=== PATIENT | female | born 1965 | race Caucasian/White ===

== ENCOUNTER 2018-04-25 11:00 | Outpatient (RCR) | payer OTHER, SELFPAY ==
--- NOTE | 2018-03-21 14:17 | HP.PTEVAL_ITS ---
Patient's Visit Information DARWIN PORTILLO is a 53 year old F referred to Physical Therapy by Marysol Juarez DO with a diagnosis of Left knee pain. Date of Evaluation: 03/21/18 Physical Therapist: Kathrine Palmer - Visit Plan Frequency: 2x /Week Duration: 3 Weeks Plan: Focus on HEP for core and LE s/s - Subjective Subjective: Left knee surgery about a year ago Meniscus repair and microfracture. Did injections after and its never been great. Has never been able to run, was in a knee brace- did not have therapy. Was getting by but 4 weeks ago her knee started to hurt. The pain is worse than she has ever had but does not feel like its in the joint. Axtell the knee buckle occasionally but never preditcable. The problem is that their is no pattern. Pain feels like its in the posterior knee on the left. When she works a 12 hour shift she can' t use her leg to get into the car. Feels like by noon she is dragging the leg with walking. Has tried a TENS unit. Took a medrol dose pack and it felt a lot better- but by the end she felt it coming back. wakes her up at night. Agg: driving, walking, standing Eases: nothing. Worst: 7/10 Best: 0/10. 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 X-ray was negative- no MRI. 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 Meds: Hctz - Objective Posture: FH, RS. Gait: slightly antalgic- decreased stance on the left LE with poor heel/toe pattern. HR/TR: unable on the left without significant UE A. SLS : 10 sec then LOB. Stairs:asc/desc 8' recip- poor control with descent. ROM: 0 -125 degrees. Palpation: tender along medial and lateral joint line and posterior to the fibular head. Strength: Core: poor, Hip: 4-/5 throughout, Knee : 4+/5, ankle: 5/5 - Goals Goal 1:: Patient will be I with HEP and progression Goal Time Frame: 4-6 Weeks Goal 2:: Patient ambulate >300 feet with a normalized gait pattern Goal Time Frame: 4-6 Weeks Goal 3:: Patient will asc/desc 8'' stairs recip with 1 HR and controlled pattern Goal Time Frame: 4-6 Weeks Goal 4:: Patient will report 0/10 pain for 1 week Goal Time Frame: 4-6 Weeks Goal 5:: Patient will maintain proper posture t/o to demo increased core s/s Goal Time Frame: 4-6 Weeks - Rehabilitation Potential Physical Therapy Diagnosis: patient presents with hypomobility- she has decreased strength and muscular endurance leading to increased pain with ADL's. Rehabilitation Potential: Fair - Anticipated Interventions Patient/Client Instruction: Educate patient on: Benefits of Fitness Program For the Purpose of:: To improve ability to perform ADL's Therapeutic Exercise to Include: Strength training, Endurance training, Balance training, Agility training, Body mechanics, Postural training, Flexibilty training, Gait and locomotor training, Dynamic Lumbar Stabilization For the Purpose of:: To improve muscle performance and motor function Manual Therapy Techniques to Include: Mobilization, Functional dry needling, Soft tissue mobilization For the Purpose of:: To improve nutrient delivery to tissue TENS: Yes Cryotherapy (ice pack, ice massage): Yes Thermo therapy (hot pack): Yes Ultrasound (thermal/non thermal): Yes For the Purpose of:: To decrease pain Thank you for the opportunity to evaluate your patient. For Medicare and Medicare HMO plans, please review the plan of care and approve it. It will need to be FAXED BACK to us at [phone] for Medicare purposes. Please let me know if there are questions or concerns regarding this plan of care. Physician Signature: Date:
--- NOTE | 2018-06-04 16:42 | HP.PT.NRP ---
HP - Discharge Summary (1) - Patient Information DARWIN PORTILLO was seen in my office for initial evaluation on 03/21/18. The following Plan of Care was established for this patient: Initial Frequency: 2x /Week Initial Duration: 3 Weeks - Anticipated Interventions Patient/Client Instruction: Educate patient on: Benefits of Fitness Program For the Purpose of:: To improve ability to perform ADL's Therapeutic Exercise to Include: Strength training, Endurance training, Balance training, Agility training, Body mechanics, Postural training, Flexibilty training, Gait and locomotor training, Dynamic Lumbar Stabilization For the Purpose of:: To improve muscle performance and motor function Manual Therapy Techniques to Include: Mobilization, Functional dry needling, Soft tissue mobilization For the Purpose of:: To improve nutrient delivery to tissue TENS: Yes Cryotherapy (ice pack, ice massage): Yes Thermo therapy (hot pack): Yes Ultrasound (thermal/non thermal): Yes For the Purpose of:: To decrease pain This patient was last seen in our office . Pertinent comments regarding their Physical therapy will appear below: Patient has not attended physical therapy in over 4 weeks and is appropriate for d/c. At this point I will be discontinuing this patient from physical therapy. I would be happy to see this patient again in the future if found appropriate by the physician. Thank you! Kathrine Palmer
== END 2018-04-25 19:00 | disposition home or self-care (01) ==
LOC: PT 11:00
PROVIDERS: Family Provider Family Medicine; PCP Family Medicine; Visit Provider Orthopaedic Surgery
DX: M25.562 Pain in left knee (principal); M76.52 Patellar tendinitis, left knee
CPT/HCPCS: 97035; 97110; 97140; 97161

== ENCOUNTER → 2018-05-22 16:10 | Outpatient (CLI) | payer OTHER, SELFPAY ==
--- NOTE | 2018-05-22 16:12 | MRI_ITS ---
STUDY: MRI LEFT KNEE REASON FOR EXAM: Left posterior knee pain radiating down leg, no new injury, surgery March 2017. TECHNIQUE: Standardized fat and water weighted pulse sequences were obtained in all 3 orthogonal planes. COMPARISON: MRI images 02/11/2017 and radiographs 06/09/2017. FINDINGS: There is a partial medial meniscectomy without discrete recurrent medial meniscal tear. There is mild arthrosis of the medial femorotibial compartment with very small marginal osteophytes and mild partial-thickness chondral loss of the medial femoral condyle (T2 sagittal image 9). Normal medial femoral condyle and tibial plateau. Normal medial collateral ligamentous complex (MCL). Normal distal semimembranosus, gracilis and semitendinosus tendons. Normal lateral meniscus. Normal hyaline cartilage of the lateral femorotibial compartment. Normal lateral femoral condyle and tibial plateau. Normal proximal tibiofibular articulation. Normal lateral collateral (fibular) ligament. Normal popliteus tendon. Normal biceps femoris tendon. There is intrasubstance mucoid degeneration of the anterior cruciate ligament (series 9 images 10, 11) without focal discontinuity of the ligament. Normal posterior cruciate ligament (PCL). Normal congruent patellofemoral articulation. Normal hyaline cartilage of the patellofemoral compartment. Normal medial and lateral patellar retinaculum. Normal quadriceps tendon. Normal patellar tendon. There is postoperative scarring in Hoffa's fat pad. There is a minimal volume of fluid in the knee joint. There is a thin medial patellar plica. There is mild edema in the anterior subcutis adipose space. There is no popliteal cyst. There is mild bone edema in distal femur near the attachment sites of the cruciate ligaments. MRI/Lower Ext Joint Only (Routine) IMPRESSION: Mild arthrosis of the medial femorotibial compartment. 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 Partial medial meniscectomy without demonstrated recurrent medial meniscal tear. No demonstrated lateral meniscal tear. Electronically Signed: Edwin Banuelos MD at 8:49 EDT Tel , Service support ,
== END ==
PROVIDERS: Family Provider Family Medicine; PCP Family Medicine; Visit Provider Orthopaedic Surgery
DX: S83.282A Other tear of lateral meniscus, current injury, left knee, initial encounter (principal)
CPT/HCPCS: 73721

== ENCOUNTER 2018-06-14 16:54 | Emergency (ER) | payer OTHER, SELFPAY ==
[2018-06-14 16:55] VITALS: BP 137/64; PULSE 67; RESP 15; TEMP 36.8; O2SAT 98; BMI 30.7
[2018-06-14 17:03] VITALS: BP 129/66; PULSE 63; RESP 16; O2SAT 99
--- NOTE | 2018-06-14 17:19 | EKG12_ITS ---
Test Reason : CHEST PAIN Blood Pressure : / mmHG Vent. Rate : 058 BPM Atrial Rate : 058 BPM P-R Int : 160 ms QRS Dur : 070 ms QT Int : 404 ms P-R-T Axes : 045 056 036 degrees QTc Int : 396 ms Sinus bradycardia Otherwise normal ECG Confirmed by REAL VAZQUEZ, REJI ([id number]), assistant editor GILES VILLARREAL ([id number]) on 06/18/2018 2:38:15 PM Referred By: PATRICE/ALISSA Confirmed By:REJI NOBLE MD
--- NOTE | 2018-06-14 17:20 | RAD_ITS ---
STUDY: X-RAY CHEST REASON FOR EXAM: Female, 53 years old. Chest pain TECHNIQUE: Single AP portable view of the chest. COMPARISON: 04/14/2017 FINDINGS: EKG leads overlie the chest The lungs are clear and expanded. There is no demonstrated pleural abnormality. Normal size heart. Normal mediastinum and um. Normal visualized pulmonary arteries. Normal visualized aortic arch and descending thoracic aorta. Normal visualized thoracic spine. Normal visualized ribs, clavicles, and shoulders. There is no demonstrated abnormality of the visualized soft tissue structures of the upper abdomen. RAD/Chest 1 View (Portable) IMPRESSION: No acute pulmonary process Electronically Signed: Pedro Luis Garcia MD at 17:54 EDT , Service support ,
--- NOTE | 2018-06-14 17:24 | ED.DCSUM_ITS ---
- ER Visit Summary Date of Service: 06/14/18 Chief Complaint: Chest pain, left arm pain History of Present Illness: The patient is a 53 F who noted left arm heaviness last evening and just did not feel right. This morning she is still not feeling well, had occasional pain radiating to her left neck, and felt nauseated. This afternoon she had occasional left sternal pressure. She had one brief episode of diaphoresis. Physical Examination: Vital signs are unremarkable. Patient sitting upright in bed no acute distress. Head and neck examination unremarkable. Heart is regular rate and rhythm. Lung sounds are clear. There is no reproducible chest wall tenderness. Abdomen is soft nontender. Extremity examination reveals no muscular tenderness throughout the left arm. She has normal strength on testing. She has strong pulses. Test Results: EKG is sinus bradycardia at 58 bpm with no sign of acute ischemia. CBC and chemistry studies normal. Troponin less than 0.015. Chest x-ray shows no acute process. Emergency Department Course and Treatment: Patient was given aspirin and Zofran here. On repeat evaluation she still has some heaviness in her arm. She states nausea was initially improved but is now returning. Patient will restart her reflux medication. She will be given Zofran ODT. Patient declines admission, but I did speak with Dr. Rogel and he will see her in the office tomorrow. He wishes the patient to be started on Plavix, 300 mg now and 75 mg a day. She is also to start baby aspirin daily. Treatment Plan: [] Disposition: Discharge Impression: Chest pain This note was generated with [employer] ([employer]) dictation software. It may contain incorrect words, spelling, and punctuation that were not noted in review of the chart p rior to signing ED Disposition - Plan for ED Patient: Chief Complaint: Chest Pain Referrals: Leidy Crawford DO [Primary Care Provider] -
[2018-06-14 17:27] VITALS: O2SAT 99
[2018-06-14] MEDS: Ondansetron 4 MG/2 ML Vial IV (17:28)
[2018-06-14] MEDS: 0.9% Normal Saline 1,000 ML 150 ML IV (17:28)
[2018-06-14] MEDS: Aspirin 81 MG TAB.CHEW 324 MG PO (17:28)
[2018-06-14 17:31] LABS: Absolute Lymphocyte Count 2.46 X10^3/ul (0.83-4.51); Absolute Neutrophil Count 2.2 X10^3/uL (2.0-7.7); Basophil# 0.03 X10^3/uL; Basophil% 0.6 % (0-1); Eosinophils% 1.9 % (0-5); Hematocrit 39.4 % (37-47); Hemoglobin 13.2 g/dl (12.0-15.0); Lymphocyte # 2.46 X10^3/ul (4.0); Mean Corp Hgb Conc 33.5 g/gl (32-36); Mean Corpuscular Hgb 31.6 pg (27.0-32.0); Mean Corpuscular Volume 94.3 fL (81-99); Monocyte# 0.36 X10^3/uL; Neutrophil # 2.18 X10^3/uL (2.7-7.7); Neutrophil % 42.5 % (47-70); Platelet Count 283 K/mm3 (150-450); RBC Distribution Width CV 12.4 % (11.6-14.6); RBC Distribution Width SD 42.6 fl (35.1-43.9); Red Blood Count 4.18 M/mm3 (4.2-5.4); White Blood Count 5.1 K/mm3 (4.4-11.0)
[2018-06-14 17:34] LABS: POSITIVE COUNT NO; POSITIVE DIFFERENTIAL NO; POSITIVE MORPHOLOGY NO
[2018-06-14 17:51] LABS: Anion Gap 6 (5-15); BUN 14 mg/dL (7-18); BUN/Creat Ratio 23.6 RATIO (10-20); Calcium,Total 9.7 mg/dL (8.5-10.1); Chloride 105 mmol/L (98-107); Creatinine, Serum 0.59 mg/dL (0.55-1.02); EST Glomerular Filtration Rate 112 mL/min (>60); Est Glom Filt Rate - Afr Amer 136 mL/min (>60); Estimated Creatinine Clearance 103.23 ml/min; Glucose 88 mg/dL (74-106); Potassium 3.5 mmol/L (3.5-5.1); Sodium Level 139 mmol/L (136-145)
[2018-06-14 17:59] VITALS: BP 113/64; PULSE 54; RESP 17; O2SAT 99
[2018-06-14 18:00] VITALS: BP 113/64; PULSE 52; RESP 15; O2SAT 97
--- NOTE | 2018-06-14 18:50 | ED.DEP ---
ED Disposition - Plan for ED Patient: Disposition: Home or Assisted Living Chief Complaint: Chest Pain Instructions: ED Chest Pain Atypical Unkn Cause Prescriptions: Ondansetron [Zofran Odt] 4 mg PO Q8H PRN PRN #10 tablet PRN Reason: Nausea Aspirin [Aspirin, Baby] 81 mg PO DAILY@0800 #30 tab.chew Clopidogrel Bisulfate [Plavix] 75 mg PO DAILY #30 tablet Referrals: Angel Rogel MD [STAFF PHYSICIAN] - 1 Day
[2018-06-14] MEDS: Ondansetron ODT 4 MG Tablet PO (18:56)
[2018-06-14] MEDS: Clopidogrel Bisulfate 300 MG Tablet PO (18:57)
[2018-06-14 19:04] VITALS: BP 132/67; PULSE 52; RESP 12; O2SAT 99
--- NOTE | 2018-06-14 19:08 | ED.RN ---
REVIEWED D/C INSTRUCTIONS, FOLLOW UP CARE, PRESCRIPTIONS, AND S/S THAT WOULD WARRANT A RETURN TO THE ED WITH PT. PT VERBALIZED AN UNDERSTANDING AND DENIES FURTHER QUESTIONS FOR THIS RN. PT SKIN P/W/D, RESP EVEN AND UNLABORED, PT A&O X 3, NO DISTRESS NOTED. PT AMBULATED OUT OF ED, GAIT STEADY.
== END 2018-06-14 19:09 | disposition home or self-care (01) ==
PROVIDERS: Emergency Provider Emergency Medicine; Family Provider Family Medicine; PCP Family Medicine
DX: R07.9 Chest pain, unspecified (principal); M79.602 Pain in left arm; R61 Generalized hyperhidrosis; R11.0 Nausea; Z79.82 Long term (current) use of aspirin; Z79.899 Other long term (current) drug therapy; F17.200 Nicotine dependence, unspecified, uncomplicated
CPT/HCPCS: 71045; 80048; 84484; 85025; 93005; 96361; 96374; 99285; J7030; A4216; J2405

== ENCOUNTER 2018-06-15 12:51 | Observation (INO) | payer OTHER, SELFPAY ==
[2018-06-15] VITALS (15 sets, daily range): BP systolic 95–130; BP diastolic 54–67; PULSE 57–67; RESP 12–16; TEMP 36.6–37.1; O2SAT 93–98; BMI 30.7
--- NOTE | 2018-06-15 13:03 | EKG12_ITS ---
Test Reason : Blood Pressure : / mmHG Vent. Rate : 068 BPM Atrial Rate : 068 BPM P-R Int : 146 ms QRS Dur : 074 ms QT Int : 400 ms P-R-T Axes : 036 054 032 degrees QTc Int : 425 ms Normal sinus rhythm Normal ECG When compared with ECG of 14-JUN-2018 17:02, MANUAL COMPARISON REQUIRED, DATA IS UNCONFIRMED Confirmed by REAL VAZQUEZ, REJI ([id number]), non linear editor GILES VILLARREAL ([id number]) on 06/20/2018 3:40:27 PM Referred By: Tico Howard Confirmed By:REJI NOBLE MD
--- NOTE | 2018-06-15 13:07 | CASEMGMT ---
According to [facility] website, the following are in-network tertiary facilities: [facility], [place], [facility], [place], [facility], [facility], [place], [facility], and . Vanna BERNAL CM
[2018-06-15 14:01] LABS: International Normalized Ratio 1.1; Prothrombin Time (Protime)PT. 13.7 SECONDS (11.7-14.9)
[2018-06-15 14:14] LABS: Anion Gap 10 (5-15); BUN 12 mg/dL (7-18); BUN/Creat Ratio 19.7 RATIO (10-20); Calcium,Total 8.7 mg/dL (8.5-10.1); Chloride 107 mmol/L (98-107); Creatinine, Serum 0.61 mg/dL (0.55-1.02); EST Glomerular Filtration Rate 109 mL/min (>60); Est Glom Filt Rate - Afr Amer 132 mL/min (>60); Estimated Creatinine Clearance 99.85 ml/min; Glucose 103 mg/dL (74-106); Potassium 3.6 mmol/L (3.5-5.1); Sodium Level 139 mmol/L (136-145)
[2018-06-15] MEDS: Clopidogrel Bisulfate 75 MG Tablet PO (14:20)
[2018-06-15] MEDS: Aspirin 81 MG TAB.CHEW PO (14:20)
[2018-06-15] MEDS: diazePAM 5 MG Tablet PO (14:43)
[2018-06-15] MEDS: DiphenhydrAMINE 50 MG/ML Syringe 25 MG IV (14:43)
[2018-06-15] MEDS: 0.9% NaCl Peripheral Flush Adult/Peds IV (14:44)
[2018-06-15 14:46] LABS: Pregnancy, Serum, hCG Quali. NEGATIVE Negative (0-9 Nonpreg)
--- NOTE | 2018-06-15 17:18 | PCM.HP.STD ---
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 She had a work up in the ER with a negative EKG, normal troponin. She was loaded with aspirin and plavix, but she refused to stay since her work-up was essentially negative. She went home and felt ok, this morning she was feeding her animals and started having the pain again. She was called by the cardiologists office and asked to come in for a stress test then an appointments, however it was decided to proceed with cath, so she was admitted since there were no outpatient beds available. She denies any SOB, dizziness, lightheadedness or fainting. She states that the pain occurs both at rest and with exertion Past Medical History Past Medical History (Chronic Problems): Chronic Problems (Last Updated 06/15/18 @ 17:05 by Aviva Byrne) Family history of ischemic heart disease (Chronic) History of left heart catheterization (Chronic ~06/15/18) Per Dr. Rogel: normal coronaries and normal EF History of eating disorder (Chronic) History of insomnia (Chronic) Tobacco dependence (Chronic) Migraine (Chronic) Rheumatoid arthritis (Chronic) Medical History: Medical History (Last Updated 06/15/18 @ 17:05 by Aviva Byrne) Family history of ischemic heart disease (Chronic) Z82.49 Hyperlipidemia (Acute) E78.5 History of eating disorder (Chronic) Z86.59 History of insomnia (Chronic) Z87.898 Tobacco dependence (Chronic) F17.200 Chest pain (Acute) R07.9 Migraine (Chronic) G43.909 Rheumatoid arthritis (Chronic) M06.9 Allergies oxycodone HCl [From Percocet] Allergy (Severe, Verified 06/15/18 11:47) Anaphylaxis gabapentin [From Horizant] Adverse Reaction (Intermediate, Verified 06/15/18 11:47) Edema Home Medications: Ambulatory Orders Medication Instructions Recorded Albuterol Inhaler [Ventolin Hfa] 1 - 2 puff INHALATION Q4H PRN PRN 05/01/14 Ibuprofen [Advil] 200 mg PO Q6H PRN PRN 03/22/17 Aspirin [Aspirin, Baby] 81 mg PO DAILY@0800 #30 tab.chew 06/14/18 Meloxicam [Mobic] 13 mg PO DAILY 06/14/18 Ondansetron [Zofran Odt] 4 mg PO Q8H PRN PRN #10 tab 06/14/18 atorvastatin 20 mg tablet 20 mg PO DAILY #30 tab 06/15/18 hydrochlorothiazide 25 mg tablet 12.5 mg PO PRN PRN 06/15/18 propranolol ER 80 mg capsule,24 80 mg PO DAILY #30 cap 06/15/18 hr,extended release Surgical History: Surgical History (Last Updated 06/15/18 @ 17:05 by Aviva Byrne) History of left heart catheterization (Chronic) Onset Date: ~06/15/[address] 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 Denies: Heaviness, Light Headedness, Palpitations Respiratory: Denies: Cough, Shortness of Breath, Shortness of breath at rest, Sputum production Gastrointestinal: Denies: Abdominal Pain, Nausea, Vomiting Genitourinary: Denies: Dysuria Musculoskeletal: Denies: Joint Pain, Joint Tenderness Skin: Denies: Rash, Wounds Neurological: Denies: Numbness, Tingling, Focal weakness Psychiatric: Denies: Anxiety, Depression Hematologic/ Lymphatic: Denies: Easy Bruising, Easy Bleeding VTE Information - Inpt Only VTE Present on Admission: No - Physical Exam General: Alert, Oriented x3, Cooperative, No apparent distress HEENT: Atraumatic, PERRLA, EOMI, Normocephalic Oral: Moist Mucosa Neck: Supple, No JVD Lungs: Clear to auscultation, Normal air movement, No rhonchi, No wheeze, No rales Cardiovascular: Regular rate, Regular Rhythm, Normal S1, Normal S2, No murmurs Abdomen: Soft, Non Tender, Non-Distended, No Hepato-splenomegaly Extremities: No edema, Capillary Refill Less than 3 Seconds Skin: No rashes, No breakdown Musculoskeletal: No Tenderness to Palpation of Joints or Extremities Neurological: Neuro grossly intact, Sensory exam intact to light touch and pain Psych/Mental Status: Normal Affect, Appropriate Vital Signs Temp Pulse Resp BP Pulse Ox 97.8 F 62 16 95/56 L 95 06/15/18 13:36 06/15/18 17:15 06/15/18 17:15 06/15/18 17:15 06/15/18 17:15 Oxygen Delivery Method Room Air Weight: 190 lb Body Mass Index (BMI) 30.7 Laboratory Tests Past 24 Hrs 06/15/18 06/15/18 06/15/18 13:33 13:33 13:33 PT 13.7 INR 1.1 Sodium 139 Potassium 3.6 Chloride 107 Carbon Dioxide 22.0 Anion Gap 10 BUN 12 Creatinine 0.61 Estim Creat Clear Calc 99.85 Est GFR (MDRD) Af Amer 132 Est GFR (MDRD) Non-Af 109 BUN/Creatinine Ratio 19.7 Glucose 103 Calcium 8.7 Troponin I < 0.015 Serum , Qual NEGATIVE Assessment/Plan All Active Problems (Last Updated 06/15/18 @ 17:05 by Aviva Byrne) Hyperlipidemia (Acute) Chest pain (Acute) 1. Chest pain/HLD/HTN - She is to undergo a cardiac cath today - She does appear anxious at times, so will pre-medicate with valium - Troponin is normal and EKG is non-ischemic - Given how late this cath is occurring, will plan to keep overnight - She was loaded with plavix last night in the ER, will give her baby aspirin and 75 mg of plavix - c/w HCTZ - Plan to DC on propranolol and a statin in the am 2. RA - stable - c/w mobic for the pain 3. Tobacco abuse - discussed cessation - can order a nicotine patch if needed DVT: Heparin Diet: Cardiac Code Visit OBSV E&M: [id number] Initial observation care L3
--- NOTE | 2018-06-15 17:41 | CL.D_ITS ---
Patient Name: DARWIN PORTILLO Study Date: 06/15/2018 Performing: Angel Rogel MD Ht: 66.14 inches 168 cm : 1965 Wt: 189.6 lbs 86 kg Age: 53 Gender: female BSA: 1.96 PROCEDURE(S) PERFORMED IL67-WBR/COR/LV CLINICAL PROFILE AND INDICATIONS Indications: New Onset Angina <= 2 months, Suspected CAD Heart Failure: None Stress/Imaging Stress/Image Study Performed: No Angina Classification Anginal Classification w/in 2 Weeks: CCS III CAD Presentations: Unstable angina. Comorbidities/Risk Factors: Current/Recent Smoker (< 1year) CONCLUSIONS Normal coronary arteries Normal LV size, wall motion,and systolic function RECOMMENDATIONS Management as per referring Information Systems Project Manager d/c plavix, start propranolol xl 80mg po daily, start lipitor 20mg po qhs. F/u with Dr Rogel DESCRIPTION OF PROCEDURE The patient arrived to the procedure lab. The risks and benefits of the procedure as well as a full d escription of our services here and current unavailability of surgical backup were fully explained to the patient and/or their significant other prior to the catheterization. The Timeout was completed, verifying the correct patient and procedure. The patient's procedural site was prepped and draped in the usual fashion. Local anesthetic was given subcutaneously to right groin region with Lidocaine 2%. Using a modified Seldinger technique, arterial access was obtained via the right femoral artery, a 4 Fr sheath was inserted Left Coronary Artery selective angiography was performed in multiple views us ing a 4 Fr. JL5 catheter. Right Coronary Artery selective angiography was then performed in multiple views using a 4 Fr. 3DRC catheter. Left Ventriculography was performed in HERNANDEZ projection using a 4 Fr . Pigtail catheter. LV to AO pullback pressures were then recorded.The arterial sheath was pulled and manual compression applied until hemostasis is achieved. CORONARY ANGIOGRAPHY DOMINANCE: Right Dominant LEFT HEART ASSESSMENT Left Ventricular Ejection Fraction: by LV Gram 65 % Normal LV wall motion Normal Left Ventricular systolic function Normal Left Ventricular systolic function LEFT MAIN: Angiographically normal LEFT ANTERIOR DECENDING ARTERY: Angiographically normal CIRCUMFLEX ARTERY: Angiographically normal RIGHT CORONARY ARTERY: Angiographically normal COMPLICATIONS No Complications PROCEDURE MEDICATIONS Versed 1 mg IV Fentanyl 25 mcg IV Versed 1 mg IV Demoral 25 mg IV Oxygen: 2 L/min via nasal cannula SUMMARY OF HEMODYNAMIC DATA Time AIR REST ECG 16:33:00 AO 148/71 (101) SA 16:43:00 LV 157/-17, 6 16:48:08 LV 158/-14, 12 16:48:14 LVp 147/66, 70 16:48:31 AOp 145/66 (98) 16:48:36 Signed By Angel Rogel MD On 06/15/2018 16:58:58 Angel Rogel MD
--- NOTE | 2018-06-15 21:25 | NURSING ---
Recovery complete. Pt walked in woods with this RN. Right cath dressing C/D/I.
[2018-06-16 02:33] VITALS: BP 91/45; PULSE 69; RESP 12; TEMP 36.6; O2SAT 96
[2018-06-16 03:04] VITALS: PULSE 57
[2018-06-16 07:31] VITALS: PULSE 62
[2018-06-16 07:47] VITALS: BP 113/51; PULSE 65; RESP 16; TEMP 36.7; O2SAT 94
--- NOTE | 2018-06-16 07:48 | DCINST_ITS ---
- Discharge Diagnoses Current Active Problems: Current Active and Chronic Problems (Last Updated 06/15/18 @ 17:05 by Aviva Byrne) History of eating disorder (Chronic) History of insomnia (Chronic) You will use the following diet at home:: Cardiac Your food should be the consistency of: Regular Your liquids should be the consistency of: Regular/Thin Discharge Activity: Return to Normal Activity Call your doctor if your incision/area has: Sudden Increased Bleeding, Increased Pain/ Swelling, Increased Redness, Foul Smelling Discharge Call your doctor if you observe: Fever of 101 or Higher, Fainting spells, Chest pain, Increased palpitations (irregular heartbeat) Allergies/Adverse Reactions: Allergies oxycodone HCl [From Percocet] Allergy (Severe, Verified 06/15/18 11:47) Anaphylaxis gabapentin [From Horizant] Adverse Reaction (Intermediate, Verified 06/15/18 11:47) Edema Medications to take at Discharge Albuterol Inhaler [Ventolin Hfa] 1 - 2 puff INHALATION Q4H PRN PRN 05/01/14 Ibuprofen [Motrin] 200 mg PO Q6H PRN PRN 03/22/17 Aspirin [Aspirin, Baby] 81 mg PO DAILY@0800 #30 tab.chew 06/14/18 Meloxicam [Mobic] 13 mg PO DAILY 06/14/18 Ondansetron [Zofran Odt] 4 mg PO Q8H PRN PRN #10 tab 06/14/18 atorvastatin 20 mg tablet 20 mg PO DAILY #30 tab 06/15/18 hydrochlorothiazide 25 mg tablet 12.5 mg PO PRN PRN 06/15/18 propranolol ER 80 mg capsule,24 hr,extended release 80 mg PO DAILY #30 cap 06/15/18 Primary Care Physician: Leidy Crawford DO [Primary Care Provider] - Test Results: Test results from this visit will be discussed in further detail at your follow- up appointment, if applicable. Please Follow Up With: Angel Rogel MD When: Call the office
--- NOTE | 2018-06-16 07:52 | DS.PCM_ITS ---
Discharge Date and Diagnosis Date of Admission: 06/15/18 Date of Discharge: 06/16/18 - Secondary Discharge Diagnosis Chronic Problems (Last Updated 06/15/18 @ 17:05 by Aviva Byrne) Family history of ischemic heart disease (Chronic) History of left heart catheterization (Chronic ~06/15/18) Per Dr. Rogel: normal coronaries and normal EF History of eating disorder (Chronic) History of insomnia (Chronic) Tobacco dependence (Chronic) Migraine (Chronic) Rheumatoid arthritis (Chronic) Hospital Course and Treatment Imaging Results: None Consults: None Operations: None Procedures: Cardiac catheterization - CONCLUSIONS Normal coronary arteries Normal LV size, wall motion,and systolic function RECOMMENDATIONS Management as per referring Neighborhood Conservation Officer d/c plavix, start propranolol xl 80mg po daily, start lipitor 20mg po qhs. 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 She had a work up in the ER with a negative EKG, normal t roponin. She was loaded with aspirin and plavix, but she refused to stay since her work-up was essentially negative. She went home and felt ok, this morning she was feeding her animals and started having the pain again. She was called by the cardiologists office and asked to come in for a stress test then an appointments, however it was decided to proceed with cath, so she was admitted since there were no outpatient beds available. She denies any SOB, dizziness, lightheadedness or fainting. She states that the pain occurs both at rest and with exertion Vital Signs - 24 hr Temp Pulse Resp BP Pulse Ox 06/16/18 07:31 62 06/16/18 03:04 57 L 06/16/18 02:33 97.8 F 69 12 91/45 L 96 06/15/18 23:04 61 06/15/18 21:17 98.2 F 61 14 109/54 L 96 06/15/18 21:16 98.2 F 66 14 109/54 L 98 06/15/18 20:11 98.7 F 62 16 111/56 L 95 06/15/18 19:15 61 16 127/59 H 97 06/15/18 19:05 57 L 06/15/18 18:45 63 16 130/66 H 97 06/15/18 18:15 58 L 16 103/59 L 93 06/15/18 18:00 58 L 16 116/57 L 96 06/15/18 17:45 62 16 113/56 L 95 06/15/18 17:30 98.3 F 57 L 12 115/67 95 06/15/18 17:15 62 16 95/56 L 95 06/15/18 15:00 59 L 06/15/18 13:36 97.8 F 67 14 128/62 H 96 06/15/18 13:35 66 General: Alert, Oriented x3, Cooperative, No apparent distress HEENT: Atraumatic, PERRLA, EOMI, Normocephalic Oral: Moist Mucosa Neck: Supple, No JVD Lungs: Clear to auscultation, Normal air movement, No rhonchi, No wheeze, No rales Cardiovascular: Regular rate, Regular Rhythm, Normal S1, Normal S2, No murmurs Abdomen: Soft, Non Tender, Non-Distended, No Hepato-splenomegaly Extremities: No edema, Capillary Refill Less than 3 Seconds Skin: No rashes, No breakdown Musculoskeletal: No Tenderness to Palpation of Joints or Extremities Neurological: Neuro grossly intact, Sensory exam intact to light touch and pain Psych/Mental Status: Normal Affect, Appropriate Hospital Course: 1. Chest Pain - She was directly admitted for cardiac cath yesterday given her chest pain, tobacco use, obesity, and extensive family history. Her EKG yesterday and the day before in the ER were non-ischemic and the troponins were both negative. The Cardiac cath was clean and no interventions were needed. Given her age, smoking, and family risk factors, she was started on lipitor at discharge as well as propranolol. Post cath, she did well and the has minimal to no pain at the incision. Discharge today with outpatient follow-up with her PCP and cardiology. Discharge Activity: Return to Normal Activity Call your doctor if your incision/area has: Sudden Increased Bleeding, Increased Pain/ Swelling, Increased Redness, Foul Smelling Discharge Call your doctor if you observe: Fever of 101 or Higher, Fainting spells, Chest pain, Increased palpitations (irregular heartbeat) Home Medications: Medications to take at Discharge Albuterol Inhaler [Ventolin Hfa] 1 - 2 puff INHALATION Q4H PRN PRN 05/01/14 Ibuprofen [Motrin] 200 mg PO Q6H PRN PRN 03/22/17 Aspirin [Aspirin, Baby] 81 mg PO DAILY@0800 #30 tab.chew 06/14/18 Meloxicam [Mobic] 13 mg PO DAILY 06/14/18 Ondansetron [Zofran Odt] 4 mg PO Q8H PRN PRN #10 tab 06/14/18 atorvastatin 20 mg tablet 20 mg PO DAILY #30 tab 06/15/18 hydrochlorothiazide 25 mg tablet 12.5 mg PO PRN PRN 06/15/18 propranolol ER 80 mg capsule,24 hr,extended release 80 mg PO DAILY #30 cap 06/15/18 Primary Care Physician: Leidy Crawford DO [Primary Care Provider] - Please Follow Up With: Angel Rogel MD When: Call the office Disposition: Home Minutes spent on discharge:: 35 Patient Condition:: Good Medical Necessity - Tobacco Use Smoking Status: Current every day smoker Meaningful Use Info Meaningful Use Diagnoses (Choose all that apply): None applicable Code Visit OBSV E&M: 66172 Observation care discharge
[2018-06-16 08:11] VITALS: BP 113/51; PULSE 65; RESP 16; TEMP 36.7; O2SAT 94
--- NOTE | 2018-06-16 09:00 | NURSING ---
Discharge teaching completed. Voices understanding of same. Denies questions when asked.
== END 2018-06-16 07:47 | disposition home or self-care (01) ==
PROVIDERS: Internal Medicine Cardiovascular Disease; Admitting Provider Family Medicine; Family Provider Family Medicine; PCP Family Medicine; Referring Provider Family Medicine; Visit Provider Family Medicine
DX: R07.89 Other chest pain (principal); M06.9 Rheumatoid arthritis, unspecified; M79.602 Pain in left arm; M54.2 Cervicalgia; E66.9 Obesity, unspecified; E78.5 Hyperlipidemia, unspecified; I10 Essential (primary) hypertension; Z68.30 Body mass index [BMI] 30.0-30.9, adult; Z71.3 Dietary counseling and surveillance; Z79.899 Other long term (current) drug therapy; Z79.82 Long term (current) use of aspirin; Z79.02 Long term (current) use of antithrombotics/antiplatelets; Z79.1 Long term (current) use of non-steroidal anti-inflammatories (NSAID); Z82.49 Family history of ischemic heart disease and other diseases of the circulatory system; F17.210 Nicotine dependence, cigarettes, uncomplicated
CPT/HCPCS: 36415; 80048; 84484; 84703; 85610; 93005; 93458; 96374; 99152; 99218; 99406; A4216; C1769; C1894; G0378; G0379; Q9967

== ENCOUNTER 2018-07-05 16:25 | Emergency (ER) | payer OTHER, SELFPAY ==
[2018-07-05 16:26] VITALS: BP 163/74; PULSE 104; PULSE 124; RESP 18; RESP 22; TEMP 36.1; O2SAT 97; O2SAT 98; BMI 30.7
--- NOTE | 2018-07-05 16:49 | RAD_ITS ---
STUDY: X-RAY CHEST REASON FOR EXAM: Female, 53 years old. Palpitations TECHNIQUE: Single AP portable view of the chest. COMPARISON: 06/14/2018 FINDINGS: EKG leads overlie the chest The lungs are clear and expanded. There is no demonstrated pleural abnormality. Normal size heart. Normal mediastinum and mu. Normal visualized pulmonary arteries. Normal visualized aortic arch and descending thoracic aorta. Normal visualized thoracic spine. Normal visualized ribs, clavicles, and shoulders. There is no demonstrated abnormality of the visualized soft tissue structures of the upper abdomen. RAD/Chest 1 View (Portable) IMPRESSION: Normal x-ray examination of the chest. Electronically Signed: Pedro Luis Garcia MD at 17:06 EDT , Service support ,
--- NOTE | 2018-07-05 16:49 | EKG12_ITS ---
Test Reason : Blood Pressure : / mmHG Vent. Rate : 095 BPM Atrial Rate : 095 BPM P-R Int : 140 ms QRS Dur : 072 ms QT Int : 348 ms P-R-T Axes : 044 063 023 degrees QTc Int : 437 ms Normal sinus rhythm Normal ECG Confirmed by TIM JONES ([id number]), editor magazine GILES VILLARREAL ([id number]) on 07/10/2018 8:45:31 AM Referred By: LUCIA Confirmed By:TIM JONES
[2018-07-05] MEDS: Ondansetron 4 MG/2 ML Vial IV (17:12)
[2018-07-05 17:20] VITALS: O2SAT 96
[2018-07-05 17:28] VITALS: PULSE 80; RESP 16; O2SAT 96
[2018-07-05 17:44] LABS: Absolute Lymphocyte Count 0.87 X10^3/ul (0.83-4.51); Absolute Neutrophil Count 7.3 X10^3/uL (2.0-7.7); Basophil# 0.01 X10^3/uL; Basophil% 0.1 % (0-1); Hematocrit 42.5 % (37-47); Hemoglobin 14.4 g/dl (12.0-15.0); Lymphocyte # 0.87 X10^3/ul (4.0); Lymphocyte % 10.5 % (19-41); Mean Corp Hgb Conc 33.9 g/gl (32-36); Mean Corpuscular Hgb 32.1 pg (27.0-32.0); Mean Corpuscular Volume 94.9 fL (81-99); Mean Platelet Vol. 9.2 fl (6.2-12.0); Monocyte# 0.08 X10^3/uL; Neutrophil # 7.29 X10^3/uL (2.7-7.7); Neutrophil % 88.2 % (47-70); Platelet Count 366 K/mm3 (150-450); RBC Distribution Width CV 12.1 % (11.6-14.6); RBC Distribution Width SD 41.1 fl (35.1-43.9); Red Blood Count 4.48 M/mm3 (4.2-5.4); White Blood Count 8.3 K/mm3 (4.4-11.0)
[2018-07-05 17:50] LABS: POSITIVE COUNT NO; POSITIVE DIFFERENTIAL NO; POSITIVE MORPHOLOGY NO
[2018-07-05 18:10] VITALS: BP 124/74; PULSE 74; RESP 16; O2SAT 96
[2018-07-05 18:10] LABS: Anion Gap 9 (5-15); BUN 9 mg/dL (7-18); BUN/Creat Ratio 10.7 RATIO (10-20); Calcium,Total 9.4 mg/dL (8.5-10.1); Chloride 105 mmol/L (98-107); Creatinine, Serum 0.84 mg/dL (0.55-1.02); EST Glomerular Filtration Rate 75 mL/min (>60); Est Glom Filt Rate - Afr Amer 91 mL/min (>60); Estimated Creatinine Clearance 72.51 ml/min; Glucose 137 mg/dL (74-106); Potassium 3.2 mmol/L (3.5-5.1); Sodium Level 138 mmol/L (136-145); Thyroid Stim Hormone (TSH) 0.49 uIU/mL (0.358-3.74)
[2018-07-05 18:20] LABS: D-Dimer Quantitative (DVT/PE) < 0.27 FEU/ug/m (0.27-0.49)
[2018-07-05 19:01] VITALS: BP 115/63; PULSE 66; RESP 16; O2SAT 97
--- NOTE | 2018-07-05 19:18 | ED.DCSUM_ITS ---
- ER Visit Summary Date of Service: 07/05/18 Chief Complaint: Palpitations History of Present Illness: The patient is a 53 F who presents with palpitations. This began about an hour ago. It waxes and wanes. It is associated with shortness of breath. She also reports some recent productive cough. She reports nausea without vomiting. She has been undergoing a workup for this including laboratory studies and a recent negative cardiac catheterization. She was put on propanolol but had adverse effects and syncope so this was recently discontinued. Physical Examination: Initial heart rate 124 respiratory rate 22 vitals otherwise unremarkable Moist mucous members Heart regular rhythm tachycardia Lungs are clear Abdomen soft Patient does have some peripheral edema which is symmetric and pitting Alert Test Results: EKG shows normal sinus rhythm at a rate of 95. Chest x-ray is normal. Labs notable for potassium 3.2. Troponin negative. D-dimer negative. TSH normal. Emergency Department Course and Treatment: Patient was given IV fluids and Zofran. On reevaluation she feels better except for complaining of fatigue. 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 Rogel. We will arrange for the patient to have an event monitor. Dr. Rogel also recommended trying Cardizem given that the propanolol was not well tolerated. Patient understands to return for new or worsening symptoms. She will follow-up as an outpatient. She was discharged. Treatment Plan: [] Disposition: Discharge Impression: Palpitations Shortness of breath This note was generated with [employer] dictation software. It may contain incorrect words, spelling, and punctuation that were not noted in review of the chart prior to signing ED Disposition - Plan for ED Patient: Chief Complaint: Palpitations Referrals: Leidy Crawford DO [Primary Care Provider] -
--- NOTE | 2018-07-05 19:18 | ED.DEP ---
ED Disposition - Plan for ED Patient: Chief Complaint: Palpitations Instructions: ED Palpitations Prescriptions: Diltiazem CD [Cardizem CD] 120 mg PO DAILY #14 cap Referrals: Leidy Crawford DO [Primary Care Provider] - Angel Rogel MD [STAFF PHYSICIAN] -
[2018-07-05 19:26] VITALS: BP 115/63; PULSE 78; RESP 16; O2SAT 98
[2018-07-05] MEDS: dilTIAZem CD 120 MG Capsule PO (19:34)
== END 2018-07-05 19:41 | disposition home or self-care (01) ==
PROVIDERS: Emergency Provider Emergency Medicine; Family Provider Family Medicine; PCP Family Medicine
DX: R00.2 Palpitations (principal); R06.02 Shortness of breath; Z72.0 Tobacco use
CPT/HCPCS: 71045; 80048; 84443; 84484; 85025; 85379; 93005; 96374; 99285; A4216; J2405

== ENCOUNTER → 2018-08-14 11:41 | Outpatient (CLI) | payer OTHER, SELFPAY ==
[2018-08-14 12:41] LABS: Anion Gap 10 (5-15); BUN 14 mg/dL (7-18); BUN/Creat Ratio 18.8 RATIO (10-20); Calcium,Total 8.5 mg/dL (8.5-10.1); Chloride 107 mmol/L (98-107); Creatinine, Serum 0.74 mg/dL (0.55-1.02); EST Glomerular Filtration Rate 87 mL/min (>60); Est Glom Filt Rate - Afr Amer 105 mL/min (>60); Glucose 102 mg/dL (74-106); Potassium 3.9 mmol/L (3.5-5.1); Sodium Level 142 mmol/L (136-145)
[2018-08-14 13:29] LABS: Digoxin Level 1.06 ng/mL (0.80-2.00)
== END ==
PROVIDERS: Family Provider Family Medicine; PCP Family Medicine; Visit Provider Emergency Medicine
DX: R53.1 Weakness (principal)
CPT/HCPCS: 80048; 80162

== ENCOUNTER → 2018-08-15 06:34 | Outpatient (CLI) | payer OTHER, SELFPAY ==
--- NOTE | 2018-08-15 15:04 | NEURO ---
NCS and/or EMG Patient Report Ordering Doctor: Marysol Juarez DATE OF SERVICE: 08/15/18 Sweta Cullen is a 53-year-old female who presents for electrodiagnostic testing of the left lower limb. She reports sharp pain in the left lateral lower leg with intermittent numbness. Electrodiagnostic findings left common peroneal nerve demonstrates prolonged distal latency with reduced amplitude and reduced conduction velocity. There is no significant drop in conduction across the fibular head. Normal left tibial motor response. Prolonged left sural latency is noted. Normal left superficial peroneal and left medial plantar response. Needle EMG testing showed decreased recruitment in left tibialis anterior and left peroneus longus. Electrodiagnostic impression: This is an abnormal study in the left lower limb 1. 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 There is some evidence of axonal loss. There is no evidence of conduction block at the fibular head. Would consider repeat study in 6-12 months to evaluate for improvement. 2. 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 If there are any further questions, please do not hesitate to contact me
== END ==
PROVIDERS: Family Provider Family Medicine; PCP Family Medicine; Referring Provider Orthopaedic Surgery; Visit Provider Orthopaedic Surgery
DX: R29.898 Other symptoms and signs involving the musculoskeletal system (principal)
CPT/HCPCS: 95886; 95910

== ENCOUNTER → 2018-09-26 15:34 | Outpatient (CLI) | payer OTHER, SELFPAY ==
--- NOTE | 2018-09-26 15:45 | MRI_ITS ---
STUDY: MRI THORACIC SPINE WITHOUT CONTRAST REASON FOR EXAM: Female, 53 years old. Add normal nerve conduction study. Left leg weakness. TECHNIQUE: Standardized fat and water weighted pulse sequences were obtained in the sagittal and axial planes. COMPARISON: None. FINDINGS: Normal kyphosis of the thoracic spine. There is no substantial scoliosis. T1-2, T2-3, T3-4, T4-5, T5-6, T6-7, T7-8, T8-9, T9-10, T10-11, T11-12: Normal endplates. Normal disc hydration, heights and morphology of the corresponding intervertebral discs. Minimal noncompressive spondylotic changes are noted at several levels. Normal central canal and intervertebral neural foramina at the corresponding levels. Normal visualized thoracic cord. Normal conus medullaris that terminates at the T12 level. The soft tissue structures are unremarkable. MRI/Spine Thoracic (Routine) IMPRESSION: Minimal, noncompressive spondylotic changes, otherwise negative study. Electronically Signed: Shelby Bowman MD at 23:52 EST Tel , Service support ,
--- NOTE | 2018-09-26 15:45 | MRI_ITS ---
STUDY: MRI LUMBAR SPINE WITHOUT CONTRAST REASON FOR EXAM: Female, 53 years old. Left leg numbness. Right-sided pain and numbness. TECHNIQUE: Standardized fat and water weighted pulse sequences were obtained in the sagittal and axial planes. COMPARISON: None FINDINGS: T12-L1: Normal endplates. Normal disc height, hydration and morphology. Normal bilateral facet joints. Normal central canal and bilateral lateral recesses. Normal bilateral intervertebral neural foramina. Normal lumbar lordosis. There is no substantial scoliosis. Normal conus medullaris that terminates at the T12 level. L1-2: Normal endplates. Disc dehydration and mild disc space narrowing. There is a mild, noncompressive spondylotic bar. Normal bilateral facet joints. Normal central canal and bilateral lateral recesses. Normal bilateral intervertebral neural foramina. L2-3: Normal endplates. Normal disc height, hydration and morphology. Normal bilateral facet joints. Normal central canal and bilateral lateral recesses. Normal bilateral intervertebral neural foramina. L3-4: Normal endplates. Disc dehydration and mild disc space narrowing. Normal central canal and bilateral lateral recesses. There is mild foraminal encroachment, greater on the right, due to spurring and mild facet hypertrophy. L4-5: Edematous endplate changes. There is marked disc space narrowing. There is a mild, noncompressive spondylotic bar. There is mild foraminal encroachment, greater on the right, due to spurring. L5-S1: Normal endplates. Normal disc height, hydration and morphology. Normal bilateral facet joints. Normal central canal and bilateral lateral recesses. Normal bilateral intervertebral neural foramina. Normal visualized sacral ala. Normal visualized paraspinous soft tissue structures. MRI/Spine Lumbar (Routine) IMPRESSION: 1. Reactive marrow changes at the L4-5 level. 2. Mild degenerative changes are detailed above. Electronically Signed: Shelby Bowman MD at 23:40 EST Tel , Service support ,
--- OUTSIDE RECORDS SUMMARY | 2018-12-01 14:56 | XMS RPT_ITS ---
:1965 Author Organization OHIP Support Name Relationship Address Phone WC Unavailable [address] + [place] [address] [facility] Unavailable [address] + [place] [address] [facility] Unavailable [address] + [place] [address] [facility] Unavailable [address] + [place] [address] [facility] Unavailable [address] + [place] [address] [facility] Unavailable [address] + [place] [address] [facility] Unavailable [address] + [place] [address] [facility] Unavailable [address] + [place] [address] [facility] Unavailable [address] + [place] [address] [facility] Unavailable [address] + [place] [address] [facility] Unavailable [address] + [place] [address] [facility] Unavailable [address] + [place] [address] [facility] Unavailable [address] + [place] [address] [facility] Unavailable [address] + [place] [address] NO, CONTACT Unavailable Unavailable Unavailable [facility] Unavailable [address] + [place] [address] NO, CONTACT Unavailable Unavailable Unavailable [facility] Unavailable [address] + [place] [address] PETIEKA, DANILO Unavailable [address] + [place] [address] [facility] Unavailable [address] + [place] [address] PETIEKA, DANILO Unavailable [address] + [place] [address] [facility] Unavailable [address] + [place] [address] PETIEKA, DANILO Unavailable [address] + [place] [address] [facility] Unavailable [address] + [place] [address] [facility] Unavailable [address] + [place] [address] [facility] Unavailable [address] + [place] [address] PETIEKA, DANILO Unavailable [address] + [place] [address] [facility] Unavailable [address] + [place] [address] PETIEKA, DANILO Unavailable [address] + [place] [address] [facility] Unavailable [address] + [place] [address] Care Team Providers Name Role Phone Arnel Juarez Attending Unavailable Malys, Leidy Referring Unavailable Angel Jones Attending Unavailable Angel Jones Referring Unavailable Guillermo, Annette NUCLEAR PHYSICS TEACHER-C Attending Unavailable Guillermo, Annette NUCLEAR PHYSICS TEACHER-C Referring Unavailable Malys, Leidy Primary Care Unavailable Arnel Juarez Attending Unavailable Malys, Leidy Referring Unavailable Malys, Leidy Primary Care Unavailable Arnel Juarez Attending Unavailable Arnel Juarez Referring Unavailable Malys, Leidy Primary Care Unavailable Malys, Leidy Referring Unavailable Malys, Leidy Primary Care Unavailable Sesar Pryor Attending Unavailable Arnel Juarez Attending Unavailable Arnel Juarez Referring Unavailable Malys, Leidy Primary Care Unavailable ASSESSMENT, HEALTH RISK Attending Unavailable ASSESSMENT, HEALTH RISK Referring Unavailable Malys, Leidy Primary Care Unavailable Arnel Juarez Attending Unavailable Malys, Leidy Referring Unavailable Malys, Leidy Primary Care Unavailable Malys, Leidy Primary Care Unavailable Sol Shirley Attending Unavailable Angel Jones Attending Unavailable Malys, Leidy Referring Unavailable Aviva Byrne Attending Unavailable Kotsonis, Tico F Admitting Unavailable Kotsonis, Tico F Attending Unavailable Kotsonis, Tico F Referring Unavailable Malys, Leidy Primary Care Unavailable Angel Jones Consulting Unavailable Kotsonis, Tico F Admitting Unavailable Kotsonis, Tico F Attending Unavailable Kotsonis, Tico F Referring Unavailable Malys, Leidy Primary Care Unavailable Angel Jones Consulting Unavailable Kotsonis, Tico F Consulting Unavailable Kotsonis, Tico F Admitting Unavailable Kotsonis, Tico F Attending Unavailable Kotsonis, Tico F Referring Unavailable Malys, Leidy Primary Care Unavailable Angel Jones Consulting Unavailable Kotsonis, Tico F Consulting Unavailable Malys, Leidy Primary Care Unavailable Anuel Franco Attending Unavailable Angel Jones Attending Unavailable Kotsonis, Tico F Referring Unavailable Angel Jones Attending Unavailable Malys, Leidy Primary Care Unavailable Angel Jones Attending Unavailable Angel Jones Referring Unavailable Malys, Leidy Primary Care Unavailable Arnel Juarez Attending Unavailable Chicorelli, Arnel Referring Unavailable Malys, Leidy Primary Care Unavailable Jam Marrero Attending Unavailable Malys, Leidy Primary Care Unavailable PROBLEMS PROBLEMS DATE TYPE CONDITION / CODE ATTENDING STATUS SOURCE 08/27/2018 Unknown R00.2 - Palpitations Angel Jones Active [place] / R00.2(ICD-10) [facility] Hospital Repository 06/15/2018 Unknown R07.9 - Chest pain, Angel Jones Active [place] unspecified / Community R07.9(ICD-10) Hospital Repository 06/15/2018 Unknown F17.200 - Nicotine Angel Jones Active [place] dependence, Community unspecified, Hospital uncomplicated / Repository F17.200(ICD-10) 05/28/2018 Unknown R29.898 - Other [place], Active [place] symptoms and signs [facility] involving the Hospital musculoskeletal Repository system / R29.898(ICD-10) 09/14/2018 Unknown S83.282A - Other tear Sesar Pryor Active [place] of lateral meniscus, [facility] current injury, left Hospital knee, initial Repository encounter / S83.282A(ICD-10) 06/05/2018 Unknown M25.562 - Pain in [place], Active [place] left knee / Arnel [facility] M25.562(ICD-10) Hospital Repository PROCEDURES PROCEDURES No Procedure Records FoundRESULTS RESULTS SPINE LUMBAR Observed: 09/26/2018 Status: F Source: [place] (ROUTINE) 3:47 PM [facility] REPOSITORY [facility] Imaging Services [address] [place] [address] Spine Lumbar (Routine) MR#: [id number] Acct: [id number] Name: DARWIN CULLEN Rep #: [id number] : 1965 F 53 From: Shelby Bowman MD PCP: Leidy Crawford DO Status: REG CLI Study: Spine Lumbar (Routine) Date of Exam: 09/26/18 Exam# [id number] Ordering Dr: Annette Li NUCLEAR PHYSICS TEACHER-C STUDY: MRI LUMBAR SPINE WITHOUT CONTRAST REASON FOR EXAM: Female, 53 years old. Left leg numbness. Right-sided pain and numbness. TECHNIQUE: Standardized fat and water weighted pulse sequences were obtained in the sagittal and axial planes. COMPARISON: None FINDINGS: T12-L1: Normal endplates. Normal disc height, hydration and morphology. Normal bilateral facet joints. Normal central canal and bilateral lateral recesses. Normal bilateral intervertebral neural foramina. Normal lumbar lordosis. There is no substantial scoliosis. Normal conus medullaris that terminates at the T12 level. L1-2: Normal endplates. Disc dehydration and mild disc space narrowing. There is a mild, noncompressive spondylotic bar. Normal bilateral facet joints. Normal central canal and bilateral lateral recesses. Normal bilateral intervertebral neural foramina. L2-3: Normal endplates. Normal disc height, hydration and morphology. Normal bilateral facet joints. Normal central canal and bilateral lateral recesses. Normal bilateral intervertebral neural foramina. L3-4: Normal endplates. Disc dehydration and mild disc space narrowing. Normal central canal and bilateral lateral recesses. There is mild foraminal encroachment, greater on the right, due to spurring and mild facet hypertrophy. L4-5: Edematous endplate changes. There is marked disc space narrowing. There is a mild, noncompressive spondylotic bar. There is mild foraminal encroachment, greater on the right, due to spurring. L5-S1: Normal endplates. Normal disc height, hydration and morphology. Normal bilateral facet joints. Normal central canal and bilateral lateral recesses. Normal bilateral intervertebral neural foramina. Normal visualized sacral ala. Normal visualized paraspinous soft tissue structures. MRI/Spine Lumbar (Routine) IMPRESSION: 1. Reactive marrow changes at the L4-5 level. 2. Mild degenerative changes are detailed above. Electronically Signed: Shelby Bowman MD at 23:40 EST Tel , Service support , CC: MARLENE Li; Leidy Crawford DO Exchange Operator: Signed SPINE THORACIC Observed: 09/26/2018 Status: F Source: [place] (ROUTINE) 3:[address] [facility] REPOSITORY [facility] Imaging Services [address] [place] [address] Spine Thoracic (Routine) MR#: [id number] Acct: [id number] Name: DARWIN CULLEN Rep #: [id number] : 1965 F 53 From: Shelby Bowman MD PCP: Leidy Crawford DO Status: REG CLI Study: Spine Thoracic (Routine) Date of Exam: 09/26/18 Exam# [id number] Ordering Dr: Annette Li NUCLEAR PHYSICS TEACHER-C STUDY: MRI THORACIC SPINE WITHOUT CONTRAST REASON FOR EXAM: Female, 53 years old. Add normal nerve conduction study. Left leg weakness. TECHNIQUE: Standardized fat and water weighted pulse sequences were obtained in the sagittal and axial planes. COMPARISON: None. FINDINGS: Normal kyphosis of the thoracic spine. There is no substantial scoliosis. T1-2, T2-3, T3-4, T4-5, T5-6, T6-7, T7-8, T8-9, T9-10, T10- 11, T11-12: Normal endplates. Normal disc hydration, heights and morphology of the corresponding intervertebral discs. Minimal noncompressive spondylotic changes are noted at several levels. Normal central canal and intervertebral neural foramina at the corresponding levels. Normal visualized thoracic cord. Normal conus medullaris that terminates at the T12 level. The soft tissue structures are unremarkable. MRI/Spine Thoracic (Routine) IMPRESSION: Minimal, noncompressive spondylotic changes, otherwise negative study. Electronically Signed: Shelby Bowman MD at 23:52 EST Tel , Service support , CC: MARLENE Li; Leidy Crawford DO Exchange Operator: Signed ORTHOPEDIC VISIT Observed: 08/23/2018 Status: F Source: [place] REPORT 9:[address] [facility] REPOSITORY [facility] [address] [place] [address] OFFICE VISIT Date of Service: 08/23/18 MR#: [id number] Acct: [id number] Name: DARWIN CULLEN Rep #: [id number] : 1965 Provider: Arnel Juarez DO Age/Sex: 53/F Location: [facility] Status: Signed Intake Intake Visit Reasons: LEFT LEG Is patient in pain?: Yes Allergies oxycodone HCl [From Percocet] Allergy (Severe, Verified 08/23/18 08:43) Anaphylaxis diltiazem Adverse Reaction (Intermediate, Verified 08/23/18 08:43) Leg swelling gabapentin [From Horizant] Adverse Reaction (Intermediate, Verified 08/23/18 08:43) Edema Medications Albuterol Inhaler [Ventolin Hfa] 1 - 2 puff INHALATION Q4H PRN PRN 05/01/14 [History Confirmed 06/15/18] Ibuprofen [Motrin] 200 mg PO Q6H PRN PRN 03/22/17 [History Confirmed 06/15/18] Aspirin [Aspirin, Baby] 81 mg PO DAILY@0800 #30 tab.chew 06/14/18 [Rx Confirmed 06/15/18] Meloxicam [Mobic] 13 mg PO DAILY 06/14/18 [History Confirmed 06/15/18] Ondansetron [Zofran Odt] 4 mg PO Q8H PRN PRN #10 tab 06/14/18 [Rx Confirmed 06/15/18] atorvastatin 20 mg tablet 20 mg PO DAILY #30 tab 06/15/18 [Rx Confirmed 06/15/18] hydrochlorothiazide 25 mg tablet 12.5 mg PO PRN PRN 06/15/18 [History Confirmed 06/15/18] propranolol ER 80 mg capsule,24 hr,extended release 80 mg PO DAILY #30 cap 06/15/18 [Rx Confirmed 06/15/18] digoxin 250 mcg tablet 0.25 mg PO DAILY #30 tab 07/19/18 [Rx] potassium chloride ER 10 mEq tablet,extended release 10 meq PO DAILY #30 tab 07/19/18 [Rx] PFSH Medical History Family history of ischemic heart disease (Chronic) Hyperlipidemia (Acute) History of eating disorder (Chronic) History of insomnia (Chronic) Tobacco dependence (Chronic) Chest pain (Acute) Migraine (Chronic) Rheumatoid arthritis (Chronic) Surgical History History of left heart catheterization (Chronic 06/15/18) History of back surgery (Acute) History of section (Acute) History of cholecystectomy (Acute) History of foot surgery (Acute) History of rotator cuff surgery (Acute) Hx of left knee surgery (Acute) history of coccyx removal (Acute) history of wrist surgery (Acute) 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 (Acute) History of lumpectomy of right breast (Chronic) Family History Mother Breast cancer Grandmother Breast cancer Other Heart disease Hypertension Isela Gehrigs disease Myocardial infarction Social History Smoking Status: Current every day smoker alcohol intake: never substance use type: does not use HPI LEFT LEG: Details: DARWIN CULLEN is a 53 year old F here today for a followup on her left leg. Patient had an EMG which is here for review. She states that she thought she was improving for a week and then her pain returned. Patient states that she has pain and weakness over her lateral calf and into her knee. She notes that she has weakness at the end of the day where she has to use her arms to get her leg into her calf. She notes her pain increases as she flexes her knee. She notes that she has a different sensation over her lateral calf at times. ROS Const Reports system reviewed and no additional complaints, except as docu Eyes Reports system reviewed and no additional complaints, except as docu ENT Reports system reviewed and no additional complaints, except as docu Card Reports system reviewed and no additional complaints, except as docu Resp Reports system reviewed and no additional complaints, except as docu GI Reports system reviewed and no additional complaints, except as docu Reports system reviewed and no additional complaints, except as docu Musc Reports joint pain, Reports muscle weakness Skin/Breast Reports system reviewed and no additional complaints, except as docu Neuro Yes system reviewed and no additional complaints, except as docu Psych Reports system reviewed and no additional complaints, except as docu Endo Reports system reviewed and no additional complaints, except as docu Ortho Exam Left Knee Knee ROM: Yes ROM-Extension -20 to 0, Yes ROM-Passive Extension -10 to 0, Yes ROM-Flexion 0-140 Stability: NML: Anterior Drawer, NML: Heather, NML: Posterior Drawer, NML: Valgus 0, NML: Valgus 30, NML: Varus 0, NML: Varus 30, NML: Dial 90, NML: Dial 30 Apprehension with Lateral Translation: No Left Ankle Skin: Yes CDI; no Soft Tissue Swelling Exam: No Soft tissue swelling ROM: No pain with ROM Motor: Ankle Dorsiflextion: 5, Ankle Plantar Flexion: 5, Ankle Eversion: 4, Ankle Inversion: 4 Sensation: Superficial Peroneal Nerve: D, Sural Nerve: D Assessment AND Plan Problems 1. Weakness of left lower extremity R29.898 2. 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 Instructed to follow up with neurologist, she is already established with one so encouraged to call and schedule an appointment as well as starting a B vitamin. No hip weakness noted today. Follow up with neuro or sooner if pain, swelling, numbness or associated symptoms, or concerns develop. All questions answered. Patient in agreement of plan. 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 REPOSITORY [facility] Pulmonary Services/Neurology [address] [facility] [place] [address] MR#: [id number] Acct: [id number] Name: DARWIN CULLEN Rep #: [id number] : 1965 53 From: vEans Pearl MD Referring Dr: Arnel Juarez DO Status: REG CLI Ordering Dr: Date: Location: [facility] Sex: F C NCS and/or EMG Patient Report Ordering Doctor: Arnel Juarez DATE OF SERVICE: 08/15/18 Darwin Cullen is a 53-year-old female who presents for electrodiagnostic testing of the left lower limb. She reports sharp pain in the left lateral lower leg with intermittent numbness. Electrodiagnostic findings left common peroneal nerve demonstrates prolonged distal latency with reduced amplitude and reduced conduction velocity. There is no significant drop in conduction across the fibular head. Normal left tibial motor response. Prolonged left sural latency is noted. Normal left superficial peroneal and left medial plantar response. Needle EMG testing showed decreased recruitment in left tibialis anterior and left peroneus longus. Electrodiagnostic impression: This is an abnormal study in the left lower limb 1. 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 There is some evidence of axonal loss. There is no evidence of conduction block at the fibular head. Would consider repeat study in 6-12 months to evaluate for improvement. 2. 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 If there are any further questions, please do not hesitate to contact me 08/15/18 1255 <Electronically signed by Evans Pearl MD> Date Evans Pearl MD CC: Arnel Juarez DO; Evans Pearl; Leidy Crawford DO Date Dictated: 08/15/18 1504 Date Transcribed: 08/15/181503 Exchange Operator: INA Signed BASIC METABOLIC Collected: 08/14/2018 Status: F Source: [place] PROFILE (BMP) 11:[address] [facility] REPOSITORY Order Comment: CALL RESULTS TO DR MARRERO IN THE ER IF ABNORMAL TYPE CODE TESTS RESULT OUT OF RANGE REFERENCE UNITS LAB L501.0100 74-106 mg/dL Normal GLU 102 Result Comment: Fasting Glucose result from 100 to 125 mg/dL suggests IMPAIRED HOMEOSTASIS per A.D.A. criteria. Please note revised GLUCOSE reference range effective 2017. LAB L501.1000 7-18 mg/dL Normal BUN 14 LAB L501.1100 0.55-1.02 mg/dL Normal CREAT,SERUM 0.74 Result Comment: The validity of the calculated GFR AND GFRAA in patients over 70 years has not been determined. Clinical correlation is essential. LAB L501.1110 >60 mL/min Normal EST GFR 87 Result Comment: Non- GFR Calc LAB L501.1115 >60 mL/min Normal EST GFR - AA 105 Result Comment: GFR Calc LAB L501.1300 10-20 RATIO Normal BUN/CRE 18.8 LAB L501.2200 8.5-10.1 mg/dL CA Normal 8.5 LAB L501.5300 136-145 mmol/L NA Normal 142 LAB L501.5600 3.5-5.1 mmol/L K Normal 3.9 LAB L501.5900 98-107 mmol/L CL Normal 107 LAB L501.6100 21.0-32.0 mmol/L Normal CO2 25.0 LAB L501.6200 5-15 Normal GAP 10 Performed By: #### L500.2500 #### [facility] [address] [place], [address] DIGOXIN LEVEL Collected: 08/14/2018 Status: F Source: [place] 11:[address] [facility] REPOSITORY Order Comment: CALL RESULTS TO DR MARRERO IN THE ER IF ABNORMAL TYPE CODE TESTS RESULT OUT OF RANGE REFERENCE UNITS LAB L501.7510 0.80-2.00 ng/mL Normal DIG 1.06 Performed By: #### L501.7510 #### [facility] [address] [place], [address] 12 LEAD ELECTROCARDIOGRAM Observed: 07/10/2018 Status: F Source: [place] 8:[address] [facility] REPOSITORY [facility] Cardiovascular Services [address] [place] [address] 12 Lead EKG 07/05/18 1633 MR#: [id number] Acct: [id number] Name: DARWIN CULLEN Rep #: [id number] : 1965 53 From: Angel Jones MD Attending Dr: Status: DEP ER Ordering Dr: Anuel Franco MD Date: 07/05/18 Location: ED Sex: F C Admitted: Test Reason : Blood Pressure : / mmHG Vent. Rate : 095 BPM Atrial Rate : 095 BPM P-R Int : 140 ms QRS Dur : 072 ms QT Int : 348 ms P-R-T Axes : 044 063 023 degrees QTc Int : 437 ms Normal sinus rhythm Normal ECG Confirmed by ANGEL JONES ([id number]), news assignment editor GILES VILLARREAL ([id number]) on 07/10/2018 8:45:31 AM Referred By: LUCIA Confirmed By:ANGEL JONES 07/10/18 0845 Date Angel Jones MD CC: Anuel Franco MD; Leidy Crawford DO Signed DISCHARGE INSTRUCTION Observed: 07/05/2018 Status: F Source: [place] 7:[address] [facility] REPOSITORY [facility] Medical Records Department [address] [address] Discharge Instruction 07/05/181917 MR#: [id number] Acct: [id number] Name: DARWIN CULLEN Rep #: [id number] : 1965 53 From: Anuel Fracno MD PCP: Leidy Crawford DO Status: REG ER ED Disposition - Plan for ED Patient: Chief Complaint: Palpitations Instructions: ED Palpitations Prescriptions: Diltiazem CD [Cardizem CD] 120 mg PO DAILY #14 cap Referrals: Leidy Crawford DO [Primary Care Provider] - Angel Jones MD [STAFF PHYSICIAN] - What to do if you have Problems For any increased pain, shortness of breath, bleeding, nausea or vomiting, chest pain, or any unexpected problems, contact your Primary Care Provider. Call [facility] ([phone]) or report to the closest Emergency Room. Call 911 if necessary. 07/05/181920 <Electronically signed by Anuel Franco MD> Date Anuel Franco MD Cosigner Signature (If Indicated): Date CC: Leidy Crawford DO EMERGENCY DEPARTMENT Observed: 07/05/2018 Status: F Source: [place] SUMMARY 7:[address] [facility] REPOSITORY [facility] Medical Records Department [address] [address] Emergency Department Summary 07/05/181915 MR#: [id number] Acct: [id number] Name: YUNG CULLENARNEL Kim Rep #: [id number] : 1965 53 From: Anuel Franco MD PCP: Leidy Crawford DO Status: REG ER - ER Visit Summary Date of Service: 07/05/18 Chief Complaint: Palpitations History of Present Illness: The patient is a 53 F who presents with palpitations. This began about an hour ago. It waxes and wanes. It is associated with shortness of breath. She also reports some recent productive cough. She reports nausea without vomiting. She has been undergoing a workup for this including laboratory studies and a recent negative cardiac catheterization. She was put on propanolol but had adverse effects and syncope so this was recently discontinued. Physical Examination: Initial heart rate 124 respiratory rate 22 vitals otherwise unremarkable Moist mucous members Heart regular rhythm tachycardia Lungs are clear Abdomen soft Patient does have some peripheral edema which is symmetric and pitting Alert Test Results: EKG shows normal sinus rhythm at a rate of 95. Chest x-ray is normal. Labs notable for potassium 3.2. Troponin negative. D-dimer negative. TSH normal. Emergency Department Course and Treatment: Patient was given IV fluids and Zofran. On reevaluation she feels better except for complaining of fatigue. I did speak to her community development technician Dr. Jones. We will arrange for the patient to have an event monitor. Dr. Jones also recommended trying Cardizem given that the propanolol was not well tolerated. Patient understands to return for new or worsening symptoms. She will follow-up as an outpatient. She was discharged. Treatment Plan: [] Disposition: Discharge Impression: Palpitations Shortness of breath This note was generated with [employer] dictation software. It may contain incorrect words, spelling, and punctuation that were not noted in review of the chart prior to signing ED Disposition - Plan for ED Patient: Chief Complaint: Palpitations Referrals: Leidy Crawford, [Primary Care Provider] - What to do if you have Problems For any increased pain, shortness of breath, bleeding, nausea or vomiting, chest pain, or any unexpected problems, contact your Primary Care Provider. Call [facility] ([phone]) or report to the closest Emergency Room. Call 911 if necessary. 07/05/18 191 <Electronically signed by Anuel Franco MD> Date Anuel Franco MD Cosigner Signature (If Indicated): Date CC: Leidy Crawford DO CBC W/DIFF, AUTOMATED Collected: 07/05/2018 Status: F Source: [place] 5:[address] [facility] REPOSITORY TYPE CODE TESTS RESULT OUT OF RANGE REFERENCE UNITS LAB L100.1000 4.4-11.0 K/mm3 Normal WBC 8.3 LAB L100.1200 4.2-5.4 M/mm3 Normal RBC 4.48 LAB L100.1300 12.0-15.0 g/dl Normal HGB 14.4 LAB L100.1400 37-47 % Normal HCT 42.5 LAB L100.1500 81-99 fL Normal MCV 94.9 LAB L100.1600 27.0-32.0 pg High MCH 32.1 LAB L100.1700 32-36 g/gl Normal MCHC 33.9 LAB L100.1810 11.6-14.6 % Normal RDW CV 12.1 LAB L100.1820 35.1-43.9 fl Normal RDW SD 41.1 LAB L100.1900 150-450 K/mm3 Normal PLT 366 LAB L100.2000 6.2-12.0 fl Normal MPV 9.2 LAB L100.2100 47-70 % High NEUT% 88.2 LAB L100.2200 19-41 % Low LY% 10.5 LAB L100.2300 0-10 % Normal MONO% 1.0 LAB L100.2400 0-5 % Normal EO% 0.0 LAB L100.2500 0-1 % Normal BASO% 0.1 LAB L100.2550 0.0-0.9 % Normal IM GRAN % 0.200 Result Comment: IG% - Immature Granulocytes (promyelocytes, myelocytes and metamyelocytes) > 1% indicates that a LEFT SHIFT is Present. LAB L100.2620 2.0-7.7 X10 3/uL Normal Absolute Neut 7.3 LAB L100.2720 0.83-4.51 X10 3/ul Normal Absolute Lymph 0.87 Performed By: #### L100.0100 #### [facility] [address] [place], [place], [address] BASIC METABOLIC Collected: 07/05/2018 Status: F Source: [place] PROFILE (BMP) 5:[address] [facility] REPOSITORY TYPE CODE TESTS RESULT OUT OF RANGE REFERENCE UNITS LAB L501.0100 74-106 mg/dL High GLU 137 Result Comment: Fasting Glucose result greater than or equal to 126 mg/dL suggests DIABETES MELLITUS per A.D.A. criteria. Please note revised GLUCOSE reference range effective 2017. LAB L501.1000 7-18 mg/dL Normal BUN 9 LAB L501.1100 0.55-1.02 mg/dL Normal CREAT,SERUM 0.84 Result Comment: The validity of the calculated GFR AND GFRAA in patients over 70 years has not been determined. Clinical correlation is essential. LAB L501.1110 >60 mL/min Normal EST GFR 75 Result Comment: Non- GFR Calc LAB L501.1115 >60 mL/min Normal EST GFR - AA 91 Result Comment: GFR Calc LAB L501.1255 ml/min Normal Estimated CRCL 72.51 LAB L501.1300 10-20 RATIO Normal BUN/CRE 10.7 LAB L501.2200 8.5-10 mg/dL Normal .1 CA 9.4 LAB L501.5300 136-14 mmol/L Normal 5 NA 138 LAB L501.5600 3.5-5. mmol/L Low 1 K 3.2 LAB L501.5900 98-107 mmol/L Normal CL 105 LAB L501.6100 21.0-3 mmol/L Normal 2.0 CO2 24.0 LAB L501.6200 5-15 Normal GAP 9 Performed By: #### L500.2500, L501.4010, L501.9520 #### [facility] [address] [place], [place], [address] TROPONIN-I Collected: 07/05/2018 Status: F Source: JACKMAN 5:[address] [facility] REPOSITORY TYPE CODE TESTS RESULT OUT OF RANGE REFERENCE UNITS LAB L501.4010 <0.045 ng/mL Normal < 0.015 TROPONIN-I Result Comment: TROPONIN-I EXPECTED VALUES <0.045 Negative 0.045 - 0.590 Consistent with Cardiac Damage > OR = 0.600 Critical Value Not every elevated troponin is indicative of VA. These values should be used with clinical judgement in examining the patient's clinical picture for diagnosis. To establish a diagnosis of VA versus myocardial injury, there must be a demonstrated rise and/or fall in the troponin values, in addition to ischemic symptoms, EKG changes, new regional wall motion abnormality, and/or angiographical evidence. PLEASE NOTE: REFERENCE RANGES EDITED 18 Performed By: #### L500.2500, L501.4010, L501.9520 #### [facility] [address] [facility] [facility] [place], [place], [id number] THYROID STIM HORMONE Collected: 07/05/2018 Status: F Source: NARCISA (TSH) 5:[address] [facility] REPOSITORY TYPE CODE TESTS RESULT OUT OF RANGE REFERENCE UNITS LAB L501.9520 0.358-3.74 uIU/mL Normal TSH 0.49 Performed By: #### L500.2500, L501.4010, L501.9520 #### [facility] [address] [facility] [place], [place], [address] D-DIMER QUANTITATIVE Collected: 07/05/2018 Status: F Source: NARCISA (DVT/PE) 5:[address] [facility] REPOSITORY TYPE CODE TESTS RESULT OUT OF RANGE REFERENCE UNITS LAB L300.8000 0.27-0.49 FEU/ug/m Low D-DIMER < 0.27 QUANT Result Comment: NORMAL D-Dimer level (<0.50) indicates no DVT or PE. Performed By: #### L300.8000 #### [facility] [address] [facility] [place], [place], [address] CHEST 1 VIEW Observed: 07/05/2018 Status: F Source: NARCISA (PORTABLE) 4:[address] [facility] REPOSITORY [facility] Imaging Services [address] [place] [address] Chest 1 View (Portable) MR#: [id number] Acct: [id number] Name: DARWIN CULLEN Rep #: [id number] : 1965 F 53 From: Aidan Garcia MD PCP: Leidy Crawford DO Status: PRE ER Study: Chest 1 View (Portable) Date of Exam: 07/05/18 Exam# [id number] Ordering Dr: Anuel Franco MD STUDY: X-RAY CHEST REASON FOR EXAM: Female, 53 years old. Palpitations TECHNIQUE: Single AP portable view of the chest. COMPARISON: 06/14/2018 FINDINGS: EKG leads overlie the chest The lungs are clear and expanded. There is no demonstrated pleural abnormality. Normal size heart. Normal mediastinum and mu. Normal visualized pulmonary arteries. Normal visualized aortic arch and descending thoracic aorta. Normal visualized thoracic spine. Normal visualized ribs, clavicles, and shoulders. There is no demonstrated abnormality of the visualized soft tissue structures of the upper abdomen. RAD/Chest 1 View (Portable) IMPRESSION: Normal x-ray examination of the chest. Electronically Signed: Pedro Luis Garcia MD at 17:06 EDT , Service support , CC: Anuel Franco MD; Leidy Crawford DO Exchange Operator: Signed 12 LEAD ELECTROCARDIOGRAM Observed: 06/20/2018 Status: F Source: JACKMAN 3:[address] [facility] REPOSITORY [facility] Cardiovascular Services [address] [place] [address] 12 Lead EKG 06/15/18 1319 MR#: [id number] Acct: [id number] Name: DARWIN CULLEN Rep #: [id number] : 1965 53 From: Kam Fonseca MD Attending Dr: Tico Howard MD Status: DIS MARCELINA Ordering Dr: Tico Howard MD Date: 06/15/18 Location: [facility] Sex: F C Admitted: 06/15/18 Test Reason : Blood Pressure : / mmHG Vent. Rate : 068 BPM Atrial Rate : 068 BPM P-R Int : 146 ms QRS Dur : 074 ms QT Int : 400 ms P-R-T Axes : 036 054 032 degrees QTc Int : 425 ms Normal sinus rhythm Normal ECG When compared with ECG of 14-JUN-2018 17:02, MANUAL COMPARISON REQUIRED, DATA IS UNCONFIRMED Confirmed by KAM FONSECA MD ([id number]), news assignment editor GILES VILLARREAL ([id number]) on 06/20/2018 3:40:27 PM Referred By: Tico Howard Confirmed By:KAM FONSECA MD 06/20/18 1540 Date Kam Fonseca MD CC: Leidy Crawford DO; Tico Howard MD Signed CARDIOLOGY VISIT Observed: 06/20/2018 Status: F Source: JACK[place] REPORT 1:[address] [facility] REPOSITORY [facility] [address] [place] [address] OFFICE VISIT Date of Service: MR#: [id number] Acct: [id number] Name: DARWIN CULLEN Rep #: [id number] : 1965 Provider: Aviva Byrne Age/Sex: 53/F Location[place] [facility] Status: Signed HPI HPI Details: DARWIN CULLEN, is a 53 F who presents to the office today for Intake Intake Visit Reasons: Amb Documentation Allergies oxycodone HCl [From Percocet] Allergy (Severe, Verified 06/15/18 11:47) Anaphylaxis gabapentin [From Horizant] Adverse Reaction (Intermediate, Verified 06/15/18 11:47) Edema Medications Albuterol Inhaler [Ventolin Hfa] 1 - 2 puff INHALATION Q4H PRN PRN 05/01/14 [History Confirmed 06/15/18] Ibuprofen [Motrin] 200 mg PO Q6H PRN PRN 03/22/17 [History Confirmed 06/15/18] Aspirin [Aspirin, Baby] 81 mg PO DAILY@0800 #30 tab.chew 06/14/18 [Rx Confirmed 06/15/18] Meloxicam [Mobic] 13 mg PO DAILY 06/14/18 [History Confirmed 06/15/18] Ondansetron [Zofran Odt] 4 mg PO Q8H PRN PRN #10 tab 06/14/18 [Rx Confirmed 06/15/18] atorvastatin 20 mg tablet 20 mg PO DAILY #30 tab 06/15/18 [Rx Confirmed 06/15/18] hydrochlorothiazide 25 mg tablet 12.5 mg PO PRN PRN 06/15/18 [History Confirmed 06/15/18] propranolol ER 80 mg capsule,24 hr,extended release 80 mg PO DAILY #30 cap 06/15/18 [Rx Confirmed 06/15/18] PFSH Medical History Family history of ischemic heart disease (Chronic) Hyperlipidemia (Acute) History of eating disorder (Chronic) History of insomnia (Chronic) Tobacco dependence (Chronic) Chest pain (Acute) Migraine (Chronic) Rheumatoid arthritis (Chronic) Surgical History History of left heart catheterization (Chronic 06/15/18) History of back surgery (Acute) History of section (Acute) History of cholecystectomy (Acute) History of foot surgery (Acute) History of rotator cuff surgery (Acute) Hx of left knee surgery (Acute) history of coccyx removal (Acute) history of wrist surgery (Acute) 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 (Acute) History of lumpectomy of right breast (Chronic) Family History Mother Breast cancer Grandmother Breast cancer Other Heart disease Hypertension Isela Gehrigs disease Myocardial infarction ROS Const Const: Negative for fatigue, weakness, body ache, fever(s), headache(s), chills, frequent falls, night sweats, daytime sleepiness, difficulty sleeping, excessive sweating, weight gain, weight loss, increased appetite, poor appetite, anorexia or other Eyes Eyes: Negative for blind spots, loss of peripheral vision, transient loss of vision, blurry vision, change in vision, double vision, floaters, tunnel vision or other ENT ENT: Negative for headache(s), dizziness, hearing loss, tinnitus, Nosebleed/epistaxis, balance problems, post nasal drip, lip swelling, tongue swelling, bleeding gums, hoarseness, neck pain, dry mouth or other Cardio Chest Pain: No Resp Respiratory: Negative for SOB with activity, SOB at rest, SOB orthopnea\SOB lying down, Coughing up blood/hemoptysis, chest congestion, pain on inspiration, snoring, stridor, wheezing, crackles, paroxysmal nocturnal dyspnea or other GI GI: Negative nausea, vomiting, heartburn, constipation, belching, bloating, cramping, vomiting blood/hematemesis, bright, red blood in stools, black,tarry stools, loose stools, Difficulty Swallowing or other : Negative for hematuria, frequent nighttime urination/ nocturia, erectile dysfunction or abnormal vaginal bleeding Musc Musc: Negative for balance problems, muscle aches/ myalgia, muscle weakness or joint pain Skin Skin: Negative redness, non-healing lesions, rash, unusual bruising, skin ulcer, wounds, jaundice or other Neuro Neuro: Negative for weakness, headache(s), frequent falls, blurry vision, double vision, dizziness, lightheadedness, near syncope, syncope, orthostatic symptoms, confusion, memory loss, restless legs, vertigo, seizures, lack of coordination or other [place] Hematologic/Lymphatic: Negative for easy bleeding, easy bruising, enlarged lymph nodes or other Endo Endo: Negative for fatigue, excessive sweating, cold intolerance, heat intolerance, flushing, increased thirst/drinking, increased hunger, hair loss, hair growth or other Psych Psych: Negative for anxiety, depression, thoughts of harming anyone, thoughts of harming yourself, visual hallucinations, panic attacks or audible hallucinations Allergy Allergy/Immunology: Negative for lip swelling, Negative for tongue swelling, Negative for rash, Negative for throat swelling, Negative for hives Coding Level of Care Code Off vis,new,level 4 Coding Level of Care Code Off vis,new,level 4 06/20/18 1338 <Electronically signed by Angel Jones MD> Date Angel Jones MD Cosigner Signature: Date (if applicable) CC: Leidy Crawford DO 12 LEAD ELECTROCARDIOGRAM Observed: 06/18/2018 Status: F Source: NARCISA 2:38 PM [facility] Cardiovascular Services [address] [place] [address] 12 Lead EKG 06/14/18 1702 MR#: [id number] Acct: [id number] Name: DARWIN CULLEN Rep #: [id number] : 1965 53 From: Kam Fonseca MD Attending Dr: Status: DEP ER Ordering Dr: Sol Shirley MD Date: 06/14/18 Location: ED Sex: F C Admitted: Test Reason : CHEST PAIN Blood Pressure : / mmHG Vent. Rate : 058 BPM Atrial Rate : 058 BPM P-R Int : 160 ms QRS Dur : 070 ms QT Int : 404 ms P-R-T Axes : 045 056 036 degrees QTc Int : 396 ms Sinus bradycardia Otherwise normal ECG Confirmed by REAL VAZQUEZ, KAM ([id number]), news assignment editor GILES VILLARREAL ([id number]) on 06/18/2018 2:38:15 PM Referred By: PATRICE/ALISSA Confirmed By:KAM FONSECA MD 06/18/18 1438 Date Kam Fonseca MD CC: Sol Shirley MD; Leidy Crawford DO Signed DISCHARGE SUMMARY Observed: 06/16/2018 Status: F Source: NARCISA 7:53 AM [facility] Medical Records Department [address] [place] [place] [address] Discharge Summary 06/16/18 0748 MR#: [id number] Acct: [id number] Name: DARWIN CULLEN Rep #: [id number] : 1965 53 From: Tico Howard MD PCP: Leidy Crawford DO Status: ADM MARCELINA Y Location: [place] [address] Discharge Date and Diagnosis Date of Admission: 06/15/18 Date of Discharge: 06/16/18 - Secondary Discharge Diagnosis Chronic Problems (Last Updated 06/15/18 @ 17:05 by Aviva Byrne) Family history of ischemic heart disease (Chronic) History of left heart catheterization (Chronic 06/15/18) Per Dr. 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 She had a work up in the ER with a negative EKG, normal troponin. She was loaded with aspirin and plavix, but she refused to stay since her work-up was essentially negative. She went home and felt ok, this morning she was feeding her animals and started having the pain again. She was called by the cardiologists office and asked to come in for a stress test then an appointments, however it was decided to proceed with cath, so she was admitted since there were no outpatient beds available. She denies any SOB, dizziness, lightheadedness or fainting. She states that the pain occurs both at rest and with exertion Vital Signs - 24 hr 06/16/18 07:31 62 06/16/18 03:04 57 L 06/16/18 02:33 97.8 F 69 12 91/45 L 96 General: Alert, Oriented x3, Cooperative, No apparent distress HEENT: Atraumatic, PERRLA, EOMI, Normocephalic Oral: Moist Mucosa Neck: Supple, No JVD Lungs: Clear to auscultation, Normal air movement, No rhonchi, No wheeze, No rales Cardiovascular: Regular rate, Regular Rhythm, Normal S1, Normal S2, No murmurs Abdomen: Soft, Non Tender, Non-Distended, No Hepato-splenomegaly Extremities: No edema, Capillary Refill Less than 3 Seconds Skin: No rashes, No breakdown Musculoskeletal: No Tenderness to Palpation of Joints or Extremities Neurological: Neuro grossly intact, Sensory exam intact to light touch and pain Psych/Mental Status: Normal Affect, Appropriate Hospital Course: 1. Chest Pain - She was directly admitted for cardiac cath yesterday given her chest pain, tobacco use, obesity, and extensive family history. Her EKG yesterday and the day before in the ER were non-ischemic and the troponins were both negative. The Cardiac cath was clean and no interventions were needed. Given her age, smoking, and family risk factors, she was started on lipitor at discharge as well as propranolol. Post cath, she did well and the has minimal to no pain at the incision. Discharge today with outpatient follow- up with her PCP and cardiology. Discharge Activity: Return to Normal Activity Call your doctor if your incision/area has: Sudden Increased Bleeding, Increased Pain/ Swelling, Increased Redness, Foul Smelling Discharge Call your doctor if you observe: Fever of 101 or Higher, Fainting spells, Chest pain, Increased palpitations (irregular heartbeat) Home Medications: Medications to take at Discharge Albuterol Inhaler [Ventolin Hfa] 1 - 2 puff INHALATION Q4H PRN PRN 05/01/14 Ibuprofen [Motrin] 200 mg PO Q6H PRN PRN 03/22/17 Aspirin [Aspirin, Baby] 81 mg PO DAILY@0800 #30 tab.chew 06/14/18 Meloxicam [Mobic] 13 mg PO DAILY 06/14/18 Ondansetron [Zofran Odt] 4 mg PO Q8H PRN PRN #10 tab 06/14/18 atorvastatin 20 mg tablet 20 mg PO DAILY #30 tab 06/15/18 hydrochlorothiazide 25 mg tablet 12.5 mg PO PRN PRN 06/15/18 propranolol ER 80 mg capsule,24 hr,extended release 80 mg PO DAILY #30 cap 06/15/18 Primary Care Physician: Leidy Crawford DO [Primary Care Provider] - Please Follow Up With: Angel Jones MD When: Call the office Disposition: Home Minutes spent on discharge:: 35 Patient Condition:: Good Medical Necessity - Tobacco Use Smoking Status: Current every day smoker Meaningful Use Info Meaningful Use Diagnoses (Choose all that apply): None applicable Code Visit OBSV E AND M: 73825 Observation care discharge 06/16/18 1216 <Electronically signed by Tico Howard MD> Date Tico Howard MD Cosigner Signature (if applicable): Date CC: Leidy Crawford DO; Tico Howard MD Signed DISCHARGE INSTRUCTION Observed: 06/16/2018 Status: F Source: NARCISA 7:[address] [facility] REPOSITORY [facility] Medical Records Department [address] [address] Instructions for Home/Discharge Instructions 06/16/18 0746 MR#: [id number] Acct: [id number] Name: DARWIN CULLEN Rep #: [id number] : 1965 53 From: Tcio Howard MD PCP: Leidy Crawford DO Status: ADM MARCELINA - Discharge Diagnoses Current Active Problems: Current Active and Chronic Problems (Last Updated 06/15/18 @ 17:05 by Aviva Byrne) History of eating disorder (Chronic) History of insomnia (Chronic) You will use the following diet at home:: Cardiac Your food should be the consistency of: Regular Your liquids should be the consistency of: Regular/Thin Discharge Activity: Return to Normal Activity Call your doctor if your incision/area has: Sudden Increased Bleeding, Increased Pain/ Swelling, Increased Redness, Foul Smelling Discharge Call your doctor if you observe: Fever of 101 or Higher, Fainting spells, Chest pain, Increased palpitations (irregular heartbeat) Allergies/Adverse Reactions: Allergies oxycodone HCl [From Percocet] Allergy (Severe, Verified 06/15/18 11:47) Anaphylaxis gabapentin [From Horizant] Adverse Reaction (Intermediate, Verified 06/15/18 11:47) Edema Medications to take at Discharge Albuterol Inhaler [Ventolin Hfa] 1 - 2 puff INHALATION Q4H PRN PRN 05/01/14 Ibuprofen [Motrin] 200 mg PO Q6H PRN PRN 07/12/17 Aspirin [Aspirin, Baby] 81 mg PO DAILY@0800 #30 tab.chew 06/14/18 Meloxicam [Mobic] 13 mg PO DAILY 06/14/18 Ondansetron [Zofran Odt] 4 mg PO Q8H PRN PRN #10 tab 06/14/18 atorvastatin 20 mg tablet 20 mg PO DAILY #30 tab 06/15/18 hydrochlorothiazide 25 mg tablet 12.5 mg PO PRN PRN 06/15/18 propranolol ER 80 mg capsule,24 hr,extended release 80 mg PO DAILY #30 cap 06/15/18 Primary Care Physician: Leidy Crawford DO [Primary Care Provider] - Test Results: Test results from this visit will be discussed in further detail at your follow-up appointment, if applicable. Please Follow Up With: Angel Jones MD When: Call the office 06/16/18 9412 <Electronically signed by Tico Howard MD> Date Tico Howard MD CC: Angel Jones MD; Leidy Crawford DO HISTORY AND PHYSICAL Observed: 06/15/2018 Status: F Source: JACKMAN EXAM 5:29 PM [facility] Medical Records Department [address] [place] [address] History and Physical 06/15/18 1718 MR#: [id number] Acct: [id number] Name: BANDARDARWIN M Rep #: [id number] : 1965 53 From: Tico Howard MD PCP: Leidy Crawford DO Status: ADM MARCELINA Y Location: [place] [address] Problem List (1) Hyperlipidemia Status: Acute (2) History of insomnia Status: Chronic (3) Tobacco dependence Status: Chronic (4) Chest pain Status: Acute (5) Migraine Status: Chronic (6) Rheumatoid arthritis Status: Chronic History of Present Illness Date of Admission: 06/15/18 Chief Complaint: Chest Pain The patient is a 53 year old F with a PMH as above who 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 She had a work up in the ER with a negative EKG, normal troponin. She was loaded with aspirin and plavix, but she refused to stay since her work-up was essentially negative. She went home and felt ok, this morning she was feeding her animals and started having the pain again. She was called by the cardiologists office and asked to come in for a stress test then an appointments, however it was decided to proceed with cath, so she was admitted since there were no outpatient beds available. She denies any SOB, dizziness, lightheadedness or fainting. She states that the pain occurs both at rest and with exertion Past Medical History Past Medical History (Chronic Problems): Chronic Problems (Last Updated 06/15/18 @ 17:05 by Aviva Byrne) Family history of ischemic heart disease (Chronic) History of left heart catheterization (Chronic 06/15/18) Per Dr. Jones: normal coronaries and normal EF History of eating disorder (Chronic) History of insomnia (Chronic) Tobacco dependence (Chronic) Migraine (Chronic) Rheumatoid arthritis (Chronic) Medical History: Medical History (Last Updated 06/15/18 @ 17:05 by Aviva Byrne) Family history of ischemic heart disease (Chronic) Z82.49 Hyperlipidemia (Acute) E78.5 History of eating disorder (Chronic) Z86.59 History of insomnia (Chronic) Z87.898 Tobacco dependence (Chronic) F17.200 Chest pain (Acute) R07.9 Migraine (Chronic) G43.909 Rheumatoid arthritis (Chronic) M06.9 Allergies oxycodone HCl [From Percocet] Allergy (Severe, Verified 06/15/18 11:47) Anaphylaxis gabapentin [From Horizant] Adverse Reaction (Intermediate, Verified 06/15/18 11:47) Edema Home Medications: Ambulatory Orders Medication Instructions Recorded Albuterol Inhaler [Ventolin Hfa] 1 - 2 puff INHALATION Q4H PRN PRN 05/01/14 Ibuprofen [Advil] 200 mg PO Q6H PRN PRN 03/22/17 Surgical History: Surgical History (Last Updated 06/15/18 @ 17:05 by Aviva Byrne) History of left heart catheterization (Chronic) Onset Date: 06/15/[address] Jones: normal coronaries and normal EF History of back surgery Z98.890 History of section Z98.891 History of cholecystectomy Z90.49 History of foot surgery Z98.890 History of rotator cuff surgery Z98.890 Hx of left knee surgery Z98.890 history of coccyx removal history of wrist surgery 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 History of lumpectomy of right breast Z98.890 Surgical History: , , Smoking Status: Current every day smoker Alcohol: None Drugs: None - *Family History Maternal Family History: Family History (Last Reviewed 06/15/18 @ 11:44 by Aviva Byrne) Mother Breast cancer Grandmother Breast cancer Other Heart disease Hypertension Isela Gehrigs disease Myocardial infarction Review of Systems Constitutional: Denies: Chills, Fever, Weight Change HEENT: Denies: Head Aches, Sinus Congestion, Sinus Drainage Cardiovascular: Reports: Chest Pain. Denies: Heaviness, Light Headedness, Palpitations Respiratory: Denies: Cough, Shortness of Breath, Shortness of breath at rest, Sputum production Gastrointestinal: Denies: Abdominal Pain, Nausea, Vomiting Genitourinary: Denies: Dysuria Musculoskeletal: Denies: Joint Pain, Joint Tenderness Skin: Denies: Rash, Wounds Neurological: Denies: Numbness, Tingling, Focal weakness Psychiatric: Denies: Anxiety, Depression Hematologic/ Lymphatic: Denies: Easy Bruising, Easy Bleeding VTE Information - Inpt Only VTE Present on Admission: No - Physical Exam General: Alert, Oriented x3, Cooperative, No apparent distress HEENT: Atraumatic, PERRLA, EOMI, Normocephalic Oral: Moist Mucosa Neck: Supple, No JVD Lungs: Clear to auscultation, Normal air movement, No rhonchi, No wheeze, No rales Cardiovascular: Regular rate, Regular Rhythm, Normal S1, Normal S2, No murmurs Abdomen: Soft, Non Tender, Non-Distended, No Hepato-splenomegaly Extremities: No edema, Capillary Refill Less than 3 Seconds Skin: No rashes, No breakdown Musculoskeletal: No Tenderness to Palpation of Joints or Extremities Neurological: Neuro grossly intact, Sensory exam intact to light touch and pain Psych/Mental Status: Normal Affect, Appropriate Vital Signs Temp Pulse Resp BP Pulse Ox 97.8 F 62 16 95/56 L 95 06/15/18 13:36 06/15/18 17:15 10/05/18 17:15 06/15/18 17:15 06/15/18 17:15 Oxygen Delivery Method Room Air Weight: 190 lb Body Mass Index (BMI) 30.7 Laboratory Tests Past 24 Hrs Assessment/Plan All Active Problems (Last Updated 06/15/18 @ 17:05 by Aviva Byrne) Hyperlipidemia (Acute) Chest pain (Acute) 1. Chest pain/HLD/HTN - She is to undergo a cardiac cath today - She does appear anxious at times, so will pre-medicate with valium - Troponin is normal and EKG is non-ischemic - Given how late this cath is occurring, will plan to keep overnight - She was loaded with plavix last night in the ER, will give her baby aspirin and 75 mg of plavix - c/w HCTZ - Plan to DC on propranolol and a statin in the am 2. RA - stable - c/w mobic for the pain 3. Tobacco abuse - discussed cessation - can order a nicotine patch if needed DVT: Heparin Diet: Cardiac Code Visit OBSV E AND M: [id number] Initial observation care L3 06/15/18 1729 <Electronically signed by Tico Howard MD> Date Tico Howard MD Cosigner Signature: Date (if applicable) CC: Leidy Crawford DO; Tico Howard MD Signed PROTHROMBIN TIME W/INR Collected: 06/15/2018 Status: F Source: NARCISA 1:[address] [facility] REPOSITORY TYPE CODE TESTS RESULT OUT OF RANGE REFERENCE UNITS LAB L300.4150 11.7-14.9 SECONDS Normal PROTIME 13.7 LAB L300.4200 Normal INR 1.1 Performed By: #### L300.3900 #### [facility] [address] [place], [address] BASIC METABOLIC Collected: 06/15/2018 Status: F Source: JACKMAN PROFILE (BMP) 1:[address] [facility] REPOSITORY TYPE CODE TESTS RESULT OUT OF RANGE REFERENCE UNITS LAB L501.0100 74-106 mg/dL Normal GLU 103 Result Comment: Fasting Glucose result from 100 to 125 mg/dL suggests IMPAIRED HOMEOSTASIS per A.D.A. criteria. Please note revised GLUCOSE reference range effective 2017. LAB L501.1000 7-18 mg/dL Normal BUN 12 LAB L501.1100 0.55-1.02 mg/dL Normal CREAT,SERUM 0.61 Result Comment: The validity of the calculated GFR AND GFRAA in patients over 70 years has not been determined. Clinical correlation is essential. LAB L501.1110 >60 mL/min Normal EST GFR 109 Result Comment: Non- GFR Calc LAB L501.1115 >60 mL/min Normal EST GFR - AA 132 Result Comment: GFR Calc LAB L501.1255 ml/min Normal Estimated CRCL 99.85 LAB L501.1300 10-20 RATIO Normal BUN/CRE 19.7 LAB L501.2200 8.5-10 mg/dL Normal .1 CA 8.7 LAB L501.5300 136-14 mmol/L Normal 5 NA 139 LAB L501.5600 3.5-5. mmol/L Normal 1 K 3.6 LAB L501.5900 98-107 mmol/L Normal CL 107 LAB L501.6100 21.0-3 mmol/L Normal 2.0 CO2 22.0 LAB L501.6200 5-15 Normal GAP 10 Performed By: #### L500.2500, L501.4010 #### [facility] [address] [place], [address] TROPONIN-I Collected: 06/15/2018 Status: F Source: JACKMAN 1:[address] [facility] REPOSITORY TYPE CODE TESTS RESULT OUT OF RANGE REFERENCE UNITS LAB L501.4010 <0.045 ng/mL Normal < 0.015 TROPONIN-I Result Comment: TROPONIN-I EXPECTED VALUES <0.045 Negative 0.045 - 0.590 Consistent with Cardiac Damage > OR = 0.600 Critical Value Not every elevated troponin is indicative of VA. These values should be used with clinical judgement in examining the patient's clinical picture for diagnosis. To establish a diagnosis of VA versus myocardial injury, there must be a demonstrated rise and/or fall in the troponin values, in addition to ischemic symptoms, EKG changes, new regional wall motion abnormality, and/or angiographical evidence. PLEASE NOTE: REFERENCE RANGES EDITED 18 Performed By: #### L500.2500, L501.4010 #### [facility] [address] [place], [address] ,SERUM,HCG QUALI. Collected: Status: F Source: JACKMAN 06/15/2018 1:[address] [facility] REPOSITORY Order Comment: Comments: USE BLOOD IN LAB TYPE CODE TESTS RESULT OUT OF REFERENCE UNITS RANGE LAB L700.7000 0-9 Nonpreg Negative Normal HCGSQUAL NEGATIVE LAB L700.6700 =>Qualitative mIU/mL Normal HCG Qual 2 triggr Performed By: #### L700.6800 #### [facility] [address] [place], [address] CARDIOLOGY VISIT Observed: 06/15/2018 Status: F Source: JACKMAN REPORT 12:[address] [facility] REPOSITORY [facility] [address] [place] [address] OFFICE VISIT Date of Service: 06/15/18 MR#: [id number] Acct: [id number] Name: DARWIN CULLEN Rep #: [id number] : 1965 Provider: Angel Jones MD Age/Sex: 53/F Location: [facility] Status: Signed HPI HPI Chief Complaint: New onset chest pain Details: DARWIN CULLEN, is a 53 F who presents to the office today for new onset chest pain. 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 In addition she has a very significant family history of premature coronary artery disease in her father who had myocardial infarction in his 50s, all of her paternal uncles have from coronary artery disease, and an older brother who at age 60 had a heart attack and stents. Patient was in normal health up until Monday evening after returning from work in the ER she noted that she was tired, did not feel well, and had left arm heaviness with pain radiating up into her left upper chest and into her left jaw. Patient did not eat that evening as she did not feel well and went to bed. Patient worked in the ER the next morning but developed similar type left arm heaviness and chest pain on her way in to the ER for her morning shift. She did not feel well the entire day, having waxing and waning left arm heaviness with associated left upper chest and left jaw pain with associated nausea but no vomit. She had no associated diaphoresis or shortness of breath. After work last evening she went to [facility] ER for evaluation by Dr. Joe Hidalgo. An EKG was performed which demonstrated normal sinus rhythm, normal axis, normal intervals, no evidence of previous myocardial infarction or dynamic changes. She had one troponin performed which was negative. I was called with her condition last evening and requested that she be admitted but she declined as she is a single mother with a 16-year-old daughter who does not drive. This morning while she was feeding her go to a she had recurrent left arm heaviness, with associated chest pressure. There appears to be a subtle relationship to her symptoms after she smokes which occur about 1 hour after she smokes a cigarette. On further history she has a history of left knee surgery, and is unable to walk on a treadmill. Patient was loaded with Plavix 300 mg x1 last evening, but she has not taken Plavix or aspirin today. Currently she is stable, and asymptomatic. In our office her blood pressure is 104/68, pulse is 56 and regular. Her physical exam demonstrates clear lungs bilaterally, regular rate and rhythm, normal S1/S2, no S3 or S4, no murmurs are detected. She has no edema. Her lipids as of 05/28/18 showed LDL of 126 and an HDL of 53. EKG is as above Intake Vital Signs06/15/18 Height 5 ft 6 in 06/15/18 Weight: 206 lb 06/15/18 Body Mass Index (BMI) 33.2 06/15/18 Blood Pressure 104/68 Intake Visit Reasons: CP ([facility] ER) [employer] Required: No Is patient in pain?: No Allergies oxycodone HCl [From Percocet] Allergy (Severe, Verified 06/15/18 11:47) Anaphylaxis gabapentin [From Horizant] Adverse Reaction (Intermediate, Verified 06/15/18 11:47) Edema Medications Albuterol Inhaler [Ventolin Hfa] 1 - 2 puff INHALATION Q4H PRN PRN 05/01/14 [History Confirmed 06/15/18] Ibuprofen [Advil] 200 mg PO Q6H PRN PRN 03/22/17 [History Confirmed 06/15/18] Aspirin [Aspirin, Baby] 81 mg PO DAILY@0800 #30 tab.chew 06/14/18 [Rx Confirmed 06/15/18] Clopidogrel Bisulfate [Plavix] 75 mg PO DAILY #30 tab 06/14/18 [Rx Confirmed 06/15/18] Meloxicam [Mobic] 15 mg PO DAILY 06/14/18 [History Confirmed 06/15/18] Ondansetron [Zofran Odt] 4 mg PO Q8H PRN PRN #10 tab 06/14/18 [Rx Confirmed 06/15/18] hydrochlorothiazide 25 mg tablet 12.5 mg PO .COMPLEX 06/15/18 [History Confirmed 06/15/18] PFSH Medical History History of eating disorder (Chronic) History of insomnia (Chronic) Tobacco dependence (Chronic) Chest pain (Acute) Migraine (Chronic) Rheumatoid arthritis (Chronic) Surgical History History of lumpectomy of right breast (Chronic) History of back surgery (Acute) History of section (Acute) History of cholecystectomy (Acute) History of foot surgery (Acute) History of rotator cuff surgery (Acute) Hx of left knee surgery (Acute) history of coccyx removal (Acute) history of wrist surgery (Acute) 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 (Acute) Family History Mother Breast cancer Grandmother Breast cancer Other Heart disease Hypertension Isela Gehrigs disease Myocardial infarction Social History Smoking Status: Current every day smoker alcohol intake: never substance use type: does not use ROS Const Const: Positive for fatigue and other (Was in ER last evening with CP radiating down left arm. Nausea today.); negative for weakness, body ache, fever(s), headache(s), chills, frequent falls, night sweats, daytime sleepiness, difficulty sleeping, excessive sweating, weight gain, weight loss, increased appetite, poor appetite or anorexia ENT ENT: Negative for headache(s) Cardio Chest Pain: Yes (Last evening chest, neck, left arm. This am pressure left arm and neck 10am) Frequency: other (Yesterday and this am first time noticed. Prior to that has had palps.) Character: tightness, squeezing, dull Onset: exercise Location: other (left arm, also up neck), mid sternal Duration: minutes (Off and on throughout work day yesterday, got worse) Exacerbation: activity Relieving: rest Recurrence: other (spontaneous) Palpitations: No Edema: None Muscle aches with walking: None Resp Respiratory: Positive for SOB with activity (ran marathon a year and a half ago. Gained 60 lbs after knee surgery); negative for SOB at rest, SOB orthopnea\SOB lying down, Cough, Coughing up blood/hemoptysis, chest congestion, pain on inspiration, snoring, stridor, wheezing, crackles, paroxysmal nocturnal dyspnea or other GI GI: Positive for nausea; negative vomiting, heartburn, constipation, belching, bloating, cramping, vomiting blood/hematemesis, bright, red blood in stools, black,tarry stools, loose stools, Difficulty Swallowing or other Neuro Neuro: Negative for weakness, headache(s) or frequent falls Endo Endo: Positive for fatigue; negative for excessive sweating Cardiology Exam Const Appearance: cooperative, healthy appearing and no acute distress Nutritional Appearance: well nourished Orientation: alert, oriented x3 and oriented to person Head Head: normal to inspection, atraumatic and normocephalic Nose: external nose normal Face and Sinus: face symmetric Mouth: oral mucosae normal Eyes General: appearance normal, both eyes and all related structures Eyelids: eyelids normal Conjunctivae: conjunctivae normal Pupils: PERRL and normal by confrontation EOM: EOM intact bilaterally Neck Neck: normal visual inspection and full ROM Carotids: normal carotid upstroke Chest Chest inspection: normal inspection of the chest Auscultation: Bilateral: Clear to Auscultation Cardio Palpation: normal PMI Rate: regular rate Rhythm: regular rhythm Heart sounds: S1 normal and S2 normal GI GI: normal to inspection, no hepatosplenomegaly and bowel sounds present Neuro General: alert, oriented x3, awake, CN's II-XI intact bilaterally and moves all extremities Skin Skin: no rashes or lesions noted Extremities Pulses: Normal: Right Femoral Pulse, Left Femoral Pulse, Right Dorsalis Pedis Pulse, Left Dorsalis Pedis Pulse, Right Posterior Tibial Pulse, Left Posterior Tibial Pulse, Right Radial Pulse, Left Radial Pulse Lower Extremity Edema: None: Bilateral Psych Psychological: normal affect Assessment AND Plan 1. Chest pain R07.9 Plan 1. Chest pain: The patient appears to have new onset anginal equivalent symptoms such as left arm heaviness, left upper chest pain, radiating to her jaw with associated nausea. Her EKG shows no dynamic changes as of last evening and despite aspirin and Plavix, she continues to have symptoms. At this point I recommended the patient be directly admitted from our office followed by an urgent left heart catheterization given her constellation of symptoms. Patient is quite concerned about the welfare of her 16-year-old daughter who does not drive and is currently in high school. She has agreed to make contact with her daughter, in order to make arrangements for her this evening. I am somewhat concerned about obtaining a dobutamine echocardiogram given her symptoms as this may be somewhat risky. The meantime she will continue baby aspirin, Plavix, will hold off on beta-blockers given her bradycardia and relative hypotension. In addition I would recommend starting her on a statin such as Lipitor 40 mill grams p.o. nightly given her positive family history of coronary disease irrespective of what we find with her catheterization. Pt has agreed to [facility] and direct admission from our office. 2. Tobacco dependence F17.200 Plan 2. Tobacco abuse: I have strongly encouraged the patient to discontinue all tobacco products. Patient has agreed to consider it. 3. RTO in 6 months. This note was generated using a voice recognition system and there may be incorrect words, spelling or punctuation that were not noted when reviewing the office note prior to saving. Plan Detail Follow Up +6M (Juan F) Coding Level of Care Code Off vis,new,level 4 Diagnoses Chest pain R07.9 Tobacco dependence F17.200 Coding Level of Care Code Off vis,new,level 4 Diagnoses Chest pain R07.9 Tobacco dependence F17.200 06/15/18 1236 <Electronically signed by Angel Jones MD> Date Angel Jones MD [facility] Signature: Date (if applicable) CC: Leidy Crawford DO EMERGENCY DEPARTMENT Observed: 06/14/2018 Status: F Source: JACKMAN SUMMARY 11:[address] [facility] REPOSITORY [facility] Medical Records Department [address] [address] Emergency Department Summary 06/14/18 1723 MR#: [id number] Acct: [id number] Name: DARWIN CULLEN Rep #: [id number] : 1965 53 From: Sol Shirley MD PCP: Leidy Crawford DO Status: DEP ER - ER Visit Summary Date of Service: 06/14/18 Chief Complaint: Chest pain, left arm pain History of Present Illness: The patient is a 53 F who noted left arm heaviness last evening and just did not feel right. This morning she is still not feeling well, had occasional pain radiating to her left neck, and felt nauseated. This afternoon she had occasional left sternal pressure. She had one brief episode of diaphoresis. Physical Examination: Vital signs are unremarkable. Patient sitting upright in bed no acute distress. Head and neck examination unremarkable. Heart is regular rate and rhythm. Lung sounds are clear. There is no reproducible chest wall tenderness. Abdomen is soft nontender. Extremity examination reveals no muscular tenderness throughout the left arm. She has normal strength on testing. She has strong pulses. Test Results: EKG is sinus bradycardia at 58 bpm with no sign of acute ischemia. CBC and chemistry studies normal. Troponin less than 0.015. Chest x-ray shows no acute process. Emergency Department Course and Treatment: Patient was given aspirin and Zofran here. On repeat evaluation she still has some heaviness in her arm. She states nausea was initially improved but is now returning. Patient will restart her reflux medication. She will be given Zofran ODT. Patient declines admission, but I did speak with Dr. Jones and he will see her in the office tomorrow. He wishes the patient to be started on Plavix, 300 mg now and 75 mg a day. She is also to start baby aspirin daily. Treatment Plan: [] Disposition: Discharge Impression: Chest pain This note was generated with [employer] dictation software. It may contain incorrect words, spelling, and punctuation that were not noted in review of the chart prior to signing ED Disposition - Plan for ED Patient: Chief Complaint: Chest Pain Referrals: Leidy Crawford DO [Primary Care Provider] - What to do if you have Problems For any increased pain, shortness of breath, bleeding, nausea or vomiting, chest pain, or any unexpected problems, contact your Primary Care Provider. Call [facility] ([phone]) or report to the closest Emergency Room. Call 911 if necessary. 06/14/18 2339 <Electronically signed by Sol Shirley MD> Date Sol Shirley MD Cosigner Signature (If Indicated): Date CC: Leidy Crawford DO DISCHARGE INSTRUCTION Observed: 06/14/2018 Status: F Source: JACKMAN 6:[address] [facility] REPOSITORY [facility] Medical Records Department [address] [place] [address] Discharge Instruction 06/14/18 1850 MR#: [id number] Acct: [id number] Name: DARWIN CULLEN Rep #: [id number] : 1965 53 From: Sol Shirley MD PCP: Leidy Crawford DO Status: REG ER ED Disposition - Plan for ED Patient: Disposition: Home or Assisted Living Chief Complaint: Chest Pain Instructions: ED Chest Pain Atypical Unkn Cause Prescriptions: Ondansetron [Zofran Odt] 4 mg PO Q8H PRN PRN #10 tablet PRN Reason: Nausea Aspirin [Aspirin, Baby] 81 mg PO DAILY@0800 #30 tab.chew Clopidogrel Bisulfate [Plavix] 75 mg PO DAILY #30 tablet Referrals: Angel Jones MD [STAFF PHYSICIAN] - 1 Day What to do if you have Problems For any increased pain, shortness of breath, bleeding, nausea or vomiting, chest pain, or any unexpected problems, contact your Primary Care Provider. Call [facility] ([phone]) or report to the closest Emergency Room. Call 911 if necessary. 06/14/18 0872 <Electronically signed by Sol Shirley MD> Date Sol Shirley MD Cosigner Signature (If Indicated): Date CC: Leidy Crawford DO CHEST 1 VIEW Observed: 06/14/2018 Status: F Source: NARCISA (PORTABLE) 5:[address] [facility] REPOSITORY [facility] Imaging Services [address] [place] [address] Chest 1 View (Portable) MR#: [id number] Acct: [id number] Name: DARWIN CULLEN Judy Rep #: [id number] : 1965 F 53 From: Aidan Garcia MD PCP: Leidy Crawford DO Status: PRE ER Study: Chest 1 View (Portable) Date of Exam: 06/14/18 Exam# [id number] Ordering Dr: Sol Shirley MD STUDY: X-RAY CHEST REASON FOR EXAM: Female, 53 years old. Chest pain TECHNIQUE: Single AP portable view of the chest. COMPARISON: 04/14/2017 FINDINGS: EKG leads overlie the chest The lungs are clear and expanded. There is no demonstrated pleural abnormality. Normal size heart. Normal mediastinum and mu. Normal visualized pulmonary arteries. Normal visualized aortic arch and descending thoracic aorta. Normal visualized thoracic spine. Normal visualized ribs, clavicles, and shoulders. There is no demonstrated abnormality of the visualized soft tissue structures of the upper abdomen. RAD/Chest 1 View (Portable) IMPRESSION: No acute pulmonary process Electronically Signed: Pedro Luis Garcia MD at 17:54 EDT , Service support , CC: Sol Shirley MD; Leidy Crawford DO Exchange Operator: Signed CBC W/DIFF, AUTOMATED Collected: 06/14/2018 Status: F Source: NARCISA 5:[address] [facility] REPOSITORY TYPE CODE TESTS RESULT OUT OF RANGE REFERENCE UNITS LAB L100.1000 4.4-11.0 K/mm3 Normal WBC 5.1 LAB L100.1200 4.2-5.4 M/mm3 Low RBC 4.18 LAB L100.1300 12.0-15.0 g/dl Normal HGB 13.2 LAB L100.1400 37-47 % Normal HCT 39.4 LAB L100.1500 81-99 fL Normal MCV 94.3 LAB L100.1600 27.0-32.0 pg Normal MCH 31.6 LAB L100.1700 32-36 g/gl Normal MCHC 33.5 LAB L100.1810 11.6-14.6 % Normal RDW CV 12.4 LAB L100.1820 35.1-43.9 fl Normal RDW SD 42.6 LAB L100.1900 150-450 K/mm3 Normal PLT 283 LAB L100.2000 6.2-12.0 fl Normal MPV 9.0 LAB L100.2100 47-70 % Low NEUT% 42.5 LAB L100.2200 19-41 % High LY% 48.0 LAB L100.2300 0-10 % Normal MONO% 7.0 LAB L100.2400 0-5 % Normal EO% 1.9 LAB L100.2500 0-1 % Normal BASO% 0.6 LAB L100.2550 0.0-0.9 % Normal IM GRAN % 0.000 Result Comment: IG% - Immature Granulocytes (promyelocytes, myelocytes and metamyelocytes) > 1% indicates that a LEFT SHIFT is Present. LAB L100.2620 2.0-7.7 X10 3/uL Normal Absolute Neut 2.2 LAB L100.2720 0.83-4.51 X10 3/ul Normal Absolute Lymph 2.46 Performed By: #### L100.0100 #### [facility] [address] [facility] [place], [place], [address] BASIC METABOLIC Collected: 06/14/2018 Status: F Source: JACKMAN PROFILE (BMP) 5:[address] [facility] REPOSITORY TYPE CODE TESTS RESULT OUT OF RANGE REFERENCE UNITS LAB L501.0100 74-106 mg/dL Normal GLU 88 Result Comment: Please note revised GLUCOSE reference range effective 2017. LAB L501.1000 7-18 mg/dL Normal BUN 14 LAB L501.1100 0.55-1.02 mg/dL Normal CREAT,SERUM 0.59 Result Comment: The validity of the calculated GFR AND GFRAA in patients over 70 years has not been determined. Clinical correlation is essential. LAB L501.1110 >60 mL/min Normal EST GFR 112 Result Comment: Non- GFR Calc LAB L501.1115 >60 mL/min Normal EST GFR - AA 136 Result Comment: GFR Calc LAB L501.1255 ml/min Normal Estimated CRCL 103.23 LAB L501.1300 10-20 RATIO High BUN/CRE 23.6 LAB L501.2200 8.5-10 mg/dL .1 CA Normal 9.7 LAB L501.5300 136-14 mmol/L 5 NA Normal 139 LAB L501.5600 3.5-5. mmol/L 1 K Normal 3.5 LAB L501.5900 98-107 mmol/L CL Normal 105 LAB L501.6100 21.0-3 mmol/L 2.0 CO2 Normal 28.0 LAB L501.6200 5-15 GAP Normal 6 Performed By: #### L500.2500, L501.4010 #### [facility] [address] [place] [place], [address] TROPONIN-I Collected: 06/14/2018 Status: F Source: JACKMAN 5:[address] [facility] REPOSITORY TYPE CODE TESTS RESULT OUT OF RANGE REFERENCE UNITS LAB L501.4010 <0.045 ng/mL Normal < 0.015 TROPONIN-I Result Comment: TROPONIN-I EXPECTED VALUES <0.045 Negative 0.045 - 0.590 Consistent with Cardiac Damage > OR = 0.600 Critical Value Not every elevated troponin is indicative of VA. These values should be used with clinical judgement in examining the patient's clinical picture for diagnosis. To establish a diagnosis of VA versus myocardial injury, there must be a demonstrated rise and/or fall in the troponin values, in addition to ischemic symptoms, EKG changes, new regional wall motion abnormality, and/or angiographical evidence. PLEASE NOTE: REFERENCE RANGES EDITED 18 Performed By: #### L500.2500, L501.4010 #### [facility] [address] [place], [address] ORTHOPEDIC VISIT Observed: 06/11/2018 Status: F Source: JACKMAN REPORT 8:[address] [facility] REPOSITORY [facility] [address] [place] [address] OFFICE VISIT Date of Service: 05/28/18 MR#: [id number] Acct: [id number] Name: BANDARDARWIN Judy Rep #: [id number] : 1965 Provider: Arnel Juarez DO Age/Sex: 53/F Location: [facility] Status: Signed Intake Intake Visit Reasons: LEFT KNEE Is patient in pain?: Yes Allergies oxycodone HCl [From Percocet] Allergy (Verified 05/28/18 10:00) Itching Medications Albuterol Inhaler [Ventolin Hfa] 1 - 2 puff INHALATION Q4H PRN PRN 05/01/14 [History Confirmed 04/14/17] Hydrochlorothiazide [Hctz] 12.5 mg PO DAILY 03/22/17 [History Confirmed 04/14/17] Ibuprofen [Advil] 200 mg PO Q6H PRN PRN 03/22/17 [History Confirmed 04/14/17] Ondansetron [Zofran] 8 mg PO Q8H PRN PRN #20 tab 03/29/17 [Rx Confirmed 04/14/17] Pantoprazole Sodium [Protonix] 20 mg PO DAILY #30 tab 04/14/17 [Rx] methylprednisolone 4 mg tablets in a dose pack See Rx Instructions PO PER PKG DIR #21 tab 03/13/18 [Rx Confirmed 03/13/18] PFSH Surgical History History of back surgery (Acute) History of section (Acute) History of cholecystectomy (Acute) History of foot surgery (Acute) History of rotator cuff surgery (Acute) Hx of left knee surgery (Acute) history of coccyx removal (Acute) history of wrist surgery (Acute) 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 (Acute) Family History Other Heart disease Hypertension Isela Gehrigs disease Myocardial infarction Social History Smoking Status: Current every day smoker alcohol intake: never substance use type: does not use HPI LEFT KNEE: Details: DARWIN CULLEN is a 53 year old F here today for a followup on her left knee MRI. Patient notes that she continues to have left knee pain. Patient has pain over her lateral posterior knee, lateral knee and into her lateral calf. She has been wearing a brace the past few days due to her pain. She notes that she has decreased knee flexion and instability. Patient has swelling over her knee. She has occasional popping with end range knee extension. Patient denies any recent injections. Her MRI is here for review. ROS Const Reports system reviewed and no additional complaints, except as docu Eyes Reports system reviewed and no additional complaints, except as docu ENT Reports system reviewed and no additional complaints, except as docu Card Reports system reviewed and no additional complaints, except as docu Resp Reports system reviewed and no additional complaints, except as docu GI Reports system reviewed and no additional complaints, except as docu Reports system reviewed and no additional complaints, except as docu Musc Reports joint pain, Reports joint swelling, Reports limited joint movement Skin/Breast Reports system reviewed and no additional complaints, except as docu Neuro Yes system reviewed and no additional complaints, except as docu Psych Reports system reviewed and no additional complaints, except as docu Endo Reports system reviewed and no additional complaints, except as docu Assessment AND Plan 1. Osteoarthritis of left knee, unspecified osteoarthritis type M17.12 Plan Personally reviewed the MRI and explained that there is no new injury or meniscus tears, with degenerative changes in the ACL. Due to the sharp pain and lack of peroneal strength we will order an EMG of the lower LE. She could have nerve entrapped at the fibular head or higher but emg will aid in treatment plan. Follow up after EMG or sooner if pain, swelling, numbness or associated symptoms, or concerns develop. All questions answered. Patient in agreement of plan. 2. Leg weakness R29.898 Orders Orders: Coding Level of Care Code Off vis,est,level 4 Diagnoses Osteoarthritis of left knee, unspecified osteoarthritis type M17.12 Osteoarthritis type: unspecified Leg weakness R29.898 06/11/18 0824 <Electronically signed by Arnel Juarez DO> Date Arnel Juarez DO Cosigner Signature: Date (if applicable) CC: URINALYSIS, EMPLOYEE Collected: 05/28/2018 Status: F Source: NARCISA 9:[address] [facility] REPOSITORY TYPE CODE TESTS RESULT OUT OF RANGE REFERENCE UNITS LAB L400.3000 Yellow COLOR Normal Yellow LAB L400.3050 Clear Normal CLARITY Clear LAB L400.3200 Normal mg/dl Normal GLUCOSE, UR Normal LAB L400.3300 Negative mg/dL Normal BILIRUBIN URINE Negative LAB L400.3400 Negative mg/dl Normal KETONE UR Negative LAB L400.3465 1.002-1.030 Normal SP.GR. DIPSTX 1.005 LAB L400.3550 5.0 - 8.0 pH UR Normal 7.0 LAB L400.3600 Negative mg/dl PROT Normal DIPSTX Negative LAB L400.3700 Normal mg/dl Normal UROBILI Normal LAB L400.3750 Negative Normal NITRITE UR Negative LAB L400.3780 Negative /ul Normal OCCULT BLOOD-UR Negative LAB L400.3800 Negative /ul LEUK Normal ESTERASE Negative Performed By: #### L400.0100 #### [facility] [address] [place], [address] CBC, EMPLOYEE Collected: 05/28/2018 Status: F Source: NARCISA 9:[address] [facility] REPOSITORY TYPE CODE TESTS RESULT OUT OF RANGE REFERENCE UNITS LAB L100.1000 4.4-11.0 K/mm3 Normal WBC 5.3 LAB L100.1200 4.2-5.4 M/mm3 Normal RBC 4.22 LAB L100.1300 12.0-15.0 g/dl Normal HGB 13.3 LAB L100.1400 37-47 % Normal HCT 40.3 LAB L100.1500 81-99 fL Normal MCV 95.5 LAB L100.1600 27.0-32.0 pg Normal MCH 31.5 LAB L100.1700 32-36 g/gl Normal MCHC 33.0 LAB L100.1810 11.6-14.6 % Normal RDW CV 12.6 LAB L100.1820 35.1-43.9 fl Normal RDW SD 43.7 LAB L100.1900 150-450 K/mm3 Normal PLT 270 LAB L100.2000 6.2-12.0 fl Normal MPV 9.0 LAB L100.2110 47-70 % Normal NEUT% 57.5 LAB L100.2210 19-41 % Normal LY% 34.5 LAB L100.2310 0-10 % Normal MONO% 5.9 LAB L100.2410 0-5 % Normal EO% 1.7 LAB L100.2510 0-1 % Normal BASO% 0.4 LAB L100.2620 2.0-7.7 X10 3/uL Normal Absolute Neut 3.0 LAB L100.2720 0.83-4.51 X10 3/ul Normal Absolute Lymph 1.82 Performed By: #### L100.0200 #### [facility] [address] [place], [address] NICOTINE URINE DRUG Collected: 05/28/2018 Status: F Source: NARCISA SCREEN 9:[address] [facility] REPOSITORY TYPE CODE TESTS RESULT OUT OF RANGE REFERENCE UNITS LAB L505.6250 TO BE Normal CONFIRMED Result Comment: CONFIRMATORY TESTING FOR ALL POSITIVE URINE DRUG SCREEN RESULTS WILL ONLY BE SENT OUT UPON PHYSICIAN ORDER. The results of Urine Drug Screen methods provide only preliminary analytical test results. A more specific alternate chemical method must be used in order to obtain a confirmed analytical result. Gas chromatography/mass spectrometery (GC/MS) is the preferred confirmatory method. Clinical consideration and professional judgement should be applied to any drug of abuse test result, particularly when preliminary positive results are used. LAB L505.6270 <200 ng/mL High COT DRG Positive SCREEN Result Comment: Cotinine is the first-stage metabolite of Nicotine. Performed By: #### L505.6240 #### [facility] [address] [place], [place], [address] EMPLOYEE PROFILE Collected: 05/28/2018 Status: F Source: NARCISA 9:[address] [facility] REPOSITORY TYPE CODE TESTS RESULT OUT OF RANGE REFERENCE UNITS LAB L501.0100 74-106 mg/dL Normal GLU 104 Result Comment: Fasting Glucose result from 100 to 125 mg/dL suggests IMPAIRED HOMEOSTASIS per A.D.A. criteria. Please note revised GLUCOSE reference range effective 2017. LAB L501.1000 7-18 mg/dL High BUN 20 LAB L501.1100 0.55-1.02 mg/dL Normal CREAT,SERUM 0.70 Result Comment: The validity of the calculated GFR AND GFRAA in patients over 70 years has not been determined. Clinical correlation is essential. LAB L501.1110 >60 mL/min Normal EST GFR 93 Result Comment: Non- GFR Calc LAB L501.1115 >60 mL/min Normal EST GFR - AA 112 Result Comment: GFR Calc LAB L501.1300 10-20 RATIO High BUN/CRE 28.5 LAB L501.1400 2.6-6.0 mg/dL Normal URIC 4.9 Result Comment: The drugs N-Acetylcysteine and Metamizole may falsely depress this assay. LAB L501.1500 6.4-8.2 g/dL Normal T PROT 7.1 LAB L501.1800 3.2-5.0 g/dL Normal ALB 3.4 LAB L501.1950 2.2-4.2 g/dL Normal GLOB 3.7 LAB L501.2000 0.9-2.4 RATIO Normal A/G 0.9 LAB L501.2200 8.5-10.1 mg/dL Normal CA 8.5 LAB L501.2300 2.5-4.9 mg/dL Normal PHOS 3.4 LAB L501.4100 15-37 U/L Normal AST 16 LAB L501.4305 45-117 U/L Normal ALK P 79 LAB L501.4405 13-56 U/L Normal ALT 27 LAB L501.4600 0.20-1.00 mg/dL Normal T BILI 0.30 LAB L501.4700 0.00-0.30 mg/dL Normal D BILI 0.09 LAB L501.4900 200 mg/dL Normal CHOL 194 Result Comment: <200 mg/dL Desirable 200-240 mg/dL Borderline >240 mg/dL High Risk LAB L501.5000 mg/dL Normal TRIG 74 Result Comment: The drugs N-Acetylcysteine and Metamizole may falsely depress this assay. Serum Triglycerides Reference Interval Normal <150 mg/dL Borderline high 150 - 199 mg/dL High 200 - 499 mg/dL Very High > or = 500 mg/dL LAB L501.5300 136-145 mmol/L Normal NA 141 LAB L501.5600 3.5-5.1 mmol/L Normal K 4.1 LAB L501.5900 98-107 mmol/L High CL 109 LAB L501.6100 21.0-32.0 mmol/L Normal CO2 26.0 LAB L501.6200 5-15 Normal 6 GAP LAB L501.6400 mg/dL Normal HDL 53 Result Comment: The drugs N-Acetylcysteine and Metamizole may falsely depress this assay. Reference Range HDL <40 mg/dL Low HDL Cholesterol HDL >or= 60 mg/dL High HDL Cholesterol LAB L501.6475 Normal CHOL:HDL 3.70 LAB L501.6500 0-130 mg/dL Normal LDL 126 LAB L501.6600 5-40 mg/dL Normal VLDL 15 LAB L504.2610 84-246 U/L Normal LDH 215 Performed By: #### L500.2900 #### [facility] [address] [place], [address] LOWER EXT JOINT ONLY Observed: 05/22/2018 Status: F Source: JACKMAN (ROUTINE) 4:[address] [facility] REPOSITORY [facility] Imaging Services [address] [place] [address] Lower Ext Joint Only (Routine) MR#: [id number] Acct: [id number] Name: DARWIN CULLEN Rep #: [id number] : 1965 F 53 From: Edwin Banuelos MD PCP: Leidy Crawford DO Status: REG CLI Study: Lower Ext Joint Only (Routine) Date of Exam: 05/22/18 Exam# [id number] Ordering Dr: Arnel Juarez DO STUDY: MRI LEFT KNEE REASON FOR EXAM: Left posterior knee pain radiating down leg, no new injury, surgery March 2017. TECHNIQUE: Standardized fat and water weighted pulse sequences were obtained in all 3 orthogonal planes. COMPARISON: MRI images 02/11/2017 and radiographs 06/09/2017. FINDINGS: There is a partial medial meniscectomy without discrete recurrent medial meniscal tear. There is mild arthrosis of the medial femorotibial compartment with very small marginal osteophytes and mild partial-thickness chondral loss of the medial femoral condyle (T2 sagittal image 9). Normal medial femoral condyle and tibial plateau. Normal medial collateral ligamentous complex (MCL). Normal distal semimembranosus, gracilis and semitendinosus tendons. Normal lateral meniscus. Normal hyaline cartilage of the lateral femorotibial compartment. Normal lateral femoral condyle and tibial plateau. Normal proximal tibiofibular articulation. Normal lateral collateral (fibular) ligament. Normal popliteus tendon. Normal biceps femoris tendon. There is intrasubstance mucoid degeneration of the anterior cruciate ligament (series 9 images 10, 11) without focal discontinuity of the ligament. Normal posterior cruciate ligament (PCL). Normal congruent patellofemoral articulation. Normal hyaline cartilage of the patellofemoral compartment. Normal medial and lateral patellar retinaculum. Normal quadriceps tendon. Normal patellar tendon. There is postoperative scarring in Hoffa's fat pad. There is a minimal volume of fluid in the knee joint. There is a thin medial patellar plica. There is mild edema in the anterior subcutis adipose space. There is no popliteal cyst. There is mild bone edema in distal femur near the attachment sites of the cruciate ligaments. MRI/Lower Ext Joint Only (Routine) IMPRESSION: Mild arthrosis of the medial femorotibial compartment. 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 Partial medial meniscectomy without demonstrated recurrent medial meniscal tear. No demonstrated lateral meniscal tear. Electronically Signed: Edwin Banuelos MD at 8:49 EDT Tel , Service support , CC: Arnel Juarez DO; Leidy Crawfodr DO Exchange Operator: Signed INITAL EVALUATION (1) Observed: 03/21/2018 Status: F Source: JACKMAN - PT 2:[address] [facility] REPOSITORY [facility] [address] [place] [address]. [address] [place] [address] Fax REHABILITATION SERVICES INITIAL EVALUATION MR#: [id number] Acct: [id number] Name: DARWIN CULLEN Rep #: [id number] : 1965 53 From: Kathrine Palmer DPT Referring Dr.: Arnel Juarez DO Status: REG RCR Insurance: [facility] [employer] SELF PAY INSURANCE Patient's Visit Information DARWIN CULLEN is a 53 year old F referred to Physical Therapy by Arnel Juarez DO with a diagnosis of Left knee pain. Date of Evaluation: 03/21/18 Physical Therapist: Kathrine Palmer - Visit Plan Frequency: 2x /Week Duration: 3 Weeks Plan: Focus on HEP for core and LE s/s - Subjective Subjective: Left knee surgery about a year ago Meniscus repair and microfracture. Did injections after and its never been great. Has never been able to run, was in a knee brace- did not have therapy. Was getting by but 4 weeks ago her knee started to hurt. The pain is worse than she has ever had but does not feel like its in the joint. Hulbert the knee buckle occasionally but never preditcable. The problem is that their is no pattern. Pain feels like its in the posterior knee on the left. When she works a 12 hour shift she can't use her leg to get into the car. Feels like by noon she is dragging the leg with walking. Has tried a TENS unit. Took a medrol dose pack and it felt a lot better- but by the end she felt it coming back. wakes her up at night. Agg: driving, walking, standing Eases: nothing. Worst: 7/10 Best: 0/10. 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 X-ray was negative- no MRI. 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 Meds: Hctz - Objective Posture: FH, RS. Gait: slightly antalgic- decreased stance on the left LE with poor heel/toe pattern. HR/TR: unable on the left without significant UE A. SLS: 10 sec then LOB. Stairs:asc/desc 8' recip- poor control with descent. ROM: 0-125 degrees. Palpation: tender along medial and lateral joint line and posterior to the fibular head. Strength: Core: poor, Hip: 4-/5 throughout, Knee: 4+/5, ankle: 5/5 - Goals Goal 1:: Patient will be I with HEP and progression Goal Time Frame: 4-6 Weeks Goal 2:: Patient ambulate >300 feet with a normalized gait pattern Goal Time Frame: 4-6 Weeks Goal 3:: Patient will asc/desc 8'' stairs recip with 1 HR and controlled pattern Goal Time Frame: 4-6 Weeks Goal 4:: Patient will report 0/10 pain for 1 week Goal Time Frame: 4-6 Weeks Goal 5:: Patient will maintain proper posture t/o to demo increased core s/s Goal Time Frame: 4-6 Weeks - Rehabilitation Potential Physical Therapy Diagnosis: patient presents with hypomobility- she has decreased strength and muscular endurance leading to increased pain with ADL's. Rehabilitation Potential: Fair - Anticipated Interventions Patient/Client Instruction: Educate patient on: Benefits of Fitness Program For the Purpose of:: To improve ability to perform ADL's Therapeutic Exercise to Include: Strength training, Endurance training, Balance training, Agility training, Body mechanics, Postural training, Flexibilty training, Gait and locomotor training, Dynamic Lumbar Stabilization For the Purpose of:: To improve muscle performance and motor function Manual Therapy Techniques to Include: Mobilization, Functional dry needling, Soft tissue mobilization For the Purpose of:: To improve nutrient delivery to tissue TENS: Yes Cryotherapy (ice pack, ice massage): Yes Thermo therapy (hot pack): Yes Ultrasound (thermal/non thermal): Yes For the Purpose of:: To decrease pain Thank you for the opportunity to evaluate your patient. For Medicare and Medicare HMO plans, please review the plan of care and approve it. It will need to be FAXED BACK to us at [phone] for Medicare purposes. Please let me know if there are questions or concerns regarding this plan of care. Physician Signature: Date: <Electronically signed by Kathrine Palmer DPT> 03/21/18 1417 CC: Arnel Crawford DO ELR Signed For Medicare only, by signing this I certify the plan of care. Physicians Signature Date ORTHOPEDIC VISIT Observed: 03/15/2018 Status: F Source: NARCISA REPORT 10:03 AM [facility] [address] [place] [address] OFFICE VISIT Date of Service: 03/13/18 MR#: [id number] Acct: [id number] Name: DARWIN CULLEN Judy Rep #: [id number] : 1965 Provider: Arnel Juarez DO Age/Sex: 53/F Location: [facility] Status: Signed Intake Intake Visit Reasons: LEFT KNEE PAIN Is patient in pain?: Yes Pain scale (1-10): 6 Allergies oxycodone HCl [From Percocet] Allergy (Verified 04/14/17 17:27) Itching Medications Albuterol Inhaler [Ventolin Hfa] 1 - 2 puff INHALATION Q4H PRN PRN 05/01/14 [History Confirmed 04/14/17] Hydrochlorothiazide [Hctz] 12.5 mg PO DAILY 03/22/17 [History Confirmed 04/14/17] Ibuprofen [Advil] 200 mg PO Q6H PRN PRN 03/22/17 [History Confirmed 04/14/17] Ondansetron [Zofran] 8 mg PO Q8H PRN PRN #20 tab 03/29/17 [Rx Confirmed 04/14/17] Pantoprazole Sodium [Protonix] 20 mg PO DAILY #30 tab 04/14/17 [Rx] methylprednisolone 4 mg tablets in a dose pack See Label Instructions PO PER PKG DIR #21 tab 03/13/18 [Rx Confirmed 03/13/18] PFSH Social History Smoking Status: Current every day smoker HPI LEFT KNEE PAIN: Details: DARWIN CULLEN is a 53 year old F here today for increasing left knee pain. She states that her knee hurts more now than prior to surgery. She can barely get in the car without assisting her left leg after a 12 hr shift at work. Her pain is lateral and posterior. Her back does cause some n/t into that leg but that sensation has not changed. She has pain with flexion and is ttp post horn of lat meniscus. She uses the brace prn, had a couple of episodes of instability and uses the brace after those episodes. She has used pain meds once when it was bad but typically uses otc nsaids. no pain at site of pre-surgery, pain feels more posterior behind knee. no instability, locking or other mechanical symptoms. ROS [facility] Reports as per HPI, Reports joint pain, Reports joint swelling, Reports muscle weakness Ortho Exam Left Knee Skin/Wound: Yes CDI Contralateral Normal: Yes Homans Sign: No Knee ROM: Yes ROM-Extension -20 to 0, Yes ROM-Flexion 0-140 Examination: Yes Lat jt line tenderness, Yes Pain with flexion, No med jt line tenderness, No Dial at 90 Quad Atrophy: Yes Patellar Tilt Normal: Yes Patella Grind: No Assessment AND Plan 1. Chronic pain of left knee M25.562; G89.29 Plan appears to be muscle/tendon strain along back of knee. neg dial test, no instability, no effusion of knee. at this point will watch but follow if doesnt improve with conservative care will see if imaging is warranted. patient in agreement of plan, will return if symptoms persist. also rec putting brace back on to see if that helps. Gave a PT script for US and order a medrol dose pack. Instructed to cont otc nsaids. Wean back into exercise to equalize her strength. Follow up in 6wks or sooner if pain, swelling, numbness or associated symptoms, or concerns develop. All questions answered. Patient in agreement of plan. 2. 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 03/15/18 1003 <Electronically signed by Arnel Juarez DO> Date Arnel Juarez DO Cosigner Signature: Date (if applicable) CC: ALLERGIES ALLERGIES DATE TYPE / CODE NAME / CODE REACTION SEVERITY SOURCE 08/23/2018 Drug oxycodone Anaphylaxis [place] Allergy/416 HCl/[id number](R [place] [id number]([facility] ED CT) Repository 08/23/2018 Drug gabapentin/F0060 edema [place] Allergy/416 49376(RXNORM) [facility] 606948([facility] ED CT) Repository 08/23/2018 Drug diltiazem/F67346 leg swelling [place] Allergy/416 4514(RXNORM) [place] [id number]([facility] ED CT) Repository ENCOUNTERS ENCOUNTERS ADMIT/DISCHARGE ACCOUNT ADMITTING ENCOUNTER LOCATION SOURCE NUMBER CLASS 09/26/2018 [id number] Ambulatory [place] 4 [facility] ing:MRI Repository 08/23/2018/ [id number] Ambulatory BMSBuilding:B [place] 8 1 [facility] Repository 08/15/2018 [id number] Ambulatory [place] 2 [facility]N Repository 08/14/2018 [id number] Amb[place] 3 [facility] ing:LAB Repository 07/11/2018 [id number] Ambulatory [place] 1 [facility] ing:PSN Repository 07/10/2018 [id number] Amb[place] 5 [facility] Hospital ing:[facility]S Repository 07/10/2018 [id number] Ambulatory BMSBuilding:W [place] 1 [facility] Hospital Repository 07/05/2018/ [id number] Emergency [place] 8 2 [facility] Hospital ing:ED Repository 06/15/2018/ [id number] Ajs, Ambulatory [place] 8 2 [address] Hospital ing:PCURoom: Repository [id number]: 1 06/15/2018 [id number] Lee, Ambulatory BMSBuilding:B [place] 8 [place] [facility] [place] Repository 06/15/2018 [id number] [place], Ambulatory BMSBuilding:B [place] 1 [place] Repository 06/15/2018/ [id number] Ambulatory BMSBuilding:W [place] 8 1 [facility] Hospital Repository 06/15/2018/ [id number] Ambulatory BMSBuilding:B [place] 8 5 [facility] Repository 06/15/2018 [id number] Ambulatory BMSBuilding:B [place] 0 [facility] Repository 06/14/2018/ [id number] Emergency [place] 8 5 [facility] Hospital ing:ED Repository 05/28/2018/ [id number] Ambulatory BMSBuilding:B [place] 8 4 [facility] Repository 05/28/2018 [id number] Ambulatory [place] 3 [facility] Hospital ing:EMPH Repository 05/22/2018 [id number] Ambulatory [place] 4 [facility] ing:MRI Repository 05/10/2018/ [id number] Ambulatory BMSBuilding:B [place] 8 7 [facility] Repository 04/25/2018/ [id number] Ambulatory [place] 8 4 [facility] ing:PT Repository 03/13/2018/ [id number] Ambulatory BMSBuilding:B [place] 8 9 [facility] Repository PAYERS PAYERS ENCOUNTER GUARANTOR PAYER SUBSCRIBER SOURCE 09/26/2018 DARWIN Kim Primary Insurance:[facility] DARWIN MartHemet Global Medical [id number] [facility]: [facility] [id number] [facility] [address]Goq: Number: Repository [id number] (HP) Date:9557-62-50CE [address] [address], [place] [address]GS: CHECK WEBSITE 09/26/2018 Secondary NOT GIVENUNK [place] Insurance:SELF PAY [facility] Number: Effective Repository Date:2018-09-19 08/23/2018 DARWIN Kim Primary Insurance:[facility] DARWIN Kim [facility] [facility]: [facility] [id number] [facility] [address]Lvm: Number: Repository [id number] (HP) Date:3564-21-00LZ [address] [address], [place] [address]PC: CHECK WEBSITE 08/23/2018 Secondary NOT GIVENUNK [place] Insurance:SELF PAY [facility] Number: Effective Repository Date:2018-08-22 08/15/2018 DARWIN Kim Primary Insurance:[facility] DARWIN Kim [place] [id number] [facility]: [facility] [id number] [facility] [address]Tip: Number: Repository [id number] (HP) Date:2508-29-18AA [address] [address], [place] [address]RY: CHECK WEBSITE 08/15/2018 Secondary NOT GIVENUNK [place] Insurance:SELF PAY [facility] Number: Effective Repository Date:2018-05-28 08/14/2018 DARWIN Kim Primary Insurance:[facility] DARWIN Kim [place] [id number] [facility]: [facility] [id number] [facility] [address]Dpa: Number: Repository [id number] (HP) Date:4204-59-55FK [address] [address], [place] [address]PP: CHECK WEBSITE 08/14/2018 Secondary NOT GIVENUNK [place] Insurance:SELF PAY [facility] Number: Effective Repository Date:2018-08-14 07/11/2018 DARWIN Kim Primary Insurance:[facility] DARWIN Kim [place] [id number] [facility]: [facility] [id number] [facility] [address]Rkg: Number: Repository [id number] (HP) Date:7234-12-42[address] [address], [place] [address]LC: CHECK WEBSITE 07/11/2018 Secondary NOT GIVENUNK [place] Insurance:SELF PAY [facility] Number: Effective Repository Date:2018-07-05 07/10/2018 DARWIN Kim Primary NOT GIVENUNK [place] [id number] Insurance:SELF PAY [facility] [address]Xih: Number: Effective Repository Date:2018-07-09 (HP) 07/10/2018 DARWIN Kim Primary Insurance:[facility] DARWIN [id number] [facility] [id number] [facility] [address]Wpf: Number: Repository [id number] (HP) Date:7402-08-00HN [address] [address]JAAQHWETL, [place] [address]VL: CHECK WEBSITE 07/10/2018 Secondary NOT GIVENUNK Narcisa Insurance:SELF PAY [facility] Number: Effective Repository Date:2018-07-10 07/05/2018 DARWIN Kim Primary Insurance:[facility] DARWIN Kim NarcisaHemet Global [facility] [id number] [facility] [id number] [facility] [address]Qjl: Number: Repository [id number] (HP) Date:2759-60-59HX [address] [address]WEWKLFJHOGerald [place] [address]WP: CHECK WEBSITE 07/05/2018 Secondary NOT GIVENUNK Narcisa Insurance:SELF PAY [facility] Number: Effective Repository Date:2018-07-05 06/15/2018 DARWIN Kim Primary Insurance:[facility]WIN [facility] [id number] [facility] [address]Joj: Number: Repository [id number] (HP) Date:5497-43-42GY [address] [address]BQXNMCCANGerald [place] [address]WP: CHECK WEBSITE 06/15/2018 Secondary NOT GIVENUNK [place] Insurance:SELF PAY [facility] Number: Effective Repository Date:2018-06-15 06/15/2018 DARWIN Kim Primary Insurance:[facility] DARWIN MartHemet Global Medical [id number] [facility] [id number] [facility] [address]Elw: Number: Repository [id number] (HP) Date:2199-32-43HL [address] [address]WGCNZAWBHGerald Ville [address]WP: CHECK WEBSITE 06/15/2018 Secondary NOT GIVENUNK [place] Insurance:SELF PAY [facility] Number: Effective Repository Date:2018-06-15 06/15/2018 DARWIN Kim Primary Insurance:[facility] DARWIN Martoster [id number] [facility]: [facility] [id number] [facility] [address]Qmj: Number: Repository [id number] (HP) Date:5080-88-81KM [address] [address]SCANANVRT, [place] [address]IE: CHECK WEBSITE 06/15/2018 Secondary NOT GIVENUNK [place] Insurance:SELF PAY [facility] Number: Effective Repository Date:2018-06-15 06/15/2018 DARWIN Kim Primary Insurance:[facility] DARWIN [facility] [facility]: [facility] [id number] [facility] [address]Sxh: Number: Repository [id number] (HP) Date:2475-40-97PF [address] [address]XUMFCSAQW, [place] [address]JM: CHECK WEBSITE 06/15/2018 Secondary NOT GIVENUNK Narcisa Insurance:SELF PAY [facility] Number: Effective Repository Date:2018-06-15 06/15/2018 DARWIN Kim Primary Insurance:[facility] DARWIN Kim [facility] [facility]: [facility] [id number] [facility] [address]Iax: Number: Repository [id number] (HP) Date:3349-77-85RS [address] [address]CIIEGRHOJ, [place] [address]VI: CHECK WEBSITE 06/15/2018 Secondary NOT GIVENUNK [place] Insurance:SELF PAY [facility] Number: Effective Repository Date:2018-06-15 06/15/2018 DARWIN Kim Primary Insurance:[facility] DARWIN Kim [facility] [facility]: [facility] [id number] [facility] [address]Zur: Number: Repository [id number] (HP) Date:9890-19-99KN [address] [address]QTMGGSTUF, [place] [address]BV: CHECK WEBSITE 06/15/2018 Secondary NOT GIVENUNK Narcisa Insurance:SELF PAY [facility] Number: Effective Repository Date:2018-06-15 06/14/2018 DARWIN Kim Primary Insurance:[facility] DARWIN M [facility] [facility] [id number] [place] [address]Tel: Number: Repository [id number] (HP) Date:7446-79-25DA [address] [address]AOUFQMWGG, [place] [address]JB: CHECK WEBSITE 06/14/2018 Secondary NOT GIVENUNK [place] Insurance:SELF PAY [facility] Number: Effective Repository Date:2018-06-14 05/28/2018 DARWIN Kim Primary Insurance:[facility] DARWIN [place] [id number] [facility]: [facility] [id number] Ville [address]Tel: Number: Repository [id number] (HP) Date:5767-74-95TC [address] [address]UQJRWETVF, [place] [address]RU: CHECK WEBSITE 05/28/2018 Secondary NOT GIVENUNK [place] Insurance:SELF PAY [facility] Number: Effective Repository Date:2018-05-28 05/28/2018 DARWIN Kim Primary NOT GIVENUNK [place] [id number] S Insurance:SELF PAY [place] [address]Tel: Number: Effective Repository Date:2018-05-28 (HP) 05/22/2018 DARWIN Kim Primary Insurance:[facility] DARWIN [place] [id number] [facility]: [facility] [id number] [place]ille [address]Tel: Number: Repository [id number] (HP) Date:2232-60-14AT [address] [address]XWWFZGJQB, [place] [address]LC: CHECK WEBSITE 05/22/2018 Secondary NOT GIVENUNK [place] Insurance:SELF PAY [facility] Number: Effective Repository Date:2018-05-17 05/10/2018 DARWIN Kim Primary Insurance:[facility] DARWIN Kim Narcisa [id number] [facility]: [facility] [id number] [facility] [address]Ide: Number: Repository [id number] (HP) Date:9964-22-05EH [address] [address]YVGAJTFGZ, [place] [address]NB: CHECK WEBSITE 05/10/2018 Secondary NOT GIVENUNK [place] Insurance:SELF PAY [facility] Number: Effective Repository Date:2018-05-10 04/25/2018 DARWIN Kim Primary Insurance:[place] [id number] [facility] [id number] [facility] [address]Wel: Number: Repository [id number] (HP) Date:1269-02-98AJ [address] [address]TAIISLRJY, [place] [address]GU: CHECK WEBSITE 04/25/2018 Secondary NOT GIVENUNK [place] Insurance:SELF PAY [facility] Number: Effective Repository Date:2018-03-13 03/13/2018 DARWIN Primary Insurance:[place] [id number] [facility] [id number] [facility] [address]Xoo: Number: Repository [id number] (HP) Date:4912-42-47TW [address] [address]EOJENIMHI, [place] [address]IP: CHECK WEBSITE 03/13/2018 Secondary NOT GIVENUNK Narcisa Insurance:SELF PAY [facility] Number: Effective Repository Date:2018-03-07
== END ==
PROVIDERS: Family Provider Family Medicine; PCP Family Medicine; Referring Provider Nurse Practitioner Acute Care; Visit Provider Nurse Practitioner Acute Care
DX: R20.0 Anesthesia of skin (principal); M79.605 Pain in left leg
CPT/HCPCS: 72146; 72148

== ENCOUNTER 2019-07-09 14:36 | Emergency (ER) | payer OTHER, SELFPAY ==
[2019-07-09 14:37] VITALS: TEMP 36.6; BMI 31.9
--- NOTE | 2019-07-09 14:43 | RAD_ITS ---
STUDY: X-RAY - LEFT HAND REASON FOR EXAM: Female, 54 years old. Pain of the fifth digit following injury. TECHNIQUE: 3 view(s) of the hand. COMPARISON: None. FINDINGS: Normal radiocarpal articulation. Normal distal radioulnar joint. Normal visualized carpal bones. Normal carpal articulations Normal carpometacarpal articulation of the thumb. Normal second through fifth carpometacarpal joints. Normal metacarpi. Normal metacarpophalangeal joint of the thumb. Normal interphalangeal joint of the thumb. Normal proximal and distal phalanges of the thumb. Normal metacarpophalangeal joints of the second through fifth fingers. Normal proximal and distal interphalangeal joints of the second through fifth fingers. Normal phalanges of the second through fifth fingers. The soft tissue structures are unremarkable. RAD/Hand Min 3 Views IMPRESSION: Normal x-ray examination of the hand. Electronically Signed: Robin Nobles, at 15:33 EDT , Service support ,
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
== END 2019-07-09 18:15 | disposition home or self-care (01) ==
PROVIDERS: Emergency Provider Emergency Medicine; Family Provider Family Medicine; PCP Family Medicine
DX: S60.222A Contusion of left hand, initial encounter (principal); S60.212A Contusion of left wrist, initial encounter; W50.1XXA Accidental kick by another person, initial encounter; Y93.89 Activity, other specified; Y92.230 Patient room in hospital as the place of occurrence of the external cause; Y99.0 Civilian activity done for income or pay
CPT/HCPCS: 73130; 99282

== ENCOUNTER → 2020-06-29 13:12 | Outpatient (CLI) | payer OTHER, SELFPAY ==
[2020-02-29 13:03] VITALS: BMI 32.3
[2020-06-30 07:20] LABS: SARS-COV-2 TOTAL ABS Nonreactive (Nonreactive)
== END ==
PROVIDERS: PCP Family Medicine; Referring Provider Family Medicine; Visit Provider Family Medicine
DX: Z11.59 Encounter for screening for other viral diseases (principal)
CPT/HCPCS: 36415; 86769

== ENCOUNTER → 2022-04-26 | Outpatient (CLI) | payer OTHER, SELFPAY ==
--- NOTE | 2022-04-26 14:11 | RAD_ITS ---
EXAM: XR CHEST, 2 VIEWS CLINICAL INDICATION: COVID + TECHNIQUE: Frontal and lateral views of the chest. This report was created using [employer] report generation technology. COMPARISON: 07/05/2018 FINDINGS: LUNGS AND PLEURAL SPACES: Short segment peripheral scarring or discoid atelectasis at the left lower lung. No pneumothorax. No effusion. HEART: Unremarkable. Cardiac silhouette not enlarged. MEDIASTINUM: Central airways and mediastinal contour are unremarkable. BONES/JOINTS: Degenerative changes of the spine. SOFT TISSUES: Unremarkable. VASCULATURE: Atherosclerosis calcifications along the thoracic aortic arch. RAD/Chest PA and Lateral IMPRESSION: No acute disease. Electronically Signed: Glenn Vieyra MD at 4:38 EDT ,
== END | disposition home or self-care (01) ==
PROVIDERS: PCP Family Medicine; Referring Provider Family Medicine; Visit Provider Family Medicine
DX: U07.1 COVID-19 (principal); R05.9 Cough, unspecified; R06.02 Shortness of breath
CPT/HCPCS: 71046

== ENCOUNTER 2023-06-21 16:08 | Emergency (ER) | payer OTHER, SELFPAY ==
[2023-06-21 16:10] VITALS: BP 134/93; PULSE 90; RESP 16; TEMP 36.3; O2SAT 98; BMI 31.8
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
[2023-06-21] MEDS: 0.9% Normal Saline (1000mL) 1,000 ML 1000 ML IV (16:31)
[2023-06-21] MEDS: Ondansetron 4 MG/2 ML Vial IV (16:31)
[2023-06-21] MEDS: Ketorolac 30 MG/ML Syringe IV (16:32)
[2023-06-21 16:42] LABS: Absolute Lymphocyte Count 2.71 X10^3/uL (0.83-4.51); Absolute Neutrophil Count 3.4 X10^3/uL (2.0-7.7); Basophil# 0.08 X10^3/uL; Basophil% 1.2 % (0-1); Eosinophil# 0.11 X10^3/uL; Eosinophils% 1.6 % (0-5); Hematocrit 45.4 % (37-47); Hemoglobin 14.9 g/dL (12.0-15.0); Lymphocyte # 2.71 X10^3/ul (0.83-4.51); Lymphocyte % 39.9 % (19-41); Mean Corp Hgb Conc 32.8 g/dL (32-36); Mean Corpuscular Hgb 31.4 pg (27.0-32.0); Mean Corpuscular Volume 95.6 fL (81-99); Mean Platelet Vol. 9.1 fl (6.2-12.0); Monocyte# 0.51 X10^3/uL; Monocyte% 7.5 % (0-10); NRBC Flagged by Analyzer 0 % (0-5); Neutrophil # 3.37 X10^3/uL (2.7-7.7); Neutrophil % 49.7 % (47-70); Platelet Count 319 K/mm3 (150-450); RBC Distribution Width CV 12.6 % (11.6-14.6); RBC Distribution Width SD 44.2 fl (35.1-43.9); Red Blood Count 4.75 M/mm3 (4.2-5.4); White Blood Count 6.8 K/mm3 (4.4-11.0)
[2023-06-21 16:59] LABS: AST(SGOT) 9 U/L (15-37); Alanine Aminotransfer ALT/SGPT 28 U/L (13-56); Albumin, Serum 3.4 g/dL (3.2-5.0); Alkaline Phosphatase 85 U/L (45-117); Anion Gap 3 (5-15); BUN 13 mg/dL (7-18); BUN/Creat Ratio 19.7 RATIO (10-20); Bilirubin, Direct 0.07 mg/dL (0.00-0.30); Chloride 112 mmol/L (98-107); Creatinine, Serum 0.66 mg/dL (0.55-1.02); EST Glomerular Filtration Rate 98 mL/min (>60); Est Glom Filt Rate - Afr Amer 118 mL/min (>60); Estimated Creatinine Clearance 86.98 ml/min; Glucose 120 mg/dL (74-106); Potassium 3.6 mmol/L (3.5-5.1); Protein, Total 7.4 g/dL (6.4-8.2); Sodium Level 141 mmol/L (136-145)
[2023-06-21] MEDS: Metoclopramide 10 MG/2 ML Vial 5 MG IV (17:18)
[2023-06-21] MEDS: 0.9% Normal Saline (1000mL) 1,000 ML 150 ML IV (17:21)
[2023-06-21 17:43] LABS: Bacteria 0 SEEN /hpf (None Seen); Mucous, Urine 0 SEEN /hpf (<or=2+); Red Blood Cells-Urine 0 SEEN /hpf (0-5); White Blood Cells 0 SEEN /hpf (0-5)
[2023-06-21 18:12] LABS: Color, Urine Yellow (Yellow); Glucose, Dipstick Normal (Normal); Ketone-Dipstick Negative (Negative); Leukocyte Esterase-Dipstick 25 /ul (Negative); Nitrite-Dipstick Negative (Negative); Occult Blood-Urine 10 /ul (Negative); Protein-Dipstick 15 mg/dl (Negative); Urine Bilirubin Dipstick Negative (Negative); Urine Clarity Clear (Clear); Urine Urobilinogen Normal (Normal)
[2023-06-21 18:27] LABS: Calcium Oxalate Crystals Ur 2+ /hpf (<or=2+); Squamous Epithelial Cells - UA 0-5 SEEN /hpf (5-10)
[2023-06-21 19:29] VITALS: BP 129/70; PULSE 64; RESP 18; O2SAT 98
== END 2023-06-21 20:18 | disposition home or self-care (01) ==
PROVIDERS: Emergency Provider Emergency Medicine; PCP Family Medicine; Visit Provider Emergency Medicine
DX: A08.4 Viral intestinal infection, unspecified (principal); G43.909 Migraine, unspecified, not intractable, without status migrainosus; F17.210 Nicotine dependence, cigarettes, uncomplicated
CPT/HCPCS: 80048; 80076; 81001; 85025; 96361; 96374; 96375; 99282; J7030; A4216; J2405

== ENCOUNTER 2023-12-14 12:46 | Emergency (ER) | payer OTHER, SELFPAY ==
[2023-12-14 12:49] VITALS: BP 122/63; PULSE 69; RESP 16; TEMP 36.8; O2SAT 94
--- NOTE | 2023-12-14 12:51 | EX.ED.DYSGE1 ---
HPI History of Present Illness Chief Complaint: Abscess Detail of Chief Complaint: Dental infection Informant: patient Narrative Narrative: Patient presents secondary to left lower dental infection with facial swelling. She reports that 2 of her teeth have broken approximately a year ago when she bit down hard on something. It did not start bothering her until just a few days ago. Today she noted some swelling along her jawline. No fever noted. [facility] Medical History Chest pain Family history of ischemic heart disease History of eating disorder History of insomnia Hyperlipidemia Migraine Rheumatoid arthritis Tobacco dependence Home Medications albuterol sulfate 90 mcg/actuation aerosol inhaler 1 - 2 puff Inhalation Q4H PRN PRN Asthma 05/01/14 [History Last Taken 05/09/14 10:00] ibuprofen 200 mg tablet 200 mg PO Q6H PRN PRN Pain 03/22/17 [History Last Taken 06/15/18 10:00] aspirin 81 mg chewable tablet 81 mg PO DAILY@0800 ##30 06/14/18 [Rx Last Taken 06/14/18 19:00] meloxicam 15 mg tablet 13 mg PO DAILY 06/14/18 [History Last Taken 06/15/18 08:00] ondansetron 4 mg disintegrating tablet 4 mg PO Q8H PRN PRN Nausea #10 tabs 06/14/18 [Rx Last Taken Unknown] atorvastatin 20 mg tablet 20 mg PO DAILY #30 tabs 06/15/18 [Rx Last Taken Unknown] hydrochlorothiazide 25 mg tablet 12.5 mg PO PRN PRN swelling 06/15/18 [History Last Taken 06/15/18 08:00] propranolol 80 mg capsule,24 hr,extended release (Inderal LA) 80 mg PO DAILY #30 caps 06/15/18 [Rx Last Taken Unknown] digoxin 250 mcg (0.25 mg) tablet 0.25 mg PO DAILY #30 tabs 07/19/18 [Rx Last Taken Unknown] potassium chloride 10 mEq tablet,extended release 10 meq PO DAILY #30 tabs 07/19/18 [Rx Last Taken Unknown] promethazine 25 mg tablet 25 mg PO Q6H PRN nausea and vomiting #20 tabs 06/21/23 [Rx Last Taken Unknown] sumatriptan succinate 6 mg/0.5 mL subcutaneous pen injector 6 mg (0.5 mL) subcut X1 PRN migraine headache #1 mL 06/21/23 [Rx Last Taken Unknown] clindamycin HCl 150 mg capsule 300 mg (2 x 150 mg) PO 4X/DAY #80 CAPSULES 12/14/23 [Rx Last Taken Unknown] hydrocodone-acetaminophen 5-325mg 5mg-325mg 1 tab PO Q6H PRN PRN Pain 3 days #10 TABLETS 12/14/23 [Rx Last Taken Unknown] Allergy/AdvReac Type Severity Reaction Status Date / Time oxycodone HCl [From Percocet] Allergy Severe Anaphylaxis Verified 12/14/23 12:47 diltiazem AdvReac Intermediate Leg Verified 12/14/23 12:47 swelling gabapentin [From Horizant] AdvReac Intermediate Edema Verified 12/14/23 12:47 Family History Mother Breast cancer Grandmother Breast cancer Other Heart disease Hypertension Isela Gehrigs disease Myocardial infarction Surgical History History of back surgery History of section History of cholecystectomy history of coccyx removal History of foot surgery History of left heart catheterization (~06/15/18) History of lumpectomy of right breast History of rotator cuff surgery history of wrist surgery Hx of left knee surgery 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 Social History Smoking Status: Current every day smoker tobacco type: cigarettes alcohol intake: never substance use type: does not use ROS ROS ED Constitutional Constitutional ED: Denies chills or fever(s) Eyes Eyes: Denies discharge from eye(s) ENT ENT ED: Reports other Details: Left lower dental pain ; Denies discharge from eye(s), rhinorrhea or sore throat Cardiovascular Cardiovascular: Denies chest pain or palpitations Respiratory/Chest Respiratory/Chest: Denies cough or dyspnea Gastrointestinal Gastrointestinal: Denies abdominal pain, nausea or vomiting Musculoskeletal Musculoskeletal: Denies back pain or extremity pain Integumentary Denies Abrasions or rash Neurologic Neurologic: Denies headache(s) or weakness Allergic/Immunologic Allergic/Immunologic ED: Denies lip swelling or urticaria EXAM Physical Exam Const Vital Signs: 12/14/23 12:49 Temperature 98.2 F Temperature Source Temporal Pulse Rate 69 Respiratory Rate 16 Blood Pressure 122/63 H Blood Pressure Mean 82 Pulse Ox 94 Oxygen Delivery Method Room Air Positive well nourished and well developed General Appearance ED: well developed HEENT Reports moist mucous membranes HEENT Narrative: Facial examination reveals very mild edema along the left mandible. No overlying erythema or skin change. Left mandibular first and second molars decayed with mild surrounding gum edema. No trismus. Posterior pharynx exam unremarkable. No evidence of Lauro's angina. Eyes EOMs intact bilaterally Chest Wall inspection of chest normal Resp normal respiratory effort Cardio regular rate and regular rhythm GI non-tender Palpation: soft Extremity normal to inspection Psych mental status grossly normal MDM MDM MDM Narrative Medical decision making narrative: Patient is currently using Tylenol ibuprofen regularly without improvement of her symptoms. She began a prescription for clindamycin as well as a short course of [place] for breakthrough pain. Discharge Plan Triage Chief Complaint: Abscess Other Complaint: Dental ED Provider: Sol Shirley Dx/Rx/DC Orders Clinical Impression: Dental abscess Instructions: Dental Abscess Prescriptions: New clindamycin HCl 150 mg capsule 300 mg PO 4X/DAY Qty: 80 0RF hydrocodone-acetaminophen 5-325 mg tablet 1 tab PO Q6H PRN PRN (Reason: Pain) 3 Days Qty: 10 0RF No Action atorvastatin 20 mg tablet 20 mg PO DAILY Qty: 30 11RF propranolol [Inderal LA] 80 mg capsule,extended release 24 hr 80 mg PO DAILY Qty: 30 11RF albuterol sulfate 1 INHALER inhaler 1 - 2 puff Inhalation Q4H PRN PRN (Reason: Asthma) ibuprofen 200 MG tablet 200 mg PO Q6H PRN PRN (Reason: Pain) hydrochlorothiazide 25 mg tablet 12.5 mg PO PRN PRN (Reason: swelling) Patient Comments: 12.5 mg PO daily for edema; Rx Instructions: 12.5 mg PO daily for edema; meloxicam 15 MG tablet 13 mg PO DAILY ondansetron 4 MG tablet 4 mg PO Q8H PRN PRN (Reason: Nausea) Qty: 10 0RF aspirin 81 MG tablet,chewable 81 mg PO DAILY@0800 Qty: 30 0RF promethazine 25 mg tablet 25 mg PO Q6H PRN (Reason: nausea and vomiting) Qty: 20 0RF sumatriptan succinate 6 mg/0.5 mL pen injector 6 mg subcut X1 PRN (Reason: migraine headache) Qty: 1 0RF potassium chloride 10 mEq tablet extended release 10 meq PO DAILY Qty: 30 11RF digoxin 250 mcg tablet 0.25 mg PO DAILY Qty: 30 11RF Primary Care Provider: Leidy Crawford Referrals: Leidy Crawford DO [Primary Care Provider] - Disposition Disposition: Home, Self Care Discharge Date/Time: 12/14/23 13:06
== END 2023-12-14 13:06 | disposition home or self-care (01) ==
LOC: ED 12:58
PROVIDERS: Emergency Provider Emergency Medicine; PCP Family Medicine; Visit Provider Emergency Medicine
DX: K04.7 Periapical abscess without sinus (principal); F17.210 Nicotine dependence, cigarettes, uncomplicated
CPT/HCPCS: 99285

== ENCOUNTER 2023-12-16 10:28 | Emergency (ER) | payer OTHER, SELFPAY ==
[2023-12-16 10:28] VITALS: BP 179/78; PULSE 75; RESP 20; TEMP 37.2; O2SAT 99
--- NOTE | 2023-12-16 10:48 | EDS_ITS ---
HPI History of Present Illness Chief Complaint: Abscess Informant: patient Onset/Context/Timing Onset: Days Context: Gradual Onset Timing: Continuous Quality: Aching, throbbing Location: Left lower molars Worsened by: Chewing, swallowing Relieved by: [place] Narrative Narrative: Patient presents with dental infection that has been getting worse over the past several days. Patient states that she was recently started on clindamycin for her dental infection. Patient states the pain and swelling is still getting worse. Patient admits to some sweats but denies any specific fevers or chills. Patient states her pain is aching and throbbing. Patient states it is worse with swallowing and chewing. Patient states that she has been taking Tylenol and ibuprofen with minimal relief. Patient states she was also recently prescribed [place] and took 1 dose last night which helped. [facility] Medical History Chest pain Family history of ischemic heart disease History of eating disorder History of insomnia Hyperlipidemia Migraine Rheumatoid arthritis Tobacco dependence Home Medications albuterol sulfate 90 mcg/actuation aerosol inhaler 1 - 2 puff Inhalation Q4H PRN PRN Asthma 05/01/14 [History Last Taken 05/09/14 10:00] ibuprofen 200 mg tablet 200 mg PO Q6H PRN PRN Pain 03/22/17 [History Last Taken 06/15/18 10:00] aspirin 81 mg chewable tablet 81 mg PO DAILY@0800 ##30 06/14/18 [Rx Last Taken 06/14/18 19:00] meloxicam 15 mg tablet 13 mg PO DAILY 06/14/18 [History Last Taken 06/15/18 08:00] ondansetron 4 mg disintegrating tablet 4 mg PO Q8H PRN PRN Nausea #10 tabs 06/14/18 [Rx Last Taken Unknown] atorvastatin 20 mg tablet 20 mg PO DAILY #30 tabs 06/15/18 [Rx Last Taken Unknow n] hydrochlorothiazide 25 mg tablet 12.5 mg PO PRN PRN swelling 06/15/18 [History Last Taken 06/15/18 08:00] propranolol 80 mg capsule,24 hr,extended release (Inderal LA) 80 mg PO DAILY #30 caps 06/15/18 [Rx Last Taken Unknown] digoxin 250 mcg (0.25 mg) tablet 0.25 mg PO DAILY #30 tabs 07/19/18 [Rx Last Taken Unknown] potassium chloride 10 mEq tablet,extended release 10 meq PO DAILY #30 tabs 07/19 [Rx Last Taken Unknown] promethazine 25 mg tablet 25 mg PO Q6H PRN nausea and vomiting #20 tabs 06/21/23 [Rx Last Taken Unknown] sumatriptan succinate 6 mg/0.5 mL subcutaneous pen injector 6 mg (0.5 mL) subcut X1 PRN migraine headache #1 mL 06/21/23 [Rx Last Taken Unknown] hydrocodone-acetaminophen 5-325mg 5mg-325mg 1 tab PO Q6H PRN PRN Pain 3 days #10 TABLETS 12/14/23 [Rx Last Taken Unknown] amoxicillin 875 mg-potassium clavulanate 125 mg tablet 875 mg (0.875 x 875-125 mg) PO Q12H #20 TABLETS 12/16/23 [Rx Last Taken Unknown] Allergy/AdvReac Type Severity Reaction Status Date / Time oxycodone HCl [From Percocet] Allergy Severe Anaphylaxis Verified 12/16/23 10:28 diltiazem AdvReac Intermediate Leg Verified 12/16/23 10:28 swelling gabapentin [From Horizant] AdvReac Intermediate Edema Verified 12/16/23 10:28 Family History Mother Breast cancer Grandmother Breast cancer Other Heart disease Hypertension Isela Gehrigs disease Myocardial infarction Surgical History History of back surgery History of section History of cholecystectomy history of coccyx removal History of foot surgery History of left heart catheterization (~06/15/18) History of lumpectomy of right breast History of rotator cuff surgery history of wrist surgery Hx of left knee surgery 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 Social History Smoking Status: Current every day smoker tobacco type: cigarettes alcohol intake: never substance use type: does not use ROS ROS ED Constitutional Constitutional ED: Reports sweats; Denies chills or fever(s) Eyes Eyes: Denies blurry vision or change in vision ENT ENT ED: Denies rhinorrhea or sore throat Cardiovascular Cardiovascular: Denies chest pain or palpitations Respiratory/Chest Respiratory/Chest: Denies cough or dyspnea Gastrointestinal Gastrointestinal: Reports nausea; Denies vomiting Genitourinary Genitourinary ED: Denies dysuria or hematuria Musculoskeletal Musculoskeletal: Denies back pain or neck pain Integumentary Denies rash Neurologic Neurologic: Reports headache(s); Denies weakness Allergic/Immunologic Allergic/Immunologic ED: Denies mouth swelling or urticaria EXAM Physical Exam Const Vital Signs: 12/16/23 10:28 12/16/23 11:28 Temperature 99 F Temperature Source Temporal Pulse Rate 75 57 L Respiratory Rate 20 H 18 Blood Pressure 179/78 H 174/80 H Blood Pressure Mean 111 111 Pulse Ox 99 95 Oxygen Delivery Method Room Air Room Air Positive well nourished and well developed General Appearance ED: well developed and NAD HEENT Reports moist mucous membranes HEENT Narrative: There is a large dental carry noted over the left lower first molar. There is gingival edema around this tooth. There is tenderness to percussion over this tooth. Oral mucosa is pink and moist. Oropharynx is clear. Airway is patent. Neck is supple. Trachea is midline. There is no JVD. There is no sublingual edema. There is no evidence of Lauro's angina. Neck supple and no JVD General: tenderness Extremity normal to inspection Neuro oriented x3, CN's II-XII intact bilaterally and no sensory deficits noted Sensorium / Orientation: alert Motor Exam: strength 5/5 throughout Psych mental status grossly normal MDM MDM MDM Narrative Medical decision making narrative: Differential diagnosis includes dental abscess, infected dental caries, and electrolyte abnormality. CBC will be obtained to assess for leukocytosis and anemia. Basic metabolic profile will be obtained to assess for electrolyte abnormality and renal function. Lab Data Attestation: I reviewed the patient's lab results. Lab results narrative: CBC was reviewed and was within normal limits. Basic metabolic profile was reviewed and was within normal limits. Labs: Laboratory Results - last 24 hr 12/16/23 10:47 WBC 5.2 RBC 4.21 Hgb 13.2 Hct 39.6 MCV 94.1 MCH 31.4 MCHC 33.3 RDW Std Deviation 43.1 RDW Coeff of Sebastien 12.5 Plt Count 266 MPV 9.4 Immature Gran % (Auto) 0.200 Neut % (Auto) 53.0 Lymph % (Auto) 35.5 [place] % (Auto) 8.8 Eos % (Auto) 1.9 Baso % (Auto) 0.6 Absolute Neuts (auto) 2.8 Absolute Lymphs (auto) 1.86 Nucleated RBC % 0 Sodium 140 Potassium 3.9 Chloride 111 H Carbon Dioxide 25.0 Anion Gap 4 L BUN 13 Creatinine 0.64 Estim Creat Clear Calc 111.96 Est GFR (MDRD) Af Amer 123 Est GFR (MDRD) Non-Af 102 BUN/Creatinine Ratio 20.4 H Glucose 98 Calcium 8.7 Treatment and Re-Evaluation :: Patient was given a dose of Unasyn here. Patient was given a dose of morphine and Zofran. Patient is feeling better on reevaluation. Patient was instructed to stop taking the clindamycin. Patient was given a prescription for Augmentin. Patient was instructed to follow-up with her dentist in 5 to 7 days. Patient was instructed return if worse in any way. Patient understood and was agreeable with the plan. All questions were answered. Discharge Plan Triage Chief Complaint: Abscess ED Provider: Panda Young Dx/Rx/DC Orders Clinical Impression: Dental abscess, Hyperlipidemia Instructions: ED Dental Abscess Prescriptions: New amoxicillin-pot clavulanate [amoxicillin-pot clavulanate] 875-125 mg tablet 875 mg PO Q12H Qty: 20 0RF Discontinued clindamycin HCl 150 mg capsule 300 mg PO 4X/DAY Qty: 80 0RF No Action atorvastatin 20 mg tablet 20 mg PO DAILY Qty: 30 11RF propranolol [Inderal LA] 80 mg capsule,extended release 24 hr 80 mg PO DAILY Qty: 30 11RF albuterol sulfate 1 INHALER inhaler 1 - 2 puff Inhalation Q4H PRN PRN (Reason: Asthma) ibuprofen 200 MG tablet 200 mg PO Q6H PRN PRN (Reason: Pain) hydrochlorothiazide 25 mg tablet 12.5 mg PO PRN PRN (Reason: swelling) Patient Comments: 12.5 mg PO daily for edema; Rx Instructions: 12.5 mg PO daily for edema; meloxicam 15 MG tablet 13 mg PO DAILY ondansetron 4 MG tablet 4 mg PO Q8H PRN PRN (Reason: Nausea) Qty: 10 0RF aspirin 81 MG tablet,chewable 81 mg PO DAILY@0800 Qty: 30 0RF promethazine 25 mg tablet 25 mg PO Q6H PRN (Reason: nausea and vomiting) Qty: 20 0RF sumatriptan succinate 6 mg/0.5 mL pen injector 6 mg subcut X1 PRN (Reason: migraine headache) Qty: 1 0RF hydrocodone-acetaminophen 5-325 mg tablet 1 tab PO Q6H PRN PRN (Reason: Pain) 3 Days Qty: 10 0RF potassium chloride 10 mEq tablet extended release 10 meq PO DAILY Qty: 30 11RF digoxin 250 mcg tablet 0.25 mg PO DAILY Qty: 30 11RF Primary Care Provider: Leidy Crawford Referrals: Leidy Crawford DO [Primary Care Provider] - Dentist,Your [STAFF PHYSICIAN] - 5-7 Days Disposition Disposition: Home, Self Care
[2023-12-16] MEDS: Morphine 4 MG/ML Syringe IV (10:56)
[2023-12-16] MEDS: Ondansetron 4 MG/2 ML Vial IV (10:56)
[2023-12-16] MEDS: Ampicillin/Sulbactam 3 GM in 0.9% Normal Saline (100mL MB+) 100 ML IV (10:58)
[2023-12-16 11:00] LABS: Absolute Lymphocyte Count 1.86 X10^3/uL (0.83-4.51); Absolute Neutrophil Count 2.8 X10^3/uL (2.0-7.7); Basophil# 0.03 X10^3/uL; Basophil% 0.6 % (0-1); Eosinophils% 1.9 % (0-5); Hematocrit 39.6 % (37-47); Hemoglobin 13.2 g/dL (12.0-15.0); Lymphocyte # 1.86 X10^3/ul (0.83-4.51); Lymphocyte % 35.5 % (19-41); Mean Corp Hgb Conc 33.3 g/dL (32-36); Mean Corpuscular Hgb 31.4 pg (27.0-32.0); Mean Corpuscular Volume 94.1 fL (81-99); Mean Platelet Vol. 9.4 fl (6.2-12.0); Monocyte# 0.46 X10^3/uL; Monocyte% 8.8 % (0-10); NRBC Flagged by Analyzer 0 % (0-5); Neutrophil # 2.78 X10^3/uL (2.7-7.7); Platelet Count 266 K/mm3 (150-450); RBC Distribution Width CV 12.5 % (11.6-14.6); RBC Distribution Width SD 43.1 fl (35.1-43.9); Red Blood Count 4.21 M/mm3 (4.2-5.4); White Blood Count 5.2 K/mm3 (4.4-11.0)
[2023-12-16 11:06] VITALS: BMI 34.2
[2023-12-16 11:08] LABS: Anion Gap 4 (5-15); BUN 13 mg/dL (7-18); BUN/Creat Ratio 20.4 RATIO (10-20); Calcium,Total 8.7 mg/dL (8.5-10.1); Chloride 111 mmol/L (98-107); Creatinine, Serum 0.64 mg/dL (0.55-1.02); EST Glomerular Filtration Rate 102 mL/min (>60); Est Glom Filt Rate - Afr Amer 123 mL/min (>60); Estimated Creatinine Clearance 111.96 ml/min; Glucose 98 mg/dL (74-106); Potassium 3.9 mmol/L (3.5-5.1); Sodium Level 140 mmol/L (136-145)
[2023-12-16 11:28] VITALS: BP 174/80; PULSE 57; RESP 18; O2SAT 95
[2023-12-16 12:00] VITALS: BP 154/62; PULSE 55; RESP 16; TEMP 36.6; O2SAT 97
== END 2023-12-16 12:20 | disposition home or self-care (01) ==
PROVIDERS: Emergency Provider Emergency Medicine; PCP Family Medicine; Visit Provider Emergency Medicine
DX: K04.7 Periapical abscess without sinus (principal); E78.5 Hyperlipidemia, unspecified; F17.210 Nicotine dependence, cigarettes, uncomplicated
CPT/HCPCS: 80048; 85025; 96365; 96375; 99284; J7050; A4216; J0295; J2405

== ENCOUNTER 2023-12-17 12:55 | Emergency (ER) | payer OTHER, SELFPAY ==
[2023-12-17 12:56] VITALS: BP 166/75; PULSE 75; RESP 18; TEMP 36; O2SAT 94; BMI 32.4
--- NOTE | 2023-12-17 13:32 | ED.VIS.DENTA ---
HPI History of Present Illness Chief Complaint: Dental Detail of Chief Complaint: Left lower jaw dental pain with infection and swelling. Informant: patient Onset/Context/Timing Onset: Days Context: Gradual Onset Timing: Continuous Current Severity: Moderate Maximum Severity: Moderate Relieved by: NSAIDs Associated Symptoms Assocated Symptom - Dental: jaw swelling; Negative for fever Narrative Narrative: 58-year-old female who has had dental pain for about 4 to 5 days. And started having swelling. She was seen in emergency department within the last couple of days. Diagnosed with a dental infection. She knows she has an eroded tooth there but she had a bad experience in the past with a dentist and tries to avoid the dentist if at all possible. She initially was started on clindamycin which she got worse and was switched to Augmentin and was given a dose of IV Unasyn the other day in the emergency department. She denies any trouble swallowing or breathing. Prior similar symptoms: Yes Recent Illness/Hospitalization: No PFSH PFSH Medical History Chest pain Family history of ischemic heart disease History of eating disorder History of insomnia Hyperlipidemia Migraine Rheumatoid arthritis Tobacco dependence Home Medications albuterol sulfate 90 mcg/actuation aerosol inhaler 1 - 2 puff Inhalation Q4H PRN PRN Asthma 05/01/14 [History Last Taken 05/09/14 10:00] ibuprofen 200 mg tablet 200 mg PO Q6H PRN PRN Pain 03/22/17 [History Last Taken 06/15/18 10:00] aspirin 81 mg chewable tablet 81 mg PO DAILY@0800 ##30 06/14/18 [Rx Last Taken 06/14/18 19:00] meloxicam 15 mg tablet 13 mg PO DAILY 06/14/18 [History Last Taken 06/15/18 08:00] ondansetron 4 mg disintegrating tablet 4 mg PO Q8H PRN PRN Nausea #10 tabs 06/14/18 [Rx Last Taken Unknown] atorvastatin 20 mg tablet 20 mg PO DAILY #30 tabs 06/15/18 [Rx Last Taken Unknown] hydrochlorothiazide 25 mg tablet 12.5 mg PO PRN PRN swelling 06/15/18 [History Last Taken 06/15/18 08:00] propranolol 80 mg capsule,24 hr,extended release (Inderal LA) 80 mg PO DAILY #30 caps 06/15/18 [Rx Last Taken Unknown] digoxin 250 mcg (0.25 mg) tablet 0.25 mg PO DAILY #30 tabs 07/19/18 [Rx Last Taken Unknown] potassium chloride 10 mEq tablet,extended release 10 meq PO DAILY #30 tabs 07/19/18 [Rx Last Taken Unknown] promethazine 25 mg tablet 25 mg PO Q6H PRN nausea and vomiting #20 tabs 06/21/23 [Rx Last Taken Unknown] sumatriptan succinate 6 mg/0.5 mL subcutaneous pen injector 6 mg (0.5 mL) subcut X1 PRN migraine headache #1 mL 06/21/23 [Rx Last Taken Unknown] hydrocodone-acetaminophen 5-325mg 5mg-325mg 1 tab PO Q6H PRN PRN Pain 3 days #10 TABLETS 12/14/23 [Rx Last Taken Unknown] amoxicillin 875 mg-potassium clavulanate 125 mg tablet 875 mg (0.875 x 875-125 mg) PO Q12H #20 TABLETS 12/16/23 [Rx Last Taken Unknown] Allergy/AdvReac Type Severity Reaction Status Date / Time oxycodone HCl [From Percocet] Allergy Severe Anaphylaxis Verified 12/16/23 10:28 diltiazem AdvReac Intermediate Leg Verified 12/16/23 10:28 swelling gabapentin [From Horizant] AdvReac Intermediate Edema Verified 12/16/23 10:28 Family History Mother Breast cancer Grandmother Breast cancer Other Heart disease Hypertension Isela Gehrigs disease Myocardial infarction Surgical History History of back surgery History of section History of cholecystectomy history of coccyx removal History of foot surgery History of left heart catheterization (~06/15/18) History of lumpectomy of right breast History of rotator cuff surgery history of wrist surgery Hx of left knee surgery 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 Dental pain. Dental swelling.Nausea and vomiting. Review of Systems ROS Unobtainable: Denies due to encephalopathy Constitutional Constitutional ED: Denies chills or fever(s) Eyes Eyes: Denies blurry vision ENT ENT ED: Denies ear pain Cardiovascular Cardiovascular: Denies chest pain or palpitations Respiratory/Chest Respiratory/Chest: Denies cough or dyspnea Gastrointestinal Gastrointestinal: Reports nausea and vomiting; Denies abdominal pain Genitourinary Genitourinary ED: Denies dysuria or hematuria Musculoskeletal Musculoskeletal: Denies arthralgias or back pain Integumentary Denies abscess or Abrasions Neurologic Neurologic: Denies headache(s) or paresthesias Psychiatric Psychiatric: Denies suicidal thoughts Endocrine Endocrinology: Denies cold intolerance Hematologic/Lymphatic Hematologic/Lymphatic: Denies easy bleeding or easy bruising Allergic/Immunologic Allergic/Immunologic ED: Reports mouth swelling; Denies tongue swelling EXAM Physical Exam Narrative Exam Narrative: Well-appearing 58-year-old female. Vital signs stable afebrile. H EENT exam pupils round reactive light. Posterior pharynx unremarkable. Moist mucous membranes. No trouble swallowing or breathing. She has significantly eroded left lower premolar that is tender. She has lost about half the tooth. There is some mild gingival swelling but no ballotable abscess or anything is drainable. She has no trismus. She can open close her mouth and a difficulty. The floor of her tongue is unremarkable. Neck nontender no lymphadenopathy. Lungs clear to auscultation. Heart regular rhythm no murmur. Abdomen soft nontender. Moving all 4 extremities. Nontender no edema. Neurologically she is awake and alert with no focal motor deficits. Const Vital Signs: 12/17/23 12:56 12/17/23 14:18 12/17/23 14:58 Temperature 96.8 F L 97.2 F L Temperature Source Temporal Temporal Pulse Rate 75 59 L Respiratory Rate 18 16 16 Blood Pressure 166/75 H 152/72 H Blood Pressure Mean 105 98 Pulse Ox 94 95 99 Oxygen Delivery Method Room Air Room Air Room Air 12/17/23 15:59 12/17/23 18:59 Temperature 97.3 F L Temperature Source Temporal Pulse Rate 55 L 56 L Respiratory Rate 19 H Blood Pressure 128/67 H 152/82 H Blood Pressure Mean 87 105 Pulse Ox 97 94 Oxygen Delivery Method Room Air Positive well nourished and well developed; Negative for obese, cachectic, contractures or unkempt General Appearance ED: well developed and NAD; Negative for unkempt, cachectic or contractures Nutritional Appearance: Negative for cachectic or obese HEENT HEENT Narrative: Left lower premolar. Decayed. Gingival swelling. No drainable abscess. No trismus. Negative for trauma or tenderness Face and Sinus: Negative for sinuses nontender Mouth ED: Yes lips normal, Yes tongue normal and Yes salivary gland normal Mouth: lips normal, tongue normal and salivary gland normal Teeth and Gingiva: abnormal tooth and associated gingiva and gingiva abnormal Throat: posterior oropharynx normal Eyes PERRL and EOMs intact bilaterally General Eye ED: Negative for pale conjunctiva or scleral icterus Neck no lymphadenopathy, supple and no JVD General: normal visual inspection; Negative for anterior neck swelling, tenderness or submandibular swelling Lymph Lymphatic: no lymphadenopathy noted; Negative for other Chest Wall inspection of chest normal and palpation of chest normal Chest: Negative for other Resp normal respiratory effort, no retractions and clear to auscultation bilaterally Effort and Inspection: Negative for other Cardio regular rate, regular rhythm, S1 normal heart sound, S2 normal heart sound and no murmurs Jugular Venous Distention: Negative for other Palpation: Negative for palpable S3 or palpable S4 Rate: Negative for bradycardia or tachycardic Rhythm: Negative for abnormal rhythm GI normal to inspection, nondistended, normoactive bowel sounds, non-tender and non-distended Palpation: soft Back/Spine no CVA tenderness General Back: Negative for CVA tenderness Cervical Spine: Negative for other Extremity normal to inspection and no joint enlargement General Extremety ED: Negative for edema or other findings General Extremity: Negative for edema or other findings Neuro oriented x3, CN's II-XII intact bilaterally, moves all extremities and no focal motor deficits Sensorium / Orientation: alert, oriented to person, oriented to place and oriented to time; Negative for orientation impaired Gait (Neuro): Negative for normal gait Motor Exam: strength 5/5 throughout; Negative for general weakness or strength abnormal Psych mental status grossly normal Appearance: Negative for unkempt Skin no rashes or lesions noted and no wounds Image ED - URI/Dental Diagram: 1. Left lower premolar erosion. Tenderness and soft tissue swelling. No drainable abscess. No trismus. 2. Left lower jaw localized swelling. MDM MDM MDM Narrative Medical decision making narrative: Patient will be treated with IV Unasyn which she has received before. Toradol morphine for pain. Zofran for nausea. Outpatient referral to a dentist. Patient doing well at repeat exam at 2:00 and also at 3:10 PM. She received a second dose of IV Unasyn and be discharged home outpatient follow-up with a dentist. She has prescriptions for antibiotics and nausea medication and pain medication at home. They may set her up for outpatient IV antibiotics to help get this under control. She does not require admission at this time. There is nothing to drain at this time. Repeat exam patient doing well at 8:50 PM. Feeling better. Pain is much improved. She is comfortable being discharged home. Outpatient follow-up with a dentist. Continue her p.o. Augmentin or if need be IV antibiotics. History & Record Review Discussion w/independent historian: Patient Additional record(s) reviewed:: Prior inpatient record, Prior outpatient record, Prior ED visit and Prior labs Discharge Plan Triage Chief Complaint: Dental ED Provider: Per Marrero Dx/Rx/DC Orders Clinical Impression: Pain, dental, Dental abscess Instructions: Dental Abscess, ED Dental Pain Prescriptions: No Action atorvastatin 20 mg tablet 20 mg PO DAILY Qty: 30 11RF propranolol [Inderal LA] 80 mg capsule,extended release 24 hr 80 mg PO DAILY Qty: 30 11RF albuterol sulfate 1 INHALER inhaler 1 - 2 puff Inhalation Q4H PRN PRN (Reason: Asthma) ibuprofen 200 MG tablet 200 mg PO Q6H PRN PRN (Reason: Pain) hydrochlorothiazide 25 mg tablet 12.5 mg PO PRN PRN (Reason: swelling) Patient Comments: 12.5 mg PO daily for edema; Rx Instructions: 12.5 mg PO daily for edema; meloxicam 15 MG tablet 13 mg PO DAILY ondansetron 4 MG tablet 4 mg PO Q8H PRN PRN (Reason: Nausea) Qty: 10 0RF aspirin 81 MG tablet,chewable 81 mg PO DAILY@0800 Qty: 30 0RF promethazine 25 mg tablet 25 mg PO Q6H PRN (Reason: nausea and vomiting) Qty: 20 0RF sumatriptan succinate 6 mg/0.5 mL pen injector 6 mg subcut X1 PRN (Reason: migraine headache) Qty: 1 0RF hydrocodone-acetaminophen 5-325 mg tablet 1 tab PO Q6H PRN PRN (Reason: Pain) 3 Days Qty: 10 0RF amoxicillin-pot clavulanate [amoxicillin-pot clavulanate] 875-125 mg tablet 875 mg PO Q12H Qty: 20 0RF potassium chloride 10 mEq tablet extended release 10 meq PO DAILY Qty: 30 11RF digoxin 250 mcg tablet 0.25 mg PO DAILY Qty: 30 11RF Primary Care Provider: Leidy Crawford Referrals: Leidy Crawford DO [Primary Care Provider] - As Needed Activity Restrictions/Additional Instructions: Motrin and Tylenol and pain meds as needed for pain. Plenty of fluids and rest. Continue antibiotics orally and/or follow-up for further IV antibiotics. Follow-up with a local dentist to have that tooth pulled. Disposition Disposition: Home, Self Care
[2023-12-17] MEDS: Ketorolac 30 MG/ML Syringe IV (13:33)
[2023-12-17] MEDS: Ondansetron 4 MG/2 ML Vial IV (13:33)
[2023-12-17] MEDS: morphine 8 MG/ML Syringe IV (13:34)
[2023-12-17 14:18] VITALS: BP 152/72; PULSE 59; RESP 16; TEMP 36.2; O2SAT 95
[2023-12-17] MEDS: Ampicillin/Sulbactam 3 GM in 0.9% Normal Saline (100mL MB+) 100 ML IV ×2 (14:32→20:01)
[2023-12-17 14:58] VITALS: RESP 16; O2SAT 99
[2023-12-17 15:59] VITALS: BP 128/67; PULSE 55; O2SAT 97
[2023-12-17] MEDS: morphine 8 MG/ML Syringe 6 MG IV (16:50)
[2023-12-17 18:59] VITALS: BP 152/82; PULSE 56; RESP 19; TEMP 36.3; O2SAT 94
[2023-12-17 20:58] VITALS: BP 146/58; PULSE 61; RESP 16; TEMP 36.1; O2SAT 94
== END 2023-12-17 20:59 | disposition home or self-care (01) ==
PROVIDERS: Emergency Provider Emergency Medicine; PCP Family Medicine; Visit Provider Emergency Medicine
DX: K04.7 Periapical abscess without sinus (principal); K08.89 Other specified disorders of teeth and supporting structures; F17.210 Nicotine dependence, cigarettes, uncomplicated
CPT/HCPCS: 96365; 96366; 96375; 96376; 99283; J7040; A4216; J0295; J2405

== ENCOUNTER → 2024-07-22 | Outpatient (CLI) | payer OTHER, SELFPAY ==
--- NOTE | 2024-07-22 14:28 | RAD_ITS ---
INDICATION: LEFT HIP PAIN, ABNORMAL GAIT EXAMINATION/TECHNIQUE: X-RAY - XR Hip Unilateral with Pelvis when performed; 3 Views COMPARISON: FINDINGS: PELVIC BONES: No displaced fracture, destructive or sclerotic lesions. Note that overlapping bowel shadows may however obscure fine detail. Sacroiliac joints are unremarkable. No widening of the pubic symphysis. HIPS: The articular structures are unremarkable. No displaced fracture seen in this frontal view. SOFT TISSUES: No soft tissue swelling or gas. RAD/HIP, UNI W/ Pelvis 2-3 Views IMPRESSION: No evidence of displaced pelvic or hip fracture. Electronically Signed: Mario Small DO at 8:47 EST Reading Location ID and State: [facility] / [place] Tel [phone], Service support ,
--- NOTE | 2024-07-22 14:28 | RAD_ITS ---
INDICATION: LEFT FOOT SPUR EXAMINATION/TECHNIQUE: X-RAY - LEFT XR Foot 4 VIEWS COMPARISON: FINDINGS: SOFT TISSUES: No soft tissue swelling or gas. No radiopaque foreign body. BONES/JOINTS: No acute fracture or subluxation.. Normal alignment. Calcaneal spurring, more prominent posteriorly at the Achilles tendon insertion. Preservation of the joint space.. No sclerotic or destructive changes observed. RAD/Foot min 3 Views IMPRESSION: No acute bony injury. Calcaneal spurring. Electronically Signed: Mario Small DO at 8:50 EST ,
== END | disposition home or self-care (01) ==
LOC: RAD 14:22
PROVIDERS: PCP Family Medicine; Referring Provider Family Medicine; Visit Provider Family Medicine
DX: M79.672 Pain in left foot (principal); M25.552 Pain in left hip
CPT/HCPCS: 73502; 73630

== ENCOUNTER → 2024-12-19 | Outpatient (CLI) | payer OTHER, SELFPAY ==
--- NOTE | 2024-12-19 13:00 | MRI_ITS ---
EXAM: Noncontrast MRI of the left ankle. CLINICAL HISTORY: Left ankle sprain. Surgical planning for bone spur COMPARISON: None available TECHNIQUE: Multiplanar, multisequence MRI images of the left ankle were obtained without IV contrast. FINDINGS: The included distal Achilles tendon and proximal plantar fascia are intact. There is a small plantar calcaneal spur. The included distal tibia and fibula are intact. No osteochondral lesion of the talar dome. Small tibiotalar joint effusion. The major flexor and extensor tendons appear intact. There are moderately extensive degenerative changes of the tarsal bones. There are small cysts, measuring up to 6 mm, with some edema involving the proximal 3rd and 5th metatarsals. No acute displaced fracture of the left ankle or proximal metatarsals. Fat signal is maintained in the sinus tarsi. 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 There is some mild patchy marrow edema involving the inferior neck of the calcaneus, without discrete fracture line. The anterior and posterior distal syndesmotic ligaments of the distal tibia/fibula, as well as the anterior talofibular, calcaneofibular, and deltoid ligaments, are intact. 9 mm subcortical cyst of the lateral cuneiform may be secondary to degenerative joint disease. MRI/Lower Ext Joint Only (Routine) IMPRESSION: No acute bony abnormality of the left ankle. There is some mild marrow edema i nvolving the anterior neck of the calcaneus. Major ligamentous structures of the left ankle and flexor/extensor tendons appe ar intact. Moderate degenerative changes amongst the tarsal bones. There are some subcortical cystic changes and adjacent marrow edema of the prox imal 3rd and 5th metatarsals, which could be due to advanced degenerative joint disease versus the sequela of prior trauma. Reading Location: [facility]
== END | disposition home or self-care (01) ==
LOC: MRI 12:27
PROVIDERS: PCP Family Medicine; Referring Provider Podiatrist Foot & Ankle Surgery; Visit Provider Podiatrist Foot & Ankle Surgery
DX: S93.402A Sprain of unspecified ligament of left ankle, initial encounter (principal); X58.XXXA Exposure to other specified factors, initial encounter; M79.672 Pain in left foot
CPT/HCPCS: 73721

== ENCOUNTER → 2024-12-23 | Outpatient (CLI) | payer OTHER, SELFPAY ==
--- NOTE | 2024-12-23 12:55 | ECHOD_ITS ---
Reason For Study Reason For Study: MURMUR Procedure This was a 2D Doppler, Color Flow transthoracic echocardiogram. Exam performed in department. Left Ventricle Normal LV size. The estimated ejection fraction is 65 %. No regional wall motion abnormalities noted. Right Ventricle Normal RV size. Normal systolic function. Atria Normal left atrium. Normal right atrium. Mitral Valve Normal mitral valve. Tricuspid Valve Normal tricuspid valve. Mild (1+) tricuspid valve insufficiency. Pulmonary artery systolic pressure is 24 mmHg. Aortic Valve Trisinus/trileaflet aortic valve. Pulmonic Valve Normal pulmonic valve. Great Vessels Normal aortic root. The pulmonary artery is normal size. Normal inferior vena cava. Pericardium/Pleural No pericardial effusion. MMode/2D Measurements & Calculations LVIDd: 4.7 cm IVSd: 1.0 cm Ao root diam: 3.0 cm LVIDs: 3.1 cm LVPWd: 1.0 cm RVDd: 3.1 cm FS: 35.4 % LAV(MOD-bp): 40.6 ml LVAd ap4: 26.0 cm2 SV(MOD-sp4): 46.0 ml LAV(MOD-bp) Indexed: 20.3 ml/m2 LVLd ap4: 7.7 cm SI(MOD-sp4): 23.0 ml/m2 LAV(MOD-sp2): 41.4 ml EDV(MOD-sp4): 72.9 ml LAV(MOD-sp4): 40.0 ml EDV(sp4-el): 75.2 ml LVAs ap4: 14.4 cm2 LVLs ap4: 6.3 cm ESV(MOD-sp4): 26.9 ml ESV(sp4-el): 27.7 ml EF(MOD-sp4): 63.1 % EF(sp4-el): 63.2 % SV(sp4-el): 47.5 ml LA A4 area: 16.0 cm2 LA dimension(2D): 3.6 cm RA A4 area: 14.1 cm2 TAPSE: 2.6 cm Time Measurements MV dec time: 0.24 sec Doppler Measurements & Calculations MV E max jan: 107.9 cm/sec Lat Peak E' Jan: 12.6 cm/sec Med Peak E' Jan: 11.8 cm/sec MV A max jan: 109.5 cm/sec E/E' lat: 8.6 E/E' med: 9.1 MV E/A: 0.99 Ao V2 max: 149.2 cm/sec LV V1 max: 130.3 cm/sec PA V2 max: 187.7 cm/sec Ao max P.9 mmHg LV V1 max P.8 mmHg TR max jan: 227.7 cm/sec TR max P.7 mmHg ECHO/Echo Complete Interpretation Summary Normal LV size. The estimated ejection fraction is 65 %. Pulmonary artery systolic pressure is 24 mmHg. Structurally normal valves. Ordering Physician: Ginna Kowalski Referring Physician: Ginna Kowalski Performed By: Hui Aguirre RDCS
== END | disposition home or self-care (01) ==
LOC: CVS 12:54
PROVIDERS: PCP Family Medicine; Referring Provider Family Medicine; Visit Provider Family Medicine
DX: R01.1 Cardiac murmur, unspecified (principal)
CPT/HCPCS: 93306

== ENCOUNTER → 2025-01-18 | Outpatient (CLI) | payer OTHER, SELFPAY ==
[2025-01-18 16:48] LABS: Hemoglobin A1c 5.5 % (<=5.6)
== END | disposition home or self-care (01) ==
LOC: LAB.FUTURE 14:20
PROVIDERS: PCP Family Medicine; Visit Provider Family Medicine
DX: Z01.818 Encounter for other preprocedural examination (principal); F17.200 Nicotine dependence, unspecified, uncomplicated
CPT/HCPCS: 80323; 83036; G0480

== ENCOUNTER → 2025-02-07 | Outpatient (CLI) | payer OTHER, SELFPAY | END | disposition home or self-care (01) | LOC: LAB 12:44 | PROVIDERS: PCP Family Medicine; Referring Provider Anesthesiology; Visit Provider Anesthesiology | DX: Z00.00 Encounter for general adult medical examination without abnormal findings (principal) ==

== ENCOUNTER 2025-02-21 05:46 | Day surgery (SDC) | payer OTHER, SELFPAY ==
--- NOTE | 2025-02-07 18:08 | PAT.ANE_ITS ---
Pre-Assessment Diagnosis/Proposed Procedure Planned Operative Procedure(s): HARVEST OF BONE MARROW ASPIRATE CONCENTRATE,BONILLA OSTEOTOMY WITH LATERAL SHIFT OF LEFT CALCANEOUS WITH PERONEOUS LONGIS BREVIS TENDON TRANSFER.ENDOSCOPIC PLANTAR FASCIA RELEASE,DORSIFLEXION OSTEOTOMY OF THE FIRST METATARSAL,OSTEOTOMY OF THE LEFT TARSAL BONE. 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 - ms access database developer: Anesthesia History - ms access database developer Hx Hospitalization No 02/07/25 09:20 Any Problems With Anesthesia No 02/07/25 09:20 Cholinesterase deficiency No 02/07/25 09:20 You/Your Family Experience No 02/07/25 09:20 fever (hyperthermia) with Relationship Recent Exposure to Contagious No 03/29/17 06:33 Disease Does patient have nerve No 02/07/25 09:20 stimulator Patient instructed to have device shut off --Does patient have Pacemaker or ICD? When Was Last Pacemaker Check QUESTION #4 FULL TEXT: You/Your Family Experience fever (hyperthermia) with Anesthesia Last Oral Intake Last Oral intake: Last Oral Intake NPO since Meds taken in AM with sips of water? Meds patient instructed to take am of surgery PONV PONV - ms access database developer: PONV - ms access database developer Female Yes 02/07/25 09:20 HX of Motion Sickness No 02/07/25 09:20 HX of N/V After Surgery No 02/07/25 09:20 Non-Smoker No 02/07/25 09:20 Duration of Surgery greater Yes 02/07/25 09:20 than 60 minutes Number of Risk Factors 2 02/07/25 09:20 PONV Score Moderate Risk 02/07/25 09:20 Height & Weight Height & Weight: Anesthesia: Height & Weight Height 5 ft 6 in 12/17/23 12:56 Respiratory Assessment Respiratory Assessment - ms access database developer: Respiratory Tract Infection Hx - ms access database developer Hx Respiratory Tract Infection No 02/07/25 09:20 STOP Sleep Apnea STOP Sleep Apnea - ms access database developer: STOP Sleep Apnea - ms access database developer Hx Hypertension No: HYPOTENSION 02/07/25 09:20 Hx Sleep Apnea No 02/07/25 09:20 CPAP No 06/15/18 13:23 BIPAP No 06/15/18 13:23 Do you snore loudly (louder No 02/07/25 09:20 than talking or can be heard Do you often feel tired/ No 02/07/25 09:20 fatigued/ sleepy during daytime? Has anyone observed you stop No 02/07/25 09:20 breathing during sleep? STOP Results Negative 02/07/25 09:20 QUESTION #5 FULL TEXT : Do you snore loudly (louder than talking or can be heard through closed doors)? Tobacco Use History Tobacco Use History - ms access database developer: Tobacco Use History - ms access database developer Tobacco Use Cigarettes 07/19/21 08:09 Smoking Status Current every day smoker 02/07/25 09:20 Hx Tobacco Use Yes 02/07/25 09:20 Years Smoking Packs Smoked per Day Smoking Cessation Date was within the last 15 years Hx Smoking Cessation Date Hx Smoking Cessation Counseling Hematologic Medial History Hematologic Hx - ms access database developer: Hematologic Medical Hx - roller man Hx of Blood Transfusion No 02/07/25 09:20 Hx of Transfusion in last 3 No 02/07/25 09:20 Months Date of Last Transfusion (if within last 3 months) Ever experience any problems No 02/07/25 09:20 with transfusion(s)? Specify any problems Hx of Preganancy in last 3 No 02/07/25 09:20 Months Nurse Filling Out Transfusion DSCHRIBER 02/07/25 09:20 & Questions: Date: 02/07/25 02/07/25 09:20 Time: :02/07/25 09:20 Patient unable to answer at this time (ie. confused, unrespo /Reproduction History /Reproductive History - ms access database developer: /Reproductive Hx- ms access database developer Hx Now No 02/07/25 09:20 Gestational Age (in weeks): EDC: Hx Hx Para Hx Section SAB No 02/07/25 09:20 PFSH Medical History (Updated 02/07/25 @ 09:28 by Joy Lara) Wears glasses Post-menopausal Rheumatoid arthritis Arthritis Back pain Migraine headache History of GI bleed Gastric reflux Smoker History of pain when walking History of edema Cardiology follow-up encounter Bradycardia Hypotension History of echocardiogram Family history of ischemic heart disease History of eating disorder History of insomnia Migraine Rheumatoid arthritis Home Medications ?Medication ?Instructions ?Recorded ?Last Taken ?Type albuterol sulfate 90 mcg/actuation 1 - 2 puff Inhalati on Q4H PRN PRN 05/01/14 05/09/14 10:00 History aerosol inhaler Asthma ibuprofen 200 mg tablet 200 mg PO Q6H PRN PRN Pain 0 03/22/17 06/15/18 10:00 History promethazine 25 mg tablet 25 mg PO Q6H PRN nausea and 06/21/23 Unknown Rx vomiting #20 tabs sumatriptan succinate 6 mg/0.5 mL 6 mg (0.5 mL) subcut X1 PRN 06/21/23 Unknown Rx subcutaneous pen injector migraine headache #1 mL hydrocodone-acetaminophen 5-325mg 1 tab PO Q6H PRN PRN Pain 3 days 12/14/23 Unknown Rx 5mg-325mg #10 TABLETS butalbital 50 mg-acetaminophen 325 1 cap PO Q4H PRN pa in 02/07/25 Unknown History mg-caffeine 40 mg-codeine 30 mg cap ergocalciferol (vitamin D2) 1,250 1,250 mcg PO QWEEK 0 02/07/25 Unknown History mcg (50,000 unit) capsule lorazepam 0.5 mg tablet 0.5 mg PO PRN PRN DENTAL Unknown History ondansetron 4 mg disintegrating 8 mg PO Q8H PRN PRN Na usea 02/07/25 Unknown History tablet Allergy/AdvReac Type Severity Reaction Status Date / Time diltiazem AdvReac Intermediate Leg Verified 12/16/23 10:28 swelling gabapentin (From [facility]izant) AdvReac Intermediate Edema Verified 12/16/23 10:28 Family History Mother Breast cancer Grandmother Breast cancer Other Heart disease Hypertension Isela Gehrigs disease Myocardial infarction Surgical History (Updated 02/07/25 @ 09:30 by Joy Lara) History of dental surgery History of left heart catheterization (~06/15/18) History of lumpectomy of right breast History of section history of wrist surgery history of coccyx removal 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 History of cholecystectomy History of foot surgery History of rotator cuff surgery Hx of left knee surgery History of back surgery Social History Smoking Status: Current every day smoker tobacco type: cigarettes alcohol intake: never substance use type: does not use Audit: Pertinent Findings Pertinent Findings EKG Perinent findings: July 05, 2018. Normal sinus rhythm. Echo (EF%) pertinent findings: December 23, 2024. EF 65%. PASP is 24 mmHg. No aortic stenosis is noted. Structurally normal valves. Heart catheterization pertinent findings: June 15, 2018. Normal coronary arteries. EF of 65%. Recommendation Anesthesia Recommendation Anesthesia recommendation: OPTIMIZED for anesthesia
[2025-02-21] VITALS (11 sets, daily range): BP systolic 110–131; BP diastolic 55–77; PULSE 62–73; RESP 16; TEMP 36.3–36.5; O2SAT 95–100; BMI 32.7
--- OUTSIDE RECORDS SUMMARY | 2025-02-21 05:49 | XMS RPT_ITS | CCD ---
Author Organization [facility] Care Team Providers Care Hemodialysis Rn Name Role Phone Marysol Juarez Unavailable Milli Randall Unavailable Rick Aguilar Unavailable Unavailable Song, Carina N Unavailable Song, Carina N Unavailable Song, Carina N Unavailable Song, Carina N Unavailable Milli Randall Unavailable Rick Aguilar Unavailable Unavailable Song, Carina N Unavailable Song, Carina N Unavailable Song, Carina N Unavailable Song, Carina N Unavailable Song, Carina N Unavailable Rick Aguilar Unavailable Unavailable Song, Carina N Unavailable Marysol Juarez Unavailable SHAYY WALLACE Attending Unavailable [facility] Primary Care Unavailable CARA PATEL Referring Unavailable SHAYY WALLACE Attending CARA Hi Referring Unavailable Song, Carina N Unavailable Dr. Leidy Crawford Primary Care Provider Dr. Leidy Crawford Referring Provider [phone] Aviva ZUÑIGA, YOGESH Priest Attending Provider Dex VAZQUEZ, Dr. Chacko Primary Care Provider Gordon DPM, Dr. Jean Baptiste Attending Provider Gordon DPM, Dr. Jean Baptiste Referring Provider Dex VAZQUEZ, Dr. Chacko Attending Provider Dex VAZQUEZ, Dr. Chacko Referring Provider [phone] Marian VAZQUEZ, Dr. Humphrey Attending Provider [phone] Assessment, Health Risk Attending Unavaila ble Assessment, Health Risk Referring Unavaila ble Malys, Leidy Primary Care Unavailable Miedel, Ginna Primary Care Unavailable Markel Leyva Attending Unavailable Kancherla, Saul Attending Unavailable Kancherla, Saul Referring Unavailable Miedel, Ginna Primary Care Unavailable Kam Fonseca Attending Unavailable Miedel, Ginna Primary Care Unavailable Miedel, Ginna Primary Care Unavailable Markel Leyva Attending Unavailable Markel Leyva Referring Unavailable Miedel, Ginna Primary Care Unavailable Miedel, Ginna Attending Unavailable Miedel, Ginna Referring Unavailable Miedel, Ginna Attending Unavailable Miedel, Ginna Referring Unavailable Miedel, Ginna Primary Care Unavailable Miedel, Ginna Attending Unavailable Miedel, Ginna Primary Care Unavailable Allergies Allergy Classification Reported Allergen(s) Allergy Type Date of Onset Reaction(s) Facility (20 sources) acetaminophen / oxyCODONE drug allergy 4 [facility] Work Phone: (20 sources) QUEtiapine drug allergy 6 throat and facial swelling [facility] Work Phone: (2 sources) Acetaminophen / HYDROcodone; Translations: [HYDROCODONE-ACET AMINOPHEN] Drug Allergy 2 [facility] Rep[facility] (2 sources) Acetaminophen / oxyCODONE; Translations: [OXYCODONE-ACETAM INOPHEN] Drug Allergy 8 [facility] (8 sources) dilTIAZem Drug Allergy 0 Leg swelling [facility] (8 sources) gabapentin Drug Allergy 0 Edema [facility] (6 sources) oxyCODONE; Translations: [oxycodone HCl] Drug Allergy 0 Anaphylaxis [facility] (1 source) dilTIAZem Drug Allergy 4 [facility] (1 source) gabapentin Drug Allergy 4 [facility] Medications Current Medications Medication Drug Class(es) Dates Sig (Normalized) Sig (Original) acetaminophen 325 mg / HYDROcodone bitartrate 5 mg oral tablet (6 sources) Opioid Agonist Start: 12-14-2023 take 1 tablet by mouth every six hours as needed for pain Hydrocodone-Aceta minophen 5-325 mg tablet Active 1 {tbl} PO EVERY 6 HOURS NEEDED as needed for Pain 10 December 14, 2023 Start: 12-14-2023 take 1 tablet by pipo th every six hours as needed Hydrocodone-Acetaminophen Active 1 TABLE T PO EVERY 6 HOURS NEEDED 10 December 14, 2023 amoxicillin 875 mg / clavulanate 125 mg oral tablet (5 sources) Penicillin-class Antibacterial Start: 12-16-2023 take 1 tablet by mouth every twelve hours Amoxicillin-Pot Clavulanate 875-125 mg tablet Active 875 mg PO Q12H December 16, 2023 12:00am aspirin 81 mg chewable tablet (8 sources) Platelet Aggregation Inhibitor, Nonsteroidal Anti-inflammatory Drug Start: 06-14-2018 take 1 tablet by mouth once daily Aspirin 81 MG tablet,chewable Active 81 mg PO DAILY@0800 June 14, 2018 12:00am atorvastatin 20 mg oral tablet (8 sources) HMG-CoA Reductase Inhibitor Start: 06-15-2018 take 1 tablet by mouth once daily Atorvastatin 20 mg tablet Active 20 mg PO DAILY June 15, 2018 12:00am digoxin 0.25 mg oral tablet (8 sources) Cardiac Glycoside Start: 07-19-2018 take 0.25 mg by mouth once daily Digoxin 250 mcg tablet Active 0.25 mg PO DAILY July 19, 2018 1:00am Start: 07-19-2018 take 0.25 mg by mouth once nanda ly Digoxin Active 0.25 MG PO DAILY July 19, 2018 1:00am hydroCHLOROthiazide 25 mg oral tablet (16 sources) Thiazide Diuretic Start: 03-22-2017 End: 06-15-2018 Hydrochlorothiazide 25 mg tablet Active 12.5 mg PO NEEDED as needed for swelling June 15, 2018 9:32am 12.5 mg PO daily for edema; Start: 03-22-2017 End: 06-15-2018 take 12.5 mg by mouth once daily as needed for edema Hydrochlorothiazide Active 12.5 MG PO NEEDED June 15, 2018 9:32am 12.5 mg PO daily for edema; ibuprofen 200 mg oral tablet (8 sources) Nonsteroidal Anti-inflammatory Drug Start: 03-22-2017 take 1 tablet by mouth every six hours as needed for pain Ibuprofen 200 MG tablet Active 200 mg PO EVERY 6 HOURS NEEDED as needed for Pain March 22, 2017 12:00am meloxicam 15 mg oral tablet (8 sources) Nonsteroidal Anti-inflammatory Drug Start: 06-14-2018 Meloxicam 15 MG tablet Active 13 mg PO DAILY June 14, 2018 12:00am Start: 06-14-2018 take 13 mg by mouth once daily Meloxicam Active 13 MG PO DAILY June 14, 2018 12:00am ondansetron 4 mg disintegrating oral tablet (8 sources) Serotonin-3 Receptor Antagonist Start: 06-14-2018 take 1 tablet by mouth every eight hours as needed for nausea Ondansetron 4 MG tablet Active 4 mg PO EVERY 8 HOURS NEEDED as needed for Nausea June 14, 2018 12:00am potassium chloride 10 meq extended release oral tablet (20 sources) Start: 07-19-2018 take 1 tablet by mouth once daily Potassium Chloride 10 mEq tablet extended release Active 10 meq PO DAILY July 19, 2018 1:00am Start: 01-13-2016 POTASSIUM CHLO RIDE ER 10 MEQ CR-TABS 1 tablet by mouth as need for muscle cramps POTASSIUM CHLORIDE [id number] Ana Laurasandeep Salamanca PA-C promethazine hydrochloride 25 mg oral tablet (7 sources) Phenothiazine Start: 06-21-2023 take 1 tablet by mouth every six hours as needed for nausea and vomiting Promethazine 25 mg tablet Active 25 mg PO EVERY 6 HOURS as needed for nausea and vomiting June 21, 2023 12:00am 24 hr propranolol hydrochloride 80 mg extended release oral capsule (8 sources) beta-Adrenergic Camron Start: 06-15-2018 take 1 capsule by mouth once daily Propranolol (Inderal La) 80 mg capsule,extended release 24 hr Active 80 mg PO DAILY June 15, 2018 12:00am 0.5 ml SUMAtriptan 12 mg/ml auto-injector (20 sources) Serotonin-1b and Serotonin-1d Receptor Agonist Start: 06-21-2023 Sumatriptan Succinate 6 mg/0.5 mL pen injector Active 6 mg SC ONE TIME as needed for migraine headache June 21, 2023 7:36pm Start: 01-13-2016 IMITREX 6 MG/0 .5ML SOLN 1 injection as needed for migraines SUMATRIPTAN SUCCINATE [id number] Ana Laura Jean Billingsley YOGESH Start: 01-13-2016 IMITREX 6 MG/0 .5ML SOLN 1 injection as needed for migraines SUMATRIPTAN SUCCINATE [id number] Ana Laura SUTTON Completed/Discontinued Medications Medication Drug Class(es) Dates Sig (Normalized) Sig (Original) acetaminophen 300 mg / butalbital 50 mg / caffeine 40 mg / codeine phosphate 30 mg oral capsule (20 sources) Opioid Agonist, Barbiturate, Central Nervous System Stimulant, Methylxanthine Start: 01-13-2016 FIORICET/CODEINE 74-590-03-30 MG CAPS 1 tablet by mouth as needed for migraines [id number] AFF-COD [id number] Ana Laura Jean Billingsley YOGESH Start: 01-13-2016 FIORICET/CODEI NE 54-260-67-30 MG CAPS 1 tablet by mouth as needed for migraines [id number] [id number] Ana Laura Jean Billingsley YOGESH 200 actuat albuterol 0.09 mg/actuat metered dose inhaler (20 sources) beta2-Adrenergic Agonist Start: 01-13-2016 PROAI R HFA 108 (90 Base) MCG/ACT AERS 2 puffs twice daily ALBUTEROL SULFATE [id number] Ana Laura Pena Billingsley LESLEY Start: 01-13-2016 PROAIR HFA 108 (90 Base) MCG/ACT AERS 2 puffs twice daily ALBUTEROL SULFATE [id number] Ana Laura SUTTON Start: 05-01-2014 Albuterol Sulf ate 1 INHALER inhaler Active 1 - 2 NMA Inhalation EVERY 4 HOURS NEEDED as needed for Asthma May 01, 2014 12:00am Start: 05-01-2014 take 1 puff(s) by in halation every four hours as needed Albuterol Sulfate Active 1 - 2 PUFF Inhalation EVERY 4 HOURS NEEDED May 01, 2014 12:00am BUDESONIDE-FORMOTEROL FUMARATE AERO (20 sources) Corticosteroid, beta2-Adrenergic Agonist Start: 05-01-2014 SYMBICORT AERO 1 puff twice daily BUDESONIDE-FORMOTEROL FUMARATE AERO [id number] Marysol Juarez Start: 05-01-2014 End: 01-13-2016 SYMBICORT AERO 1 puff twice daily BUDESONIDE-FORMOTEROL FUMARATE AERO [id number] Ana Laura Salamanca PA-C Start: 05-01-2014 SYMBICORT AERO 1 puff twice daily BUDESONIDE-FORMOTEROL FUMARATE AERO [id number] Marysol Juarez Start: 05-01-2014 End: 01-13-2016 SYMBICORT AERO 1 puff twice daily BUDESONIDE-FORMOTEROL FUMARATE AERO [id number] Ana Laura Salamanca PA-C celecoxib 200 mg oral capsule (20 sources) Nonsteroidal Anti-inflammatory Drug Start: 05-01-2014 End: 01-13-2016 take 1 capsule by mouth once daily CELEBREX 200 MG CAPS 1 capsule by mouth daily CELECOXIB [id number] Ana Laura Salamanca PA-C citalopram 10 mg oral tablet (20 sources) Serotonin Reuptake Inhibitor Start: 05-01-2014 End: 01-13-2016 CELEXA 10 MG TABS daily CITALOPRAM HYDROBROMIDE [id number] Ana Laura Salamanca PA-C clindamycin 150 mg oral capsule (6 sources) Lincosamide Antibacterial Start: 12-14-2023 End: 12-16-2023 take 2 capsules by mouth four times daily Clindamycin Hcl 150 mg capsule Discontinued 300 mg PO 4 TIMES DAILY 80 December 14, 2023 12:00am December 16, 2023 12:01pm Start: 12-14-2023 End: 12-16-2023 take 300 mg by mouth four times daily Clindamycin Hcl Discontinued 300 MG PO 4 TIMES DAILY 80 December 14, 2023 12:00am December 16, 2023 12:01pm clopidogrel 75 mg oral tablet (8 sources) P2Y12 Platelet Inhibitor Start: 06-14-2018 End: 06-15-2018 take 1 tablet by mouth once daily Clopidogrel 75 MG tablet Discontinued 75 mg PO DAILY June 14, 2018 12:00am June 15, 2018 4:58pm 24 hr dilTIAZem hydrochloride 120 mg extended release oral capsule (8 sources) Calcium Channel Camron Start: 07-05-2018 End: 07-19-2018 take 1 capsule by mouth once daily Diltiazem Hcl 120 MG capsule Discontinued 120 mg PO DAILY July 05, 2018 12:00am July 19, 2018 1:57pm gabapentin enacarbil 600 mg extended release oral tablet (20 sources) Anti-epileptic Agent Start: 01-13-2016 take 1 tablet by mouth once daily HORIZANT 600 MG CR-TABS 1 tablet by mouth daily GABAPENTIN ENACARBIL [id number] Ana Laura Pena Billingsley PA-C Start: 01-13-2016 take 1 tablet by pipo th once daily HORIZANT 600 MG CR-TABS 1 tablet by mouth daily GABAPENTIN ENACARBIL [id number] Ana Laura Salamanca PA-C magnesium oxide 500 mg oral tablet (20 sources) Start: 01-13-2016 MAGNESIUM OXID E 500 MG TABS 1 tablet by mouth MAGNESIUM OXIDE [id number] Ana Laura Salamanca PA-C MULTIPLE VITAMINS-MINERALS (15 sources) Start: 01-13-2016 take 1 tablet by mouth once daily ONE DAILY MULTIVITAMIN WOMEN TABS 1 tablet by mouth daily MULTIPLE VITAMINS-MINERALS [id number] Ana Laura Jean Billingsley PA-C MULTIPLE VITAMINS-MINERALS (15 sources) Start: 01-13-2016 take 1 tablet by mouth once daily ONE DAILY MULTIVITAMIN WOMEN TABS 1 tablet by mouth daily MULTIPLE VITAMINS-MINERALS [id number] Ana Laura Jean Billingsley PA-C Start: 01-13-2016 take 1 tablet by pipo th once daily ONE DAILY MULTIVITAMIN WOMEN TABS 1 tablet by mouth daily MULTIPLE VITAMINS-MINERALS [id number] Ana Laura Pena Billingsley YOGESH pantoprazole 40 mg oral granules (20 sources) Proton Pump Inhibitor Start: 01-13-2016 take 1 tablet by mouth once daily PROTONIX 40 MG PACK 1 tablet by mouth daily PANTOPRAZOLE SODIUM [id number] Ana Laura Pena [facility] Start: 01-13-2016 take 1 tablet by pipo th once daily PROTONIX 40 MG PACK 1 tablet by mouth daily PANTOPRAZOLE SODIUM [id number] Ana Laura Pena Billingsley YOGESH Start: 05-01-2014 End: 01-13-2016 PROTONIX 20 MG TBEC twice da manpreet PANTOPRAZOLE SODIUM [id number] Marysol Juarez predniSONE 20 mg oral tablet (20 sources) Corticosteroid Start: 01-13-2016 PREDNISONE 20 MG TABS 1 tablet by mouth as needed for arthritis pain PREDNISONE [id number] Ana Laura Pena Billingsley YOGESH rOPINIRole 1 mg oral tablet (20 sources) Nonergot Dopamine Agonist Start: 05-01-2014 End: 01-13-2016 REQUIP 1 MG TABS every night ROPINIROLE HCL [id number] Marysol Juarez 24 hr rotigotine 0.125 mg/hr transdermal system (20 sources) Start: 01-13-2016 NEUPRO 3 MG/24 HR PT24 1 patch every 24 hours ROTIGOTINE [id number] Ana Laura Pena Billingsley YOGESH Start: 01-13-2016 NEUPRO 3 MG/24 HR PT24 1 patch every 24 hours ROTIGOTINE [id number] Ana Laura Pena [facility] B COMPLEX VITAMINS (20 sources) Start: 01-13-2016 take 1 tablet by mouth once daily VITAMIN B COMPLEX TABS 1 tablet by mouth daily B COMPLEX VITAMINS [id number] Ana Laura ZUÑIGA Start: 01-13-2016 take 1 tablet by pipo th once daily VITAMIN B COMPLEX TABS 1 tablet by mouth daily B COMPLEX VITAMINS [id number] Ana Laura ZUÑIGA Problems Active Problems Problem Classification Problem Date Documented Date Episodic/Chronic Disorders of lipid metabolism (8 sources) Hyperlipidemia; Translations: [Hyperlipidemia, unspecified] 06-15-2018 Chronic Disorders of teeth and jaw (14 sources) Dental abscess; Translations: [Periapical abscess without sinus] 12-14-2023 Episodic Headache; including migraine (15 sources) Migraine; Translations: [Migraine, unspecified, not intractable, without status migrainosus] 06-15-2018 Chronic Heart valve disorders (1 source) Cardiac murmur, unspecified; Translations: [Cardiac murmur, unspecified] Onset: 12-26-2024 Episodic Immunizations and screening for infectious disease (8 sources) Patient encounter status; Translations: [Encounter for screening for COVID-19] 04-21-2022 Episodic Intestinal infection (7 sources) Viral gastroenteritis; Translations: [Viral intestinal infection, unspecified] 06-21-2023 Episodic Joint disorders and dislocations; trauma-related (20 sources) Derangement of knee; Translations: [Unspecified internal derangement of left knee] Onset: 01-17-2017 01-17-2017 Chronic Nonspecific chest pain (8 sources) Chest pain; Translations: [Chest pain, unspecified] 06-15-2018 Episodic Open wounds of extremities (3 sources) Needle stick injury of finger 02-29-2020 Episodic Osteoarthritis (9 sources) Osteoarthritis of knee; Translations: [Osteoarthritis of knee, unspecified] Onset: 06-09-2017 06-13-2017 Chronic Other non-traumatic joint disorders (14 sources) Arthropathy; Translations: [Other specified acquired deformities of musculoskeletal system] Onset: 04-13-2017 04-14-2017 Chronic Residual codes; unclassified (8 sources) H/O: Disorder; Translations: [Personal history of other specified conditions] 02-29-2020 Episodic Residual codes; unclassified (8 sources) Family history of ischemic heart disease; Translations: [Family history of ischemic heart disease and other diseases of the circulatory system] 06-15-2018 Episodic Rheumatoid arthritis and related disease (20 sources) Rheumatoid arthritis - hand joint; Translations: [Rheumatoid arthritis] Onset: 01-13-2016 01-13-2016 Chronic Screening and history of mental health and substance abuse codes (8 sources) History of eating disorder; Translations: [Personal history of other mental and behavioral disorders] 02-29-2020 Episodic Spondylosis; intervertebral disc disorders; other back problems (1 source) Intervertebral disc disorders with radiculopathy, lumbar region; Translations: [Intervertebral disc disorder with radiculopathy of lumbar region] Onset: 12-21-2018 Episodic Sprains and strains (20 sources) Sprain of anterior cruciate ligament of left knee, initial encounter; Translations: [Strain of muscle of lower limb] Onset: 05-01-2014 02-17-2017 Episodic Substance-related disorders (8 sources) Tobacco dependence syndrome; Translations: [Nicotine dependence, unspecified, uncomplicated] 06-15-2018 Chronic Unclassified (12 sources) Postoperative physical examination; Translations: [Encounter for other specified surgical aftercare] Onset: 04-13-2017 04-13-2017 Unclassified (2 sources) Intervertebral disc disorder with radiculopathy of lumbar region Onset: 12-21-2018 Unclassified (5 sources) Needle stick injury of finger; Translations: [Needlestick injury of finger of left hand] 02-29-2020 Past or Other Problems Problem Classification Problem Date Documented Date Episodic/Chronic Joint disorders and dislocations; trauma-related (19 sources) Acute meniscal tear, medial; Translations: [Other tear of medial meniscus, current injury, unspecified knee, initial encounter] Onset: 02-17-2017 02-17-2017 Episodic Other aftercare (4 sources) Encounter for other specified surgical aftercare; Translations: [Sprain of anterior cruciate ligament of left knee, subsequent encounter] Onset: 03-10-2017 04-13-2017 Episodic Other connective tissue disease (20 sources) Trochanteric bursitis; Translations: [Trochanteric bursitis, unspecified hip] Onset: 05-01-2014 05-02-2014 Episodic Other connective tissue disease (1 source) Pain in left foot; Translations: [Pain in left foot] Onset: 08-20-2024 Episodic Other non-traumatic joint disorders (20 sources) Knee pain; Translations: [Hip pain] Onset: 05-01-2014 01-16-2017 Episodic Other non-traumatic joint disorders (9 sources) Hip pain; Translations: [Pain in unspecified hip] Onset: 05-01-2014 05-02-2014 Episodic Other nutritional; endocrine; and metabolic disorders (20 sources) Abnormal weight gain; Translations: [Abnormal weight gain] Onset: 01-13-2016 01-14-2016 Episodic Residual codes; unclassified (8 sources) History of cardiac catheterization; Translations: [Other specified postprocedural states] Onset: 06-11-2018 06-15-2018 Episodic Comment on above: Per Dr. 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 Ginna Kowalski MD Status:PRE [facility] [place] Race: C [place] [facility] [place] Pre-Assessment Diagnosis/Proposed Procedure Planned Operative Procedure(s): HARVEST OF BONE MARROW ASPIRATE CONCENTRATE,BONILLA OSTEOTOMY WITH LATERAL SHIFT OF LEFT CALCANEOUS WITH PERONEOUS LONGIS BREVIS TENDON TRANSFER.ENDOSCOPIC PLANTAR FASCIA RELEASE,DORSIFLEXION OSTEOTOMY OF THE FIRST METATARSAL,OSTEOTOMY OF THE LEFT TARSAL BONE. 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 When Was Last Pacemaker Check QUESTION #4 FULL TEXT: You/Your Family Experience fever (hyperthermia) with Anesthesia Last Oral Intake Last Oral intake: Last Oral Intake NPO since Meds taken in AM with sips of water? Meds patient instructed to take am of surgery PONV PONV - clothing examiner: PONV - clothing examiner Female Yes 02/07/25 09:20 HX of Motion Sickness No 02/07/25 09:20 HX of N/V After Surgery No 02/07/25 09:20 Non-Smoker No 02/07/25 09:20 Duration of Surgery greater Yes 02/07/25 09:20 than 60 minutes Number of Risk Factors 2 02/07/25 09:20 PONV Score Moderate Risk 02/07/25 09:20 Height Weight Height Weight: Anesthesia: Height Weight Height 5 ft 6 in 12/17/23 12:56 Respiratory Assessment Respiratory Assessment - clothing examiner: Respiratory Tract Infection Hx - clothing examiner Hx Respiratory Tract Infection No 02/07/25 09:20 STOP Sleep Apnea STOP Sleep Apnea - clothing examiner: STOP Sleep Apnea - clothing examiner Hx Hypertension No: HYPOTENSION 02/07/25 09:20 Hx Sleep Apnea No 02/07/25 09:20 CPAP No 06/15/18 13:23 BIPAP No 06/15/18 13:23 Do you snore loudly (louder No 02/07/25 09:20 than talking or can be heard Do you often feel tired/ No 02/07/25 09:20 fatigued/ sleepy during daytime? Has anyone observed you stop No 02/07/25 09:20 breathing during sleep? STOP Results Negative 02/07/25 09:20 QUESTION #5 FULL TEXT : Do you snore loudly (louder than talking or can be heard through closed doors)? 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 Specify any problems Hx of Preganancy in last 3 No 02/07/25 09:20 Months Nurse Filling Out Transfusion DSCHRIBER 02/07/25 09:20 Questions: Date: 02/07/25 02/07/25 09:20 Time: 09:21 02/07/25 09:20 Patient unable to answer at this time (ie. confused, unrespo /Reproductio n History /Reproductiv e History - clothing examiner: /Reproductiv e Hx- clothing examiner Hx Now No 02/07/25 09:20 Gestational Age (in weeks): EDC: Hx Hx Para Hx Section SAB No 02/07/25 09:20 [facility] Medical History (Updated 02/07/25 @ 09:28 by Joy Lara) Wears glasses Post-menopausal Rheumatoid arthritis Arthritis Back pain Migraine headache History of GI bleed Gastric reflux Smoker History of pain when walking History of edema Cardiology follow-up encounter Bradycardia Hypotension History of echocardiogram Family history of ischemic heart disease History of eating disorder History of insomnia Migraine Rheumatoid arthritis Home Medications ???Medication ???Instructions ???Recorded ???Last Taken ???Type albuterol sulfate 90 mcg/actuation 1 - 2 puff Inhalation Q4H P (more content not included)... Normal [facility] Magnesiumon 02-07-2025 Magnesium [Mass/Vol] 2.2 mg/dL Normal 1.5-2.2 [facility] Comment on above: Performed By: #### L 100.0200, L400.0100, L500.2900 #### [facility] [address] [place], [address] Nicotine Screen Bloodon 01-09 COTININE BLOOD 188.7 ng/mL Normal . [facility] Comment on above: Result Comment: This test was developed and its performance characteristics determined by [employer]. It has not been cleared or approved by the Food and Drug Administration. Cotinine levels greater than 20.0 are consistent with the use of tobacco or tobacco cessation products. Performed at: [address] [id number] Laser Specialist: Natacha Hays MD, Phone: [phone] Performed By: #### L 100.0200, L400.0100, L500.2900 #### [facility] [address] [place], [place], [id number] NICOTINE BLOOD 10.3 ng/mL Normal . [facility] Comment on above: Result Comment: This test was developed and its performance characteristics determined by [employer]. It has not been cleared or approved by the Food and Drug Administration. Nicotine levels greater than 2.0 are consistent with the use of tobacco or tobacco cessation products. Performed By: #### L 100.0200, L400.0100, L500.2900 #### [facility] [address] [place], [address] L3410.9992on 01-23-2025 [facility]. COMMENT Normal . [facility] Comment on above: Order Comment: [id number] Result Comment: Test Ordered: [id number] 25-Hydroxyvitamin D LCMS D2+D3 25-Hydroxy, Vitamin D 16 [L ] ng/mL ES Reference Range: . Reference Range: All Ages: Target levels 30 - 100 25-Hydroxy, Vitamin D-2 <1.0 ng/mL ES Reference Range: . This test was developed and its performance characteristics determined by [facility]. It has not been cleared or approved by the Food and Drug Administration. 25-Hydroxy, Vitamin D-3 15 ng/mL ES Reference Range: . This test was developed and its performance characteristics determined by [facility]. It has not been cleared or approved by the Food and Drug Administration. Performed at: [facility] [address] [place] [id number] Laser Specialist: Cristino Singleton MD, Phone: [phone] Performed at: [facility] [address] [id number] Laser Specialist: Miguel Benton PhD, Phone: [phone] Performed By: #### L 3410.9992, L3600.3400, L501.9985 #### [facility] [address] [place], [place], [address] Hemoglobin A1con 01-18-2025 HbA1c (Bld) [Mass fraction] 5.5 % Normal <=5.6 [facility] Comment on above: Result Comment: Norm al < 5.7 % Prediabetic 5.7 - 6.4 % Diabetic >or= 6.5 % Please note range changes. Performed By: #### L 3410.9992, L3600.3400, L501.9985 #### [facility] [address] [place] [place], [address] Hemoglobin A1c percentageon 01-18-2025 HbA1c (Bld) [Mass fraction] 5.5 % <5.7 [facility] Comment on above: Normal < 5.7 % Predi abetic 5.7 - 6.4 % Diabetic >or= 6.5 % Please note range changes. Echo Completeon 12-23-2024 Echo Complete [facility] [address] [place] [address] Echo Complete 12/23/24 1302 MR#: [id number] Acct: [id number] Name: DARWIN CULLEN Rep #: [id number] : 1965 59 From: Kam Fonseca MD Attending Dr: Dr. Ginna Kowalski MD Status: REG CLI Ordering Dr: Ginna Kowalski MD Date: 12/23/24 Location: [facility] Sex: F C Admitted: Reason For Study Reason For Study: MURMUR Procedure This was a 2D Doppler, Color Flow transthoracic echocardiogram. Exam performed in department. Left Ventricle Normal LV size. The estimated ejection fraction is 65 %. No regional wall motion abnormalities noted. Right Ventricle Normal RV size. Normal systolic function. Atria Normal left atrium. Normal right atrium. Mitral Valve Normal mitral valve. Tricuspid Valve Normal tricuspid valve. Mild (1+) tricuspid valve insufficiency. Pulmonary artery systolic pressure is 24 mmHg. Aortic Valve Trisinus/trileaflet aortic valve. Pulmonic Valve Normal pulmonic valve. Great Vessels Normal aortic root. The pulmonary artery is normal size. Normal inferior vena cava. Pericardium/Pleural No pericardial effusion. MMode/2D Measurements Calculations LVIDd: 4.7 cm IVSd: 1.0 cm Ao root diam: 3.0 cm LVIDs: 3.1 cm LVPWd: 1.0 cm RVDd: 3.1 cm FS: 35.4 % LAV(MOD-bp): 40.6 ml LVAd ap4: 26.0 cm2 SV(MOD-sp4): 46.0 ml LAV(MOD-bp) Indexed: 20.3 ml/m2 LVLd ap4: 7.7 cm SI(MOD-sp4): 23.0 ml/m2 LAV(MOD-sp2): 41.4 ml EDV(MOD-sp4): 72.9 ml LAV(MOD-sp4): 40.0 ml EDV(sp4-el): 75.2 ml LVAs ap4: 14.4 cm2 LVLs ap4: 6.3 cm ESV(MOD-sp4): 26.9 ml ESV(sp4-el): 27.7 ml EF(MOD-sp4): 63.1 % EF(sp4-el): 63.2 % SV(sp4-el): 47.5 ml LA A4 area: 16.0 cm2 LA dimension(2D): 3.6 cm RA A4 area: 14.1 cm2 TAPSE: 2.6 cm Time Measurements MV dec time: 0.24 sec Doppler Measurements Calculations MV E max jan: 107.9 cm/sec Lat Peak E' Jan: 12.6 cm/sec Med Peak E' Jan: 11.8 cm/sec MV A max jan: 109.5 cm/sec E/E' lat: 8.6 E/E' med: 9.1 MV E/A: 0.99 Ao V2 max: 149.2 cm/sec LV V1 max: 130.3 cm/sec PA V2 max: 187.7 cm/sec Ao max P.9 mmHg LV V1 max P.8 mmHg TR max jan: 227.7 cm/sec TR max P.7 mmHg ECHO/Echo Complete Interpretation Summary Normal LV size. The estimated ejection fraction is 65 %. Pulmonary artery systolic pressure is 24 mmHg. Structurally normal valves. Ordering Physician: Ginna Kowalski Referring Physician: Ginna Kowalski Performed By: Hui Aguirre RDCS 12/23/24 1614 Date Kam Fonseca MD CC: Dr. Ginna Kowalski MD Date Dictated: 12/23/24 1302 Date Transcribed: 12/23/241613 [employer] Supervisor: Signed Normal [facility] Echocardiogram study reportO rdered By: Kam Fonseca on 12-23-2024 Study report [facility] [address] [place] [place] [address] Echo Complete 12/23/24 130 MR#: [id number] Acct: [id number] Name: DARWIN CULLEN Rep #:[id number] : 1965 59 From: Kam Pena Attending Dr: Dr. Ginna Kowalski MD Status: REG CLI Ordering Dr: Ginna Kowalski MD Date: 0 12/23/24 Location: [facility] Sex: F C Admitted: Reason For Study Reason For Study: MURMUR Procedure This was a 2D Doppler, Color Flow transthoracic echocardiogram. Exam performed in department. Left Ventricle Normal LV size. The estimated ejection fraction is 65 %. No regional wall motionabnormalities noted. Right Ventricle Normal RV size. Normal systolic function. Atria Normal left atrium. Normal right atrium. Mitral Valve Normal mitral valve. Tricuspid Valve Normal tricuspid valve. Mild (1+) tricuspid valve insufficiency. Pulmonary artery systolic pressure is 24 mmHg. Aortic Valve Trisinus/trileaflet aortic valve. Pulmonic Valve Normal pulmonic valve. Great Vessels Normal aortic root. The pulmonary artery is normal size. Normal inferior vena cava. Pericardium/Pleural No pericardial effusion. MMode/2D Measurements & Calculations LVIDd: 4.7 cm IVSd: 1.0 cm Ao root diam: 3.0 cm LVIDs: 3.1 cm LVPWd: 1.0 cm RVDd: 3.1 cm FS: 35.4 % LAV(MOD-bp): 40.6 ml LVAd ap4: 26.0 cm2 SV(MOD-sp4): 46.0 ml LAV(MOD-bp) Indexed: 20.3 ml/m2 LVLd ap4: 7.7 cm SI(MOD-sp4): 23.0 ml/m2 LAV(MOD-sp2): 41.4 ml EDV(MOD-sp4): 72.9 ml LAV(MOD-sp4): 40.0 ml EDV(sp4-el): 75.2 ml LVAs ap4: 14.4 cm2 LVLs ap4: 6.3 cm ESV(MOD-sp4): 26.9 ml ESV(sp4-el): 27.7 ml EF(MOD-sp4): 63.1 % EF(sp4-el): 63.2 % SV(sp4-el): 47.5 ml LA A4 area: 16.0 cm2 LA dimension(2D): 3.6 cm RA A4 area: 14.1 cm2 TAPSE: 2.6 cm Time Measurements MV dec time: 0.24 sec Doppler Measurements & Calculations MV E max jan: 107.9 cm/sec Lat Peak E' Jan: 12.6 cm/sec Med Peak E' Jan: 11.8 cm/sec MV A max jan: 109.5 cm/sec E/E' lat: 8.6 E/E' med: 9.1 MV E/A: 0.99 Ao V2 max: 149.2 cm/sec LV V1 max: 130.3 cm/sec PA V2 max: 187.7 cm/sec Ao max P.9 mmHg LV V1 max P.8 mmHg ____ TR max jan: 227.7 cm/sec TR max P.7 mmHg ECHO/Echo Complete Interpretation Summary Normal LV size. The estimated ejection fraction is 65 %. Pulmonary artery systolic pressure is 24 mmHg. Structurally normal valves. Ordering Physician: Ginna Kowalski Referring Physician: Ginna Kowalski Performed By: Hui Aguirre RDCS 12/23/24 1614 Date _ Kam Fonseca MD CC: Dr. Ginna Kowalski MD ~ Date Dictated: 12/23/24 1302 Date Transcribed: 12/23/24 1614 [employer] Supervisor: Signed [facility] Work Phone: Lower Ext Joint Only (Routin e)on 12-19-2024 Lower Ext Joint Only (Routine) [facility] Imaging Services [address] [place], [place] [address] Lower Ext Joint Only (Routine) MR#: [id number] Acct: [id number] Name: DARWIN CULLEN Rep #: [id number] : 1965 F 59 From: Garcia Issa i DO PCP: Dr. Ginna Kowalski MD Status: REG CLI Study: Lower Ext Joint Only (Routine) Date of Exam: 0 12/19/24 Exam# [id number] Ordering Dr: Mrakel Leyva DPM EXAM: Noncontrast MRI of the left ankle. CLINICAL HISTORY: Left ankle sprain. Surgical planning for bone spur COMPARISON: None available TECHNIQUE: Multiplanar, multisequence MRI images of the left ankle were obtained without IV contrast. FINDINGS: The included distal Achilles tendon and proximal plantar fascia are intact. There is a small plantar calcaneal spur. The included distal tibia and fibula are intact. No osteochondral lesion of the talar dome. Small tibiotalar joint effusion. The major flexor and extensor tendons appear intact. There are moderately extensive degenerative changes of the tarsal bones. There are small cysts, measuring up to 6 mm, with some edema involving the proximal 3rd and 5th metatarsals. No acute displaced fracture of the left ankle or proximal metatarsals. Fat signal is maintained in the sinus tarsi. 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 There is some mild patchy marrow edema involving the inferior neck of the calcaneus, without discrete fracture line. The anterior and posterior distal syndesmotic ligaments of the distal tibia/fibula, as well as the anterior talofibular, calcaneofibular, and deltoid ligaments, are intact. 9 mm subcortical cyst of the lateral cuneiform may be secondary to degenerative joint disease. MRI/Lower Ext Joint Only (Routine) IMPRESSION: No acute bony abnormality of the left ankle. There is some mild marrow edema involving the anterior neck of the calcaneus. Major ligamentous structures of the left ankle and flexor/extensor tendons appear intact. Moderate degenerative changes amongst the tarsal bones. There are some subcortical cystic changes and adjacent marrow edema of the proximal 3rd and 5th metatarsals, which could be due to advanced degenerative joint disease versus the sequela of prior trauma. Reading Location[facility] CC: JOSE ALBERTO Leyva; Dr. Ginna Kowalski MD [employer] Supervisor: Signed Normal [facility] Magnetic resonance imaging r eportOrdered By: Garcia Phelan on 12-19-2024 Study report [facility] Imaging Services [address] [place] [address] Lower Ext Joint Only (Routine) MR#: [id number] Acct: [id number] Name: DARWIN CULLEN Rep #: [id number] : 1965 F 59 From: Aamir Phelan DO PCP: Dr. Ginna Kowalski MD Status: REG CLI Study:Lower Ext Joint Only (Routine) Date of Exam: 12/19/24 Exam# [id number] Ordering Dr: Alvarado Leyva DPM EXAM: Noncontrast MRI of the left ankle. CLINICAL HISTORY: Left ankle sprain. Surgical planning for bone spur COMPARISON: None available TECHNIQUE: Multiplanar, multisequence MRI images of the left ankle were obtained without IVcontrast. FINDINGS: The included distal Achilles tendon and proximal plantar fascia are intact. There is a small plantar calcaneal spur. The included distal tibia and fibula are intact. No osteochondral lesion of the talar dome. Small tibiotalar joint effusion. The major flexor and extensor tendons appear intact. There are moderately extensive degenerative changes of the tarsal bones. There are small cysts, measuring up to 6 mm, with some edema involving the proximal 3rd and 5th metatarsals. No acute displaced fracture of the left ankle or proximal metatarsals. Fat signal is maintained inthe sinus tarsi. 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 There is some mild patchy marrow edema involving the inferior neck of the calcaneus, without discrete fracture line. The anterior and posterior distal syndesmotic ligaments of the distal tibia/fibula, as well as the anterior talofibular, calcaneofibular, and deltoid ligaments, are intact. 9 mm subcortical cyst of the lateral cuneiform may be secondary to degenerative joint disease. MRI/Lower Ext Joint Only (Routine) IMPRESSION: No acute bony abnormality of the left ankle. There is some mild marrow edema involving the anterior neck of the calcaneus. Major ligamentous structures of the left ankle and flexor/extensor tendons appear intact. Moderate degenerative changes amongst the tarsal bones. There are some subcortical cystic changes and adjacent marrow edema of the proximal 3rd and 5th metatarsals, which could be due to advanced degenerative joint disease versus the sequela of prior trauma. Reading Location: [facility] CC: [facility] Dr. Markel Leyva; Dr. Ginna Kowalski MD ~ [employer] Supervisor: Signed [facility] Foot min 3 Viewson 4 Foot min 3 Views [facility] Imaging Services [address] [place] [address] Foot min 3 Views MR#: [id number] Acct: [id number] Name: DARWIN CULLEN Rep #: [id number] : 1965 F 59 From: Mario Small DO PCP: Dr. Ginna Kowalski MD Status: REG CLI Study: Foot min 3 Views Date of Exam: 07/22/24 Exam# [id number] Ordering Dr: Ginna Kowalski MD [id number] INDICATION: LEFT FOOT SPUR EXAMINATION/TECHNIQUE : X-RAY - LEFT XR Foot 4 VIEWS COMPARISON: __ FINDINGS: SOFT TISSUES: No soft tissue swelling or gas. No radiopaque foreign body. BONES/JOINTS: No acute fracture or subluxation.. Normal alignment. Calcaneal spurring, more prominent posteriorly at the Achilles tendon insertion. Preservation of the joint space.. No sclerotic or destructive changes observed. RAD/Foot min 3 Views IMPRESSION: No acute bony injury. Calcaneal spurring. Electronically Signed: Mario Small DO at 8:50 EST Reading Location ID and State: [facility] / [place] Tel [phone], Service support , CC: Dr. Ginna Kowalski MD [employer] House Supervisor: Signed [facility] HIP, UNI W/ Pelvis 2-3 Views on 07-22-2024 HIP, UNI W/ Pelvis 2-3 Views [facility] Imaging Services [address] [place], [place] [id number] HIP, UNI W/ Pelvis 2-3 Views MR#: [id number] Acct: [id number] Name: DARWIN CULLEN Rep #: [id number] : 1965 F 59 From: Mario Small DO PCP: Dr. Ginna Kowalski MD Status: [facility] Study: HIP, UNI W/ Pelvis 2-3 Views Date of Exam: 08/04 Exam# [id number] Ordering Dr: Ginna Kowalski MD [id number] INDICATION: LEFT HIP PAIN, ABNORMAL GAIT EXAMINATION/TECHNIQUE : X-RAY - XR Hip Unilateral with Pelvis when performed; 3 Views COMPARISON: __ FINDINGS: PELVIC BONES: No displaced fracture, destructive or sclerotic lesions. Note that overlapping bowel shadows may however obscure fine detail. Sacroiliac joints are unremarkable. No widening of the pubic symphysis. HIPS: The articular structures are unremarkable. No displaced fracture seen in this frontal view. SOFT TISSUES: No soft tissue swelling or gas. RAD/HIP, UNI W/ Pelvis 2-3 Views IMPRESSION: No evidence of displaced pelvic or hip fracture. Electronically Signed: Mario Small DO at 8:47 EST , CC: Dr. Ginna Kowalski MD [employer] House Supervisor: Signed Normal [facility] CBC, Employeeon 07-01-2024 Absolute Lymph 1.43 X10 3/uL Normal 0.83-4.51 [facility] Comment on above: Performed By: #### L 100.0200, L400.0100, L500.2900 #### [facility] [address] [place], [address] Absolute Neut 4.0 X10 3/uL Normal 2.0-7.7 [facility] Comment on above: Performed By: #### L 100.0200, L400.0100, L500.2900 #### [facility] [address] [place], [address] Basophils/100 WBC (Bld) 1.0 % Normal 0-1 [facility] Comment on above: Performed By: #### L 100.0200, L400.0100, L500.2900 #### [facility] [address] [place], [address] Eosinophils/100 WBC (Bld) 1.3 % Normal 0-5 [facility] Comment on above: Performed By: #### L 100.0200, L400.0100, L500.2900 #### [facility] [address] [place], [address] Erythrocyte distribution width (RBC) [Ratio] 12.9 % Normal 11.6-14.6 [facility] Comment on above: Performed By: #### L 100.0200, L400.0100, L500.2900 #### [facility] [address] [place], [address] Hematocrit (Bld) [Volume fraction] 42.6 % Normal 37-47 [facility] Comment on above: Performed By: #### L 100.0200, L400.0100, L500.2900 #### [facility] [address] [place], [address] Hemoglobin (Bld) [Mass/Vol] 14.1 g/dL Normal 12.0-15.0 [facility] Comment on above: Performed By: #### L 100.0200, L400.0100, L500.2900 #### [facility] [address] [place], [address] Lymphocytes/100 WBC (Bld) 23.8 % Normal 19-41 [facility] Comment on above: Performed By: #### L 100.0200, L400.0100, L500.2900 #### [facility] [address] [place], [id number] MCH (RBC) [Entitic mass] 31.3 pg Normal 27.0-32.0 [facility] Comment on above: Performed By: #### L 100.0200, L400.0100, L500.2900 #### [facility] [address] [place], [place], MCHC (RBC) [Mass/Vol] 33.1 g/dL Normal 32-36 [facility] Comment on above: Performed By: #### L 100.0200, L400.0100, L500.2900 #### [facility] [address] [place], [address] MCV (RBC) [Entitic vol] 94.5 fL Normal 81-99 [facility] Comment on above: Performed By: #### L 100.0200, L400.0100, L500.2900 #### [facility] [address] [place], [address] Monocytes/100 WBC (Bld) 7.8 % Normal 0-10 [facility] Comment on above: Performed By: #### L 100.0200, L400.0100, L500.2900 #### [facility] [address] [place], [address] Neutrophils/100 WBC (Bld) 65.9 % Normal 47-70 [facility] Comment on above: Performed By: #### L 100.0200, L400.0100, L500.2900 #### [facility] [address] [place], [address] NRBC # 0.00 10 3/uL Normal 0-5 [facility] Comment on above: Performed By: #### L 100.0200, L400.0100, L500.2900 #### [facility] [address] [place], [address] Nucleated RBC (Bld) [#/Vol] 0 10*3/uL Normal 0-5 [facility] Comment on above: Performed By: #### L 100.0200, L400.0100, L500.2900 #### [facility] [address] [place], [address] Platelet mean volume (Bld) [Entitic vol] 9.1 fL Normal 6.2-12.0 [facility] Comment on above: Performed By: #### L 100.0200, L400.0100, L500.2900 #### [facility] [address] [place], [address] Platelets (Bld) [#/Vol] 333 10*3/uL Normal 150-450 [facility] Comment on above: Performed By: #### L 100.0200, L400.0100, L500.2900 #### [facility] [address] [place], [address] RBC (Bld) [#/Vol] 4.51 10*6/uL Normal 4.2-5.4 [facility] Comment on above: Performed By: #### L 100.0200, L400.0100, L500.2900 #### [facility] [address] [place] [place], [id number] RDW SD 45.1 fl High 35.1-43.9 [facility] Comment on above: Performed By: #### L 100.0200, L400.0100, L500.2900 #### [facility] [address] [place] [place], [id number] WBC (Bld) [#/Vol] 6.0 10*3/uL Normal 4.4-11.0 [facility] Comment on above: Performed By: #### L 100.0200, L400.0100, L500.2900 #### [facility] [address] [place] [place], [id number] Employee [employer] 4 Albumin [Mass/Vol] 3.5 g/dL Normal 3.2-5.0 [facility] Comment on above: Performed By: #### L 100.0200, L400.0100, L500.2900 #### [facility] [address] [place] [place], [id number] Albumin/Globulin [Mass ratio] 0.9 {ratio} Normal 0.9-2.4 [facility] Comment on above: Performed By: #### L 100.0200, L400.0100, L500.2900 #### [facility] [address] [place], [address] ALK P 86 U/L Normal 45-117 [facility] Comment on above: Performed By: #### L 100.0200, L400.0100, L500.2900 #### [facility] [address] [place], [address] ALT [Catalytic activity/Vol] 25 U/L Normal 13-56 [facility] Comment on above: Performed By: #### L 100.0200, L400.0100, L500.2900 #### [facility] [address] [place], [address] AST [Catalytic activity/Vol] 13 U/L Low 15-37 [facility] Comment on above: Performed By: #### L 100.0200, L400.0100, L500.2900 #### [facility] [address] [place], [address] Bilirubin [Mass/Vol] 0.30 mg/dL Normal 0.20-1.00 [facility] Comment on above: Result Comment: For patients on eltrombopag therapy, use of Dimension Cordell TBIL is not recommended. Performed By: #### L 100.0200, L400.0100, L500.2900 #### [facility] [address] [place], [address] Bilirubin.direct [Mass/Vol] 0.12 mg/dL Normal 0.00-0.30 [facility] Comment on above: Performed By: #### L 100.0200, L400.0100, L500.2900 #### [facility] [address] [place], [address] BUN/CRE 16.6 RATIO Normal 10-20 [facility] Comment on above: Performed By: #### L 100.0200, L400.0100, L500.2900 #### [facility] [address] [place], [address] CA,Total 9.2 mg/dL Normal 8.5-10.1 [facility] Comment on above: Performed By: #### L 100.0200, L400.0100, L500.2900 #### [facility] [address] [place], [address] Chloride [Moles/Vol] 108 mmol/L High 98-107 [facility] Comment on above: Performed By: #### L 100.0200, L400.0100, L500.2900 #### [facility] [address] [place], [address] CHOL:HDL 3.60 Normal [facility] Comment on above: Performed By: #### L 100.0200, L400.0100, L500.2900 #### [facility] [address] [place], [address] Cholesterol [Mass/Vol] 211 mg/dL High 200 [facility] Comment on above: Result Comment: <200 mg/dL Desirable 200-240 mg/dL Borderline >240 mg/dL High Risk Performed By: #### L 100.0200, L400.0100, L500.2900 #### [facility] [address] [place], [address] Cholesterol in HDL [Mass/Vol] 58 mg/dL Normal [facility] Comment on above: Result Comment: The drugs N-Acetylcysteine and Metamizole may falsely depress this assay. Reference Range HDL <40 mg/dL Low HDL Cholesterol HDL >or= 60 mg/dL High HDL Cholesterol Performed By: #### L 100.0200, L400.0100, L500.2900 #### [facility] [address] [place], [address] Cholesterol in LDL [Mass/Vol] 137 mg/dL High 0-130 [facility] Comment on above: Performed By: #### L 100.0200, L400.0100, L500.2900 #### [facility] [address] [place], [address] Cholesterol in VLDL [Mass/Vol] 16 mg/dL Normal 5-40 [facility] Comment on above: Performed By: #### L 100.0200, L400.0100, L500.2900 #### [facility] [address] [place], [address] CO2 [Moles/Vol] 29.0 mmol/L Normal 21.0-32.0 [facility] Comment on above: Performed By: #### L 100.0200, L400.0100, L500.2900 #### [facility] [address] [place], [address] Creatinine [Mass/Vol] 0.60 mg/dL Normal 0.55-1.02 [facility] Comment on above: Result Comment: The validity of the calculated GFR GFRAA in patients over 70 years has not been determined. Clinical correlation is essential. Performed By: #### L 100.0200, L400.0100, L500.2900 #### [facility] [address] [place], [address] EST GFR - AA 131 mL/min Normal >60 [facility] Comment on above: Result Comment: Afri can Ivorian GFR Calc Performed By: #### L 100.0200, L400.0100, L500.2900 #### [facility] [address] [place], [address] GAP 5 Normal 5-15 [facility] Comment on above: Performed By: #### L 100.0200, L400.0100, L500.2900 #### [facility] [address] [place], [address] GFR/1.73 sq M.predicted among non-blacks MDRD (S/P/Bld) [Vol rate/Area] 108 mL/min/{1.73_m2} Normal >60 [facility] Comment on above: Result Comment: Non- GFR Calc Performed By: #### L 100.0200, L400.0100, L500.2900 #### [facility] [address] [place], [address] Globulin (S) [Mass/Vol] 3.9 g/dL Normal 2.2-4.2 [facility] Comment on above: Performed By: #### L 100.0200, L400.0100, L500.2900 #### [facility] [address] [place], [address] Glucose [Mass/Vol] 106 mg/dL Normal 74-106 [facility] Comment on above: Result Comment: Fast ing Glucose result from 100 to 125 mg/dL suggests IMPAIRED HOMEOSTASIS per A.D.A. criteria. Performed By: #### L 100.0200, L400.0100, L500.2900 #### [facility] [address] [place], [address] LDH 204 U/L Normal 84-246 [facility] Comment on above: Performed By: #### L 100.0200, L400.0100, L500.2900 #### [facility] [address] [place], [address] Phosphate [Mass/Vol] 3.3 mg/dL Normal 2.5-4.9 [facility] Comment on above: Performed By: #### L 100.0200, L400.0100, L500.2900 #### [facility] [address] [place] [place], [address] Potassium [Moles/Vol] 3.7 mmol/L Normal 3.5-5.1 [facility] Comment on above: Performed By: #### L 100.0200, L400.0100, L500.2900 #### [facility] [address] [place] [place], [address] Sodium [Moles/Vol] 142 mmol/L Normal 136-145 [facility] Comment on above: Performed By: #### L 100.0200, L400.0100, L500.2900 #### [facility] [address] [place] [place], [address] T PROT 7.4 g/dL Normal 6.4-8.2 [facility] Comment on above: Performed By: #### L 100.0200, L400.0100, L500.2900 #### [facility] [address] [place] [place], [address] Triglyceride [Mass/Vol] 80 mg/dL Normal [facility] Comment on above: Result Comment: The drugs N-Acetylcysteine and Metamizole may falsely depress this assay. Serum Triglycerides Reference Interval Normal <150 mg/dL Borderline high 150 - 199 mg/dL High 200 - 499 mg/dL Very High > or = 500 mg/dL Performed By: #### L 100.0200, L400.0100, L500.2900 #### [facility] [address] [place] [place], [address] Urea nitrogen [Mass/Vol] 10 mg/dL Normal 7-18 [facility] Comment on above: Performed By: #### L 100.0200, L400.0100, L500.2900 #### [facility] [address] [place], [address] URIC 4.3 mg/dL Normal 2.6-6.0 [facility] Comment on above: Result Comment: The drugs N-Acetylcysteine and Metamizole may falsely depress this assay. Performed By: #### L 100.0200, L400.0100, L500.2900 #### [facility] [address] [place] [place], [address] Urinalysis, Employeeon 07-01 BILIRUBIN URINE Normal Negative [facility] Comment on above: Order Comment: CLEAN CATCH Result Comment: NOT WANTED Performed By: #### L 100.0200, L400.0100, L500.2900 #### [facility] [address] [place] [place], [address] Clarity (U) Normal Clear [facility] Comment on above: Order Comment: CLEAN CATCH Result Comment: NOT WANTED Performed By: #### L 100.0200, L400.0100, L500.2900 #### [facility] [address] [place] [place], [address] Color (U) Normal Yellow [facility] Comment on above: Order Comment: CLEAN CATCH Result Comment: NOT WANTED Performed By: #### L 100.0200, L400.0100, L500.2900 #### [facility] [address] [place] [place], [address] GLUCOSE, UR Normal Normal [facility] Comment on above: Order Comment: CLEAN CATCH Result Comment: NOT WANTED Performed By: #### L 100.0200, L400.0100, L500.2900 #### [facility] [address] [place] [place], [address] KETONE UR Normal Negative [facility] Comment on above: Order Comment: CLEAN CATCH Result Comment: NOT WANTED Performed By: #### L 100.0200, L400.0100, L500.2900 #### [facility] [address] [place], [address] LEUK ESTERASE Normal Negative [facility] Comment on above: Order Comment: CLEAN CATCH Result Comment: NOT WANTED Performed By: #### L 100.0200, L400.0100, L500.2900 #### [facility] [address] [place], [address] Nitrite Ql (U) Normal Negative [facility] Comment on above: Order Comment: CLEAN CATCH Result Comment: NOT WANTED Performed By: #### L 100.0200, L400.0100, L500.2900 #### [facility] [address] [place], [address] OCCULT BLOOD-UR Normal Negative [facility] Comment on above: Order Comment: CLEAN CATCH Result Comment: NOT WANTED Performed By: #### L 100.0200, L400.0100, L500.2900 #### [facility] [address] [place], [address] pH UR Normal 5.0 - 8.0 [facility] Comment on above: Order Comment: CLEAN CATCH Result Comment: NOT WANTED Performed By: #### L 100.0200, L400.0100, L500.2900 #### [facility] [address] [place], [address] PROT DIPSTX Normal Negative [facility] Comment on above: Order Comment: CLEAN CATCH Result Comment: NOT WANTED Performed By: #### L 100.0200, L400.0100, L500.2900 #### [facility] [address] [place], [address] SP.GR. DIPSTX Normal 1.002-1.030 [facility] Comment on above: Order Comment: CLEAN CATCH Result Comment: NOT WANTED Performed By: #### L 100.0200, L400.0100, L500.2900 #### [facility] [address] [place], [address] UR Preservative Normal [facility] Comment on above: Order Comment: CLEAN CATCH Result Comment: NOT WANTED Performed By: #### L 100.0200, L400.0100, L500.2900 #### [facility] [address] [place], [address] UROBILI Normal Normal [facility] Comment on above: Order Comment: CLEAN CATCH Result Comment: NOT WANTED Performed By: #### L 100.0200, L400.0100, L500.2900 #### [facility] [address] [place], [address] Absolute lymphocyte countOrd ered By: Panda Young on 12-16-2023 Lymphocytes Auto (Unsp spec) [#/Vol] 1.86 10*3/uL 0.83-4.51 [facility] Automated lymphocyte count a s percentage of total leukocytesOrdered By: Panda Young on 12-16-2023 Lymphocytes/100 WBC Auto (Unsp spec) 35.5 % 19-41 [facility] Basophil percentageOrdered B y: Panda Young on 12-16-2023 Basophils/100 WBC (Bld) 0.6 % 0-1 [facility] Chloride [Moles/Vol] 111 mmol/L 98-107 [facility] Eosinophils/100 WBC (Bld) 1.9 % 0-5 [facility] Glucose [Mass/Vol] 98 mg/dL 74-106 [facility] Hemoglobin (Bld) [Mass/Vol] 13.2 g/dL 12.0-15.0 [facility] Monocytes/100 WBC (Bld) 8.8 % 0-10 [facility] Neutrophils (Bld) [#/Vol] 2.8 10*3/uL 2.0-7.7 [facility] Neutrophils/100 WBC (Bld) 53.0 % 47-70 [facility] Potassium [Moles/Vol] 3.9 mmol/L 3.5-5.1 [facility] Sodium [Moles/Vol] 140 mmol/L 136-145 [facility] WBC (Bld) [#/Vol] 5.2 10*3/uL 4.4-11.0 [facility] Determination of erythrocyte mean corpuscular volume (MCV)Ordered By: Panda Young on 12-16-2023 MCV (RBC) [Entitic vol] 94.1 fL 81-99 [facility] Erythrocyte distribution wid th ratioOrdered By: Panda Young on 12-16-2023 Erythrocyte distribution width (RBC) [Ratio] 12.5 % 11.6-14.6 [facility] Erythrocyte distribution wid th standard deviationOrdered By: Panda Young on 12-16-2023 Erythrocyte distribution width (RBC) [Entitic vol] 43.1 fL 35.1-43.9 [facility] Hematocrit Auto (Bld) [Volum e fraction]Ordered By: Panda Young on 12-16-2023 Hematocrit (Bld) [Volume fraction] 39.6 % 37-47 [facility] Immature granulocytes/100 WB C Auto (Bld)Ordered By: Panda Young on 12-16-2023 Immature granulocytes/100 WBC (Bld) 0.200 % 0.0-0.9 [facility] Comment on above: IG% - Immature Granu locytes (promyelocytes, myelocytes and metamyelocytes) > 1% indicates that a LEFT SHIFT is Present. Laboratory - Chemistry and C hemistry - challengeOrdered By: Panda Young on 12-16-2023 CO2 [Moles/Vol] 25.0 mmol/L 21.0-32.0 [facility] Urea nitrogen/Creatinine [Mass ratio] 20.4 mg/mg 10-20 [facility] - Hematology and Cell countsOrdered By: Panda Young on 12-16-2023 MCH (RBC) [Entitic mass] 31.4 pg 27.0-32.0 [facility] MCHC (RBC) [Mass/Vol] 33.3 g/dL 32-36 [facility] Nucleated RBC/100 WBC (Bld) [Ratio] 0 % 0-5 [facility] Platelet mean volume (Bld) [Entitic vol] 9.4 fL 6.2-12.0 [facility] Platelets (Bld) [#/Vol] 266 10*3/uL 150-450 [facility] No Panel InformationOrdered By: Panda Young on 12-16-2023 Estimated Creatinine Clearance Calc 111.96 ml/min [facility] Estimated GFR (MDRD) Amer 123 mL/min >60 [facility] Comment on above: GFR Calc Estimated GFR (MDRD) Non-Af Amer 102 mL/min >60 [facility] Comment on above: Non- GFR Calc RBC Auto (Bld) [#/Vol]Ordere d By: Panda Young on 12-16-2023 RBC (Bld) [#/Vol] 4.21 10*6/uL 4.2-5.4 [facility] Serum or plasma calcium laura urement (mass/volume)Ordered By: Panda Young on 12-16-2023 Calcium [Mass/Vol] 8.7 mg/dL 8.5-10.1 [facility] Serum or plasma creatinine m easurement (mass/volume)Ordered By: Panda Young on 12-16-2023 Creatinine [Mass/Vol] 0.64 mg/dL 0.55-1.02 [facility] Comment on above: The validity of the calculated GFR & GFRAA in patients over 70 years has not been determined. Clinical correlation is essential. Serum or plasma urea nitroge n measurement (mass/volume)Ordered By: Panda Young on 12-16-2023 Urea nitrogen [Mass/Vol] 13 mg/dL 7-18 [facility] Thin prep Papanicolaou smear with manual screeningOrdered By: Panda Young on 12-16-2023 Thin prep Papanicolaou smear with manual screening 4 5-15 [facility] Absolute lymphocyte countOrd ered By: Sol Shirley on 06-21-2023 Lymphocytes Auto (Unsp spec) [#/Vol] 2.71 10*3/uL 0.83-4.51 [facility] Basophil percentageOrdered B y: Sol Shirley on 06-21-2023 Basophil percentage 0 SEEN /hpf 0-5 [facility] Basophils/100 WBC (Bld) 1.2 % 0-1 [facility] Bilirubin [Mass/Vol] 0.20 mg/dL 0.20-1.00 [facility] Comment on above: For patients on eltr ombopag therapy, use of Dimension Cordell TBIL is not recommended. Chloride [Moles/Vol] 112 mmol/L 98-107 [facility] Eosinophils/100 WBC (Bld) 1.6 % 0-5 [facility] Glucose [Mass/Vol] 120 mg/dL 74-106 [facility] Comment on above: Fasting Glucose resu lt from 100 to 125 mg/dL suggests IMPAIRED HOMEOSTASIS per A.D.A. criteria. Neutrophils (Bld) [#/Vol] 3.4 10*3/uL 2.0-7.7 [facility] Neutrophils/100 WBC (Bld) 49.7 % 47-70 [facility] Potassium [Moles/Vol] 3.6 mmol/L 3.5-5.1 [facility] Protein [Mass/Vol] 7.4 g/dL 6.4-8.2 [facility] Sodium [Moles/Vol] 141 mmol/L 136-145 [facility] WBC (Bld) [#/Vol] 6.8 10*3/uL 4.4-11.0 [facility] Bilirubin Test strip Ql (U)O rdered By: Sol Shirley on 06-21-2023 Bilirubin Ql (U) Negative Negative [facility] Blood erythrocytes count (nu mber/volume)Ordered By: Sol Shirley on 06-21-2023 RBC (Bld) [#/Vol] 4.75 10*6/uL 4.2-5.4 [facility] Blood hemoglobin measurement (mass/volume)Ordered By: Sol Shirley on 06-21-2023 Hemoglobin (Bld) [Mass/Vol] 14.9 g/dL 12.0-15.0 [facility] Blood lymphocytes/100 leukoc ytesOrdered By: Sol Shirley on 06-21-2023 Lymphocytes/100 WBC (Bld) 39.9 % 19-41 [facility] Blood monocytes/100 leukocyt esOrdered By: Sol Shirley on 06-21-2023 Monocytes/100 WBC (Bld) 7.5 % 0-10 [facility] Blood platelet mean volumeOr dered By: Sol Shirley on 06-21-2023 Platelet mean volume (Bld) [Entitic vol] 9.1 fL 6.2-12.0 [facility] Calcium oxalate crystals det ection in urine sediment by light microscopyOrdered By: Sol Shirley on 06-21-2023 Calcium oxalate crystals LM Ql (Urine sed) 2+ /hpf [facility] Determination of erythrocyte mean corpuscular volume (MCV)Ordered By: Sol Shirley on 06-21-2023 MCV (RBC) [Entitic vol] 95.6 fL 81-99 [facility] Direct bilirubinOrdered By: Sol Shirley on 06-21-2023 Bilirubin.direct [Mass/Vol] 0.07 mg/dL 0.00-0.30 [facility] Hematocrit Auto (Bld) [Volum e fraction]Ordered By: Sol Shirley on 06-21-2023 Hematocrit (Bld) [Volume fraction] 45.4 % 37-47 [facility] Ketones Test strip Ql (U)Ord ered By: Sol Shirley on 06-21-2023 Ketones Ql (U) Negative Negative [facility] - Chemistry and C hemistry - challengeOrdered By: Sol Shirley on 06-21-2023 ALP [Catalytic activity/Vol] 85 U/L 45-117 [facility] ALT [Catalytic activity/Vol] 28 U/L 13-56 [facility] CO2 [Moles/Vol] 26.0 mmol/L 21.0-32.0 [facility] Globulin (S) [Mass/Vol] 4.0 g/dL 2.2-4.2 [facility] Urea nitrogen/Creatinine [Mass ratio] 19.7 mg/mg 10-20 [facility] - Hematology and Cell countsOrdered By: Sol Shirley on 06-21-2023 Erythrocyte distribution width (RBC) [Entitic vol] 44.2 fL 35.1-43.9 [facility] Erythrocyte distribution width (RBC) [Ratio] 12.6 % 11.6-14.6 [facility] Immature granulocytes/100 WBC (Bld) 0.100 % 0.0-0.9 [facility] Comment on above: IG% - Immature Granu locytes (promyelocytes, myelocytes and metamyelocytes) > 1% indicates that a LEFT SHIFT is Present. MCH (RBC) [Entitic mass] 31.4 pg 27.0-32.0 [facility] Nucleated RBC/100 WBC (Bld) [Ratio] 0 % 0-5 [facility] MCHC Auto (RBC) [Mass/Vol]Or dered By: Sol Shirley on 06-21-2023 MCHC (RBC) [Mass/Vol] 32.8 g/dL 32-36 [facility] Mucus LM Ql (Urine sed)Order ed By: Sol Shirley on 06-21-2023 Mucus Ql (Urine sed) 0 SEEN /hpf [facility] Nitrite Test strip Ql (U)Ord ered By: Sol Shirley on 06-21-2023 Nitrite Ql (U) Negative Negative [facility] No Panel InformationOrdered By: Sol Shirley on 06-21-2023 Estimated Creatinine Clearance Calc 86.98 ml/min [facility] Estimated GFR (MDRD) Amer 118 mL/min >60 [facility] Comment on above: GFR Calc Estimated GFR (MDRD) Non-Af Amer 98 mL/min >60 [facility] Comment on above: Non- GFR Calc Platelets bldOrdered By: Johanna Shirley on 06-21-2023 Platelets (Bld) [#/Vol] 319 10*3/uL 150-450 [facility] Protein Test strip Ql (U)Ord ered By: Sol Shirley on 06-21-2023 Protein Ql (U) 15 mg/dl Negative [facility] Serum or plasma albumin laura urement (mass/volume)Ordered By: Sol Shirley on 06-21-2023 Albumin [Mass/Vol] 3.4 g/dL 3.2-5.0 [facility] Serum or plasma calcium laura urement (mass/volume)Ordered By: Sol Shirley on 06-21-2023 Calcium [Mass/Vol] 9.0 mg/dL 8.5-10.1 [facility] Serum or plasma creatinine m easurement (mass/volume)Ordered By: Sol Shirley on 06-21-2023 Creatinine [Mass/Vol] 0.66 mg/dL 0.55-1.02 [facility] Comment on above: The validity of the calculated GFR & GFRAA in patients over 70 years has not been determined. Clinical correlation is essential. Serum or plasma urea nitroge n measurement (mass/volume)Ordered By: Sol Shirley on 06-21-2023 Urea nitrogen [Mass/Vol] 13 mg/dL 7-18 [facility] Squamous epithelial cells de tection in urine sediment by light microscopyOrdered By: Sol Shirley on 06-21-2023 Epithelial cells.squamous LM Ql (Urine sed) 0-5 SEEN /hpf 5-10 [facility] Thin prep Papanicolaou smear with manual screeningOrdered By: Sol Shirley on 06-21-2023 Thin prep Papanicolaou smear with manual screening 9 U/L 15-37 [facility] Thin prep Papanicolaou smear with manual screening 3 5-15 [facility] Urine blood detectionOrdered By: Sol Shirley on 06-21-2023 RBC Ql (U) 10 /ul Negative [facility] RBC Ql (U) 0 SEEN /hpf 0-5 [facility] Urine clarityOrdered By: Johanna Shirley on 06-21-2023 Clarity (U) Clear Clear [facility] Urine color determinationOrd ered By: Sol Shirley on 06-21-2023 Color (U) Yellow Yellow [facility] Urine glucose detectionOrder ed By: Sol Shirley on 06-21-2023 Glucose Ql (U) Normal mg/dl Normal [facility] Urine leukocyte esterase det ection by dipstickOrdered By: Sol Shirley on 06-21-2023 Leukocyte esterase Test strip Ql (U) 25 /ul Negative [facility] Urine pHOrdered By: Sol Shirley on 06-21-2023 pH (U) 6.0 [pH] 5.0 - 8.0 [facility] Urine sediment bacteria coun t by microscopy (number/high power field)Ordered By: Sol Shirley on 06-21-2023 Bacteria LM.HPF (Urine sed) [#/Area] 0 /[HPF] None Seen [facility] Urine specific gravity measu rementOrdered By: Sol Shirley on 06-21-2023 Specific gravity (U) [Rel density] 1.020 1.002-1.030 [facility] Urobilinogen Auto test strip Ql (U)Ordered By: Sol Shirley on 06-21-2023 Urobilinogen Ql (U) Normal mg/dl Normal [facility] - Microbiology an d Antimicrobial susceptibilityon 04-21-2022 SARS-CoV-2 (COVID-19) RNA CONSUELO+probe Ql (Unsp spec) Detected [facility] Work Phone: CNOVon 12-21-2018 [facility] Office Visit (WENDI ) DARWIN CULLEN ([id number]) 1965 F Date Time Provider Department 12/21/18 12:30 PM SHAYY WALLACE During your visit today, we recorded the following information about you: Pulse Respiration Blood pressure Weight 62/minute 16/minute 124/70 91.6 kg Height 1.676 m Shayy Wallace MD 12/21/2018 1:12 PM Signed NEUROSURGERY CONSULT NOTE Shayy Wallace MD Date of visit: December 20, 2018 Patient Name: Ms.Joanne Cullen Date of : 1965 Current Age: [age] year old Sex: female MRN/E# [id number] Chief Complaint: Patient presents with: Back Pain: left knee HISTORY OF PRESENT ILLNESS : The patient is a 53 year old, right handed female who is referred by Dr. Kebede for neurosurgical evaluation. Ms. Cullen presents to the office today as a new patient with imaging for evaluation of low back pain. Patient is status post an L45 microdiscectomy [address] Kuhn. States since then she has had numbness in the left lower extremity extending to the lateral aspect of the foot. Recently she underwent arthroscopic repair of a left knee meniscus tear. Since then she has developed worsening radicular symptoms, numbness and weakness in the left lower extremity as well as new symptoms in the right. Tells me she underwent an EMG/NC test which prompted an MRI of the lumbar spine which she brings for review today. We do not have the EMG/NC report for review but will attempt to obtain it. She is here for image review, evaluation and plan of care. Symptoms: low back pain PREVIOUS CONSERVATIVE TREATMENTS: RX NSAIDS for 3 Months or Greater (meloxicam (Mobic)) Physical Therapy: Date(s) 6 months ago Dry needling PREVIOUS SURGERY: SURGERY #1: L4-5 surgery, Dr. Hidalgo 2002 PAIN EVALUATION 12/21/2018 Pain Level: 3 Pain Location: Back-Lower left knee pain. left knee pain. Description: Burning;Tingling;Numb ness;Radiating Duration Amount of Time: 2 Duration Units: Years Frequency: Intermittent Intervention: Medication;Therapeuti c techniques-CPRP;Heat; Cold;Relaxation PAST MEDICAL HISTORY Diagnosis Date - Bleeding ulcer - Bowel disease - Insomnia, unspecified - Irritable bowel syndrome - Other forms of migraine - Rheumatoid arthritis(714.0) - Thyroid disorder PAST SURGICAL HISTORY Procedure Laterality Date - DELIVERY ONLY 2000 , low cervical - COLONOSCOPY W/BX 03/27/13 Normal Colonoscopy - Bx - unremarkable - COLONS W/REM POLYP HT BX 10/28/03 Normal colonoscopy - EGD W/O BRSH SPECIMEN W/BX Gastric Ulcer - EGD W/O BRSH SPECIMEN W/BX 03/27/13 normal EGD Bx - mild gastritis, H pylori negative - EGD W/O OR W/BRUSH/WASH Resolved Ulcers - EGD W/O OR W/BRUSH/WASH EGD - LAP CHOLECYSTECT/CHOLANGI OGRAPHY Normal IOC - PAST SURGICAL HISTORY OF 2001 back l4 and l5 - PAST SURGICAL HISTORY OF 2006 left rotator cuff and left carpal tunnel - PAST SURGICAL HISTORY OF right breast biopsy--benign @ 21 years old - PAST SURGICAL HISTORY OF 06/22 presacral mass removed-benign FAMILY HISTORY Problem Relation Age of Onset - Breast Cancer Mother - Breast Cancer Maternal Grandmother - Hypertension Father - Ischemic Heart Disease Father - Cancer Maternal Grandfather kidney ALLERGIES Allergen Reactions - Percocet [Oxycodone* Hives, Itching - Vicodin [Hydrocodon* Itching Current Outpatient Medications: escitalopram (ESCITALOPRAM) 5 mg tablet Take 2 tablets by mouth once daily. Disp: Rfl: 0 pantoprazole (PROTONIX) 40 mg tablet Take 1 tablet by mouth once daily. Disp: Rfl: 0 FA/MV,CA,IRON,MIN/LYC OPENE/LUT (MULTIVITAL ORAL) Take by mouth once daily. Disp: Rfl: ibuprofen 800 mg tablet Take 1 tablet by mouth every 6 hours as needed for Pain. Disp: 40 tablet Rfl: 0 sumatriptan (IMITREX) 6 mg/0.5 mL Soln Inject 6 mg subcutaneously as needed. for migraine Disp: Rfl: LORazepam (ATIVAN) 0.5 mg Tab Take 1 tablet by mouth three times daily as needed. Disp: Rfl: 0 ondansetron (ZOFRAN) 4 mg tablet Take 1 tablet by mouth every 8 hours as needed. Disp: Rfl: 0 temazepam 15 mg cap Take by mouth at bedtime as needed. Disp: Rfl: 0 polyethylene glycol 3350 (MIRALAX) 17 gram/dose powder As directed (Patient not taking: Reported on 12/21/2018 ) Disp: 3 Bottle Rfl: 2 acetaminophen (TYLENOL) 325 mg tablet Take 650 mg by mouth every 6 hours as needed. Disp: Rfl: ascorbic acid (VITAMIN C) 500 mg tablet Take 500 mg by mouth once daily. Disp: Rfl: No current facility-administered medications for this visit. REVIEW OF SYSTEMS Review of Systems Constitutional: Negative for chills, diaphoresis (Negative for night sweats.) and fever. HENT: Negative for ear discharge and rhinorrhea. Eyes: Negative for discharge. Respiratory: Negative for cough, shortness of breath and wheezing. Cardiovascular: Negative for chest pain, palpitations and leg swelling. Gastrointestinal: Negative for constipation, diarrhea, nausea and vomiting. Endocrine: Negative for cold intolerance and heat intolerance. Genitourinary: Negative for frequency. Negative for urinary incontinence and urinary retention. Musculoskeletal: Positive for back pain. Negative for joint swelling, myalgias and neck pain. Skin: Negative for rash (Negative for hives and skin lesions.). Allergic/Immunologic: Negative for environmental allergies and food allergies. Negative for contact allergy, seasonal allergies. Neurological: Positive for numbness (Negative for numbness in extremities.). Negative for dizziness, seizures, syncope, weakness, light-headedness and headaches. Hematological: Does not bruise/bleed easily. Psychiatric/Behaviora l: The patient is not nervous/anxious. Negative for depression. OBJECTIVE: BP 124/70 Pulse 62 Resp 16 Ht 5' 6 (1.68m) Wt 202 lb (91.6kg) SpO2 95% BMI 32.62 kg/(m2). Mental State : Awake oriented to time place and person. Speech normal, no receptive or expressive speech deficit. Recent and remote memory normal Cranial Nerves : II: No visual field cut no blurring III, IV, normal, no double vision or drooping VII No paresis on either side. VIII No gross hearing deficit IX,X,XI No deficit XIITongue midline Sensory : Positive numbness to the left lower extremity, lateral aspect and lateral left foot. Normal Sensation in upper and lower extremities and trunk to touch and noxious stimuli. Motor : Weak/absent plantar flexion in the left foot. Normal muscle tone. No weakness in the upper or lower extremities proximally and distally. 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 No spasticity or tremor Reflexes : Absent ankle reflex, left foot. DTRs symmetrical. No pathological reflexes. Coordination : Normal finger to nose and rapid alternating movements. Gait and Station: Normal Data Review IMAGING STUDIES: MRI of the lumbar spine demonstrates evidence of prior microdiscectomy. There is left-sided significant foraminal narrowing related to a disc displacement eccentric toward the left foramen. She has widespread degenerative disc disease as well. Personal review of medical records: I reviewed with the patient, history, physical exam, the images and the chart. 1. Intervertebral disc disorder with radiculopathy of lumbar region This is a 53-year-old female who presents for evaluation of symptoms of left plantar flexion weakness which developed following knee surgery. Her MRI demonstrates L4-5 foraminal stenosis secondary to disc displacement does not fully explain her symptoms as there is a lack of clinical correlation between her imaging findings and her physical examination. She is undergone a EMG nerve conduction study. She did not bring the report of the study with her. I told her she should come back to see me once her plain radiographs are complete and bring a copy of her EMG and nerve conduction study with her. All of her questions been addressed in detail. - XR LUMBAR MOTION 4V AP/LAT/ FLEX/EXT; Future MD Cassandra Orona APRN.PRODUCT DISTRIBUTION SPECIALIST 12/21/2018 1:19 PM Signed Addended by: CASSANDRA AGUSTIN [facility] on: 12/21/2018 01:19 PM Modules accepted: Orders Referring Provider: CARA PATEL [[id number]] Allergies As of Date: 12/21/2018 Noted Allergy Reaction PERCOCET (OXYCODONE-ACETAMINOP HEN)07/17/2008 4 - Hives 9 - Itching VICODIN (HYDROCODONE-ACETAMIN OPHE*06/25/2012 9 - Itching Date Reviewed: 12/21/2018 Reviewed by: Shayy Wallace - Fully Assessed Reason for Visit: Back Pain [12] Cmt: left knee Primary Visit Diagnosis:Interverteb ral disc disorder with radiculopathy of lumbar region [M51.16] Prescriptions as of 12/21/2018 Sig: ESCITALOPRAM 5 MG TABLET Take 2 tablets by mouth once * PANTOPRAZOLE 40 MG TABLET,DEL* Take 1 tablet by mouth once d* * MULTIVITAL ORAL Take by mouth once daily. * IBUPROFEN 800 MG TABLET Take 1 tablet by mouth every * * SUMATRIPTAN 6 MG/0.5 ML SUBCU* Inject 6 mg subcutaneously as* LORAZEPAM 0.5 MG TABLET Take 1 tablet by mouth three * ONDANSETRON HCL 4 MG TABLET Take 1 tablet by mouth every * TEMAZEPAM 15 MG CAPSULE Take by mouth at bedtime as * POLYETHYLENE GLYCOL 3350 17 G* As directed Patient not taking: Reported on 12/21/2018 * ACETAMINOPHEN 325 MG TABLET Take 650 mg by mouth every 6 * * ASCORBIC ACID (VITAMIN C) 500* Take 500 mg by mouth once nanda* Problem List As Of Date 12/21/2018 Noted Resolved ABDOMINAL PAIN RUQ [R10.11] INVALID FOR* ACUTE GASTRITIS W HEMORRHAGE [K29.01] INVALID FOR* Lump or mass in breast [N63.0] INVALID FOR* Axillary mass [R22.30] INVALID FOR* Presacral mass [R19.09] INVALID FOR* Thyroiditis [E06.9] INVALID FOR* Weight loss [R63.4] INVALID FOR* Encounter Status:Closed by SHAYY WALLACE MD on 12/21/18 [facility] PROGRESSon 12-21-2018 Protein mass conc HNO ID: [id number] Author: Shayy Wallace Service: ? Author Type: Physician Type: Progress Notes Filed: 12/21/2018 1:12 PM Note Text: NEUROSURGERY CONSULT NOTE Shayy Wallace MD Date of visit: December 20, 2018 Patient Name: Ms.Joanne Cullen Date of : 1965 Current Age: [age] year old Sex: female MRN/E# [id number] Chief Complaint: Patient presents with: Back Pain: left knee HISTORY OF PRESENT ILLNESS : The patient is a 53 year old, right handed female who is referred by Dr. Kebede for neurosurgical evaluation. Ms. Cullen presents to the office today as a new patient with imaging for evaluation of low back pain. Patient is status post an L45 microdiscectomy [address] Kuhn. States since then she has had numbness in the left lower extremity extending to the lateral aspect of the foot. Recently she underwent arthroscopic repair of a left knee meniscus tear. Since then she has developed worsening radicular symptoms, numbness and weakness in the left lower extremity as well as new symptoms in the right. Tells me she underwent an EMG/NC test which prompted an MRI of the lumbar spine which she brings for review today. We do not have the EMG/NC report for review but will attempt to obtain it. She is here for image review, evaluation and plan of care. Symptoms: low back pain PREVIOUS CONSERVATIVE TREATMENTS: RX NSAIDS for 3 Months or Greater (meloxicam (Mobic)) Physical Therapy: Date(s) 6 months ago Dry needling PREVIOUS SURGERY: SURGERY #1: L4-5 surgery, Dr. Hidalgo 2002 PAIN EVALUATION 12/21/2018 Pain Level: 3 Pain Location: Back-Lower left knee pain. left knee pain. Description: Burning;Tingling;Numb ness;Radiating Duration Amount of Time: 2 Duration Units: Years Frequency: Intermittent Intervention: Medication;Therapeuti c techniques-CPRP;Heat; Cold;Relaxation PAST MEDICAL HISTORY Diagnosis Date - Bleeding ulcer - Bowel disease - Insomnia, unspecified - Irritable bowel syndrome - Other forms of migraine - Rheumatoid arthritis(714.0) - Thyroid disorder PAST SURGICAL HISTORY Procedure Laterality Date - DELIVERY ONLY 2000 , low cervical - COLONOSCOPY W/BX 03/27/13 Normal Colonoscopy - Bx - unremarkable - COLONS W/REM POLYP HT BX 10/28/03 Normal colonoscopy - EGD W/O BRSH SPECIMEN W/BX Gastric Ulcer - EGD W/O BRSH SPECIMEN W/BX 03/27/13 normal EGD Bx - mild gastritis, H pylori negative - EGD W/O OR W/BRUSH/WASH Resolved Ulcers - EGD W/O OR W/BRUSH/WASH EGD - LAP CHOLECYSTECT/CHOLANGI OGRAPHY Normal IOC - PAST SURGICAL HISTORY OF 2001 back l4 and l5 - PAST SURGICAL HISTORY OF 2006 left rotator cuff and left carpal tunnel - PAST SURGICAL HISTORY OF right breast biopsy--benign @ 21 years old - PAST SURGICAL HISTORY OF 06/22 presacral mass removed-benign FAMILY HISTORY Problem Relation Age of Onset - Breast Cancer Mother - Breast Cancer Maternal Grandmother - Hypertension Father - Ischemic Heart Disease Father - Cancer Maternal Grandfather kidney ALLERGIES Allergen Reactions - Percocet [Oxycodone* Hives, Itching - Vicodin [Hydrocodon* Itching Current Outpatient Medications: escitalopram (ESCITALOPRAM) 5 mg tablet Take 2 tablets by mouth once daily. Disp: Rfl: 0 pantoprazole (PROTONIX) 40 mg tablet Take 1 tablet by mouth once daily. Disp: Rfl: 0 FA/MV,CA,IRON,MIN/LYC OPENE/LUT (MULTIVITAL ORAL) Take by mouth once daily. Disp: Rfl: ibuprofen 800 mg tablet Take 1 tablet by mouth every 6 hours as needed for Pain. Disp: 40 tablet Rfl: 0 sumatriptan (IMITREX) 6 mg/0.5 mL Soln Inject 6 mg subcutaneously as needed. for migraine Disp: Rfl: LORazepam (ATIVAN) 0.5 mg Tab Take 1 tablet by mouth three times daily as needed. Disp: Rfl: 0 ondansetron (ZOFRAN) 4 mg tablet Take 1 tablet by mouth every 8 hours as needed. Disp: Rfl: 0 temazepam 15 mg cap Take by mouth at bedtime as needed. Disp: Rfl: 0 polyethylene glycol 3350 (MIRALAX) 17 gram/dose powder As directed (Patient not taking: Reported on 12/21/2018 ) Disp: 3 Bottle Rfl: 2 acetaminophen (TYLENOL) 325 mg tablet Take 650 mg by mouth every 6 hours as needed. Disp: Rfl: ascorbic acid (VITAMIN C) 500 mg tablet Take 500 mg by mouth once daily. Disp: Rfl: No current facility-administered medications for this visit. REVIEW OF SYSTEMS Review of Systems Constitutional: Negative for chills, diaphoresis (Negative for night sweats.) and fever. HENT: Negative for ear discharge and rhinorrhea. Eyes: Negative for discharge. Respiratory: Negative for cough, shortness of breath and wheezing. Cardiovascular: Negative for chest pain, palpitations and leg swelling. Gastrointestinal: Negative for constipation, diarrhea, nausea and vomiting. Endocrine: Negative for cold intolerance and heat intolerance. Genitourinary: Negative for frequency. Negative for urinary incontinence and urinary retention. Musculoskeletal: Positive for back pain. Negative for joint swelling, myalgias and neck pain. Skin: Negative for rash (Negative for hives and skin lesions.). Allergic/Immunologic: Negative for environmental allergies and food allergies. Negative for contact allergy, seasonal allergies. Neurological: Positive for numbness (Negative for numbness in extremities.). Negative for dizziness, seizures, syncope, weakness, light-headedness and headaches. Hematological: Does not bruise/bleed easily. Psychiatric/Behaviora l: The patient is not nervous/anxious. Negative for depression. OBJECTIVE: BP 124/70 Pulse 62 Resp 16 Ht 5' 6 (1.68m) Wt 202 lb (91.6kg) SpO2 95% BMI 32.62 kg/(m2). Mental State : Awake oriented to time place and person. Speech normal, no receptive or expressive speech deficit. Recent and remote memory normal Cranial Nerves : II: No visual field cut no blurring III, IV, normal, no double vision or drooping VII No paresis on either side. VIII No gross hearing deficit IX,X,XI No deficit XIITongue midline Sensory : Positive numbness to the left lower extremity, lateral aspect and lateral left foot. Normal Sensation in upper and lower extremities and trunk to touch and noxious stimuli. Motor : Weak/absent plantar flexion in the left foot. Normal muscle tone. No weakness in the upper or lower extremities proximally and distally. 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 No spasticity or tremor Reflexes : Absent ankle reflex, left foot. DTRs symmetrical. No pathological reflexes. Coordination : Normal finger to nose and rapid alternating movements. Gait and Station: Normal Data Review IMAGING STUDIES: MRI of the lumbar spine demonstrates evidence of prior microdiscectomy. There is left-sided significant foraminal narrowing related to a disc displacement eccentric toward the left foramen. She has widespread degenerative disc disease as well. Personal review of medical records: I reviewed with the patient, history, physical exam, the images and the chart. 1. Intervertebral disc disorder with radiculopathy of lumbar region This is a 53-year-old female who presents for evaluation of symptoms of left plantar flexion weakness which developed following knee surgery. Her MRI demonstrates L4-5 foraminal stenosis secondary to disc displacement does not fully explain her symptoms as there is a lack of clinical correlation between her imaging findings and her physical examination. She is undergone a EMG nerve conduction study. She did not bring the report of the study with her. I told her she should come back to see me once her plain radiographs are complete and bring a copy of her EMG and nerve conduction study with her. All of her questions been addressed in detail. - XR LUMBAR MOTION 4V AP/LAT/ FLEX/EXT; Future Shayy Wallace MD Normal [facility] Office Visiton 07-20-2017 Alcoholism counseling (procedure) no Invalid Interpretation Code [facility] Work Phone: Documentation of current medications (procedure) Done Invalid Interpretation Code [facility] Work Phone: Smoking cessation education (procedure) yes Invalid Interpretation Code [facility] Work Phone: Tobacco use CPHS Current every day smoker Invalid Interpretation Code [facility] Work Phone: Office Visiton 07-14-2017 Alcoholism counseling (procedure) no Invalid Interpretation Code [facility] Work Phone: Documentation of current medications (procedure) Done Invalid Interpretation Code [facility] Work Phone: Smoking cessation education (procedure) yes Invalid Interpretation Code [facility] Work Phone: Tobacco use CPHS Current every day smoker Invalid Interpretation Code [facility] Work Phone: Office Visiton 07-04-2017 Protein mass conc Done Invalid Interpretation Code [facility] Work Phone: Protein mass conc no Invalid Interpretation Code [facility] Work Phone: Protein mass conc yes Invalid Interpretation Code [facility] Work Phone: Tobacco smoking status NHIS Current every day smoker Invalid Interpretation Code [facility] Work Phone: Office Visiton 06-29-2017 Alcoholism counseling (procedure) no Invalid Interpretation Code [facility] Work Phone: Documentation of current medications (procedure) Done Invalid Interpretation Code [facility] Work Phone: Smoking cessation education (procedure) yes Invalid Interpretation Code [facility] Work Phone: Tobacco use CPHS Current every day smoker Invalid Interpretation Code [facility] Work Phone: Office Visiton 06-09-2017 Alcoholism counseling (procedure) no Invalid Interpretation Code [facility] Work Phone: Documentation of current medications (procedure) Done Invalid Interpretation Code [facility] Work Phone: Smoking cessation education (procedure) yes Invalid Interpretation Code [facility] Work Phone: Tobacco use CPHS Current every day smoker Invalid Interpretation Code [facility] Work Phone: Office Visiton 04-27-2017 Alcoholism counseling (procedure) no Invalid Interpretation Code [facility] Work Phone: Documentation of current medications (procedure) Done Invalid Interpretation Code [facility] Work Phone: Protein [facility] conc [facility] Work [facility]: Protein mass conc Done [facility] Work Phone: Protein mass conc yes [facility] Work Phone: Smoking cessation education (procedure) yes Invalid Interpretation Code [facility] Work Phone: Tobacco smoking status NHIS Current every day smoker [facility] Work Phone: Tobacco use CPHS Current every day smoker Invalid Interpretation Code [facility] Work Phone: Office Visiton 04-13-2017 Alcoholism counseling (procedure) no Invalid Interpretation Code [facility] Work Phone: Documentation of current medications (procedure) Done Invalid Interpretation Code [facility] Work Phone: Protein mass conc [facility] Work Phone: Protein mass conc Done [facility] Work Phone: Protein mass conc yes [facility] Work Phone: Smoking cessation education (procedure) yes Invalid Interpretation Code [facility] Work Phone: Tobacco smoking status NHIS Current every day smoker [facility] Work Phone: Tobacco use CPHS Current every day smoker Invalid Interpretation Code [facility] Work Phone: Office Visiton 03-10-2017 Protein mass conc [facility] Work Phone: Protein mass conc Done [facility] Work Phone: Protein mass conc yes [facility] Work Phone: Tobacco smoking status NHIS Current every day smoker [facility] Work Phone: Office Visiton 02-17-2017 Alcoholism counseling (procedure) no Invalid Interpretation Code [facility] Work Phone: Documentation of current medications (procedure) Done Invalid Interpretation Code [facility] Work Phone: Protein mass conc no [facility] Work Phone: Protein mass conc Done [facility] Work Phone: Protein mass conc yes [facility] Work Phone: Smoking cessation education (procedure) yes Invalid Interpretation Code [facility] Work Phone: Tobacco smoking status NHIS Current every day smoker [facility] Work Phone: Tobacco use CPHS Current every day smoker Invalid Interpretation Code [facility] Work Phone: Microbiology: Culture, Body Fluidon 01-31-2017 body fluid culture . Invalid Interpretation Code [facility] Work Phone: CUBF . Invalid Interpretation Code [facility] Work Phone: Microbiology: (P) Culture, B laura Fluidon 01-29-2017 body fluid culture . Invalid Interpretation Code [facility] Work Phone: Microbiology: (P) Culture, B laura Fluidon 01-25-2017 body fluid culture . Invalid Interpretation Code [facility] Work Phone: Microbiology: (P) Culture, B laura Fluidon 01-24-2017 body fluid culture . Invalid Interpretation Code [facility] Work Phone: Lab Report: GLUCOSE, SYNOVIA L FLUIDon 01-20-2017 GE use only - for LinkLogic import when terms are not otherwise specified 97 mg/dL Invalid Interpretation Code . [facility] Work Phone: GLU, SYN FLD 97 mg/dL Invalid Interpretation Code . [facility] Work Phone: Microbiology: (P) Culture, B laura Fluidon 01-20-2017 body fluid culture . Invalid Interpretation Code [facility] Work Phone: body fluid culture Cult, AnaerobicNo growth in 48 hours. Invalid Interpretation Code [facility] Work Phone: Microbiology: (P) Culture, B laura Fluidon 2017 body fluid culture . Invalid Interpretation Code [facility] Work Phone: Replaced Document: (P) Cultu re, Body Fluidon 01-18-2017 body fluid culture . Invalid Interpretation Code [facility] Work Phone: Lab Report: (P) Synovial Flu id RBC, WBC AND Diffon 01-17-2017 Cell Count, Synovial Fluid 0.3630 10 3 uL High 0.000-0.000 [facility] Work Phone: mononuclear cells, synovial fluid as percent of leukocytes 70.5 % Invalid Interpretation Code [facility] Work Phone: neutrophils, polymorphonuclear as percent of synovial fluid leukocytes 29.5 % Invalid Interpretation Code [facility] Work Phone: SYBF MN WBC% 70.5 % Invalid Interpretation Code [facility] Work Phone: SYBF PMN WBC% 29.5 % Invalid Interpretation Code [facility] Work Phone: SYN Tot Cell Ct 0.3630 10 3 uL High 0.000-0.000 [facility] Work Phone: SYNOVIAL WBC 0.3490 10 3UL High 0.000-0.002 [facility] Work Phone: WBC, Fluid 0.3490 10 3UL High 0.000-0.002 [facility] Work Phone: Lab Report: Crystals, Body F luidon 01-17-2017 PATH REV Will follow Invalid Interpretation Code [facility] Work Phone: Pathology comment Will follow Invalid Interpretation Code [facility] Work Phone: Lab Report: Synovial Fluid R BC, WBC AND Diffon 01-17-2017 Erythrocytes (RBC) 0.0001 10*6/uL High 0 [facility] Work Phone: SYNOVIAL RBC 99 /uL High 0 [facility] Work Phone: Office Visiton 01-17-2017 Alcoholism counseling (procedure) no Invalid Interpretation Code [facility] Work Phone: Documentation of current medications (procedure) Done Invalid Interpretation Code [facility] Work Phone: Smoking cessation education (procedure) yes Invalid Interpretation Code [facility] Work Phone: Tobacco use CPHS Current every day smoker Invalid Interpretation Code [facility] Work Phone: Replaced Document: Crystals, Body Fluidon 01-17-2017 crystals, body fluid SYNOVIAL Invalid Interpretation Code [facility] Work Phone: CRYSTALS/BF SYNOVIAL Invalid Interpretation Code [facility] Work Phone: Replaced Document: Synovial Fluid RBC, WBC AND Diffon 01-17-2017 Lymphocytes/100 leukocytes 5 % Invalid Interpretation Code [facility] Work Phone: Lymphocytes/100 WBC (Bld) 5 % [facility] Work Phone: Monocytes 21 % Invalid Interpretation Code [facility] Work Phone: Monocytes #/vol (Bld) 21 % [facility] Work Phone: NEUTROPHIL 5 % Invalid Interpretation Code 0-25 [facility] Work Phone: neutrophils as percent of body fluid leukocytes 5 % Invalid Interpretation Code 0-25 [facility] Work Phone: OTHER CELL /SYN 69 % Invalid Interpretation Code [facility] Work Phone: other Cells 69 % Invalid Interpretation Code [facility] Work Phone: appearance, body fluid Sl Cl Invalid Interpretation Code CLEAR [facility] Work Phone: Body Fluid Total Volume 12.0 mL High 0.1-3.5 [facility] Work Phone: body fluids, viscosity Sl. Viscous Invalid Interpretation Code HIGH [facility] Work Phone: color, synovial fluid Yellow Invalid Interpretation Code Pale Yellow [facility] Work Phone: GE use only - for LinkLogic import when terms are not otherwise specified May follow Invalid Interpretation Code [facility] Work Phone: source of sample KNEE Invalid Interpretation Code [facility] Work Phone: SYNOVIAL COLOR Yellow Invalid Interpretation Code Pale Yellow [facility] Work Phone: SYNOVIAL SOURCE KNEE Invalid Interpretation Code [facility] Work Phone: SYNOVIAL TV 12.0 mL High 0.1-3.5 [facility] Work Phone: VISCOSITY/SYFL Sl. Viscous Invalid Interpretation Code HIGH [facility] Work Phone: Lab Report: CBC, Employeeon 04-15-2016 Absolute Neut 2.1 X10 3/UL Invalid Interpretation Code 2.0-7.7 [facility] Work Phone: Basophils/100 leukocytes 0.5 % Invalid Interpretation Code 0-1 [facility] Work Phone: Basophils/100 WBC (Bld) 0.5 % 0-1 [facility] Work Phone: Eosinophils/100 leukocytes 3.2 % Invalid Interpretation Code 0-5 [facility] Work Phone: Eosinophils/100 WBC (Bld) 3.2 % 0-5 [facility] Work Phone: Erythrocyte distribution width Auto Ratio (RBC) 45.5 fL High 35.1-43.9 [facility] Work Phone: Erythrocyte distribution width Ratio (RBC) 45.5 fL High 35.1-43.9 [facility] Work Phone: Erythrocyte distribution width Ratio (RBC) 12.9 % 11.6-14.6 [facility] Work Phone: Erythrocytes (RBC) 3.91 10*6/uL Low 4.2-5.4 [facility] Work Phone: Hematocrit (HCT) 38.8 % Invalid Interpretation Code 37-47 [facility] Work Phone: Hematocrit Volume Fraction (Bld) 38.8 % 3747 [facility] Work Phone: Hemoglobin (HGB) 12.7 g/dL Invalid Interpretation Code 12.0-15.0 [facility] Work Phone: Lymphocytes 1.75 X10 3/UL Invalid Interpretation Code 0.83-4.51 [facility] Work Phone: Lymphocytes #/vol (Bld) 1.75 X10 3/UL 0.83-4.51 [facility] Work Phone: Lymphocytes/100 leukocytes 39.6 % Invalid Interpretation Code 1941 [facility] Work Phone: Lymphocytes/100 WBC (Bld) 39.6 % 19 [facility] Work Phone: MCH 32.5 pg High 27.0-32.0 [facility] Work Phone: MCH Entitic mass (RBC) 32.5 pg High 27.0-32.0 [facility] Work Phone: MCHC 32.7 G/GL Invalid Interpretation Code 3236 [facility] Work Phone: MCHC mass conc (RBC) 32.7 G/GL 32-36 [facility] Work Phone: MCV 99.2 fL High 81-99 [facility] Work Phone: MCV Entitic volume (RBC) 99.2 fL High 81-99 [facility] Work Phone: Monocytes/100 leukocytes 9.3 % Invalid Interpretation Code 0-10 [facility] Medicine and Orthopaedics Work Phone: Monocytes/100 WBC (Bld) 9.3 % 0-10 [facility] Work Phone: neutrophil count, blood 2.1 X10 3/UL Invalid Interpretation Code 2.0-7.7 [facility] Work Phone: Neutrophils #/vol (Bld) 2.1 X10 3/UL 2.0-7.7 [facility] Work Phone: Neutrophils Auto #/vol (Bld) 2.1 X10 3/UL Invalid Interpretation Code 2.0-7.7 [facility] Work Phone: Neutrophils/100 leukocytes 47.4 % Invalid Interpretation Code 47-70 [facility] Work Phone: Neutrophils/100 WBC (Bld) 47.4 % 47-70 [facility] Work Phone: Platelet mean volume Entitic volume (Bld) 9.3 fL 6.2-12.0 [facility] Work Phone: Platelets 224 10*3/mm3 Invalid Interpretation Code 150-450 [facility] Work Phone: Platelets #/vol (Bld) 224 10*3/mm3 150-450 [facility] Work Phone: PMV by Michelle 9.3 fL Invalid Interpretation Code 6.2-12.0 [facility] Work Phone: RBC #/vol (Bld) 3.91 10*6/uL Low 4.2-5.4 [facility] Work Phone: RDW SD 45.5 fL High 35.1-43.9 [facility] Work Phone: RDW-CA 12.9 % Invalid Interpretation Code 11.6-14.6 [facility] Work Phone: red blood cell distribution width, size density 45.5 fL High 35.1-43.9 [facility] Work Phone: WBC #/vol (Bld) 4.4 10*3/uL 4.4-11.0 [facility] Work Phone: WBC (Leukocytes) 4.4 10*3/uL Invalid Interpretation Code 4.4-11.0 [facility] Work Phone: Lab Report: Employee Profile on 04-15-2016 Alanine aminotransferase (ALT) 42 U/L Invalid Interpretation Code 12-78 [facility] Work Phone: Albumin 3.2 g/dL Low 3.4-5.0 [facility] Work Phone: Albumin/Globulin Ratio 1 {ratio} Invalid Interpretation Code 0.9-2.4 [facility] Work Phone: Alkaline phosphatase (ALP) 72 U/L Invalid Interpretation Code 50-136 [facility] Work Phone: ALP enzyme act/vol (Bld) 72 U/L Invalid Interpretation Code 50-136 [facility] Work Phone: Anion gap 5 mmol/L Invalid Interpretation Code 5-15 [facility] Work Phone: Anion gap 4 molar conc 5 Invalid Interpretation Code 5-15 [facility] Work Phone: Anion gap molar conc 5 mmol/L 5-15 [facility] Work Phone: Aspartate aminotransferase (AST) 21 U/L Invalid Interpretation Code 15-37 [facility] Work Phone: Bilirubin (direct) 0.07 mg/dL Invalid Interpretation Code 0.00-0.30 [facility] Work Phone: Bilirubin (total) 0.20 mg/dL Invalid Interpretation Code 0.20-1.00 [facility] Work Phone: BUN/Creatinine Ratio 28.9 RATIO High 10-20 [facility] Work Phone: Calcium 8.2 mg/dL Low 8.5-10.1 [facility] Work Phone: Chloride 109 mmol/L High 98-107 [facility] Work Phone: Cholesterol 164 mg/dL Invalid Interpretation Code 200 [facility] Work Phone: CO2 30.0 mmol/L Invalid Interpretation Code 21.0-32.0 [facility] Work Phone: CO2 ppres (BldV) 30.0 mmol/L Invalid Interpretation Code 21.0-32.0 [facility] Work Phone: Creatinine 0.62 mg/dL Invalid Interpretation Code 0.55-1.20 [facility] Work Phone: eGFR (non-black) 130 mL/min/{1.73_m2} Invalid Interpretation Code >60 [facility] Work Phone: eGFR (non-black) 107 mL/min/{1.73_m2} Invalid Interpretation Code >60 [facility] Work Phone: EST GFR - AA 130 mL/min Invalid Interpretation Code >60 [facility] Work Phone: Globulin 3.1 g/dL Invalid Interpretation Code 2.3-3.5 [facility] Work Phone: Globulin mass conc (S) 3.1 g/dL 2.3-3.5 [facility] Work Phone: Glucose 87 mg/dL Invalid Interpretation Code 70-110 [facility] Work Phone: Glucose mass conc 87 mg/dL Invalid Interpretation Code 70-110 [facility] Work Phone: HDL Cholesterol 66 mg/dL Invalid Interpretation Code [facility] Work Phone: lactate dehydrogenase - serum 195 U/L Invalid Interpretation Code 84-246 [facility] Work Phone: LDH 195 U/L Invalid Interpretation Code 84-246 [facility] Work Phone: LDL Cholesterol 87 mg/dL Invalid Interpretation Code 0-130 [facility] Work Phone: PHOS 3.4 mg/dL Invalid Interpretation Code 2.5-4.9 [facility] Work Phone: Phosphorus Concentratation-Random 3.4 mg/dL Invalid Interpretation Code 2.5-4.9 [facility] Work Phone: Potassium 4.4 mmol/L Invalid Interpretation Code 3.5-5.1 [facility] Work Phone: Protein 6.3 g/dL Low 6.4-8.2 [facility] Work Phone: Sodium 144 mmol/L Invalid Interpretation Code 136-145 [facility] Work Phone: Triglyceride 53 mg/dL Invalid Interpretation Code [facility] Work Phone: Urate 3.9 mg/dL Invalid Interpretation Code 2.6-6.0 [facility] Work Phone: Urea nitrogen 18 mg/dL Invalid Interpretation Code 7-18 [facility] Work Phone: very low density lipoproteins 11 mg/dL Invalid Interpretation Code 5-40 [facility] Work Phone: Lab Report: Nicotine Urine D rug Screenon 04-15-2016 GE use only - for [employer] import when terms are not otherwise specified Positive High <200 ng/mL [facility] Work Phone: Lab Report: UrinalysisLoco 04-15-2016 Albumin Ql (U) Negative Invalid Interpretation Code Negative [facility] Work Phone: Bilirubin Ql (U) Negative Invalid Interpretation Code Negative [facility] Work Phone: Ketones mass conc (U) Negative Invalid Interpretation Code Negative [facility] Work Phone: NITRITE UR Negative Invalid Interpretation Code Negative [facility] Work Phone: Nitrite Urine Negative Invalid Interpretation Code Negative [facility] Work Phone: Occult Blood, urine Negative Invalid Interpretation Code Negative [facility] Work Phone: OCCULT BLOOD-UR Negative Invalid Interpretation Code Negative [facility] Work Phone: pH (U) 7.0 [pH] 5.0 - 8.0 [facility] Work Phone: specific gravity, urine 1.010 Invalid Interpretation Code 1.002-1.030 [facility] Work Phone: Urine, bilirubin presence Negative Invalid Interpretation Code Negative [facility] Work Phone: Urine, clarity Clear Invalid Interpretation Code Clear [facility] Work Phone: Urine, color Yellow Invalid Interpretation Code Yellow [facility] Work Phone: Urine, glucose presence Normal mg/dl Invalid Interpretation Code Normal [facility] Work Phone: Urine, ketones presence Negative Invalid Interpretation Code Negative [facility] Work Phone: Urine, leukocyte esterase presence Negative Invalid Interpretation Code Negative [facility] Work Phone: Urine, pH 7.0 [pH] Invalid Interpretation Code 5.0 - 8.0 [facility] Work Phone: Urine, protein Negative Invalid Interpretation Code Negative [facility] Work Phone: UROBILI Normal mg/dl Invalid Interpretation Code Normal [facility] Work Phone: urobilinogen, urine, by dipstick Normal mg/dl Invalid Interpretation Code Normal [facility] Work Phone: Clinical 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 Breast Mammogram screening Normal Invalid Interpretation Code [facility] Work Phone: bone density, dual energy x-ray absorptiometry Normal bone Invalid Interpretation Code [facility] Work Phone: Vital Signs Date Time Vital Sign Value Performing Clinician Facility 12-17-2023 20:58-0400 Body temperature 97 [degF] [facility] 12-17-2023 20:58-0400 Diastolic blood pressure 58 mm[Hg] [facility] 12-17-2023 20:58-0400 Heart rate 61 /min [facility] 12-17-2023 20:58-0400 Respiratory rate 16 /min [facility] 12-17-2023 20:58-0400 SaO2% (BldA) [Mass fraction] 94 % [facility] 12-17-2023 20:58-0400 Systolic blood pressure 146 mm[Hg] [facility] 12-17-2023 12:56-0400 Body height 167.64 cm [facility] 12-17-2023 12:56-0400 Body mass index (BMI) [Ratio] 32.4 kg/m2 [facility] 12-17-2023 12:56-0400 Body weight 91.17 kg [facility] 12-16-2023 12:00-0400 Body temperature 97.8 [degF] [facility] 12-16-2023 12:00-0400 Diastolic blood pressure 62 mm[Hg] [facility] 12-16-2023 12:00-0400 Heart rate 55 /min [facility] 12-16-2023 12:00-0400 Respiratory rate 16 /min [facility] 12-16-2023 12:00-0400 SaO2% (BldA) [Mass fraction] 97 % [facility] 12-16-2023 12:00-0400 Systolic blood pressure 154 mm[Hg] [facility] 12-16-2023 11:06-0400 Body mass index (BMI) [Ratio] 34.2 kg/m2 [facility] 12-16-2023 11:06-0400 Body weight 96.1 kg [facility] 12-16-2023 10:28-0400 Body height 167.64 cm [facility] 12-14-2023 12:49-0400 Body height 167.64 cm [facility] 12-14-2023 12:49-0400 Body temperature 98.2 [degF] [facility] 12-14-2023 12:49-0400 Diastolic blood pressure 63 mm[Hg] [facility] 12-14-2023 12:49-0400 Heart rate 69 /min [facility] 12-14-2023 12:49-0400 Respiratory rate 16 /min [facility] 12-14-2023 12:49-0400 SaO2% (BldA) [Mass fraction] 94 % [facility] 12-14-2023 12:49-0400 Systolic blood pressure 122 mm[Hg] [facility] 06-21-2023 19:29-0400 Diastolic blood pressure 70 mm[Hg] [facility] 06-21-2023 19:29-0400 Heart rate 64 /min [facility] 06-21-2023 19:29-0400 Respiratory rate 18 /min [facility] 06-21-2023 19:29-0400 SaO2% (BldA) [Mass fraction] 98 % [facility] 06-21-2023 19:29-0400 Systolic blood pressure 129 mm[Hg] [facility] 06-21-2023 16:10-0400 Body height 167.64 cm [facility] 06-21-2023 16:10-0400 Body mass index (BMI) [Ratio] 31.8 kg/m2 [facility] 06-21-2023 16:10-0400 Body temperature 97.3 [degF] [facility] 06-21-2023 16:10-0400 Body weight 89.4 kg [facility] 01-13-2016 07:51-0400 BMI (Body Mass Index) 25.82 kg/m2 [facility] Work Phone: 01-13-2016 07:51-0400 Body Temperature 98.1 [degF] [facility] Work Phone: 01-13-2016 07:51-0400 BP Diastolic 72 mm[Hg] [facility] Work Phone: 01-13-2016 07:51-0400 BP Systolic 128 mm[Hg] [facility] Work Phone: 01-13-2016 07:51-0400 BSA (Body Surface Area) 1.82 m2 [facility] Work Phone: 01-13-2016 07:51-0400 Pulse (Heart Rate) 65 /min [facility] Work Phone: 01-13-2016 07:51-0400 Pulse Oximetry 98 % [facility] Work Phone: 01-13-2016 07:51-0400 Respiratory Rate 16 /min [facility] Work Phone: 01-13-2016 07:51-0400 Weight 72.58 kg [facility] Work Phone: 05-01-2014 14:35-0400 Height 167.64 cm Marysol Chicorelli [facility] Work Phone: Encounters Encounter Date Encounter Type Care Provider Facility Start: 02-11-2025 Encounter for genera l adult medical examination without abnormal findings [facility] Start: 02-10-2025 Encounter for other preprocedural examination [facility] Start: 02-07-2025 End: 02-07-2025 ambulatory [facility] Facility:[facility] Start: 01-18-2025 End: 01-18-[address] Ginna Kowalski MD Work Phone: [facility] Work Phone: Start: 01-18-2025 End: 01-18-[address] Ginna Kowalski MD -Laboratory,[facility] Work Phone: Start: 01-18-2025 End: 01-18-2025 ambulatory [facility] Start: 12-23-2024 Non-patient / Non-visit Dr. Nicole VAZQUEZ -[facility] Start: 12-23-2024 End: 12-23-[address] Ginna Kowalski MD Work Phone: [facility] Work Phone: Start: 12-23-2024 End: 12-23-[address] Ginna Kowalski MD -Cardiovascular Services Work Phone: Start: 12-23-2024 End: 12-23-2024 [facility] Start: 12-19-2024 End: 12-19-[address] Ginna Kowalski MD Work Phone: [facility] Work Phone: Start: 12-19-2024 End: 12-19-[address] Markel Leyva DPM -[facility] Work Phone: Start: 12-19-2024 End: 12-19-2024 ambulatory [facility] Facility:[facility] Start: 07-22-2024 End: 07-22-2024 ambulatory [facility] Facility:[facility] Start: 07-01-2024 ambulatory [facility] Facility:[facility] Start: 12-17-2023 End: 12-17-2023 Emergency department patient visit [facility] Work Phone: Start: 12-16-2023 End: 12-16-2023 Emergency department patient visit [facility] Work Phone: Start: 12-14-2023 End: 12-14-2023 Emergency department patient visit [facility] Work Phone: Start: 06-21-2023 End: 06-21-2023 Emergency department patient visit [facility] Work Phone: Start: 04-26-2022 End: 04-26-[address] Leidy Crawford Work Phone: [facility]Radiology, [facility] Start: 04-21-2022 End: 04-21-[address] Leidy Crawford Work Phone: [facility] Start: 12-21-2018 End: 12-21-2018 Patient encounter procedure SHAYY WALLACE Facility:[facility] Procedures Date Procedure Procedure Detail Performing Clinician Start: 12-19-2024 MRI of joint of lowe r extremity Dr. Ginna Kowalski MD Work Phone: Start: 04-26-2022 Plain chest X-ray Dr. Chaya Crawford Work Phone: Start: 01-16-2017 End: 2017 Radiologic exam knee complete 4/more views Marysol Juarez Work Phone: Start: 01-16-2017 End: 2017 X-ray exam, knee, 4 or more Marysol Juarez Work Phone: Start: 04-15-2016 End: 04-15-2016 Urinalysis Carina Song Plan of Treatment Date Care Activity Detail Author Start: 02-21-2025 ambulatory Ambulatory Facility:[facility] Start: 01-18-2025 Procedure [facility] Start: 01-18-2025 Nicotine measurement [facility] Start: 12-17-2023 [facility] Start: 12-16-2023 [facility] Start: 12-14-2023 [facility] Start: 06-21-2023 [facility] Start: 07-20-2017 End: 07-20-2017 Appointment Appointment [facility] Work Phone: Start: 07-14-2017 End: 07-14-2017 Appointment Appointment [facility] Work Phone: Start: 07-04-2017 End: 07-04-2017 Appointment Appointment [facility] Work Phone: Start: 06-29-2017 End: 06-29-2017 Appointment Appointment [facility] Work Phone: Start: 06-09-2017 End: 06-09-2017 Radiologic exam knee complete 4/more views X-Ray, Knee [facility] Work Phone: Start: 06-01-2017 End: 06-01-2017 Appointment Appointment [facility] Work Phone: Start: 04-27-2017 End: 04-27-2017 Appointment Appointment [facility] Work Phone: Start: 04-13-2017 End: 04-13-2017 Appointment Appointment [facility] Work Phone: Start: 03-29-2017 End: 03-29-2017 Appointment Appointment [facility] Work Phone: Start: 03-10-2017 End: 03-10-2017 Appointment Appointment [facility] Work Phone: Start: 02-17-2017 End: 02-17-2017 Appointment Appointment [facility] Work Phone: Start: 01-23-2017 End: 01-23-2017 Mri any jt lower extrem w/o contrast matrl MRI Joint Lower Extremity [facility] Work Phone: Start: 01-23-2017 End: 01-23-2017 Mri jnt of lwr extre w/o dye MRI Joint Lower Extremity [facility] Work Phone: Start: 01-17-2017 End: 01-17-2017 *BFRW - Body Fluid RBC, WBC & DIFF *BFRW - Body Fluid RBC, WBC & DIFF [facility] Work Phone: Start: 01-17-2017 End: 01-17-2017 Bacteria identified in Body fluid by Culture *CUBF- Culture, Body Fluid [facility] Work Phone: Start: 01-17-2017 End: 01-17-2017 Crystals [type] in Body fluid by Light microscopy *PAO - Crystals, Body Fluid [facility] Work Phone: Start: 01-17-2017 End: 01-17-2017 Glucose [Mass/volume] in Body fluid *GLUBF - Glucose, Body Fluid [facility] Work Phone: Start: 01-17-2017 End: 01-17-2017 Protein in fluid *PROBF - Protein, Body Fluid [facility] Work Phone: Start: 01-17-2017 End: 01-17-2017 Appointment Appointment [facility] Work Phone: Start: 01-17-2017 End: 01-17-2017 *BFRW - Body Fluid RBC, WBC & DIFF *BFRW - Body Fluid RBC, WBC & DIFF [facility] Work Phone: Start: 01-17-2017 End: 01-17-2017 Bacteria identified in Body fluid by Culture *CUBF- Culture, Body Fluid [facility] Work Phone: Start: 01-17-2017 End: 01-17-2017 Crystals [type] in Body fluid by Light microscopy *PAO - Crystals, Body Fluid [facility] Work Phone: Start: 01-17-2017 End: 01-17-2017 Glucose *GLUBF - Glucose, Body Fluid [facility] Work Phone: Start: 01-17-2017 End: 01-17-2017 Glucose mass conc (Body fld) *GLUBF - Glucose, Body Fluid [facility] Work Phone: Start: 01-17-2017 End: 01-17-2017 Protein in fluid *PROBF - Protein, Body Fluid [facility] Work Phone: Start: 01-16-2017 End: 2017 Radiologic exam knee complete 4/more views X-Ray, Knee [facility] Work Phone: Start: 01-16-2017 End: 2017 X-ray exam, knee, 4 or more X-Ray, Knee [facility] Work Phone: Cotinine measurement [facility] Nicotine [Mass/volum e] in Serum or Plasma [facility] Patient Education [facility] Work Phone: Patient referral [facility] Work Phone: Immunizations Immunization Date Immunization Notes Care Provider Roseline [facility] 07-11-2024 influenza, seasonal, injectable, preservative free Dr. Ginna Kowalski MD Work Phone: [facility] 07-27-2023 influenza, injectabl e, quadrivalent, preservative free [facility] 06-29-2022 influenza, injectabl e, quadrivalent, preservative free [facility] 10-12-2020 Covid (Moderna) Dr. Leidy bland Work Phone: [facility] 09-14-2020 Covid (Moderna) Dr. Leidy bland Work Phone: [facility] 06-29-2020 influenza, injectabl e, quadrivalent, preservative free [facility] 06-29-2020 influenza, seasonal, injectable Dr. Leidy Crawford Work Phone: [facility] Work Phone: 06-20-2019 influenza, injectabl e, quadrivalent, preservative free [facility] 06-20-2019 influenza, seasonal, injectable Dr. Leidy Crawford Work Phone: [facility] Work Phone: 06-08-[address] Leidy Crawford Work Phone: [facility] 06-08-2018 influenza, injectabl e, quadrivalent, preservative free [facility] 06-08-2018 influenza, seasonal, injectable Dr. Leidy Crawford Work Phone: [facility] Work Phone: 06-07-2017 influenza, injectabl e, quadrivalent, preservative free [facility] 06-07-2017 influenza, seasonal, injectable Dr. Leidy Crawford Work Phone: [facility] Work Phone: 06-09-2016 influenza, injectabl e, quadrivalent, preservative free [facility] 06-09-2016 influenza, seasonal, injectable Dr. Leidy Crawford Work Phone: [facility] Work Phone: 06-15-2015 influenza, injectabl e, quadrivalent, preservative free [facility] 06-15-2015 influenza, seasonal, injectable Dr. Leidy Crawford Work Phone: [facility] Work Phone: 06-11-2014 influenza, injectabl e, quadrivalent, preservative free [facility] 06-11-2014 influenza, seasonal, injectable Dr. Leidy Crawford Work Phone: [facility] Work Phone: 10-03-2013 tetanus toxoid, redu artemio diphtheria toxoid, and acellular pertussis vaccine, adsorbed Dr. Leidy Crawford Work Phone: [facility] Payers Date Payer Category Payer Unknown [id number] 2024 Self-pay [id number] 2016 Unknown [id number] 1965 Unknown [id number] Self-pay S[employer] PA[employer] INSURANCE [id number] Unknown [id number] [id number] [id number] Unknown [id number] [id number] [id number] Unknown [id number] [id number] [id number] Unknown [id number] 2.16.8 [id number] Unknown [id number] 2.16.8 [id number] Unknown [id number] 2.16.8 [id number] Unknown [id number] 2.16.8 [id number] Unknown [id number] 2.16.8 [id number] Social History Date Type Detail Facility Start: 02-29-2020 End: 12-17-2023 Tobacco smoking status RIIS Unknown if ever smoked [facility] Start: 07-19-2021 Occasional [facility] Start: 07-19-2021 None [facility] Start: 07-19-2021 Alone [facility] Start: 07-19-2021 Cigarettes [facility] Start: 1965 Sex Assigned At Female W [facility] Start: 12-17-2023 Tobacco smoking stat us NHIS Smokes tobacco daily (finding) [facility] Start: 12-23-2024 End: 12-26-2024 Sex Female (finding) [facility] Discharge summary 12-17-2023 Note Date & Type Note Facility 12-17-2023 Discharge summary Note Date/Time December 17, 2023 1:39pm [facility] Medical Records Department [address] [place] [address] Emergency Department Summary 12/17/23 MR#: [id number] Acct: [id number] Name: DARWIN CULLEN Rep #:[id number] : 1965 58 From: Per Marrero MD PCP: Dr. Leidy Crawford, Status:REG ER Location: ED HPI History of Present Illness Chief Complaint: Dental Detail of Chief Complaint: Left lower jaw dental pain with infection and swelling. Informant: patient Onset/Context/Timing Onset: Days Context: Gradual Onset Timing: Continuous Current Severity: Moderate Maximum Severity: Moderate Relieved by: NSAIDs Associated Symptoms Assocated Symptom - Dental: jaw swelling; Negative for fever Narrative Narrative: 58-year-old female who has had dental pain for about 4 to 5 days. And started having swelling. She was seen in emergency department within the last couple ofdays. Diagnosed with a dental infection. She knows she has an eroded tooth there but she had a bad experience in the past with a dentist and tries to avoidthe dentist if at all possible. She initially was started on clindamycin which she got worse and was switched to Augmentin and was given a dose of IV Unasyn the other day in the emergency department. She denies any trouble swallowing orbreathing. Prior similar symptoms: Yes Recent Illness/Hospitalization: No PFSH PFSH Medical History Chest pain Family history of ischemic heart disease History of eating disorder History of insomnia Hyperlipidemia Migraine Rheumatoid arthritis Tobacco dependence Home Medications albuterol sulfate 90 mcg/actuation aerosol inhaler 1 - 2 puff Inhalation Q4H PRNPRN Asthma 05/01/14 [History Last Taken 05/09/14 10:00] ibuprofen 200 mg tablet 200 mg PO Q6H PRN PRN Pain 03/22/17 [History Last Taken 06/15/18 10:00] aspirin 81 mg chewable tablet 81 mg PO DAILY@0800 ##30 06/14/18 [Rx Last Taken 06/14/18 19:00] meloxicam 15 mg tablet 13 mg PO DAILY 06/14/18 [History Last Taken 06/15/18 08:00] ondansetron 4 mg disintegrating tablet 4 mg PO Q8H PRN PRN Nausea #10 tabs 06/14/18 [Rx Last Taken Unknown] atorvastatin 20 mg tablet 20 mg PO DAILY #30 tabs 06/15/18 [Rx Last Taken Unknown] hydrochlorothiazide 25 mg tablet 12.5 mg PO PRN PRN swelling 06/15/18 [History Last Taken 06/15/18 08:00] propranolol 80 mg capsule,24 hr,extended release (Inderal LA) 80 mg PO DAILY #30caps 06/15/18 [Rx Last Taken Unknown] digoxin 250 mcg (0.25 mg) tablet 0.25 mg PO DAILY #30 tabs 07/19/18 [Rx Last Taken Unknown] potassium chloride 10 mEq tablet,extended release 10 meq PO DAILY #30 tabs 07/19/18 [Rx Last Taken Unknown] promethazine 25 mg tablet 25 mg PO Q6H PRN nausea and vomiting #20 tabs 06/21/23[Rx Last Taken Unknown] sumatriptan succinate 6 mg/0.5 mL subcutaneous pen injector 6 mg (0.5 mL) subcutX1 PRN migraine headache #1 mL 06/21/23 [Rx Last Taken Unknown] hydrocodone-acetaminophen 5-325mg 5mg-325mg 1 tab PO Q6H PRN PRN Pain 3 days #10TABLETS 12/14/23 [Rx Last Taken Unknown] amoxicillin 875 mg-potassium clavulanate 125 mg tablet 875 mg (0.875 x 875-125 mg) PO Q12H #20 TABLETS 12/16/23 [Rx Last Taken Unknown] Allergy/AdvReac Type Severity Reaction Status Date / Time oxycodone HCl [From Percocet] Allergy Severe Anaphylaxis Verified 12/16/23 10:28 diltiazem AdvReac Intermediate Leg Verified 12/16/23 10:28 swelling gabapentin [From Horizant] AdvReac Intermediate Edema Verified 12/16/23 10:28 Family History Mother Breast cancer Grandmother Breast cancer Other Heart disease Hypertension Isela Gehrigs disease Myocardial infarction Surgical History History of back surgery History of section History of cholecystectomy history of coccyx removal History of foot surgery History of left heart catheterization (~06/15/18) History of lumpectomy of right breast History of rotator cuff surgery history of wrist surgery Hx of left knee surgery 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 Dental pain. Dental swelling.Nausea and vomiting. Review of Systems ROS Unobtainable: Denies due to encephalopathy Constitutional Constitutional ED: Denies chills or fever(s) Eyes Eyes: Denies blurry vision ENT ENT ED: Denies ear pain Cardiovascular Cardiovascular: Denies chest pain or palpitations Respiratory/Chest Respiratory/Chest: Denies cough or dyspnea Gastrointestinal Gastrointestinal: Reports nausea and vomiting; Denies abdominal pain Genitourinary Genitourinary ED: Denies dysuria or hematuria Musculoskeletal Musculoskeletal: Denies arthralgias or back pain Integumentary Denies abscess or Abrasions Neurologic Neurologic: Denies headache(s) or paresthesias Psychiatric Psychiatric: Denies suicidal thoughts Endocrine Endocrinology: Denies cold intolerance Hematologic/Lymphatic Hematologic/Lymphatic: Denies easy bleeding or easy bruising Allergic/Immunologic Allergic/Immunologic ED: Reports mouth swelling; Denies tongue swelling EXAM Physical Exam Narrative Exam Narrative: Well-appearing 58-year-old female. Vital signs stable afebrile. H EENT exam pupils round reactive light. Posterior pharynx unremarkable. Moist mucous membranes. No trouble swallowing or breathing. She has significantly eroded left lower premolar that is tender. She has lost about half the tooth. There is some mild gingival swelling but no ballotable abscess or anything is drainable. She has no trismus. She can open close her mouth and a difficulty. The floor of her tongue is unremarkable. Neck nontender no lymphadenopathy. Lungs clear to auscultation. Heart regular rhythm no murmur. Abdomen soft nontender. Moving all 4 extremities. Nontender no edema. Neurologically she is awake and alert with no focal motor deficits. Const Vital Signs: 12/17/23 12:56 12/17/23 14:18 12/17/23 14:58 Temperature 96.8 F L 97.2 F L Temperature Source Temporal Temporal Pulse Rate 75 59 L Respiratory Rate 18 16 16 Blood Pressure 166/75 H 152/72 H Blood Pressure Mean 105 98 Pulse Ox 94 95 99 Oxygen Delivery Method Room Air Room Air Room Air 12/17/23 15:59 12/17/23 18:59 Temperature 97.3 F L Temperature Source Temporal Pulse Rate 55 L 56 L Respiratory Rate 19 H Blood Pressure 128/67 H 152/82 H Blood Pressure Mean 87 105 Pulse Ox 97 94 Oxygen Delivery Method Room Air Positive well nourished and well developed; Negative for obese, cachectic, contractures or unkempt General Appearance ED: well developed and NAD; Negative for unkempt, cachectic or contractures Nutritional Appearance: Negative for cachectic or obese HEENT HEENT Narrative: Left lower premolar. Decayed. Gingival swelling. No drainable abscess. No trismus. Negative for trauma or tenderness Face and Sinus: Negative for sinuses nontender Mouth ED: Yes lips normal, Yes tongue normal and Yes salivary gland normal Mouth: lips normal, tongue normal and salivary gland normal Teeth and Gingiva: abnormal tooth and associated gingiva and gingiva abnormal Throat: posterior oropharynx normal Eyes PERRL and EOMs intact bilaterally General Eye ED: Negative for pale conjunctiva or scleral icterus Neck no lymphadenopathy, supple and no JVD General: normal visual inspection; Negative for anterior neck swelling, tenderness or submandibular swelling Lymph Lymphatic: no lymphadenopathy noted; Negative for other Chest Wall inspection of chest normal and palpation of chest normal Chest: Negative for other Resp normal respiratory effort, no retractions and clear to auscultation bilaterally Effort and Inspection: Negative for other Cardio regular rate, regular rhythm, S1 normal heart sound, S2 normal heart sound and no murmurs Jugular Venous Distention: Negative for other Palpation: Negative for palpable S3 or palpable S4 Rate: Negative for bradycardia or tachycardic Rhythm: Negative for abnormal rhythm GI normal to inspection, nondistended, normoactive bowel sounds, non-tender and non-distended Palpation: soft Back/Spine no CVA tenderness General Back: Negative for CVA tenderness Cervical Spine: Negative for other Extremity normal to inspection and no joint enlargement General Extremety ED: Negative for edema or other findings General Extremity: Negative for edema or other findings Neuro oriented x3, CN's II-XII intact bilaterally, moves all extremities and no focal motor deficits Sensorium / Orientation: alert, oriented to person, oriented to place and oriented to time; Negative for orientation impaired Gait (Neuro): Negative for normal gait Motor Exam: strength 5/5 throughout; Negative for general weakness or strength abnormal Psych mental status grossly normal Appearance: Negative for unkempt Skin no rashes or lesions noted and no wounds Image ED - URI/Dental Diagram: 1. Left lower premolar erosion. Tenderness and soft tissue swelling. No drainable abscess. No trismus. 2. Left lower jaw localized swelling. MDM MDM MDM Narrative Medical decision making narrative: Patient will be treated with IV Unasyn which she has received before. Toradol morphine for pain. Zofran for nausea. Outpatient referral to a dentist. Patient doing well at repeat exam at 2:00 and also at 3:10 PM. She received a second dose of IV Unasyn and be discharged home outpatient follow-up with a dentist. She has prescriptions for antibiotics and nausea medication and pain medication at home. They may set her up for outpatient IV antibiotics to help get this under control. She does not require admission at this time. There is nothing to drain at this time. Repeat exam patient doing well at 8:50 PM. Feeling better. Pain is much improved. She is comfortable being discharged home. Outpatient follow-up with a dentist. Continue her p.o. Augmentin or if need be IV antibiotics. History & Record Review Discussion w/independent historian: Patient Additional record(s) reviewed:: Prior inpatient record, Prior outpatient record,Prior ED visit and Prior labs Discharge Plan Triage Chief Complaint: Dental ED Provider: Per Marrero Dx/Rx/DC Orders Clinical Impression: Pain, dental, Dental abscess Instructions: Dental Abscess, ED Dental Pain Prescriptions: No Action atorvastatin 20 mg tablet 20 mg PO DAILY Qty: 30 11RF propranolol [Inderal LA] 80 mg capsule,extended release 24 hr 80 mg PO DAILY Qty: 30 11RF albuterol sulfate 1 INHALER inhaler 1 - 2 puff Inhalation Q4H PRN PRN (Reason: Asthma) ibuprofen 200 MG tablet 200 mg PO Q6H PRN PRN (Reason: Pain) hydrochlorothiazide 25 mg tablet 12.5 mg PO PRN PRN (Reason: swelling) Patient Comments: 12.5 mg PO daily for edema; Rx Instructions: 12.5 mg PO daily for edema; meloxicam 15 MG tablet 13 mg PO DAILY ondansetron 4 MG tablet 4 mg PO Q8H PRN PRN (Reason: Nausea) Qty: 10 0RF aspirin 81 MG tablet,chewable 81 mg PO DAILY@0800 Qty: 30 0RF promethazine 25 mg tablet 25 mg PO Q6H PRN (Reason: nausea and vomiting) Qty: 20 0RF sumatriptan succinate 6 mg/0.5 mL pen injector 6 mg subcut X1 PRN (Reason: migraine headache) Qty: 1 0RF hydrocodone-acetaminophen 5-325 mg tablet 1 tab PO Q6H PRN PRN (Reason: Pain) 3 Days Qty: 10 0RF amoxicillin-pot clavulanate [amoxicillin-pot clavulanate] 875-125 mg tablet 875 mg PO Q12H Qty: 20 0RF potassium chloride 10 mEq tablet extended release 10 meq PO DAILY Qty: 30 11RF digoxin 250 mcg tablet 0.25 mg PO DAILY Qty: 30 11RF Primary Care Provider: Leidy Crawford Referrals: Leidy Crawford DO [Primary Care Provider] - As Needed Activity Restrictions/Additional Instructions: Motrin and Tylenol and pain meds as needed for pain. Plenty of fluids and rest. Continue antibiotics orally and/or follow-up for further IV antibiotics. Follow-up with a local dentist to have that tooth pulled. Disposition Disposition: Home, Self Care What to do if you have Problems For any increased pain, shortness of breath, bleeding, nausea or vomiting, chestpain, or any unexpected problems, contact your Primary Care Provider. Call [facility] ([phone]) or report to the closest Emergency Room. Call 911 if necessary. 12/17/232053 <Electronically signed by Per Marrero MD> Cosigner Signature (if applicable): CC: Dr. Leidy Crawford DO ~ Signed [facility] Work Phone: Evaluation note Note Date & Type Note Facility Evaluation note No assessment information availa ble [facility] Work Phone: Hospital Discharge instructions Note Date & Type Note Facility Hospital Discharge instructions Additional Instructions Motrin and Tylenol and pain meds as needed for pain. Plenty of fluids and rest. Continue antibiotics orally and/or follow-up for further IV antibiotics. Follow-up with a local dentist to have that tooth pulled. [facility] Work Phone: Reason for referral (narrative) Note Date & Type Note Facility Reason for referral (narrative) No reason for referral information available [facility] Work Phone: Summary Purpose Family History No Family History Records Found Relationship Condition Age at Onset Recorded Date/T moises Not Specified Amyotrophic lateral sclerosis Unknown Cardiac disease Unknown Myocardial infarction Unknown Hypertension Unknown mother Malignant neoplasm of breast Unknown grandmother Malignant neoplasm of breast Unknown Advance Directives No Advanced Directives Records Found Advance Directive Response Recorded Date/ Time Advance Directives No May 01, 2014 9:39am Living Will No February 29, 2020 1:05pm Power of Creative Perfumer No February 28 1:05pm Advance Directive Response Recorded Date/ Time Advance Directives No May 01, 2014 9:39am Living Will No June 21 7:32pm Power of Creative Perfumer No June 21, 2023 7:32pm Advance Directive Response Recorded Date/ Time Advance Directives No May 01, 2014 9:39am Living Will No December 14, 2023 12:52pm Power of Creative Perfumer No December 13 12:52pm Advance Directive Response Recorded Date/ Time Advance Directives No May 01, 2014 9:39am Living Will No December 16, 2023 10:43am Power of Creative Perfumer No December 15 10:43am Advance Directive Response Recorded Date/ Time Advance Directives No May 01, 2014 9:39am Living Will No December 17, 2023 12:59pm Power of Creative Perfumer No December 16 12:59pm Advance Directive Response Recorded Date/ Time Living Will No December 17, 2023 12:59pm Do you have a Healthcare Power of Creative Perfumer? No December 17, 2023 12:59pm Advance Directives No May 01, 2014 9:39am Chief Complaint and Reason for Visit Chief Complaint COVID-19 Chief Complaint n/v/d Chief Complaint ABSCESS Chief Complaint ABSCESS ABSCESS Chief Complaint ABSCESS ABSCESS DENTAL Chief Complaint Admit Date LEFT ANKLE SPRAIN/LEFT FOOT PAIN December 102024 12:27pm [facility] December 23, 2024 12: 53pm Chief Complaint Admit Date LEFT ANKLE SPRAIN/LEFT FOOT PAIN December 102024 12:27pm [facility] December 23, 2024 12: 53pm PRE OP LABS January 18, 2025 2:19p m Additional Source Comments INFORMATION SOURCE (unrecogn ized section and content) DATE CREATED AUTHOR 01/04/2019 [facility] DATE CREATED AUTHOR AUTHOR'S ORGANIZ ATION 01/04/2019 [facility] DATE CREATED AUTHOR AUTHOR'S ORGANIZ ATION 02/12/2025 [facility] Goals (unrecognized section and content) Goals may be documented in a n alternate sectionGoals may be documented in an alternate sectionGoals may be documented in an alternate sectionGoals may be documented in an alternate sectionGoals may be documented in an alternate sectionGoals may be documented in an alternate sectionGoals may be documented in an alternate sectionGoals may be documented in an alternate section Care Teams (unrecognized sec tion and content) Team Status: Active Member Role Status Dates Dr. Leidy Crawford DO Family Provider Active Dr. Leidy Crawford DO Primary Care Provider Active Team Status: Inactive Member Role Status Dates Dr. Leidy Crawford DO Primary Care Provider Active Dr. Sol Shirley MD Emergency Provider Active Team Status: Inactive Member Role Status Dates Dr. Leidy Crawford DO Primary Care Provider Active Dr. Panda Young DO Emergency Provider Active Team Status: Inactive Member Role Status Dates Dr. Leidy Crawford DO Primary Care Provider Active Dr. Per Marrero MD Emergency Provider Active Team Status: Active Member Role Status Dates Dr. Ginna Kowalski MD Primary Care Provider Active Team Status: Inactive Member Role Status Dates Dr. Ginna Kowalski MD Primary Care Provider Active Start: December 19, 2024 End: December 19, 2024 Dr. Markel Leyva DPM Attending Provider Active Start: December 19, 2024 End: December 19, 2024 Dr. Markel Leyva DPM Referring Provider Active Start: December 19, 2024 End: December 19, 2024 Team Status: Active Member Role Status Dates Dr. Ginna Kowalski MD Primary Care Provider Active Start: December 23, 2024 Dr. Ginna Kowalski MD Attending Provider Active Start: December 23, 2024 Dr. Ginna Kowalski MD Referring Provider Active Start: December 23, 2024 Team Status: Active Member Role Status Dates Dr. Ginna Kowalski MD Primary Care Provider Active Start: December 23, 2024 Dr. Kam Fonseca MD Attending Provider Active S tart: December 23, 2024 Team Status: Inactive Member Role Status Dates Dr. Ginna Kowalski MD Primary Care Provider Active Start: December 23, 2024 End: December 23, 2024 Dr. Ginna Kowalski MD Attending Provider Active Start: December 23, 2024 End: December 23, 2024 Dr. Ginna Kowalski MD Referring Provider Active Start: December 23, 2024 End: December 23, 2024 Team Status: Inactive Member Role Status Dates Dr. Ginna Kowalski MD Primary Care Provider Active Start: January 18, 2025 End: January 18, 2025 Dr. Ginna Kowalski MD Attending Provider Active Start: January 18, 2025 End: January 18, 2025 FOR RECORDS PERTAINING TO PATIENTS WHO ARE OR HAVE BEEN ENROLLED IN A CHEMICAL DEPENDENCY/SUBSTANCEABUSE PROGRAM, SOME INFORMATION MAY BE OMITTED. This clinical summary was aggregated from multiple sources. Caution should be exercised in using it in the provision of clinical care. This summary normalizes information from multiple sources, and as a consequence, information in this document may materially change the coding, format and clinical context of patient data. In addition, data may be omitted in some cases. CLINICAL DECISIONS SHOULD BE BASED ON THE PRIMARY CLINICAL RECORDS. [employer] provides no warranty or guarantee of the accuracy or completeness of information in this document.
--- NOTE | 2025-02-21 06:43 | PCM.PRE.AN2 ---
ASA Classification* ASA Classification ASA Classification: 2 Assessment & Plan Anesthesia* Anesthesia Assessment Anesthesia Assessment: Discussed sedation and/or anesthesia options, risks, benefits, and alternatives with patient/parents/legal guardian/POA. Questions invited. The patient/parents/legal guardian/POA seems to understand and agrees to proceed with anesthesia plan. Reviewed the physical assessment, medical history, allergy history and patient home medications list prior to surgery/procedure/anesthetic and documented any changes. Performed airway and anesthesia risk assessments. Anesthesia Type Anesthesia Type: General (block only if surgeon request) Anesthesia Focused Assessment* Airway Assessment Mouth opens: >3 cm Mallampati Score: II Labs Anesthesia Preop lab: CBC WBC 6.0 K/mm3 (4.4-11.0) 07/01/24 12:39 07/01/24 RBC 4.51 M/mm3 (4.2-5.4) 07/01/24 12:39 07/01/24 Hgb 14.1 g/dL (12.0-15.0) 07/01/24 12:39 07/01/24 Hct 42.6 % (37-47) 07/01/24 12:39 07/01/24 Plt Count 333 K/mm3 (150-450) 07/01/24 12:39 07/01/24 CHEMISTRY Potassium 3.7 mmol/L (3.5-5.1) 07/01/24 12:39 07/01/24 Sodium 142 mmol/L (136-145) 07/01/24 12:39 07/01/24 Magnesium 2.2 mg/dL (1.5-2.2) 02/07/25 13:25 02/07/25 Phosphorus 3.3 mg/dL (2.5-4.9) 07/01/24 12:39 07/01/24 BUN 10 mg/dL (7-18) 07/01/24 12:39 07/01/24 Creatinine 0.60 mg/dL (0.55-1.02) 07/01/24 12:39 07/01/24 Glucose 106 mg/dL (74-106) 07/01/24 12:39 07/01/24 TSH 0.49 uIU/mL (0.358-3.74) 07/05/18 17:20 07/05/18 COAG PT 13.7 SECONDS (11.7-14.9) 06/15/18 13:33 06/15/18 Pre-Assessment Diagnosis/Proposed Procedure Planned Operative Procedure(s): HARVEST OF BONE MARROW ASPIRATE CONCENTRATE,BONILLA OSTEOTOMY WITH LATERAL SHIFT OF LEFT CALCANEOUS WITH PERONEOUS LONGIS BREVIS TENDON TRANSFER.ENDOSCOPIC PLANTAR FASCIA RELEASE,DORSIFLEXION OSTEOTOMY OF THE FIRST METATARSAL,OSTEOTOMY OF THE LEFT TARSAL BONE. 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 When Was Last Pacemaker Check QUESTION #4 FULL TEXT: You/Your Family Experience fever (hyperthermia) with Anesthesia Last Oral Intake Last Oral intake: Last Oral Intake NPO since Meds taken in AM with sips of water? Meds patient instructed to take am of surgery PONV PONV - air conditioning specialist: PONV - air conditioning specialist Female Yes 02/07/25 09:20 HX of Motion Sickness No 02/07/25 09:20 HX of N/V After Surgery No 02/07/25 09:20 Non-Smoker No 02/07/25 09:20 Duration of Surgery greater Yes 02/07/25 09:20 than 60 minutes Number of Risk Factors 2 02/07/25 09:20 PONV Score Moderate Risk 02/07/25 09:20 Height & Weight Height & Weight: Anesthesia: Height & Weight Height 5 ft 6 in 02/20/25 08:50 Weight: 90.718 kg 02/20/25 08:50 Respiratory Assessment Respiratory Assessment - air conditioning specialist: Respiratory Tract Infection Hx - air conditioning specialist Hx Respiratory Tract Infection No 02/07/25 09:20 STOP Sleep Apnea STOP Sleep Apnea - air conditioning specialist: STOP Sleep Apnea - air conditioning specialist Hx Hypertension No: HYPOTENSION 02/07/25 09:20 Hx Sleep Apnea No 02/07/25 09:20 CPAP No 06/15/18 13:23 BIPAP No 06/15/18 13:23 Do you snore loudly (louder No 02/07/25 09:20 than talking or can be heard Do you often feel tired/ No 02/07/25 09:20 fatigued/ sleepy during daytime? Has anyone observed you stop No 02/07/25 09:20 breathing during sleep? STOP Results Negative 02/07/25 09:20 QUESTION #5 FULL TEXT : Do you snore loudly (louder than talking or can be heard through closed doors)? 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 Specify any problems Hx of Preganancy in last 3 No 02/07/25 09:20 Months Nurse Filling Out Transfusion DSCHRIBER 02/07/25 09:20 & Questions: Date: 02/07/25 02/07/25 09:20 Time: 09:21 02/07/25 09:20 Patient unable to answer at this time (ie. confused, unrespo /Reproduction History /Reproductive History - air conditioning specialist: /Reproductive Hx- air conditioning specialist Hx Now No 02/07/25 09:20 Gestational Age (in weeks): EDC: Hx Hx Para Hx Section SAB No 02/07/25 09:20 Active Medications Active Medications: Current Medications Generic Name Dose Route Start Last Admin Trade Name Freq PRN Reason Stop Dose Admin Acetaminophen 1,000 mg 02/21/25 07:30 Acetaminophen 500 Mg Tablet PO 02/21/25 07:31 PREOP ONE Gabapentin 600 mg 02/21/25 07:30 Gabapentin 600 Mg Tablet PO 02/21/25 07:31 PREOP ONE Cefazolin Sodium 2 gm/ Sodium 110 mls @ 150 mls/hr 02/21/25 07:30 Chloride IV 02/21/25 08:13 INTRAOP ONE Magnesium Sulfate 1 gm/ 102 mls @ 408 mls/hr 02/21/25 07:30 Dextrose IV 02/21/25 07:44 INTRAOP ONE Lactated Ringer's 1,000 mls @ 15 mls/hr 02/21/25 06:15 IV .Q48H ADDSI Insulin Human Lispro 1 - 6 unit 02/21/25 07:30 Insulin Lispro 100 Unit/Ml Insuln.Pen SC Q4H PRN PRN BG>/= 180, SEE PROTOCOL Protocol PFSH Medical History Wears glasses Post-menopausal Rheumatoid arthritis Arthritis Back pain Migraine headache History of GI bleed Gastric reflux Smoker History of pain when walking History of edema Cardiology follow-up encounter Bradycardia Hypotension History of echocardiogram Family history of ischemic heart disease History of eating disorder History of insomnia Migraine Rheumatoid arthritis Home Medications ?Medication ?Instructions ?Recorded ?Last Taken ?Type albuterol sulfate 90 mcg/actuation 1 - 2 puff Inhalation Q4H PRN PRN 05/01/14 02/20/25 History aerosol inhaler Asthma ibuprofen 200 mg tablet 200 mg PO Q6H PRN PRN Pain 03/22/17 02/20/25 History promethazine 25 mg tablet 25 mg PO Q6H PRN nausea and 06/21/23 Unknown Rx vomiting #20 tabs sumatriptan succinate 6 mg/0.5 mL 6 mg (0.5 mL) subcut X1 PRN 06/21/23 Unknown Rx subcutaneous pen injector migraine headache #1 mL butalbital 50 mg-acetaminophen 325 1 cap PO Q4H PRN pain 02/07/25 Unknown History mg-caffeine 40 mg-codeine 30 mg cap ergocalciferol (vitamin D2) 1,250 1,250 mcg PO QWEEK 02/07/25 02/17/25 History mcg (50,000 unit) capsule lorazepam 0.5 mg tablet 0.5 mg PO PRN PRN DENTAL 02/07/25 Unknown History ondansetron 4 mg disintegrating 8 mg PO Q8H PRN PRN Nausea 02/07/25 02/20/25 History tablet Allergy/AdvReac Type Severity Reaction Status Date / Time diltiazem AdvReac Intermediate Leg Verified 12/16/23 10:28 swelling gabapentin (From [facility]) AdvReac Intermediate Edema Verified 12/16/23 10:28 Family History Mother Breast cancer Grandmother Breast cancer Other Heart disease Hypertension Isela Gehrigs disease Myocardial infarction Surgical History History of dental surgery History of left heart catheterization (~06/15/18) History of lumpectomy of right breast History of section history of wrist surgery history of coccyx removal 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 History of cholecystectomy History of foot surgery History of rotator cuff surgery Hx of left knee surgery History of back surgery Social History Smoking Status: Current every day smoker tobacco type: cigarettes alcohol intake: never substance use type: does not use Review of Systems (Anesthesia) ROS Narrative System reviewed and no additional complaints, except as documented.
[2025-02-21] MEDS: Lactated Ringers 1,000 ML 15 ML IV (06:44)
[2025-02-21] MEDS: Magnesium 1 GM over 15 mins IV (06:46)
[2025-02-21] MEDS: Gabapentin 600 MG Tablet PO (06:46)
[2025-02-21] MEDS: Acetaminophen 500 MG Tablet 1000 MG PO (06:46)
[2025-02-21 06:50] LABS: Bedside Glucose 108 mg/dL (74-106)
[2025-02-21] MEDS: Cefazolin 2 GM in 0.9% Normal Saline (100mL Bag) 100 ML IV (07:39)
--- NOTE | 2025-02-21 07:42 | OP.PCM_ITS ---
Problems Associated Problem List Diagnoses (1) Pain in left foot: (2) Primary osteoarthritis, left ankle and foot: (3) Cavus deformity of left foot: (4) Other specified congenital deformities of feet: Operative Report (Standard) Operative Information Date of Procedure: 02/21/25 Pre-Operative Diagnosis: 1. Pain, left foot 2. Primary osteoarthritis, left foot 3. Cavus foot deformity, left foot 4. Congenital deformity, left foot Post-Operative Diagnosis: 1. Pain, left foot 2. Primary osteoarthritis, left foot 3. Cavus foot deformity, left foot 4. Congenital deformity, left foot Surgery/Procedure Performed: Procedure #1: Clancy of bone marrow aspirate concentrate, left foot Procedure #2: Endoscopic plantar fascial release, left foot Procedure #3: Osteotomy, tarsal bone, calcaneal navicular coalition, left foot Procedure #4: Osteotomy of calcaneus, Rascon osteotomy with lateral shift, left foot Procedure #5: Tendon transfer, peroneal longus to peroneal brevis, left foot Procedure #6: Osteotomy of metatarsal, dorsiflexor osteotomy first metatarsal, left foot Procedure #7: Application of posterior splint, left lower extremity can sealer: Yes [employer]: Angel Hurst Tasks completed by first aid officer: Opening, Closing, Harvesting grafts, Dissecting tissue and Implanting device Additional junior administrative assistant?: No Type of Anesthesia: General/Regional and Local RN Documented Start/Stop Times: Operation Date: 02/21/25 07:30 Case Time Into Pre-Op 02/21/25 06:04 Anesthesia Start 02/21/25 07:39 Into Room 02/21/25 07:39 Procedure Start 02/21/25 08:01 Procedure End 02/21/25 11:48 Anesthesia End 02/21/25 11:55 Out of Room 02/21/25 11:55 Into Recovery 02/21/25 11:58 Out of Recovery 02/21/25 13:07 Into Phase II Recovery 02/21/25 13:08 Out of Phase II 02/21/25 13:38 Procedure Start Time: 08:01 Procedure Stop Time: 11:48 Select all DRAINS/GRAFTS/IMPLANTS that apply: Graft Graft details: Vitoss , Tissue Tissue details: 2 cc via flow, 8 cc of bone marrow aspirate concentrate and Implanted device Implanted device details: 500 headless compression screws, plate and 2.7 screws locking and nonlocking Special Medications: Per anesthesia Estimated Blood Loss: 40 cc Fluids Replaced: Per anesthesia Specimen collected: No Description of surgery: Indications For Operation: Ms. Cullen is a 60-year-old female who was admitted to [facility] for elective left foot major surgery due to her cavus deformity. Patient is well-known to my private office and has been treated conservatively for greater than 6 months due to her cavus foot deformity. 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 We have exhausted all conservative treatment consisting of nonsteroidal anti-inflammatories, taping, shoe gear modification, pain medication, injections professional and home physical therapy. Due to the patient failing conservative treatment it was deemed necessary at this time to take the patient to the operating room performed above procedure. The patient did have surgical consultation with all risk and benefits discussed with her in great detail in the office. Chart reviewed consent was signed. Due to the patient's continued deformity as well as increased pain with failing conservative treatment it was deemed necessary at this time to take the patient the operating room performed above procedure to help reconstruct her foot to a more rectus foot type, allowing a brace to fit in the near future as well as to help decrease of the patient's constant pain. The nature of the problem, anticipated procedures, postop recovery/convalences and risk/complications include but not limited to infection, wound healing complications, digital amputation, hypertrophic scarring, numbness, tingling, chronic pain, CRPS, over and under correction, recurrence of deformity, DVT and or PE and the need for further surgery have been discussed in great detail with the patient. All questions have been answered to the patient's satisfaction. There are no guarantees given as to the outcome of the procedure. Description of Procedure: Under mild sedation, the patient was brought into the operating room and placed on the operating table in supine position. Once the patient was under general anesthesia with laryngeal mask airway, the left lower extremity was blocked using approximately 10 cc 0.5% Marcaine plain to the saphenous nerve to left lower extremity. The patient did receive a popliteal block in the PACU by anesthesia prior to the case, please see procedure note from anesthesia further detail. Next, a well-padded thigh tourniquet was applied to the left lower extremity. Next, the left lower extremity was prepped and draped in normal aseptic manner. Next, a timeout was then undertaken verifying the correct patient, extremity, visibility of preoperative markings, availability of the equipment. Procedure #1: Clancy of bone marrow aspirate concentrate, left foot (CPT code: 88557) Next, attention was directed to the level of the calcaneus at the lateral wall. Using a trocar and mallet, the trocar was administered laterally through the lateral wall of the calcaneus without incident. 60 cc of bone marrow aspirate concentrate was harvested and packed back table to be spun down later for the case. The trocar was removed without incident. The area was flushed with copious normal saline and closed with 3-0 nylon in simple erupted suture technique. Next, attention was directed to the left lower extremity. Using a 4 inch Esmarch, left lower extremity was exsanguinated and elevated to 60 degrees for 1 minute. Procedure #2: Endoscopic plantar fascial release, left foot (CPT code: 96027) Next, attention was directed to the left heel. Using a large fluoroscopy the calcaneal tubercle was identified and marked. The incision was placed 20 mm superior to the level of the calcaneal tubercle. A medial stab incision was performed and the trocar was advanced from medial to lateral inferior to the plantar fascial band, once the trocar was tenting laterally a stab incision was also made to advance the trocar.. The glide window was inserted followed by the 4.0 mm 30 degree scope. The plantar fascial band was identified and then released with a combination of triangle blade and hook. Again the area was identified to show complete release of the plantar fascia band at this time. The area was flushed with cold dolly normal saline. All hardware was removed from the surgical area and the medial and lateral stab incisions were closed with 3-0 nylon in simple erupted suture technique. Procedure #3: Osteotomy, tarsal bone, calcaneal navicular coalition, left foot (CPT code: 67928) Next, attention was directed to the lateral foot at the level of the calcaneonavicular coalition. The incision was marked out with Charler[place] and sterile skin marker. Next, #15 blade was used to make a full-thickness incision down to subcutaneous tissue, vessels were identified and cauterized as necessary. Continued blunt dissection was carried down to the level of bone with care to identify the intermediate dorsal cutaneous nerve which was eventually retracted. The coalition was identified and freed using a combination of osteotome and rongeur. All sharp edges were smoothed out with power rasp. The area was flushed with cold dolly normal saline. There showed evidence of improved range of motion to the subtalar joint after removal of the coalition. Complete removal of the coalition was identified clinically as well as with largely on fluoroscopy. Next, Gelfoam was applied to the void of the CN coalition and the deep fascia layer was reapproximated closed using 3-0 Vicryl in running locking suture technique. Procedure #4: Osteotomy of calcaneus, Rascon osteotomy with lateral shift, left foot (CPT code: 33516) Next, attention was directed to the lateral side of the heel of the left lower extremity. Using a [place]ler[place] and sterile skin marker the incision was marked out with care to avoid the calcaneal tuber. Once the incision was planned, a #15 blade was used to make a full-thickness incision down to subcutaneous tissue. Continued blunt dissection was carried down to the level of bone with care to identify the peroneal tendons and sural nerve which were all retracted superiorly. Next the osteotomy was identified with a [place]ler[place] and large C-arm fluoroscopy. Next, using a sagittal saw and #111 blade, 2 cuts were made 1 perpendicular to the long axis of the calcaneus and another osteotomy was made to allow a wedge closure, closing base wedge/Rascon osteotomy to allow for a more rectus heel bone with lateral shift. Once all necessary cuts were identified the area was flushed with copious normal saline. There showed great closure from the wedge osteotomy followed by lateral shift which was then pinned in place with 2-0 Steinmann pins. Calcaneal view, lateral view as well as medial oblique view were all used to identify good rectus and lateral shift alignment of the heel bone as well as clinically. 2 small stab incisions were carried down and around the 2-0 Steinmann pins and x2 5.0 mm headless screws were placed using AO technique. The screw show excellent bite and replaced well in the calcaneus. The lateral column of the left foot was loaded and a rectus foot was identified. Next, there was evidence of a small void on the lateral side of the calcaneus and a small amount of Vitoss bone matrix mixed with bone marrow aspirate concentrate was placed to fill the void. Procedure #5: Tendon transfer, peroneal longus to peroneal brevis, left foot (CPT code: 52096) Next, was attention back to the incision at the level of the CN coalition. Continued blunt dissection was carried down to the level of the peroneal tendons. The brevis was identified and retracted. Next, the longus was identified and range of motion of the first metatarsal was performed during the procedure to identify the longus correctly. Once identified the longus was cut as it curved under the cuboid. The end of the peroneal longus was cleaned up, the foot was placed in eversion and the tendon transfer of the peroneus longus to the peroneal brevis was performed and secured in place with baseball stitch using 2 point 0 PDS. Procedure #6: Osteotomy of metatarsal, dorsiflexor osteotomy first metatarsal, left foot (CPT code: 88047) Next, attention was directed to the dorsal foot at the level of the first metatarsal. The incision was marked out with Charleroi and large Fluoroscopy. Using a #15 blade full-thickness vision down to subcutaneous tissue was performed. The long extensor tendon was identified and retracted laterally and continue sharp dissection was carried down around to the level of the first tarsometatarsal joint and shaft of the first metatarsal. Next, using a sagittal saw and #111 blade, a perpendicular osteotomy was performed with care not to violate the plantar shelf of the first metatarsal proximally then a small wedge was carried parallel to the previous osteotomy to avoid creating a bunion deformity to the first metatarsal. The first metatarsal was dorsiflexed manually which showed good reduction at this time. Continued feathering was carried to allow a better tight fit with care not to violate the plantar cortex of the first metatarsal. The position was secured and held in place with 2 Steinmann pins. The [place] Y plate was applied and secured in place with BB tacks. 2 proximal holes were drilled and 2 nonlocking screws were placed. Next, the oblong hole was drilled eccentrically and a nonlocking screw was placed allowing for a tight fit and compression across the proximal osteotomy. Next a combination of locking nonlocking screws were placed and good apposition of the osteotomy was noted clinically as well as on large count fluoroscopy. The area was flushed with copious ounce of normal saline. At this time the left thigh tourniquet was deflated and reperfusion was noted instantly. All bleeders were cauterized and ligated as necessary. Next, all incisions were flushed with copious normal saline. All deep layers were closed with 3-0 Vicryl in running locking suture technique. All subcutaneous layers were reapproximated closed with 3-0 Vicryl in running suture technique. The dorsal first metatarsal incision, skin was reapproximated and closed with 3-0 nylon in horizontal mattress suture technique. The dorsal lateral incision, skin was reapproximated and closed using 2-0 Vicryl in horizontal mattress suture technique. The lateral heel incision, skin was reapproximated and closed using 2-0 nylon in horizontal mattress suture technique. The left lower extremities were cleaned and patted dry. Bone marrow aspirate concentrate was administered to the level of all osteotomies followed by 2 cc of via flow to all incisions to help with healing and decrease scar formation. Platelet poor plasma was sprayed on all incisions. Procedure #7: Application of posterior splint, left lower extremity (CPT code: 19028?LT) All incision were dressed with Betadine soaked Adaptic, dry sterile dressing and double layer Marrero AO splint at 90 degrees was applied to left lower extremity. The patient tolerated the procedure and anesthesia well and apparent satisf actory condition and was transported to the PACU for further monitoring prior to discharge home. Vital signs stable and vascular status intact to all digits bilateral. Need for skilled junior administrative assistant: Angel Hurst DPM was critical to the outcome of the case. During the course of the procedure the junior administrative assistant physician played a vital role. His intimate knowledge of my steps in the procedure aided in safe and expedient completion of the procedure. The junior administrative assistant surgeon played a vital role in positioning particularly in obtaining the appropriate positioning. The junior administrative assistant surgeon was also vital in the retraction of soft tissues during the exposure and protecting vital structures when needed. The surgeon was also vital and obtaining reduction and assisting with hardware placement throughout the case. Post Operative Plan: Weightbearing: Nonweightbearing to left lower extremity with assistive knee scooter and/or crutches. Full weightbearing right lower extremity. Antibiotics: Initial 2 g Ancef prior to incision. Redose of Ancef 2 g at 4 hours DVT Prophylaxis: 81 mg aspirin Castillo: None Dressing: Betadine soaked Adaptic, dry sterile dressing double layer Marrero AO splint 90 degrees left lower extremity. X-Rays: Post-operative films taken on the operating room. Pain Medication: OxyContin 5 mg, Tylenol Follow-up: Patient will follow-up in 1 week to [address] Leyva in private office. Surgical Findings: 1. 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 2. Patient has evidence of cavus foot deformity that was improved with above procedure. Complications Complications: No Admit VTE Documentation VTE Present on Admission: No VTE Mechan Device Prophylaxis: SCD's VTE Pharm Prophylaxis ordered?: Yes
--- NOTE | 2025-02-21 08:01 | RAD_ITS ---
EXAM: XR Left Foot Complete, 3 or More Views CLINICAL INDICATION: 2ND AND 3RD DIGIT TECHNIQUE: Frontal, lateral and oblique views of the left foot. COMPARISON: No relevant prior studies available. FINDINGS: BONES/JOINTS: Unremarkable. No acute fracture. No dislocation. SOFT TISSUES: Unremarkable. No radiopaque foreign body. OTHER FINDINGS: Fluoroscopic guidance was used intraoperatively. A total of 6 images were obtained. Total fluoroscopy time was 241.8 seconds. Total radiation dose 7.38 mGy. RAD/Foot min 3 Views IMPRESSION: Fluoroscopic guidance was used intraoperatively. Please refer to operative not e for further details. Reading Location: [facility]
[2025-02-21] MEDS: Calcium Chloride 1 GM/10 ML Syringe (08:31)
[2025-02-21] MEDS: Heparin 10,000 UNITS/10 ML Vial 10000 UNITS (08:32)
[2025-02-21] MEDS: Thrombin 5,000 IU Kit (PSA) 5,000 IU Vial 5000 IU TOPICAL (08:32)
[2025-02-21] MEDS: Bupivacaine Mpf 0.5% 30 ML VIAL (09:45)
--- NOTE | 2025-02-21 12:38 | PCM.POST.ANE ---
Anesthesia: Postop Eval I Current Vital Signs Temperature: 97.3 F Pulse Rate: 72 Blood Pressure: 127/66 Respiratory Rate: 16 Pulse Ox: 97 Assessment Airway patent: Yes Spontaneous unlabored respirations: Yes Mental status: Awake and Calm nausea: No Vomiting: No Anesthesia Complication: No Fluid Hydration Crystalloid volume administer (ml): 1,200 Total IV fluid infused: 1,200 Progress Note Anesthesia document: Postop Eval 1 completed: Yes
--- NOTE | 2025-02-21 12:55 | POSTOPAN2_ITS ---
Anesthesia Postop Eval I Sum Postop Eval Completion status Anesthesia document: Postop Eval 1 completed: Yes Anesthesia Postop Eval I Summary Anesthesia Postop Eval I Summary: Anesthesia Postop Eval I: Assessment Summary Airway patent Yes 02/21/25 12:38 TRAIN DIRECTOR.[email or web address] Spontaneous unlabored Yes 02/21/25 12:38 TRAIN DIRECTOR.BETH respirations Mental status Awake,Calm 02/21/25 12:38 TRAIN DIRECTOR.[email or web address] nausea No 02/21/25 12:38 TRAIN DIRECTOR.SKOBY Vomiting No 02/21/25 12:38 TRAIN DIRECTOR.HENRRYOBClifton Anesthesia Postop Eval I: Fluid Summary Crystalloid volume administer 1,200 02/21/25 12:38 TRAIN DIRECTOR.[email or web address] (ml) Colloids volume administered ( ml) Blood Product volume administered (ml) Total IV fluid infused 1,200 02/21/25 12:38 TRAIN DIRECTOR.HENRRYOBClifton Anesthesia Postop Eval I: Summary Notes Anesthesia Complication No 02/21/25 12:38 TRAIN DIRECTOR.BETH Anesthesia Complication Comment: Post-operative progress note Anesthesia: Postop Eval II Evaluation Mental status: Awake Pain Level: 2 nausea: No Vomiting: No
--- NOTE | 2025-02-21 12:55 | PCM.POSTANE2 ---
Anesthesia Postop Eval I Sum Postop Eval Completion status Anesthesia document: Postop Eval 1 completed: Yes Anesthesia Postop Eval I Summary Anesthesia Postop Eval I Summary: Anesthesia Postop Eval I: Assessment Summary Airway patent Yes 02/21/25 12:38 ENGINEERING MODEL MAKER.[email or web address] Spontaneous unlabored Yes 02/21/25 12:38 ENGINEERING MODEL MAKER.BETH respirations Mental status Awake,Calm 02/21/25 12:38 ENGINEERING MODEL MAKER.SKOBY nausea No 02/21/25 12:38 ENGINEERING MODEL MAKER.SKOBY Vomiting No 02/21/25 12:38 ENGINEERING MODEL MAKER.HENRRYOBClifton Anesthesia Postop Eval I: Fluid Summary Crystalloid volume administer 1,200 02/21/25 12:38 ENGINEERING MODEL MAKER.SKOBY (ml) Colloids volume administered ( ml) Blood Product volume administered (ml) Total IV fluid infused 1,200 02/21/25 12:38 ENGINEERING MODEL MAKER.HENRRYOBClifton Anesthesia Postop Eval I: Summary Notes Anesthesia Complication No 02/21/25 12:38 ENGINEERING MODEL MAKER.BETH Anesthesia Complication Comment: Post-operative progress note Anesthesia: Postop Eval II Evaluation Mental status: Awake Pain Level: 2 nausea: No Vomiting: No
[2025-02-21] MEDS: Ketorolac 30 MG/ML Syringe IV (13:03)
== END 2025-02-21 13:38 | disposition home or self-care (01) ==
LOC: SDC 05:47 → AC 05:49
PROVIDERS: PCP Family Medicine; Visit Provider Podiatrist Foot & Ankle Surgery
PROC: (CPT 38220; principal; 2025-02-21 07:15)
DX: Q66.72 Congenital pes cavus, left foot (principal); M06.9 Rheumatoid arthritis, unspecified; Q66.89 Other specified congenital deformities of feet; M19.072 Primary osteoarthritis, left ankle and foot; K21.9 Gastro-esophageal reflux disease without esophagitis; G43.909 Migraine, unspecified, not intractable, without status migrainosus; F17.210 Nicotine dependence, cigarettes, uncomplicated
CPT/HCPCS: 38220; 29893; 28116; 28300; 27690; 28306; 01480; 64447; 64450; 73630; 76000; 82962; C1713; J2405; J3475

== ENCOUNTER 2025-03-31 15:31 | Emergency (ER) | payer OTHER, SELFPAY ==
[2025-03-31 15:31] VITALS: BP 178/74; PULSE 90; RESP 16; TEMP 36.7; O2SAT 98; BMI 33.3
[2025-03-31 15:35] VITALS: BP 166/82
--- NOTE | 2025-03-31 15:42 | ED.VIS.GI ---
HPI HPI - GI History of Present Illness Chief Complaint: Nausea/Vomiting Informant: patient Nausea/Vomiting/Emesis GI Symptom: Positive for Nausea and Vomiting Diarrhea/Melena/Hematochezia GI Symptom: Positive for Hematochezia Narrative Narrative: 60-year-old female recent left foot reconstruction surgery. She has been using a lot of Motrin like 1000 mg 4 times a day and Tylenol. Believes that she may have a GI bleed. She has had a lot of nausea. Had a small amount of coffee-ground emesis and some bright red blood per rectum. Nausea today but no vomiting. No melena today. She currently is on Protonix. Prior similar symptoms: Yes Recent Illness/Hospitalization: No PFSH PFSH Medical History Wears glasses Post-menopausal Rheumatoid arthritis Arthritis Back pain Migraine headache History of GI bleed Gastric reflux Smoker History of pain when walking History of edema Cardiology follow-up encounter Bradycardia Hypotension History of echocardiogram Family history of ischemic heart disease History of eating disorder History of insomnia Migraine Rheumatoid arthritis Home Medications ?Medication ?Instructions ?Recorded ?Last Taken ?Type albuterol sulfate 90 mcg/actuation 1 - 2 puff Inhalation Q4H PRN PRN 05/01/14 02/20/25 History aerosol inhaler Asthma ibuprofen 200 mg tablet 200 mg PO Q6H PRN PRN Pain 03/22/17 02/20/25 History promethazine 25 mg tablet 25 mg PO Q6H PRN nausea and 06/21/23 Unknown Rx vomiting #20 tabs sumatriptan succinate 6 mg/0.5 mL 6 mg (0.5 mL) subcut X1 PRN 06/21/23 Unknown Rx subcutaneous pen injector migraine headache #1 mL butalbital 50 mg-acetaminophen 325 1 cap PO Q4H PRN pain 02/07/25 Unknown History mg-caffeine 40 mg-codeine 30 mg cap ergocalciferol (vitamin D2) 1,250 1,250 mcg PO QWEEK 02/07/25 02/17/25 History mcg (50,000 unit) capsule lorazepam 0.5 mg tablet 0.5 mg PO PRN PRN DENTAL 02/07/25 Unknown History ondansetron 4 mg disintegrating 8 mg PO Q8H PRN PRN Nausea 02/07/25 02/20/25 History tablet acetaminophen 500 mg tablet 1,000 mg (2 x 500 mg) PO Q6H 10 02/21/25 Unknown Rx (Tylenol Extra Strength) days #80 tabs ascorbic acid (vitamin C) 1,000 mg 1 g PO DAILY 90 days #90 tabs 02/21/25 Unknown Rx tablet (Vitamin C) aspirin 81 mg tablet,delayed 81 mg PO DAILY 30 days #30 tabs 02/21/25 Unknown Rx release calcium 500 mg (as 1 tab PO DAILY 90 days #90 tabs 02/21/25 Unknown Rx carbonate)-vitamin D3 15 mcg (600 unit) tablet (Os-Mumtaz 500 + D3) cyclobenzaprine 10 mg tablet 10 mg PO TID muscle spasm 7 days 02/21/25 Unknown Rx #21 tabs docusate sodium 100 mg capsule 100 mg PO DAILY 10 days #10 caps 02/21/25 Unknown Rx (Colace) oxycodone 5 mg tablet 5 mg PO Q4H pain 7 days #42 tabs 02/21/25 Unknown Rx oxycodone 5 mg tablet 5 mg PO Q4H pain 7 days #42 tabs 02/28/25 Unknown Rx oxycodone 5 mg tablet 5 mg PO Q4H pain 7 days #42 tabs 03/09/25 Unknown Rx cyclobenzaprine 10 mg tablet 10 mg PO TID muscle spasm 7 days 03/13/25 Unknown Rx #21 tabs pantoprazole 40 mg tablet,delayed 40 mg PO BID 10 days #20 tabs 03/15/25 Unknown Rx release (Protonix) Allergy/AdvReac Type Severity Reaction Status Date / Time diltiazem AdvReac Intermediate Leg Verified 03/31/25 15:32 swelling gabapentin (From [facility]) AdvReac Intermediate Edema Verified 03/31/25 15:32 Family History Mother Breast cancer Grandmother Breast cancer Other Heart disease Hypertension Isela Gehrigs disease Myocardial infarction Surgical History History of dental surgery History of left heart catheterization (~06/15/18) History of lumpectomy of right breast History of section history of wrist surgery history of coccyx removal 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 History of cholecystectomy History of foot surgery History of rotator cuff surgery Hx of left knee surgery History of back surgery Social History Smoking Status: Current every day smoker tobacco type: cigarettes alcohol intake: never substance use type: does not use ROS ROS ED ROS Narrative Nausea and vomiting. Medic easier. Constitutional Constitutional ED: Denies chills or fever(s) ENT ENT ED: Denies ear pain Cardiovascular Cardiovascular: Denies chest pain Respiratory/Chest Respiratory/Chest: Denies cough or dyspnea Gastrointestinal Gastrointestinal: Reports nausea and vomiting; Denies abdominal pain Genitourinary Genitourinary ED: Denies dysuria or hematuria Musculoskeletal Musculoskeletal: Denies arthralgias Integumentary Denies abscess Neurologic Neurologic: Denies headache(s) Psychiatric Psychiatric: Denies anxiety Endocrine Endocrinology: Denies polydipsia Hematologic/Lymphatic Hematologic/Lymphatic: Denies easy bleeding Allergic/Immunologic Allergic/Immunologic ED: Denies mouth swelling, tongue swelling or urticaria EXAM Physical Exam Narrative Exam Narrative: Well-appearing 60-year-old female. Vital signs stable afebrile. H EENT exam pupils round react light. Moist mucous membranes. Neck nontender no JVD. Lungs clear to auscultation bilaterally. Heart regular rhythm no murmur. Abdomen soft, nontender nondistended normal bowel sounds without peritoneal signs. Back nontender. Moving all 4 extremities. Left foot in a splint. Neurologically patient awake alert. Answering questions following commands. Const Vital Signs: 03/31/25 15:31 03/31/25 15:35 Temperature 98.1 F Temperature Source Oral Pulse Rate 90 Respiratory Rate 16 Blood Pressure 178/74 H 166/82 H Blood Pressure Mean 108 110 Pulse Ox 98 Oxygen Delivery Method Room Air Positive well nourished and well developed; Negative for cachectic, contractures or unkempt General Appearance ED: well developed and NAD; Negative for unkempt, cachectic, contractures or pallor Nutritional Appearance: Negative for cachectic HEENT Reports moist mucous membranes normocephalic and atraumatic Eyes PERRL and EOMs intact bilaterally Neck no lymphadenopathy, supple and no JVD Resp normal respiratory effort and clear to auscultation bilaterally Cardio regular rate, regular rhythm, S1 normal heart sound, S2 normal heart sound and no murmurs GI non-tender, non-distended and no masses Auscultation: normoactive bowel sounds Palpation: soft; Negative for tender, guarding, pulsatile mass or rebound tenderness present Back/Spine no CVA tenderness Extremity full ROM Extremity Narrative: Left foot in a splint recent surgery. General Extremety ED: Negative for edema General Extremity: Negative for edema Neuro CN's II-XII intact bilaterally and moves all extremities Sensorium / Orientation: alert, oriented to person, oriented to place and oriented to time Motor Exam: strength 5/5 throughout Psych mental status grossly normal and thought process normal Appearance: Negative for unkempt Skin no wounds General Skin Exam: Negative for jaundice or pallor Lesions: no lesions Rashes: no rashes MDM MDM MDM Narrative Medical decision making narrative: 60-year-old female with recent surgery taking a lot of NSAIDs and Tylenol possible GI bleed. Nausea. Possibly secondary to gastritis. Should be treated with Zofran. Morphine for foot pain. Liter fluid. Screening labs. Repeat exam patient is doing well at 4:32 PM. Nausea improved with Zofran. Pain in the foot improved with the morphine. Once the liter of fluid is finished will be discharged home with outpatient follow-up with her clinical care manager for her left foot. Continue on her Protonix. Be careful with any NSAIDs or aspirin due to possible gastritis or stable GI bleed. Return if worse. History & Record Review Additional record(s) reviewed:: Prior outpatient record, Prior ED visit and Prior labs Lab Data Attestation: I reviewed the patient's lab results. Lab results narrative: CBC normal white count 7.4 H&H 13.3 and 39.7 which is her baseline blood count. Platelets 333. Electrolytes show a normal gap of 14 BUN and creatinine 10 and 0.6. Liver enzymes are normal. Labs: Laboratory Results - last 24 hr 03/31/25 15:37 WBC 7.4 RBC 4.27 Hgb 13.3 Hct 39.7 MCV 93.0 MCH 31.1 MCHC 33.5 RDW Std Deviation 45.1 H RDW Coeff of Sebastien 13.3 Plt Count 333 MPV 9.0 Immature Gran % (Auto) 0.300 Neut % (Auto) 55.3 Lymph % (Auto) 35.6 Harlan % (Auto) 6.9 Eos % (Auto) 1.1 Baso % (Auto) 0.8 Absolute Neuts (auto) 4.1 Absolute Lymphs (auto) 2.62 Nucleated RBC % 0 Sodium 142 Potassium 3.8 Chloride 105 Carbon Dioxide 23.0 Anion Gap 14 BUN 10 Creatinine 0.63 L Estim Creat Clear Calc 109.53 Est GFR (MDRD) Non-Af 102 BUN/Creatinine Ratio 15.4 Glucose 90 Calcium 9.4 Total Bilirubin 0.21 AST 18 ALT 25 Alkaline Phosphatase 95 Total Protein 7.1 Albumin 4.3 Globulin 2.9 Albumin/Globulin Ratio 1.5 Discharge Plan Triage Chief Complaint: Nausea/Vomiting ED Provider: Per Marrero Dx/Rx/DC Orders Prescriptions: No Action albuterol sulfate 1 INHALER inhaler 1 - 2 puff Inhalation Q4H PRN PRN (Reason: Asthma) ibuprofen 200 MG tablet 200 mg PO Q6H PRN PRN (Reason: Pain) promethazine 25 mg tablet 25 mg PO Q6H PRN (Reason: nausea and vomiting) Qty: 20 0RF sumatriptan succinate 6 mg/0.5 mL pen injector 6 mg subcut X1 PRN (Reason: migraine headache) Qty: 1 0RF lorazepam 0.5 mg tablet 0.5 mg PO PRN PRN (Reason: DENTAL ) ergocalciferol (vitamin D2) 1,250 mcg (50,000 unit) capsule 1,250 mcg PO QWEEK [id number] mg capsule 1 cap PO Q4H PRN (Reason: pain) ondansetron 4 MG tablet 8 mg PO Q8H PRN PRN (Reason: Nausea) oxycodone 5 mg tablet 5 mg PO Q4H 7 Days Qty: 42 0RF aspirin 81 mg tablet,delayed release (DR/EC) 81 mg PO DAILY 30 Days Qty: 30 0RF docusate sodium [Colace] 100 mg capsule 100 mg PO DAILY 10 Days Qty: 10 0RF cyclobenzaprine 10 mg tablet 10 mg PO TID 7 Days Qty: 21 0RF calcium carbonate-vitamin D3 [Os-Mumtaz 500 + D3] 500 mg-15 mcg (600 unit) tablet 1 tab PO DAILY 90 Days Qty: 90 0RF acetaminophen [Tylenol Extra Strength] 500 mg tablet 1,000 mg PO Q6H 10 Days Qty: 80 0RF ascorbic acid (vitamin C) [Vitamin C] 1,000 mg tablet 1 g PO DAILY 90 Days Qty: 90 0RF oxycodone 5 mg tablet 5 mg PO Q4H 7 Days Qty: 42 0RF oxycodone 5 mg tablet 5 mg PO Q4H 7 Days Qty: 42 0RF cyclobenzaprine 10 mg tablet 10 mg PO TID 7 Days Qty: 21 0RF pantoprazole [Protonix] 40 mg tablet,delayed release (DR/EC) 40 mg PO BID 10 Days Qty: 20 0RF Primary Care Provider: Ginna Kowalski Referrals: Ginna Kowalski MD [Primary Care Provider] - Print Language: [place] Irish
[2025-03-31 15:49] LABS: Hematocrit 39.7 % (37-47); Hemoglobin 13.3 g/dL (12.0-15.0); Immature Granulocytes Count 0.020 X10^3/uL (0.0-0.0); Mean Corp Hgb Conc 33.5 g/dL (32-36); Mean Corpuscular Volume 93.0 fL (81-99); Mean Platelet Vol. 9.0 fl (6.2-12.0); NRBC Flagged by Analyzer 0 % (0-5); Platelet Count 333 K/mm3 (150-450); RBC Distribution Width CV 13.3 % (11.6-14.6); RBC Distribution Width SD 45.1 fl (35.1-43.9); Red Blood Count 4.27 M/mm3 (4.2-5.4); White Blood Count 7.4 K/mm3 (4.4-11.0)
[2025-03-31] MEDS: 0.9% Normal Saline (1000mL) 1,000 ML 999 ML IV (15:50)
[2025-03-31 16:23] LABS: AST(SGOT) 18 U/L (<=31); Alanine Aminotransfer ALT/SGPT 25 U/L (<=34); Albumin, Serum 4.3 g/dL (3.4-4.8); Alkaline Phosphatase 95 U/L (35-104); Anion Gap 14 (5-15); BUN 10 mg/dL (4-19); BUN/Creat Ratio 15.4 RATIO (10-20); Calcium,Total 9.4 mg/dL (7.6-11.0); Carbon Dioxide 23.0 mmol/L (21.0-32.0); Chloride 105 mmol/L (98-108); Estimated Creatinine Clearance 109.53 ml/min (50-250); Globulin 2.9 g/dL (2.2-4.2); Glucose 90 mg/dL (70-99); Potassium 3.8 mmol/L (3.3-5.1)
[2025-03-31 17:09] VITALS: BP 136/65; PULSE 66; RESP 12; TEMP 36.6; O2SAT 98
== END 2025-03-31 17:09 | disposition home or self-care (01) ==
PROVIDERS: Emergency Provider Emergency Medicine; PCP Family Medicine; Visit Provider Emergency Medicine
DX: R11.2 Nausea with vomiting, unspecified (principal); M06.9 Rheumatoid arthritis, unspecified; K21.9 Gastro-esophageal reflux disease without esophagitis; G43.909 Migraine, unspecified, not intractable, without status migrainosus; F17.210 Nicotine dependence, cigarettes, uncomplicated; Z87.19 Personal history of other diseases of the digestive system; Z90.49 Acquired absence of other specified parts of digestive tract; Z79.82 Long term (current) use of aspirin; Z98.890 Other specified postprocedural states; Z79.899 Other long term (current) drug therapy
CPT/HCPCS: 80053; 85025; 96361; 96374; 96375; 99283; A4216; J2405

== ENCOUNTER 2025-05-08 13:25 | Emergency (ER) | payer OTHER, SELFPAY ==
[2025-05-08 13:25] VITALS: BP 167/95; PULSE 89; RESP 16; TEMP 36.8; O2SAT 100
--- NOTE | 2025-05-08 14:02 | RAD_ITS ---
PROCEDURE: FOOT MIN 3 VIEWS 05/08/2025 REASON FOR EXAM: INJURY/PAIN TECHNIQUE: FOOT MIN 3 VIEWS Laterality: Left foot COMPARISON: Prior study dated FINDINGS: The patient is status post fusion at the 1st tarsometatarsal joint. Status post screw fixation of the calcaneus. Degenerative changes of the 1st metatarsophalangeal joint. Generalized osteopenia. Soft tissue swelling. RAD/Foot min 3 Views IMPRESSION: Generalized osteopenia. Status post screw fixation of the calcaneus as well as fusion at the 1st tarsom etatarsal joint. Reading Location: [facility]
--- NOTE | 2025-05-08 14:02 | VDLE_ITS ---
Reason For Study Reason For Study: LLE Pain RIGHT LEFT FV is compressible, spontaneous, phasic, competent GSV is normal. and demonstrates normal augmentation. CFV is compressible, spontaneous, phasic, competent, Procedure and demonstrates normal augmentation. This is a venous duplex using B-mode, color flow and FV is compressible, spontaneous, phasic, competent spectral Doppler. and demonstrates normal augmentation. Exam performed portable in ED. POP V is compressible, spontaneous, phasic, competent The exam was diagnostic. and demonstrates normal augmentation. A preliminary report was called and/or faxed to T/P Trunk is compressible. 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 PTV is compressible. LT PerV is compressible. VL/Venous Duplex US, Unilateral Interpretation Summary Deep veins of the left lower extremity are patent and compressible segmentally. There is no evidence of left lower extremity deep vein thrombosis. The left great saphenous vein appears patent an d compressible segmentally. Ordering Physician: Melissa Gonzales Referring Physician: Ginna Kowalski Performed By: Alvaro Urbina RVT
--- NOTE | 2025-05-08 14:05 | ED.VIS.LOWEX ---
HPI History of Present Illness Chief Complaint: Lower Extremity Injury Informant: patient Narrative Narrative: Patient 60 old female with history of tobacco use, rheumatoid arthritis and recent left foot surgery performed by Dr. Leyva on 02/21/2025 presenting with worsening heel pain. Patient states that overall she has been healing well. She states that she had been getting around well with a walking boot and crutch walking which is taking Tylenol and Motrin for the past week and a half. 2 days ago she followed up with podiatry and was told that she should stop crutch walking. She notes since that she has been having increased pain in her left heel that radiates up into her calf. She states it is a sharp stabbing sensation. States she has not had severe pain like this since immediately postop. She has been alternating ibuprofen and Tylenol (800 mg of ibuprofen with 1000 g of Tylenol) every 6 hours and continues to have severe pain. She knows she has not had any opioid medication for the past week and a half because her pain has been well-controlled/tolerable. She has not she had a small bubble that drained 2 and half weeks ago has been healing up well since. This was on the lateral aspect of her midfoot. Pain is better with rest and worse with ambulation especially whenever she heel strikes. States that overall her swelling in her leg postoperatively has improved however she has noticed a bit more swelling in her left ankle and distal calf over the past 2 to 3 days. [facility] Medical History Wears glasses Post-menopausal Rheumatoid arthritis Arthritis Back pain Migraine headache History of GI bleed Gastric reflux Smoker History of pain when walking History of edema Cardiology follow-up encounter Bradycardia Hypotension History of echocardiogram Family history of ischemic heart disease History of eating disorder History of insomnia Migraine Rheumatoid arthritis Home Medications ?Medication ?Instructions ?Recorded ?Last Taken ?Type albuterol sulfate 90 mcg/actuation 1 - 2 puff Inhalation Q4H PRN PRN 05/01/14 02/20/25 History aerosol inhaler Asthma ibuprofen 200 mg tablet 200 mg PO Q6H PRN PRN Pain 03/22/17 02/20/25 History promethazine 25 mg tablet 25 mg PO Q6H PRN nausea and 06/21/23 Unknown Rx vomiting #20 tabs sumatriptan succinate 6 mg/0.5 mL 6 mg (0.5 mL) subcut X1 PRN 06/21/23 Unknown Rx subcutaneous pen injector migraine headache #1 mL butalbital 50 mg-acetaminophen 325 1 cap PO Q4H PRN pain 02/07/25 Unknown History mg-caffeine 40 mg-codeine 30 mg cap lorazepam 0.5 mg tablet 0.5 mg PO PRN PRN DENTAL 02/07/25 Unknown History ondansetron 4 mg disintegrating 8 mg PO Q8H PRN PRN Nausea 02/07/25 02/20/25 History tablet acetaminophen 500 mg tablet 1,000 mg (2 x 500 mg) PO Q6H 10 02/21/25 Unknown Rx (Tylenol Extra Strength) days #80 tabs ascorbic acid (vitamin C) 1,000 mg 1 g PO DAILY 90 days #90 tabs 02/21/25 Unknown Rx tablet (Vitamin C) calcium 500 mg (as 1 tab PO DAILY 90 days #90 tabs 02/21/25 Unknown Rx carbonate)-vitamin D3 15 mcg (600 unit) tablet (Os-Mumtaz 500 + D3) cyclobenzaprine 10 mg tablet 10 mg PO TID muscle spasm 7 days 03/13/25 Unknown Rx #21 tabs ondansetron 4 mg disintegrating 4 mg PO Q6H PRN nausea and 03/31/25 Unknown Rx tablet vomiting #14 tabs cyclobenzaprine 10 mg tablet 10 mg PO TID muscle spasm 7 days 04/07/25 Unknown Rx #21 tabs oxycodone 5 mg tablet 5 mg PO Q8H pain 7 days #21 tabs 04/10/25 Unknown Rx oxycodone 5 mg tablet 5 mg PO DAILY pain 7 days #7 tabs 04/25/25 Unknown Rx gabapentin 100 mg capsule 100 mg PO DAILY #15 caps 05/08/25 Unknown Rx oxycodone 5 mg tablet 5 mg PO QHS PRN pain 5 days #5 tabs 05/08/25 Unknown Rx pantoprazole 40 mg tablet,delayed 40 mg PO BID PRN acid reflux 05/08/25 Unknown History release (Protonix) Allergy/AdvReac Type Severity Reaction Status Date / Time diltiazem AdvReac Intermediate Leg Verified 05/08/25 13:26 swelling gabapentin (From [facility]) AdvReac Intermediate Edema Verified 05/08/25 13:26 Family History Mother Breast cancer Grandmother Breast cancer Other Heart disease Hypertension Isela Gehrigs disease Myocardial infarction Surgical History History of dental surgery History of left heart catheterization (~06/15/18) History of lumpectomy of right breast History of section history of wrist surgery history of coccyx removal 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 History of cholecystectomy History of foot surgery History of rotator cuff surgery Hx of left knee surgery History of back surgery Social History Smoking Status: Current every day smoker tobacco type: cigarettes alcohol intake: never substance use type: does not use ROS ROS ED Constitutional Constitutional ED: Denies chills or fever(s) Cardiovascular Cardiovascular: Denies chest pain Respiratory/Chest Respiratory/Chest: Denies dyspnea Gastrointestinal Gastrointestinal: Reports nausea and other Details: Reports nausea secondary to pain Musculoskeletal Musculoskeletal: Reports other Details: Left foot pain rating up to lower leg Neurologic Neurologic: Denies paresthesias or weakness Psychiatric Psychiatric: Reports anxiety Hematologic/Lymphatic Hematologic/Lymphatic: Denies easy bleeding or easy bruising EXAM Physical Exam Const Vital Signs: 05/08/25 13:25 05/08/25 17:10 05/08/25 17:10 Temperature 98.3 F 97.9 F 97.9 F Temperature Source Oral Temporal Pulse Rate 89 73 73 Respiratory Rate 16 14 14 Blood Pressure 167/95 H 113/77 113/77 Blood Pressure Mean 119 89 89 Pulse Ox 100 99 99 Oxygen Delivery Method Room Air Room Air Positive well nourished and well developed General Appearance ED: well developed and NAD HEENT Reports moist mucous membranes Neck full ROM and supple Resp normal respiratory effort Cardio regular rate and regular rhythm Cardio Narrative: 2+ DP pulses Extremity Extremity Narrative: Mildly decreased range of motion of the foot but this is chronic since her surgery. Some mild swelling around the ankle and midfoot but no edema present. Tenderness palpation over the heel. Normal Grey test. No palpable cords in the calf. Compartments are soft. Neuro oriented x3, moves all extremities and no sensory deficits noted Sensorium / Orientation: alert Motor Exam: Negative for general weakness Psych Psych Narrative: Tearful, overwhelmed Mood & Affect: anxious Skin Skin Narrative: Healing surgical incisions with no surrounding erythema, associated fluctuance or erythema. MDM MDM MDM Narrative Medical decision making narrative: Patient evaluated for acute exacerbation of pain. She is status post major foot surgery and since walking without crutches is having severe pain from her heel up into her calf. Is not having any relief with alternating ibuprofen and Tylenol. Differential includes tendinitis, plantar fasciitis, DVT, operative infection and postoperative pain control. On exam she is not any overlying redness or skin changes consistent with an acute infection or abscess. X-ray viewed by myself as well as radiology shows postsurgical changes with no acute process. CBC, CMP, CRP all largely normal and very reassuring. Venous duplex is negative for any DVT. Patient does seem to be worse at the heel and at the insertion of the plantar fascia. I did attempt to speak to her surgeon, Dr. Leyva however he is currently out of state. I spoke with his partner, Dr. Aguero, who felt that likely this is more associated with overuse and was reassured by her workup in the ER today. Was agreeable with trialing gabapentin in case this is more nerve related. Question of this could actually be a plantar fasciitis or tendinitis given that she is not used her foot and a decreased range of motion for months prior to starting to walk. Counseled on rest and going back to crutch walking for further pain control. Patient is agreeable with this plan of care. Is given IV morphine and then oxycodone for pain control emergency room. Is also given IV Toradol. Does have improvement while in the emergency room. Given close return precautions. Lab Data Attestation: I reviewed the patient's lab results. Labs: Laboratory Results - last 24 hr 05/08/25 14:06 WBC 8.9 RBC 4.49 Hgb 14.4 Hct 42.7 MCV 95.1 MCH 32.1 H MCHC 33.7 RDW Std Deviation 45.6 H RDW Coeff of Sebastien 13.0 Plt Count 401 MPV 9.0 Immature Gran % (Auto) 0.300 Neut % (Auto) 62.8 Lymph % (Auto) 29.9 [place] % (Auto) 5.4 Eos % (Auto) 0.8 Baso % (Auto) 0.8 Absolute Neuts (auto) 5.6 Absolute Lymphs (auto) 2.65 Nucleated RBC % 0 ESR 21 Sodium 140 Potassium 3.9 Chloride 104 Carbon Dioxide 22.7 Anion Gap 14 BUN 7 Creatinine 0.69 L Est GFR (MDRD) Non-Af 99 BUN/Creatinine Ratio 10.5 Glucose 96 Calcium 9.5 Total Bilirubin 0.22 AST 19 ALT 20 Alkaline Phosphatase 103 C-React Prot Ext Range < 3.00 Total Protein 7.7 Albumin 4.3 Globulin 3.3 Albumin/Globulin Ratio 1.3 Radiography Diagnostic Testing: Clinical Impression(s) from Imaging Studies Foot X-Ray 05/08/25 14:02 IMPRESSION: Generalized osteopenia. Status post screw fixation of the calcaneus as well as fusion at the 1st tarsometatarsal joint. Reading Location: [facility] Management Discussion w/another healthcare provider: Sexual Health Physician Discharge Plan Triage Chief Complaint: Lower Extremity Injury ED Provider: Melissa Gonzales Dx/Rx/DC Orders Clinical Impression: Pain of left heel, Other acute postprocedural pain Instructions: ED Wound Care After Surgery- Pain Prescriptions: New oxycodone 5 mg tablet 5 mg PO QHS PRN (Reason: pain) 5 Days Qty: 5 0RF gabapentin 100 mg capsule 100 mg PO DAILY Qty: 15 0RF Rx Instructions: Take 1 pill daily for 3 days and then increase to twice a day for 3 days and ultimately can increase to 3 times a day as needed for pain. No Action albuterol sulfate 1 INHALER inhaler 1 - 2 puff Inhalation Q4H PRN PRN (Reason: Asthma) ibuprofen 200 MG tablet 200 mg PO Q6H PRN PRN (Reason: Pain) promethazine 25 mg tablet 25 mg PO Q6H PRN (Reason: nausea and vomiting) Qty: 20 0RF sumatriptan succinate 6 mg/0.5 mL pen injector 6 mg subcut X1 PRN (Reason: migraine headache) Qty: 1 0RF lorazepam 0.5 mg tablet 0.5 mg PO PRN PRN (Reason: DENTAL ) [id number] mg capsule 1 cap PO Q4H PRN (Reason: pain) ondansetron 4 MG tablet 8 mg PO Q8H PRN PRN (Reason: Nausea) calcium carbonate-vitamin D3 [Os-Mumtaz 500 + D3] 500 mg-15 mcg (600 unit) tablet 1 tab PO DAILY 90 Days Qty: 90 0RF acetaminophen [Tylenol Extra Strength] 500 mg tablet 1,000 mg PO Q6H 10 Days Qty: 80 0RF ascorbic acid (vitamin C) [Vitamin C] 1,000 mg tablet 1 g PO DAILY 90 Days Qty: 90 0RF cyclobenzaprine 10 mg tablet 10 mg PO TID 7 Days Qty: 21 0RF cyclobenzaprine 10 mg tablet 10 mg PO TID 7 Days Qty: 21 0RF oxycodone 5 mg tablet 5 mg PO Q8H 7 Days Qty: 21 0RF oxycodone 5 mg tablet 5 mg PO DAILY 7 Days Qty: 7 0RF pantoprazole [Protonix] 40 mg tablet,delayed release (DR/EC) 40 mg PO BID PRN (Reason: acid reflux) ondansetron 4 mg tablet,disintegrating 4 mg PO Q6H PRN (Reason: nausea and vomiting) Qty: 14 1RF Primary Care Provider: Ginna Kowalski Referrals: Ginna Kowalski MD [Primary Care Provider] - Jam Aguero DPM [Med Staff - Active Staff] - Activity Restrictions/Additional Instructions: Please follow-up with Dr. Aguero's office tomorrow for recheck. If you have any issues feel free to call have his personal phone number [phone]. Your workup today was very reassuring with no signs of acute fracture, movement of the hardware or infection in the joint. No signs of a DVT. Rest and elevate the foot for the next few days and go back to using crutches. It might take a couple days of crutch walking or limited weightbearing for discharge and feel better to then advance your walking again. Print Language: Tajik Disposition Disposition: Home, Self Care Discharge Date/Time: 05/08/25 17:22
[2025-05-08 14:50] LABS: Hematocrit 42.7 % (37-47); Hemoglobin 14.4 g/dL (12.0-15.0); Immature Granulocytes Count 0.030 X10^3/uL (0.0-0.0); Mean Corp Hgb Conc 33.7 g/dL (32-36); Mean Corpuscular Volume 95.1 fL (81-99); Mean Platelet Vol. 9.0 fl (6.2-12.0); NRBC Flagged by Analyzer 0 % (0-5); Platelet Count 401 K/mm3 (150-450); RBC Distribution Width CV 13.0 % (11.6-14.6); RBC Distribution Width SD 45.6 fl (35.1-43.9); Red Blood Count 4.49 M/mm3 (4.2-5.4); White Blood Count 8.9 K/mm3 (4.4-11.0)
[2025-05-08 14:58] LABS: AST(SGOT) 19 U/L (<=31); Alanine Aminotransfer ALT/SGPT 20 U/L (<=34); Albumin, Serum 4.3 g/dL (3.4-4.8); Alkaline Phosphatase 103 U/L (35-104); Anion Gap 14 (5-15); BUN 7 mg/dL (4-19); BUN/Creat Ratio 10.5 RATIO (10-20); Calcium,Total 9.5 mg/dL (7.6-11.0); Carbon Dioxide 22.7 mmol/L (21.0-32.0); Chloride 104 mmol/L (98-108); Globulin 3.3 g/dL (2.2-4.2); Glucose 96 mg/dL (70-99); Potassium 3.9 mmol/L (3.3-5.1)
[2025-05-08 15:03] LABS: CRP < 3.00 mg/L (0.0-3.0)
[2025-05-08 17:10] VITALS: BP 113/77; PULSE 73; RESP 14; TEMP 36.6; O2SAT 99; BMI 25.8
--- OUTSIDE RECORDS SUMMARY | 2025-05-08 19:43 | XMS RPT_ITS | CCD ---
Author Organization [facility] Care Team Providers Care Analytics Architect Name Role Phone Marysol Juarez Unavailable Milli [...] Care Provider Dr. Leidy Crawford Referring Provider YOGESH Garza Attending Provider Dex VAZQUEZ, Dr. Chacko Primary Care Provider Gordon ABRAMS, Dr. Jean Baptiste Attending Provider Gordon DPJudy, Dr. Jean Baptiste Referring Provider Dex VAZQUEZ, Dr. Chacko Attending Provider [phone] Dex VAZQUEZ, Dr. Chacko Referring Provider [phone] Marian VAZQUEZ, Dr. Humphrey Attending Provider [phone] Nola VAZQUEZ, Dr. Hughes Attending Provider Nola VAZQUEZ, Dr. Hughes Referring Provider James CIVIL SERVICE WORKER-C, Emmie Attending Provider Janes VAZQUEZ, Dr. Albarado Emergency Provider James CIVIL SERVICE WORKER, Emmie Attending Unavailable Miedel, Ginna Primary Care Unavailable Kam Fonseca Attending Unavailable Miedel, Ginna Primary Care Unavailable Miedel, Ginna Primary Care Unavailable Miedel, Ginna Attending Unavailable Malys, Leidy Primary Care Unavailable Assessment, Health Risk Attending Unavaila ble Assessment, Health Risk Referring Unavaila ble Miedel, Ginna Referring Unavailable Miedel, Ginna Primary Care Unavailable Ceceliael, Ginna Attending Unavailable Ednaedel, Ginna Attending Unavailable Miedel, Ginna Referring Unavailable Miedel, Ginna Primary Care Unavailable Kanchergiuseppe Saul Referring Unavailable Miedel, Ginna Primary Care Unavailable KancherMirian chinnd Attending Unavailable Miedel, Ginna Primary Care Unavailable Markel Leyva Attending Unavailable Miedel, Ginna Primary Care Unavailable Markel Leyva Attending Unavailable Markel Leyva Referring Unavailable Per Marrero Attending Unavailable Miedel, Ginna Primary Care Unavailable Allergies Allergy Classification Reported Allergen(s) Allergy Type Date of Onset Reaction(s) Facility (20 sources) acetaminophen / oxyCODONE drug allergy 4 [facility] Work Phone: (20 sources) QUEtiapine drug allergy 6 throat and facial swelling [facility] Work Phone: (2 sources) Acetaminophen / HYDROcodone; Translations: [HYDROCODONE-ACET AMINOPHEN] Drug Allergy 2 [facility] Repository (2 sources) Acetaminophen / oxyCODONE; Translations: [OXYCODONE-ACETAM INOPHEN] Drug Allergy 8 [facility] Repository (11 sources) dilTIAZem Drug Allergy 0 Leg swelling [facility] (11 sources) gabapentin Drug Allergy 0 Edema [facility] (6 sources) oxyCODONE; Translations: [oxycodone HCl] Drug Allergy 0 Anaphylaxis [facility] (1 source) dilTIAZem Drug Allergy 5 [facility] Repository (1 source) gabapentin Drug Allergy 5 [facility] Repository Medications Current Medications Medication Drug Class(es) Dates Sig (Normalized) Sig (Original) acetaminophen 500 mg oral tablet (2 sources) Start: 02-21-2025 take 2 tablets by mouth every six hours Acetaminophen (Tylenol Extra Strength) 500 mg tablet Active 1000 mg PO EVERY 6 HOURS 80 10 0 February 21, 2025 12:00am acetaminophen 325 mg / butalbital 50 mg / caffeine 40 mg / codeine phosphate 30 mg oral capsule (20 sources) Opioid Agonist, Barbiturate, Central Nervous System Stimulant, Methylxanthine Start: 02-07-2025 Butalbital-Acetami nop-Caf-Cod [id number] mg capsule Active 1 NMA PO Q4H as needed for pain February 07, 2025 12:00am Start: 01-13-2016 FIORICET/CODEI NE [id number] MG CAPS 1 tablet by mouth as needed for migraines ESEIYAAEDA-XOQH-WCBQ-COD [id number] [facility] Jadyn ZUÑIGA-C Start: 01-13-2016 FIORICET/CODEI NE [id number] MG CAPS 1 tablet by mouth as needed for migraines PCKGNROSVG-XTCG-IHHV-COD [id number] [facility] PA-C ascorbic acid 1000 mg oral tablet (2 sources) Vitamin C Start: 02-21-2025 take 1 g by mouth once daily Ascorbic Acid (Vitamin C) (Vitamin C) 1,000 mg tablet Active 1 g PO DAILY 90 90 0 February 21, 2025 12:00am aspirin 81 mg delayed release oral tablet (13 sources) Platelet Aggregation Inhibitor, Nonsteroidal Anti-inflammatory Drug Start: 02-21-2025 take 1 tablet by mouth once daily Aspirin 81 mg tablet,delayed release (DR/EC) Active 81 mg PO DAILY 30 30 0 February 21, 2025 12:00am Start: 06-14-2018 End: 02-07-2025 take 1 tablet by mouth once daily Aspirin 81 MG tablet,chewable Discontinued 81 mg PO DAILY@0800 30 0 June 14, 2018 12:00am February 07, 2025 9:17am calcium carbonate 1250 mg / cholecalciferol 600 unt oral tablet (2 sources) Vitamin D Start: 02-21-2025 Calcium Carbonate-Vitamin D3 (Os-Mumtaz 500 + D3) 500 mg-15 mcg (600 unit) tablet Active 1 {tbl} PO DAILY 90 90 0 February 21, 2025 12:00am cyclobenzaprine hydrochloride 10 mg oral tablet (3 sources) Muscle Relaxant Start: 02-21-2025 take 1 tablet by mouth three times daily Cyclobenzaprine 10 mg tablet Active 10 mg PO THREE TIMES A DAY 21 7 0 March 13, 2025 12:00am muscle spasm docusate sodium 100 mg oral capsule (2 sources) Start: 02-21-2025 take 1 capsule by mouth once daily Docusate Sodium (Colace) 100 mg capsule Active 100 mg PO DAILY 10 10 0 February 21, 2025 12:00am ergocalciferol 1.25 mg oral capsule (3 sources) Provitamin D2 Compound Start: 02-07-2025 Ergocalciferol (Vitamin D2) 1,250 mcg (50,000 unit) capsule Active 1250 ug PO EVERY WEEK February 07, 2025 12:00am ibuprofen 200 mg oral tablet (11 sources) Nonsteroidal Anti-inflammatory Drug Start: 03-22-2017 take 1 tablet by mouth every six hours as needed for pain Ibuprofen 200 MG tablet Active 200 mg PO EVERY 6 HOURS NEEDED as needed for Pain March 22, 2017 12:00am LORazepam 0.5 mg oral tablet (3 sources) Benzodiazepine Start: 02-07-2025 Lorazepam 0.5 mg tablet Active 0.5 mg PO NEEDED as needed for DENTAL February 07, 2025 12:00am ondansetron 4 mg disintegrating oral tablet (15 sources) Serotonin-3 Receptor Antagonist Start: 03-31-2025 take 1 tablet by mouth every six hours as needed for nausea and vomiting Ondansetron 4 mg tablet,disintegrating Active 4 mg PO EVERY 6 HOURS as needed for nausea and vomiting 14 March 31, 2025 12:00am Start: 02-07-2025 take 2 tablets by mo uth every eight hours as needed for nausea Ondansetron 4 MG tablet Active 8 mg PO EVERY 8 HOURS NEEDED as needed for Nausea February 07, 2025 12:00am Start: 06-14-2018 End: 02-07-2025 take 1 tablet by mouth every eight hours as needed for nausea Ondansetron 4 MG tablet Discontinued 4 mg PO EVERY 8 HOURS NEEDED as needed for Nausea June 14, 2018 12:00am February 07, 2025 9:18am oxyCODONE hydrochloride 5 mg oral tablet (4 sources) Opioid Agonist Start: 02-21-2025 take 1 tablet by mouth every four hours Oxycodone 5 mg tablet Active 5 mg PO Q4H 42 7 0 March 09, 2025 Other acute postprocedural pain Other acute postprocedural pain pain pantoprazole 40 mg delayed release oral tablet (20 sources) Proton Pump Inhibitor Start: 03-15-2025 take 1 tablet by mouth twice daily Pantoprazole (Protonix) 40 mg tablet,delayed release (DR/EC) Active 40 mg PO TWICE A DAY 20 10 0 March 15, 2025 12:00am Start: 01-13-2016 take 1 tablet by pipo th once daily PROTONIX 40 MG PACK 1 tablet by mouth daily PANTOPRAZOLE SODIUM [id number] Ana Laura Salamanca PA-C Start: 01-13-2016 take 1 tablet by pipo th once daily PROTONIX 40 MG PACK 1 tablet by mouth daily PANTOPRAZOLE SODIUM [id number] Ana Laura Salamanca PA-C Start: 05-01-2014 End: 01-13-2016 PROTONIX 20 MG TBEC twice da manpreet PANTOPRAZOLE SODIUM [id number] Marysol Juarez promethazine hydrochloride 25 mg oral tablet (10 sources) Phenothiazine Start: 06-21-2023 take 1 tablet by mouth every six hours as needed for nausea and vomiting Promethazine 25 mg tablet Active 25 mg PO EVERY 6 HOURS as needed for nausea and vomiting 20 June 21, 2023 12:00am 0.5 ml SUMAtriptan 12 mg/ml auto-injector (20 sources) Serotonin-1b and Serotonin-1d Receptor Agonist Start: 06-21-2023 Sumatriptan Succinate 6 mg/0.5 mL pen injector Active 6 mg SC ONE TIME as needed for migraine headache 1 June 21, 2023 7:36pm Start: 01-13-2016 IMITREX 6 MG/0 .5ML SOLN 1 injection as needed for migraines SUMATRIPTAN SUCCINATE [id number] Ana Laura Salamanca PA-C Start: 01-13-2016 IMITREX 6 MG/0 .5ML SOLN 1 injection as needed for migraines SUMATRIPTAN SUCCINATE [id number] Ana Laura Salamanca PA-C Completed/Discontinued Medications Medication Drug Class(es) Dates Sig (Normalized) Sig (Original) acetaminophen 325 mg / HYDROcodone bitartrate 5 mg oral tablet (9 sources) Opioid Agonist Start: 12-14-2023 End: 02-21-2025 Hydrocodone-Acetami nophen 5-325 mg tablet Discontinued 1 {tbl} PO EVERY 6 HOURS NEEDED as needed for Pain 10 3 December 14, 2023 February 21, 2025 6:26am Dental abscess Periapical abscess without sinus Start: 12-14-2023 take 1 tablet by pipo th every six hours as needed Hydrocodone-Acetaminophen Active 1 TABLE T PO EVERY 6 HOURS NEEDED 10 3 December 14, 2023 200 actuat albuterol 0.09 mg/actuat metered dose inhaler (20 sources) beta2-Adrenergic Agonist Start: 01-13-2016 PROAI R HFA 108 (90 Base) MCG/ACT AERS 2 puffs twice daily ALBUTEROL SULFATE [id number] Aan Laura Salamanca PA-C Start: 01-13-2016 PROAIR HFA 108 (90 Base) MCG/ACT AERS 2 puffs twice daily ALBUTEROL SULFATE [id number] Ana Laura Salamanca PA-C Start: 05-01-2014 Albuterol Sulf ate 1 INHALER inhaler Active 1 - 2 NMA Inhalation EVERY 4 HOURS NEEDED as needed for Asthma May 01, 2014 12:00am Start: 05-01-2014 Albuterol Sulf ate 1 INHALER inhaler Active 1 - 2 NMA Inhalation EVERY 4 HOURS NEEDED as needed for Asthma May 01, 2014 12:00am Start: 05-01-2014 take 1 puff(s) by in halation every four hours as needed Albuterol Sulfate Active 1 - 2 PUFF Inhalation EVERY 4 HOURS NEEDED May 01, 2014 12:00am amoxicillin 875 mg / clavulanate 125 mg oral tablet (8 sources) Penicillin-class Antibacterial Start: 12-16-2023 End: 02-07-2025 take 1 tablet by mouth every twelve hours Amoxicillin-Pot Clavulanate 875-125 mg tablet Discontinued 875 mg PO Q12H 20 December 16, 2023 12:00am February 07, 2025 9:15am atorvastatin 20 mg oral tablet (11 sources) HMG-CoA Reductase Inhibitor Start: 06-15-2018 End: 02-07-2025 take 1 tablet by mouth once daily Atorvastatin 20 mg tablet Discontinued 20 mg PO DAILY 10 08June 15, 2018 12:00am February 07, 2025 9:17am BUDESONIDE-FORMOTE ROL FUMARATE AERO (20 sources) Corticosteroid, beta2-Adrenergic Agonist Start: 05-01-2014 SYMBICORT AERO 1 puff twice daily BUDESONIDE-FORMOTERO L FUMARATE AERO [id number] Marysol Juarez Start: 05-01-2014 End: 01-13-2016 SYMBICORT AERO 1 puff twice daily BUDESONIDE-FORMOTEROL FUMARATE AERO [id number] Ana Laura Salamanca PA-C Start: 05-01-2014 SYMBICORT AERO 1 puff twice daily BUDESONIDE-FORMOTEROL FUMARATE AERO [id number] Marysol Juarez Start: 05-01-2014 End: 01-13-2016 SYMBICORT AERO 1 puff twice daily BUDESONIDE-FORMOTEROL FUMARATE AERO [id number] Ana Laura Salamanca PA-C celecoxib 200 mg oral capsule (20 sources) Nonsteroidal Anti-inflammatory Drug Start: 05-01-2014 End: 01-13-2016 take 1 capsule by mouth once daily CELEBREX 200 MG CAPS 1 capsule by mouth daily CELECOXIB [id number] Ana Laura Salamanca PA-C citalopram 10 mg oral tablet (20 sources) Serotonin Reuptake Inhibitor Start: 05-01-2014 End: 01-13-2016 CELEXA 10 MG TABS daily CITALOPRAM HYDROBROMIDE [id number] Ana Laura Salamanca PA-C clindamycin 150 mg oral capsule (9 sources) Lincosamide Antibacterial Start: 12-14-2023 End: 12-16-2023 [...] 2023 12:01pm clopidogrel 75 mg oral tablet (11 sources) P2Y12 Platelet Inhibitor Start: 06-14-2018 End: 06-15-2018 take 1 tablet by mouth once daily Clopidogrel 75 MG tablet Discontinued 75 mg PO DAILY June 14, 2018 12:00am June 15, 2018 4:58pm digoxin 0.25 mg oral tablet (11 sources) Cardiac Glycoside Start: 07-19-2018 End: 02-07-2025 take 0.25 mg by mouth once daily Digoxin 250 mcg tablet Discontinued 0.25 mg PO DAILY 10 08July 19, 2018 1:00am February 07, 2025 9:17am Start: 07-19-2018 take 0.25 mg by mouth once nanda ly Digoxin Active 0.25 MG PO DAILY July 19, 2018 1:00am 24 hr dilTIAZem hydrochloride 120 mg extended release oral capsule (11 sources) Calcium Channel Camron Start: 07-05-2018 End: 07-19-2018 take 1 capsule by mouth once daily Diltiazem Hcl 120 MG capsule Discontinued 120 mg PO DAILY 14 July 05, 2018 12:00am July 19, 2018 1:57pm gabapentin enacarbil 600 mg extended release oral tablet (20 sources) Anti-epileptic Agent Start: 01-13-2016 take 1 tablet by mouth once daily HORIZANT 600 MG CR-TABS 1 tablet by mouth daily GABAPENTIN ENACARBIL [id number] Ana Laura ZUÑIGA-C Start: 01-13-2016 take 1 tablet by pipo once daily HORIZANT 600 MG CR-TABS 1 tablet by mouth daily GABAPENTIN ENACARBIL [id number] Ana Laura ZUÑIGA-C hydroCHLOROthiazide 25 mg oral tablet (20 sources) Thiazide Diuretic Start: 03-22-2017 End: 02-07-2025 Hydrochlorothiazide 25 mg tablet Discontinued 12.5 mg PO NEEDED as needed for swelling June 15, 2018 9:32am February 07, 2025 9:15am 12.5 mg PO daily for edema; Start: 03-22-2017 End: 06-15-2018 take 12.5 mg by mouth once daily as needed for edema Hydrochlorothiazide Active 12.5 MG PO NEEDED June 15, 2018 9:32am 12.5 mg PO daily for edema; magnesium oxide 500 mg oral tablet (20 sources) Start: 01-13-2016 MAGNESIUM OXID E 500 MG TABS 1 tablet by mouth MAGNESIUM OXIDE [id number] Ana Laura ZUÑIGA-C meloxicam 15 mg oral tablet (11 sources) Nonsteroidal Anti-inflammatory Drug Start: 06-14-2018 End: 02-07-2025 Meloxicam 15 MG tablet Discontinued 13 mg PO DAILY June 14, 2018 12:00am February 07, 2025 9:17am Start: 06-14-2018 take 13 mg by mouth once daily Meloxicam Active 13 MG PO DAILY June 14, 2018 12:00am MULTIPLE VITAMINS-MINERALS (15 sources) Start: 01-13-2016 take 1 tablet by mouth once daily ONE DAILY MULTIVITAMIN WOMEN TABS 1 tablet by mouth daily MULTIPLE VITAMINS-MINERALS [id number] Ana Laura Salamanca PA-C MULTIPLE VITAMINS-MINERALS (15 sources) Start: 01-13-2016 take 1 tablet by mouth once daily ONE DAILY MULTIVITAMIN WOMEN TABS 1 tablet by mouth daily MULTIPLE VITAMINS-MINERALS [id number] Ana Laura ZUÑIGA-C Start: 01-13-2016 take 1 tablet by pipo once daily ONE DAILY MULTIVITAMIN WOMEN TABS 1 tablet by mouth daily MULTIPLE VITAMINS-MINERALS [id number] Ana Laura [place] YOGESH-C potassium chloride 10 meq extended release oral tablet (20 sources) Start: 07-19-2018 End: 02-07-2025 take 1 tablet by mouth once daily Potassium Chloride 10 mEq tablet extended release Discontinued 10 meq PO DAILY 10 08July 19, 2018 1:00am February 07, 2025 9:17am Start: 01-13-2016 POTASSIUM CHLO RIDE ER 10 MEQ CR-TABS 1 tablet by mouth as need for muscle cramps POTASSIUM CHLORIDE [id number] Ana Laura [place] PA-C predniSONE 20 mg oral tablet (20 sources) Corticosteroid Start: 01-13-2016 PREDNISONE 20 MG TABS 1 tablet by mouth as needed for arthritis pain PREDNISONE [id number] Ana Laura [place] PA-C 24 hr propranolol hydrochloride 80 mg extended release oral capsule (11 sources) beta-Adrenergic Camron Start: 06-15-2018 End: 02-07-2025 take 1 capsule by mouth once daily Propranolol (Inderal La) 80 mg capsule,extended release 24 hr Discontinued 80 mg PO DAILY 10 08June 15, 2018 12:00am February 07, 2025 9:16am rOPINIRole 1 mg oral tablet (20 sources) Nonergot Dopamine Agonist Start: 05-01-2014 End: 01-13-2016 REQUIP 1 MG TABS every night ROPINIROLE HCL [id number] Marysol Juarez 24 hr rotigotine 0.125 mg/hr transdermal system (20 sources) Start: 01-13-2016 NEUPRO 3 MG/24HR PT24 1 patch every 24 hours ROTIGOTINE [id number] Ana Laura [place] PA-C Start: 01-13-2016 NEUPRO 3 MG/24 HR PT24 1 patch every 24 hours ROTIGOTINE [id number] Ana Laura [place] YOGESH-C B COMPLEX VITAMINS (20 sources) Start: 01-13-2016 take 1 tablet by mouth once daily VITAMIN B COMPLEX TABS 1 tablet by mouth daily B COMPLEX VITAMINS [id number] Ana Laura Salamanca PA-C Start: 01-13-2016 take 1 tablet by pipo once daily VITAMIN B COMPLEX TABS 1 tablet by mouth daily B COMPLEX VITAMINS [id number] Ana Laura Salamanca PA-C Problems Active Problems Problem Classification Problem Date Documented Da te Episodic/Chronic Acquired foot deformities (4 sources) Talipes cavus; Translations: [Congenital pes cavus, left foot] 02-21-2025 Episodic Disorders of lipid metabolism (11 sources) Hyperlipidemia; Translations: [Hyperlipidemia, unspecified] 06-15-2018 Chronic Disorders of teeth and jaw (20 sources) Dental abscess; Translations: [Periapical abscess without sinus] 12-14-2023 Episodic Gastritis and duodenitis (1 source) Gastritis; Translations: [Gastritis, unspecified, without bleeding] 03-31-2025 Episodic Gastrointestinal hemorrhage (1 source) Gastrointestinal hemorrhage; Translations: [Gastrointestinal hemorrhage, unspecified] 03-31-2025 Episodic Headache; including migraine (20 sources) Migraine; Translations: [Migraine, unspecified, not intractable, without status migrainosus] 06-15-2018 Chronic Immunizations and screening for infectious disease (11 sources) Patient encounter status; Translations: [Encounter for screening for COVID-19] 04-21-2022 Episodic Intestinal infection (10 sources) Viral gastroenteritis; Translations: [Viral intestinal infection, unspecified] 06-21-2023 Episodic Joint disorders and dislocations; trauma-related (20 sources) Derangement of knee; Translations: [Unspecified internal derangement of left knee] Onset: 7 01-17-2017 Chronic Nausea and vomiting (2 sources) Nausea; Translations: [Nausea] Onset: 5 03-31-2025 Episodic Nonspecific chest pain (11 sources) Chest pain; Translations: [Chest pain, unspecified] 06-15-2018 Episodic Open wounds of extremities (6 sources) Needle stick injury of finger 02-29-2020 Episodic Osteoarthritis (13 sources) Osteoarthritis of knee; Translations: [Osteoarthritis of joint of left ankle and/or foot] Onset: 7 06-13-2017 Chronic Other congenital anomalies (4 sources) Congenital deformity of foot; Translations: [Other specified congenital deformities of feet] 02-21-2025 Chronic Other connective tissue disease (4 sources) Foot pain; Translations: [Pain in left foot] 02-21-2025 Episodic Other connective tissue disease (1 source) Pain in left foot; Translations: [Pain in left foot] Onset: 5 Episodic Other nervous system disorders (2 sources) Acute postoperative pain; Translations: [Other acute postprocedural pain] 02-21-2025 Episodic Other non-traumatic joint disorders (14 sources) Arthropathy; Translations: [Other specified acquired deformities of musculoskeletal system] Onset: 7 04-14-2017 Chronic Residual codes; unclassified (11 sources) H/O: Disorder; Translations: [Personal history of other specified conditions] 02-29-2020 Episodic Residual codes; unclassified (11 sources) Family history of ischemic heart disease; Translations: [Family history of ischemic heart disease and other diseases of the circulatory system] 06-15-2018 Episodic Rheumatoid arthritis and related disease (20 sources) Rheumatoid arthritis - hand joint; Translations: [Rheumatoid arthritis] Onset: 6 01-13-2016 Chronic Screening and history of mental health and substance abuse codes (11 sources) History of eating disorder; Translations: [Personal history of other mental and behavioral disorders] 02-29-2020 Episodic Spondylosis; intervertebral disc disorders; other back problems (1 source) Intervertebral disc disorders with radiculopathy, lumbar region; Translations: [Intervertebral disc disorder with radiculopathy of lumbar region] Onset: 9 Episodic Substance-related disorders (11 sources) Tobacco dependence syndrome; Translations: [Nicotine dependence, unspecified, uncomplicated] 06-15-2018 Chronic Unclassified (12 sources) Postoperative physical examination; Translations: [Encounter for other specified surgical aftercare] Onset: 7 04-13-2017 Unclassified (2 sources) Intervertebral disc disorder with radiculopathy of lumbar region Onset: 9 Unclassified (5 sources) Needle stick injury of finger; Translations: [Needlestick injury of finger of left hand] 02-29-2020 Past or Other Problems Problem Classification Problem Date Documented Date Episodic/Chronic Heart valve disorders (1 source) Cardiac murmur, unspecified; Translations: [Cardiac murmur, unspecified] Onset: 12-26-2024 Episodic Joint disorders and dislocations; trauma-related (19 sources) [...] unspecified hip] Onset: 05-01-2014 05-02-2014 Episodic Other non-traumatic joint disorders (20 sources) Knee pain; Translations: [Hip pain] Onset: 05-01-2014 01-16-2017 Episodic Other non-traumatic joint disorders (9 sources) Hip pain; Translations: [Pain in unspecified hip] Onset: 05-01-2014 05-02-2014 Episodic Other nutritional; endocrine; and metabolic disorders (20 sources) Abnormal weight gain; Translations: [Abnormal weight gain] Onset: 01-13-2016 01-14-2016 Episodic Residual codes; unclassified (11 sources) History of cardiac catheterization; Translations: [Other specified postprocedural states] Onset: 06-11-2018 06-15-2018 Episodic Comment on above: Per Dr. 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 Results Test Name Value Interpretation Reference Range Facility Absolute lymphocyte countOrd ered By: Per Marrero on 03-31-2025 Lymphocytes Auto (Unsp spec) [#/Vol] 2.62 10*3/uL 0.83-4.51 [facility] Absolute neutrophil countOrd ered By: Per Marrero on 03-31-2025 Neutrophils (Bld) [#/Vol] 4.1 10*3/uL 2.0-7.7 [facility] Anion gap in Serum or Plasma Ordered By: Per Marrero on 03-31-2025 Anion gap [Moles/Vol] 14 mmol/L 5- [facility] Automated lymphocyte count a s percentage of total leukocytesOrdered By: Per Marrero on 03-31-2025 Lymphocytes/100 WBC Auto (Unsp spec) 35.6 % - [facility] BUN/creatinine ratioOrdered By: Per Marrero on 03-31-2025 Urea nitrogen/Creatinine [Mass ratio] 15.4 mg/mg 10- [facility] Basophil percentageOrdered B y: Per Marrero on 03-31-2025 Basophils/100 WBC (Bld) 0.8 % 0-1 [facility] Bilirubin, totalOrdered By: Per Marrero on 03-31-2025 Bilirubin [Mass/Vol] 0.21 mg/dL 0.00-1.30 [facility] CBC W/Diff, Automatedon 03-12 Absolute Lymph 2.62 X10 3/uL Normal 0.83-4.51 [facility] Comment on above: Performed By: #### L [id number], [id number] #### [facility] [address] [place], [address] Absolute Neut 4.1 X10 3/uL Normal 2.0-7.7 [facility] Comment on above: Performed By: #### L [id number], [id number] #### [facility] [address] [place], [address] Basophils/100 WBC (Bld) 0.8 % Normal 0-1 [facility] Comment on above: Performed By: #### L [id number], [id number] #### [facility] [address] [place], [address] Eosinophils/100 WBC (Bld) 1.1 % Normal 0-5 [facility] Comment on above: Performed By: #### L [id number], [id number] #### [facility] [address] [place], [address] Erythrocyte distribution width (RBC) [Ratio] 13.3 % Normal 11.6-14.6 [facility] Comment on above: Performed By: #### L [id number], [id number] #### [facility] [address] [place], [address] Hematocrit (Bld) [Volume fraction] 39.7 % Normal 37-47 [facility] Comment on above: Performed By: #### L [id number], [id number] #### [facility] [address] [place], [address] Hemoglobin (Bld) [Mass/Vol] 13.3 g/dL Normal 12.0-15.0 [facility] Comment on above: Performed By: #### L [id number], [id number] #### [facility] [address] [place], [place], [address] IG% 0.300 Normal 0.0-0.9 [facility] Comment on above: Result Comment: IG% - Immature Granulocytes (promyelocytes, myelocytes and metamyelocytes) > 1% indicates that a LEFT SHIFT is Present. Performed By: #### L 500.4050, L100.0100 #### [facility] [address] [place], [address] Lymphocytes/100 WBC (Bld) 35.6 % Normal 19-41 [facility] Comment on above: Performed By: #### L 500.4050, L100.0100 #### [facility] [address] [place], [address] MCH (RBC) [Entitic mass] 31.1 pg Normal 27.0-32.0 [facility] Comment on above: Performed By: #### L 500.4050, L100.0100 #### [facility] [address] [place], [address] MCHC (RBC) [Mass/Vol] 33.5 g/dL Normal 32-36 [facility] Comment on above: Performed By: #### L 500.4050, L100.0100 #### [facility] [address] [place], [address] MCV (RBC) [Entitic vol] 93.0 fL Normal 81-99 [facility] Comment on above: Performed By: #### L 500.4050, L100.0100 #### [facility] [address] [place] [place], [address] Monocytes/100 WBC (Bld) 6.9 % Normal 0-10 [facility] Comment on above: Performed By: #### L 500.4050, L100.0100 #### [facility] [address] [place], [address] Neutrophils/100 WBC (Bld) 55.3 % Normal 47-70 [facility] Comment on above: Performed By: #### L 500.4050, L100.0100 #### [facility] [address] [place], [address] Nucleated RBC (Bld) [#/Vol] 0 10*3/uL Normal 0-5 [facility] Comment on above: Performed By: #### L 500.4050, L100.0100 #### [facility] [address] [place], [address] Platelet mean volume (Bld) [Entitic vol] 9.0 fL Normal 6.2-12.0 [facility] Comment on above: Performed By: #### L 500.4050, L100.0100 #### [facility] [address] [place], [address] Platelets (Bld) [#/Vol] 333 10*3/uL Normal 150-450 [facility] Comment on above: Performed By: #### L 500.4050, L100.0100 #### [facility] [address] [place], [address] RBC (Bld) [#/Vol] 4.27 10*6/uL Normal 4.2-5.4 [facility] Comment on above: Performed By: #### L 500.4050, L100.0100 #### [facility] [address] [place], [address] RDW SD 45.1 fl High 35.1-43.9 [facility] Comment on above: Performed By: #### L 500.4050, L100.0100 #### [facility] [address] [place], [address] WBC (Bld) [#/Vol] 7.4 10*3/uL Normal 4.4-11.0 [facility] Comment on above: Performed By: #### L 500.4050, L100.0100 #### [facility] [address] [place], [address] Carbon dioxide, total [Moles /volume] in Central venous bloodOrdered By: Per aMrrero on 03-31-2025 CO2 [Moles/Vol] 23.0 mmol/L 21.0-32.0 [facility] Chloride assayOrdered By: Ray Marrero on 03-31-2025 Chloride [Moles/Vol] 105 mmol/L 98-108 [facility] Comprehensive Metabolic Prof ilon 03-31-2025 Albumin [Mass/Vol] 4.3 g/dL Normal 3.4-4.8 [facility] Comment on above: Performed By: #### L 500.4050, L100.0100 #### [facility] [address] [place], [address] Albumin/Globulin [Mass ratio] 1.5 {ratio} Normal 0.9-2.4 [facility] Comment on above: Performed By: #### L 500.4050, L100.0100 #### [facility] [address] [place] [place], [address] ALK PHOS 95 U/L Normal 35-104 [facility] Comment on above: Performed By: #### L 500.4050, L100.0100 #### [facility] [address] [place] [place], [address] ALT [Catalytic activity/Vol] 25 U/L Normal <=34 [facility] Comment on above: Performed By: #### L 500.4050, L100.0100 #### [facility] [address] [place], [address] AST [Catalytic activity/Vol] 18 U/L Normal <=31 [facility] Comment on above: Performed By: #### L 500.4050, L100.0100 #### [facility] [address] [place], [address] Bilirubin [Mass/Vol] 0.21 mg/dL Normal 0.00-1.30 [facility] Comment on above: Performed By: #### L 500.4050, L100.0100 #### [facility] [address] [place] [place], [address] BUN/CRE 15.4 RATIO Normal 10-20 [facility] Comment on above: Performed By: #### L 500.4050, L100.0100 #### [facility] [address] [place], [address] Calcium [Mass/Vol] 9.4 mg/dL Normal 7.6-11.0 [facility] Comment on above: Performed By: #### L 500.4050, L100.0100 #### [facility] [address] [place], [address] Chloride [Moles/Vol] 105 mmol/L Normal 98-108 [facility] Comment on above: Performed By: #### L 500.4050, L100.0100 #### [facility] [address] [place] [place], [address] CO2 [Moles/Vol] 23.0 mmol/L Normal 21.0-32.0 [facility] Comment on above: Performed By: #### L 500.4050, L100.0100 #### [facility] [address] [place] [place], [address] Creatinine [Mass/Vol] 0.63 mg/dL Low 0.70-1.20 [facility] Comment on above: Performed By: #### L 500.4050, L100.0100 #### [facility] [address] [place], [address] ECRCL 109.53 ml/min Normal 50-250 [facility] Comment on above: Performed By: #### L 500.4050, L100.0100 #### [facility] [address] [place], [address] GAP 14 Normal 5-15 [facility] Comment on above: Performed By: #### L 500.4050, L100.0100 #### [facility] [address] [place] [place], [address] GFR/1.73 sq M.predicted among non-blacks MDRD (S/P/Bld) [Vol rate/Area] 102 mL/min/{1.73_m2} Normal >60 [facility] Comment on above: Result Comment: mL/m in/1.73m2 CKD-EPI Creatinine Equation (2020) Performed By: #### L 500.4050, L100.0100 #### [facility] [address] [place], [address] Globulin (S) [Mass/Vol] 2.9 g/dL Normal 2.2-4.2 [facility] Comment on above: Performed By: #### L 500.4050, L100.0100 #### [facility] [address] [place], [address] Glucose [Mass/Vol] 90 mg/dL Normal 70-99 [facility] Comment on above: Performed By: #### L 500.4050, L100.0100 #### [facility] [address] [place], [address] Potassium [Moles/Vol] 3.8 mmol/L Normal 3.3-5.1 [facility] Comment on above: Performed By: #### L 500.4050, L100.0100 #### [facility] [address] [place], [address] Sodium [Moles/Vol] 142 mmol/L Normal 133-145 [facility] Comment on above: Performed By: #### L 500.4050, L100.0100 #### [facility] [address] [place] [place], [address] T PROT 7.1 g/dL Normal 5.9-8.4 [facility] Comment on above: Performed By: #### L 500.4050, L100.0100 #### [facility] [address] [place], [address] Urea nitrogen [Mass/Vol] 10 mg/dL Normal 4-19 [facility] Comment on above: Performed By: #### L 500.4050, L100.0100 #### [facility] [address] [place], [address] Emergency Department Summary on 03-31-2025 Emergency Department Summary [facility] Medical Records Department [address] [place] [address] Emergency Department Summary 03/31/25 MR#: [id number] Acct: [id number] Name: DARWIN CULLEN Rep #: [id number] : 1965 60 From: Per Marrero MD PCP: Dr. Ginna Kowalski MD Status:REG ER Location: ED HPI HPI - GI History of Present Illness Chief Complaint: Nausea/Vomiting Informant: patient Nausea/Vomiting/Emesis GI Symptom: Positive for Nausea and Vomiting Diarrhea/Melena/Hematochez ia GI Symptom: Positive for Hematochezia Narrative Narrative: 60-year-old female recent left foot reconstruction surgery. She has been using a lot of Motrin like 1000 mg 4 times a day and Tylenol. Believes that she may have a GI bleed. She has had a lot of nausea. Had a small amount of coffee-ground emesis and some bright red blood per rectum. Nausea today but no vomiting. No melena today. She currently is on Protonix. Prior similar symptoms: Yes Recent Illness/Hospitalization: No PFSH PFSH Medical History Wears glasses Post-menopausal Rheumatoid arthritis Arthritis Back [...] mcg/actuation 1 - 2 puff Inhalation Q4H PRN IA N 05/01/14 02/20/25 History aerosol inhaler Asthma ibuprofen 200 mg tablet 200 mg PO Q6H PRN PRN Pain 7 02/20/25 History promethazine 25 mg tablet 25 mg PO Q6H PRN nausea and Unknown Rx vomiting #20 tabs sumatriptan succinate 6 mg/0.5 mL 6 mg (0.5 mL) subcut X1 PRN 06/21 Unknown Rx subcutaneous pen injector migraine headache #1 mL butalbital 50 mg-acetaminophen 325 1 cap PO Q4H PRN pain 02/07/25 U nknown History mg-caffeine 40 mg-codeine 30 mg cap ergocalciferol (vitamin D2) 1,250 1,250 mcg PO QWEEK 02/07/2502/17 History mcg (50,000 unit) capsule lorazepam 0.5 mg tablet 0.5 mg PO PRN PRN DENTAL 02/07/25 Unknown History ondansetron 4 mg disintegrating 8 mg PO Q8H PRN PRN Nausea 02/07/ 5 02/20/25 History tablet acetaminophen 500 mg tablet 1,000 mg (2 x 500 mg) PO Q6H 10 Unknown Rx (Tylenol Extra Strength) days #80 tabs ascorbic acid (vitamin C) 1,000 mg 1 g PO DAILY 90 days #90 tabs Unknown Rx tablet (Vitamin C) aspirin 81 mg tablet,delayed 81 mg PO DAILY 30 days #30 tabs Unknown Rx release calcium 500 mg (as 1 tab PO DAILY 90 days #90 tabs Unknown Rx carbonate)-vitamin D3 15 mcg (600 unit) tablet (Os-Mumtaz 500 + D3) cyclobenzaprine 10 mg tablet 10 mg PO TID muscle spasm 7 days 0 02/21/25 Unknown Rx #21 tabs docusate sodium 100 mg capsule 100 mg PO DAILY 10 days #10 caps 0 02/21/25 Unknown Rx (Colace) oxycodone 5 mg tablet 5 mg PO Q4H pain 7 days #42 tabs 0 02/21/25 Unknown Rx oxycodone 5 mg tablet 5 mg PO Q4H pain 7 days #42 tabs 0 02/28/25 Unknown Rx oxycodone 5 mg tablet 5 mg PO Q4H pain 7 days #42 tabs 0 03/09/25 Unknown Rx cyclobenzaprine 10 mg tablet 10 mg PO TID muscle spasm 7 days 0 03/13/25 Unknown Rx #21 tabs pantoprazole 40 mg tablet,delayed 40 mg PO BID 10 days #20 tabs 02/02 Unknown Rx release (Protonix) Allergy/AdvReac Type Severity Reaction Status Date / Time diltiazem AdvReac Intermediate Leg Verified 03/31/25 15:32 swelling gabapentin (From [facility]) AdvReac Intermediate Edema Verified 03/31/25 15:32 Family History Mother Breast cancer Grandmother Breast cancer Other Heart disease Hypertension Isela Gehrigs disease Myocardial infarction Surgical History History of dental surgery History of left heart catheterization ( 06/15/18) History of lumpectomy of right breast History of section history of wrist surgery history of coccyx removal 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 History of cholecystectomy History of foot surgery History of rotator cuff surgery Hx of left knee surgery History of back surgery Social History Smoking Status: Current every day smoker tobacco type: cigarettes alcohol intake: never substance use type: does not use ROS ROS ED ROS Narrative Nausea and vomiting. Medic easier. Constitutional Constitutional ED: Denies chills or fever(s) ENT ENT ED: Denies ear pain Cardiovascular Cardiovascular: Denies chest pain (more content not included)... Normal [facility] Eosinophil percentageOrdered By: Pre Marrero on 03-31-2025 Eosinophils/100 WBC (Bld) 1.1 % 0-5 [facility] Erythrocyte distribution wid th ratioOrdered By: Per Marrero on 03-31-2025 Erythrocyte distribution width (RBC) [Ratio] 13.3 % 11.6-14.6 [facility] Erythrocyte distribution wid th standard deviationOrdered By: Per Marrero on 03-31-2025 Erythrocyte distribution width (RBC) [Ratio] 45.1 fl High 35.1-43.9 [facility] Glomerular filtration rate ( GFR) estimation/1.73 sq m using serum, plasma, or whole bOrdered By: Per Marrero on 03-31-2025 GFR/1.73 sq M.predicted among non-blacks MDRD (S/P/Bld) [Vol rate/Area] 102 mL/min/{1.73_m2} >60 [facility] Comment on above: mL/min/1.73m2 CKD-EP I Creatinine Equation (2020) Hematocrit Auto (Bld) [Volum e fraction]Ordered By: Per Marrero on 03-31-2025 Hematocrit (Bld) [Volume fraction] 39.7 % 37-47 [facility] Hemoglobin measurementOrdere d By: Per Marrero on 03-31-2025 Hemoglobin (Bld) [Mass/Vol] 13.3 g/dL 12.0-15.0 [facility] Immature granulocytes/100 WB C Auto (Bld)Ordered By: Per Marrero on 03-31-2025 Immature granulocytes/100 WBC (Bld) 0.300 % 0.0-0.9 [facility] Comment on above: IG% - Immature Granu locytes (promyelocytes, myelocytes and metamyelocytes) > 1% indicates that a LEFT SHIFT is Present. Laboratory - Chemistry and C hemistry - challengeOrdered By: Per Marrero on 03-31-2025 AST [Catalytic activity/Vol] 18 U/L <32 [facility] MCV (mean corpuscular volume ) determinationOrdered By: Pre Marrero on 03-31-2025 MCV (RBC) [Entitic vol] 93.0 fL 81-99 [facility] Mean corpuscular hemoglobin (MCH) determinationOrdered By: Per Marrero on 03-31-2025 MCH (RBC) [Entitic mass] 31.1 pg 27.0-32.0 [facility] Mean corpuscular hemoglobin concentration (MCHC) determinationOrdered By: Per Marrero on 03-31-2025 MCHC (RBC) [Mass/Vol] 33.5 g/dL 32-36 [facility] Mean platelet volume determi nationOrdered By: Per Marrero on 03-31-2025 Platelet mean volume (Bld) [Entitic vol] 9.0 fL 6.2-12.0 [facility] Monocyte percentageOrdered B y: Per Marrero on 03-31-2025 Monocytes/100 WBC (Bld) 6.9 % 0-10 [facility] Neutrophil percentageOrdered By: Per Marrero on 03-31-2025 Neutrophils/100 WBC (Bld) 55.3 % 47-70 [facility] Nucleated red blood cell per centageOrdered By: Per Marrero on 03-31-2025 Nucleated RBC/100 WBC (Bld) [Ratio] 0 % 0-5 [facility] Platelet countOrdered By: Ray Marrero on 03-31-2025 Platelets (Bld) [#/Vol] 333 10*3/uL 150-450 [facility] Potassium measurement (mass/ volume)Ordered By: Per Marrero on 03-31-2025 Potassium (Unsp spec) [Mass/Vol] 3.8 mmol/L 3.3-5.1 [facility] RBC Auto (Bld) [#/Vol]Ordere d By: Per Marrero on 03-31-2025 RBC (Bld) [#/Vol] 4.27 10*6/uL 4.2-5.4 [facility] Serum creatinine measurement (mass/volume)Ordered By: Per Marrero on 03-31-2025 Creatinine [Mass/Vol] 0.63 mg/dL Low 0.70-1.20 [facility] Serum globulin measurementOr dered By: Per Marrero on 03-31-2025 Globulin (S) [Mass/Vol] 2.9 g/dL 2.2-4.2 [facility] Serum glucose measurement (m ass/volume)Ordered By: Per Marrero on 03-31-2025 Glucose [Mass/Vol] 90 mg/dL 70-99 [facility] Serum or plasma alanine bro otransferase (ALT) measurementOrdered By: Per Marrero on 03-31-2025 ALT [Catalytic activity/Vol] 25 U/L <35 [facility] Serum or plasma albumin laura urement (mass/volume)Ordered By: Per Marrero on 03-31-2025 Albumin [Mass/Vol] 4.3 g/dL 3.4-4.8 [facility] Serum or plasma albumin/glob ulin mass ratioOrdered By: Per Marrero on 03-31-2025 Albumin/Globulin [Mass ratio] 1.5 {ratio} 0.9-2.4 [facility] Serum or plasma alkaline sabino sphatase measurementOrdered By: Per Marrero on 03-31-2025 ALP [Catalytic activity/Vol] 95 U/L 35-104 [facility] Serum or plasma calcium laura urement (mass/volume)Ordered By: Per Marrero on 03-31-2025 Calcium [Mass/Vol] 9.4 mg/dL 7.6-11.0 [facility] Serum or plasma urea nitroge n measurement (mass/volume)Ordered By: Per Marrero on 03-31-2025 Urea nitrogen [Mass/Vol] 10 mg/dL 4-19 [facility] Sodium levelOrdered By: Per Marrero on 03-31-2025 Sodium [Moles/Vol] 142 mmol/L 133-145 [facility] Total proteinOrdered By: Jose Marrero on 03-31-2025 Protein [Mass/Vol] 7.1 g/dL 5.9-8.4 [facility] White blood cell (WBC) count Ordered By: Per Marrero on 03-31-2025 WBC (Bld) [#/Vol] 7.4 10*3/uL 4.4-11.0 [facility] Oncology Visit Reporton Oncology Visit Report [facility] [place] [address] OFFICE VISIT Date of Service: 03/13/25 1307 MR#: [id number] Acct: [id number] Name: DARWIN CULLEN Rep #: [id number] : 1965 From: Emmie Ramirez NP CIVIL SERVICE WORKER -C Age/Sex: 60/F [place] [facility] [place]: Signed Unable Date 03/13/25 Patient: DARWIN CULLEN : [address] Kowalski, We recently received a referral from you for Ms. Cullen, as she meets criteria for lung cancer screening. We have made multiple attempts to reach her to schedule a shared medical decision-making visit and low- dose CT scan of the chest. Unfortunately, she has not returned our phone calls. As you know, early detection is segovia, especially with patients who are or have been heavy smokers. Because low-dose chest CT scans can significantly increase chances of survival in lung cancer patients when the cancer is caught early through screening, we will be happy to include her in the screening program if she verbalizes interest to you in the future. Please contact the lung cancer screening program at [facility] at with any further questions or concerns. Sincerely, Emmie Ramirez APRN-MCKINLEY, AOCNP 03/13/25 1308 Date Emmie Ramirez NP, NP-C Cosigner Signature: Date (if applicable) CC: Dr. Ginna Kowalski MD Normal [facility] Bedside Glucoseon 02-21-2025 FINGERSTICK GLU 108 mg/dL High 74-106 [facility] Comment on above: Result Comment: JUAN C SARIKA OF PATIENT CARE PER NURSING PROTOCOL Performed By: #### L 501.080 #### [facility] [address] [place], [address] Foot min 3 Viewson 5 Foot min 3 Views [facility] Imaging Services [address] [address] Foot min 3 Views MR#: [id number] Acct: [id number] Name: DARWIN CULLEN Rep #: [id number] : 1965 F 60 From: Ramin Taveras MD PCP: Dr. Ginna Kowalski MD Status: REG [facility] Study: Foot min 3 Views Date of Exam: 02/21/25 Exam# [id number] Ordering Dr: Markel Leyva DPM EXAM: XR Left Foot Complete, 3 or More Views CLINICAL INDICATION: 2ND AND 3RD DIGIT TECHNIQUE: Frontal, lateral and oblique views of the left foot. COMPARISON: No relevant prior studies available. FINDINGS: BONES/JOINTS: Unremarkable. No acute fracture. No dislocation. SOFT TISSUES: Unremarkable. No radiopaque foreign body. OTHER FINDINGS: Fluoroscopic guidance was used intraoperatively. A total of 6 images were obtained. Total fluoroscopy time was 241.8 seconds. Total radiation dose 7.38 mGy. RAD/Foot min 3 Views IMPRESSION: Fluoroscopic guidance was used intraoperatively. Please refer to operative note for further details. Reading Location: [facility] CC: DPJudy Leyva; Dr. Ginna Kowalski MD Compliance Spec: Signed Normal [facility] deOrdered By: Markel Leyva on 02-21-2025 Glucose [Mass/Vol] 108 mg/dL High 74-106 [facility] Comment on above: MANAGEMENT OF PATIEN T CARE PER NURSING PROTOCOL MR/POSTOP.ANEon 02-21-2025 MR/POSTOP.[facility] Medical Records Department [address] [address] Anesthesia Postop Eval I 02/21/25 1238 MR#: [id number] Acct: [id number] Name: DARWIN CULLEN Rep #: [id number] : 1965 60 From: Sheree Simpson TRAVEL CLERK PCP: Dr. Ginna Kowalski MD Status:REG [facility] Y Race: C Location: [place] [address] Anesthesia: Postop Eval I Current Vital Signs Temperature: 97.3 F Pulse Rate: 72 Blood Pressure: 127/66 Respiratory Rate: 16 Pulse Ox: 97 Assessment Airway patent: Yes Spontaneous unlabored respirations: Yes Mental status: Awake and Calm nausea: No Vomiting: No Anesthesia Complication: No Fluid Hydration Crystalloid volume administer (ml): 1,200 Total IV fluid infused: 1,200 Progress Note Anesthesia document: Postop Eval 1 completed: Yes 02/21/25 1238 Date Sheree Simpson TRAVEL CLERK Cosigner Signature: Date CC: Signed Normal [facility] MR/[id number] 02-21-2025 [facility] Medical Records Department [address] [place] [address] Anesthesia Postop Eval II 02/21/25 1255 MR#: [id number] Acct: [id number] Name: DARWIN CULLEN Rep #: [id number] : 1965 60 From: Edgardo Toth MD PCP: Dr. Ginna Kowalski MD Status:REG [facility] Y Race: C Location: [place] [address] Anesthesia Postop Eval I Sum Postop Eval Completion status Anesthesia document: Postop Eval 1 completed: Yes Anesthesia Postop Eval I Summary Anesthesia Postop Eval I Summary: Anesthesia Postop Eval I: Assessment Summary Airway patent Yes 02/21/25 12:38 TRAVEL [email or web address] Spontaneous unlabored Yes 02/21/25 12:38 TRAVEL [email or web address].[email or web address] respirations Mental status Awake,Calm 02/21/25 12:38 TRAVEL [email or web address] nausea No 02/21/25 12:38 TRAVEL CLERK.SKOBY Vomiting No 02/21/25 12:38 TRAVEL CLERK.[email or web address] Anesthesia Postop Eval I: Fluid Summary Crystalloid volume administer 1,200 02/21/25 12:38 TRAVEL [email or web address].[email or web address] (ml) Colloids volume administered ( ml) Blood Product volume administered (ml) Total IV fluid infused 1,200 02/21/25 12:38 TRAVEL [email or web address] Anesthesia Postop Eval I: Summary Notes Anesthesia Complication No 02/21/25 12:38 TRAVEL [email or web address].[email or web address] Anesthesia Complication Comment: Post-operative progress note Anesthesia: Postop Eval II Evaluation Mental status: Awake Pain Level: 2 nausea: No Vomiting: No 02/21/25 1255 Date Edgardo Mayes Signature: Date CC: Signed Normal [facility] Operative Reporton 5 Operative Report [facility] Medical Records Department [address] [place] [address] Operative Report 02/21/25 0742 MR#: [id number] Acct: [id number] Name: DEREK CULLENJaneen Kim Rep #: [id number] : 1965 60 From: Markel Leyva DPM PCP: Dr. Ginna Kowalski MD Status:DEP [facility] Location: [facility] Problems Associated Problem List Diagnoses (1) Pain in left foot: (2) Primary osteoarthritis, left ankle and foot: (3) Cavus deformity of left foot: (4) Other specified congenital deformities of feet: Operative Report (Standard) Operative Information Date of Procedure: 02/21/25 Pre-Operative Diagnosis: 1. Pain, left foot 2. Primary osteoarthritis, left foot 3. Cavus foot deformity, left foot 4. Congenital deformity, left foot Post-Operative Diagnosis: 1. Pain, left foot 2. Primary osteoarthritis, left foot 3. Cavus foot deformity, left foot 4. Congenital deformity, left foot Surgery/Procedure Performed: Procedure #1: Dresser of bone marrow aspirate concentrate, left foot Procedure #2: Endoscopic plantar fascial release, left foot Procedure #3: Osteotomy, tarsal bone, calcaneal navicular coalition, left foot Procedure #4: Osteotomy of calcaneus, Bonilla osteotomy with lateral shift, left foot Procedure #5: Tendon transfer, peroneal longus to peroneal brevis, left foot Procedure #6: Osteotomy of metatarsal, dorsiflexor osteotomy first metatarsal, left foot Procedure #7: Application of posterior splint, left lower extremity tie maker: Yes Policy Change Clerks Supervisor: Angel Hurst Tasks completed by medical practice assistant: Opening, Closing, Harvesting grafts, Dissecting tissue and Implanting device Additional temporary office assistant?: No Type of Anesthesia: General/Regional and Local RN Documented Start/Stop Times: Operation Date: 02/21/25 07:30 Case Time Into Pre-Op 02/21/25 06:04 Anesthesia Start 02/21/25 07:39 Into Room 02/21/25 07:39 Procedure Start 02/21/25 08:01 Procedure End 02/21/25 11:48 Anesthesia End 02/21/25 11:55 Out of Room 02/21/25 11:55 Into Recovery 02/21/25 11:58 Out of Recovery 02/21/25 13:07 Into Phase II Recovery 02/21/25 13:08 Out of Phase II 02/21/25 13:38 Procedure Start Time: 08:01 Procedure Stop Time: 11:48 Select all DRAINS/GRAFTS/IMPLANTS that apply: Graft Graft details: Vitoss , Tissue Tissue details: 2 cc via flow, 8 cc of bone marrow aspirate concentrate and Implanted device Implanted device details: 500 headless compression screws, plate and 2.7 screws locking and nonlocking Special Medications: Per anesthesia Estimated Blood Loss: 40 cc Fluids Replaced: Per anesthesia Specimen collected: No Description of surgery: Indications For Operation: Ms. Cullen is a 60-year-old female who was admitted to [facility] for elective left foot major surgery due to her cavus deformity. Patient is well-known to my private office and has been treated conservatively for greater than 6 months due to her cavus foot deformity. 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 We have exhausted all conservative treatment consisting of nonsteroidal anti- inflammatories, taping, shoe gear modification, pain medication, injections professional and home physical therapy. Due to the patient failing conservative treatment it was deemed necessary at this time to take the patient to the operating room performed above procedure. The patient did have surgical consultation with all risk and benefits discussed with her in great detail in the office. Chart reviewed consent was signed. Due to the patient's continued deformity as well as increased pain with failing conservative treatment it was deemed necessary at this time to take the patient the operating room performed above procedure to help reconstruct her foot to a more rectus foot type, allowing a brace to fit in the near future as well as to help decrease of the patient's constant pain. The nature of the problem, anticipated procedures, postop recovery/convalences and risk/complications include but not limited to infection, wound healing complications, digital amputation, hypertrophic scarring, numbness, tingling, chronic pain, CRPS, over and under correction, recurrence of deformity, DVT and or PE and the need for further surgery have been discussed in great detail with the patient. All questions have been answered to the patient's satisfaction. There are no guarantees given as to the outcome of the procedure. Description of Procedure: Under mild sedation, the patient was brought into the operating room and placed on the operating table in supine position. Once the patient was under general anesthesia with laryngeal mask airway, the left lower extremity was blocked (more content not included)... Normal [facility] MR/PAT.ANEon 02-07-2025 MR/PAT.ANE [facility] Medical Records Department [address] [place] [address] PAT - Anesthesia 02/07/25 1808 MR#: [id number] Acct: [id number] Name: DARWIN CULLEN Rep #: [id number] : 1965 60 From: Saul Vaca MD PCP: Dr. Ginna Kowalski MD Status:PRE [facility] Y Race: C Location: [facility] Pre-Assessment Diagnosis/Proposed Procedure Planned Operative Procedure(s): HARVEST OF BONE MARROW ASPIRATE CONCENTRATE,BONILLA OSTEOTOMY WITH LATERAL SHIFT OF LEFT CALCANEOUS WITH PERONEOUS LONGIS BREVIS TENDON TRANSFER.ENDOSCOPIC PLANTAR FASCIA RELEASE,DORSIFLEXION OSTEOTOMY OF THE FIRST METATARSAL,OSTEOTOMY OF THE LEFT TARSAL BONE. 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 Hx Respiratory Tract Infection No 02/07/25 09:20 STOP Sleep Apnea STOP Sleep Apnea - sewer pipe sorter: STOP Sleep Apnea - sewer pipe sorter Hx Hypertension No: HYPOTENSION 02/07/25 09:20 Hx [...] Tobacco Use History Tobacco Use History - sewer pipe sorter: Tobacco Use History - sewer pipe sorter Tobacco Use Cigarettes 07/19/21 08:09 Smoking Status Current every day smoker 02/07/25 09:20 Hx Tobacco Use Yes 02/07/25 09:20 Years Smoking Packs Smoked per Day Smoking Cessation Date was within the last 15 years Hx Smoking Cessation Date Hx Smoking Cessation Counseling Hematologic Medial History Hematologic Hx - sewer pipe 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 confused, unrespo /Reproduction History /Reproductive History - sewer pipe sorter: /Reproductive Hx- sewer pipe sorter Hx Now No 02/07/25 09:20 Gestational Age (in weeks): EDC: Hx Hx Para Hx Section SAB No 02/07/25 09:20 PFS Medical History (Updated 02/07/25 @ 09:28 by [...] Q4H P (more content not included)... Normal [facility] Magnesiumon 02-07-2025 Magnesium [Mass/Vol] 2.2 mg/dL Normal 1.5-2.2 [facility] Comment on above: Performed By: #### L 501.5200 #### [facility] [address] [place], [place], [address] Magnesium measurement (mass/ volume)Ordered By: Saul Vaca on 02-07-2025 Magnesium (Unsp spec) [Mass/Vol] 2.2 mg/dL 1.5-2.2 [facility] Nicotine Screen Bloodon 01-09 COTININE BLOOD 188.7 ng/mL Normal . [facility] Comment on above: Result Comment: This test was developed and its performance characteristics determined by [employer]. It has not been cleared or approved by the Food and Drug Administration. Cotinine levels greater than 20.0 are consistent with the use of tobacco or tobacco cessation products. Performed at: [address] [id number] News Operations Manager: Natacha Hays MD, Phone: [phone] Performed By: #### L 3410.9992, L3600.3400, L501.9985 ####[facility] [address] [place], [address] NICOTINE BLOOD 10.3 ng/mL Normal . [facility] Comment on above: Result Comment: This test was developed and its performance characteristics determined by [employer]. It has not been cleared or approved by the Food and Drug Administration. Nicotine levels greater than 2.0 are consistent with the use of tobacco or tobacco cessation products. Performed By: #### L 3410.9992, L3600.3400, L501.9985 ####[facility] [address] [place], [address] L3410.9992on 01-23-2025 [facility] COMMENT Normal . [facility] Comment on above: Order Comment: [id number] Result Comment: Test Ordered: [id number] 25-Hydroxyvitamin D LCMS D2+D3 25-Hydroxy, Vitamin D 16 [L ] ng/mL ES Reference Range: . Reference Range: All Ages: Target levels 30 - 100 25-Hydroxy, Vitamin D-2 <1.0 ng/mL ES Reference Range: . This test was developed and its performance characteristics determined by [facility]. It has not been cleared or approved by the Food and Drug Administration. 25-Hydroxy, Vitamin D-3 15 ng/mL ES Reference Range: . This test was developed and its performance characteristics determined by [facility]. It has not been cleared or approved by the Food and Drug Administration. Performed at: ES [facility] [employer] [address] [place] [id number] News Operations Manager: Cristino Singleton MD, Phone: [phone] Performed at: [facility] [address] [id number] News Operations Manager: Miguel Benton PhD, Phone: [phone] Performed By: #### L 3410.9992, L3600.3400, [id number] ####[facility] [address] [place], [address] Hemoglobin A1con 01-18-2025 HbA1c (Bld) [Mass fraction] 5.5 % Normal <=5.6 [facility] Comment on above: Result Comment: Norm al < 5.7 % Prediabetic 5.7 - 6.4 % Diabetic >or= 6.5 % Please note range changes. Performed By: #### L 3410.9992, L3600.3400, L501.9985 #### [facility] [address] [place], [address] Hemoglobin A1c percentageon 01-18-2025 HbA1c (Bld) [Mass fraction] 5.5 % <5.7 [facility] Comment on above: Normal < 5.7 % Predi abetic 5.7 - 6.4 % Diabetic >or= 6.5 % Please note range changes. Serum or plasma nicotine barbara surement (mass/volume)on 01-18-2025 Nicotine [Mass/Vol] 10.3 ug/mL . [facility] Comment on above: This test was develo ped and its performance characteristicsdetermined by [employer]. It has not been cleared orapproved by the Food and Drug Administration.Nicotine levels greater than 2.0 are consistent with theuse of tobacco or tobacco cessation products. Echo Completeon 12-23-2024 Echo Complete [facility] [place] [address] [address] [address] Echo Complete 12/23/24 1302 MR#: [id number] Acct: [id number] Name: DARWIN CULLEN Rep #: [id number] : 1965 59 From: Kam Fonseca MD Attending Dr: Dr. Ginna Kowalski MD Status: REG CLI Ordering Dr: Ginna Kowalski MD Date: 12/23/24 Location: [facility] Sex: F C Admitted: Reason For Study [...] sec Doppler Measurements Calculations MV E max leo: 107.9 cm/sec Lat Peak E' Leo: 12.6 cm/sec Med Peak E' Leo: 11.8 cm/sec MV A max leo: 109.5 cm/sec E/E' lat: 8.6 E/E' med: 9.1 MV E/A: 0.99 Ao V2 max: 149.2 cm/sec LV V1 max: 130.3 cm/sec PA V2 max: 187.7 cm/sec Ao max P.9 mmHg LV V1 max P.8 mmHg TR max leo: 227.7 cm/sec TR max P.7 mmHg ECHO/Echo Complete Interpretation Summary Normal LV size. The estimated ejection fraction is 65 %. Pulmonary artery systolic pressure is 24 mmHg. Structurally normal valves. Ordering Physician: Ginna Kowalski Referring Physician: Ginna Kowalski Performed By: Hui Aguirre RDCS 12/23/24 1614 Date Kam Fonseca MD CC: Dr. Ginna Kowalski MD Date Dictated: 12/23/241301 Date Transcribed: 12/23/24 1614 Compliance Spec: Signed [facility] Echocardiogram study reportO rdered By: Kam Fonseca on 12-23-2024 Study report [facility] [place] [address] [place] [address] Echo Complete 12/23/24 1302 MR#: [id number] Acct: [id number] Name: DARWIN CULLEN Rep #:[id number] : 1965 59 From: Kam Pena Attending Dr: Dr. Ginna Kowalski MD Status: REG CLI Ordering Dr: Ginna Kowalski MD Date: 0 12/23/24 Location: [facility] Sex: F C Admitted: Reason For Study [...] ml EF(MOD-sp4): 63.1 % EF(sp4-el): 63.2 % __ SV(sp4-el): 47.5 ml LA A4 area: 16.0 cm2 LA dimension(2D): 3.6 cm __ RA A4 area: 14.1 cm2 TAPSE: 2.6 cm Time Measurements MV dec time: 0.24 sec Doppler Measurements & Calculations MV E max leo: 107.9 cm/sec Lat Peak E' Leo: 12.6 cm/sec Med Peak E' Leo: 11.8 cm/sec MV A max leo: 109.5 cm/sec E/E' lat: 8.6 E/E' med: 9.1 MV E/A: 0.99 __ Ao V2 max: 149.2 cm/sec LV V1 max: 130.3 cm/sec PA V2 max: 187.7 cm/sec Ao max P.9 mmHg LV V1 max P.8 mmHg ____ TR max leo: 227.7 cm/sec TR max P.7 mmHg ECHO/Echo [...] Dictated: 12/23/24 1302 Date Transcribed: 12/23/24 1614 Compliance Spec: Signed [facility] Work Phone: Lower Ext Joint Only (Routin e)on 12-19-2024 Lower Ext Joint Only (Routine) [facility] Imaging Services [address] [place], [place] [id number] Lower Ext Joint Only (Routine) MR#: [id number] Acct: [id number] Name: DARWIN CULLEN Rep #: [id number] : 1965 F 59 From: Garcia Issa i DO PCP: Dr. Ginna Kowalski MD Status: REG CLI Study: Lower Ext Joint Only (Routine) Date of Exam: 0 12/19/24 Exam# [id number] Ordering Dr: Markel Leyva DPM EXAM: Noncontrast MRI of the [...] the sequela of prior trauma. Reading Location: [facility] CC: DPJudy Leyva; Dr. Ginna Kowalski MD Compliance Spec: Signed Normal [facility] Magnetic resonance imaging r eportOrdered By: Garcia Phelan on 12-19-2024 Study report [facility] Imaging Services [address] [place], [place] [address] Lower Ext Joint Only (Routine) MR#: [id number] Acct: [id number] Name: DARWIN CULLEN Rep #: [id number] : 1965 F 59 From: Aamir Phelan DO PCP: Dr. Ginna Kowalski MD Status: REG CLI Study:Lower Ext Joint Only (Routine) Date of Exam: 12/19/24 Exam# [id number] Ordering Dr: Alvarado Leyva DPM EXAM: Noncontrast [...] the sequela of prior trauma. Reading Location: [facility] CC: Judy Leyva; Dr. Ginna Kowalski MD ~ Compliance Spec: Signed [facility] Foot min 3 Viewson 4 Foot min 3 Views [facility] Imaging Services [address] [place] [id number] Foot min 3 Views MR#: [id number] Acct: [id number] Name: DARWIN CULLEN Rep #: [id number] : 1965 F 59 From: Mario Small DO PCP: Dr. Ginna Kowalski MD Status: REG CLI Study: Foot min 3 Views Date of Exam: 07/22/24 Exam# [id number] Ordering Dr: Ginna Kowalski MD [id number] INDICATION: LEFT FOOT SPUR EXAMINATION/TECHNIQUE: X-RAY - LEFT XR Foot 4 VIEWS COMPARISON: FINDINGS: SOFT TISSUES: No soft tissue swelling or gas. No radiopaque foreign body. BONES/JOINTS: No acute fracture or subluxation.. Normal alignment. Calcaneal spurring, more prominent posteriorly at the Achilles tendon insertion. Preservation of the joint space.. No sclerotic or destructive changes observed. RAD/Foot min 3 Views IMPRESSION: No acute bony injury. Calcaneal spurring. Electronically Signed: Mario Small DO at 8:50 EST , CC: Dr. Ginna Kowalski MD Compliance Spec: Signed Normal [facility] HIP, UNI W/ Pelvis 2-3 Views on 07-22-2024 HIP, UNI W/ Pelvis 2-3 Views [facility] Imaging Services [address], [place] [id number] HIP, UNI W/ Pelvis 2-3 Views MR#: [id number] Acct: [id number] Name: DARWIN CULLEN Rep #: [id number] : 1965 F 59 From: Mario Small DO PCP: Dr. Ginna Kowalski MD Status: REG CLI Study: HIP, UNI W/ Pelvis 2-3 Views Date of Exam: 08/04 Exam# [id number] Ordering Dr: Ginna Kowalski MD [id number] INDICATION: LEFT HIP PAIN, ABNORMAL GAIT EXAMINATION/TECHNIQUE: X-RAY - XR Hip Unilateral with Pelvis when performed; 3 Views COMPARISON: FINDINGS: PELVIC BONES: No displaced fracture, destructive [...] EST , CC: Dr. Ginna Kowalski MD Compliance Spec: Signed Normal [facility] CBC, Employeeon 07-01-2024 Absolute Lymph 1.43 X10 3/uL Normal 0.83-4.51 [facility] Comment on above: Performed By: #### L 500.2900, L100.0200, L400.0100 #### [facility] [address] [place], [address] Absolute Neut 4.0 X10 3/uL Normal 2.0-7.7 [facility] Comment on above: Performed By: #### L 500.2900, L100.0200, L400.0100 #### [facility] [address] [place], [address] Basophils/100 WBC (Bld) 1.0 % Normal 0-1 [facility] Comment on above: Performed By: #### L 500.2900, L100.0200, L400.0100 #### [facility] [address] [place], [address] Eosinophils/100 WBC (Bld) 1.3 % Normal 0-5 [facility] Comment on above: Performed By: #### L 500.2900, L100.0200, L400.0100 #### [facility] [address] [place], [address] Erythrocyte distribution width (RBC) [Ratio] 12.9 % Normal 11.6-14.6 [facility] Comment on above: Performed By: #### L 500.2900, L100.0200, L400.0100 #### [facility] [address] [place], [address] Hematocrit (Bld) [Volume fraction] 42.6 % Normal 37-47 [facility] Comment on above: Performed By: #### L 500.2900, L100.0200, L400.0100 #### [facility] [address] [place], [address] Hemoglobin (Bld) [Mass/Vol] 14.1 g/dL Normal 12.0-15.0 [facility] Comment on above: Performed By: #### L 500.2900, L100.0200, L400.0100 #### [facility] [address] [place], [address] Lymphocytes/100 WBC (Bld) 23.8 % Normal 19-41 [facility] Comment on above: Performed By: #### L 500.2900, L100.0200, L400.0100 #### [facility] [address] [place] [place], [address] MCH (RBC) [Entitic mass] 31.3 pg Normal 27.0-32.0 [facility] Comment on above: Performed By: #### L 500.2900, L100.0200, L400.0100 #### [facility] [address] [place], [address] MCHC (RBC) [Mass/Vol] 33.1 g/dL Normal 32-36 [facility] Comment on above: Performed By: #### L 500.2900, L100.0200, L400.0100 #### [facility] [address] [place], [address] MCV (RBC) [Entitic vol] 94.5 fL Normal 81-99 [facility] Comment on above: Performed By: #### L 500.2900, L100.0200, L400.0100 #### [facility] [address] [place], [address] Monocytes/100 WBC (Bld) 7.8 % Normal 0-10 [facility] Comment on above: Performed By: #### L 500.2900, L100.0200, L400.0100 #### [facility] [address] [place], [address] Neutrophils/100 WBC (Bld) 65.9 % Normal 47-70 [facility] Comment on above: Performed By: #### L 500.2900, L100.0200, L400.0100 #### [facility] [address] [place] [place], [address] NRBC # 0.00 10 3/uL Normal 0-5 [facility] Comment on above: Performed By: #### L 500.2900, L100.0200, L400.0100 #### [facility] [address] [place], [address] Nucleated RBC (Bld) [#/Vol] 0 10*3/uL Normal 0-5 [facility] Comment on above: Performed By: #### L 500.2900, L100.0200, L400.0100 #### [facility] [address] [place], [address] Platelet mean volume (Bld) [Entitic vol] 9.1 fL Normal 6.2-12.0 [facility] Comment on above: Performed By: #### L 500.2900, L100.0200, L400.0100 #### [facility] [address] [place], [address] Platelets (Bld) [#/Vol] 333 10*3/uL Normal 150-450 [facility] Comment on above: Performed By: #### L 500.2900, L100.0200, L400.0100 #### [facility] [address] [place], [address] RBC (Bld) [#/Vol] 4.51 10*6/uL Normal 4.2-5.4 [facility] Comment on above: Performed By: #### L 500.2900, L100.0200, L400.0100 #### [facility] [address] [place], [address] RDW SD 45.1 fl High 35.1-43.9 [facility] Comment on above: Performed By: #### L 500.2900, L100.0200, L400.0100 #### [facility] [address] [place], [address] WBC (Bld) [#/Vol] 6.0 10*3/uL Normal 4.4-11.0 [facility] Comment on above: Performed By: #### L 500.2900, L100.0200, L400.0100 #### [facility] [address] [place], [address] Employee [employer] 4 Albumin [Mass/Vol] 3.5 g/dL Normal 3.2-5.0 [facility] Comment on above: Performed By: #### L 500.2900, L100.0200, L400.0100 #### [facility] [address] [place], [address] Albumin/Globulin [Mass ratio] 0.9 {ratio} Normal 0.9-2.4 [facility] Comment on above: Performed By: #### L 500.2900, L100.0200, L400.0100 #### [facility] [address] [place], [address] ALK P 86 U/L Normal 45-117 [facility] Comment on above: Performed By: #### L 500.2900, L100.0200, L400.0100 #### [facility] [address] [place], [address] ALT [Catalytic activity/Vol] 25 U/L Normal 13-56 [facility] Comment on above: Performed By: #### L 500.2900, L100.0200, L400.0100 #### [facility] [address] [place], [address] AST [Catalytic activity/Vol] 13 U/L Low 15-37 [facility] Comment on above: Performed By: #### L 500.2900, L100.0200, L400.0100 #### [facility] [address] [place], [address] Bilirubin [Mass/Vol] 0.30 mg/dL Normal 0.20-1.00 [facility] Comment on above: Result Comment: For patients on eltrombopag therapy, use of Dimension [place] TBIL is not recommended. Performed By: #### L 500.2900, L100.0200, L400.0100 #### [facility] [address] [place], [address] Bilirubin.direct [Mass/Vol] 0.12 mg/dL Normal 0.00-0.30 [facility] Comment on above: Performed By: #### L 500.2900, L100.0200, L400.0100 #### [facility] [address] [place], [address] BUN/CRE 16.6 RATIO Normal 10-20 [facility] Comment on above: Performed By: #### L 500.2900, L100.0200, L400.0100 #### [facility] [address] [place], [address] CA,Total 9.2 mg/dL Normal 8.5-10.1 [facility] Comment on above: Performed By: #### L 500.2900, L100.0200, L400.0100 #### [facility] [address] [place], [address] Chloride [Moles/Vol] 108 mmol/L High 98-107 [facility] Comment on above: Performed By: #### L 500.2900, L100.0200, L400.0100 #### [facility] [address] [place] [place], [address] CHOL:HDL 3.60 Normal [facility] Comment on above: Performed By: #### L 500.2900, L100.0200, L400.0100 #### [facility] [address] [place] [place], [address] Cholesterol [Mass/Vol] 211 mg/dL High 200 [facility] Comment on above: Result Comment: <200 mg/dL Desirable 200-240 mg/dL Borderline >240 mg/dL High Risk Performed By: #### L 500.2900, L100.0200, L400.0100 #### [facility] [address] [place] [place], [address] Cholesterol in HDL [Mass/Vol] 58 mg/dL Normal [facility] Comment on above: Result Comment: The drugs N-Acetylcysteine and Metamizole may falsely depress this assay. Reference Range HDL <40 mg/dL Low HDL Cholesterol HDL >or= 60 mg/dL High HDL Cholesterol Performed By: #### L 500.2900, L100.0200, L400.0100 #### [facility] [address] [place] [place], [address] Cholesterol in LDL [Mass/Vol] 137 mg/dL High 0-130 [facility] Comment on above: Performed By: #### L 500.2900, L100.0200, L400.0100 #### [facility] [address] [place] [place], [address] Cholesterol in VLDL [Mass/Vol] 16 mg/dL Normal 5-40 [facility] Comment on above: Performed By: #### L 500.2900, L100.0200, L400.0100 #### [facility] [address] [place] [place], [address] CO2 [Moles/Vol] 29.0 mmol/L Normal 21.0-32.0 [facility] Comment on above: Performed By: #### L 500.2900, L100.0200, L400.0100 #### [facility] [address] [place], [address] Creatinine [Mass/Vol] 0.60 mg/dL Normal 0.55-1.02 [facility] Comment on above: Result Comment: The validity of the calculated GFR GFRAA in patients over 70 years has not been determined. Clinical correlation is essential. Performed By: #### L 500.2900, L100.0200, L400.0100 #### [facility] [address] [place] [place], [address] EST GFR - AA 131 mL/min Normal >60 [facility] Comment on above: Result Comment: Afri can [place] GFR Calc Performed By: #### L 500.2900, L100.0200, L400.0100 #### [facility] [address] [place], [address] GAP 5 Normal 5-15 [facility] Comment on above: Performed By: #### L 500.2900, L100.0200, L400.0100 #### [facility] [address] [place], [address] GFR/1.73 sq M.predicted among non-blacks MDRD (S/P/Bld) [Vol rate/Area] 108 mL/min/{1.73_m2} Normal >60 [facility] Comment on above: Result Comment: Non- GFR Calc Performed By: #### L 500.2900, L100.0200, L400.0100 #### [facility] [address] [place], [address] Globulin (S) [Mass/Vol] 3.9 g/dL Normal 2.2-4.2 [facility] Comment on above: Performed By: #### L 500.2900, L100.0200, L400.0100 #### [facility] [address] [place] [place], [address] Glucose [Mass/Vol] 106 mg/dL Normal 74-106 [facility] Comment on above: Result Comment: Fast ing Glucose result from 100 to 125 mg/dL suggests IMPAIRED HOMEOSTASIS per A.D.A. criteria. Performed By: #### L 500.2900, L100.0200, L400.0100 #### [facility] [address] [place] [place], [address] LDH 204 U/L Normal 84-246 [facility] Comment on above: Performed By: #### L 500.2900, L100.0200, L400.0100 #### [facility] [address] [place] [place], [address] Phosphate [Mass/Vol] 3.3 mg/dL Normal 2.5-4.9 [facility] Comment on above: Performed By: #### L 500.2900, L100.0200, L400.0100 #### [facility] [address] [place], [address] Potassium [Moles/Vol] 3.7 mmol/L Normal 3.5-5.1 [facility] Comment on above: Performed By: #### L 500.2900, L100.0200, L400.0100 #### [facility] [address] [place] [place], [address] Sodium [Moles/Vol] 142 mmol/L Normal 136-145 [facility] Comment on above: Performed By: #### L 500.2900, L100.0200, L400.0100 #### [facility] [address] [place], [address] T PROT 7.4 g/dL Normal 6.4-8.2 [facility] Comment on above: Performed By: #### L 500.2900, L100.0200, L400.0100 #### [facility] [address] [place], [address] Triglyceride [Mass/Vol] 80 mg/dL Normal [facility] Comment on above: Result Comment: The drugs N-Acetylcysteine and Metamizole may falsely depress this assay. Serum Triglycerides Reference Interval Normal <150 mg/dL Borderline high 150 - 199 mg/dL High 200 - 499 mg/dL Very High > or = 500 mg/dL Performed By: #### L 500.2900, L100.0200, L400.0100 #### [facility] [address] [place], [address] Urea nitrogen [Mass/Vol] 10 mg/dL Normal 7-18 [facility] Comment on above: Performed By: #### L 500.2900, L100.0200, L400.0100 #### [facility] [address] [place], [address] URIC 4.3 mg/dL Normal 2.6-6.0 [facility] Comment on above: Result Comment: The drugs N-Acetylcysteine and Metamizole may falsely depress this assay. Performed By: #### L 500.2900, L100.0200, L400.0100 #### [facility] [address] [place], [address] Urinalysis, Employeeon 07-01 BILIRUBIN URINE Normal Negative [facility] Comment on above: Order Comment: CLEAN CATCH Result Comment: NOT WANTED Performed By: #### L 500.2900, L100.0200, L400.0100 #### [facility] [address] [place], [address] Clarity (U) Normal Clear [facility] Comment on above: Order Comment: CLEAN CATCH Result Comment: NOT WANTED Performed By: #### L 500.2900, L100.0200, L400.0100 #### [facility] [address] [place], [address] Color (U) Normal Yellow [facility] Comment on above: Order Comment: CLEAN CATCH Result Comment: NOT WANTED Performed By: #### L 500.2900, L100.0200, L400.0100 #### [facility] [address] [place] [place], [address] GLUCOSE, UR Normal Normal [facility] Comment on above: Order Comment: CLEAN CATCH Result Comment: NOT WANTED Performed By: #### L 500.2900, L100.0200, L400.0100 #### [facility] [address] [place], [address] KETONE UR Normal Negative [facility] Comment on above: Order Comment: CLEAN CATCH Result Comment: NOT WANTED Performed By: #### L 500.2900, L100.0200, L400.0100 #### [facility] [address] [place], [address] LEUK ESTERASE Normal Negative [facility] Comment on above: Order Comment: CLEAN CATCH Result Comment: NOT WANTED Performed By: #### L 500.2900, L100.0200, L400.0100 #### [facility] [address] [place], [address] Nitrite Ql (U) Normal Negative [facility] Comment on above: Order Comment: CLEAN CATCH Result Comment: NOT WANTED Performed By: #### L 500.2900, L100.0200, L400.0100 #### [facility] [address] [place] [place], [address] OCCULT BLOOD-UR Normal Negative [facility] Comment on above: Order Comment: CLEAN CATCH Result Comment: NOT WANTED Performed By: #### L 500.2900, L100.0200, L400.0100 #### [facility] [address] [place], [address] pH UR Normal 5.0 - 8.0 [facility] Comment on above: Order Comment: CLEAN CATCH Result Comment: NOT WANTED Performed By: #### L 500.2900, L100.0200, L400.0100 #### [facility] [address] [place], [address] PROT DIPSTX Normal Negative [facility] Comment on above: Order Comment: CLEAN CATCH Result Comment: NOT WANTED Performed By: #### L 500.2900, L100.0200, L400.0100 #### [facility] [address] [place], [address] SP.GR. DIPSTX Normal 1.002-1.03 0 [facility] Comment on above: Order Comment: CLEAN CATCH Result Comment: NOT WANTED Performed By: #### L 500.2900, L100.0200, L400.0100 #### [facility] [address] [place], [address] UR Preservative Normal [facility] Comment on above: Order Comment: CLEAN CATCH Result Comment: NOT WANTED Performed By: #### L 500.2900, L100.0200, L400.0100 #### [facility] [address] [place], [address] UROBILI Normal Normal [facility] Comment on above: Order Comment: CLEAN CATCH Result Comment: NOT WANTED Performed By: #### L 500.2900, L100.0200, L400.0100 #### [facility] [address] [place], [address] Absolute lymphocyte countOrd ered By: Panda Young on 12-16-2023 Lymphocytes Auto (Unsp spec) [#/Vol] 1.86 10*3/uL 0.83-4.51 [facility] Automated lymphocyte count a s percentage of total leukocytesOrdered By: Panda Young on 12-16-2023 Lymphocytes/100 WBC Auto (Unsp spec) 35.5 % 19-41 [facility] Basophil percentageOrdered B y: Panda Young on 12-16-2023 Basophils/100 WBC (Bld) 0.6 % 0-1 [facility] Chloride [Moles/Vol] 111 mmol/L 98-107 [facility] Eosinophils/100 WBC (Bld) 1.9 % 0-5 [facility] Glucose [Mass/Vol] 98 mg/dL 74-106 [facility] Hemoglobin (Bld) [Mass/Vol] 13.2 g/dL 12.0-15.0 [facility] Monocytes/100 WBC (Bld) 8.8 % 0-10 [facility] Neutrophils (Bld) [#/Vol] 2.8 10*3/uL 2.0-7.7 [facility] Neutrophils/100 WBC (Bld) 53.0 % 47-70 [facility] Potassium [Moles/Vol] 3.9 mmol/L 3.5-5.1 [facility] Sodium [Moles/Vol] 140 mmol/L 136-145 [facility] WBC (Bld) [#/Vol] 5.2 10*3/uL 4.4-11.0 [facility] Determination of erythrocyte mean corpuscular volume (MCV)Ordered By: Panda Young on 12-16-2023 MCV (RBC) [Entitic vol] 94.1 fL 81-99 [facility] Erythrocyte distribution wid th ratioOrdered By: Panda Young on 12-16-2023 Erythrocyte distribution width (RBC) [Ratio] 12.5 % 11.6-14.6 [facility] Erythrocyte distribution wid th standard deviationOrdered By: Panda Young on 12-16-2023 Erythrocyte distribution width (RBC) [Entitic vol] 43.1 fL 35.1-43.9 [facility] Hematocrit Auto (Bld) [Volum e fraction]Ordered By: Panda Young on 12-16-2023 Hematocrit (Bld) [Volume fraction] 39.6 % 37-47 [facility] Immature granulocytes/100 WB C Auto (Bld)Ordered By: Panda Young on 12-16-2023 Immature granulocytes/100 WBC (Bld) 0.200 % 0.0-0.9 [facility] Comment on above: IG% - Immature Granu locytes (promyelocytes, myelocytes and metamyelocytes) > 1% indicates that a LEFT SHIFT is Present. Laboratory - Chemistry and C hemistry - challengeOrdered By: Panda Young on 12-16-2023 CO2 [Moles/Vol] 25.0 mmol/L 21.0-32.0 [facility] Urea nitrogen/Creatinine [Mass ratio] 20.4 mg/mg 10-20 [facility] - Hematology and Cell countsOrdered By: Panda Young on 12-16-2023 MCH (RBC) [Entitic mass] 31.4 pg 27.0-32.0 [facility] MCHC (RBC) [Mass/Vol] 33.3 g/dL 32-36 [facility] Nucleated RBC/100 WBC (Bld) [Ratio] 0 % 0-5 [facility] Platelet mean volume (Bld) [Entitic vol] 9.4 fL 6.2-12.0 [facility] Platelets (Bld) [#/Vol] 266 10*3/uL 150-450 [facility] No Panel InformationOrdered By: Panda Young on 12-16-2023 Estimated Creatinine Clearance Calc 111.96 ml/min [facility] Estimated GFR (MDRD) Amer 123 mL/min >60 [facility] Comment on above: GFR Calc Estimated GFR (MDRD) Non-Af Amer 102 mL/min >60 [facility] Comment on above: Non- GFR Calc RBC Auto (Bld) [#/Vol]Ordere d By: Panda Young on 12-16-2023 RBC (Bld) [#/Vol] 4.21 10*6/uL 4.2-5.4 [facility] Serum or plasma calcium laura urement (mass/volume)Ordered By: Panda Young on 12-16-2023 Calcium [Mass/Vol] 8.7 mg/dL 8.5-10.1 [facility] Serum or plasma creatinine m easurement (mass/volume)Ordered By: Panda Young on 12-16-2023 Creatinine [Mass/Vol] 0.64 mg/dL 0.55-1.02 [facility] Comment on above: The validity of the calculated GFR & GFRAA in patients over 70 years has not been determined. Clinical correlation is essential. Serum or plasma urea nitroge n measurement (mass/volume)Ordered By: Panda Young on 12-16-2023 Urea nitrogen [Mass/Vol] 13 mg/dL 7-18 [facility] Thin prep Papanicolaou smear with manual screeningOrdered By: Panda Young on 12-16-2023 Thin prep Papanicolaou smear with manual screening 4 5-15 [facility] Absolute lymphocyte countOrd ered By: Sol Shirley on 06-21-2023 Lymphocytes Auto (Unsp spec) [#/Vol] 2.71 10*3/uL 0.83-4.51 [facility] Basophil percentageOrdered B y: Sol Shirley on 06-21-2023 Basophil percentage 0 SEEN /hpf 0-5 [facility] Basophils/100 WBC (Bld) 1.2 % 0-1 [facility] Bilirubin [Mass/Vol] 0.20 mg/dL 0.20-1.00 [facility] Comment on above: For patients on eltr ombopag therapy, use of Dimension [place] TBIL is not recommended. Chloride [Moles/Vol] 112 mmol/L 98-107 [facility] Eosinophils/100 WBC (Bld) 1.6 % 0-5 [facility] Glucose [Mass/Vol] 120 mg/dL 74-106 [facility] Comment on above: Fasting Glucose resu lt from 100 to 125 mg/dL suggests IMPAIRED HOMEOSTASIS per A.D.A. criteria. Neutrophils (Bld) [#/Vol] 3.4 10*3/uL 2.0-7.7 [facility] Neutrophils/100 WBC (Bld) 49.7 % 47-70 [facility] Potassium [Moles/Vol] 3.6 mmol/L 3.5-5.1 [facility] Protein [Mass/Vol] 7.4 g/dL 6.4-8.2 [facility] Sodium [Moles/Vol] 141 mmol/L 136-145 [facility] WBC (Bld) [#/Vol] 6.8 10*3/uL 4.4-11.0 [facility] Bilirubin Test strip Ql (U)O rdered By: Sol Shirley on 06-21-2023 Bilirubin Ql (U) Negative Negative [facility] Blood erythrocytes count (nu mber/volume)Ordered By: Sol Shirley on 06-21-2023 RBC (Bld) [#/Vol] 4.75 10*6/uL 4.2-5.4 [facility] Blood hemoglobin measurement (mass/volume)Ordered By: Sol Shirley on 06-21-2023 Hemoglobin (Bld) [Mass/Vol] 14.9 g/dL 12.0-15.0 [facility] Blood lymphocytes/100 leukoc ytesOrdered By: Sol Shirley on 06-21-2023 Lymphocytes/100 WBC (Bld) 39.9 % 19-41 [facility] Blood monocytes/100 leukocyt esOrdered By: Sol Shirley on 06-21-2023 Monocytes/100 WBC (Bld) 7.5 % 0-10 [facility] Blood platelet mean volumeOr dered By: Sol Shirley on 06-21-2023 Platelet mean volume (Bld) [Entitic vol] 9.1 fL 6.2-12.0 [facility] Calcium oxalate crystals det ection in urine sediment by light microscopyOrdered By: Sol Shirley on 06-21-2023 Calcium oxalate crystals LM Ql (Urine sed) 2+ /hpf [facility] Determination of erythrocyte mean corpuscular volume (MCV)Ordered By: Sol Shirley on 06-21-2023 MCV (RBC) [Entitic vol] 95.6 fL 81-99 [facility] Direct bilirubinOrdered By: Sol Shirley on 06-21-2023 Bilirubin.direct [Mass/Vol] 0.07 mg/dL 0.00-0.30 [facility] Hematocrit Auto (Bld) [Volum e fraction]Ordered By: Sol Shirley on 06-21-2023 Hematocrit (Bld) [Volume fraction] 45.4 % 37-47 [facility] Ketones Test strip Ql (U)Ord ered By: Sol Shirley on 06-21-2023 Ketones Ql (U) Negative Negative [facility] - Chemistry and C hemistry - challengeOrdered By: Sol Shirley on 06-21-2023 ALP [Catalytic activity/Vol] 85 U/L 45-117 [facility] ALT [Catalytic activity/Vol] 28 U/L 13-56 [facility] CO2 [Moles/Vol] 26.0 mmol/L 21.0-32.0 [facility] Globulin (S) [Mass/Vol] 4.0 g/dL 2.2-4.2 [facility] Urea nitrogen/Creatinine [Mass ratio] 19.7 mg/mg 10-20 [facility] - Hematology and Cell countsOrdered By: Sol Shirley on 06-21-2023 Erythrocyte distribution width (RBC) [Entitic vol] 44.2 fL 35.1-43.9 [facility] Erythrocyte distribution width (RBC) [Ratio] 12.6 % 11.6-14.6 [facility] Immature granulocytes/100 WBC (Bld) 0.100 % 0.0-0.9 [facility] Comment on above: IG% - Immature Granu locytes (promyelocytes, myelocytes and metamyelocytes) > 1% indicates that a LEFT SHIFT is Present. MCH (RBC) [Entitic mass] 31.4 pg 27.0-32.0 [facility] Nucleated RBC/100 WBC (Bld) [Ratio] 0 % 0-5 [facility] MCHC Auto (RBC) [Mass/Vol]Or dered By: Sol Shirley on 06-21-2023 MCHC (RBC) [Mass/Vol] 32.8 g/dL 32-36 [facility] Mucus LM Ql (Urine sed)Order ed By: Sol Shirley on 06-21-2023 Mucus Ql (Urine sed) 0 SEEN /hpf [facility] Nitrite Test strip Ql (U)Ord ered By: Sol Shirley on 06-21-2023 Nitrite Ql (U) Negative Negative [facility] No Panel InformationOrdered By: Sol Shirley on 06-21-2023 Estimated Creatinine Clearance Calc 86.98 ml/min [facility] Estimated GFR (MDRD) Amer 118 mL/min >60 [facility] Comment on above: GFR Calc Estimated GFR (MDRD) Non-Af Amer 98 mL/min >60 [facility] Comment on above: Non- GFR Calc Platelets bldOrdered By: Johanna Shirley on 06-21-2023 Platelets (Bld) [#/Vol] 319 10*3/uL 150-450 [facility] Protein Test strip Ql (U)Ord ered By: Sol Shirley on 06-21-2023 Protein Ql (U) 15 mg/dl Negative [facility] Serum or plasma albumin laura urement (mass/volume)Ordered By: Sol Shirley on 06-21-2023 Albumin [Mass/Vol] 3.4 g/dL 3.2-5.0 [facility] Serum or plasma calcium laura urement (mass/volume)Ordered By: Sol Shirley on 06-21-2023 Calcium [Mass/Vol] 9.0 mg/dL 8.5-10.1 [facility] Serum or plasma creatinine m easurement (mass/volume)Ordered By: Sol Shirley on 06-21-2023 Creatinine [Mass/Vol] 0.66 mg/dL 0.55-1.02 [facility] Comment on above: The validity of the calculated GFR & GFRAA in patients over 70 years has not been determined. Clinical correlation is essential. Serum or plasma urea nitroge n measurement (mass/volume)Ordered By: Sol Shirley on 06-21-2023 Urea nitrogen [Mass/Vol] 13 mg/dL 7-18 [facility] Squamous epithelial cells de tection in urine sediment by light microscopyOrdered By: Sol Shirley on 06-21-2023 Epithelial cells.squamous LM Ql (Urine sed) 0-5 SEEN /hpf 5-10 [facility] Thin prep Papanicolaou smear with manual screeningOrdered By: Sol Shirley on 06-21-2023 Thin prep Papanicolaou smear with manual screening 9 U/L 15-37 [facility] Thin prep Papanicolaou smear with manual screening 3 5-15 [facility] Urine blood detectionOrdered By: Sol Shirley on 06-21-2023 RBC Ql (U) 10 /ul Negative [facility] RBC Ql (U) 0 SEEN /hpf 0-5 [facility] Urine clarityOrdered By: Johanna Shirley on 06-21-2023 Clarity (U) Clear Clear [facility] Urine color determinationOrd ered By: Sol Shirley on 06-21-2023 Color (U) Yellow Yellow [facility] Urine glucose detectionOrder ed By: Sol Shirley on 06-21-2023 Glucose Ql (U) Normal mg/dl Normal [facility] Urine leukocyte esterase det ection by dipstickOrdered By: Sol Shirley on 06-21-2023 Leukocyte esterase Test strip Ql (U) 25 /ul Negative [facility] Urine pHOrdered By: Sol Shirley on 06-21-2023 pH (U) 6.0 [pH] 5.0 - 8.0 [facility] Urine sediment bacteria coun t by microscopy (number/high power field)Ordered By: Sol Shirley on 06-21-2023 Bacteria LM.HPF (Urine sed) [#/Area] 0 /[HPF] None Seen [facility] Urine specific gravity measu rementOrdered By: Sol Shirley on 06-21-2023 Specific gravity (U) [Rel density] 1.020 1.002-1.03 0 [facility] Urobilinogen Auto test strip Ql (U)Ordered By: Sol Shirley on 06-21-2023 Urobilinogen Ql (U) Normal mg/dl Normal [facility] - Microbiology an d Antimicrobial susceptibilityon 04-21-2022 SARS-CoV-2 (COVID-19) RNA CONSUELO+probe Ql (Unsp spec) Detected [facility] Work Phone: CNOVon 12-21-2018 CNOV Office Visit (WENDI ) -- DARWIN CULLEN ([id number]) 1965 F Date Time Provider Department 12/21/18 [...] Age: [age] year old Sex: female MRN/E# [id number] Chief Complaint: Patient presents with: Back Pain: [...] left knee pain. left knee pain. Description: Burning;Tingling;Numbness; Radiating Duration Amount of Time: 2 Duration Units: Years Frequency: Intermittent Intervention: Medication;Therapeutic techniques-CPRP;Heat;Cold; Relaxation PAST MEDICAL HISTORY Diagnosis Date - Bleeding [...] EGD W/O OR W/BRUSH/WASH EGD - LAP CHOLECYSTECT/CHOLANGIOGRAP HY Normal IOC - PAST SURGICAL HISTORY OF [...] by mouth once daily. Disp: Rfl: 0 FA/MV,CA,IRON,MIN/LYCOPENE /LUT (MULTIVITAL ORAL) Take by mouth once daily. [...] and headaches. Hematological: Does not bruise/bleed easily. Psychiatric/Behavioral: The patient is not nervous/anxious. Negative for [...] upper or lower extremities proximally and distally. Practice Assistant equally strong. No spasticity or tremor Reflexes [...] LUMBAR MOTION 4V AP/LAT/ FLEX/EXT; Future MD Ijeoma Orona APRN.PHARMACEUTICAL SALESPERSON 12/21/2018 1:19 PM Signed Addended by: IJEOMA AGUSTIN PHARMACEUTICAL SALESPERSON on: 12/21/2018 01:19 PM Modules accepted: Orders Referring Provider: CARA PATEL [[id number]] Allergies As of Date: 12/21/2018 Noted Allergy Reaction PERCOCET (OXYCODONE-ACETAMINOPHEN)1 09/16/2007 4 - Hives 9 - Itching VICODIN (HYDROCODONE-ACETAMINOPHE* 06/25/2012 9 - Itching Date Reviewed: 12/21/2018 Reviewed by: Shayy Wallace - Fully Assessed Reason for Visit: Back Pain [12] Cmt: left knee Primary Visit Diagnosis:Intervertebral disc disorder with radiculopathy of lumbar region [...] Status:Closed by SHAYY WALLACE MD on 12/21/18 [facility] PROGRESSon 12-21-2018 Protein mass conc HNO ID: [id number] Author: Shayy Wallace Service: ? Author Type: Physician Type: Progress Notes Filed: 12/21/2018 1:12 PM Note Text: NEUROSURGERY CONSULT NOTE Shayy Wallace MD Date of visit: December 20, 2018 Patient Name: Ms.Joanne Cullen Date of : 1965 Current Age: [age] year old Sex: female MRN/E# [id number] Chief Complaint: Patient presents with: Back Pain: [...] left knee pain. left knee pain. Description: Burning;Tingling;Numbness; Radiating Duration Amount of Time: 2 Duration Units: Years Frequency: Intermittent Intervention: Medication;Therapeutic techniques-CPRP;Heat;Cold; Relaxation PAST MEDICAL HISTORY Diagnosis Date - Bleeding [...] EGD W/O OR W/BRUSH/WASH EGD - LAP CHOLECYSTECT/CHOLANGIOGRAP HY Normal IOC - PAST SURGICAL HISTORY OF [...] by mouth once daily. Disp: Rfl: 0 FA/MV,CA,IRON,MIN/LYCOPENE /LUT (MULTIVITAL ORAL) Take by mouth once daily. [...] and headaches. Hematological: Does not bruise/bleed easily. Psychiatric/Behavioral: The patient is not nervous/anxious. Negative for [...] upper or lower extremities proximally and distally. Practice Assistant equally strong. No spasticity or tremor Reflexes [...] AP/LAT/ FLEX/EXT; Future Shayy Wallace MD Normal [facility] Office Visiton 07-20-2017 Alcoholism counseling (procedure) no Invalid Interpretation Code [facility] Work Phone: Documentation of current medications (procedure) Done Invalid Interpretation Code [facility] Work Phone: Smoking cessation education (procedure) yes Invalid Interpretation Code [facility] Work Phone: Tobacco use [facility] Current every day smoker Invali d Interpretation Code [facility] Work Phone: Office Visiton 07-14-2017 Alcoholism counseling (procedure) no Invalid Interpretation Code [facility] Work Phone: [phone] Documentation of current medications (procedure) Done Invalid Interpretation Code [facility] Work Phone: [phone] Smoking cessation education (procedure) yes Invalid Interpretation Code [facility] Work Phone: [phone] Tobacco use [facility] Current every day smoker Invali d Interpretation Code [facility] Work Phone: [phone] Office Visiton 07-04-2017 Protein mass conc Done Invalid Interpretation Code [facility] Work Phone: [phone] Protein mass conc no Invalid Interpretation Code [facility] Work Phone: [phone] Protein mass conc yes Invalid Interpretation Code [facility] Work Phone: [phone] Tobacco smoking status NHIS Current every day smoker Invalid Interpretation Code [facility] Work Phone: [phone] Office Visiton 06-29-2017 Alcoholism counseling (procedure) no Invalid Interpretation Code [facility] Work Phone: [phone] Documentation of current medications (procedure) Done Invalid Interpretation Code [facility] Work Phone: [phone] Smoking cessation education (procedure) yes Invalid Interpretation Code [facility] Work Phone: [phone] Tobacco use [facility] Current every day smoker Invali d Interpretation Code [facility] Work Phone: [phone] Office Visiton 06-09-2017 Alcoholism counseling (procedure) no Invalid Interpretation Code [facility] Work Phone: [phone] Documentation of current medications (procedure) Done Invalid Interpretation Code [facility] Work Phone: [phone] Smoking cessation education (procedure) yes Invalid Interpretation Code [facility] Work Phone: [phone] Tobacco use [facility] Current every day smoker Invali d Interpretation Code [facility] Work Phone: [phone] Office Visiton 04-27-2017 Alcoholism counseling (procedure) no Invalid Interpretation Code [facility] Work Phone: [phone] Documentation of current medications (procedure) Done Invalid Interpretation Code [facility] Work Phone: [phone] [facility] Work Phone: [phone] Protein mass conc Done [facility] Work Phone: [phone] Protein mass conc [facility] Work Phone: [phone] Smoking cessation education (procedure) yes Invalid Interpretation Code [facility] Work Phone: [phone] Tobacco smoking status NHIS Current every day [facility] Work Phone: [phone] Tobacco use [facility] Current every day smoker Invali d Interpretation Code [facility] Work Phone: [phone] Office Visiton 04-13-2017 Alcoholism counseling (procedure) no Invalid Interpretation Code [facility] Work Phone: [phone] Documentation of current medications (procedure) Done Invalid Interpretation Code [facility] Work Phone: [phone] Protein [facility] conc [facility] Work Phone: [phone] Protein mass conc [facility] Work Phone: [phone] Protein mass conc [facility] Work Phone: [phone] Smoking cessation education (procedure) yes Invalid Interpretation Code [facility] Work Phone: [phone] Tobacco smoking status NHIS Current [facility] Work Phone: [phone] Tobacco use [facility] Current every day smoker Invali d Interpretation Code [facility] Work Phone: [phone] Office Visiton 03-10-2017 Protein [facility] conc [facility] Work Phone: [phone] Protein mass conc Done [facility] Work Phone: [phone] Protein mass conc [facility] Work Phone: [phone] Tobacco smoking status NHIS Current every day smoker [facility] Work Phone: [phone] Office Visiton 02-17-2017 Alcoholism counseling (procedure) no Invalid Interpretation Code [facility] Work Phone: [phone] Documentation of current medications (procedure) Done Invalid Interpretation Code [facility] Work Phone: [phone] Protein mass conc [facility] Work Phone: [phone] Protein mass conc Done [facility] Work Phone: [phone] Protein mass conc [facility] Work Phone: [phone] Smoking cessation education (procedure) yes Invalid Interpretation Code [facility] Work Phone: [phone] Tobacco smoking status NHIS Current every day smoker [facility] Work Phone: [phone] Tobacco use [facility] Current every day smoker Invali d Interpretation Code [facility] Work Phone: [phone] Microbiology: Culture, Body Fluidon 01-31-2017 body fluid culture . Invalid Interpretation Code [facility] Work Phone: [phone] CUBF . Invalid Interpretation Code [facility] Work Phone: [phone] Microbiology: (P) Culture, B laura Fluidon 01-29-2017 body fluid culture . Invalid Interpretation Code [facility] Work Phone: [phone] Microbiology: (P) Culture, B laura Fluidon 01-25-2017 body fluid culture . Invalid Interpretation Code [facility] Work Phone: [phone] Microbiology: (P) Culture, B laura Fluidon 01-24-2017 body fluid culture . Invalid Interpretation Code [facility] Work Phone: [phone] Lab Report: GLUCOSE, SYNOVIA L FLUIDon 01-20-2017 GE use only - for Link[employer] import when terms are not otherwise specified 97 mg/dL Invalid Interpretation Code . [facility] Work Phone: [phone] GLU, SYN FLD 97 mg/dL Invalid Interpretation Code . [facility] Work Phone: [phone] Microbiology: (P) Culture, B laura Fluidon 01-20-2017 body fluid culture . Invalid Interpretation Code [facility] Work Phone: [phone] body fluid culture Cult, AnaerobicNo gr owth in 48 hours. Invalid Interpretation Code [facility] Work Phone: [phone] Microbiology: (P) Culture, B laura Fluidon 2017 body fluid culture . Invalid Interpretation Code [facility] Work Phone: [phone] Replaced Document: (P) Cultu re, Body Fluidon 01-18-2017 body fluid culture . Invalid Interpretation Code [facility] Work Phone: [phone] Lab Report: (P) Synovial Flu id RBC, WBC AND Diffon 01-17-2017 Cell Count, Synovial Fluid 0.3630 10 3 uL High 0.000-0.00 0 [facility] Work Phone: [phone] mononuclear cells, synovial fluid as percent of leukocytes 70.5 % Invalid Interpretation Code [facility] Work Phone: [phone] neutrophils, polymorphonuclear as percent of synovial fluid leukocytes 29.5 % Invalid Interpretation Code [facility] Work Phone: [phone] SYBF MN WBC% 70.5 % Invalid Interpretation Code [facility] Work Phone: [phone] SYBF PMN WBC% 29.5 % Invalid Interpretation Code [facility] Work Phone: [phone] 0.3630 10 3 uL High 0.000-0.00 0 [facility] Work Phone: [phone] SYNOVIAL WBC 0.3490 10 3UL High 0.000-0.00 2 [facility] Work Phone: [phone] WBC, Fluid 0.3490 10 3UL High 0.000-0.00 2 [facility] Work Phone: [phone] Lab Report: Crystals, Body F luidon 01-17-2017 PATH REV Will follow Invalid Interpretation Code [facility] Work Phone: [phone] Pathology comment Will follow Invalid Interpretation Code [facility] Work Phone: [phone] Lab Report: Synovial Fluid R BC, WBC AND Diffon 01-17-2017 Erythrocytes (RBC) 0.0001 10*6/uL High 0 [facility] Work Phone: [phone] SYNOVIAL RBC 99 /uL High 0 [facility] Work Phone: [phone] Office Visiton 01-17-2017 Alcoholism counseling (procedure) no Invalid Interpretation Code [facility] Work Phone: [phone] Documentation of current medications (procedure) Done Invalid Interpretation Code [facility] Work Phone: [phone] Smoking cessation education (procedure) yes Invalid Interpretation Code [facility] Work Phone: [phone] Tobacco use [facility] Current every day smoker Invali d Interpretation Code [facility] Work Phone: [phone] Replaced Document: Crystals, Body Fluidon 01-17-2017 crystals, body fluid SYNOVIAL Invalid Interpretation Code [facility] Work Phone: [phone] CRYSTALS/BF SYNOVIAL Invalid Interpretation Code [facility] Work Phone: [phone] Replaced Document: Synovial Fluid RBC, WBC AND Diffon 01-17-2017 Lymphocytes/100 leukocytes 5 % Invalid Interpretation Code [facility] Work Phone: [phone] Lymphocytes/100 WBC (Bld) 5 % [facility] Work Phone: [phone] Monocytes 21 % Invalid Interpretation Code [facility] Work Phone: [phone] Monocytes #/vol (Bld) 21 % [facility] Work Phone: [phone] NEUTROPHIL 5 % Invalid Interpretation Code 0-25 [facility] Work Phone: [phone] neutrophils as percent of body fluid leukocytes 5 % Invalid Interpretation Code 0-25 [facility] Work Phone: [phone] OTHER CELL /SYN 69 % Invalid Interpretation Code [facility] Work Phone: [phone] other Cells 69 % Invalid Interpretation Code [facility] Work Phone: [phone] appearance, body fluid Sl Cl Invalid Interpretation Code CLEAR [facility] Work Phone: [phone] Body Fluid Total Volume 12.0 mL High 0.1-3.5 [facility] Work Phone: [phone] body fluids, viscosity Sl. Viscous Invalid Interpretation Code HIGH [facility] Work Phone: [phone] color, synovial fluid Yellow Invalid Interpretation Code Pale Yellow [facility] Work Phone: [phone] GE use only - for [employer] import when terms are not otherwise specified May follow Invalid Interpretation Code [facility] Work Phone: [phone] source of sample KNEE Invalid Interpretation Code [facility] Work Phone: [phone] SYNOVIAL COLOR Yellow Invalid Interpretation Code Pale Yellow [facility] Work Phone: [phone] SYNOVIAL SOURCE KNEE Invalid Interpretation Code [facility] Work Phone: [phone] SYNOVIAL TV 12.0 mL High 0.1-3.5 [facility] Work Phone: [phone] VISCOSITY/SYFL Sl. Viscous Invalid Interpretation Code HIGH [facility] Work Phone: [phone] Lab Report: CBC, Employeeon 04-15-2016 Absolute Neut 2.1 X10 3/UL Invalid Interpretation Code 2.0-7.7 [facility] Work [phone] Basophils/100 leukocytes 0.5 % Invalid Interpretation Code 0-1 [facility] Work Phone: [phone] Basophils/100 WBC (Bld) 0.5 % 0-1 [facility] Work Phone: [phone] Eosinophils/100 leukocytes 3.2 % Invalid Interpretation Code 0-5 [facility] Work Phone: [phone] Eosinophils/100 WBC (Bld) 3.2 % 0-5 [facility] Work Phone: [phone] Erythrocyte distribution width Auto Ratio (RBC) 45.5 fL High 35.1-43.9 [facility] Work Phone: [phone] Erythrocyte distribution width Ratio (RBC) 45.5 fL High 35.1-43.9 [facility] Work [phone] Erythrocyte distribution width Ratio (RBC) 12.9 % 11.6-14.6 [facility] Work Phone: [phone] Erythrocytes (RBC) 3.91 10*6/uL Low 4.2-5.4 [facility] Work Phone: [phone] Hematocrit (HCT) 38.8 % Invalid Interpretation Code 37-47 [facility] Work Phone: [phone] Hematocrit Volume Fraction (Bld) 38.8 % 37-47 [facility] Work Phone: [phone] Hemoglobin (HGB) 12.7 g/dL Invalid Interpretation Code 12.0-15.0 [facility] Work Phone: [phone] Lymphocytes 1.75 X10 3/UL Invalid Interpretation Code 0.83-4.51 [facility] Work Phone: [phone] Lymphocytes #/vol (Bld) 1.75 X10 3/UL 0.83-4.51 [facility] Work Phone: [phone] Lymphocytes/100 leukocytes 39.6 % Invalid Interpretation Code 19-41 [facility] Work Phone: [phone] Lymphocytes/100 WBC (Bld) 39.6 % - [facility] Work Phone: [phone] MCH 32.5 pg High 27.0-32.0 [facility] Work Phone: [phone] MCH Entitic mass (RBC) 32.5 pg High 27.0-32.0 [facility] Work Phone: [phone] MCHC 32.7 G/GL Invalid Interpretation Code 32-36 [facility] Work Phone: [phone] MCHC mass conc (RBC) 32.7 G/GL 32-36 [facility] Work Phone: [phone] MCV 99.2 fL High 81-99 [facility] Work Phone: [phone] MCV Entitic volume (RBC) 99.2 fL High 81-99 [facility] Work Phone: [phone] Monocytes/100 leukocytes 9.3 % Invalid Interpretation Code 0-10 [facility] Work Phone: [phone] Monocytes/100 WBC (Bld) 9.3 % 0-10 [facility] Work Phone: [phone] neutrophil count, blood 2.1 X10 3/UL Invalid Interpretation Code 2.0-7.7 [facility] Work Phone: [phone] Neutrophils #/vol (Bld) 2.1 X10 3/UL 2.0-7.7 [facility] Work Phone: [phone] Neutrophils Auto #/vol (Bld) 2.1 X10 3/UL Invalid Interpretation Code 2.0-7.7 [facility] Work Phone: [phone] Neutrophils/100 leukocytes 47.4 % Invalid Interpretation Code 47-70 [facility] Work Phone: [phone] Neutrophils/100 WBC (Bld) 47.4 % 47-70 [facility] Work Phone: [phone] Platelet mean volume Entitic volume (Bld) 9.3 fL 6.2-12.0 [facility] Work Phone: [phone] Platelets 224 10*3/mm3 Invalid Interpretation Code 150-450 [facility] Work Phone: [phone] Platelets #/vol (Bld) 224 10*3/mm3 150-450 [facility] Work Phone: [phone] PMV by Michelle 9.3 fL Invalid Interpretation Code 6.2-12.0 [facility] Work Phone: [phone] RBC #/vol (Bld) 3.91 10*6/uL Low 4.2-5.4 [facility] Work Phone: [phone] RDW SD 45.5 fL High 35.1-43.9 [facility] Work Phone: [phone] RDW-CA 12.9 % Invalid Interpretation Code 11.6-14.6 [facility] Work Phone: [phone] red blood cell distribution width, size density 45.5 fL High 35.1-43.9 [facility] Work Phone: [phone] WBC #/vol (Bld) 4.4 10*3/uL 4.4-11.0 [facility] Work Phone: [phone] WBC (Leukocytes) 4.4 10*3/uL Invalid Interpretation Code 4.4-11.0 [facility] Work Phone: [phone] Lab Report: Employee Profile on 04-15-2016 Alanine aminotransferase (ALT) 42 U/L Invalid Interpretation Code 12-78 [facility] Work Phone: [phone] Albumin 3.2 g/dL Low 3.4-5.0 [facility] Work Phone: [phone] Albumin/Globulin Ratio 1 {ratio} Invalid Interpretation Code 0.9-2.4 [facility] Work Phone: [phone] Alkaline phosphatase (ALP) 72 U/L Invalid Interpretation Code 50-136 [facility] Work Phone: [phone] ALP enzyme act/vol (Bld) 72 U/L Invalid Interpretation Code 50-136 [facility] Work Phone: [phone] Anion gap 5 mmol/L Invalid Interpretation Code 5-15 [facility] Work Phone: [phone] Anion gap 4 molar conc 5 Invalid Interpretation Code 5-15 [facility] Work Phone: [phone] Anion gap molar conc 5 mmol/L 5-15 [facility] Work Phone: [phone] Aspartate aminotransferase (AST) 21 U/L Invalid Interpretation Code 15-37 [facility] Work Phone: [phone] Bilirubin (direct) 0.07 mg/dL Invalid Interpretation Code 0.00-0.30 [facility] Work Phone: [phone] Bilirubin (total) 0.20 mg/dL Invalid Interpretation Code 0.20-1.00 [facility] Work Phone: [phone] BUN/Creatinine Ratio 28.9 RATIO High 10-20 [facility] Work Phone: [phone] Calcium 8.2 mg/dL Low 8.5-10.1 [facility] Work Phone: [phone] Chloride 109 mmol/L High 98-107 [facility] Work Phone: Cholesterol 164 mg/dL Invalid Interpretation Code 200 [facility] Work Phone: [phone] CO2 30.0 mmol/L Invalid Interpretation Code 21.0-32.0 [facility] Work Phone: [phone] CO2 ppres (BldV) 30.0 mmol/L Invalid Interpretation Code 21.0-32.0 [facility] Work Phone: [phone] Creatinine 0.62 mg/dL Invalid Interpretation Code 0.55-1.20 [facility] Work Phone: [phone] eGFR (non-black) 130 mL/min/{1.73_m2} Invalid Interpretation Code >60 [facility] Work Phone: [phone] eGFR (non-black) 107 mL/min/{1.73_m2} Invalid Interpretation Code >60 [facility] Work Phone: [phone] EST GFR - AA 130 mL/min Invalid Interpretation Code >60 [facility] Work Phone: [phone] Globulin 3.1 g/dL Invalid Interpretation Code 2.3-3.5 [facility] Work Phone: [phone] Globulin mass conc (S) 3.1 g/dL 2.3-3.5 [facility] Work Phone: [phone] Glucose 87 mg/dL Invalid Interpretation Code 70-110 [facility] Work Phone: [phone] Glucose mass conc 87 mg/dL Invalid Interpretation Code 70-110 [facility] Work Phone: [phone] HDL Cholesterol 66 mg/dL Invalid Interpretation Code [facility] Work Phone: [phone] lactate dehydrogenase - serum 195 U/L Invalid Interpretation Code 84-246 [facility] Work Phone: [phone] LDH 195 U/L Invalid Interpretation Code 84-246 [facility] Work Phone: [phone] LDL Cholesterol 87 mg/dL Invalid Interpretation Code 0-130 [facility] Work Phone: [phone] PHOS 3.4 mg/dL Invalid Interpretation Code 2.5-4.9 [facility] Work Phone: [phone] Phosphorus Concentratation-Rando m 3.4 mg/dL Invalid Interpretation Code 2.5-4.9 [facility] Work Phone: [phone] Potassium 4.4 mmol/L Invalid Interpretation Code 3.5-5.1 [facility] Work Phone: [phone] Protein 6.3 g/dL Low 6.4-8.2 [facility] Work Phone: [phone] Sodium 144 mmol/L Invalid Interpretation Code 136-145 [facility] Work Phone: [phone] Triglyceride 53 mg/dL Invalid Interpretation Code [facility] Work Phone: [phone] Urate 3.9 mg/dL Invalid Interpretation Code 2.6-6.0 [facility] Work Phone: [phone] Urea nitrogen 18 mg/dL Invalid Interpretation Code 7-18 [facility] Work Phone: [phone] very low density lipoproteins 11 mg/dL Invalid Interpretation Code 5-40 [facility] Work Phone: [phone] Lab Report: Nicotine Urine D rug Screenon 04-15-2016 GE use only - for [employer] import when terms are not otherwise specified Positive High <200 ng/mL [facility] Work Phone: [phone] Lab Report: Urinalysis, Empl oyeeon 04-15-2016 Albumin Ql (U) Negative Invalid Interpretation Code Negative [facility] Work Phone: [phone] Bilirubin Ql (U) Negative Invalid Interpretation Code Negative [facility] Work Phone: [phone] Ketones mass conc (U) Negative Invalid Interpretation Code Negative [facility] Work Phone: [phone] NITRITE UR Negative Invalid Interpretation Code Negative [facility] Work Phone: [phone] Nitrite Urine Negative Invalid Interpretation Code Negative [facility] Work Phone: [phone] Occult Blood, urine Negative Invalid Interpretation Code Negative [facility] Work Phone: [phone] OCCULT BLOOD-UR Negative Invalid Interpretation Code Negative [facility] Work Phone: [phone] pH (U) 7.0 [pH] 5.0 - 8.0 [facility] Work Phone: [phone] specific gravity, urine 1.010 Invalid Interpretation Code 1.002-1.03 0 [facility] Work Phone: [phone] Urine, bilirubin presence Negative Invalid Interpretation Code Negative [facility] Work Phone: [phone] Urine, clarity Clear Invalid Interpretation Code Clear [facility] Work Phone: [phone] Urine, color Yellow Invalid Interpretation Code Yellow [facility] Work Phone: [phone] Urine, glucose presence Normal mg/dl Invalid Interpretation Code Normal [facility] Work Phone: [phone] Urine, ketones presence Negative Invalid Interpretation Code Negative [facility] Work Phone: [phone] Urine, leukocyte esterase presence Negative Invalid Interpretation Code Negative [facility] Work Phone: [phone] Urine, pH 7.0 [pH] Invalid Interpretation Code 5.0 - 8.0 [facility] Work Phone: [phone] Urine, protein Negative Invalid Interpretation Code Negative [facility] Work Phone: [phone] UROBILI Normal mg/dl Invalid Interpretation Code Normal [facility] Work Phone: [phone] urobilinogen, urine, by dipstick Normal mg/dl Invalid Interpretation Code Normal [facility] Work Phone: [phone] Clinical Lists Update: Prelo tunneller 09-16-2014 Breast Mammogram screening Normal Invalid Interpretation Code [facility] Work Phone: [phone] bone density, dual energy x-ray absorptiometry Normal bone Invalid Interpretation Code [facility] Work Phone: [phone] Vital Signs Date Time Vital Sign Value Performing Clinician Facility 03-31-2025 17:09-0400 Body temperature 97.8 [degF] Dr. Ginna Kowalski MD Work Phone: [facility] 03-31-2025 17:09-0400 Diastolic blood pressure 65 mm[Hg] Dr. Ginna Kowalski MD Work Phone: [facility] 03-31-2025 17:09-0400 Heart rate 66 /min Dr. Ginna Kowalski MD Work Phone: [facility] 03-31-2025 17:09-0400 Respiratory rate 12 /min Dr. Ginna Kowalski MD Work Phone: [facility] 03-31-2025 17:09-0400 SaO2% (BldA) [Mass fraction] 98 % Dr. Ginna Kowalski MD Work Phone: [facility] 03-31-2025 17:09-0400 Systolic blood pressure 136 mm[Hg] Dr. Ginna Kowalski MD Work Phone: [facility] 03-31-2025 15:31-0400 Body height 167.[address] Ginna Kowalski MD Work Phone: [facility] 03-31-2025 15:31-0400 Body mass index (BMI) [Ratio] 33.3 kg/m2 Dr. Ginna Kowalski MD Work Phone: [facility] 03-31-2025 15:31-0400 Body weight 93.[address] Ginna Kowalski MD Work Phone: [facility] 02-21-2025 13:00-0400 Body temperature 97.4 [degF] Dr. Ginna Kowalski MD Work Phone: [facility] 02-21-2025 13:00-0400 Diastolic blood pressure 59 mm[Hg] Dr. Ginna Kowalski MD Work Phone: [facility] 02-21-2025 13:00-0400 Heart rate 62 /min Dr. Ginna Kowalski MD Work Phone: [facility] 02-21-2025 13:00-0400 Inhaled oxygen flow rate 4 L/min Dr. Ginna Kowalski MD Work Phone: [facility] 02-21-2025 13:00-0400 Respiratory rate 16 /min Dr. Ginna Kowalski MD Work Phone: [facility] 02-21-2025 13:00-0400 SaO2% (BldA) [Mass fraction] 99 % Dr. Ginna Kowalski MD Work Phone: [facility] 02-21-2025 13:00-0400 Systolic blood pressure 121 mm[Hg] Dr. Ginna Kowalski MD Work Phone: [facility] 02-21-2025 06:53-0400 Body height 167.[address] Ginna Kowalski MD Work Phone: [facility] 02-21-2025 06:53-0400 Body mass index (BMI) [Ratio] 32.7 kg/m2 Dr. Ginna Kowalski MD Work Phone: [facility] 02-21-2025 06:53-0400 Body weight [address] Ginna Kowalski MD Work Phone: [facility] 12-17-2023 20:58-0400 Body temperature 97 [degF] [facility] 12-17-2023 20:58-0400 Diastolic blood pressure 58 mm[Hg] [facility] 12-17-2023 20:58-0400 Heart rate 61 /min [facility] 12-17-2023 20:58-0400 Respiratory rate 16 /min [facility] 12-17-2023 20:58-0400 SaO2% (BldA) [Mass fraction] 94 % [facility] 12-17-2023 20:58-0400 Systolic blood pressure 146 mm[Hg] [facility] 12-17-2023 12:56-0400 Body height 167.64 cm [facility] 12-17-2023 12:56-0400 Body mass index (BMI) [Ratio] 32.4 kg/m2 [facility] 12-17-2023 12:56-0400 Body weight 91.17 kg [facility] 12-16-2023 12:00-0400 Body temperature 97.8 [degF] [facility] 12-16-2023 12:00-0400 Diastolic blood pressure 62 mm[Hg] [facility] 12-16-2023 12:00-0400 Heart rate 55 /min [facility] 12-16-2023 12:00-0400 Respiratory rate 16 /min [facility] 12-16-2023 12:00-0400 SaO2% (BldA) [Mass fraction] 97 % [facility] 12-16-2023 12:00-0400 Systolic blood pressure 154 mm[Hg] [facility] 12-16-2023 11:06-0400 Body mass index (BMI) [Ratio] 34.2 kg/m2 [facility] 12-16-2023 11:06-0400 Body weight 96.1 kg [facility] 12-16-2023 10:28-0400 Body height 167.64 cm [facility] 12-14-2023 12:49-0400 Body height 167.64 cm [facility] 12-14-2023 12:49-0400 Body temperature 98.2 [degF] [facility] 12-14-2023 12:49-0400 Diastolic blood pressure 63 mm[Hg] [facility] 12-14-2023 12:49-0400 Heart rate 69 /min [facility] 12-14-2023 12:49-0400 Respiratory rate 16 /min [facility] 12-14-2023 12:49-0400 SaO2% (BldA) [Mass fraction] 94 % [facility] 12-14-2023 12:49-0400 Systolic blood pressure 122 mm[Hg] [facility] 06-21-2023 19:29-0400 Diastolic blood pressure 70 mm[Hg] [facility] 06-21-2023 19:29-0400 Heart rate 64 /min [facility] 06-21-2023 19:29-0400 Respiratory rate 18 /min [facility] 06-21-2023 19:29-0400 SaO2% (BldA) [Mass fraction] 98 % [facility] 06-21-2023 19:29-0400 Systolic blood pressure 129 mm[Hg] [facility] 06-21-2023 16:10-0400 Body height 167.64 cm [facility] 06-21-2023 16:10-0400 Body mass index (BMI) [Ratio] 31.8 kg/m2 [facility] 06-21-2023 16:10-0400 Body temperature 97.3 [degF] [facility] 06-21-2023 16:10-0400 Body weight 89.4 kg [facility] 01-13-2016 07:51-0400 BMI (Body Mass Index) 25.82 kg/m2 [facility]opa[facility] Work Phone: 01-13-2016 07:51-0400 Body Temperature 98.1 [degF] [facility] Work Phone: 01-13-2016 07:51-0400 BP Diastolic 72 mm[Hg] [facility] Orthopa[facility] Work Phone: 01-13-2016 07:51-0400 BP Systolic 128 mm[Hg] [facility] Work Phone: 01-13-2016 07:51-0400 BSA (Body Surface Area) 1.82 m2 [facility] Work Phone: 01-13-2016 07:51-0400 Pulse (Heart Rate) 65 /min [facility] Orthopa[facility] Work Phone: 01-13-2016 07:51-0400 Pulse Oximetry 98 % [facility] Medicine [facility] Orthopa[facility] Work Phone: 01-13-2016 07:51-0400 Respiratory Rate 16 /min [facility] Work Phone: 01-13-2016 07:51-0400 Weight 72.58 kg [facility] Work Phone: 05-01-2014 14:35-0400 Height 167.64 cm [facility] Work Phone: Encounters Encounter Date Encounter Type Care Provider Facility Start: 03-31-2025 End: 03-31-2025 Emergency department patient visit Dr. Ginna Kowalski MD Work Phone: -Emergency Department Work Phone: Start: 03-13-2025 Non-patient / Non-visit Emmie Tobin ch CIVIL SERVICE WORKER-C -[facility] Work Phone: Start: 03-13-2025 ambulatory Emime Ramirez CIVIL SERVICE WORKER Facil ity:[facility] Start: 02-21-2025 End: 02-21-2025 Admission to same day surgery center Dr. Markel Leyva DPJudy [facility] Start: 02-21-2025 End: 02-21-[address] Ginna Kowalski MD Work Phone: [facility] Work Phone: Start: 02-11-2025 Encounter for genera l adult medical examination without abnormal findings [facility] Start: 02-10-2025 Encounter for other preprocedural examination Ginna Kowalski [facility] Start: 02-07-2025 End: 02-07-[address] Ginna Kowalski MD Work Phone: [facility] Work Phone: Start: 02-07-2025 End: 02-07-[address] Saul Vaca MD -Laboratory Work Phone: Start: 02-07-2025 End: 02-07-2025 ambulatory Saul Vaca Facility:[facility] Start: 01-18-2025 End: 01-18-[address] Ginna Kowalski MD Work Phone: [facility] Work Phone: Start: 01-18-2025 End: 01-18-[address] Ginna Kowalski MD -Laboratory,[facility] Work Phone: Start: 01-18-2025 End: 01-18-2025 ambulatory Ginna Kowalski Facility:[facility] Start: 12-23-2024 Non-patient / Non-visit Dr. Nicole VAZQUEZ -[facility] Start: 12-23-2024 End: 12-23-[address] Ginna Kowalski MD Work Phone: [facility] Work Phone: Start: 12-23-2024 End: 12-23-[address] Ginna Kowalski MD -Cardiovascular Services Work Phone: Start: 12-23-2024 End: 12-23-2024 ambulatory Ginna Ednairene Facility:[facility] Start: 12-19-2024 End: 12-19-[address] Ginna Kowalski MD Work Phone: [facility] Work Phone: Start: 12-19-2024 End: 12-19-[address] [facility] Work Phone: Start: 12-19-2024 End: 12-19-2024 ambulatory [facility] Facility:[facility] Start: 07-22-2024 End: 07-22-2024 ambulatory [facility] Facility:[facility] Start: 07-01-2024 ambulatory Leidy Crawford Facility:[facility] Start: 12-17-2023 End: 12-17-2023 Emergency department patient visit [facility]-Emergency Department Work Phone: Start: 12-16-2023 End: 12-16-2023 Emergency department patient visit [facility]-Emergency Department Work Phone: Start: 12-14-2023 End: 12-14-2023 Emergency department patient visit [facility]-Emergency Department Work Phone: Start: 06-21-2023 End: 06-21-2023 Emergency department patient visit [facility]-Emergency Department Work Phone: Start: 04-26-2022 End: 04-26-[address] Leidy Crawford Work Phone: [facility] Start: 04-21-2022 End: 04-21-[address] Leidy Crawford Work Phone: [facility] Start: 12-21-2018 End: 12-21-2018 Patient encounter procedure SHAYY WALLACE Facility:[facility] Procedures Date Procedure Procedure Detail Performing Clinician Start: 03-31-[address] Angela Kowalski MD Work Phone: Start: 02-21-[address] Ginna Kowalski MD Work Phone: Start: 02-21-2025 X-ray of foot, three or more views Dr. Alessandro Kowalski MD Work Phone: Start: 02-21-2025 Fusion of tarsal joints Dr. Ginna jordan MD Work Phone: Start: 01-18-[address] Ginna Kowalski MD Work Phone: Comment on above: Test Ordered: [id number] 25-Hydroxyvitamin D LCMS D2+L218-Uxboruo, Vitamin D 16 [L ] ng/mL ES Reference Range: .Reference Range:All Ages: Target levels 30 - 82877-Vktbbwa, Vitamin D-2 <1.0 ng/mL ES Reference Range: .This test was developed and its performance characteristicsdetermined by [employer] It has not been cleared or approvedby the Food and Drug Administration.25-Hydroxy, Vitamin D-3 15 ng/mL ES Reference Range: .This test was developed and its performance characteristicsdetermined by [employer] It has not been cleared or approvedby the Food and Drug Administration.Performed at: [facility] [employer] [address] [id number] Director: Cristino Singleton MD, Phone: [phone] at: [address] [id number] Director: Miguel Benton PhD, Phone: [phone] Start: 01-18-[address] Ginna Kowalski MD Work Phone: Comment on above: This test was developed and its performa nce characteristicsdetermined by [employer] It has not been cleared orapproved by the Food and Drug Administration.Cotinine levels greater than 20.0 are consistent with theuse of tobacco or tobacco cessation products.Performed at: [facility] [employer] [id number] Director: Natacha Hays MD, Phone: [phone] Start: 12-19-2024 MRI of joint of lower extremity Dr. Pelon Kowalski MD Work Phone: Start: 04-26-2022 Plain chest X-ray Dr. Leidy Crawford Work Phone: Start: 01-16-2017 End: 2017 Radiologic exam knee complete 4/more views Marysol Juarez Work Phone: Start: 01-16-2017 End: 2017 X-ray exam, knee, 4 or more Antonellajaneen Juarez Work Phone: Start: 04-15-2016 End: 04-15-2016 Urinalysis Carina Song Plan of Treatment Date Care Activity Detail Author Start: 03-31-2025 [facility] Start: 02-21-2025 Anes open proc bones lower leg/ankle/foot nos ANESTH LOWER LEG BONE SURG [facility] Start: 02-21-2025 Diagnostic bone marrow aspirations DX BONE MARROW ASPIRATIONS [facility] Start: 02-21-2025 Endoscopic plantar fasciotomy SCOPE PLANTAR FASCIOTOMY [facility] Start: 02-21-2025 Injection aa&/strd femoral nerve NJX AA&/STRD FEMORAL NRV IMG [facility] Start: 02-21-2025 Injection aa&/strd other peripheral nerve/branch NJX AA&/STRD OTHER PN/BRANCH [facility] Start: 02-21-2025 Ostectomy tarsal coalition REVISION OF FOOT [facility] Start: 02-21-2025 Osteot w/wo lngth shrt/corrj 1st metar INCISION OF METATARSAL [facility] Start: 02-21-2025 Osteotomy calcaneus w/wo internal fixation INCISION OF HEEL BONE [facility] Start: 02-21-2025 Tr/trnspl 1 tdn w/musc redirion/rerouting supfc REVISE LOWER LEG TENDON [facility] Start: 02-21-2025 Patient discharge [facility] Start: 01-18-2025 Procedure [facility] Start: 01-18-2025 Nicotine measurement [facility] Start: 12-17-2023 [facility] Start: 12-16-2023 [facility] Start: 12-14-2023 [facility] Start: 06-21-2023 [facility] Start: 07-20-2017 End: 07-20-2017 Appointment Appointment [facility] Work Phone: Start: 07-14-2017 End: 07-14-2017 Appointment Appointment [facility] Work Phone: Start: 07-04-2017 End: 07-04-2017 Appointment Appointment [facility] Work Phone: Start: 06-29-2017 End: 06-29-2017 Appointment Appointment [facility] Work Phone: Start: 06-09-2017 End: 06-09-2017 Radiologic exam knee complete 4/more views X-Ray, Knee [facility] Work Phone: Start: 06-01-2017 End: 06-01-2017 Appointment Appointment [facility] Work Phone: Start: 04-27-2017 End: 04-27-2017 Appointment Appointment [facility] Work Phone: Start: 04-13-2017 End: 04-13-2017 Appointment Appointment [facility] Work Phone: Start: 03-29-2017 End: 03-29-2017 Appointment Appointment [facility] Work Phone: Start: 03-10-2017 End: 03-10-2017 Appointment Appointment [facility] Work Phone: Start: 02-17-2017 End: 02-17-2017 Appointment Appointment [facility] Work Phone: Start: 01-23-2017 End: 01-23-2017 Mri any jt lower extrem w/o contrast matrl MRI Joint Lower Extremity [facility] Work Phone: Start: 01-23-2017 End: 01-23-2017 Mri jnt of lwr extre w/o dye MRI Joint Lower Extremity [facility] Work Phone: Start: 01-17-2017 End: 01-17-2017 *BFRW - Body Fluid RBC, WBC & DIFF *BFRW - Body Fluid RBC, WBC & DIFF [facility] Work Phone: Start: 01-17-2017 End: 01-17-2017 Bacteria identified in Body fluid by Culture *CUBF- Culture, Body Fluid [facility] Work Phone: Start: 01-17-2017 End: 01-17-2017 Crystals [type] in Body fluid by Light microscopy *PAO - Crystals, Body Fluid [facility] Work Phone: Start: 01-17-2017 End: 01-17-2017 Glucose [Mass/volume] in Body fluid *GLUBF - Glucose, Body Fluid [facility] Work Phone: Start: 01-17-2017 End: 01-17-2017 Protein in fluid *PROBF - Protein, Body Fluid [facility] Work Phone: Start: 01-17-2017 End: 01-17-2017 Appointment Appointment [facility] Work Phone: Start: 01-17-2017 End: 01-17-2017 *BFRW - Body Fluid RBC, WBC & DIFF *BFRW - Body Fluid RBC, WBC & DIFF [facility] Work Phone: Start: 01-17-2017 End: 01-17-2017 Bacteria identified in Body fluid by Culture *CUBF- Culture, Body Fluid [facility] Work Phone: Start: 01-17-2017 End: 01-17-2017 Crystals [type] in Body fluid by Light microscopy *PAO - Crystals, Body Fluid [facility] Work Phone: Start: 01-17-2017 End: 01-17-2017 Glucose *GLUBF - Glucose, Body Fluid [facility] Work Phone: Start: 01-17-2017 End: 01-17-2017 Glucose mass conc (Body fld) *GLUBF - Glucose, Body Fluid [facility] Work Phone: Start: 01-17-2017 End: 01-17-2017 Protein in fluid *PROBF - Protein, Body Fluid [facility] Work Phone: Start: 01-16-2017 End: 2017 Radiologic exam knee complete 4/more views X-Ray, Knee [facility] Work Phone: Start: 01-16-2017 End: 2017 X-ray exam, knee, 4 or more X-Ray, Knee [facility] Work Phone: Cotinine measurement [facility] Nicotine [Mass/volum e] in Serum or Plasma [facility] Patient Education [facility] Work Phone: Patient referral [facility] Work Phone: Immunizations Immunization Date Immunization Notes Care Provider [facility] 07-11-2024 influenza, seasonal, injectable, preservative free Dr. Ginna Kowalski MD Work Phone: [facility] 07-27-2023 influenza, injectabl e, quadrivalent, preservative free [facility] 06-29-2022 influenza, injectabl e, quadrivalent, preservative free [facility] 10-12-2020 Covid (Moderna) Dr. Leidy bland Work Phone: [facility] 09-14-2020 Covid (Moderna) Dr. Leidy bland Work Phone: [facility] 06-29-2020 influenza, injectabl e, quadrivalent, preservative free [facility] 06-29-2020 influenza, seasonal, injectable Dr. Leidy Crawford Work Phone: [facility] Work Phone: 06-20-2019 influenza, injectabl e, quadrivalent, preservative free [facility] 06-20-2019 influenza, seasonal, injectable Dr. Leidy Crawford Work Phone: [facility] Work Phone: 06-08-[address] Leidy Crawford Work Phone: [facility] 06-08-2018 influenza, injectabl e, quadrivalent, preservative free [facility] 06-08-2018 influenza, seasonal, injectable Dr. Leidy Crawford Work Phone: [facility] Work Phone: 06-07-2017 influenza, injectabl e, quadrivalent, preservative free [facility] 06-07-2017 influenza, seasonal, injectable Dr. Leidy Crawford Work Phone: [facility] Work Phone: 06-09-2016 influenza, injectabl e, quadrivalent, preservative free [facility] 06-09-2016 influenza, seasonal, injectable Dr. Leidy Crawford Work Phone: [facility] Work Phone: 06-15-2015 influenza, injectabl e, quadrivalent, preservative free [facility] 06-15-2015 influenza, seasonal, injectable Dr. Leidy Crawford Work Phone: [facility] Work Phone: 06-11-2014 influenza, injectabl e, quadrivalent, preservative free [facility] 06-11-2014 influenza, seasonal, injectable Dr. Leidy Crawford Work Phone: [facility] Work Phone: 10-03-2013 tetanus toxoid, redu artemio diphtheria toxoid, and acellular pertussis vaccine, adsorbed Dr. Leidy Crawford Work Phone: [facility] Payers Date Payer Category Payer Unknown [id number] 2024 Self-pay [id number] 2016 Unknown [id number] 1965 Unknown [id number] 2.16.8 [id number] Self-pay [id number] [id number] Unknown [id number] 2.16.8 [id number] Unknown [id number] 2.16.8 [id number] Unknown [id number] 2.16.8 [id number] Unknown [id number] 2.16.8 [id number] Unknown [id number] 2.16.8 [id number] Unknown [id number] 2.16.8 [id number] Unknown [id number] 2.16.8 [id number] Unknown [id number] 2.16.8 [id number] Unknown [id number] 2.16.8 [id number] Unknown [id number] 2.16.8 [id number] Social History Date Type Detail Facility Start: 02-29-2020 End: 12-17-2023 Tobacco smoking status GAIS Unknown if ever smoked [facility] Start: 07-19-2021 Occasional [facility] Start: 07-19-2021 None [facility] Start: 07-19-2021 Alone [facility] Start: 07-19-2021 Cigarettes [facility] Start: 1965 Sex Assigned At Female [facility] Start: 12-17-2023 End: 03-31-2025 Tobacco smoking status NHIS Smokes tobacco daily (finding) [facility] Start: 12-23-2024 End: 12-26-2024 Sex Female (finding) [facility] NEGATED: Highlighted row Not [facility] Medical Equipment Procedure Code Equipment Code Equipment Origin al Text Equipment Identifier Dates Fusion, talonavicular joint 2.7mm non-locking screws, T8 FDA Start: 02-21-2025 Fusion, talonavicular joint BB TRAUMA FDA Start: 02-21-2025 Fusion, talonavicular joint HEADLESS COMPRESSION SCREW 5.0mm FDA Start: 02-21-2025 Fusion, talonavicular joint PLATE, SLIM Y FDA Start: 02-21-2025 Fusion, talonavicular joint VIAFLOW, 1CC FDA Start: 02-21-2025 Fusion, talonavicular joint VIAFLOW, 1CC FDA Start: 02-21-2025 Fusion, 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) FDA Start: 02-21-2025 Fusion, talonavicular joint Orthopaedic bone screw (non-sliding) ()[id number] FDA Start: 02-21-2025 Fusion, talonavicular joint Orthopaedic bone screw (non-sliding) ()[id number] FDA Start: 02-21-2025 Goals Date Patient Goal Desired Activity /State Mental Status Date Assessment Result Facility 02-21-2025 Cognitive function Light Pain [facility] Work Phone: 02-21-2025 Cognitive function Patient Orien tation Person;Place;Time [facility] Work Phone: Clinical Notes 12-17-2023 to 03-31-2025 Note Date & Type Note Facility 03-31-2025 Discharge summary [facility] 03-31-2025 Discharge summary Note Date/Time March 31, 2025 4:32pm [facility] Medical Records Department [address] [place] [address] Emergency Department Summary 03/31/25 MR#: [id number] Acct: [id number] Name: DARWIN CULLEN Rep #:[id number] : 1965 60 From: Per Marrero MD PCP: Dr. Ginna Kowalski MD Status:REG ER Location: ED HPI HPI - GI History of Present Illness Chief Complaint: Nausea/Vomiting Informant: patient Nausea/Vomiting/Emesis GI Symptom: Positive for Nausea and Vomiting Diarrhea/Melena/Hematochezia GI Symptom: Positive for Hematochezia Narrative Narrative: 60-year-old female recent left foot reconstruction surgery. She has been using a lot of Motrin like 1000 mg 4 times a day and Tylenol. Believes that she may have a GI bleed. She has had a lot of nausea. Had a small amount of coffee-ground emesis and some bright red blood per rectum. Nausea today but no vomiting. No melena today. She currently is on Protonix. Prior similar symptoms: Yes Recent Illness/Hospitalization: No PFSH PFSH Medical History Wears glasses Post-menopausal Rheumatoid arthritis Arthritis Back pain Migraine headache History of GI bleed Gastric reflux Smoker History of pain when walking History of edema Cardiology follow-up encounter Bradycardia Hypotension History of echocardiogram Family history of ischemic heart disease History of eating disorder History of insomnia Migraine Rheumatoid arthritis Home Medications ?Medication ?Instructions ?Recorded ?Last Taken ?Type albuterol sulfate 90 mcg/actuation 1 - 2 puff Inhalati on Q4H PRN PRN 05/01/14 02/20/25 History aerosol inhaler Asthma ibuprofen 200 mg tablet 200 mg PO Q6H PRN PRN Pain 0 03/22/17 02/20/25 History promethazine 25 mg tablet 25 mg PO Q6H PRN nausea and 06/21/23 Unknown Rx vomiting #20 tabs sumatriptan succinate 6 mg/0.5 mL 6 mg (0.5 mL) subcut X1 PRN 06/21/23 Unknown Rx subcutaneous pen injector migraine headache #1 mL butalbital 50 mg-acetaminophen 325 1 cap PO Q4H PRN pa in 02/07/25 Unknown History mg-caffeine 40 mg-codeine 30 mg cap ergocalciferol (vitamin D2) 1,250 1,250 mcg PO QWEEK 0 02/07/25 02/17/25 History mcg (50,000 unit) capsule lorazepam 0.5 mg tablet 0.5 mg PO PRN PRN DENTAL Unknown History ondansetron 4 mg disintegrating 8 mg PO Q8H PRN PRN Na usea 02/07/25 02/20/25 History tablet acetaminophen 500 mg tablet 1,000 mg (2 x 500 mg) PO Q 6H 10 02/21/25 Unknown Rx (Tylenol Extra Strength) days #80 tabs ascorbic acid (vitamin C) 1,000 mg 1 g PO DAILY 90 day s #90 tabs 02/21/25 Unknown Rx tablet (Vitamin C) aspirin 81 mg tablet,delayed 81 mg PO DAILY 30 days #3 0 tabs 02/21/25 Unknown Rx release calcium 500 mg (as 1 tab PO DAILY 90 days #90 t abs 02/21/25 Unknown Rx carbonate)-vitamin D3 15 mcg (600 unit) tablet (Os-Mumtaz 500 + D3) cyclobenzaprine 10 mg tablet 10 mg PO TID muscle spasm 7 days 02/21/25 Unknown Rx #21 tabs docusate sodium 100 mg capsule 100 mg PO DAILY 10 days #10 caps 02/21/25 Unknown Rx (Colace) oxycodone 5 mg tablet 5 mg PO Q4H pain 7 days #42 tabs 02/21/25 Unknown Rx oxycodone 5 mg tablet 5 mg PO Q4H pain 7 days #42 tabs 02/28/25 Unknown Rx oxycodone 5 mg tablet 5 mg PO Q4H pain 7 days #42 tabs 03/09/25 Unknown Rx cyclobenzaprine 10 mg tablet 10 mg PO TID muscle spasm 7 days 03/13/25 Unknown Rx #21 tabs pantoprazole 40 mg tablet,delayed 40 mg PO BID 10 days #20 tabs 03/15/25 Unknown Rx release (Protonix) Allergy/AdvReac Type Severity Reaction Status Date / Time diltiazem AdvReac Intermediate Leg Verified 03/31/25 15:32 swelling gabapentin (From Horizant) AdvReac Intermediate Edema Verified 03/31/25 15:32 Family History Mother Breast cancer Grandmother Breast cancer Other Heart disease Hypertension Iesla Gehrigs disease Myocardial infarction Surgical History History of dental surgery History of left heart catheterization (~06/15/18) History of lumpectomy of right breast History of section history of wrist surgery history of coccyx removal 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 History of cholecystectomy History of foot surgery History of rotator cuff surgery Hx of left knee surgery History of back surgery Social History Smoking Status: Current every day smoker tobacco type: cigarettes alcohol intake: never substance use type: does not use ROS ROS ED ROS Narrative Nausea and vomiting. Medic easier. Constitutional Constitutional ED: Denies chills or fever(s) ENT ENT ED: Denies ear pain Cardiovascular Cardiovascular: Denies chest pain Respiratory/Chest Respiratory/Chest: Denies cough or dyspnea Gastrointestinal Gastrointestinal: Reports nausea and vomiting; Denies abdominal pain Genitourinary Genitourinary ED: Denies dysuria or hematuria Musculoskeletal Musculoskeletal: Denies arthralgias Integumentary Denies abscess Neurologic Neurologic: Denies headache(s) Psychiatric Psychiatric: Denies anxiety Endocrine Endocrinology: Denies polydipsia Hematologic/Lymphatic Hematologic/Lymphatic: Denies easy bleeding Allergic/Immunologic Allergic/Immunologic ED: Denies mouth swelling, tongue swelling or urticaria EXAM Physical Exam Narrative Exam Narrative: Well-appearing 60-year-old female. Vital signs stable afebrile. H EENT exam pupils round react light. Moist mucous membranes. Neck nontender no JVD. Lungs clear to auscultation bilaterally. Heart regular rhythm no murmur. Abdomen soft, nontender nondistended normal bowel sounds without peritoneal signs. Back nontender. Moving all 4 extremities. Left foot in a splint. Neurologically patient awake alert. Answering questions following commands. Const Vital Signs: 03/31/25 15:31 03/31/25 15:35 Temperature 98.1 F Temperature Source Oral Pulse Rate 90 Respiratory Rate 16 Blood Pressure 178/74 H 166/82 H Blood Pressure Mean 108 110 Pulse Ox 98 Oxygen Delivery Method Room Air Positive well nourished and well developed; Negative for cachectic, contracturesor unkempt General Appearance ED: well developed and NAD; Negative for unkempt, cachectic, contractures or pallor Nutritional Appearance: Negative for cachectic HEENT Reports moist mucous membranes normocephalic and atraumatic Eyes PERRL and EOMs intact bilaterally Neck no lymphadenopathy, supple and no JVD Resp normal respiratory effort and clear to auscultation bilaterally Cardio regular rate, regular rhythm, S1 normal heart sound, S2 normal heart sound and no murmurs GI non-tender, non-distended and no masses Auscultation: normoactive bowel sounds Palpation: soft; Negative for tender, guarding, pulsatile mass or rebound tenderness present Back/Spine no CVA tenderness Extremity full ROM Extremity Narrative: Left foot in a splint recent surgery. General Extremety ED: Negative for edema General Extremity: Negative for edema Neuro CN's II-XII intact bilaterally and moves all extremities Sensorium / Orientation: alert, oriented to person, oriented to place and oriented to time Motor Exam: strength 5/5 throughout Psych mental status grossly normal and thought process normal Appearance: Negative for unkempt Skin no wounds General Skin Exam: Negative for jaundice or pallor Lesions: no lesions Rashes: no rashes MDM MDM MDM Narrative Medical decision making narrative: 60-year-old female with recent surgery taking a lot of NSAIDs and Tylenol possible GI bleed. Nausea. Possibly secondary to gastritis. Should be treatedwith Zofran. Morphine for foot pain. Liter fluid. Screening labs. Repeat exam patient is doing well at 4:32 PM. Nausea improved with Zofran. Pain in the foot improved with the morphine. Once the liter of fluid is finished will be discharged home with outpatient follow-up with her brusher and shearer for her left foot. Continue on her Protonix. Be careful with any NSAIDs or aspirin due to possible gastritis or stable GI bleed. Return if worse. History & Record Review Additional record(s) reviewed:: Prior outpatient record, Prior ED visit and Prior labs Lab Data Attestation: I reviewed the patient's lab results. Lab results narrative: CBC normal white count 7.4 H&H 13.3 and 39.7 which is her baseline blood count. Platelets 333. Electrolytes show a normal gap of 14 BUN and creatinine 10 and 0.6. Liver enzymes are normal. Labs: Laboratory Results - last 24 hr 03/31/25 15:37 WBC 7.4 RBC 4.27 Hgb 13.3 Hct 39.7 MCV 93.0 MCH 31.1 MCHC 33.5 RDW Std Deviation 45.1 H RDW Coeff of Sebastien 13.3 Plt Count 333 MPV 9.0 Immature Gran % (Auto) 0.300 Neut % (Auto) 55.3 Lymph % (Auto) 35.6 [place] % (Auto) 6.9 Eos % (Auto) 1.1 Baso % (Auto) 0.8 Absolute Neuts (auto) 4.1 Absolute Lymphs (auto) 2.62 Nucleated RBC % 0 Sodium 142 Potassium 3.8 Chloride 105 Carbon Dioxide 23.0 Anion Gap 14 BUN 10 Creatinine 0.63 L Estim Creat Clear Calc 109.53 Est GFR (MDRD) Non-Af 102 BUN/Creatinine Ratio 15.4 Glucose 90 Calcium 9.4 Total Bilirubin 0.21 AST 18 ALT 25 Alkaline Phosphatase 95 Total Protein 7.1 Albumin 4.3 Globulin 2.9 Albumin/Globulin Ratio 1.5 Discharge Plan Triage Chief Complaint: Nausea/Vomiting ED Provider: Per Marrero Dx/Rx/DC Orders Prescriptions: No Action albuterol sulfate 1 INHALER inhaler 1 - 2 puff Inhalation Q4H PRN PRN (Reason: Asthma) ibuprofen 200 MG tablet 200 mg PO Q6H PRN PRN (Reason: Pain) promethazine 25 mg tablet 25 mg PO Q6H PRN (Reason: nausea and vomiting) Qty: 20 0RF sumatriptan succinate 6 mg/0.5 mL pen injector 6 mg subcut X1 PRN (Reason: migraine headache) Qty: 1 0RF lorazepam 0.5 mg tablet 0.5 mg PO PRN PRN (Reason: DENTAL ) ergocalciferol (vitamin D2) 1,250 mcg (50,000 unit) capsule 1,250 mcg PO QWEEK hiiuenvkuk-abgjlfvvbo-mhp-cod 05-325-29-30 mg capsule 1 cap PO Q4H PRN (Reason: pain) ondansetron 4 MG tablet 8 mg PO Q8H PRN PRN (Reason: Nausea) oxycodone 5 mg tablet 5 mg PO Q4H 7 Days Qty: 42 0RF aspirin 81 mg tablet,delayed release (DR/EC) 81 mg PO DAILY 30 Days Qty: 30 0RF docusate sodium [Colace] 100 mg capsule 100 mg PO DAILY 10 Days Qty: 10 0RF cyclobenzaprine 10 mg tablet 10 mg PO TID 7 Days Qty: 21 0RF calcium carbonate-vitamin D3 [Os-Mumtaz 500 + D3] 500 mg-15 mcg (600 unit) tablet 1 tab PO DAILY 90 Days Qty: 90 0RF acetaminophen [Tylenol Extra Strength] 500 mg tablet 1,000 mg PO Q6H 10 Days Qty: 80 0RF ascorbic acid (vitamin C) [Vitamin C] 1,000 mg tablet 1 g PO DAILY 90 Days Qty: 90 0RF oxycodone 5 mg tablet 5 mg PO Q4H 7 Days Qty: 42 0RF oxycodone 5 mg tablet 5 mg PO Q4H 7 Days Qty: 42 0RF cyclobenzaprine 10 mg tablet 10 mg PO TID 7 Days Qty: 21 0RF pantoprazole [Protonix] 40 mg tablet,delayed release (DR/EC) 40 mg PO BID 10 Days Qty: 20 0RF Primary Care Provider: Ginna Kowalski Referrals: Ginna Kowalski MD [Primary Care Provider] - Print Language: Japanese What to do if you have Problems For any increased pain, shortness of breath, bleeding, nausea or vomiting, chestpain, or any unexpected problems, contact your Primary Care Provider. Call [facility] ([phone]) or report to the closest Emergency Room. Call 911 if necessary. 03/31/25 1632 <Electronically signed by Per Marrero MD> Cosigner Signature (if applicable): CC: Dr. Ginna Kowalski MD ~ Signed [facility] Work Phone: [phone]) 995-914006-13-2025 Consult note [facility] Medical Records Department [address] [place] [address] Anesthesia Postop Eval I 02/21/25 1238 MR#: [id number] Acct: [id number] Name: DARWIN CULLEN Rep #:[id number] : 1965 60 From: Sheree cheatham CRNA PCP: Dr. Ginna Kowalski MD Status:REG [facility] [place] Race: C Location: [place] [address] Anesthesia: Postop Eval I Current Vital Signs Temperature: 97.3 F Pulse Rate: 72 Blood Pressure: 127/66 Respiratory Rate: 16 Pulse Ox: 97 Assessment Airway patent: Yes Spontaneous unlabored respirations: Yes Mental status: Awake and Calm nausea: No Vomiting: No Anesthesia Complication: No Fluid Hydration Crystalloid volume administer (ml): 1,200 Total IV fluid infused: 1,200 Progress Note Anesthesia document: Postop Eval 1 completed: Yes 02/21/25 1238 radha TRAVEL CLERK> Date _ Sheree Simpson CRNA Cosigner Signature: Date CC: ~ Signed [facility]06-13-2025 Consult note [facility] Medical Records Department [address] [address] Anesthesia Postop Eval II 02/21/25 1255 MR#: [id number] Acct: [id number] Name: DARWIN CULLEN Rep #:[id number] : 1965 60 From: Edgardo Toth MD PCP: Dr. Ginna Kowalski MD Status:REG SDC Y Race: C Location: [place] [address] Anesthesia Postop Eval I Sum Postop Eval Completion status Anesthesia document: Postop Eval 1 completed: Yes Anesthesia Postop Eval I Summary Anesthesia Postop Eval I Summary: Anesthesia Postop Eval I: Assessment Summary Airway patent Yes 02/21/25 12:38 [email or web address] Spontaneous unlabored Yes 02/21/25 12:38 [email or web address] respirations Mental status Awake,Calm 02/21/25 12:38 [email or web address] nausea No 02/21/25 12:38 TRAVEL [email or web address] Vomiting No 02/21/25 12:38 [email or web address] Anesthesia Postop Eval I: Fluid Summary Crystalloid volume administer 1,200 02/21/25 12:38 [email or web address] (ml) Colloids volume administered ( ml) Blood Product volume administered (ml) Total IV fluid infused 1,200 02/21/25 12:38 [email or web address] Anesthesia Postop Eval I: Summary Notes Anesthesia Complication No 02/21/25 12:38 [email or web address] [email or web address] Anesthesia Complication Comment: Post-operative progress note Anesthesia: Postop Eval II Evaluation Mental status: Awake Pain Level: 2 nausea: No Vomiting: No 02/21/25 1255 > Date _ Edgarod Toth MD Cosigner Signature: Date CC: ~ Signed [facility]06-13-2025 Radiology Diagnostic study note [facility] Imaging Services [address] [address] Foot min 3 Views MR#: [id number] Acct: [id number] Name: DARWIN CULLEN Rep #: [id number] : 1965 F 60 From: Katarina Taveras MD PCP: Dr. Ginna Kowalski MD Status: REG [facility] Study:Foot min 3 Views Date of Exam: Exam# [id number] Ordering Dr: Alvarado Leyva DPM EXAM: XR Left Foot Complete, 3 or More Views CLINICAL INDICATION: 2ND AND 3RD DIGIT TECHNIQUE: Frontal, lateral and oblique views of the left foot. COMPARISON: No relevant prior studies available. FINDINGS: BONES/JOINTS: Unremarkable. No acute fracture. No dislocation. SOFT TISSUES: Unremarkable. No radiopaque foreign body. OTHER FINDINGS: Fluoroscopic guidance was used intraoperatively. A total of 6 images were obtained.Total fluoroscopy time was 241.8 seconds. Total radiation dose 7.38 mGy. RAD/Foot min 3 Views IMPRESSION: Fluoroscopic guidance was used intraoperatively. Please refer to operative notefor further details. Reading Location: [facility] CC: DPM Dr. Markel Leyva; Dr. Ginna Kowalski MD ~ Compliance Spec: Signed [facility]06-13-2025 Consult note Author Edgardo Toth [facility] Note Date/Time February 21, 2025 6:44 am [facility] Medical Records Department [address] [place] [address] Pre-Anesthesia Evaluation 02/21/25 0643 MR#: [id number] Acct: [id number] Name: DARWIN CULLEN Rep #:[id number] : 1965 60 From: Edgardo Toth MD PCP: Dr. Ginna Kowalski MD Status:REG [facility] Race: C Location: [place] [id number] ASA Classification* ASA Classification ASA Classification: 2 Assessment & Plan Anesthesia* Anesthesia Assessment Anesthesia Assessment: Discussed sedation and/or anesthesia options, risks, benefits, and alternatives with patient/parents/legal guardian/POA. Questions invited. The patient/parents/legal guardian/POA seems to understand and agrees to proceedwith anesthesia plan. Reviewed the physical assessment, medical history, allergy history and patient home medications list prior to surgery/procedure/anesthetic and documented any changes. Performed airway and anesthesia risk assessments. Anesthesia Type Anesthesia Type: General (block only if surgeon request) Anesthesia Focused Assessment* Airway Assessment Mouth opens: >3 cm Mallampati Score: II Labs Anesthesia Preop lab: CBC WBC 6.0 K/mm3 (4.4-11.0) 07/01/24 12:39 07/01/24 RBC 4.51 M/mm3 (4.2-5.4) 07/01/24 12:39 07/01/24 Hgb 14.1 g/dL (12.0-15.0) 07/01/24 12:39 07/01/24 Hct 42.6 % (37-47) 07/01/24 12:39 07/01/24 Plt Count 333 K/mm3 (150-450) 07/01/24 12:39 07/01/24 CHEMISTRY Potassium 3.7 mmol/L (3.5-5.1) 07/01/24 12:39 07/01/24 Sodium 142 mmol/L (136-145) 07/01/24 12:39 07/01/24 Magnesium 2.2 mg/dL (1.5-2.2) 02/07/25 13:25 02/07/25 Phosphorus 3.3 mg/dL (2.5-4.9) 07/01/24 12:39 07/01/24 BUN 10 mg/dL (7-18) 07/01/24 12:39 07/01/24 Creatinine 0.60 mg/dL (0.55-1.02) 07/01/24 12:39 07/01/24 Glucose 106 mg/dL (74-106) 07/01/24 12:39 07/01/24 TSH 0.49 uIU/mL (0.358-3.74) 07/05/18 17:20 COAG PT 13.7 SECONDS (11.7-14.9) 06/15/18 13:33 Pre-Assessment Diagnosis/Proposed Procedure Planned Operative Procedure(s): HARVEST OF BONE MARROW ASPIRATE CONCENTRATE,BONILLA OSTEOTOMY WITH LATERAL SHIFT OF LEFT CALCANEOUS WITH PERONEOUS LONGIS BREVISTENDON TRANSFER.ENDOSCOPIC PLANTAR FASCIA RELEASE,DORSIFLEXION OSTEOTOMY OF THE FIRST METATARSAL,OSTEOTOMY OF THE LEFT TARSAL BONE. 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 Female Yes 02/07/25 09:20 HX of Motion Sickness No 02/07/25 09:20 HX of N/V After Surgery No 02/07/25 09:20 Non-Smoker No 02/07/25 09:20 Duration of Surgery greater Yes 02/07/25 09:20 than 60 minutes Number of Risk Factors 2 02/07/25 09:20 PONV Score Moderate Risk 02/07/25 09:20 Height & Weight Height & Weight: Anesthesia: Height & Weight Height 5 ft 6 in 02/20/25 08:50 Weight: 90.718 kg 02/20/25 08:50 Respiratory Assessment Respiratory Assessment - sewer pipe sorter: Respiratory Tract Infection Hx - sewer pipe sorter Hx Respiratory Tract Infection No 02/07/25 09:20 STOP Sleep Apnea STOP Sleep Apnea - sewer pipe sorter: STOP Sleep Apnea - sewer pipe sorter Hx Hypertension No: HYPOTENSION 02/07/25 09:20 Hx [...] Tobacco Use History Tobacco Use History - sewer pipe sorter: Tobacco Use History - sewer pipe sorter Tobacco Use Cigarettes 07/19/21 08:09 Smoking Status Current every day smoker 02/07/25 09:20 Hx Tobacco Use Yes 02/07/25 09:20 Years Smoking Packs Smoked per Day Smoking Cessation Date was within the last 15 years Hx Smoking Cessation Date Hx Smoking Cessation Counseling Hematologic Medial History Hematologic Hx - sewer pipe sorter: Hematologic Medical Hx - language therapist Hx of Blood Transfusion No 02/07/25 09:20 Hx of Transfusion in last 3 No 02/07/25 09:20 Months Date of Last Transfusion (if within last 3 months) Ever experience any problems No 02/07/25 09:20 with transfusion(s)? Specify any problems Hx of Preganancy in last 3 No 02/07/25 09:20 Months Nurse Filling Out Transfusion DSCHRIBER 02/07/25 09:20 & Questions: Date: 02/07/25 02/07/25 09:20 Time: 09:21 02/07/25 09:20 Patient unable to answer at this time (ie. confused, unrespo /Reproduction History /Reproductive History - sewer pipe sorter: /Reproductive Hx- sewer pipe sorter Hx Now No 02/07/25 09:20 Gestational Age (in weeks): EDC: Hx Hx Para Hx Section SAB No 02/07/25 09:20 Active Medications Active Medications: Current Medications Generic Name Dose Route Start Last Admin Trade Name Freq PRN Reason Stop Dose Admin Acetaminophen 1,000 mg 02/21/25 07:30 Acetaminophen 500 Mg Tablet PO 02/21/25 07:31 PREOP ONE Gabapentin 600 mg 02/21/25 07:30 Gabapentin 600 Mg Tablet PO 02/21/25 07:31 PREOP ONE Cefazolin Sodium 2 gm/ Sodium 110 mls @ 150 mls/hr 02/21/25 07:30 Chloride IV 02/21/25 08:13 INTRAOP ONE Magnesium Sulfate 1 gm/ 102 mls @ 408 mls/hr 02/21/25 07:30 Dextrose IV 02/21/25 07:44 INTRAOP ONE Lactated Ringer's 1,000 mls @ 15 mls/hr 02/21/25 06:15 IV .Q48H ADDIS Insulin Human Lispro 1 - 6 unit 02/21/25 07:30 Insulin Lispro 100 Unit/Ml Insuln.Pen SC Q4H PRN PRN BG>/= 180, SEE PROTOCOL Protocol PFSH Medical History Wears glasses Post-menopausal Rheumatoid arthritis Arthritis Back pain Migraine headache History of GI bleed Gastric reflux Smoker History of pain when walking History of edema Cardiology follow-up encounter Bradycardia Hypotension History of echocardiogram Family history of ischemic heart disease History of eating disorder History of insomnia Migraine Rheumatoid arthritis Home Medications ?Medication ?Instructions ?Recorded ?Last Taken ?Type albuterol sulfate 90 mcg/actuation 1 - 2 puff Inhalati on Q4H PRN PRN 05/01/14 02/20/25 History aerosol inhaler Asthma ibuprofen 200 mg tablet 200 mg PO Q6H PRN PRN Pain 0 03/22/17 02/20/25 History promethazine 25 mg tablet 25 mg PO Q6H PRN nausea and 06/21/23 Unknown Rx vomiting #20 tabs sumatriptan succinate 6 mg/0.5 mL 6 mg (0.5 mL) subcut X1 PRN 06/21/23 Unknown Rx subcutaneous pen injector migraine headache #1 mL butalbital 50 mg-acetaminophen 325 1 cap PO Q4H PRN pa in 02/07/25 Unknown History mg-caffeine 40 mg-codeine 30 mg cap ergocalciferol (vitamin D2) 1,250 1,250 mcg PO QWEEK 0 02/07/25 02/17/25 History mcg (50,000 unit) capsule lorazepam 0.5 mg tablet 0.5 mg PO PRN PRN DENTAL Unknown History ondansetron 4 mg disintegrating 8 mg PO Q8H PRN PRN Na usea 02/07/25 02/20/25 History tablet Allergy/AdvReac Type Severity Reaction Status Date / Time diltiazem AdvReac Intermediate Leg Verified 12/16/23 10:28 swelling gabapentin (From Horizant) AdvReac Intermediate Edema Verified 12/16/23 10:28 Family History Mother Breast cancer Grandmother Breast cancer Other Heart disease Hypertension Isela Gehrigs disease Myocardial infarction Surgical History History of dental surgery History of left heart catheterization (~06/15/18) History of lumpectomy of right breast History of section history of wrist surgery history of coccyx removal 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 History of cholecystectomy History of foot surgery History of rotator cuff surgery Hx of left knee surgery History of back surgery Social History Smoking Status: Current every day smoker tobacco type: cigarettes alcohol intake: never substance use type: does not use Review of Systems (Anesthesia) ROS Narrative System reviewed and no additional complaints, except as documented. 02/21/2544 <Electronically signed by Edgardo Toth MD > Date _ Edgardo Toth MD Cosigner Signature: Date CC: ~ Signed [facility] Work Phone: 1(656) 809-135206-13-2025 Evaluation note* Diagnosis Onset Date Resolution Status Admit Date Cavus deformity of left foot acute February 21, 2025 5:46am Other specified congenital deformities of feet acute February 21, 2 025 5:46am Pain in left foot acute February 212024 5:46am Primary osteoarthritis, left ankle and foot acute February 21, 2025 5:46am [facility] Work Phone: 1(506) 877-660406-13-2025 Consult note [facility] Medical Records Department [address] [address] Pre-Anesthesia Evaluation 02/21/25 0643 MR#: [id number] Acct: [id number] Name: DARWIN CULLEN Rep #:[id number] : 1965 60 From: Edgardo Toth MD PCP: Dr. Ginna Kowalski MD Status:REG SDC Y Race: C Location: [place] [address] ASA Classification* ASA Classification ASA Classification: 2 Assessment & Plan Anesthesia* Anesthesia Assessment Anesthesia Assessment: Discussed sedation and/or anesthesia options, risks, benefits, and alternatives with patient/parents/legal guardian/POA. Questions invited. The patient/parents/legal guardian/POA seems to understand and agrees to proceedwith anesthesia plan. Reviewed the physical assessment, medical history, allergy history and patient home medications list prior to surgery/procedure/anesthetic and documented any changes. Performed airway and anesthesia risk assessments. Anesthesia Type Anesthesia Type: General (block only if surgeon request) Anesthesia Focused Assessment* Airway Assessment Mouth opens: >3 cm Mallampati Score: II Labs Anesthesia Preop lab: CBC WBC 6.0 K/mm3 (4.4-11.0) 07/01/24 12:39 07/01/24 RBC 4.51 M/mm3 (4.2-5.4) 07/01/24 12:39 07/01/24 Hgb 14.1 g/dL (12.0-15.0) 07/01/24 12:39 07/01/24 Hct 42.6 % (37-47) 07/01/24 12:39 07/01/24 Plt Count 333 K/mm3 (150-450) 07/01/24 12:39 07/01/24 CHEMISTRY Potassium 3.7 mmol/L (3.5-5.1) 07/01/24 12:39 07/01/24 Sodium 142 mmol/L (136-145) 07/01/24 12:39 07/01/24 Magnesium 2.2 mg/dL (1.5-2.2) 02/07/25 13:25 02/07/25 Phosphorus 3.3 mg/dL (2.5-4.9) 07/01/24 12:39 07/01/24 BUN 10 mg/dL (7-18) 07/01/24 12:39 07/01/24 Creatinine 0.60 mg/dL (0.55-1.02) 07/01/24 12:39 07/01/24 Glucose 106 mg/dL (74-106) 07/01/24 12:39 07/01/24 TSH 0.49 uIU/mL (0.358-3.74) 07/05/18 17:20 COAG PT 13.7 SECONDS (11.7-14.9) 06/15/18 13:33 Pre-Assessment Diagnosis/Proposed Procedure Planned Operative Procedure(s): HARVEST OF BONE MARROW ASPIRATE CONCENTRATE,BONILLA OSTEOTOMY WITH LATERAL SHIFT OF LEFT CALCANEOUS WITH PERONEOUS LONGIS BREVISTENDON TRANSFER.ENDOSCOPIC PLANTAR FASCIARELEASE,DORSIFLEXION OSTEOTOMY OF THE FIRST METATARSAL,OSTEOTOMY OF THE LEFT TARSAL BONE. 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 History - sewer pipe sorter Hx Hospitalization No 02/07/25 09:20 Any Problems [...] take am of surgery PONV PONV - sewer pipe sorter: PONV - sewer pipe sorter Female Yes 02/07/25 09:20 HX of Motion Sickness No 02/07/25 09:20 HX of N/V After Surgery No 02/07/25 09:20 Non-Smoker No 02/07/25 09:20 Duration of Surgery greater Yes 02/07/25 09:20 than 60 minutes Number of Risk Factors 2 02/07/25 09:20 PONV Score Moderate Risk 02/07/25 09:20 Height & Weight Height & Weight: Anesthesia: Height & Weight Height 5 ft 6 in 02/20/25 08:50 Weight: 90.718 kg 02/20/25 08:50 Respiratory Assessment Respiratory Assessment - 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 Tobacco Use History Tobacco Use History - sewer pipe sorter: Tobacco Use History - sewer pipe sorter Tobacco Use Cigarettes 07/19/21 08:09 Smoking Status Current every day smoker 02/07/25 09:20 Hx Tobacco Use Yes 02/07/25 09:20 Years Smoking Packs Smoked per Day Smoking Cessation Date was within the last 15 years Hx Smoking Cessation Date Hx Smoking Cessation Counseling Hematologic Medial History Hematologic Hx - sewer pipe sorter: Hematologic Medical Hx - language therapist Hx of Blood Transfusion No 02/07/25 09:20 Hx of Transfusion in last 3 No 02/07/25 09:20 Months Date of Last Transfusion (if within last 3 months) Ever experience any problems No 02/07/25 09:20 with transfusion(s)? Specify any problems Hx of Preganancy in last 3 No 02/07/25 09:20 Months Nurse Filling Out Transfusion DSCHRIBER 02/07/25 09:20 & Questions: Date: 02/07/25 02/07/25 09:20 Time: 09:21 02/07/25 09:20 Patient unable to answer at this time (ie. confused, unrespo /Reproduction History /Reproductive History - sewer pipe sorter: /Reproductive Hx- sewer pipe sorter Hx Now No 02/07/25 09:20 Gestational Age (in weeks): EDC: Hx Hx Para Hx Section SAB No 02/07/25 09:20 Active Medications Active Medications: Current Medications Generic Name Dose Route Start Last Admin Trade Name Freq PRN Reason Stop Dose Admin Acetaminophen 1,000 mg 02/21/25 07:30 Acetaminophen 500 Mg Tablet PO 02/21/25 07:31 PREOP ONE Gabapentin 600 mg 02/21/25 07:30 Gabapentin 600 Mg Tablet PO 02/21/25 07:31 PREOP ONE Cefazolin Sodium 2 gm/ Sodium 110 mls @ 150 mls/hr 02/21/25 07:30 Chloride IV 02/21/25 08:13 INTRAOP ONE Magnesium Sulfate 1 gm/ 102 mls @ 408 mls/hr 02/21/25 07:30 Dextrose IV 02/21/25 07:44 INTRAOP ONE Lactated Ringer's 1,000 mls @ 15 mls/hr 02/21/25 06:15 IV .Q48H ADDIS Insulin Human Lispro 1 - 6 unit 02/21/25 07:30 Insulin Lispro 100 Unit/Ml Insuln.Pen SC Q4H PRN PRN BG>/= 180, SEE PROTOCOL Protocol PFSH Medical History Wears glasses Post-menopausal Rheumatoid arthritis Arthritis Back pain Migraine headache History of GI bleed Gastric reflux Smoker History of pain when walking History of edema Cardiology follow-up encounter Bradycardia Hypotension History of echocardiogram Family history of ischemic heart disease History of eating disorder History of insomnia Migraine Rheumatoid arthritis Home Medications ?Medication ?Instructions ?Recorded ?Last Taken ?Type albuterol sulfate 90 mcg/actuation 1 - 2 puff Inhalati on Q4H PRN PRN 05/01/14 02/20/25 History aerosol inhaler Asthma ibuprofen 200 mg tablet 200 mg PO Q6H PRN PRN Pain 0 03/22/17 02/20/25 History promethazine 25 mg tablet 25 mg PO Q6H PRN nausea and 06/21/23 Unknown Rx vomiting #20 tabs sumatriptan succinate 6 mg/0.5 mL 6 mg (0.5 mL) subcut X1 PRN 06/21/23 Unknown Rx subcutaneous pen injector migraine headache #1 mL butalbital 50 mg-acetaminophen 325 1 cap PO Q4H PRN pa in 02/07/25 Unknown History mg-caffeine 40 mg-codeine 30 mg cap ergocalciferol (vitamin D2) 1,250 1,250 mcg PO QWEEK 0 02/07/25 02/17/25 History mcg (50,000 unit) capsule lorazepam 0.5 mg tablet 0.5 mg PO PRN PRN DENTAL Unknown History ondansetron 4 mg disintegrating 8 mg PO Q8H PRN PRN Na usea 02/07/25 02/20/25 History tablet Allergy/AdvReac Type Severity Reaction Status Date / Time diltiazem AdvReac Intermediate Leg Verified 12/16/23 10:28 swelling gabapentin (From [facility]) AdvReac Intermediate Edema Verified 12/16/23 10:28 Family History Mother Breast cancer Grandmother Breast cancer Other Heart disease Hypertension Isela Gehrigs disease Myocardial infarction Surgical History History of dental surgery History of left heart catheterization (~06/15/18) History of lumpectomy of right breast History of section history of wrist surgery history of coccyx removal 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 History of cholecystectomy History of foot surgery History of rotator cuff surgery Hx of left knee surgery History of back surgery Social History Smoking Status: Current every day smoker tobacco type: cigarettes alcohol intake: never substance use type: does not use Review of Systems (Anesthesia) ROS Narrative System reviewed and no additional complaints, except as documented. 02/21/25 0644 > Date _ Edgardo Toth MD Cosigner Signature: Date CC: ~ Signed [address]07-2024 Discharge summary Author Per Marrero [facility] December 17, 2023 8:54pm Note Date/Time December 17, 2023 1:39 pm [facility] Medical Records Department [address] [place] [address] Emergency Department Summary 12/17/23 MR#: [id number] Acct: [id number] Name: DARWIN CULLEN Rep #:[id number] : 1965 58 From: Per Marrero MD PCP: Dr. Leidy Crawford, DO Status:REG ER Location: ED HPI History of [...] your Primary Care Provider. Call [facility] ([phone]) or report to the closest Emergency Room. Call 911 if necessary. 12/17/232053 <Electronically signed by Per Marrero MD> Cosigner Signature (if applicable): CC: Dr. Leidy Crawford DO ~ Signed [facility] Work Phone: Consult note Author Sheree Simpson [facility] Note Date/Time February 21, 2025 1:38 pm [facility] Medical Records Department [address] [place] [id number] Anesthesia Postop Eval I 02/21/25 1238 MR#: [id number] Acct: [id number] Name: DARWIN CULLEN Rep #:[id number] : 1965 60 From: Sheree cheatham CRNA PCP: Dr. Ginna Kowalski MD Status:REG ILC Y Race: C Location: [place] [address] Anesthesia: Postop Eval I Current Vital Signs Temperature: 97.3 F Pulse Rate: 72 Blood Pressure: 127/66 Respiratory Rate: 16 Pulse Ox: 97 Assessment Airway patent: Yes Spontaneous unlabored respirations: Yes Mental status: Awake and Calm nausea: No Vomiting: No Anesthesia Complication: No Fluid Hydration Crystalloid volume administer (ml): 1,200 Total IV fluid infused: 1,200 Progress Note Anesthesia document: Postop Eval 1 completed: Yes 02/21/25 1238 <Electronically signed by Sheree garcia CRNA> Date _ Sheree Simpson CRNA Cosigner Signature: Date CC: ~ Signed [facility] Work Phone: Consult note Author Edgardo [facility] Note Date/Time February 21, 2025 1:38 pm [facility] Medical Records Department [address] [place] [id number] Anesthesia Postop Eval II 02/21/25 1255 MR#: [id number] Acct: [id number] Name: DARWIN CULLEN Rep #:[id number] : 1965 60 From: Edgardo Toth MD PCP: Dr. Ginna Kowalski MD Status:REG [facility] Race: C Location: [place] [address] Anesthesia Postop Eval I Sum Postop Eval Completion status Anesthesia document: Postop Eval 1 completed: Yes Anesthesia Postop Eval I Summary Anesthesia Postop Eval I Summary: Anesthesia Postop Eval I: Assessment Summary Airway patent Yes 02/21/25 12:38 TRAVEL CLERK.BETH Spontaneous unlabored Yes 02/21/25 12:38 TRAVEL CLERK.BETH respirations Mental status Awake,Calm 02/21/25 12:38 TRAVEL CLERK.HENRRYOBClifton nausea No 02/21/25 12:38 TRAVEL CLERK.HENRRYOBClifton Vomiting No 02/21/25 12:38 TRAVEL CLERK.HENRRYOBClifton Anesthesia Postop Eval I: Fluid Summary Crystalloid volume administer 1,200 02/21/25 12:38 TRAVEL CLERK.HENRRYOBY (ml) Colloids volume administered ( ml) Blood Product volume administered (ml) Total IV fluid infused 1,200 02/21/25 12:38 TRAVEL CLERK.HENRRYOBClifton Anesthesia Postop Eval I: Summary Notes Anesthesia Complication No 02/21/25 12:38 TRAVEL CLERK.BETH Anesthesia Complication Comment: Post-operative progress note Anesthesia: Postop Eval II Evaluation Mental status: Awake Pain Level: 2 nausea: No Vomiting: No 02/21/25 1255 <Electronically signed by Edgardo Toth MD > Date _ Edgardo Toth MD Cosigner Signature: Date CC: ~ Signed [facility] Work Phone: Evaluation noteNo assessment information available [facility] Work Phone: Hospital Discharge instructions Additional Instructions Motrin and Tylenol and pain meds as needed for pain. Plenty of fluids and rest. Continue antibiotics orally and/or follow-up for further IV antibiotics. Follow-up with a local dentist to have that tooth pulled.[facility] Work Phone: Hospital Discharge instructions Additional Instructions 1. Please keep your surgical dressing clean dry and intact. Do not remove. Do not get it wet. 2. Continue rest, ice (behind your operative knee) and elevate per your postoperative instructions that were given to you at the day of your surgical consultation while in office. 3. Nonweightbearing to left lower extremity with assistive knee scooter and or crutches. Full weightbearing right lower extremity. 4. Please take all pain medication and prescriptions as written. 5. If you are a diabetic patient please continue tight glucose control while in the postoperative phase. 6. Please continue to follow-up with all your doctors visits prior and after surgery. 7. Please reach out to Dr. Leyva, through the paging system in the hospital or private office with any questions or concerns. 8. Thank you for letting me be involved in your surgical care![facility] Work Phone: Hospital Discharge instructionsAdditional Instructions Zofran as needed for nausea. Plenty of fluids and rest. Continue your Protonix. Follow-up with your primary care physician with any further bleeding or return to the emergency department.[facility] Work Phone: Reason for referral (narrative)No reason for referral information availableWOhio [facility] Work Phone: Summary Purpose Family History No [...] No February 29, 2020 1:05pm Power of Water Leak Repairer No February 28 1:05pm Advance Directive Response Recorded Date/ Time Advance Directives No May 01, 2014 9:39am Living Will No June 21 7:32pm Power of Water Leak Repairer No June 21, 2023 7:32pm Advance Directive Response Recorded Date/ Time Advance Directives No May 01, 2014 9:39am Living Will No December 14, 2023 12:52pm Power of Water Leak Repairer No December 13 12:52pm Advance Directive Response Recorded Date/ Time Advance Directives No May 01, 2014 9:39am Living Will No December 16, 2023 10:43am Power of Water Leak Repairer No December 15 10:43am Advance Directive Response Recorded Date/ Time Advance Directives No May 01, 2014 9:39am Living Will No December 17, 2023 12:59pm Power of Water Leak Repairer No December 16 12:59pm Advance Directive Response Recorded Date/ Time Living Will No December 17, 2023 12:59pm Do you have a Healthcare Power of Water Leak Repairer? No December 17, 2023 12:59pm Advance Directives No May 01, 2014 9:39am Advance Directive Response Recorded Date/ Time Living Will No December 17, 2023 12:59pm Do you have a Healthcare Power of Water Leak Repairer? No December 17, 2023 12:59pm Do you have a Healthcare Power of Water Leak Repairer? No February 07, 2025 9:20am Advance Directives No May 01, 2014 9:39am Advance Directive Response Recorded Date/ Time Living Will No December 17, 2023 12:59pm Do you have a Healthcare Power of Water Leak Repairer? No December 17, 2023 12:59pm Do you have a Healthcare Power of Water Leak Repairer? No February 07, 2025 9:20am Do you have a Healthcare Power of Water Leak Repairer? No March 31, 2025 3:56pm Advance Directives No May 01, 2014 9:39am [...] OP LABS January 18, 2025 2:19p m Chief Complaint Admit Date LEFT ANKLE SPRAIN/LEFT FOOT PAIN December 102024 12:27pm MURMUR December 23, 2024 12: 53pm PRE OP LABS January 18, 2025 2:19p m E ORDER February 07, 2025 12:42 pm Dresser of bone marrow aspirate Tarah starks February 21, 2025 5:46am Reason for Visit Admit Date Cavus deformity of left foot February 21, 2025 5:46am Other specified congenital deformities o f feet February 21, 2025 5:46am Pain in left foot February 21, 2025 5:46 am Primary osteoarthritis, left ankle and f oot February 21, 2025 5:46am Chief Complaint Admit Date LEFT ANKLE SPRAIN/LEFT FOOT PAIN December 102024 12:27pm MURMUR December 23, 2024 12: 53pm PRE OP LABS January 18, 2025 2:19p m E ORDER February 07, 2025 12:42 pm Chief Complaint Admit Date LEFT ANKLE SPRAIN/LEFT FOOT PAIN December 102024 12:27pm MURMUR December 23, 2024 12: 53pm PRE OP LABS January 18, 2025 2:19p m E ORDER February 07, 2025 12:42 pm Dresser of bone marrow aspirate Tarah starks February 21, 2025 5:46am Amb Documentation March 13, 2025 1:07p m NAUSEA/VOMITING March 31, 2025 3:31 pm Additional Source Comments INFORMATION SOURCE (unrecogn ized section and content) DATE CREATED AUTHOR 01/04/2019 [facility] DATE CREATED AUTHOR AUTHOR'S ORGANIZ ATION 01/04/2019 [facility] dical Center DATE CREATED AUTHOR AUTHOR'S ORGANIZ ATION 04/09/2025 [facility] Goals (unrecognized section and content) Goals may [...] January 18, 2025 End: January 18, 2025 Team Status: Inactive Member Role Status Dates Dr. Ginna Kowalski MD Primary Care Provider Active Start: February 07, 2025 End: February 07, 2025 Dr. Saul Vaca MD Attending Provider Active Start: February 07, 2025 End: February 07, 2025 Dr. Saul Vaca MD Referring Provider Active Start: February 07, 2025 End: February 07, 2025 Team Status: Inactive Member Role Status Dates Dr. Ginna Kowalski MD Primary Care Provider Active Start: February 21, 2025 End: February 21, 2025 Dr. Markel Leyva DPM Attending Provider Active Start: February 21, 2025 End: February 21, 2025 Team Status: Active Member Role/Relationship Status Dates Dr. Ginna Kowalski MD Primary Care Provider Active Team Status: Inactive Member Role/Relationship Status Dates Dr. Ginna Kowalski MD Primary Care Provider Active Start: December 19, 2024 End: December 19, 2024 Dr. Markel Leyva DPM Attending Provider Active Start: December 19, 2024 End: December 19, 2024 Dr. Markel Leyva DPM Referring Provider Active Start: December 19, 2024 End: December 19, 2024 Team Status: Inactive Member Role/Relationship Status Dates Dr. Ginna Kowalski MD Primary Care Provider Active Start: December 23, 2024 End: December 23, 2024 Dr. Ginna Kowalski MD Attending Provider Active Start: December 23, 2024 End: December 23, 2024 Dr. Ginna Kowalski MD Referring Provider Active Start: December 23, 2024 End: December 23, 2024 Team Status: Active Member Role/Relationship Status Dates Dr. Ginna Kowalski MD Primary Care Provider Active Start: December 23, 2024 Dr. Kam Fonseca MD Attending Provider Active S tart: December 23, 2024 Team Status: Inactive Member Role/Relationship Status Dates Dr. Ginna Kowalski MD Primary Care Provider Active Start: January 18, 2025 End: January 18, 2025 Dr. Ginna Kowalski MD Attending Provider Active Start: January 18, 2025 End: January 18, 2025 Team Status: Inactive Member Role/Relationship Status Dates Dr. Ginna Kowalski MD Primary Care Provider Active Start: February 07, 2025 End: February 07, 2025 Dr. Saul Vaca MD Attending Provider Active Start: February 07, 2025 End: February 07, 2025 Dr. Saul Vaca MD Referring Provider Active Start: February 07, 2025 End: February 07, 2025 Team Status: Inactive Member Role/Relationship Status Dates Dr. Ginna Kowaslki MD Primary Care Provider Active Start: February 21, 2025 End: February 21, 2025 Dr. Markel Leyva DPM Attending Provider Active Start: February 21, 2025 End: February 21, 2025 Team Status: Active Member Role/Relationship Status Dates Dr. Ginna Kowalski MD Primary Care Provider Active Start: March 13, 2025 Emmie Ramirez CIVIL SERVICE WORKER, CIVIL SERVICE WORKER-C Attending Provider Active Start: March 13, 2025 Team Status: Inactive Member Role/Relationship Status Dates Dr. Ginna Kowalski MD Primary Care Provider Active Start: March 31, 2025 End: March 31, 2025 Dr. Per Marrero MD Emergency Provider Active S tart: March 31, 2025 End: March 31, 2025 FOR RECORDS PERTAINING TO PATIENTS WHO [...] BE BASED ON THE PRIMARY CLINICAL RECORDS. [employer] [facility]. provides no warranty or guarantee of the accuracy or completeness of information in this document.
[2025-05-09 19:35] LABS: Vitamin D,25 Hydroxy 27.9 ng/mL (30-100)
== END 2025-05-08 17:22 | disposition home or self-care (01) ==
PROVIDERS: Emergency Provider Emergency Medicine; PCP Family Medicine; Visit Provider Emergency Medicine
DX: M79.672 Pain in left foot (principal); G89.18 Other acute postprocedural pain; I10 Essential (primary) hypertension; K21.9 Gastro-esophageal reflux disease without esophagitis; F17.210 Nicotine dependence, cigarettes, uncomplicated; Z79.51 Long term (current) use of inhaled steroids; Z79.899 Other long term (current) drug therapy
CPT/HCPCS: 73630; 80053; 82306; 85025; 85652; 86140; 93971; 96374; 96375; 99283; A4216; J2405

== ENCOUNTER → 2025-06-28 | Outpatient (CLI) | payer OTHER, SELFPAY ==
--- OUTSIDE RECORDS SUMMARY | 2025-06-28 08:22 | XMS RPT_ITS | CCD ---
Author Organization [facility] Care Team Providers Care Secretary To The Vice President Name Role Phone Marysol Juarez Unavailable Milli [...] Unavailable Dr. Leidy Crawford Primary Care Provider [phone] Dr. Leidy Crawford Referring Provider [phone] Aviva ZUÑIGA, YOGESH Priest Attending Provider Dex VAZQUEZ, Dr. Chacko Primary Care Provider Gordon DPM, Dr. Jean Baptiste Attending Provider Gordon DPM, Dr. Jean Baptiste Referring Provider Dex VAZQUEZ, Dr. Chacko Attending Provider Dex VAZQUEZ, Dr. Chacko Referring Provider Marian VAZQUEZ, Dr. Humphrey Attending Provider Nola VAZQUEZ, Dr. Hughes Attending Provider Nola VAZQUEZ, Dr. Hughes Referring Provider James SEXUAL ABUSE COUNSELLOR-C, Emmie Attending Provider Janes VAZQUEZ, Dr. Albarado Emergency Provider Dxe VAZQUEZ, Dr. Chacko Primary Care Provider Dex VAZQUEZ, Dr. Chacko Attending Provider Gordon DPM, Dr. Jean Baptiste Attending Provider Janes VAZQUEZ, Dr. Albarado Attending Provider Christian SALAZAR, Dr. Torres Emergency Provider [phone] Miedel, Ginna Primary Care Unavailable Miedel, Ginna [...] Assessment, Health Risk Referring Unavaila ble James SEXUAL ABUSE COUNSELLOR, Emmie Attending Unavailable Miedel, Ginna Primary Care Unavailable Panda Ricks Attending Unavailable Melissa Gonzales Referring Unavailable Miedel, Ginna Primary Care Unavailable Kam Fonseca Attending Unavailable Miedel, Ginna Primary Care Unavailable Gordon Markel Attending Unavailable Gordon, Markel Referring Unavailable Miedel, Ginna Primary Care Unavailable [facility] Ginna Primary Care Unavailable Ginna Kowalski Attending Unavailable TnserenaAngelah Referring Unavailable Per Marrero Attending Unavailable [facility] Primary Care Unavailable Melissa Gonzales Attending Unavailable [facility] Ginna Primary Care Unavailable Allergies Allergy Classification Reported Allergen(s) Allergy Type Date of Onset Reaction(s) Facility (20 sources) acetaminophen / oxyCODONE drug allergy 4 [facility] Work Phone: (20 sources) QUEtiapine drug allergy 6 throat and facial swelling [facility] Work Phone: (2 sources) Acetaminophen / HYDROcodone; Translations: [HYDROCODONE-ACET AMINOPHEN] Drug Allergy 2 [facility] Repository (2 sources) Acetaminophen / oxyCODONE; Translations: [OXYCODONE-ACETAM INOPHEN] Drug Allergy 8 [facility] Repository (12 sources) dilTIAZem Drug Allergy 0 Leg swelling [facility] (12 sources) gabapentin Drug Allergy 0 Edema [facility] (6 sources) oxyCODONE; Translations: [oxycodone HCl] Drug Allergy 0 Anaphylaxis [facility] (1 source) dilTIAZem Drug Allergy 5 [facility] Repository (1 source) gabapentin Drug Allergy 5 [facility] Repository Medications Current Medications Medication Drug Class(es) [...] System Stimulant, Methylxanthine Start: 02-07-2025 Butalbital-Acetami nop-Caf-Cod 80-164-07-30 mg capsule Active 1 NMA PO Q4H as needed for pain February 07, 2025 12:00am Start: 01-13-2016 FIORICET/CODEI NE 64-390-70-30 MG CAPS 1 tablet by mouth as needed for migraines QFLHWNUANM-JIDB-TGYA-COD [id number] Ana Laura SUTTONC Start: 01-13-2016 FIORICET/CODEI NE 85-876-97-30 MG CAPS 1 tablet by mouth as needed for migraines IQUFIFXZRO-QWDX-COAI-COD 99510010575 Ana Laura SUTTONC ascorbic acid 1000 mg [...] 1 tablet by mouth daily GABAPENTIN ENACARBIL [id number] Ana Laura SUTTONC Start: 01-13-2016 take 1 tablet by pipo th once daily HORIZANT 600 MG CR-TABS 1 tablet by mouth daily GABAPENTIN ENACARBIL 44695658371 Ana Laura Salamanca PA-C ibuprofen 200 mg [...] Start: 02-07-2025 take 2 tablets by mo [facility] every eight hours as needed for nausea [...] 1 tablet by mouth daily PANTOPRAZOLE SODIUM [id number] Ana Laura Salamanca PA-C Start: 01-13-2016 take 1 tablet by pipo th once daily PROTONIX 40 MG PACK 1 tablet by mouth daily PANTOPRAZOLE SODIUM 24466679520 Ana Laura Salamanca PA-C Start: 05-01-2014 End: 01-13-2016 PROTONIX 20 MG TBEC twice da manpreet PANTOPRAZOLE SODIUM 05747479729 Marysol Juarez promethazine hydrochloride 25 mg oral [...] injection as needed for migraines SUMATRIPTAN SUCCINATE [id number] Ana Laura Salamanca PA-C Start: 01-13-2016 IMITREX 6 MG/0 .5ML SOLN 1 injection as needed for migraines SUMATRIPTAN SUCCINATE 65034545425 Ana Laura Salamanca PA-C Completed/Discontinued Medications Medication [...] AERS 2 puffs twice daily ALBUTEROL SULFATE [id number] Ana Laura Salamanca PA-C Start: 01-13-2016 PROAIR HFA 108 (90 Base) MCG/ACT AERS 2 puffs twice daily ALBUTEROL SULFATE 33876667109 Ana Laura Salamanca PA-C Start: 05-01-2014 Albuterol [...] puff twice daily BUDESONIDE-FORMOTER OL FUMARATE AERO 88449429994 Marysol Juarez Start: 05-01-2014 End: 01-13-2016 SYMBICORT AERO 1 puff twice daily BUDESONIDE-FORMOTEROL FUMARATE AERO 92843835055 Ana Laura Salamanca PA-C Start: 05-01-2014 SYMBICORT AERO 1 puff twice daily BUDESONIDE-FORMOTEROL FUMARATE AERO [id number] Marysol Juarez Start: 05-01-2014 End: 01-13-2016 SYMBICORT AERO 1 puff twice daily BUDESONIDE-FORMOTEROL FUMARATE AERO 37330140390 Ana Laura Salamanca PA-C celecoxib 200 mg oral capsule (20 sources) Nonsteroidal Anti-inflammatory Drug Start: 05-01-2014 End: 01-13-2016 take 1 capsule by mouth once daily CELEBREX 200 MG CAPS 1 capsule by mouth daily CELECOXIB 87682553847 Ana Laura Salamanca PA-C citalopram 10 mg oral tablet (20 sources) Serotonin Reuptake Inhibitor Start: 05-01-2014 End: 01-13-2016 CELEXA 10 MG TABS daily CITALOPRAM HYDROBROMIDE 23792376453 Ana Laura Salamanca PA-C clindamycin 150 mg [...] TABS 1 tablet by mouth MAGNESIUM OXIDE 88209137286 Ana Laura Salamanca PA-C meloxicam 15 mg [...] 1 tablet by mouth daily MULTIPLE VITAMINS-MINERALS 66195708644 Ana Laura Salamanca PA-C MULTIPLE VITAMINS-MINERALS (15 sources) Start: 01-13-2016 take 1 tablet by mouth once daily ONE DAILY MULTIVITAMIN WOMEN TABS 1 tablet by mouth daily MULTIPLE VITAMINS-MINERALS 24546549229 Ana Laura Salamanca PA-C Start: 01-13-2016 take 1 tablet by pipo once daily ONE DAILY MULTIVITAMIN WOMEN TABS 1 tablet by mouth daily MULTIPLE VITAMINS-MINERALS 36335924670 Ana Laura Salamanca PA-C potassium chloride 10 [...] as need for muscle cramps POTASSIUM CHLORIDE 66619860852 Ana Laura Salamanca PA-C predniSONE 20 mg oral tablet (20 sources) Corticosteroid Start: 01-13-2016 PREDNISONE 20 MG TABS 1 tablet by mouth as needed for arthritis pain PREDNISONE 88854486096 Ana Laura Salamanca PA-C 24 hr propranolol [...] 1 MG TABS every night ROPINIROLE HCL 31950226657 Marysol Juarez 24 hr rotigotine 0.125 mg/hr transdermal system (20 sources) Start: 01-13-2016 NEUPRO 3 MG/24HR PT24 1 patch every 24 hours ROTIGOTINE 72487001703 Ana Laura Salamanca PA-C Start: 01-13-2016 NEUPRO 3 MG/24 HR PT24 1 patch every 24 hours ROTIGOTINE 66328671700 Ana Laura Salamanca PA-C B COMPLEX VITAMINS (20 sources) Start: 01-13-2016 take 1 tablet by mouth once daily VITAMIN B COMPLEX TABS 1 tablet by mouth daily B COMPLEX VITAMINS 57051140563 Ana Laura Salamanca PA-C Start: 01-13-2016 take 1 tablet by pipo th once daily VITAMIN B COMPLEX TABS 1 tablet by mouth daily B COMPLEX VITAMINS 52098183257 Ana Laura Salamanca PA-C Problems Active Problems [...] PTon 05-14-2025 Inital Evaluation (1) - PT [facility] [address] [place] [address] [address] [place] [address] / REHABILITATION SERVICES INITIAL EVALUATION MR#: [id number] Acct: [id number] Name: DARWIN PORTILLO Rep #: [id number] : 1965 60 From: Yusra LEE Referring Dr.: Dr. Markel Leyva DPM Status: R EG RCR Insurance: [employer] SELF PAY INSURANCE Patient's Visit Information Visit [...] in therapy with Dr at her appt [facility]. 3X/ week for 8 weeks for L [...] To improve (more content not included)... Normal [facility] Vitamin D,25 Hydroxyon 05-09 Vitamin D 25-OH 27.9 ng/mL Low 30-100 [facility] Comment on above: Result Comment: Mel min D Status Deficiency: <20 ng/mL (50nmol/L) Insufficiency: 20-30 ng/mL (50-75 nmol/L) Sufficiency: 30-100 ng/mL (75-250 nmol/L) Toxicity: >100 ng/mL (>250 nmol/L) Performed By: #### L 506.1001, L500.4050, L101.9900, L100.0100, L501.6710 ####[facility] [address] [place], [address] Absolute lymphocyte countOrd ered By: Melissa Gonzales on 05-08-2025 Lymphocytes Auto (Unsp spec) [#/Vol] 2.65 10*3/uL 0.83-4.51 [facility] Absolute neutrophil countOrd ered By: Melissa Gonzalse on 05-08-2025 Neutrophils (Bld) [#/Vol] 5.6 10*3/uL 2.0-7.7 [facility] Anion gap in Serum or Plasma Ordered By: Melissa Gonzales on 05-08-2025 Anion gap [Moles/Vol] 14 mmol/L 5-15 [facility] Automated lymphocyte count a s percentage of total leukocytesOrdered By: Melissa Gonzales on 05-08-2025 Lymphocytes/100 WBC Auto (Unsp spec) 29.9 % 19-41 [facility] BUN/creatinine ratioOrdered By: Melissa Gonzales on 05-08-2025 Urea nitrogen/Creatinine [Mass ratio] 10.5 mg/mg 10-20 [facility] Basophil percentageOrdered B y: Melissa Gonzales on 05-08-2025 Basophils/100 WBC (Bld) 0.8 % 0-1 [facility] Bilirubin, totalOrdered By: Melissa Gonzales on 05-08-2025 Bilirubin [Mass/Vol] 0.22 mg/dL 0.00-1.30 [facility] CBC W/Diff, Automatedon 04-12 Absolute Lymph 2.65 X10 3/uL Normal 0.83-4.51 [facility] Comment on above: Performed By: #### L 506.1001, L500.4050, L101.9900, L100.0100, L501.6710 ####[facility] [address] [place], [address] Absolute Neut 5.6 X10 3/uL Normal 2.0-7.7 [facility] Comment on above: Performed By: #### L 506.1001, L500.4050, L101.9900, L100.0100, L501.6710 ####[facility] [address] [place], [address] Basophils/100 WBC (Bld) 0.8 % Normal 0-1 [facility] Comment on above: Performed By: #### L 506.1001, L500.4050, L101.9900, L100.0100, L501.6710 ####[facility] [address] [place], [address] Eosinophils/100 WBC (Bld) 0.8 % Normal 0-5 [facility] Comment on above: Performed By: #### L 506.1001, L500.4050, L101.9900, L100.0100, L501.6710 ####[facility] [address] [place], [address] Erythrocyte distribution width (RBC) [Ratio] 13.0 % Normal 11.6-14.6 [facility] Comment on above: Performed By: #### L 506.1001, L500.4050, L101.9900, L100.0100, L501.6710 ####[facility] [address] [place], [address] Hematocrit (Bld) [Volume fraction] 42.7 % Normal 37-47 [facility] Comment on above: Performed By: #### L 506.1001, L500.4050, L101.9900, L100.0100, L501.6710 ####[facility] [address] [place], [address] Hemoglobin (Bld) [Mass/Vol] 14.4 g/dL Normal 12.0-15.0 [facility] Comment on above: Performed By: #### L 506.1001, L500.4050, L101.9900, L100.0100, L501.6710 ####[facility] [address] [place], [address] IG% 0.300 Normal 0.0-0.9 [facility] Comment on above: Result Comment: IG% - Immature Granulocytes (promyelocytes, myelocytes and metamyelocytes) > 1% indicates that a LEFT SHIFT is Present. Performed By: #### L 506.1001, L500.4050, L101.9900, L100.0100, L501.6710 ####[facility] [address] [place], [address] Lymphocytes/100 WBC (Bld) 29.9 % Normal 19-41 [facility] Comment on above: Performed By: #### L 506.1001, L500.4050, L101.9900, L100.0100, L501.6710 ####[facility] [address] [place], [address] MCH (RBC) [Entitic mass] 32.1 pg High 27.0-32.0 [facility] Comment on above: Performed By: #### L 506.1001, L500.4050, L101.9900, L100.0100, L501.6710 ####[facility] [address] [place], [address] MCHC (RBC) [Mass/Vol] 33.7 g/dL Normal 32-36 [facility] Comment on above: Performed By: #### L 506.1001, L500.4050, L101.9900, L100.0100, L501.6710 ####[facility] [address] [place], [address] MCV (RBC) [Entitic vol] 95.1 fL Normal 81-99 [facility] Comment on above: Performed By: #### L 506.1001, L500.4050, L101.9900, L100.0100, L501.6710 ####[facility] [address] [place], [address] Monocytes/100 WBC (Bld) 5.4 % Normal 0-10 [facility] Comment on above: Performed By: #### L 506.1001, L500.4050, L101.9900, L100.0100, L501.6710 ####[facility] [address] [place], [address] Neutrophils/100 WBC (Bld) 62.8 % Normal 47-70 [facility] Comment on above: Performed By: #### L 506.1001, L500.4050, L101.9900, L100.0100, L501.6710 ####[facility] [address] [place], [address] Nucleated RBC (Bld) [#/Vol] 0 10*3/uL Normal 0-5 [facility] Comment on above: Performed By: #### L 506.1001, L500.4050, L101.9900, L100.0100, L501.6710 ####[facility] [address] [place], [address] Platelet mean volume (Bld) [Entitic vol] 9.0 fL Normal 6.2-12.0 [facility] Comment on above: Performed By: #### L 506.1001, L500.4050, L101.9900, L100.0100, L501.6710 ####[facility] [address] [place], [address] Platelets (Bld) [#/Vol] 401 10*3/uL Normal 150-450 [facility] Comment on above: Performed By: #### L 506.1001, L500.4050, L101.9900, L100.0100, L501.6710 ####[facility] [address] [place], [address] RBC (Bld) [#/Vol] 4.49 10*6/uL Normal 4.2-5.4 [facility] Comment on above: Performed By: #### L 506.1001, L500.4050, L101.9900, L100.0100, L501.6710 ####[facility] [address] [place], [address] RDW SD 45.6 fl High 35.1-43.9 [facility] Comment on above: Performed By: #### L 506.1001, L500.4050, L101.9900, L100.0100, L501.6710 ####[facility] [address] [place], [address] WBC (Bld) [#/Vol] 8.9 10*3/uL Normal 4.4-11.0 [facility] Comment on above: Performed By: #### L 506.1001, L500.4050, L101.9900, L100.0100, L501.6710 ####[facility] [address] [place], [address] CRPon 05-08-2025 C-REACTIVE PROT < 3.00 Normal 0.0-3.0 [facility] Comment on above: Performed By: #### L 506.1001, L500.4050, L101.9900, L100.0100, L501.6710 ####[facility] [address] [place], [address] Carbon dioxide, total [Moles /volume] in Central venous bloodOrdered By: Melissa Gonzales on 05-08-2025 CO2 [Moles/Vol] 22.7 mmol/L 21.0-32.0 [facility] Chloride assayOrdered By: Ervin Gonzales on 05-08-2025 Chloride [Moles/Vol] 104 mmol/L 98-108 [facility] Comprehensive Metabolic Prof ilon 05-08-2025 Albumin [Mass/Vol] 4.3 g/dL Normal 3.4-4.8 [facility] Comment on above: Performed By: #### L 506.1001, L500.4050, L101.9900, L100.0100, L501.6710 ####[facility] [address] [place], [address] Albumin/Globulin [Mass ratio] 1.3 {ratio} Normal 0.9-2.4 [facility] Comment on above: Performed By: #### L 506.1001, L500.4050, L101.9900, L100.0100, L501.6710 ####[facility] [address] [place], [address] ALK PHOS 103 U/L Normal 35-104 [facility] Comment on above: Performed By: #### L 506.1001, L500.4050, L101.9900, L100.0100, L501.6710 ####[facility] [address] [place], [address] ALT [Catalytic activity/Vol] 20 U/L Normal <=34 [facility] Comment on above: Performed By: #### L 506.1001, L500.4050, L101.9900, L100.0100, L501.6710 ####[facility] [address] [place], [address] AST [Catalytic activity/Vol] 19 U/L Normal <=31 [facility] Comment on above: Performed By: #### L 506.1001, L500.4050, L101.9900, L100.0100, L501.6710 ####[facility] [address] [place], [address] Bilirubin [Mass/Vol] 0.22 mg/dL Normal 0.00-1.30 [facility] Comment on above: Performed By: #### L 506.1001, L500.4050, L101.9900, L100.0100, L501.6710 ####[facility] [address] [place], [address] BUN/CRE 10.5 RATIO Normal 10-20 [facility] Comment on above: Performed By: #### L 506.1001, L500.4050, L101.9900, L100.0100, L501.6710 ####[facility] [address] [place], [address] Calcium [Mass/Vol] 9.5 mg/dL Normal 7.6-11.0 [facility] Comment on above: Performed By: #### L 506.1001, L500.4050, L101.9900, L100.0100, L501.6710 ####[facility] [address] [place], [address] Chloride [Moles/Vol] 104 mmol/L Normal 98-108 [facility] Comment on above: Performed By: #### L 506.1001, L500.4050, L101.9900, L100.0100, L501.6710 ####[facility] [address] [place], [address] CO2 [Moles/Vol] 22.7 mmol/L Normal 21.0-32.0 [facility] Comment on above: Performed By: #### L 506.1001, L500.4050, L101.9900, L100.0100, L501.6710 ####[facility] [address] [place], [address] Creatinine [Mass/Vol] 0.69 mg/dL Low 0.70-1.20 [facility] Comment on above: Performed By: #### L 506.1001, L500.4050, L101.9900, L100.0100, L501.6710 ####[facility] [address] [place], [address] GAP 14 Normal 5-15 [facility] Comment on above: Performed By: #### L 506.1001, L500.4050, L101.9900, L100.0100, L501.6710 ####[facility] [address] [place], [address] GFR/1.73 sq M.predicted among non-blacks MDRD (S/P/Bld) [Vol rate/Area] 99 mL/min/{1.73_m2} Normal >60 [facility] Comment on above: Result Comment: mL/m in/1.73m2 CKD-EPI Creatinine Equation (2020) Performed By: #### L 506.1001, L500.4050, L101.9900, L100.0100, L501.6710 ####[facility] [address] [place], [address] Globulin (S) [Mass/Vol] 3.3 g/dL Normal 2.2-4.2 [facility] Comment on above: Performed By: #### L 506.1001, L500.4050, L101.9900, L100.0100, L501.6710 ####[facility] [address] [place], [address] Glucose [Mass/Vol] 96 mg/dL Normal 70-99 [facility] Comment on above: Performed By: #### L 506.1001, L500.4050, L101.9900, L100.0100, L501.6710 ####[facility] [address] [place], [address] Potassium [Moles/Vol] 3.9 mmol/L Normal 3.3-5.1 [facility] Comment on above: Performed By: #### L 506.1001, L500.4050, L101.9900, L100.0100, L501.6710 ####[facility] [address] [place], [address] Sodium [Moles/Vol] 140 mmol/L Normal 133-145 [facility] Comment on above: Performed By: #### L 506.1001, L500.4050, L101.9900, L100.0100, L501.6710 ####[facility] [address] [place], [address] T PROT 7.7 g/dL Normal 5.9-8.4 [facility] Comment on above: Performed By: #### L 506.1001, L500.4050, L101.9900, L100.0100, L501.6710 ####[facility] [address] [place], [address] Urea nitrogen [Mass/Vol] 7 mg/dL Normal 4-19 [facility] Comment on above: Performed By: #### L 506.1001, L500.4050, L101.9900, L100.0100, L501.6710 ####[facility] [address] [place], [address] Emergency Department Summary on 05-08-2025 Emergency Department Summary [facility] Medical Records Department [address] [place] [address] Emergency Department Summary 05/08/25 MR#: [id number] Acct: [id number] Name: DARWIN PORTILLO Rep #: [id number] : 1965 60 From: Melissa Gonzales DO [...] over the past 2 to 3 days. [facility] Medical History Wears glasses Post-menopausal Rheumatoid arthritis [...] 1 - 2 puff Inhalation Q4H PRN GA N 05/01/14 02/20/25 History aerosol inhaler Asthma [...] ( 06/15 (more content not included)... Normal [facility] Eosinophil percentageOrdered By: Melissa Gonzales on 05-08-2025 Eosinophils/100 WBC (Bld) 0.8 % 0-5 [facility] Erythrocyte Sed Rateon 05-08 SED RATE 21 mm/hr Normal 0-30 [facility] Comment on above: Performed By: #### L 506.1001, L500.4050, L101.9900, L100.0100, L501.6710 ####[facility] [address] [place], [address] Erythrocyte distribution wid th ratioOrdered By: Melissa Gonzales on 05-08-2025 Erythrocyte distribution width (RBC) [Ratio] 13.0 % 11.6-14.6 [facility] Erythrocyte distribution wid th standard deviationOrdered By: Melissa Gonzales on 05-08-2025 Erythrocyte distribution width (RBC) [Ratio] 45.6 fl High 35.1-43.9 [facility] Erythrocyte sedimentation ra teOrdered By: Melissa Gonzales on 05-08-2025 ESR (Bld) [Velocity] 21 mm/h 0-30 [facility] Foot min 3 Viewson Foot min 3 Views [facility] Imaging Services [address] [place] [address] Foot min 3 Views MR#: [id number] Acct: [id number] Name: DARWIN PORTILLO Rep #: [id number] : 1965 F 60 From: Robin vargas MD PCP: Dr. Ginna Kowalski MD Status: REG ER Study: Foot min 3 Views Date of Exam: 05/08/25 Exam# [id number] Ordering Dr: Melissa Gonzales DO PROCEDURE: FOOT [...] at the 1st tarsometatarsal joint. Reading Location: [id number] CC: Dr. Melissa Gonzales DO; Dr. Ginna Kowalski MD Travel Professional: Signed Normal [facility] Glomerular filtration rate ( GFR) estimation/1.73 sq m using serum, plasma, or whole bOrdered By: Melissa Gonzales on 05-08-2025 GFR/1.73 sq M.predicted among non-blacks MDRD (S/P/Bld) [Vol rate/Area] 99 mL/min/{1.73_m2} >60 [facility] Comment on above: mL/min/1.73m2 CKD-EP I Creatinine Equation (2020) Hematocrit Auto (Bld) [Volum e fraction]Ordered By: Melissa Gonzales on 05-08-2025 Hematocrit (Bld) [Volume fraction] 42.7 % 37-47 [facility] Hemoglobin measurementOrdere d By: Melissa Gonzales on 05-08-2025 Hemoglobin (Bld) [Mass/Vol] 14.4 g/dL 12.0-15.0 [facility] Immature granulocytes/100 WB C Auto (Bld)Ordered By: Melissa Gonzales on 05-08-2025 Immature granulocytes/100 WBC (Bld) 0.300 % 0.0-0.9 [facility] Comment on above: IG% - Immature Granu locytes (promyelocytes, myelocytes and metamyelocytes) > 1% indicates that a LEFT SHIFT is Present. Laboratory - Chemistry and C hemistry - challengeOrdered By: Melissa Gonzales on 05-08-2025 AST [Catalytic activity/Vol] 19 U/L <32 [facility] MCV (mean corpuscular volume ) determinationOrdered By: Melissa Gonzales on 05-08-2025 MCV (RBC) [Entitic vol] 95.1 fL 81-99 [facility] Mean corpuscular hemoglobin (MCH) determinationOrdered By: Melissa Gonzales on 05-08-2025 MCH (RBC) [Entitic mass] 32.1 pg High 27.0-32.0 [facility] Mean corpuscular hemoglobin concentration (MCHC) determinationOrdered By: Melissa Gonzales on 05-08-2025 MCHC (RBC) [Mass/Vol] 33.7 g/dL 32-36 [facility] Mean platelet volume determi nationOrdered By: Melissa Gonzales on 05-08-2025 Platelet mean volume (Bld) [Entitic vol] 9.0 fL 6.2-12.0 [facility] Monocyte percentageOrdered B y: Melissa Gonzales on 05-08-2025 Monocytes/100 WBC (Bld) 5.4 % 0-10 [facility] Neutrophil percentageOrdered By: Melissa Gonzales on 05-08-2025 Neutrophils/100 WBC (Bld) 62.8 % 47-70 [facility] Nucleated red blood cell per centageOrdered By: Melissa Gonzales on 05-08-2025 Nucleated RBC/100 WBC (Bld) [Ratio] 0 % 0-5 [facility] Platelet countOrdered By: Ervin Gonzales on 05-08-2025 Platelets (Bld) [#/Vol] 401 10*3/uL 150-450 [facility] Potassium measurement (mass/ volume)Ordered By: Melissa Gonzales on 05-08-2025 Potassium (Unsp spec) [Mass/Vol] 3.9 mmol/L 3.3-5.1 [facility] RBC Auto (Bld) [#/Vol]Ordere d By: Melissa Gonzales on 05-08-2025 RBC (Bld) [#/Vol] 4.49 10*6/uL 4.2-5.4 [facility] Serum creatinine measurement (mass/volume)Ordered By: Melissa Gonzales on 05-08-2025 Creatinine [Mass/Vol] 0.69 mg/dL Low 0.70-1.20 [facility] Serum globulin measurementOr dered By: Melissa Gonzales on 05-08-2025 Globulin (S) [Mass/Vol] 3.3 g/dL 2.2-4.2 [facility] Serum glucose measurement (m ass/volume)Ordered By: Melissa Gonzales on 05-08-2025 Glucose [Mass/Vol] 96 mg/dL 70-99 [facility] Serum or plasma C reactive p rotein measurement (mass/volume)Ordered By: Melissa Gonzales on 05-08-2025 CRP [Mass/Vol] mg/L 0.0-3.0 [facility] Serum or plasma alanine bro otransferase (ALT) measurementOrdered By: Melissa Gonzales on 05-08-2025 ALT [Catalytic activity/Vol] 20 U/L <35 [facility] Serum or plasma albumin laura urement (mass/volume)Ordered By: Melissa Gonzales on 05-08-2025 Albumin [Mass/Vol] 4.3 g/dL 3.4-4.8 [facility] Serum or plasma albumin/glob ulin mass ratioOrdered By: Melissa Gonzales on 05-08-2025 Albumin/Globulin [Mass ratio] 1.3 {ratio} 0.9-2.4 [facility] Serum or plasma alkaline sabino sphatase measurementOrdered By: Melissa Gonzales on 05-08-2025 ALP [Catalytic activity/Vol] 103 U/L 35-104 [facility] Serum or plasma calcium laura urement (mass/volume)Ordered By: Melissa Gonzales on 05-08-2025 Calcium [Mass/Vol] 9.5 mg/dL 7.6-11.0 [facility] Serum or plasma urea nitroge n measurement (mass/volume)Ordered By: Melissa Gonzales on 05-08-2025 Urea nitrogen [Mass/Vol] 7 mg/dL 4-19 [facility] Sodium levelOrdered By: Denia Gonzales on 05-08-2025 Sodium [Moles/Vol] 140 mmol/L 133-145 [facility] Total proteinOrdered By: Madalyn Gonzales on 05-08-2025 Protein [Mass/Vol] 7.7 g/dL 5.9-8.4 [facility] Venous Duplex US, Unilateral on 05-08-2025 Venous Duplex US, Unilateral [facility] [address] [address] Venous Duplex US, Unilateral 05/08/25 1405 MR#: [id number] Acct: [id number] Name: DARWIN PORTILLO Rep #: [id number] : 1965 60 From: Panda Ricks MD [...] to T/P Trunk is compressible. 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 PTV is compressible. LT PerV is compressible. VL/Venous Duplex US, Unilateral Interpretation Summary Deep veins of the left lower extremity are patent and compressible segmentally. There is no evidence of left lower extremity deep vein thrombosis. The left great saphenous vein appears patent and compressible segmentally. Ordering Physician: Melissa Gonzales Referring Physician: Ginna Kowalski Performed By: Alvaro Urbina, RVT 05/13/25740 Date Panda Ricks MD CC: Dr. Melissa Gonzales DO; Dr. Ginna Kowalski MD Date Dictated: 05/08/251404 Date Transcribed: 05/13/25740 Travel Professional: Signed Normal [facility] White blood cell (WBC) count Ordered By: Melissa Gonzales on 05-08-2025 WBC (Bld) [#/Vol] 8.9 10*3/uL 4.4-11.0 [facility] Absolute lymphocyte countOrd ered By: Per Marrero on 03-31-2025 Lymphocytes Auto (Unsp spec) [#/Vol] 2.62 10*3/uL 0.83-4.51 [facility] Absolute neutrophil countOrd ered By: Per Marrero on 03-31-2025 Neutrophils (Bld) [#/Vol] 4.1 10*3/uL 2.0-7.7 [facility] Anion gap in Serum or Plasma Ordered By: Per Marrero on 03-31-2025 Anion gap [Moles/Vol] 14 mmol/L 5-15 [facility] Automated lymphocyte count a s percentage of total leukocytesOrdered By: Per Marrero on 03-31-2025 Lymphocytes/100 WBC Auto (Unsp spec) 35.6 % - [facility] BUN/creatinine ratioOrdered By: Per Marrero on 03-31-2025 Urea nitrogen/Creatinine [Mass ratio] 15.4 mg/mg 10- [facility] Basophil percentageOrdered B y: Per Marrero on 03-31-2025 Basophils/100 WBC (Bld) 0.8 % 0-1 [facility] Bilirubin, totalOrdered By: Per Marrero on 03-31-2025 Bilirubin [Mass/Vol] 0.21 mg/dL 0.00-1.30 [facility] CBC W/Diff, Automatedon 03-12 Absolute Lymph 2.62 X10 3/uL Normal 0.83-4.51 [facility] Comment on above: Performed By: #### L 500.4050, L100.0100 #### [facility] Laboratory [address] [place], [address] Absolute Neut 4.1 X10 3/uL Normal 2.0-7.7 [facility] Comment on above: Performed By: #### L 500.4050, L100.0100 #### [facility] [address] [place], [address] Basophils/100 WBC (Bld) 0.8 % Normal 0-1 [facility] Comment on above: Performed By: #### L 500.4050, L100.0100 #### [facility] [address] [place], [address] Eosinophils/100 WBC (Bld) 1.1 % Normal 0-5 [facility] Comment on above: Performed By: #### L 500.4050, L100.0100 #### [facility] Laboratory [address] [place], [address] Erythrocyte distribution width (RBC) [Ratio] 13.3 % Normal 11.6-14.6 [facility] Comment on above: Performed By: #### L 500.4050, L100.0100 #### [facility] Laboratory [address] [place], [address] Hematocrit (Bld) [Volume fraction] 39.7 % Normal 37-47 [facility] Comment on above: Performed By: #### L 500.4050, L100.0100 #### [facility] Laboratory [address] [place], [address] Hemoglobin (Bld) [Mass/Vol] 13.3 g/dL Normal 12.0-15.0 [facility] Comment on above: Performed By: #### L 500.4050, L100.0100 #### [facility] [address] [place], [address] IG% 0.300 Normal 0.0-0.9 [facility] Comment on above: Result Comment: IG% - Immature Granulocytes (promyelocytes, myelocytes and metamyelocytes) > 1% indicates that a LEFT SHIFT is Present. Performed By: #### L 500.4050, L100.0100 #### [facility] Laboratory [address] [place], [address] Lymphocytes/100 WBC (Bld) 35.6 % Normal 19-41 [facility] Comment on above: Performed By: #### L 500.4050, L100.0100 #### [facility] Laboratory [address] [place], [address] MCH (RBC) [Entitic mass] 31.1 pg Normal 27.0-32.0 [facility] Comment on above: Performed By: #### L 500.4050, L100.0100 #### [facility] Laboratory [address] [place], [address] MCHC (RBC) [Mass/Vol] 33.5 g/dL Normal 32-36 [facility] Comment on above: Performed By: #### L 500.4050, L100.0100 #### [facility] Laboratory [address] [place], [address] MCV (RBC) [Entitic vol] 93.0 fL Normal 81-99 [facility] Comment on above: Performed By: #### L 500.4050, L100.0100 #### [facility] Laboratory [address] [place], [address] Monocytes/100 WBC (Bld) 6.9 % Normal 0-10 [facility] Comment on above: Performed By: #### L 500.4050, L100.0100 #### [facility] Laboratory [address] [place], [address] Neutrophils/100 WBC (Bld) 55.3 % Normal 47-70 [facility] Comment on above: Performed By: #### L 500.4050, L100.0100 #### [facility] Laboratory [address] [place], [address] Nucleated RBC (Bld) [#/Vol] 0 10*3/uL Normal 0-5 [facility] Comment on above: Performed By: #### L 500.4050, L100.0100 #### [facility] Laboratory [address] [place], [address] Platelet mean volume (Bld) [Entitic vol] 9.0 fL Normal 6.2-12.0 [facility] Comment on above: Performed By: #### L 500.4050, L100.0100 #### [facility] Laboratory [address] [place], [address] Platelets (Bld) [#/Vol] 333 10*3/uL Normal 150-450 [facility] Comment on above: Performed By: #### L 500.4050, L100.0100 #### [facility] Laboratory [address] [place], [address] RBC (Bld) [#/Vol] 4.27 10*6/uL Normal 4.2-5.4 [facility] Comment on above: Performed By: #### L 500.4050, L100.0100 #### [facility] Laboratory [address] [place], [address] RDW SD 45.1 fl High 35.1-43.9 [facility] Comment on above: Performed By: #### L 500.4050, L100.0100 #### [facility] [address] [place], [address] WBC (Bld) [#/Vol] 7.4 10*3/uL Normal 4.4-11.0 [facility] Comment on above: Performed By: #### L 500.4050, L100.0100 #### [facility] [address] [place], [address] Carbon dioxide, total [Moles /volume] in Central venous bloodOrdered By: Per Marrero on 03-31-2025 CO2 [Moles/Vol] 23.0 mmol/L 21.0-32.0 [facility] Chloride assayOrdered By: Ray Marrero on 03-31-2025 Chloride [Moles/Vol] 105 mmol/L 98-108 [facility] Comprehensive Metabolic Prof ilon 03-31-2025 Albumin [Mass/Vol] 4.3 g/dL Normal 3.4-4.8 [facility] Comment on above: Performed By: #### L 500.4050, L100.0100 #### [facility] Laboratory [address] [place], [address] Albumin/Globulin [Mass ratio] 1.5 {ratio} Normal 0.9-2.4 [facility] Comment on above: Performed By: #### L 500.4050, L100.0100 #### [facility] Laboratory [address] [place], [address] ALK PHOS 95 U/L Normal 35-104 [facility] Comment on above: Performed By: #### L 500.4050, L100.0100 #### [facility] [address] [place], [address] ALT [Catalytic activity/Vol] 25 U/L Normal <=34 [facility] Comment on above: Performed By: #### L 500.4050, L100.0100 #### [facility] [address] [place], [address] AST [Catalytic activity/Vol] 18 U/L Normal <=31 [facility] Comment on above: Performed By: #### L 500.4050, L100.0100 #### [facility] [address] [place], [address] Bilirubin [Mass/Vol] 0.21 mg/dL Normal 0.00-1.30 [facility] Comment on above: Performed By: #### L 500.4050, L100.0100 #### [facility] [address] [place], [address] BUN/CRE 15.4 RATIO Normal 10-20 [facility] Comment on above: Performed By: #### L 500.4050, L100.0100 #### [facility] [address] [place], [address] Calcium [Mass/Vol] 9.4 mg/dL Normal 7.6-11.0 [facility] Comment on above: Performed By: #### L 500.4050, L100.0100 #### [facility] [address] [place], [address] Chloride [Moles/Vol] 105 mmol/L Normal 98-108 [facility] Comment on above: Performed By: #### L 500.4050, L100.0100 #### [facility] [address] [place], [address] CO2 [Moles/Vol] 23.0 mmol/L Normal 21.0-32.0 [facility] Comment on above: Performed By: #### L 500.4050, L100.0100 #### [facility] [address] [place], [address] Creatinine [Mass/Vol] 0.63 mg/dL Low 0.70-1.20 [facility] Comment on above: Performed By: #### L 500.4050, L100.0100 #### [facility] [address] [place], [address] ECRCL 109.53 ml/min Normal 50-250 [facility] Comment on above: Performed By: #### L 500.4050, L100.0100 #### [facility] Laboratory [address] [place], [address] GAP 14 Normal 5-15 [facility] Comment on above: Performed By: #### L 500.4050, L100.0100 #### [facility] Laboratory [address] [place], [address] GFR/1.73 sq M.predicted among non-blacks MDRD (S/P/Bld) [Vol rate/Area] 102 mL/min/{1.73_m2} Normal >60 [facility] Comment on above: Result Comment: mL/m in/1.73m2 CKD-EPI Creatinine Equation (2020) Performed By: #### L 500.4050, L100.0100 #### [facility] Laboratory [address] [place], [address] Globulin (S) [Mass/Vol] 2.9 g/dL Normal 2.2-4.2 [facility] Comment on above: Performed By: #### L 500.4050, L100.0100 #### [facility] [address] [place], [address] Glucose [Mass/Vol] 90 mg/dL Normal 70-99 [facility] Comment on above: Performed By: #### L 500.4050, L100.0100 #### [facility] [address] [place], [address] Potassium [Moles/Vol] 3.8 mmol/L Normal 3.3-5.1 [facility] Comment on above: Performed By: #### L 500.4050, L100.0100 #### [facility] [address] [place], [address] Sodium [Moles/Vol] 142 mmol/L Normal 133-145 [facility] Comment on above: Performed By: #### L 500.4050, L100.0100 #### [facility] [address] [place], [address] T PROT 7.1 g/dL Normal 5.9-8.4 [facility] Comment on above: Performed By: #### L 500.4050, L100.0100 #### [facility] Laboratory [address], [address] Urea nitrogen [Mass/Vol] 10 mg/dL Normal 4-19 [facility] Comment on above: Performed By: #### L 500.4050, L100.0100 #### [facility] Laboratory [address] [place], [address] Emergency Department Summary on 03-31-2025 Emergency Department Summary [facility] Medical Records Department [address] [place] [address] Emergency Department Summary 03/31/25 MR#: [id number] Acct: [id number] Name: DARWIN PORTILLO Rep #: [id number] : 1965 60 From: Per Marrero MD [...] 1 - 2 puff Inhalation Q4H PRN GA N 05/01/14 02/20/25 History aerosol inhaler Asthma [...] chest pain (more content not included)... Normal [facility] Eosinophil percentageOrdered By: Per Marrero on 03-31-2025 Eosinophils/100 WBC (Bld) 1.1 % 0-5 [facility] Erythrocyte distribution wid th ratioOrdered By: Per Marrero on 03-31-2025 Erythrocyte distribution width (RBC) [Ratio] 13.3 % 11.6-14.6 [facility] Erythrocyte distribution wid th standard deviationOrdered By: Per Marrero on 03-31-2025 Erythrocyte distribution width (RBC) [Ratio] 45.1 fl High 35.1-43.9 [facility] Glomerular filtration rate ( GFR) estimation/1.73 sq m using serum, plasma, or whole bOrdered By: Per Marrero on 03-31-2025 GFR/1.73 sq M.predicted among non-blacks MDRD (S/P/Bld) [Vol rate/Area] 102 mL/min/{1.73_m2} >60 [facility] Comment on above: mL/min/1.73m2 CKD-EP I Creatinine Equation (2020) Hematocrit Auto (Bld) [Volum e fraction]Ordered By: Per Marrero on 03-31-2025 Hematocrit (Bld) [Volume fraction] 39.7 % 37-47 [facility] Hemoglobin measurementOrdere d By: Per Marrero on 03-31-2025 Hemoglobin (Bld) [Mass/Vol] 13.3 g/dL 12.0-15.0 [facility] Immature granulocytes/100 WB C Auto (Bld)Ordered By: Per Marrero on 03-31-2025 Immature granulocytes/100 WBC (Bld) 0.300 % 0.0-0.9 [facility] Comment on above: IG% - Immature Granu locytes (promyelocytes, myelocytes and metamyelocytes) > 1% indicates that a LEFT SHIFT is Present. Laboratory - Chemistry and C hemistry - challengeOrdered By: Per Marrero on 03-31-2025 AST [Catalytic activity/Vol] 18 U/L <32 [facility] MCV (mean corpuscular volume ) determinationOrdered By: Per Marrero on 03-31-2025 MCV (RBC) [Entitic vol] 93.0 fL 81-99 [facility] Mean corpuscular hemoglobin (MCH) determinationOrdered By: Per Marrero on 03-31-2025 MCH (RBC) [Entitic mass] 31.1 pg 27.0-32.0 [facility] Mean corpuscular hemoglobin concentration (MCHC) determinationOrdered By: Per Marrero on 03-31-2025 MCHC (RBC) [Mass/Vol] 33.5 g/dL 32-36 [facility] Mean platelet volume determi nationOrdered By: Per Marrero on 03-31-2025 Platelet mean volume (Bld) [Entitic vol] 9.0 fL 6.2-12.0 [facility] Monocyte percentageOrdered B y: Per Marrero on 03-31-2025 Monocytes/100 WBC (Bld) 6.9 % 0-10 [facility] Neutrophil percentageOrdered By: Per Marrero on 03-31-2025 Neutrophils/100 WBC (Bld) 55.3 % 47-70 [facility] Nucleated red blood cell per centageOrdered By: Per Marrero on 03-31-2025 Nucleated RBC/100 WBC (Bld) [Ratio] 0 % 0-5 [facility] Platelet countOrdered By: Ray Marrero on 03-31-2025 Platelets (Bld) [#/Vol] 333 10*3/uL 150-450 [facility] Potassium measurement (mass/ volume)Ordered By: Per Marrero on 03-31-2025 Potassium (Unsp spec) [Mass/Vol] 3.8 mmol/L 3.3-5.1 [facility] RBC Auto (Bld) [#/Vol]Ordere d By: Per Marrero on 03-31-2025 RBC (Bld) [#/Vol] 4.27 10*6/uL 4.2-5.4 [facility] Serum creatinine measurement (mass/volume)Ordered By: Per Marrero on 03-31-2025 Creatinine [Mass/Vol] 0.63 mg/dL Low 0.70-1.20 [facility] Serum globulin measurementOr dered By: Per Marrero on 03-31-2025 Globulin (S) [Mass/Vol] 2.9 g/dL 2.2-4.2 [facility] Serum glucose measurement (m ass/volume)Ordered By: Per Marrero on 03-31-2025 Glucose [Mass/Vol] 90 mg/dL 70-99 [facility] Serum or plasma alanine bro otransferase (ALT) measurementOrdered By: Per Marrero on 03-31-2025 ALT [Catalytic activity/Vol] 25 U/L <35 [facility] Serum or plasma albumin laura urement (mass/volume)Ordered By: Per Marrero on 03-31-2025 Albumin [Mass/Vol] 4.3 g/dL 3.4-4.8 [facility] Serum or plasma albumin/glob ulin mass ratioOrdered By: Per Marrero on 03-31-2025 Albumin/Globulin [Mass ratio] 1.5 {ratio} 0.9-2.4 [facility] Serum or plasma alkaline sabino sphatase measurementOrdered By: Per Marrero on 03-31-2025 ALP [Catalytic activity/Vol] 95 U/L 35-104 [facility] Serum or plasma calcium laura urement (mass/volume)Ordered By: Per Marrero on 03-31-2025 Calcium [Mass/Vol] 9.4 mg/dL 7.6-11.0 [facility] Serum or plasma urea nitroge n measurement (mass/volume)Ordered By: Per Marrero on 03-31-2025 Urea nitrogen [Mass/Vol] 10 mg/dL 4-19 [facility] Sodium levelOrdered By: Per Marrero on 03-31-2025 Sodium [Moles/Vol] 142 mmol/L 133-145 [facility] Total proteinOrdered By: Jose Marrero on 03-31-2025 Protein [Mass/Vol] 7.1 g/dL 5.9-8.4 [facility] White blood cell (WBC) count Ordered By: Per Marrero on 03-31-2025 WBC (Bld) [#/Vol] 7.4 10*3/uL 4.4-11.0 [facility] Oncology Visit Reporton Oncology Visit Report [facility] [address] [place] [address] OFFICE VISIT Date of Service: 03/13/25 1307 MR#: [id number] Acct: [id number] Name: DARWIN PORTILLO Rep #: [id number] : 1965 From: Emmie Ramirez NP SEXUAL ABUSE COUNSELLOR -C Age/Sex: 60/F Location: [facility] Status: Signed Unable Date 03/13/25 Patient: DARWIN [...] contact the lung cancer screening program at [facility] at with any further questions or concerns. Sincerely, Emmie Ramirez, INSIDE CONTRACTOR SALES-PLASTICS ENGINEERING TEACHER, AOCNP 03/13/25 1308 Date Emmie Ramirez NP SEXUAL ABUSE COUNSELLOR-C Cosigner Signature: Date (if applicable) CC: Dr. Ginna Kowalski MD Normal [facility] Bedside Glucoseon 02-21-2025 FINGERSTICK GLU 108 mg/dL High 74-106 [facility] Comment on above: Result Comment: JUAN C BAUM OF PATIENT CARE PER NURSING PROTOCOL Performed By: #### L 501.080 ####[facility] [address] [place], [address] Foot min 3 Viewson 5 Foot min 3 Views [facility] Imaging Services [address] [address] Foot min 3 Views MR#: [id number] Acct: [id number] Name: DARWIN PORTILLO Rep #: [id number] : 1965 F 60 From: Ramin Taveras MD PCP: Dr. Ginna Kowalski MD [place] [facility] [place] Study: Foot min 3 Views Date of Exam: 02/21/25 Exam# [id number] Ordering Dr: Markel Leyva DPM EXAM: XR [...] operative note for further details. Reading Location: [facility] CC: DPJudy Leyva; Dr. Ginna Kowalski MD Travel Professional: Signed Normal [facility] Gl[facility] deOrdered By: Markel Lyeva on 02-21-2025 Glucose [Mass/Vol] 108 mg/dL High 74-106 [facility] Comment on above: MANAGEMENT OF PATIEN T CARE PER NURSING PROTOCOL MR/POSTOP.ANEon 02-21-2025 [facility] [address] [place] [address] Anesthesia Postop Eval I 02/21/25 1238 MR#: [id number] Acct: [id number] Name: DARWIN PORTILLO Rep #: [id number] : 1965 60 From: Sheree Simpson CRNA PCP: Dr. Ginna Kowalski MD [place] [facility] [place] [place] Race: C Location: [place] [address] Anesthesia: Postop Eval I Current Vital Signs [...] completed: Yes 02/21/25 1238 Date Sheree Simpson APPLIANCES SAMPLE MAKER Cosigner Signature: Date CC: Signed Normal [facility] MR/[id number] 02-21-2025 [facility] Medical Records Department [address] [place] [address] Anesthesia Postop Eval II 02/21/25 1255 MR#: [id number] Acct: [id number] Name: DARWIN PORTILLO Rep #: [id number] : 1965 60 From: Edgardo Toth MD PCP: Dr. Ginna Kwoalski MD Status:REG SDC Y Race: C Location: [place] [address] Anesthesia Postop Eval I Sum Postop Eval Completion status Anesthesia document: Postop Eval 1 completed: Yes Anesthesia Postop Eval I Summary Anesthesia Postop Eval I Summary: Anesthesia Postop Eval I: Assessment Summary Airway patent Yes 02/21/25 12:38 APPLIANCES SAMPLE MAKER.HENRRYOBY Spontaneous unlabored Yes 02/21/25 12:38 APPLIANCES SAMPLE MAKER.HENRRYOBClifton respirations Mental status Awake,Calm 02/21/25 12:38 APPLIANCES SAMPLE MAKER.SKOBY nausea No 02/21/25 12:38 APPLIANCES SAMPLE MAKER.SKOBY Vomiting No 02/21/25 12:38 APPLIANCES SAMPLE MAKER.SKOBY Anesthesia Postop Eval I: Fluid Summary Crystalloid volume administer 1,200 02/21/25 12:38 APPLIANCES SAMPLE MAKER.SKOBY (ml) Colloids volume administered ( ml) Blood Product volume administered (ml) Total IV fluid infused 1,200 02/21/25 12:38 APPLIANCES SAMPLE MAKER.SKOBY Anesthesia Postop Eval I: Summary Notes Anesthesia Complication No 02/21/25 12:38 APPLIANCES SAMPLE MAKER.SKOBY Anesthesia Complication Comment: Post-operative progress note Anesthesia: Postop Eval II Evaluation Mental status: Awake Pain Level: 2 nausea: No Vomiting: No 02/21/25 1255 Date Edgardo Mayes Signature: Date CC: Signed Normal [facility] Operative Reporton 5 Operative Report [facility] Medical Records Department [address] [place] [address] Operative Report 02/21/25 0742 MR#: [id number] Acct: [id number] Name: DARWIN PORTILLO Judy Rep #: [id number] : 1965 60 From: Markel Leyva DPM PCP: Dr. Ginna Kowalski MD Status: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 Patient is well-known to my private office and has been treated conservatively for greater than 6 months due to her cavus foot deformity. 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 Normal [facility] Medical Records Department [address] [place] [address] PAT - Anesthesia 02/07/25 1808 MR#: [id number] Acct: [id number] Name: DARWIN PORTILLO Rep #: [id number] : 1965 60 From: Saul Vaca MD PCP: Dr. Ginna Kowalski MD [place] [facility] [place] C [place] [facility] [place] Pre-Assessment Diagnosis/Proposed Procedure Planned Operative Procedure(s): HARVEST OF BONE MARROW ASPIRATE CONCENTRATE,BONILLA OSTEOTOMY WITH LATERAL SHIFT OF LEFT CALCANEOUS WITH PERONEOUS LONGIS BREVIS TENDON TRANSFER.ENDOSCOPIC PLANTAR FASCIA RELEASE,DORSIFLEXION OSTEOTOMY OF THE FIRST METATARSAL,OSTEOTOMY OF THE LEFT TARSAL BONE. 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 Female Yes 02/07/25 09:20 HX of Motion [...] 12/17/23 12:56 Respiratory Assessment Respiratory Assessment - 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: Respiratory Tract Infection Hx - 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 Hx Respiratory Tract Infection No 02/07/25 09:20 STOP Sleep Apnea STOP Sleep Apnea - 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: STOP Sleep Apnea - 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 Hx Hypertension No: HYPOTENSION 02/07/25 09:20 Hx [...] Tobacco Use History Tobacco Use History - 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: Tobacco Use History - 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 Tobacco Use Cigarettes 07/19/21 08:09 Smoking Status Current every day smoker 02/07/25 09:20 Hx Tobacco Use Yes 02/07/25 09:20 Years Smoking Packs Smoked per Day Smoking Cessation Date was within the last 15 years Hx Smoking Cessation Date Hx Smoking Cessation Counseling Hematologic Medial History Hematologic Hx - 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 Normal [facility] Magnesiumon 02-07-2025 Magnesium [Mass/Vol] 2.2 mg/dL Normal 1.5-2.2 [facility] Comment on above: Performed By: #### L 501.1082 #### [facility] Laboratory [place], [address] Magnesium measurement (mass/ volume)Ordered By: Saul Vaca on 02-07-2025 Magnesium (Unsp spec) [Mass/Vol] 2.2 mg/dL 1.5-2.2 [facility] Nicotine Screen Bloodon 01-09 COTININE BLOOD 188.7 ng/mL Normal . [facility] Comment on above: Result Comment: This test was developed and its performance characteristics determined by [facility]. It has not been cleared or approved by the Food and Drug Administration. Cotinine levels greater than 20.0 are consistent with the use of tobacco or tobacco cessation products. Performed at: [address] [id number] Percussion Instrument Tuner: Natacha Hays MD, Phone: [phone] Performed By: #### L 3600.3400, L501.9985, L3410.9992 ####[facility] [address] [place], [place], [id number] NICOTINE BLOOD 10.3 ng/mL Normal . [facility] Comment on above: Result Comment: This test was developed and its performance characteristics determined by [facility]. It has not been cleared or approved by the Food and Drug Administration. Nicotine levels greater than 2.0 are consistent with the use of tobacco or tobacco cessation products. Performed By: #### L 3600.3400, L501.9985, L3410.9992 ####[facility] [address] [place], [place], [address] L3410.9992on 01-23-2025 [facility] Misc. COMMENT Normal . [facility] Comment on above: Order Comment: [id number] Result Comment: Test Ordered: [id number] 25-Hydroxyvitamin D LCMS D2+D3 25-Hydroxy, Vitamin D 16 [L ] ng/mL ES Reference Range: . Reference Range: All Ages: Target levels 30 - 100 25-Hydroxy, Vitamin D-2 <1.0 ng/mL ES Reference Range: . This test was developed and its performance characteristics determined by [facility]. It has not been cleared or approved by the Food and Drug Administration. 25-Hydroxy, Vitamin D-3 15 ng/mL ES Reference Range: . This test was developed and its performance characteristics determined by [facility]. It has not been cleared or approved by the Food and Drug Administration. Performed at: [facility] [address] [place] [id number] Percussion Instrument Tuner: Cristino Singleton MD, Phone: [phone] Performed at: [facility] [address] [id number] Percussion Instrument Tuner: Miguel Benton PhD, Phone: [phone] Performed By: #### L 3600.3400, L501.9985, L3410.9992 ####[facility] [address] [place], [place], [id number] Hemoglobin A1con 01-18-2025 HbA1c (Bld) [Mass fraction] 5.5 % Normal <=5.6 [facility] Comment on above: Result Comment: Norm al < 5.7 % Prediabetic 5.7 - 6.4 % Diabetic >or= 6.5 % Please note range changes. Performed By: #### L 3600.3400, L501.9985, L3410.9992 #### [facility] Laboratory [address] [place], [place], [id number] Hemoglobin A1c percentageon 01-18-2025 HbA1c (Bld) [Mass fraction] 5.5 % <5.7 [facility] Comment on above: Normal < 5.7 % Predi abetic 5.7 - 6.4 % Diabetic >or= 6.5 % Please note range changes. Serum or plasma nicotine barbara surement (mass/volume)on 01-18-2025 Nicotine [Mass/Vol] 10.3 ug/mL . [facility] Comment on above: This test was develo ped and its performance characteristicsdetermined by [facility]. It has not been cleared orapproved by the Food and Drug Administration.Nicotine levels greater than 2.0 are consistent with theuse of tobacco or tobacco cessation products. Echo Completeon 12-23-2024 Echo Complete [facility] Cardiovascular Services [address] [place] [address] Echo Complete 12/23/24 1302 MR#: [id number] Acct: [id number] Name: DARWIN PORTILLO Rep #: [id number] : 1965 59 From: Kam Fonseca MD Attending Dr: Dr. Ginna Kowalski MD Status: REG CLI Ordering Dr: Ginna Kowalski MD Date: 12/23/24 Location: [facility] Sex: F C Admitted: Reason For [...] Dictated: 12/23/24 1302 Date Transcribed: 12/23/24 161 Travel Professional: Signed Normal [facility] Echocardiogram study reportO rdered By: Kam Fonseca on 12-23-2024 Study report [facility] Cardiovascular Services [address] [place] [place] [address] Echo Complete 12/23/24 1302 MR#: [id number] Acct: [id number] Name: DARWIN PORTILLO Rep #:[id number] : 1965 59 From: Kam Pena Attending Dr: Dr. Ginna Kowalski MD Status: REG I Ordering Dr: Ginna Kowalski MD Date: 0 12/23/24 Location: [facility] Sex: F C Admitted: Reason For [...] Dictated: 12/23/24 1302 Date Transcribed: 12/23/24 1614 Travel Professional: Signed [facility] Work Phone: Lower Ext Joint Only (Routin e)on 12-19-2024 Lower Ext Joint Only (Routine) [facility] Imaging Services [address] [place], [place] [address], [place] [address] Lower Ext Joint Only (Routine) MR#: [id number] Acct: [id number] Name: DARWIN PORTILLO Rep #: [id number] : 1965 F 59 From: Garcia Issa i DO PCP: Dr. Ginna Kowalski MD Status: REG CLI Study: Lower Ext Joint Only (Routine) Date of Exam: 0 12/19/24 Exam# [id number] Ordering Dr: Markel Leyva DPM EXAM: Noncontrast [...] the sequela of prior trauma. Reading Location: [facility] CC: DPJudy Leyva; Dr. Ginna Kowalski MD Travel Professional: Signed Normal [facility] Magnetic resonance imaging r eportOrdered By: Garcia Phelan on 12-19-2024 Study report [facility] Imaging Services [address] [place] [place] [address] Lower Ext Joint Only (Routine) MR#: [id number] Acct: [id number] Name: DARWIN PORTILLO Rep #: [id number] : 1965 F 59 From: And torin Phelan DO PCP: Dr. Ginna Kowalski MD Status: REG CLI Study:Lower Ext Joint Only (Routine) Date of Exam: 12/19/24 Exam# [id number] Ordering Dr: Alvarado Leyva DPM EXAM: Noncontrast [...] ALBERTO Leyva; Dr. Ginna Kowalski MD ~ Travel Professional: Signed [facility] Foot min 3 Viewson 4 Foot min 3 Views [facility] Imaging Services [address] [place] [address] Foot min 3 Views MR#: [id number] Acct: [id number] Name: DARWIN PORTILLO Rep #: [id number] : 1965 F 59 From: Mario Small DO PCP: Dr. Ginna Kowalski MD Status: REG CLI Study: Foot min 3 Views Date of Exam: 07/22/24 Exam# [id number] Ordering Dr: Ginna Kowalski MD [id number] INDICATION: LEFT FOOT SPUR EXAMINATION/TECHNIQUE: X-RAY - [...] EST , CC: Dr. Ginna Kowalski MD Travel Professional: Signed Normal [facility] HIP, UNI W/ Pelvis 2-3 Views on 07-22-2024 HIP, UNI W/ Pelvis 2-3 Views [facility] Imaging Services [address] [address] HIP, UNI W/ Pelvis 2-3 Views MR#: [id number] Acct: [id number] Name: DARWIN PORTILLO Rep #: [id number] : 1965 F 59 From: Mario Small DO PCP: Dr. Ginna Kowalski MD Status: REG CL Study: HIP, UNI W/ Pelvis 2-3 Views Date of Exam: 08/04 Exam# [id number] Ordering Dr: Ginna Kowalski MD [id number] INDICATION: LEFT HIP PAIN, ABNORMAL GAIT EXAMINATION/TECHNIQUE: [...] 8:47 EST Reading Location ID and State: [facility] / [place] Tel [phone], Service support , CC: Dr. Ginna Kowalski MD Travel Professional: Signed Normal [facility] CBC, Employeeon 07-01-2024 Absolute Lymph 1.43 X10 3/uL Normal 0.83-4.51 [facility] Comment on above: Performed By: #### L 400.0100, L500.2900, L100.0200 ####[facility] [address] [place], [address] Absolute Neut 4.0 X10 3/uL Normal 2.0-7.7 [facility] Comment on above: Performed By: #### L 400.0100, L500.2900, L100.0200 ####[facility] [address] [place], [address] Basophils/100 WBC (Bld) 1.0 % Normal 0-1 [facility] Comment on above: Performed By: #### L 400.0100, L500.2900, L100.0200 ####[facility] [address] [place], [address] Eosinophils/100 WBC (Bld) 1.3 % Normal 0-5 [facility] Comment on above: Performed By: #### L 400.0100, L500.2900, L100.0200 ####[facility] [address] [place], [address] Erythrocyte distribution width (RBC) [Ratio] 12.9 % Normal 11.6-14.6 [facility] Comment on above: Performed By: #### L 400.0100, L500.2900, L100.0200 ####[facility] [address] [place], [address] Hematocrit (Bld) [Volume fraction] 42.6 % Normal 37-47 [facility] Comment on above: Performed By: #### L 400.0100, L500.2900, L100.0200 ####[facility] [address] [place], [address] Hemoglobin (Bld) [Mass/Vol] 14.1 g/dL Normal 12.0-15.0 [facility] Comment on above: Performed By: #### L 400.0100, L500.2900, L100.0200 ####[facility] [address] [place], [address] Lymphocytes/100 WBC (Bld) 23.8 % Normal 19-41 [facility] Comment on above: Performed By: #### L 400.0100, L500.2900, L100.0200 ####[facility] [address] [place], [address] MCH (RBC) [Entitic mass] 31.3 pg Normal 27.0-32.0 [facility] Comment on above: Performed By: #### L 400.0100, L500.2900, L100.0200 ####[facility] [address] [place], [address] MCHC (RBC) [Mass/Vol] 33.1 g/dL Normal 32-36 [facility] Comment on above: Performed By: #### L 400.0100, L500.2900, L100.0200 ####[facility] [address] [place], [address] MCV (RBC) [Entitic vol] 94.5 fL Normal 81-99 [facility] Comment on above: Performed By: #### L 400.0100, L500.2900, L100.0200 ####[facility] [address] [place], [address] Monocytes/100 WBC (Bld) 7.8 % Normal 0-10 [facility] Comment on above: Performed By: #### L 400.0100, L500.2900, L100.0200 ####[facility] [address] [place], [address] Neutrophils/100 WBC (Bld) 65.9 % Normal 47-70 [facility] Comment on above: Performed By: #### L 400.0100, L500.2900, L100.0200 ####[facility] [address] [place], [address] NRBC # 0.00 10 3/uL Normal 0-5 [facility] Comment on above: Performed By: #### L 400.0100, L500.2900, L100.0200 ####[facility] [address] [place], [address] Nucleated RBC (Bld) [#/Vol] 0 10*3/uL Normal 0-5 [facility] Comment on above: Performed By: #### L 400.0100, L500.2900, L100.0200 ####[facility] [address] [place], [address] Platelet mean volume (Bld) [Entitic vol] 9.1 fL Normal 6.2-12.0 [facility] Comment on above: Performed By: #### L 400.0100, L500.2900, L100.0200 ####[facility] [address] [place], [address] Platelets (Bld) [#/Vol] 333 10*3/uL Normal 150-450 [facility] Comment on above: Performed By: #### L 400.0100, L500.2900, L100.0200 ####[facility] [address] [place], [address] RBC (Bld) [#/Vol] 4.51 10*6/uL Normal 4.2-5.4 [facility] Comment on above: Performed By: #### L 400.0100, L500.2900, L100.0200 ####[facility] [address] [place], [address] RDW SD 45.1 fl High 35.1-43.9 [facility] Comment on above: Performed By: #### L 400.0100, L500.2900, L100.0200 ####[facility] [address] [place], [address] WBC (Bld) [#/Vol] 6.0 10*3/uL Normal 4.4-11.0 [facility] Comment on above: Performed By: #### L 400.0100, L500.2900, L100.0200 ####[facility] [address] [place], [address] Employee Profileon 4 Albumin [Mass/Vol] 3.5 g/dL Normal 3.2-5.0 [facility] Comment on above: Performed By: #### L 400.0100, L500.2900, L100.0200 ####[facility] [address] [place], [address] Albumin/Globulin [Mass ratio] 0.9 {ratio} Normal 0.9-2.4 [facility] Comment on above: Performed By: #### L 400.0100, L500.2900, L100.0200 ####[facility] [address] [place], [address] ALK P 86 U/L Normal 45-117 [facility] Comment on above: Performed By: #### L 400.0100, L500.2900, L100.0200 ####[facility] [address] [place], [address] ALT [Catalytic activity/Vol] 25 U/L Normal 13-56 [facility] Comment on above: Performed By: #### L 400.0100, L500.2900, L100.0200 ####[facility] [address] [place], [address] AST [Catalytic activity/Vol] 13 U/L Low 15-37 [facility] Comment on above: Performed By: #### L 400.0100, L500.2900, L100.0200 ####[facility] [address] [place], [address] Bilirubin [Mass/Vol] 0.30 mg/dL Normal 0.20-1.00 [facility] Comment on above: Result Comment: For patients on eltrombopag therapy, use of Dimension [place] TBIL is not recommended. Performed By: #### L 400.0100, L500.2900, L100.0200 ####[facility] [address] [place], [address] Bilirubin.direct [Mass/Vol] 0.12 mg/dL Normal 0.00-0.30 [facility] Comment on above: Performed By: #### L 400.0100, L500.2900, L100.0200 ####[facility] [address] [place], [address] BUN/CRE 16.6 RATIO Normal 10-20 [facility] Comment on above: Performed By: #### L 400.0100, L500.2900, L100.0200 ####[facility] [address] [place], [address] CA,Total 9.2 mg/dL Normal 8.5-10.1 [facility] Comment on above: Performed By: #### L 400.0100, L500.2900, L100.0200 ####[facility] [address] [place], [address] Chloride [Moles/Vol] 108 mmol/L High 98-107 [facility] Comment on above: Performed By: #### L 400.0100, L500.2900, L100.0200 ####[facility] [address] [place], [address] CHOL:HDL 3.60 Normal [facility] Comment on above: Performed By: #### L 400.0100, L500.2900, L100.0200 ####[facility] [address] [place], [address] Cholesterol [Mass/Vol] 211 mg/dL High 200 [facility] Comment on above: Result Comment: <200 mg/dL Desirable 200-240 mg/dL Borderline >240 mg/dL High Risk Performed By: #### L 400.0100, L500.2900, L100.0200 ####[facility] [address] [place], [address] Cholesterol in HDL [Mass/Vol] 58 mg/dL Normal [facility] Comment on above: Result Comment: The drugs N-Acetylcysteine and Metamizole may falsely depress this assay. Reference Range HDL <40 mg/dL Low HDL Cholesterol HDL >or= 60 mg/dL High HDL Cholesterol Performed By: #### L 400.0100, L500.2900, L100.0200 ####[facility] [address] [place], [address] Cholesterol in LDL [Mass/Vol] 137 mg/dL High 0-130 [facility] Comment on above: Performed By: #### L 400.0100, L500.2900, L100.0200 ####[facility] [address] [place], [address] Cholesterol in VLDL [Mass/Vol] 16 mg/dL Normal 5-40 [facility] Comment on above: Performed By: #### L 400.0100, L500.2900, L100.0200 ####[facility] [address] [place], [address] CO2 [Moles/Vol] 29.0 mmol/L Normal 21.0-32.0 [facility] Comment on above: Performed By: #### L 400.0100, L500.2900, L100.0200 ####[facility] [address] [place], [address] Creatinine [Mass/Vol] 0.60 mg/dL Normal 0.55-1.02 [facility] Comment on above: Result Comment: The validity of the calculated GFR GFRAA in patients over 70 years has not been determined. Clinical correlation is essential. Performed By: #### L 400.0100, L500.2900, L100.0200 ####[facility] [address] [place], [address] EST GFR - AA 131 mL/min Normal >60 [facility] Comment on above: Result Comment: Afri can Ghanaian GFR Calc Performed By: #### L 400.0100, L500.2900, L100.0200 ####[facility] [address] [place], [address] GAP 5 Normal 5-15 [facility] Comment on above: Performed By: #### L 400.0100, L500.2900, L100.0200 ####[facility] [address] [place], [address] GFR/1.73 sq M.predicted among non-blacks MDRD (S/P/Bld) [Vol rate/Area] 108 mL/min/{1.73_m2} Normal >60 [facility] Comment on above: Result Comment: Non- GFR Calc Performed By: #### L 400.0100, L500.2900, L100.0200 ####[facility] [address] [place], [address] Globulin (S) [Mass/Vol] 3.9 g/dL Normal 2.2-4.2 [facility] Comment on above: Performed By: #### L 400.0100, L500.2900, L100.0200 ####[facility] [address] [place], [address] Glucose [Mass/Vol] 106 mg/dL Normal 74-106 [facility] Comment on above: Result Comment: Fast ing Glucose result from 100 to 125 mg/dL suggests IMPAIRED HOMEOSTASIS per A.D.A. criteria. Performed By: #### L 400.0100, L500.2900, L100.0200 ####[facility] [address] [place], [address] LDH 204 U/L Normal 84-246 [facility] Comment on above: Performed By: #### L 400.0100, L500.2900, L100.0200 ####[facility] [address] [place], [address] Phosphate [Mass/Vol] 3.3 mg/dL Normal 2.5-4.9 [facility] Comment on above: Performed By: #### L 400.0100, L500.2900, L100.0200 ####[facility] [facility] [address] [place], [address] Potassium [Moles/Vol] 3.7 mmol/L Normal 3.5-5.1 [facility] Comment on above: Performed By: #### L 400.0100, L500.2900, L100.0200 ####[facility] [address] [place], [address] Sodium [Moles/Vol] 142 mmol/L Normal 136-145 [facility] Comment on above: Performed By: #### L 400.0100, L500.2900, L100.0200 ####[facility] [address] [place], [address] T PROT 7.4 g/dL Normal 6.4-8.2 [facility] Comment on above: Performed By: #### L 400.0100, L500.2900, L100.0200 ####[facility] [address] [place], [address] Triglyceride [Mass/Vol] 80 mg/dL Normal [facility] Comment on above: Result Comment: The drugs N-Acetylcysteine and Metamizole may falsely depress this assay. Serum Triglycerides Reference Interval Normal <150 mg/dL Borderline high 150 - 199 mg/dL High 200 - 499 mg/dL Very High > or = 500 mg/dL Performed By: #### L 400.0100, L500.2900, L100.0200 ####[facility] [address] [place], [address] Urea nitrogen [Mass/Vol] 10 mg/dL Normal 7-18 [facility] Comment on above: Performed By: #### L 400.0100, L500.2900, L100.0200 ####[facility] [address] [place], [address] URIC 4.3 mg/dL Normal 2.6-6.0 [facility] Comment on above: Result Comment: The drugs N-Acetylcysteine and Metamizole may falsely depress this assay. Performed By: #### L 400.0100, L500.2900, L100.0200 ####[facility] [address] [place], [address] Urinalysis, Employeeon 07-01 BILIRUBIN URINE Normal Negative [facility] Comment on above: Order Comment: CLEAN CATCH Result Comment: NOT WANTED Performed By: #### L 400.0100, L500.2900, L100.0200 ####[facility] [address] [place], [address] Clarity (U) Normal Clear [facility] Comment on above: Order Comment: CLEAN CATCH Result Comment: NOT WANTED Performed By: #### L 400.0100, L500.2900, L100.0200 ####[facility] [address] [place], [address] Color (U) Normal Yellow [facility] Comment on above: Order Comment: CLEAN CATCH Result Comment: NOT WANTED Performed By: #### L 400.0100, L500.2900, L100.0200 ####[facility] [address] [place], [address] GLUCOSE, UR Normal Normal [facility] Comment on above: Order Comment: CLEAN CATCH Result Comment: NOT WANTED Performed By: #### L 400.0100, L500.2900, L100.0200 ####[facility] [address] [place], [address] KETONE UR Normal Negative [facility] Comment on above: Order Comment: CLEAN CATCH Result Comment: NOT WANTED Performed By: #### L 400.0100, L500.2900, L100.0200 ####[facility] [address] [place], [address] LEUK ESTERASE Normal Negative [facility] Comment on above: Order Comment: CLEAN CATCH Result Comment: NOT WANTED Performed By: #### L 400.0100, L500.2900, L100.0200 ####[facility] [address] [place], [address] Nitrite Ql (U) Normal Negative [facility] Comment on above: Order Comment: CLEAN CATCH Result Comment: NOT WANTED Performed By: #### L 400.0100, L500.2900, L100.0200 ####[facility] [address] [place], [address] OCCULT BLOOD-UR Normal Negative [facility] Comment on above: Order Comment: CLEAN CATCH Result Comment: NOT WANTED Performed By: #### L 400.0100, L500.2900, L100.0200 ####[facility] [address] [place], [address] pH UR Normal 5.0 - 8.0 [facility] Comment on above: Order Comment: CLEAN CATCH Result Comment: NOT WANTED Performed By: #### L 400.0100, L500.2900, L100.0200 ####[facility] [address] [place], [address] PROT DIPSTX Normal Negative [facility] Comment on above: Order Comment: CLEAN CATCH Result Comment: NOT WANTED Performed By: #### L 400.0100, L500.2900, L100.0200 ####[facility] [address] [place], [address] SP.GR. DIPSTX Normal 1.002-1.03 0 [facility] Comment on above: Order Comment: CLEAN CATCH Result Comment: NOT WANTED Performed By: #### L 400.0100, L500.2900, L100.0200 ####[facility] [address] [place], [address] UR Preservative Normal [facility] Comment on above: Order Comment: CLEAN CATCH Result Comment: NOT WANTED Performed By: #### L 400.0100, L500.2900, L100.0200 ####[facility] [address] [place], [address] UROBILI Normal Normal [facility] Comment on above: Order Comment: CLEAN CATCH Result Comment: NOT WANTED Performed By: #### L 400.0100, L500.2900, L100.0200 ####[facility] [address] [place], [address] Absolute lymphocyte countOrd ered By: Panda Young on 12-16-2023 Lymphocytes Auto (Unsp spec) [#/Vol] 1.86 10*3/uL 0.83-4.51 [facility] Automated lymphocyte count a s percentage of total leukocytesOrdered By: Panda Young on 12-16-2023 Lymphocytes/100 WBC Auto (Unsp spec) 35.5 % 19-41 [facility] Basophil percentageOrdered B y: Panda Young on 12-16-2023 Basophils/100 WBC (Bld) 0.6 % 0-1 [facility] Chloride [Moles/Vol] 111 mmol/L 98-107 [facility] Eosinophils/100 WBC (Bld) 1.9 % 0-5 [facility] Glucose [Mass/Vol] 98 mg/dL 74-106 [facility] Hemoglobin (Bld) [Mass/Vol] 13.2 g/dL 12.0-15.0 [facility] Monocytes/100 WBC (Bld) 8.8 % 0-10 [facility] Neutrophils (Bld) [#/Vol] 2.8 10*3/uL 2.0-7.7 [facility] Neutrophils/100 WBC (Bld) 53.0 % 47-70 [facility] Potassium [Moles/Vol] 3.9 mmol/L 3.5-5.1 [facility] Sodium [Moles/Vol] 140 mmol/L 136-145 [facility] WBC (Bld) [#/Vol] 5.2 10*3/uL 4.4-11.0 [facility] Determination of erythrocyte mean corpuscular volume (MCV)Ordered By: Panda Young on 12-16-2023 MCV (RBC) [Entitic vol] 94.1 fL 81-99 [facility] Erythrocyte distribution wid th ratioOrdered By: Panda Young on 12-16-2023 Erythrocyte distribution width (RBC) [Ratio] 12.5 % 11.6-14.6 [facility] Erythrocyte distribution wid th standard deviationOrdered By: Panda Young on 12-16-2023 Erythrocyte distribution width (RBC) [Entitic vol] 43.1 fL 35.1-43.9 [facility] Hematocrit Auto (Bld) [Volum e fraction]Ordered By: Panda Young on 12-16-2023 Hematocrit (Bld) [Volume fraction] 39.6 % 37-47 [facility] Immature granulocytes/100 WB C Auto (Bld)Ordered By: Panda Young on 12-16-2023 Immature granulocytes/100 WBC (Bld) 0.200 % 0.0-0.9 [facility] Comment on above: IG% - Immature Granu locytes (promyelocytes, myelocytes and metamyelocytes) > 1% indicates that a LEFT SHIFT is Present. Laboratory - Chemistry and C hemistry - challengeOrdered By: Panda Young on 12-16-2023 CO2 [Moles/Vol] 25.0 mmol/L 21.0-32.0 [facility] Urea nitrogen/Creatinine [Mass ratio] 20.4 mg/mg 10-20 [facility] Laboratory - Hematology and Cell countsOrdered By: Panda Young on 12-16-2023 MCH (RBC) [Entitic mass] 31.4 pg 27.0-32.0 [facility] MCHC (RBC) [Mass/Vol] 33.3 g/dL 32-36 [facility] Nucleated RBC/100 WBC (Bld) [Ratio] 0 % 0-5 [facility] Platelet mean volume (Bld) [Entitic vol] 9.4 fL 6.2-12.0 [facility] Platelets (Bld) [#/Vol] 266 10*3/uL 150-450 [facility] No Panel InformationOrdered By: Panda Young on 12-16-2023 Estimated Creatinine Clearance Calc 111.96 ml/min [facility] Estimated GFR (MDRD) Amer 123 mL/min >60 [facility] Comment on above: GFR Calc Estimated GFR (MDRD) Non-Af Amer 102 mL/min >60 [facility] Comment on above: Non- GFR Calc RBC Auto (Bld) [#/Vol]Ordere d By: Panda Young on 12-16-2023 RBC (Bld) [#/Vol] 4.21 10*6/uL 4.2-5.4 [facility] Serum or plasma calcium laura urement (mass/volume)Ordered By: Panda Young on 12-16-2023 Calcium [Mass/Vol] 8.7 mg/dL 8.5-10.1 [facility] Serum or plasma creatinine m easurement (mass/volume)Ordered By: Panda Young on 12-16-2023 Creatinine [Mass/Vol] 0.64 mg/dL 0.55-1.02 [facility] Comment on above: The validity of the calculated GFR & GFRAA in patients over 70 years has not been determined. Clinical correlation is essential. Serum or plasma urea nitroge n measurement (mass/volume)Ordered By: Panda Young on 12-16-2023 Urea nitrogen [Mass/Vol] 13 mg/dL 7-18 [facility] Thin prep Papanicolaou smear with manual screeningOrdered By: Panda Young on 04-06-2024 Thin prep Papanicolaou smear with manual screening 4 5-15 [facility] Absolute lymphocyte countOrd ered By: Sol Shirley on 06-21-2023 Lymphocytes Auto (Unsp spec) [#/Vol] 2.71 10*3/uL 0.83-4.51 [facility] Basophil percentageOrdered B y: Sol Shirley on 06-21-2023 Basophil percentage 0 SEEN /hpf 0-5 [facility] Basophils/100 WBC (Bld) 1.2 % 0-1 [facility] Bilirubin [Mass/Vol] 0.20 mg/dL 0.20-1.00 [facility] Comment on above: For patients on eltr ombopag therapy, use of Dimension [place] TBIL is not recommended. Chloride [Moles/Vol] 112 mmol/L 98-107 [facility] Eosinophils/100 WBC (Bld) 1.6 % 0-5 [facility] Glucose [Mass/Vol] 120 mg/dL 74-106 [facility] Comment on above: Fasting Glucose resu lt from 100 to 125 mg/dL suggests IMPAIRED HOMEOSTASIS per A.D.A. criteria. Neutrophils (Bld) [#/Vol] 3.4 10*3/uL 2.0-7.7 [facility] Neutrophils/100 WBC (Bld) 49.7 % 47-70 [facility] Potassium [Moles/Vol] 3.6 mmol/L 3.5-5.1 [facility] Protein [Mass/Vol] 7.4 g/dL 6.4-8.2 [facility] Sodium [Moles/Vol] 141 mmol/L 136-145 [facility] WBC (Bld) [#/Vol] 6.8 10*3/uL 4.4-11.0 [facility] Bilirubin Test strip Ql (U)O rdered By: Sol Shirley on 06-21-2023 Bilirubin Ql (U) Negative Negative [facility] Blood erythrocytes count (nu mber/volume)Ordered By: Sol Shirley on 06-21-2023 RBC (Bld) [#/Vol] 4.75 10*6/uL 4.2-5.4 [facility] Blood hemoglobin measurement (mass/volume)Ordered By: Sol Shirley on 06-21-2023 Hemoglobin (Bld) [Mass/Vol] 14.9 g/dL 12.0-15.0 [facility] Blood lymphocytes/100 leukoc ytesOrdered By: Sol Shirley on 06-21-2023 Lymphocytes/100 WBC (Bld) 39.9 % 19-41 [facility] Blood monocytes/100 leukocyt esOrdered By: Sol Shirley on 06-21-2023 Monocytes/100 WBC (Bld) 7.5 % 0-10 [facility] Blood platelet mean volumeOr dered By: Sol Shirley on 06-21-2023 Platelet mean volume (Bld) [Entitic vol] 9.1 fL 6.2-12.0 [facility] Calcium oxalate crystals det ection in urine sediment by light microscopyOrdered By: Sol Shirley on 06-21-2023 Calcium oxalate crystals LM Ql (Urine sed) 2+ /hpf [facility] Determination of erythrocyte mean corpuscular volume (MCV)Ordered By: Sol Shirley on 06-21-2023 MCV (RBC) [Entitic vol] 95.6 fL 81-99 [facility] Direct bilirubinOrdered By: Sol Shirley on 06-21-2023 Bilirubin.direct [Mass/Vol] 0.07 mg/dL 0.00-0.30 [facility] Hematocrit Auto (Bld) [Volum e fraction]Ordered By: Sol Shirley on 06-21-2023 Hematocrit (Bld) [Volume fraction] 45.4 % 37-47 [facility] Ketones Test strip Ql (U)Ord ered By: Sol Shirley on 06-21-2023 Ketones Ql (U) Negative Negative [facility] Laboratory - Chemistry and C hemistry - challengeOrdered By: Sol Shirley on 06-21-2023 ALP [Catalytic activity/Vol] 85 U/L 45-117 [facility] ALT [Catalytic activity/Vol] 28 U/L 13-56 [facility] CO2 [Moles/Vol] 26.0 mmol/L 21.0-32.0 [facility] Globulin (S) [Mass/Vol] 4.0 g/dL 2.2-4.2 [facility] Urea nitrogen/Creatinine [Mass ratio] 19.7 mg/mg 10-20 [facility] Laboratory - Hematology and Cell countsOrdered By: Sol Shirley on 06-21-2023 Erythrocyte distribution width (RBC) [Entitic vol] 44.2 fL 35.1-43.9 [facility] Erythrocyte distribution width (RBC) [Ratio] 12.6 % 11.6-14.6 [facility] Immature granulocytes/100 WBC (Bld) 0.100 % 0.0-0.9 [facility] Comment on above: IG% - Immature Granu locytes (promyelocytes, myelocytes and metamyelocytes) > 1% indicates that a LEFT SHIFT is Present. MCH (RBC) [Entitic mass] 31.4 pg 27.0-32.0 [facility] Nucleated RBC/100 WBC (Bld) [Ratio] 0 % 0-5 [facility] MCHC Auto (RBC) [Mass/Vol]Or dered By: Sol Shirley on 06-21-2023 MCHC (RBC) [Mass/Vol] 32.8 g/dL 32-36 [facility] Mucus LM Ql (Urine sed)Order ed By: Sol Shirley on 06-21-2023 Mucus Ql (Urine sed) 0 SEEN /hpf [facility] Nitrite Test strip Ql (U)Ord ered By: Sol Shirley on 06-21-2023 Nitrite Ql (U) Negative Negative [facility] No Panel InformationOrdered By: Sol Shirley on 06-21-2023 Estimated Creatinine Clearance Calc 86.98 ml/min [facility] Estimated GFR (MDRD) Amer 118 mL/min >60 [facility] Comment on above: GFR Calc Estimated GFR (MDRD) Non-Af Amer 98 mL/min >60 [facility] Comment on above: Non- GFR Calc Platelets bldOrdered By: Johanna Shirley on 06-21-2023 Platelets (Bld) [#/Vol] 319 10*3/uL 150-450 [facility] Protein Test strip Ql (U)Ord ered By: Sol Shirley on 06-21-2023 Protein Ql (U) 15 mg/dl Negative [facility] Serum or plasma albumin laura urement (mass/volume)Ordered By: Sol Shirley on 06-21-2023 Albumin [Mass/Vol] 3.4 g/dL 3.2-5.0 [facility] Serum or plasma calcium laura urement (mass/volume)Ordered By: Sol Shirley on 06-21-2023 Calcium [Mass/Vol] 9.0 mg/dL 8.5-10.1 [facility] Serum or plasma creatinine m easurement (mass/volume)Ordered By: Sol Shirley on 06-21-2023 Creatinine [Mass/Vol] 0.66 mg/dL 0.55-1.02 [facility] Comment on above: The validity of the calculated GFR & GFRAA in patients over 70 years has not been determined. Clinical correlation is essential. Serum or plasma urea nitroge n measurement (mass/volume)Ordered By: Sol Shirley on 06-21-2023 Urea nitrogen [Mass/Vol] 13 mg/dL 7-18 [facility] Squamous epithelial cells de tection in urine sediment by light microscopyOrdered By: Sol Shirley on 06-21-2023 Epithelial cells.squamous LM Ql (Urine sed) 0-5 SEEN /hpf 5-10 [facility] Thin prep Papanicolaou smear with manual screeningOrdered By: Sol Shirley on 06-21-2023 Thin prep Papanicolaou smear with manual screening 9 U/L 15-37 [facility] Thin prep Papanicolaou smear with manual screening 3 5-15 [facility] Urine blood detectionOrdered By: Sol Shirley on 06-21-2023 RBC Ql (U) 10 /ul Negative [facility] RBC Ql (U) 0 SEEN /hpf 0-5 [facility] Urine clarityOrdered By: Johanna Shirley on 06-21-2023 Clarity (U) Clear Clear [facility] Urine color determinationOrd ered By: Sol Shirley on 06-21-2023 Color (U) Yellow Yellow [facility] Urine glucose detectionOrder ed By: Sol Shirley on 06-21-2023 Glucose Ql (U) Normal mg/dl Normal [facility] Urine leukocyte esterase det ection by dipstickOrdered By: Sol Shirley on 06-21-2023 Leukocyte esterase Test strip Ql (U) 25 /ul Negative [facility] Urine pHOrdered By: Sol Shirley on 06-21-2023 pH (U) 6.0 [pH] 5.0 - 8.0 [facility] Urine sediment bacteria coun t by microscopy (number/high power field)Ordered By: Sol Shirley on 06-21-2023 Bacteria LM.HPF (Urine sed) [#/Area] 0 /[HPF] None Seen [facility] Urine specific gravity measu rementOrdered By: Sol Shirley on 06-21-2023 Specific gravity (U) [Rel density] 1.020 1.002-1.03 0 [facility] Urobilinogen Auto test strip Ql (U)Ordered By: Sol Shirley on 06-21-2023 Urobilinogen Ql (U) Normal mg/dl Normal [facility] Laboratory - Microbiology an d Antimicrobial susceptibilityon 04-21-2022 SARS-CoV-2 (COVID-19) RNA CONSUELO+probe Ql (Unsp spec) Detected [facility] Work Phone: CNOVon 12-21-2018 CNOV Office Visit (JOHNNYAGAK ) -- DARWIN PORTILLO ([id number]) 1965 F Date Time Provider Department 12/21/18 [...] Age: [age] year old Sex: female MRN/E# [id number] Chief Complaint: Patient presents with: Back Pain: [...] upper or lower extremities proximally and distally. 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 No spasticity or tremor Reflexes [...] 4V AP/LAT/ FLEX/EXT; Future MD Ijeoma Orona APRN.PLASTICS ENGINEERING TEACHER 12/21/2018 1:19 PM Signed Addended by: IJEOMA AGUSTIN PLASTICS ENGINEERING TEACHER on: 12/21/2018 01:19 PM Modules accepted: Orders Referring Provider: CARA PATEL [[id number]] Allergies As of Date: 12/21/2018 Noted Allergy [...] Status:Closed by SHAYY ELIZABETH MD on 12/21/18 [facility] PROGRESSon 12-21-2018 Protein mass conc HNO ID: [id number] Author: Shayy Elizabeth Service: ? Author Type: Physician Type: Progress Notes Filed: 12/21/2018 1:12 PM Note Text: NEUROSURGERY CONSULT NOTE Shayy Elizabeth MD Date of visit: December 20, 2018 Patient Name: Ms.Joanne Portillo Date of : 1965 Current Age: [age] year old Sex: female MRN/E# [id number] Chief Complaint: Patient presents with: Back Pain: [...] upper or lower extremities proximally and distally. 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 No spasticity or tremor Reflexes [...] 4V AP/LAT/ FLEX/EXT; Future Shayy Elizabeth MD [facility] Office Visiton 07-20-2017 Alcoholism counseling (procedure) no Invalid Interpretation Code [facility] Work Phone: Documentation of current medications (procedure) Done Invalid Interpretation Code [facility] Work Phone: Smoking cessation education (procedure) yes Invalid Interpretation Code [facility] Work Phone: Tobacco use CPHS Current every day smoker Invali d Interpretation Code [facility] Work Phone: Office Visiton 07-14-2017 Alcoholism counseling (procedure) no Invalid Interpretation Code [facility] Work Phone: Documentation of current medications (procedure) Done Invalid Interpretation Code [facility] Work Phone: Smoking cessation education (procedure) yes Invalid Interpretation Code [facility] Work Phone: [phone] Tobacco use CPHS Current every day smoker Invali d Interpretation Code [facility] Work Phone: [phone] Office Visiton 07-04-2017 Protein mass conc Done Invalid Interpretation Code [facility] Work Phone: [phone] Protein mass conc no Invalid Interpretation Code [facility] Work Phone: [phone] Protein mass conc yes Invalid Interpretation Code [facility] Work Phone: [phone] Tobacco smoking status NHIS Current every day smoker Invalid Interpretation Code [facility] Work Phone: [phone] Office Visiton 06-29-2017 Alcoholism counseling (procedure) no Invalid Interpretation Code [facility] Work Phone: [phone] Documentation of current medications (procedure) Done Invalid Interpretation Code [facility] Work Phone: [phone] Smoking cessation education (procedure) yes Invalid Interpretation Code [facility] Work Phone: [phone] Tobacco use CPHS Current every day smoker Invali d Interpretation Code [facility] Work Phone: [phone] Office Visiton 06-09-2017 Alcoholism counseling (procedure) no Invalid Interpretation Code [facility] Work Phone: [phone] Documentation of current medications (procedure) Done Invalid Interpretation Code [facility] Work Phone: [phone] Smoking cessation education (procedure) yes Invalid Interpretation Code [facility] Work Phone: [phone] Tobacco use CPHS Current every day smoker Invali d Interpretation Code [facility] Work Phone: [phone] Office Visiton 04-27-2017 Alcoholism counseling (procedure) no Invalid Interpretation Code [facility] Work Phone: [phone] Documentation of current medications (procedure) Done Invalid Interpretation Code [facility] Work Phone: [phone] Protein mass conc no [facility] Work Phone: [phone] Protein mass conc Done [facility] Work Phone: [phone] Protein mass conc yes [facility] Work Phone: [phone] Smoking cessation education (procedure) yes Invalid Interpretation Code [facility] Work Phone: [phone] Tobacco smoking status NHIS Current every day smoker [facility] Work Phone: [phone] Tobacco use CPHS Current every day smoker Invali d Interpretation Code [facility] Work Phone: [phone] Office Visiton 04-13-2017 Alcoholism counseling (procedure) no Invalid Interpretation Code [facility] Work Phone: [phone] Documentation of current medications (procedure) Done Invalid Interpretation Code [facility] Orthopaedics Work Phone: [phone] Protein mass conc no [facility] Work Phone: [phone] Protein mass conc Done [facility] Work Phone: [phone] Protein mass conc yes [facility] Work Phone: [phone] Smoking cessation education (procedure) yes Invalid Interpretation Code [facility] Work Phone: [phone] Tobacco smoking status NHIS Current every day smoker [facility] Work Phone: [phone] Tobacco use CPHS Current every day smoker Invali d Interpretation Code [facility] Work Phone: [phone] Office Visiton 03-10-2017 Protein mass conc no [facility] Work Phone: [phone] Protein mass conc Done [facility] Work Phone: [phone] Protein mass conc yes [facility] Work Phone: [phone] Tobacco smoking status NHIS Current every day [facility] Work Phone: [phone] Office Visiton 02-17-2017 Alcoholism counseling (procedure) no Invalid Interpretation Code [facility] Work Phone: [phone] Documentation of current medications (procedure) Done Invalid Interpretation Code [facility] Work Phone: [phone] Protein mass conc no [facility] Work Phone: [phone] Protein mass conc Done [facility] Work Phone: [phone] Protein mass conc yes [facility] Work Phone: [phone] Smoking cessation education (procedure) yes Invalid Interpretation Code [facility] Work Phone: [phone] Tobacco smoking status NHIS Current every day smoker [facility] Work Phone: [phone] Tobacco use CP Current every day smoker Invali d Interpretation Code [facility] Work Phone: [phone] Microbiology: Culture, Body Fluidon 01-31-2017 body fluid culture . Invalid Interpretation Code [facility] Work Phone: [phone] CUBF . Invalid Interpretation Code [facility] Work Phone: [phone] Microbiology: (P) Culture, B laura Fluidon 01-29-2017 body fluid culture . Invalid Interpretation Code [facility] Work Phone: [phone] Microbiology: (P) Culture, B laura Fluidon 01-25-2017 body fluid culture . Invalid Interpretation Code [facility] Work Phone: [phone] Microbiology: (P) Culture, B laura Fluidon 01-24-2017 body fluid culture . Invalid Interpretation Code [facility] Work Phone: [phone] Lab Report: GLUCOSE, SYNOVIA L FLUIDon 01-20-2017 GE use only - for LinkLogic import when terms are not otherwise specified 97 mg/dL Invalid Interpretation Code . [facility] Work Phone: [phone] GLU, SYN FLD 97 mg/dL Invalid Interpretation Code . [facility] Work Phone: [phone] Microbiology: (P) Culture, B laura Fluidon 01-20-2017 body fluid culture . Invalid Interpretation Code [facility] Work Phone: [phone] body fluid culture Cult, AnaerobicNo gr owth in 48 hours. Invalid Interpretation Code [facility] Work Phone: [phone] Microbiology: (P) Culture, B laura Fluidon 2017 body fluid culture . Invalid Interpretation Code [facility] Work Phone: [phone] Replaced Document: (P) Cultu re, Body Fluidon 01-18-2017 body fluid culture . Invalid Interpretation Code [facility] Work Phone: [phone] Lab Report: (P) Synovial Flu id RBC, WBC AND Diffon 01-17-2017 Cell Count, Synovial Fluid 0.3630 10 3 uL High 0.000-0.00 0 [facility] Work Phone: [phone] mononuclear cells, synovial fluid as percent of leukocytes 70.5 % Invalid Interpretation Code [facility] Work Phone: [phone] neutrophils, polymorphonuclear as percent of synovial fluid leukocytes 29.5 % Invalid Interpretation Code [facility] Work Phone: [phone] SYBF MN WBC% 70.5 % Invalid Interpretation Code [facility] Work Phone: [phone] SYBF PMN WBC% 29.5 % Invalid Interpretation Code [facility] Work Phone: [phone] 0.3630 10 3 uL High 0.000-0.00 0 [facility] Work Phone: [phone] SYNOVIAL WBC 0.3490 10 3UL High 0.000-0.00 2 [facility] Work Phone: [phone] WBC, Fluid 0.3490 10 3UL High 0.000-0.00 2 [facility] Work Phone: [phone] Lab Report: Crystals, Body F luidon 01-17-2017 PATH REV Will follow Invalid Interpretation Code [facility] Work Phone: [phone] Pathology comment Will follow Invalid Interpretation Code [facility] Work Phone: [phone] Lab Report: Synovial Fluid R BC, WBC AND Diffon 01-17-2017 Erythrocytes (RBC) 0.0001 10*6/uL High 0 [facility] Work Phone: [phone] SYNOVIAL RBC 99 /uL High 0 [facility] Work Phone: [phone] Office Visiton 01-17-2017 Alcoholism counseling (procedure) no Invalid Interpretation Code [facility] Work Phone: [phone] Documentation of current medications (procedure) Done Invalid Interpretation Code [facility] Work Phone: [phone] Smoking cessation education (procedure) yes Invalid Interpretation Code [facility] Work Phone: [phone] Tobacco use CPHS Current every day smoker Invali d Interpretation Code [facility] Work Phone: [phone] Replaced Document: Crystals, Body Fluidon 01-17-2017 crystals, body fluid SYNOVIAL Invalid Interpretation Code [facility] Work Phone: [phone] CRYSTALS/BF SYNOVIAL Invalid Interpretation Code [facility] Work Phone: [phone] Replaced Document: Synovial Fluid RBC, WBC AND Diffon 01-17-2017 Lymphocytes/100 leukocytes 5 % Invalid Interpretation Code [facility] Work Phone: [phone] Lymphocytes/100 WBC (Bld) 5 % [facility] Work Phone: [phone] Monocytes 21 % Invalid Interpretation Code [facility] Work Phone: [phone] Monocytes #/vol (Bld) 21 % [facility] Work Phone: [phone] NEUTROPHIL 5 % Invalid Interpretation Code 0-25 [facility] Work Phone: [phone] neutrophils as percent of body fluid leukocytes 5 % Invalid Interpretation Code 0-25 [facility] Work Phone: [phone] OTHER CELL /SYN 69 % Invalid Interpretation Code [facility] Work Phone: [phone] other Cells 69 % Invalid Interpretation Code [facility] Work Phone: [phone] appearance, body fluid Sl Cl Invalid Interpretation Code CLEAR [facility] Work Phone: [phone] Body Fluid Total Volume 12.0 mL High 0.1-3.5 [facility] Work Phone: [phone] body fluids, viscosity Sl. Viscous Invalid Interpretation Code HIGH [facility] Work Phone: [phone] color, synovial fluid Yellow Invalid Interpretation Code Pale Yellow [facility] Work Phone: [phone] GE use only - for LinkLog[employer] import when terms are not otherwise specified May follow Invalid Interpretation Code [facility] Work Phone: [phone] source of sample KNEE Invalid Interpretation Code [facility] Work Phone: [phone] SYNOVIAL COLOR Yellow Invalid Interpretation Code Pale Yellow [facility] Work Phone: [phone] SYNOVIAL SOURCE KNEE Invalid Interpretation Code [facility] Work Phone: [phone] SYNOVIAL TV 12.0 mL High 0.1-3.5 [facility] Work Phone: [phone] VISCOSITY/SYFL Sl. Viscous Invalid Interpretation Code HIGH [facility] Work Phone: [phone] Lab Report: CBC, Employeeon 04-15-2016 Absolute Neut 2.1 X10 3/UL Invalid Interpretation Code 2.0-7.7 [facility] Work Phone: [phone] Basophils/100 leukocytes 0.5 % Invalid Interpretation Code 0-1 [facility] Work Phone: [phone] Basophils/100 WBC (Bld) 0.5 % 0-1 [facility] Work Phone: [phone] Eosinophils/100 leukocytes 3.2 % Invalid Interpretation Code 0-5 [facility] Work Phone: 1() [phone] Eosinophils/100 WBC (Bld) 3.2 % 0-5 [facility] Work Phone: 1() 0 Erythrocyte distribution width Auto Ratio (RBC) 45.5 fL High 35.1-43.9 [facility] Work Phone: 1() 0 Erythrocyte distribution width Ratio (RBC) 45.5 fL High 35.1-43.9 [facility] Work Phone: [phone] Erythrocyte distribution width Ratio (RBC) 12.9 % 11.6-14.6 [facility] Work Phone: 1() 0 Erythrocytes (RBC) 3.91 10*6/uL Low 4.2-5.4 [facility] Work Phone: 1() 0 Hematocrit (HCT) 38.8 % Invalid Interpretation Code 37-47 [facility] Work Phone: [phone] Hematocrit Volume Fraction (Bld) 38.8 % 37-47 [facility] Work Phone: 1() 0 Hemoglobin (HGB) 12.7 g/dL Invalid Interpretation Code 12.0-15.0 [facility] Work Phone: 1() 0 Lymphocytes 1.75 X10 3/UL Invalid Interpretation Code 0.83-4.51 [facility] Work Phone: 1() 0 Lymphocytes #/vol (Bld) 1.75 X10 3/UL 0.83-4.51 [facility] Work Phone: [phone]) 0 Lymphocytes/100 leukocytes 39.6 % Invalid Interpretation Code 19-41 [facility] Work Phone: [phone] Lymphocytes/100 WBC (Bld) 39.6 % 19- [facility] Work Phone: [phone] MCH 32.5 pg High 27.0-32.0 [facility] Work Phone: 1() 0 MCH Entitic mass (RBC) 32.5 pg High 27.0-32.0 [facility] Work Phone: [phone] MCHC 32.7 G/GL Invalid Interpretation Code 36 [facility] Work Phone: 1() 0 MCHC mass conc (RBC) 32.7 G/GL 32-36 [facility] Work Phone: 1() 0 MCV 99.2 fL High 81-99 [facility] Work Phone: 1() 0 MCV Entitic volume (RBC) 99.2 fL High 81-99 [facility] Work Phone: [phone] Monocytes/100 leukocytes 9.3 % Invalid Interpretation Code 0-10 [facility] Work Phone: [phone] Monocytes/100 WBC (Bld) 9.3 % 0-10 [facility] Work Phone: 1() 0 neutrophil count, blood 2.1 X10 3/UL Invalid Interpretation Code 2.0-7.7 [facility] Work Phone: [phone] Neutrophils #/vol (Bld) 2.1 X10 3/UL 2.0-7.7 [facility] Work Phone: [phone] Neutrophils Auto #/vol (Bld) 2.1 X10 3/UL Invalid Interpretation Code 2.0-7.7 [facility] Work Phone: 1() 0 Neutrophils/100 leukocytes 47.4 % Invalid Interpretation Code 47-70 [facility] Work Phone: [phone] Neutrophils/100 WBC (Bld) 47.4 % 47-70 [facility] Work Phone: [phone] Platelet mean volume Entitic volume (Bld) 9.3 fL 6.2-12.0 [facility] Work Phone: [phone] Platelets 224 10*3/mm3 Invalid Interpretation Code 150-450 [facility] Work Phone: [phone] Platelets #/vol (Bld) 224 10*3/mm3 150-450 [facility] Work Phone: [phone] PMV by Michelle 9.3 fL Invalid Interpretation Code 6.2-12.0 [facility] Work Phone: [phone] RBC #/vol (Bld) 3.91 10*6/uL Low 4.2-5.4 [facility] Work Phone: [phone] RDW SD 45.5 fL High 35.1-43.9 [facility] Work Phone: [phone] RDW-CA 12.9 % Invalid Interpretation Code 11.6-14.6 [facility] Work Phone: [phone] red blood cell distribution width, size density 45.5 fL High 35.1-43.9 [facility] Work Phone: [phone] WBC #/vol (Bld) 4.4 10*3/uL 4.4-11.0 [facility] Work Phone: [phone] WBC (Leukocytes) 4.4 10*3/uL Invalid Interpretation Code 4.4-11.0 [facility] Work Phone: [phone] Lab Report: Employee Profile on 04-15-2016 Alanine aminotransferase (ALT) 42 U/L Invalid Interpretation Code 12-78 [facility] Work Phone: [phone] Albumin 3.2 g/dL Low 3.4-5.0 [facility] Work Phone: [phone] Albumin/Globulin Ratio 1 {ratio} Invalid Interpretation Code 0.9-2.4 [facility] Work Phone: [phone] Alkaline phosphatase (ALP) 72 U/L Invalid Interpretation Code 50-136 [facility] Work Phone: [phone] ALP enzyme act/vol (Bld) 72 U/L Invalid Interpretation Code 50-136 [facility] Work Phone: [phone] Anion gap 5 mmol/L Invalid Interpretation Code 5-15 [facility] Work Phone: [phone] Anion gap 4 molar conc 5 Invalid Interpretation Code 5-15 [facility] Work Phone: [phone] Anion gap molar conc 5 mmol/L 5-15 [facility] Work Phone: [phone] Aspartate aminotransferase (AST) 21 U/L Invalid Interpretation Code 15-37 [facility] Work Phone: [phone] Bilirubin (direct) 0.07 mg/dL Invalid Interpretation Code 0.00-0.30 [facility] Work Phone: 1() 0 Bilirubin (total) 0.20 mg/dL Invalid Interpretation Code 0.20-1.00 [facility] Work Phone: [phone] BUN/Creatinine Ratio 28.9 RATIO High 10-20 [facility] Work Phone: [phone] Calcium 8.2 mg/dL Low 8.5-10.1 [facility] Work Phone: [phone] Chloride 109 mmol/L High 98-107 [facility] Work Phone: [phone] Cholesterol 164 mg/dL Invalid Interpretation Code 200 [facility] Work Phone: [phone] CO2 30.0 mmol/L Invalid Interpretation Code 21.0-32.0 [facility] Work Phone: CO2 ppres (BldV) 30.0 mmol/L Invalid Interpretation Code 21.0-32.0 [facility] Work Phone: [phone] Creatinine 0.62 mg/dL Invalid Interpretation Code 0.55-1.20 [facility] Work Phone: [phone] eGFR (non-black) 130 mL/min/{1.73_m2} Invalid Interpretation Code >60 [facility] Work Phone: [phone] eGFR (non-black) 107 mL/min/{1.73_m2} Invalid Interpretation Code >60 [facility] Work Phone: [phone] EST GFR - AA 130 mL/min Invalid Interpretation Code >60 [facility] Work Phone: [phone] Globulin 3.1 g/dL Invalid Interpretation Code 2.3-3.5 [facility] Work Phone: [phone] Globulin mass conc (S) 3.1 g/dL 2.3-3.5 [facility] Work Phone: [phone] Glucose 87 mg/dL Invalid Interpretation Code 70-110 [facility] Work Phone: [phone] Glucose mass conc 87 mg/dL Invalid Interpretation Code 70-110 [facility] Work Phone: [phone] HDL Cholesterol 66 mg/dL Invalid Interpretation Code [facility] Work Phone: [phone] lactate dehydrogenase - serum 195 U/L Invalid Interpretation Code 84-246 [facility] Work Phone: LDH 195 U/L Invalid Interpretation Code 84-246 [facility] Work Phone: [phone] LDL Cholesterol 87 mg/dL Invalid Interpretation Code 0-130 [facility] Work Phone: [phone] PHOS 3.4 mg/dL Invalid Interpretation Code 2.5-4.9 [facility] Work Phone: Phosphorus Concentratation-Rando m 3.4 mg/dL Invalid Interpretation Code 2.5-4.9 [facility] Work Phone: [phone] Potassium 4.4 mmol/L Invalid Interpretation Code 3.5-5.1 [facility] Work Phone: [phone] Protein 6.3 g/dL Low 6.4-8.2 [facility] Work Phone: [phone] Sodium 144 mmol/L Invalid Interpretation Code 136-145 [facility] Work Phone: [phone] Triglyceride 53 mg/dL Invalid Interpretation Code [facility] Work Phone: [phone] Urate 3.9 mg/dL Invalid Interpretation Code 2.6-6.0 [facility] Work Phone: [phone] Urea nitrogen 18 mg/dL Invalid Interpretation Code 7-18 [facility] Work Phone: [phone] very low density lipoproteins 11 mg/dL Invalid Interpretation Code 5-40 [facility] Work Phone: [phone] Lab Report: Nicotine Urine D rug Screenon 04-15-2016 GE use only - for [employer] import when terms are not otherwise specified Positive High <200 ng/mL [facility] Work Phone: [phone] Lab Report: Urinalysis, Empl oyeeon 04-15-2016 Albumin Ql (U) Negative Invalid Interpretation Code Negative [facility] Work Phone: [phone] Bilirubin Ql (U) Negative Invalid Interpretation Code Negative [facility] Work Phone: [phone] Ketones mass conc (U) Negative Invalid Interpretation Code Negative [facility] Work Phone: [phone] NITRITE UR Negative Invalid Interpretation Code Negative [facility] Work Phone: [phone] Nitrite Urine Negative Invalid Interpretation Code Negative [facility] Work Phone: [phone] Occult Blood, urine Negative Invalid Interpretation Code Negative [facility] Work Phone: [phone] OCCULT BLOOD-UR Negative Invalid Interpretation Code Negative [facility] Work Phone: [phone] pH (U) 7.0 [pH] 5.0 - 8.0 [facility] Work Phone: [phone] specific gravity, urine 1.010 Invalid Interpretation Code 1.002-1.03 0 [facility] Work Phone: [phone] Urine, bilirubin presence Negative Invalid Interpretation Code Negative [facility] Work Phone: [phone] Urine, clarity Clear Invalid Interpretation Code Clear [facility] Work Phone: [phone] Urine, color Yellow Invalid Interpretation Code Yellow [facility] Work Phone: [phone] Urine, glucose presence Normal mg/dl Invalid Interpretation Code Normal [facility] Work Phone: [phone] Urine, ketones presence Negative Invalid Interpretation Code Negative [facility] Work Phone: [phone] Urine, leukocyte esterase presence Negative Invalid Interpretation Code Negative [facility] Medicine and Orthopaedics Work Phone: [phone] Urine, pH 7.0 [pH] Invalid Interpretation Code 5.0 - 8.0 [facility] Medicine and Orthopaedics Work Phone: [phone] Urine, protein Negative Invalid Interpretation Code Negative [facility] Sports Medicine and Orthopaedics Work Phone: [phone] UROBILI Normal mg/dl Invalid Interpretation Code Normal [facility] Medicine and Orthopaedics Work Phone: [phone] urobilinogen, urine, by dipstick Normal mg/dl Invalid Interpretation Code Normal [facility] Medicine and Orthopaedics Work Phone: [phone] Clinical Lists Update: 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 Ginna Kowalski MD Work Phone: [facility] 05-08-2025 17:10-0400 Body temperature 97.9 [degF] Dr. Ginna Kowalski MD Work Phone: [facility] 05-08-2025 17:10-0400 Body weight 72.[address] Ginna Kowalski MD Work Phone: [facility] 05-08-2025 17:10-0400 Diastolic blood pressure 77 mm[Hg] Dr. Ginna Kowalski MD Work Phone: [facility] 05-08-2025 17:10-0400 Heart rate 73 /min Dr. Ginna oKwalski MD Work Phone: [facility] 05-08-2025 17:10-0400 Respiratory rate 14 /min Dr. Ginna Kowalski MD Work Phone: [facility] 05-08-2025 17:10-0400 SaO2% (BldA) [Mass fraction] 99 % Dr. Ginna Kowalski MD Work Phone: [facility] 05-08-2025 17:10-0400 Systolic blood pressure 113 mm[Hg] Dr. Ginna Kowalski MD Work Phone: [facility] 05-08-2025 13:25-0400 Body height 167.[address] Ginna Kowalski MD Work Phone: [facility] 03-31-2025 17:09-0400 Body temperature 97.8 [degF] Dr. Ginna Kowalski MD Work Phone: [facility] 03-31-2025 17:09-0400 Diastolic blood pressure 65 mm[Hg] Dr. Ginna Kowalski MD Work Phone: [facility] 03-31-2025 17:09-0400 Heart rate 66 /min Dr. Ginna Kowalski MD Work Phone: [facility] 03-31-2025 17:09-0400 Respiratory rate 12 /min Dr. Ginna Kowalski MD Work Phone: [facility] 03-31-2025 17:09-0400 SaO2% (BldA) [Mass fraction] 98 % Dr. Ginna Kowalski MD Work Phone: [facility] 03-31-2025 17:09-0400 Systolic blood pressure 136 mm[Hg] Dr. Ginna Kowalski MD Work Phone: [facility] 03-31-2025 15:31-0400 Body height 167.[address] Ginna Kowalski MD Work Phone: [facility] 03-31-2025 15:31-0400 Body mass index (BMI) [Ratio] 33.3 kg/m2 Dr. Ginna Kowalski MD Work Phone: [facility] 03-31-2025 15:31-0400 Body weight 93.[address] Ginna Kowalski MD Work Phone: [facility] 02-21-2025 13:00-0400 Body temperature 97.4 [degF] Dr. Ginna Kowalski MD Work Phone: [facility] 02-21-2025 13:00-0400 Diastolic blood pressure 59 mm[Hg] Dr. Ginna Kowalski MD Work Phone: [facility] 02-21-2025 13:00-0400 Heart rate 62 /min Dr. Ginna Kowalski MD Work Phone: [facility] 02-21-2025 13:00-0400 Inhaled oxygen flow rate 4 L/min Dr. Ginna Kowalski MD Work Phone: [facility] 02-21-2025 13:00-0400 Respiratory rate 16 /min Dr. Ginna Kowalski MD Work Phone: [facility] 02-21-2025 13:00-0400 SaO2% (BldA) [Mass fraction] 99 % Dr. Ginna Kowalski MD Work Phone: [facility] 02-21-2025 13:00-0400 Systolic blood pressure 121 mm[Hg] Dr. Ginna Kowalski MD Work Phone: [facility] 02-21-2025 06:53-0400 Body height 167.[address] Ginna Kowalski MD Work Phone: [facility] 02-21-2025 06:53-0400 Body mass index (BMI) [Ratio] 32.7 kg/m2 Dr. Ginna Kowalski MD Work Phone: [facility] 02-21-2025 06:53-0400 Body weight [address] Ginna Kowalski MD Work Phone: [facility] 12-17-2023 20:58-0400 Body temperature 97 [degF] [facility] 12-17-2023 20:58-0400 Diastolic blood pressure 58 mm[Hg] [facility] 12-17-2023 20:58-0400 Heart rate 61 /min [facility] 12-17-2023 20:58-0400 Respiratory rate 16 /min [facility] 12-17-2023 20:58-0400 SaO2% (BldA) [Mass fraction] 94 % [facility] 12-17-2023 20:58-0400 Systolic blood pressure 146 mm[Hg] [facility] 12-17-2023 12:56-0400 Body height 167.64 cm [facility] 12-17-2023 12:56-0400 Body mass index (BMI) [Ratio] 32.4 kg/m2 [facility] 12-17-2023 12:56-0400 Body weight 91.17 kg [facility] 12-16-2023 12:00-0400 Body temperature 97.8 [degF] [facility] 12-16-2023 12:00-0400 Diastolic blood pressure 62 mm[Hg] [facility] 12-16-2023 12:00-0400 Heart rate 55 /min [facility] 12-16-2023 12:00-0400 Respiratory rate 16 /min [facility] 12-16-2023 12:00-0400 SaO2% (BldA) [Mass fraction] 97 % [facility] 12-16-2023 12:00-0400 Systolic blood pressure 154 mm[Hg] [facility] 12-16-2023 11:06-0400 Body mass index (BMI) [Ratio] 34.2 kg/m2 [facility] 12-16-2023 11:06-0400 Body weight 96.1 kg [facility] 12-16-2023 10:28-0400 Body height 167.64 cm [facility] 12-14-2023 12:49-0400 Body height 167.64 cm [facility] 12-14-2023 12:49-0400 Body temperature 98.2 [degF] [facility] 12-14-2023 12:49-0400 Diastolic blood pressure 63 mm[Hg] [facility] 12-14-2023 12:49-0400 Heart rate 69 /min [facility] 12-14-2023 12:49-0400 Respiratory rate 16 /min [facility] 12-14-2023 12:49-0400 SaO2% (BldA) [Mass fraction] 94 % [facility] 12-14-2023 12:49-0400 Systolic blood pressure 122 mm[Hg] [facility] 06-21-2023 19:29-0400 Diastolic blood pressure 70 mm[Hg] [facility] 06-21-2023 19:29-0400 Heart rate 64 /min [facility] 06-21-2023 19:29-0400 Respiratory rate 18 /min [facility] 06-21-2023 19:29-0400 SaO2% (BldA) [Mass fraction] 98 % [facility] 06-21-2023 19:29-0400 Systolic blood pressure 129 mm[Hg] [facility] 06-21-2023 16:10-0400 Body height 167.64 cm [facility] 06-21-2023 16:10-0400 Body mass index (BMI) [Ratio] 31.8 kg/m2 [facility] 06-21-2023 16:10-0400 Body temperature 97.3 [degF] [facility] 06-21-2023 16:10-0400 Body weight 89.4 kg [facility] 01-13-2016 07:51-0400 BMI (Body Mass Index) 25.82 kg/m2 [facility] Medicine and Orthopaedics Work Phone: 01-13-2016 07:51-0400 Body Temperature 98.1 [degF] [facility] Sports Medicine and Orthopaedics Work Phone: 01-13-2016 07:51-0400 BP Diastolic 72 mm[Hg] [facility] Sports Medicine and Orthopaedics Work Phone: 01-13-2016 07:51-0400 BP Systolic 128 mm[Hg] [facility] Medicine and Orthopaedics Work Phone: 01-13-2016 07:51-0400 BSA (Body Surface Area) 1.82 m2 [facility] Medicine and Orthopaedics Work Phone: 01-13-2016 07:51-0400 Pulse (Heart Rate) 65 /min [facility] Medicine and Orthopaedics Work Phone: 01-13-2016 07:51-0400 Pulse Oximetry 98 % [facility] Medicine [facility] Orthopaedics Work Phone: 01-13-2016 07:51-0400 Respiratory Rate 16 /min [facility] Medicine and Orthopaedics Work Phone: 01-13-2016 07:51-0400 Weight 72.58 kg Marysol Juarez [facility] Sports Medicine and Orthopaedics Work Phone: 05-01-2014 14:35-0400 Height 167.64 cm Marysol Juarez [facility] Medicine and Orthopaedics Work Phone: Encounters Encounter Date Encounter Type Care Provider Facility Start: 06-23-2025 ambulatory Markel Leyva Facility: [facility] Start: 05-08-2025 ambulatory Panda Ricks Facility:[facility] Start: 05-08-2025 End: 05-08-2025 Emergency department patient visit Dr. Ginna Kowalski MD Work Phone: -Emergency Department Work Phone: Start: 03-31-2025 End: 03-31-2025 Emergency department patient visit Dr. Ginna Kowalski MD Work Phone: -Emergency Department Work Phone: Start: 03-13-2025 Non-patient / Non-visit Emmie Tobin ch SEXUAL ABUSE COUNSELLOR-C -[facility] Work Phone: Start: 03-13-2025 ambulatory mEmie Ramirez SEXUAL ABUSE COUNSELLOR Facil ity:[facility] Start: 02-21-2025 End: 02-21-2025 Admission to same day surgery center Dr. Markel Leyva DPM [facility] Start: 02-21-2025 End: 02-21-[address] Ginna Kowalski MD Work Phone: [facility] Work Phone: Start: 02-11-2025 Encounter for genera l adult medical examination without abnormal findings Saul Vaca [facility] Start: 02-10-2025 Encounter for other preprocedural examination Ginna Kowalski [facility] Start: 02-07-2025 End: 02-07-[address] Ginna Kowalski MD Work Phone: [facility] Work Phone: Start: 02-07-2025 End: 02-07-[address] Saul Vaca MD -Laboratory Work Phone: Start: 02-07-2025 End: 02-07-2025 ambulatory [facility] Facility:[facility] Start: 01-18-2025 End: 01-18-[address] Ginna Kowalski MD Work Phone: [facility] Work Phone: Start: 01-18-2025 End: 01-18-[address] Ginna Kowalski MD -Laboratory,[facility] Work Phone: Start: 01-18-2025 End: 01-18-2025 ambulatory [facility] Facility:[facility] Start: 12-23-2024 Non-patient / Non-visit [facility] Start: 12-23-2024 End: 12-23-[address] Ginna Kowalski MD Work Phone: [facility] Work Phone: Start: 12-23-2024 End: 12-23-[address] Ginna Kowalski MD -Cardiovascular Services Work Phone: Start: 12-23-2024 End: 12-23-2024 ambulatory [facility] Facility:[facility] Start: 12-19-2024 End: 12-19-[address] Ginna Kowalski MD Work Phone: [facility] Work Phone: Start: 12-19-2024 End: 12-19-[address] Markel Leyva DPM -[facility] Work Phone: Start: 12-19-2024 End: 12-19-2024 ambulatory Markel Leyva Facility:[facility] Start: 07-22-2024 End: 07-22-2024 [facility] Start: 07-01-2024 ambulatory Leidy Crawford Facility:[facility] Start: 12-17-2023 End: 12-17-2023 Emergency department patient visit [facility]-Emergency Department Work Phone: Start: 12-16-2023 End: 12-16-2023 Emergency department patient visit [facility]-Emergency Department Work Phone: Start: 12-14-2023 End: 12-14-2023 Emergency department patient visit [facility]-Emergency Department Work Phone: Start: 06-21-2023 End: 06-21-2023 Emergency department patient visit [facility]-Emergency Department Work Phone: Start: 04-26-2022 End: 04-26-[address] Leidy Crawford Work Phone: [facility]-Radiology, [facility] Start: 04-21-2022 End: 04-21-[address] Leidy Crawford Work Phone: [facility] Start: 12-21-2018 End: 12-21-2018 Patient encounter procedure SHAYY ELIZABETH Facility:[facility] Procedures Date Procedure Procedure Detail Performing [...] Work Phone: Comment on above: Test Ordered: [id number] 25-Hydroxyvitamin D LCMS D2+J409-[id number], Vitamin D 16 [L ] ng/mL ES Reference Range: .Reference Range:All Ages: Target levels 30 - 12268-Ksoxhcc, Vitamin D-2 <1.0 ng/mL ES Reference Range: .This test was developed and its performance characteristicsdetermined by [email or web address]. It has not been cleared or approvedby the Food and Drug Administration.25-Hydroxy, Vitamin D-3 15 ng/mL ES Reference Range: .This test was developed and its performance characteristicsdetermined by [email or web address]. It has not been cleared or approvedby the Food and Drug Administration.Performed at: - [facility] [id number] [place] [address] [id number] Director: Cristino Singleton MD, Phone: [phone] at: [address] [id number] Director: Miguel Benton PhD, Phone: [phone] Start: 01-18-[address] Ginna Kowalski MD Work Phone: Comment on above: This test was developed and its performa nce characteristicsdetermined by [email or web address]. It has not been cleared orapproved by the Food and Drug Administration.Cotinine levels greater than 20.0 are consistent with theuse of tobacco or tobacco cessation products.Performed at: [facility] [employer] [id number] Director: Natacha Hays MD, Phone: [phone] Start: 12-19-2024 MRI of joint of lower [...] Activity Detail Author Start: 05-08-2025 End: 05-08-2025 [facility] Start: 05-08-2025 Foot min 3 Views Foot min 3 Views [facility] Start: 05-08-2025 US.doppler Lower extremity vein [facility] Start: 05-08-2025 XR Foot GE 3 Views [facility] Start: 03-31-2025 [facility] Start: 02-21-2025 Anes open proc bones lower leg/ankle/foot nos ANESTH LOWER LEG BONE SURG [facility] Start: 02-21-2025 Diagnostic bone marrow aspirations DX BONE MARROW ASPIRATIONS [facility] Start: 02-21-2025 Endoscopic plantar fasciotomy SCOPE PLANTAR FASCIOTOMY [facility] Start: 02-21-2025 Injection aa&/strd femoral nerve NJX AA&/STRD FEMORAL NRV IMG [facility] Start: 02-21-2025 Injection aa&/strd other peripheral nerve/branch NJX AA&/STRD OTHER PN/BRANCH [facility] Start: 02-21-2025 Ostectomy tarsal coalition REVISION OF FOOT [facility] Start: 02-21-2025 Osteot w/wo lngth shrt/corrj 1st metar INCISION OF METATARSAL [facility] Start: 02-21-2025 Osteotomy calcaneus w/wo internal fixation INCISION OF HEEL BONE [facility] Start: 02-21-2025 Tr/trnspl 1 tdn w/musc redirion/rerouting supfc REVISE LOWER LEG TENDON [facility] Start: 02-21-2025 Patient discharge [facility] Start: 01-18-2025 Procedure [facility] Start: 01-18-2025 Nicotine measurement [facility] Start: 12-17-2023 [facility] Start: 12-16-2023 [facility] Start: 12-14-2023 [facility] Start: 06-21-2023 [facility] Start: 07-20-2017 End: 07-20-2017 Appointment Appointment [facility] Medicine [facility] Orthopaedics Work Phone: Start: 07-14-2017 End: 07-14-2017 Appointment Appointment [facility] Work Phone: Start: 07-04-2017 End: 07-04-2017 Appointment Appointment [facility] Work Phone: Start: 06-29-2017 End: 06-29-2017 Appointment Appointment [facility] Work Phone: Start: 06-09-2017 End: 06-09-2017 Radiologic exam knee complete 4/more views X-Ray, Knee [facility] Work Phone: Start: 06-01-2017 End: 06-01-2017 Appointment Appointment [facility] Work Phone: Start: 04-27-2017 End: 04-27-2017 Appointment Appointment [facility] Work Phone: Start: 04-13-2017 End: 04-13-2017 Appointment Appointment [facility] Work Phone: Start: 03-29-2017 End: 03-29-2017 Appointment Appointment [facility] Work Phone: Start: 03-10-2017 End: 03-10-2017 Appointment Appointment [facility] Work Phone: Start: 02-17-2017 End: 02-17-2017 Appointment Appointment [facility] Work Phone: Start: 01-23-2017 End: 01-23-2017 Mri any jt lower extrem w/o contrast matrl MRI Joint Lower Extremity [facility] Work Phone: Start: 01-23-2017 End: 01-23-2017 Mri jnt of lwr extre w/o dye MRI Joint Lower Extremity [facility] Work Phone: Start: 01-17-2017 End: 01-17-2017 *BFRW - Body Fluid RBC, WBC & DIFF *BFRW - Body Fluid RBC, WBC & DIFF [facility] Work Phone: Start: 01-17-2017 End: 01-17-2017 Bacteria identified in Body fluid by Culture *CUBF- Culture, Body Fluid [facility] Work Phone: Start: 01-17-2017 End: 01-17-2017 Crystals [type] in Body fluid by Light microscopy *PAO - Crystals, Body Fluid [facility] Work Phone: Start: 01-17-2017 End: 01-17-2017 Glucose [Mass/volume] in Body fluid *GLUBF - Glucose, Body Fluid [facility] Work Phone: Start: 01-17-2017 End: 01-17-2017 Protein in fluid *PROBF - Protein, Body Fluid [facility] Work Phone: Start: 01-17-2017 End: 01-17-2017 Appointment Appointment [facility] Work Phone: Start: 01-17-2017 End: 01-17-2017 *BFRW - Body Fluid RBC, WBC & DIFF *BFRW - Body Fluid RBC, WBC & DIFF [facility] Work Phone: Start: 01-17-2017 End: 01-17-2017 Bacteria identified in Body fluid by Culture *CUBF- Culture, Body Fluid [facility] Work Phone: Start: 01-17-2017 End: 01-17-2017 Crystals [type] in Body fluid by Light microscopy *PAO - Crystals, Body Fluid [facility] Work Phone: Start: 01-17-2017 End: 01-17-2017 Glucose *GLUBF - Glucose, Body Fluid [facility] Work Phone: Start: 01-17-2017 End: 01-17-2017 Glucose mass conc (Body fld) *GLUBF - Glucose, Body Fluid [facility] Work Phone: Start: 01-17-2017 End: 01-17-2017 Protein in fluid *PROBF - Protein, Body Fluid [facility] Work Phone: Start: 01-16-2017 End: 2017 Radiologic exam knee complete 4/more views X-Ray, Knee [facility] Work Phone: Start: 01-16-2017 End: 2017 X-ray exam, knee, 4 or more X-Ray, Knee [facility] Work Phone: Cotinine measurement [facility] Nicotine [Mass/volum e] in Serum or Plasma [facility] Patient Education [facility] Medicine [facility] Orthopaedics Work Phone: Patient referral [facility] Work Phone: Immunizations Immunization Date Immunization Notes Care Provider [facility] 07-11-2024 influenza, seasonal, injectable, preservative free Dr. Gnina Kowalski MD Work Phone: [facility] 07-27-2023 influenza, injectabl e, quadrivalent, preservative free [facility] 06-29-2022 influenza, injectabl e, quadrivalent, preservative free [facility] 10-12-2020 Covid (Moderna) Dr. Leidy bland Work Phone: [facility] 09-14-2020 Covid (Moderna) Dr. Leidy bland Work Phone: [facility] 06-29-2020 influenza, injectabl e, quadrivalent, preservative free [facility] 06-29-2020 influenza, seasonal, injectable Dr. Leidy Crawford Work Phone: [facility] Work Phone: 06-20-2019 influenza, injectabl e, quadrivalent, preservative free [facility] 06-20-2019 influenza, seasonal, injectable Dr. Leidy Crawford Work Phone: [facility] Work Phone: 06-08-[address] Leidy Crawford Work Phone: [facility] 06-08-2018 influenza, injectabl e, quadrivalent, preservative free [facility] 06-08-2018 influenza, seasonal, injectable Dr. Leidy Crawford Work Phone: [facility] Work Phone: 06-07-2017 influenza, injectabl e, quadrivalent, preservative free [facility] 06-07-2017 influenza, seasonal, injectable Dr. Leidy Crawford Work Phone: [facility] Work Phone: 06-09-2016 influenza, injectabl e, quadrivalent, preservative free [facility] 06-09-2016 influenza, seasonal, injectable Dr. Leidy Crawford Work Phone: [facility] Work Phone: 06-15-2015 influenza, injectabl e, quadrivalent, preservative free [facility] 06-15-2015 influenza, seasonal, injectable Dr. Leidy Crawford Work Phone: [facility] Work Phone: 06-11-2014 influenza, injectabl e, quadrivalent, preservative free [facility] 06-11-2014 influenza, seasonal, injectable Dr. Leidy Crawford Work Phone: [facility] Work Phone: 10-03-2013 tetanus toxoid, redu artemio diphtheria toxoid, and acellular pertussis vaccine, adsorbed Dr. Leidy Crawford Work Phone: [facility] Payers Date Payer Category Payer Unknown [id number] 2024 Self-pay [id number] 2016 Unknown [id number] 1965 Unknown [id number] [id number] Self-pay [id number] Unknown [id number] 2.16.8 [id number] Unknown [id number] 2.16.8 [id number] Unknown [id number] 2.16.8 [id number] Unknown [id number] 2.16.8 [id number] Unknown [id number] 2.16.8 [id number] Unknown [id number] 2.16.8 [id number] Unknown [id number] 2.16.8 [id number] Unknown [id number] 2.16.8 [id number] Unknown [id number] 2.16.8 [id number] Unknown [id number] [id number] Unknown [id number] 2.16.8 [id number] Unknown [id number] 2.16.8 [id number] Unknown [id number] [id number] [id number] Social History Date Type Detail Facility Start: 02-29-2020 End: 12-17-2023 Tobacco smoking status NHIS Unknown if ever smoked [facility] Start: 07-19-2021 Occasional [facility] Start: 07-19-2021 None [facility] Start: 07-19-2021 Alone [facility] Start: 07-19-2021 Cigarettes [facility] Start: 1965 Sex Assigned At Female [facility] Start: 12-17-2023 End: 05-08-2025 Tobacco smoking status NHIS Smokes tobacco daily (finding) [facility] Start: 12-23-2024 End: 12-26-2024 Sex Female (finding) [facility] Not [facility] NEGATED: Highlighted row Not [facility] Medical Equipment Procedure Code Equipment Code Equipment [...] Fusion, talonavicular joint Orthopaedic bone screw (non-sliding) ()[id number] FDA Start: 02-21-2025 Fusion, talonavicular joint Orthopaedic bone screw (non-sliding) ()[id number] FDA Start: 02-21-2025 Fusion, talonavicular joint 2.7mm [...] Result Facility 02-21-2025 Cognitive function Light Pain [facility] Work Phone: 02-21-2025 Cognitive function Patient Kvng morocho Person;Place;Time [facility] Work Phone: Clinical Notes 12-17-2023 to 05-08-2025 Note Date & Type Note Facility 05-08-2025 Radiology Diagnostic study note [facility] Imaging Services [address] [place] [address] Foot min 3 Views MR#: [id number] Acct: [id number] Name: DARWIN PORTILLO Rep #: [id number] : 1965 F 60 From: Chris Noblse MD PCP: Dr. Ginna Kowalski MD Status: REG ER Study:Foot min 3 Views Date of Exam: Exam# [id number] Ordering Dr: Karen Gonzales DO PROCEDURE: FOOT [...] at the 1st tarsometatarsal joint. Reading Location: [id number] CC: Dr. Melissa Gonzales DO; Dr. 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 Continue on her [...] % (Auto) 55.3 Lymph % (Auto) 35.6 Knox % (Auto) 6.9 Eos % (Auto) 1.1 [...] (50,000 unit) capsule 1,250 mcg PO QWEEK lyuenvmggd-fbcdvroual-ivn-cod [id number] mg capsule 1 cap PO Q4H PRN [...] MD [Primary Care Provider] - Print Language: Georgian What to do if you have Problems For any increased pain, shortness of breath, bleeding, nausea or vomiting, chestpain, or any unexpected problems, contact your Primary Care Provider. Call [facility] ([phone]) or report to the closest Emergency Room. Call 911 if necessary. 03/31/25 1632 <Electronically signed by Per Marrero MD> Cosigner Signature (if applicable): CC: Dr. Ginna Kowalski MD ~ Signed [facility] Work Phone: 1(711) 818-937706-13-2025 Consult note [facility] Medical Records Department [address] [place] [id number] Anesthesia Postop Eval I 02/21/25 1238 MR#: [id number] Acct: [id number] Name: DARWIN PORTILLO Rep #:[id number] : 1965 60 From: Sheree cheatham CRNA PCP: Dr. Ginna Kowalski MD [place] [facility] [place] C Location: [place] [address] Anesthesia: Postop Eval I Current Vital Signs [...] Eval 1 completed: Yes 02/21/25 1238 nski APPLIANCES SAMPLE MAKER> Date _ Sheree Simpson APPLIANCES SAMPLE MAKER Cosigner Signature: Date CC: ~ Signed [facility]06-13-2025 Consult note [facility] Medical Records Department [address] [place] [address] Anesthesia Postop Eval II 02/21/25 1255 MR#: [id number] Acct: [id number] Name: DARWIN PORTILLO Rep #:[id number] : 1965 60 From: Edgardo Toth MD PCP: Dr. Ginna Kowalski MD Status:[place] [facility] [place] C Location: [place] [address] Anesthesia Postop Eval I Sum Postop Eval Completion status Anesthesia document: Postop Eval 1 completed: Yes Anesthesia Postop Eval I Summary Anesthesia Postop Eval I Summary: Anesthesia Postop Eval I: Assessment Summary Airway patent Yes 02/21/25 12:38 APPLIANCES SAMPLE MAKER.SKOBY Spontaneous unlabored Yes 02/21/25 12:38 APPLIANCES SAMPLE MAKER.HENRRYOBClifton respirations Mental status Awake,Calm 02/21/25 12:38 APPLIANCES SAMPLE MAKER.SKOBY nausea No 02/21/25 12:38 APPLIANCES SAMPLE MAKER.SKOBY Vomiting No 02/21/25 12:38 APPLIANCES SAMPLE MAKER.SKOBY Anesthesia Postop Eval I: Fluid Summary Crystalloid volume administer 1,200 02/21/25 12:38 APPLIANCES SAMPLE MAKER.SKOBY (ml) Colloids volume administered ( ml) Blood Product volume administered (ml) Total IV fluid infused 1,200 02/21/25 12:38 APPLIANCES SAMPLE MAKER.SKOBY Anesthesia Postop Eval I: Summary Notes Anesthesia Complication No 02/21/25 12:38 APPLIANCES SAMPLE MAKER.SKOBY Anesthesia Complication Comment: Post-operative progress note Anesthesia: Postop Eval II Evaluation Mental status: Awake Pain Level: 2 nausea: No Vomiting: No 02/21/25 1255 > Date _ Edgardo Mcmanusignvivien Signature: Date CC: ~ Signed [facility]06-13-2025 Radiology Diagnostic study note [facility] Imaging Services [address] [place] [address] Foot min 3 Views MR#: [id number] Acct: [id number] Name: DARWIN PORTILLO Rep #: [id number] : 1965 F 60 From: Katarina Taveras MD PCP: Dr. Ginna Kowalski MD Status: [facility] Study:Foot min 3 Views Date of Exam: Exam# [id number] Ordering Dr: Alvarado Leyva DPM EXAM: XR [...] ALBERTO Leyva; Dr. Ginna Kowalski MD ~ Travel Professional: Signed [facility]06-13-2025 Consult note Author Edgardo Toth [facility] Note Date/Time February 21, 2025 6:44 am [facility] Medical Records Department [address] [place] [address] Pre-Anesthesia Evaluation 02/21/25 0643 MR#: [id number] Acct: [id number] Name: DARWIN PORTILLO Rep #:[id number] : 1965 60 From: Edgardo Toth MD PCP: Dr. 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..] Tobacco Use History Tobacco Use History - 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: Tobacco Use History - 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 Tobacco Use Cigarettes 07/19/21 08:09 Smoking Status Current every day smoker 02/07/25 09:20 Hx Tobacco Use Yes 02/07/25 09:20 Years Smoking Packs Smoked per Day Smoking Cessation Date was within the last 15 years Hx Smoking Cessation Date Hx Smoking Cessation Counseling Hematologic Medial History Hematologic Hx - 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: 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 Hx of Blood Transfusion No 02/07/25 09:20 [...] confused, unrespo /Reproduction History /Reproductive History - 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: /Reproductive Hx- 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 Hx Now No 02/07/25 09:20 Gestational Age [...] MD Cosigner Signature: Date CC: ~ Signed [facility] Work Phone: 1(781) 629-877706-13-2025 Evaluation note* Diagnosis Onset Date Resolution Status Admit Date Cavus deformity of left foot acute February 21, 2025 5:46am Other specified congenital deformities of feet acute February 21, 2 025 5:46am Pain in left foot acute February 212024 5:46am Primary osteoarthritis, left ankle and foot acute February 21, 2025 5:46am [facility] Work Phone: 1(780) 373-586506-13-2025 Consult note [facility] Medical Records Department [address] [address] Pre-Anesthesia Evaluation 02/21/25 0643 MR#: [id number] Acct: [id number] Name: DARWIN PORTILLO Rep #:[id number] : 1965 60 From: Edgardo Toth MD PCP: Dr. 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..] Tobacco Use History Tobacco Use History - 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: Tobacco Use History - 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 Tobacco Use Cigarettes 07/19/21 08:09 Smoking Status Current every day smoker 02/07/25 09:20 Hx Tobacco Use Yes 02/07/25 09:20 Years Smoking Packs Smoked per Day Smoking Cessation Date was within the last 15 years Hx Smoking Cessation Date Hx Smoking Cessation Counseling Hematologic Medial History Hematologic Hx - 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: 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 Hx of Blood Transfusion No 02/07/25 09:20 [...] confused, unrespo /Reproduction History /Reproductive History - 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: /Reproductive Hx- 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 Hx Now No 02/07/25 09:20 Gestational Age [...] MD Cosigner Signature: Date CC: ~ Signed [facility]04-07-2024 Discharge summary Author Per Marrero [facility] December 17, 2023 8:54pm Note Date/Time December 17, 2023 1:39 pm [facility] Medical Records Department [address] [place] [address] Emergency Department Summary 12/17/23 MR#: [id number] Acct: [id number] Name: DARWIN PORTILLO Rep #:[id number] : 1965 58 From: Per Marrero MD [...] your Primary Care Provider. Call [facility] ([phone]) or report to the closest Emergency Room. Call 911 if necessary. 12/17/232053 <Electronically signed by Per Marrero MD> Cosigner Signature (if applicable): CC: Dr. Leidy Crawford DO ~ Signed [facility] Work Phone: Consult note Author Sheree Simpson [facility] Note Date/Time February 21, 2025 1:38 pm [facility] Medical Records Department [address] [place] [address] Anesthesia Postop Eval I 02/21/25 1238 MR#: [id number] Acct: [id number] Name: DARWIN PORTILLO Rep #:[id number] : 1965 60 From: Sheree cheatham APPLIANCES SAMPLE MAKER PCP: Dr. Ginna Kowalski MD Status:REG SD Y Race: C Location: [place] [address] Anesthesia: Postop Eval I Current Vital Signs [...] CRNA Cosigner Signature: Date CC: ~ Signed [facility] Work Phone: Consult note Author Edgardo Toth [facility] Note Date/Time February 21, 2025 1:38 pm [facility] Medical Records Department [address] [address] Anesthesia Postop Eval II 02/21/25 1255 MR#: [id number] Acct: [id number] Name: DARWNI PORTILLO Rep #:[id number] : 1965 60 From: Edgardo Toth MD PCP: Dr. Ginna Kowalski MD Status:REG SDC Y Race: C Location: [place] [address] Anesthesia Postop Eval I Sum Postop Eval Completion status Anesthesia document: Postop Eval 1 completed: Yes Anesthesia Postop Eval I Summary Anesthesia Postop Eval I Summary: Anesthesia Postop Eval I: Assessment Summary Airway patent Yes 02/21/25 12:38 APPLIANCES SAMPLE MAKER.SKOBY Spontaneous unlabored Yes 02/21/25 12:38 APPLIANCES SAMPLE MAKER.SKOBY respirations Mental status Awake,Calm 02/21/25 12:38 APPLIANCES SAMPLE MAKER.SKOBY nausea No 02/21/25 12:38 APPLIANCES SAMPLE MAKER.SKOBY Vomiting No 02/21/25 12:38 APPLIANCES SAMPLE MAKER.SKOBY Anesthesia Postop Eval I: Fluid Summary Crystalloid volume administer 1,200 02/21/25 12:38 APPLIANCES SAMPLE MAKER.SKOBY (ml) Colloids volume administered ( ml) Blood Product volume administered (ml) Total IV fluid infused 1,200 02/21/25 12:38 APPLIANCES SAMPLE MAKER.SKOBY Anesthesia Postop Eval I: Summary Notes Anesthesia Complication No 02/21/25 12:38 APPLIANCES SAMPLE MAKER.SKOBY Anesthesia Complication Comment: Post-operative progress note Anesthesia: Postop Eval II Evaluation Mental status: Awake Pain Level: 2 nausea: No Vomiting: No 02/21/25 1255 <Electronically signed by Edgardo Toth MD > Date _ Edgardo Toth MD Cosigner Signature: Date CC: ~ Signed [facility] Work Phone: Evaluation noteNo assessment information available [facility] Work Phone: Hospital Discharge instructions Additional Instructions Motrin and Tylenol and pain meds as needed for pain. Plenty of fluids and rest. Continue antibiotics orally and/or follow-up for further IV antibiotics. Follow-up with a local dentist to have that tooth pulled.[facility] Work Phone: Hospital Discharge instructions Additional Instructions [...] letting me be involved in your surgical care![facility] Work Phone: Hospital Discharge instructionsAdditional Instructions Zofran as needed for nausea. Plenty of fluids and rest. Continue your Protonix. Follow-up with your primary care physician with any further bleeding or return to the emergency department.[facility] Work Phone: Hospital Discharge instructionsAdditional Instructions Please follow-up with Dr. Aguero's office tomorrow for recheck. If you have any issues feel free to call have his personal phone number [phone]. Your workup today was very reassuring with [...] feel better to then advance your walking again.[facility] Work Phone: Reason for referral (narrative)No reason for referral information availableWooAdena [facility] Work Phone: Summary Purpose Family History No [...] No February 29, 2020 1:05pm Power of Manager Music No February 28 1:05pm Advance Directive Response Recorded Date/ Time Advance Directives No May 01, 2014 9:39am Living Will No June 21 7:32pm Power of Manager Music No June 21, 2023 7:32pm Advance Directive Response Recorded Date/ Time Advance Directives No May 01, 2014 9:39am Living Will No December 14, 2023 12:52pm Power of Manager Music No December 13 12:52pm Advance Directive Response Recorded Date/ Time Advance Directives No May 01, 2014 9:39am Living Will No December 16, 2023 10:43am Power of Manager Music No December 15 10:43am Advance Directive Response Recorded Date/ Time Advance Directives No May 01, 2014 9:39am Living Will No December 17, 2023 12:59pm Power of Manager Music No December 16 12:59pm Advance Directive Response Recorded Date/ Time Living Will No December 17, 2023 12:59pm Do you have a Healthcare Power of Manager Music? No December 17, 2023 12:59pm Advance Directives No May 01, 2014 9:39am Advance Directive Response Recorded Date/ Time Living Will No December 17, 2023 12:59pm Do you have a Healthcare Power of Manager Music? No December 17, 2023 12:59pm Do you have a Healthcare Power of Manager Music? No February 07, 2025 9:20am Advance Directives No May 01, 2014 9:39am Advance Directive Response Recorded Date/ Time Living Will No December 17, 2023 12:59pm Do you have a Healthcare Power of Manager Music? No December 17, 2023 12:59pm Do you have a Healthcare Power of Manager Music? No February 07, 2025 9:20am Do you have a Healthcare Power of Manager Music? No March 31, 2025 3:56pm Advance Directives No May 01, 2014 9:39am Advance Directive Response Recorded Date/ Time Do you have a Healthcare Power of Manager Music? No February 07, 2025 9:20am Do you have a Healthcare Power of Manager Music? No May 08, 2025 3:37pm Do you have a Healthcare Power of Manager Music? No March 31, 2025 3:56pm Advance Directives [...] E ORDER February 07, 2025 12:42 pm [place] of bone marrow aspirate Tarah starks February [...] E ORDER February 07, 2025 12:42 pm [place] of bone marrow aspirate Tarah starks February 21, 2025 5:46am Amb Documentation March 13, 2025 1:07p m NAUSEA/VOMITING March 31, 2025 3:31 pm Chief Complaint Admit Date PRE OP LABS January 18, 2025 2:19p m E ORDER February 07, 2025 12:42 pm [place] of bone marrow aspirate Tarah starks February 21, 2025 5:46am Amb Documentation March 13, 2025 1:07p m NAUSEA/VOMITING March 31, 2025 3:31 pm INCREASED FOOT PAIN May 08, 2025 1: 25pm Additional Source Comments INFORMATION SOURCE (unrecogn ized section and content) DATE CREATED AUTHOR 01/04/2019 [facility] DATE CREATED AUTHOR AUTHOR'S ORGANIZ ATION 01/04/2019 [facility] DATE CREATED AUTHOR AUTHOR'S ORGANIZ ATION 06/24/2025 [facility] Goals (unrecognized section and content) Goals may [...] Active Start: March 13, 2025 Emmie Ramirez SEXUAL ABUSE COUNSELLOR, SEXUAL ABUSE COUNSELLOR-C Attending Provider Active Start: March 13, 2025 [...] Active Start: March 13, 2025 Emmie Ramirez SEXUAL ABUSE COUNSELLOR, SEXUAL ABUSE COUNSELLOR-C Attending Provider Active Start: March 13, 2025 Team Status: Inactive Member Role/Relationship Status Dates Dr. Ginna Kowalski MD Primary Care Provider Active Start: March 31, 2025 End: March 31, 2025 Dr. Per Marrero MD Attending Provider Active S tart: March [...] BE BASED ON THE PRIMARY CLINICAL RECORDS. [facility] Android App Review Source [facility]. provides no warranty or guarantee of the accuracy or completeness of information in this document.
[2025-06-28 08:29] LABS: Absolute Nucleated RBC Count 0.00 10^3/uL (0-5); Hematocrit 37.6 % (37-47); Hemoglobin 12.3 g/dL (12.0-15.0); Mean Corp Hgb Conc 32.7 g/dL (32-36); Mean Corpuscular Volume 97.4 fL (81-99); Mean Platelet Vol. 8.4 fl (6.2-12.0); NRBC Flagged by Analyzer 0 % (0-5); Platelet Count 339 K/mm3 (150-450); RBC Distribution Width CV 13.6 % (11.6-14.6); RBC Distribution Width SD 48.6 fl (35.1-43.9); Red Blood Count 3.86 M/mm3 (4.2-5.4); White Blood Count 8.7 K/mm3 (4.4-11.0)
[2025-06-28 09:05] LABS: AST(SGOT) 16 U/L (<=31); Alanine Aminotransfer ALT/SGPT 19 U/L (<=34); Albumin, Serum 4.0 g/dL (3.4-4.8); Alkaline Phosphatase 79 U/L (35-104); Anion Gap 11 (5-15); BUN 15 mg/dL (4-19); BUN/Creat Ratio 25.3 RATIO (10-20); Bilirubin, Direct 0.12 mg/dL (0.00-0.30); Calcium,Total 9.0 mg/dL (7.6-11.0); Carbon Dioxide 24.8 mmol/L (21.0-32.0); Chloride 102 mmol/L (98-108); Cholesterol 185 mg/dL (<=200); Globulin 2.9 g/dL (2.2-4.2); Glucose 99 mg/dL (70-99); Low Density Lipoprotein Calc. 117 mg/dL; Potassium 4.1 mmol/L (3.3-5.1); Triglycerides 75 mg/dL; Very Low Density Lipoprotein 15 mg/dL (5-40); cholesterol:hdl ratio screen 3.41
[2025-06-28 09:23] LABS: LDH 196 U/L (84-246); Uric Acid 4.2 mg/dL (2.6-6.0)
== END | disposition home or self-care (01) ==
LOC: EMPH 08:20
PROVIDERS: PCP Family Medicine; Visit Provider Family Medicine
DX: Z00.00 Encounter for general adult medical examination without abnormal findings (principal)

== ENCOUNTER → 2025-06-28 | Outpatient (CLI) | payer OTHER, SELFPAY ==
--- OUTSIDE RECORDS SUMMARY | 2025-06-28 08:05 | XMS RPT_ITS | CCD ---
Author Organization [facility] Care Team Providers Care Emergency Medical Service Manager Name Role Phone Marysol Juarez Unavailable Milli [...] Carina N Unavailable Marysol Juarez Unavailable SHAYY ELIZABETH Attending Unavailable [facility] Primary Care Unavailable CARA PATEL Referring Unavailable SHAYY ELIZABETH Attending CARA Hi Referring Unavailable Song, Carina N Unavailable Dr. Leidy Crawford Primary Care Provider Dr. Leidy Crawford Referring Provider [phone] Aviva ZUÑIGA, YOGESH Priest Attending Provider [phone] Dex VAZQUEZ, Dr. Chacko Primary Care Provider Gordon DPM, Dr. Jean Baptiste Attending Provider Gordon DPM, Dr. Jean Baptiste Referring Provider Dex VAZQUEZ, Dr. Chacko Attending Provider Dex VAZQUEZ, Dr. Chacko Referring Provider Marian VAZQUEZ, Dr. Humphrey Attending Provider Nola VAZQUEZ, Dr. Hughes Attending Provider Nola VAZQUEZ, Dr. Hughes Referring Provider James BROACH OPERATOR-C, Emmie Attending Provider Janes VAZQUEZ, Dr. Albarado Emergency Provider Dex VAZQUEZ, Dr. Chacko Primary Care Provider Dex VAZQUEZ, Dr. Chacko Attending Provider Gordon DPM, Dr. Jean Baptiste Attending Provider Janes VAZQUEZ, Dr. Albarado Attending Provider Christian SALAZAR, Dr. Torres Emergency Provider [phone] Miedel, Ginna Primary Care Unavailable Miedel, Ginna Attending Unavailable Miedel, Ginna Referring Unavailable Miedel, Ginna Primary Care Unavailable LeyvaAmadeoMarkel Attending Unavailable Miedel, Ginna Primary Care Unavailable Miedel, Ginna Attending Unavailable Miedel, Ginna Primary Care Unavailable Kancherla, Saul Referring Unavailable Nola, Saul Attending Unavailable Amadeo Leyvahan Attending Unavailable Leyva, Markel Referring Unavailable Miedel, Ginna Primary Care Unavailable Malys, Leidy Primary Care Unavailable Assessment, Health Risk Attending Unavaila ble Assessment, Health Risk Referring Unavaila ble James BROACH OPERATOR, Emmie Attending Unavailable Miedel, Ginna Primary Care Unavailable Panda Ricks Attending Unavailable Melissa Gonzales Referring Unavailable Miedel, Ginna Primary Care Unavailable Kam Fonseca Attending Unavailable Miedel, Ginna Primary Care Unavailable Gordon Markel Attending Unavailable Gordon, Markel Referring Unavailable Miedel, Ginna Primary Care Unavailable [facility] Ginna Primary Care Unavailable Ginna Kowalski Attending Unavailable NyserenaAngelah Referring Unavailable Per Marrero Attending Unavailable [facility] Primary Care Unavailable Melissa Gonzales Attending Unavailable [facility] Ginna Primary Care Unavailable Allergies Allergy Classification Reported Allergen(s) Allergy Type Date of Onset Reaction(s) Facility (20 sources) acetaminophen / oxyCODONE drug allergy 4 [facility] Work Phone: (20 sources) QUEtiapine drug allergy 6 throat and facial swelling [facility] Work Phone: (2 sources) Acetaminophen / HYDROcodone; Translations: [HYDROCODONE-ACET AMINOPHEN] Drug Allergy 2 [facility] Repository (2 sources) Acetaminophen / oxyCODONE; Translations: [OXYCODONE-ACETAM INOPHEN] Drug Allergy 8 [facility] Repository (12 sources) dilTIAZem Drug Allergy 0 Leg swelling [facility] (12 sources) gabapentin Drug Allergy 0 Edema [facility] (6 sources) oxyCODONE; Translations: [oxycodone HCl] Drug Allergy 0 Anaphylaxis [facility] (1 source) dilTIAZem Drug Allergy 5 [facility] Repository (1 source) gabapentin Drug Allergy 5 [facility] Repository Medications Current Medications Medication Drug Class(es) Dates Sig (Normalized) Sig (Original) acetaminophen 500 mg oral tablet (3 sources) Start: 02-21-2025 take 2 tablets by [...] System Stimulant, Methylxanthine Start: 02-07-2025 Butalbital-Acetami nop-Caf-Cod [id number] mg capsule Active 1 NMA PO Q4H as needed for pain February 07, 2025 12:00am Start: 01-13-2016 FIORICET/CODEI NE [id number] MG CAPS 1 tablet by mouth as needed for migraines [id number] Ana Laura SUTTONC Start: 01-13-2016 FIORICET/CODEI NE [id number] MG CAPS 1 tablet by mouth as needed for migraines [id number] [id number] Ana Laura SUTTONC ascorbic acid 1000 mg oral tablet (3 sources) Vitamin C Start: 02-21-2025 take 1 g by mouth once daily Ascorbic Acid (Vitamin C) (Vitamin C) 1,000 mg tablet Active 1 g PO DAILY 90 90 0 February 21, 2025 12:00am calcium carbonate 1250 mg / cholecalciferol 600 unt oral tablet (3 sources) Vitamin D Start: 02-21-2025 Calcium Carbonate-Vitamin D3 (Os-Mumtaz 500 + D3) 500 mg-15 mcg (600 unit) tablet Active 1 {tbl} PO DAILY 90 90 0 February 21, 2025 12:00am cyclobenzaprine hydrochloride 10 mg oral tablet (6 sources) Muscle Relaxant Start: 02-21-2025 End: 05-08-2025 take 1 tablet by mouth three times daily Cyclobenzaprine 10 mg tablet Active 10 mg PO THREE TIMES A DAY 21 7 0 April 07, 2025 12:00am muscle spasm gabapentin 100 mg oral capsule (20 sources) Anti-epileptic Agent Start: 05-08-2025 Gabapentin 100 mg capsule Active 100 mg PO DAILY 15 0 May 08, 2025 12:00am Take 1 pill daily for 3 days and then increase to twice a day for 3 days and ultimately can increase to 3 times a day as needed for pain. Start: 01-13-2016 take 1 tablet by pipo th once daily HORIZANT 600 MG CR-TABS 1 tablet by mouth daily GABAPENTIN ENACARBIL [id number] Ana Laura SUTTONC Start: 01-13-2016 take 1 tablet by pipo th once daily HORIZANT 600 MG CR-TABS 1 tablet by mouth daily GABAPENTIN ENACARBIL [id number] Ana Laura Salamanca PA-C ibuprofen 200 mg oral tablet (12 sources) Nonsteroidal Anti-inflammatory Drug Start: 03-22-2017 take 1 tablet by mouth every six hours as needed for pain Ibuprofen 200 MG tablet Active 200 mg PO EVERY 6 HOURS NEEDED as needed for Pain March 22, 2017 12:00am LORazepam 0.5 mg oral tablet (4 sources) Benzodiazepine Start: 02-07-2025 Lorazepam 0.5 mg tablet Active 0.5 mg PO NEEDED as needed for DENTAL February 07, 2025 12:00am ondansetron 4 mg disintegrating oral tablet (18 sources) Serotonin-3 Receptor Antagonist Start: 03-31-2025 take 1 tablet by mouth every six hours as needed for nausea and vomiting Ondansetron 4 mg tablet,disintegr ating Active 4 mg PO EVERY 6 HOURS as needed for nausea and vomiting 14 March 31, 2025 12:00am Start: 02-07-2025 take [address] [facility] every eight hours as needed for nausea [...] 9:18am oxyCODONE hydrochloride 5 mg oral tablet (11 sources) Opioid Agonist Start: 04-25-2025 take 1 tablet by mouth at bedtime as needed for pain Oxycodone 5 mg tablet Active 5 mg PO AT BEDTIME as needed for pain 5 5 0 May 08, 2025 Pain of left heel Other acute postprocedural pain Pain in left foot Other acute postprocedural pain Start: 04-18-2025 End: 05-08-2025 take 1 tablet by mouth every twelve hours Oxycodone 5 mg tablet Discontinued 5 mg PO Q12H 14 7 0 April 18, 2025 May 08, 2025 1:40pm Left foot pain Pain in left foot pain Start: 04-10-2025 take 1 tablet by pipo every eight hours Oxycodone 5 mg tablet Active 5 mg PO Q8H 21 7 0 April 10, 2025 Other acute postprocedural pain Other acute postprocedural pain pain Start: 02-21-2025 End: 05-08-2025 take 1 tablet by mouth every four hours Oxycodone 5 mg tablet Discontinued 5 mg PO Q4H 42 7 0 March 09, 2025 May 08, 2025 1:40pm Other acute postprocedural pain Other acute postprocedural pain pain pantoprazole 40 mg delayed release oral tablet (20 sources) Proton Pump Inhibitor Start: 03-15-2025 End: 05-08-2025 take 1 tablet by mouth twice daily as needed Pantoprazole (Protonix) 40 mg tablet,delayed release (DR/EC) Active 40 mg PO TWICE A DAY as needed for acid reflux May 08, 2025 12:00am Start: 01-13-2016 take 1 tablet by pipo th once daily PROTONIX 40 MG PACK 1 tablet by mouth daily PANTOPRAZOLE SODIUM [id number] Ana Laura Salamanca PA-C Start: 01-13-2016 take 1 tablet by pipo th once daily PROTONIX 40 MG PACK 1 tablet by mouth daily PANTOPRAZOLE SODIUM [id number] Ana Laura Salamanca PA-C Start: 05-01-2014 End: 01-13-2016 PROTONIX 20 MG TBEC twice da manprete PANTOPRAZOLE SODIUM [id number] Marysol Juarez promethazine hydrochloride 25 mg oral tablet (11 sources) Phenothiazine Start: 06-21-2023 take 1 tablet [...] injection as needed for migraines SUMATRIPTAN SUCCINATE [id number] Ana Laura Salamanca PA-C Start: 01-13-2016 IMITREX 6 MG/0 .5ML SOLN 1 injection as needed for migraines SUMATRIPTAN SUCCINATE [id number] Ana Laura Salamanca PA-C Completed/Discontinued Medications Medication Drug Class(es) Dates Sig (Normalized) Sig (Original) acetaminophen 325 mg / HYDROcodone bitartrate 5 mg oral tablet (10 sources) Opioid Agonist Start: 12-14-2023 End: 02-21-2025 [...] AERS 2 puffs twice daily ALBUTEROL SULFATE [id number] Ana Laura Salamanca PA-C Start: 01-13-2016 PROAIR HFA 108 (90 Base) MCG/ACT AERS 2 puffs twice daily ALBUTEROL SULFATE [id number] Ana Laura Salamanca PA-C Start: 05-01-2014 Albuterol [...] mg / clavulanate 125 mg oral tablet (9 sources) Penicillin-class Antibacterial Start: 12-16-2023 End: 02-07-2025 take 1 tablet by mouth every twelve hours Amoxicillin-Pot Clavulanate 875-125 mg tablet Discontinued 875 mg PO Q12H 20 December 16, 2023 12:00am February 07, 2025 9:15am aspirin 81 mg delayed release oral tablet (15 sources) Platelet Aggregation Inhibitor, Nonsteroidal Anti-inflammatory Drug Start: 02-21-2025 End: 05-08-2025 take 1 tablet by mouth once daily Aspirin 81 mg tablet,delayed release (DR/EC) Discontinued 81 mg PO DAILY February 21, 2025 12:00am May 08, 2025 1:38pm Start: 06-14-2018 End: 02-07-2025 take 1 tablet by mouth once daily Aspirin 81 MG tablet,chewable Discontinued 81 mg PO DAILY@0800 30 June 14, 2018 12:00am February 07, 2025 9:17am atorvastatin 20 mg oral tablet (12 sources) HMG-CoA Reductase Inhibitor Start: 06-15-2018 End: 02-07-2025 take 1 tablet by mouth once daily Atorvastatin 20 mg tablet Discontinued 20 mg PO DAILY 10 08June 15, 2018 12:00am February 07, 2025 9:17am BUDESONIDE-FORMOTERO L FUMARATE AERO (20 sources) Corticosteroid, beta2-Adrenergic Agonist Start: 05-01-2014 SYMBICORT AERO 1 puff twice daily BUDESONIDE-FORMOTER OL FUMARATE AERO [id number] Marysol Juarez Start: 05-01-2014 End: 01-13-2016 SYMBICORT AERO 1 puff twice daily BUDESONIDE-FORMOTEROL FUMARATE AERO [id number] Ana Laura Salamanca PA-C Start: 05-01-2014 SYMBICORT AERO 1 puff twice daily BUDESONIDE-FORMOTEROL FUMARATE AERO [id number] Marysol Juarez Start: 05-01-2014 End: 01-13-2016 SYMBICORT AERO 1 puff twice daily BUDESONIDE-FORMOTEROL FUMARATE AERO [id number] Ana Laura Salamanca PA-C celecoxib 200 mg oral capsule (20 sources) Nonsteroidal Anti-inflammatory Drug Start: 05-01-2014 End: 01-13-2016 take 1 capsule by mouth once daily CELEBREX 200 MG CAPS 1 capsule by mouth daily CELECOXIB [id number] Ana Laura Salamanca PA-C citalopram 10 mg oral tablet (20 sources) Serotonin Reuptake Inhibitor Start: 05-01-2014 End: 01-13-2016 CELEXA 10 MG TABS daily CITALOPRAM HYDROBROMIDE [id number] Ana Laura Salamanca PA-C clindamycin 150 mg oral capsule (10 sources) Lincosamide Antibacterial Start: 12-14-2023 End: 12-16-2023 take 2 capsules by mouth four times daily Clindamycin Hcl 150 mg capsule Discontinued 300 mg PO 4 TIMES DAILY 80 0 December 14, 2023 12:00am December 16, 2023 12:01pm Start: 12-14-2023 End: 12-16-2023 take 300 mg by mouth four times daily Clindamycin Hcl Discontinued 300 MG PO 4 TIMES DAILY 80 December 14, 2023 12:00am December 16, 2023 12:01pm clopidogrel 75 mg oral tablet (12 sources) [id number] Platelet Inhibitor Start: 06-14-2018 End: 06-15-2018 take 1 tablet by mouth once daily Clopidogrel 75 MG tablet Discontinued 75 mg PO DAILY 30 June 14, 2018 12:00am June 15, 2018 4:58pm digoxin 0.25 mg oral tablet (12 sources) Cardiac Glycoside Start: 07-19-2018 End: 02-07-2025 take 0.25 mg by mouth once daily Digoxin 250 mcg tablet Discontinued 0.25 mg PO DAILY 10 08July 19, 2018 1:00am February 07, 2025 9:17am Start: 07-19-2018 take 0.25 mg by mouth once nanda ly Digoxin Active 0.25 MG PO DAILY July 19, 2018 1:00am 24 hr dilTIAZem hydrochloride 120 mg extended release oral capsule (12 sources) Calcium Channel Camron Start: 07-05-2018 End: 07-19-2018 take 1 capsule by mouth once daily Diltiazem Hcl 120 MG capsule Discontinued 120 mg PO DAILY July 05, 2018 12:00am July 19, 2018 1:57pm docusate sodium 100 mg oral capsule (3 sources) Start: 02-21-2025 End: 05-08-2025 take 1 capsule by mouth once daily Docusate Sodium (Colace) 100 mg capsule Discontinued 100 mg PO DAILY 10 10 0 February 21, 2025 12:00am May 08, 2025 1:39pm ergocalciferol 1.25 mg oral capsule (4 sources) Provitamin D2 Compound Start: 02-07-2025 End: 05-08-2025 Ergocalciferol (Vitamin D2) 1,250 mcg (50,000 unit) capsule Discontinued 1250 ug PO EVERY WEEK February 07, 2025 12:00am May 08, 2025 1:39pm hydroCHLOROthiazide 25 mg oral tablet (20 sources) [...] TABS 1 tablet by mouth MAGNESIUM OXIDE [id number] Ana Laura Salamanca PA-C meloxicam 15 mg oral tablet (12 sources) Nonsteroidal Anti-inflammatory Drug Start: 06-14-2018 End: [...] 1 tablet by mouth daily MULTIPLE VITAMINS-MINERALS [id number] Ana Laura Salamanca PA-C MULTIPLE VITAMINS-MINERALS (15 sources) Start: 01-13-2016 take 1 tablet by mouth once daily ONE DAILY MULTIVITAMIN WOMEN TABS 1 tablet by mouth daily MULTIPLE VITAMINS-MINERALS [id number] Ana Laura Salamanca PA-C Start: 01-13-2016 take 1 tablet by pipo once daily ONE DAILY MULTIVITAMIN WOMEN TABS 1 tablet by mouth daily MULTIPLE VITAMINS-MINERALS [id number] Ana Laura Salamanca PA-C potassium chloride 10 meq extended release oral tablet (20 sources) Start: 07-19-2018 End: 02-07-2025 take 1 tablet by mouth once daily Potassium Chloride 10 mEq tablet extended release Discontinued 10 meq PO DAILY 10 08July 19, 2018 1:00am February 07, 2025 9:17am Start: 01-13-2016 POTASSIUM CHLO RIDE ER 10 MEQ CR-TABS 1 tablet by mouth as need for muscle cramps POTASSIUM CHLORIDE [id number] Ana Laura Salamanca PA-C predniSONE 20 mg oral tablet (20 sources) Corticosteroid Start: 01-13-2016 PREDNISONE 20 MG TABS 1 tablet by mouth as needed for arthritis pain PREDNISONE [id number] Ana Laura Salamanca PA-C 24 hr propranolol hydrochloride 80 mg extended release oral capsule (12 sources) beta-Adrenergic Camron Start: 06-15-2018 End: 02-07-2025 take 1 capsule by mouth once daily Propranolol (Inderal La) 80 mg capsule,extended release 24 hr Discontinued 80 mg PO DAILY 10 08June 15, 2018 12:00am February 07, 2025 9:16am rOPINIRole 1 mg oral tablet (20 sources) Nonergot Dopamine Agonist Start: 05-01-2014 End: 01-13-2016 REQUIP 1 MG TABS every night ROPINIROLE HCL [id number] Marysol Juarez 24 hr rotigotine 0.125 mg/hr transdermal system (20 sources) Start: 01-13-2016 NEUPRO 3 MG/24HR PT24 1 patch every 24 hours ROTIGOTINE [id number] Ana Laura Salamanca PA-C Start: 01-13-2016 NEUPRO 3 MG/24 HR PT24 1 patch every 24 hours ROTIGOTINE [id number] Ana Laura Salamanca PA-C B COMPLEX VITAMINS (20 sources) Start: 01-13-2016 take 1 tablet by mouth once daily VITAMIN B COMPLEX TABS 1 tablet by mouth daily B COMPLEX VITAMINS [id number] Ana Laura Salamanca PA-C Start: 01-13-2016 take 1 tablet by pipo th once daily VITAMIN B COMPLEX TABS 1 tablet by mouth daily B COMPLEX VITAMINS [id number] Ana Laura Salamanca PA-C Problems Active Problems Problem Classification Problem Date Documented Da te Episodic/Chronic Acquired foot deformities (6 sources) Talipes cavus; Translations: [Congenital pes cavus, left foot] 02-21-2025 Episodic Disorders of lipid metabolism (12 sources) Hyperlipidemia; Translations: [Hyperlipidemia, unspecified] 06-15-2018 Chronic Disorders of teeth and jaw (20 sources) Dental abscess; Translations: [Periapical abscess without sinus] 12-14-2023 Episodic Gastritis and duodenitis (2 sources) Gastritis; Translations: [Gastritis, unspecified, without bleeding] 03-31-2025 Episodic Gastrointestinal hemorrhage (2 sources) Gastrointestinal hemorrhage; Translations: [Gastrointestinal hemorrhage, unspecified] 03-31-2025 Episodic Headache; including migraine (20 sources) Migraine; Translations: [Migraine, unspecified, not intractable, without status migrainosus] 06-15-2018 Chronic Immunizations and screening for infectious disease (12 sources) Patient encounter status; Translations: [Encounter for screening for COVID-19] 04-21-2022 Episodic Intestinal infection (11 sources) Viral gastroenteritis; Translations: [Viral intestinal infection, unspecified] 06-21-2023 Episodic Joint disorders and dislocations; trauma-related (20 sources) Derangement of knee; Translations: [Unspecified internal derangement of left knee] Onset: 7 01-17-2017 Chronic Nausea and vomiting (3 sources) Nausea; Translations: [Nausea] Onset: 5 03-31-2025 Episodic Nonspecific chest pain (12 sources) Chest pain; Translations: [Chest pain, unspecified] 06-15-2018 Episodic Open wounds of extremities (7 sources) Needle stick injury of finger 02-29-2020 Episodic Osteoarthritis (15 sources) Osteoarthritis of knee; Translations: [Osteoarthritis of joint of left ankle and/or foot] Onset: 7 06-13-2017 Chronic Other congenital anomalies (6 sources) Congenital deformity of foot; Translations: [Other specified congenital deformities of feet] 02-21-2025 Chronic Other connective tissue disease (6 sources) Foot pain; Translations: [Pain in left foot] 02-21-2025 Episodic Other connective tissue disease (1 source) Heel pain; Translations: [Pain in left foot] 05-08-2025 Episodic Other connective tissue disease (1 source) Pain in left foot; Translations: [Pain in left foot] Onset: 5 Episodic Other nervous system disorders (3 sources) Acute postoperative pain; Translations: [Other acute postprocedural pain] 02-21-2025 Episodic Other non-traumatic joint disorders (14 sources) Arthropathy; Translations: [Other specified acquired deformities of musculoskeletal system] Onset: 7 04-14-2017 Chronic Residual codes; unclassified (12 sources) H/O: Disorder; Translations: [Personal history of other specified conditions] 02-29-2020 Episodic Residual codes; unclassified (12 sources) Family history of ischemic heart disease; Translations: [Family history of ischemic heart disease and other diseases of the circulatory system] 06-15-2018 Episodic Rheumatoid arthritis and related disease (20 sources) Rheumatoid arthritis - hand joint; Translations: [Rheumatoid arthritis] Onset: 6 01-13-2016 Chronic Screening and history of mental health and substance abuse codes (12 sources) History of eating disorder; Translations: [Personal history of other mental and behavioral disorders] 02-29-2020 Episodic Spondylosis; intervertebral disc disorders; other back problems (1 source) Intervertebral disc disorders with radiculopathy, lumbar region; Translations: [Intervertebral disc disorder with radiculopathy of lumbar region] Onset: 9 Episodic Substance-related disorders (12 sources) Tobacco dependence syndrome; Translations: [Nicotine dependence, [...] Onset: 01-13-2016 01-14-2016 Episodic Residual codes; unclassified (12 sources) History of cardiac catheterization; Translations: [Other [...] alcohol abuse and dependence] 01-13-2016 Episodic Unclassified (12 sources) history of coccyx removal 04-01-2022 Unclassified (12 sources) history of wrist surgery 04-01-2022 Unclassified (12 sources) 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 Markel Leyva DPM Status: R EG RCR Insurance: [employer] SEL[employer] PAY INSURANCE Patient's Visit Information Visit Information Visit Information: DARWIN PORTILLO is a 60 year old F referred to Physical Therapy by Dr. Markel Leyva DPM with a diagnosis of S/P 02-21-25..... current Dx peroneal brevis weakness/cavas foot.. Date of Evaluation: 05/14/25 Physical Therapist: JESUS Roche Visit Plan Frequency: 3x /Week Duration: 2 Months Plan: Pt is currently WB in walking boot. Patient is clarifying about WB status out of the boot in therapy with Dr at her appt [facility]. 3X/ week for 8 weeks for L ankle desensitizing, PROM, AAROM, AROM, stretching, strengthening, gait training with HEP. HEP: desensitizing with cotton ball, wash cloth, putting on sock etc, seated heel and toe raises, gastroc towel stretch, toe towel curls Subjective Subjective: Goes by [place]. She had reconstructive surgery February 21. She was NWB until Apr 25 and started with PWB with crutches. She had some problems with swelling and some redness. was concerned she was on crutches. She has screws that go up through heel bone and plate and screws on the top. She went home and got rid of the crutches in the walking boot. She can set her foot down but she can not stand on it without the walking boot. If she tries to stand on it she has 9/10 pain. Pain goes up through her heel and up through her heel. She has swelling on the L lateral side of her foot. is ok with her being full weight bearing in the boot. She has tried some exercises she got off the internet. Steps: has not tried them. Driving: back to driving Pain L foot pain: Pain Intensity (Out of 10): 5 Objective Objective: Gait: walks with a walking boot with decrease stance time on the L LE with almost no weight shift. Palpation: Hypersensitive to light touch... discussed starting with cotton ball and desensitizing her foot. Girth Measurements: L Med to lat mal 28, figure 8 54 L ankle AROM DF 6, PF 30, INV 20 and EV -5 R ankle AROM DF 6, PF 70, INV 20, EV 10 Pt struggles to elicit L foot eversion and DF. L gastroc and soleus very tight. L foot is also a little more discolored compared to the R foot. Balance/Special Test Scores Lower Extremity Functional Score: 26 Goals Goal 1:: I HEP Goal Time Frame: 8-12 Weeks Goal 2:: Increase L ankle AROM (at the time of the eval: L ankle AROM DF 6, PF 30, INV 20 and EV -5 R ankle AROM DF 6, PF 70, INV 20, EV 10). Goal Time Frame: 8-12 Weeks Goal 3:: Be able to wear a sock without having sensitivity discomfort Goal Time Frame: 8-12 Weeks Goal 4:: Be able to walk without the boot with equal stance time on B LE's Goal Time Frame: 8-12 Weeks Goal 5:: Increase L gastroc and soleus AROM Goal Time Frame: 6-8 Weeks Rehabilitation Potential Rehabilitation Potential: Good Anticipated Interventions Patient/Client Instruction: Educate patient on: Condition and Plan of Care For the Purpose of:: To decrease pain, To decrease swelling/inflammation, To increase ROM, To improve nutrient delivery to tissue, To increase oxygenation perfusion, To improve muscle performance and motor function, To improve ability to perform ADL's, To increase tolerance to activity/condition/positio n, To improve performance and independence with ADL's, To decrease level of supervision to perform tasks, To improve ability of physical actions for home/community/work/leisur e, To improve gait and locomotor functions, To improve health of tissue, To decrease soft tissue restriction, To increase flexibility/ROM, To improve endurance and To improve balance Therapeutic Exercise to Include: Strength training, Endurance training, Balance training, Postural training, Flexibilty training, Gait and locomotor training, Neuromotor development, Passive ROM and Active ROM For the Purpose of:: To decrease pain, To decrease swelling/inflammation, To increase ROM, To improve nutrient delivery to tissue, To improve muscle performance and motor function, To improve ability to perform ADL's, To increase tolerance to activity/condition/positio n, To improve performance and independence with ADL's, To decrease level of supervision to perform tasks, To improve ability of physical actions for home/community/work/leisur e, To improve gait and locomotor functions, To improve health of tissue, To decrease soft tissue restriction, To increase flexibility/ROM, To improve endurance, To improve balance and To improve safety with gait Functional Training to Include: Gait training For the Purpose of:: To improve (more content not included)... Normal [facility] Vitamin D,25 Hydroxyon 05-09 Vitamin D 25-OH 27.9 ng/mL Low 30-100 [facility] Comment on above: Result Comment: Mel min D Status Deficiency: <20 ng/mL (50nmol/L) Insufficiency: 20-30 ng/mL (50-75 nmol/L) Sufficiency: 30-100 ng/mL (75-250 nmol/L) Toxicity: >100 ng/mL (>250 nmol/L) Performed By: #### L 506.1001, L500.4050, L101.9900, L100.0100, L501.6710 ####[facility] [address] [place], [address] Absolute lymphocyte countOrd ered By: Melissa Gonzales on 05-08-2025 Lymphocytes Auto (Unsp spec) [#/Vol] 2.65 10*3/uL 0.83-4.51 [facility] Absolute neutrophil countOrd ered By: Melissa Gonzales on 05-08-2025 Neutrophils (Bld) [#/Vol] 5.6 10*3/uL 2.0-7.7 [facility] Anion gap in Serum or Plasma Ordered By: Melissa Gonzales on 05-08-2025 Anion gap [Moles/Vol] 14 mmol/L 5-15 [facility] Automated lymphocyte count a s percentage of total leukocytesOrdered By: Melissa Gonzales on 05-08-2025 Lymphocytes/100 WBC Auto (Unsp spec) 29.9 % 19-41 [facility] BUN/creatinine ratioOrdered By: Melissa Gonzales on 05-08-2025 Urea nitrogen/Creatinine [Mass ratio] 10.5 mg/mg 10-20 [facility] Basophil percentageOrdered B y: Melissa Gonzales on 05-08-2025 Basophils/100 WBC (Bld) 0.8 % 0-1 [facility] Bilirubin, totalOrdered By: Melissa Gonzales on 05-08-2025 Bilirubin [Mass/Vol] 0.22 mg/dL 0.00-1.30 [facility] CBC W/Diff, Automatedon 04-12 Absolute Lymph 2.65 X10 3/uL Normal 0.83-4.51 [facility] Comment on above: Performed By: #### L 506.1001, L500.4050, L101.9900, L100.0100, L501.6710 ####[facility] [address] [place], [address] Absolute Neut 5.6 X10 3/uL Normal 2.0-7.7 [facility] Comment on above: Performed By: #### L 506.1001, L500.4050, L101.9900, L100.0100, L501.6710 ####[facility] [address] [place], [address] Basophils/100 WBC (Bld) 0.8 % Normal 0-1 [facility] Comment on above: Performed By: #### L 506.1001, L500.4050, L101.9900, L100.0100, L501.6710 ####[facility] [address] [place], [address] Eosinophils/100 WBC (Bld) 0.8 % Normal 0-5 [facility] Comment on above: Performed By: #### L 506.1001, L500.4050, L101.9900, L100.0100, L501.6710 ####[facility] [address] [place], [address] Erythrocyte distribution width (RBC) [Ratio] 13.0 % Normal 11.6-14.6 [facility] Comment on above: Performed By: #### L 506.1001, L500.4050, L101.9900, L100.0100, L501.6710 ####[facility] [address] [place], [address] Hematocrit (Bld) [Volume fraction] 42.7 % Normal 37-47 [facility] Comment on above: Performed By: #### L 506.1001, L500.4050, L101.9900, L100.0100, L501.6710 ####[facility] [address] [place], [address] Hemoglobin (Bld) [Mass/Vol] 14.4 g/dL Normal 12.0-15.0 [facility] Comment on above: Performed By: #### L 506.1001, L500.4050, L101.9900, L100.0100, L501.6710 ####[facility] [address] [place], [address] IG% 0.300 Normal 0.0-0.9 [facility] Comment on above: Result Comment: IG% - Immature Granulocytes (promyelocytes, myelocytes and metamyelocytes) > 1% indicates that a LEFT SHIFT is Present. Performed By: #### L 506.1001, L500.4050, L101.9900, L100.0100, L501.6710 ####[facility] [address] [place], [address] Lymphocytes/100 WBC (Bld) 29.9 % Normal 19-41 [facility] Comment on above: Performed By: #### L 506.1001, L500.4050, L101.9900, L100.0100, L501.6710 ####[facility] [address] [place], [address] MCH (RBC) [Entitic mass] 32.1 pg High 27.0-32.0 [facility] Comment on above: Performed By: #### L 506.1001, L500.4050, L101.9900, L100.0100, L501.6710 ####[facility] [address] [place], [address] MCHC (RBC) [Mass/Vol] 33.7 g/dL Normal 32-36 [facility] Comment on above: Performed By: #### L 506.1001, L500.4050, L101.9900, L100.0100, L501.6710 ####[facility] [address] [place], [address] MCV (RBC) [Entitic vol] 95.1 fL Normal 81-99 [facility] Comment on above: Performed By: #### L 506.1001, L500.4050, L101.9900, L100.0100, L501.6710 ####[facility] [address] [place], [address] Monocytes/100 WBC (Bld) 5.4 % Normal 0-10 [facility] Comment on above: Performed By: #### L 506.1001, L500.4050, L101.9900, L100.0100, L501.6710 ####[facility] [address] [place], [address] Neutrophils/100 WBC (Bld) 62.8 % Normal 47-70 [facility] Comment on above: Performed By: #### L 506.1001, L500.4050, L101.9900, L100.0100, L501.6710 ####[facility] [address] [place], [address] Nucleated RBC (Bld) [#/Vol] 0 10*3/uL Normal 0-5 [facility] Comment on above: Performed By: #### L 506.1001, L500.4050, L101.9900, L100.0100, L501.6710 ####[facility] [address] [place], [address] Platelet mean volume (Bld) [Entitic vol] 9.0 fL Normal 6.2-12.0 [facility] Comment on above: Performed By: #### L 506.1001, L500.4050, L101.9900, L100.0100, L501.6710 ####[facility] [address] [place], [address] Platelets (Bld) [#/Vol] 401 10*3/uL Normal 150-450 [facility] Comment on above: Performed By: #### L 506.1001, L500.4050, L101.9900, L100.0100, L501.6710 ####[facility] [address] [place], [address] RBC (Bld) [#/Vol] 4.49 10*6/uL Normal 4.2-5.4 [facility] Comment on above: Performed By: #### L 506.1001, L500.4050, L101.9900, L100.0100, L501.6710 ####[facility] [address] [place], [address] RDW SD 45.6 fl High 35.1-43.9 [facility] Comment on above: Performed By: #### L 506.1001, L500.4050, L101.9900, L100.0100, L501.6710 ####[facility] [address] [place], [address] WBC (Bld) [#/Vol] 8.9 10*3/uL Normal 4.4-11.0 [facility] Comment on above: Performed By: #### L 506.1001, L500.4050, L101.9900, L100.0100, L501.6710 ####[facility] [address] [place], [address] CRPon 05-08-2025 C-REACTIVE PROT < 3.00 Normal 0.0-3.0 [facility] Comment on above: Performed By: #### L 506.1001, L500.4050, L101.9900, L100.0100, L501.6710 ####[facility] [address] [place], [address] Carbon dioxide, total [Moles /volume] in Central venous bloodOrdered By: Melissa Gonzales on 05-08-2025 CO2 [Moles/Vol] 22.7 mmol/L 21.0-32.0 [facility] Chloride assayOrdered By: Ervin Gonzales on 05-08-2025 Chloride [Moles/Vol] 104 mmol/L 98-108 [facility] Comprehensive Metabolic Prof ilon 05-08-2025 Albumin [Mass/Vol] 4.3 g/dL Normal 3.4-4.8 [facility] Comment on above: Performed By: #### L 506.1001, L500.4050, L101.9900, L100.0100, L501.6710 ####[facility] [address] [place], [address] Albumin/Globulin [Mass ratio] 1.3 {ratio} Normal 0.9-2.4 [facility] Comment on above: Performed By: #### L 506.1001, L500.4050, L101.9900, L100.0100, L501.6710 ####[facility] [address] [place], [address] ALK PHOS 103 U/L Normal 35-104 [facility] Comment on above: Performed By: #### L 506.1001, L500.4050, L101.9900, L100.0100, L501.6710 ####[facility] [address] [place], [address] ALT [Catalytic activity/Vol] 20 U/L Normal <=34 [facility] Comment on above: Performed By: #### L 506.1001, L500.4050, L101.9900, L100.0100, L501.6710 ####[facility] [address] [place], [address] AST [Catalytic activity/Vol] 19 U/L Normal <=31 [facility] Comment on above: Performed By: #### L 506.1001, L500.4050, L101.9900, L100.0100, L501.6710 ####[facility] [address] [place], [address] Bilirubin [Mass/Vol] 0.22 mg/dL Normal 0.00-1.30 [facility] Comment on above: Performed By: #### L 506.1001, L500.4050, L101.9900, L100.0100, L501.6710 ####[facility] [address] [place], [address] BUN/CRE 10.5 RATIO Normal 10-20 [facility] Comment on above: Performed By: #### L 506.1001, L500.4050, L101.9900, L100.0100, L501.6710 ####[facility] [address] [place], [address] Calcium [Mass/Vol] 9.5 mg/dL Normal 7.6-11.0 [facility] Comment on above: Performed By: #### L 506.1001, L500.4050, L101.9900, L100.0100, L501.6710 ####[facility] [address] [place], [address] Chloride [Moles/Vol] 104 mmol/L Normal 98-108 [facility] Comment on above: Performed By: #### L 506.1001, L500.4050, L101.9900, L100.0100, L501.6710 ####[facility] [address] [place], [address] CO2 [Moles/Vol] 22.7 mmol/L Normal 21.0-32.0 [facility] Comment on above: Performed By: #### L 506.1001, L500.4050, L101.9900, L100.0100, L501.6710 ####[facility] [address] [place], [address] Creatinine [Mass/Vol] 0.69 mg/dL Low 0.70-1.20 [facility] Comment on above: Performed By: #### L 506.1001, L500.4050, L101.9900, L100.0100, L501.6710 ####[facility] [address] [place], [address] GAP 14 Normal 5-15 [facility] Comment on above: Performed By: #### L 506.1001, L500.4050, L101.9900, L100.0100, L501.6710 ####[facility] [address] [place], [address] GFR/1.73 sq M.predicted among non-blacks MDRD (S/P/Bld) [Vol rate/Area] 99 mL/min/{1.73_m2} Normal >60 [facility] Comment on above: Result Comment: mL/m in/1.73m2 CKD-EPI Creatinine Equation (2020) Performed By: #### L 506.1001, L500.4050, L101.9900, L100.0100, L501.6710 ####[facility] [address] [place], [address] Globulin (S) [Mass/Vol] 3.3 g/dL Normal 2.2-4.2 [facility] Comment on above: Performed By: #### L 506.1001, L500.4050, L101.9900, L100.0100, L501.6710 ####[facility] [address] [place], [address] Glucose [Mass/Vol] 96 mg/dL Normal 70-99 [facility] Comment on above: Performed By: #### L 506.1001, L500.4050, L101.9900, L100.0100, L501.6710 ####[facility] [address] [place], [address] Potassium [Moles/Vol] 3.9 mmol/L Normal 3.3-5.1 [facility] Comment on above: Performed By: #### L 506.1001, L500.4050, L101.9900, L100.0100, L501.6710 ####[facility] [address] [place], [address] Sodium [Moles/Vol] 140 mmol/L Normal 133-145 [facility] Comment on above: Performed By: #### L 506.1001, L500.4050, L101.9900, L100.0100, L501.6710 ####[facility] [address] [place], [address] T PROT 7.7 g/dL Normal 5.9-8.4 [facility] Comment on above: Performed By: #### L 506.1001, L500.4050, L101.9900, L100.0100, L501.6710 ####[facility] [address] [place], [address] Urea nitrogen [Mass/Vol] 7 mg/dL Normal 4-19 [facility] Comment on above: Performed By: #### L 506.1001, L500.4050, L101.9900, L100.0100, L501.6710 ####[facility] [address] [place], [address] Emergency Department Summary on 05-08-2025 Emergency Department Summary [facility] Medical Records Department [address] [place] [address] Emergency Department Summary 05/08/25 MR#: [id number] Acct: [id number] Name: DARWIN PORTILLO Rep #: [id number] : 1965 60 From: Melissa Gonzales DO PCP: Dr. Ginna Kowalski MD Status:DEP ER Location: ED HPI History of Present Illness Chief Complaint: Lower Extremity Injury Informant: patient Narrative Narrative: Patient 60 old female with history of tobacco use, rheumatoid arthritis and recent left foot surgery performed by Dr. Leyva on 02/21/2025 presenting with worsening heel pain. Patient states that overall she has been healing well. She states that she had been getting around well with a walking boot and crutch walking which is taking Tylenol and Motrin for the past week and a half. 2 days ago she followed up with podiatry and was told that she should stop crutch walking. She notes since that she has been having increased pain in her left heel that radiates up into her calf. She states it is a sharp stabbing sensation. States she has not had severe pain like this since immediately postop. She has been alternating ibuprofen and Tylenol (800 mg of ibuprofen with 1000 g of Tylenol) every 6 hours and continues to have severe pain. She knows she has not had any opioid medication for the past week and a half because her pain has been well-controlled/tolerable. She has not she had a small bubble that drained 2 and half weeks ago has been healing up well since. This was on the lateral aspect of her midfoot. Pain is better with rest and worse with ambulation especially whenever she heel strikes. States that overall her swelling in her leg postoperatively has improved however she has noticed a bit more swelling in her left ankle and distal calf over the past 2 to [address] [facility] Medical History Wears glasses Post-menopausal Rheumatoid arthritis [...] 1 - 2 puff Inhalation Q4H PRN UT N 05/01/14 02/20/25 History aerosol inhaler Asthma [...] History mg-caffeine 40 mg-codeine 30 mg cap lorazepam 0.5 mg tablet 0.5 mg PO PRN PRN DENTAL 02/07/25 Unknown History ondansetron 4 mg disintegrating 8 mg PO Q8H PRN PRN Nausea 5 02/20/25 History tablet acetaminophen 500 mg tablet 1,000 mg (2 x 500 mg) PO Q6H 10 Unknown Rx (Tylenol Extra Strength) days #80 tabs ascorbic acid (vitamin C) 1,000 mg 1 g PO DAILY 90 days #90 tabs Unknown Rx tablet (Vitamin C) calcium 500 mg (as 1 tab PO DAILY 90 days #90 tabs Unknown Rx carbonate)-vitamin D3 15 mcg (600 unit) tablet (Os-Mumtaz 500 + D3) cyclobenzaprine 10 mg tablet 10 mg PO TID muscle spasm 7 days 0 03/13/25 Unknown Rx #21 tabs ondansetron 4 mg disintegrating 4 mg PO Q6H PRN nausea and 5 Unknown Rx tablet vomiting #14 tabs cyclobenzaprine 10 mg tablet 10 mg PO TID muscle spasm 7 days 0 04/07/25 Unknown Rx #21 tabs oxycodone 5 mg tablet 5 mg PO Q8H pain 7 days #21 tabs 0 04/10/25 Unknown Rx oxycodone 5 mg tablet 5 mg PO DAILY pain 7 days #7 tabs 04/25/25 Unknown Rx gabapentin 100 mg capsule 100 mg PO DAILY #15 caps 05/08/25 Unknown Rx oxycodone 5 mg tablet 5 mg PO QHS PRN pain 5 days #5 tab s 05/08/25 Unknown Rx pantoprazole 40 mg tablet,delayed 40 mg PO BID PRN acid reflux 04/12 05/05 Unknown History release (Protonix) Allergy/AdvReac Type Severity Reaction Status Date / Time diltiazem AdvReac Intermediate Leg Verified 05/08/25 13:26 swelling gabapentin (From [facility]) AdvReac Intermediate Edema Verified 05/08/25 13:26 Family History Mother Breast cancer Grandmother Breast cancer Other Heart disease Hypertension Isela Gehrigs disease Myocardial infarction Surgical History History of dental surgery History of left heart catheterization ( 06/15 (more content not included)... Normal [facility] Eosinophil percentageOrdered By: Melissa Gonzales on 05-08-2025 Eosinophils/100 WBC (Bld) 0.8 % 0-5 [facility] Erythrocyte Sed Rateon 05-08 SED RATE 21 mm/hr Normal 0-30 [facility] Comment on above: Performed By: #### L 506.1001, L500.4050, L101.9900, L100.0100, L501.6710 ####[facility] [address] [place], [address] Erythrocyte distribution wid th ratioOrdered By: Melissa Gonzales on 05-08-2025 Erythrocyte distribution width (RBC) [Ratio] 13.0 % 11.6-14.6 [facility] Erythrocyte distribution wid th standard deviationOrdered By: Melissa Gonzales on 05-08-2025 Erythrocyte distribution width (RBC) [Ratio] 45.6 fl High 35.1-43.9 [facility] Erythrocyte sedimentation ra teOrdered By: Melissa Gonzales on 05-08-2025 ESR (Bld) [Velocity] 21 mm/h 0-30 [facility] Foot min 3 Viewson Foot min 3 Views [facility] Imaging Services [address] [address] Foot min 3 Views MR#: [id number] Acct: [id number] Name: DARWIN PORTILLO Rep #: [id number] : 1965 F 60 From: Robin vargas MD PCP: Dr. Ginna Kowalski MD Status: REG ER Study: Foot min 3 Views Date of Exam: 05/08/25 Exam# [id number] Ordering Dr: Melissa Gonzales DO PROCEDURE: FOOT MIN 3 VIEWS 05/08/2025 REASON FOR EXAM: INJURY/PAIN TECHNIQUE: FOOT MIN 3 VIEWS Laterality: Left foot COMPARISON: Prior study dated FINDINGS: The patient is status post fusion at the 1st tarsometatarsal joint. Status post screw fixation of the calcaneus. Degenerative changes of the 1st metatarsophalangeal joint. Generalized osteopenia. Soft tissue swelling. RAD/Foot min 3 Views IMPRESSION: Generalized osteopenia. Status post screw fixation of the calcaneus as well as fusion at the 1st tarsometatarsal joint. Reading Location: [id number] CC: Dr. Melissa Gonzales DO; Dr. Ginna Kowalski MD Staff Assistant: Signed Normal [facility] Glomerular filtration rate ( GFR) estimation/1.73 sq m using serum, plasma, or whole bOrdered By: Melissa Gonzales on 05-08-2025 GFR/1.73 sq M.predicted among non-blacks MDRD (S/P/Bld) [Vol rate/Area] 99 mL/min/{1.73_m2} >60 [facility] Comment on above: mL/min/1.73m2 CKD-EP I Creatinine Equation (2020) Hematocrit Auto (Bld) [Volum e fraction]Ordered By: Melissa Gonzales on 05-08-2025 Hematocrit (Bld) [Volume fraction] 42.7 % 37-47 [facility] Hemoglobin measurementOrdere d By: Melissa Gonzales on 05-08-2025 Hemoglobin (Bld) [Mass/Vol] 14.4 g/dL 12.0-15.0 [facility] Immature granulocytes/100 WB C Auto (Bld)Ordered By: Melissa Gonzales on 05-08-2025 Immature granulocytes/100 WBC (Bld) 0.300 % 0.0-0.9 [facility] Comment on above: IG% - Immature Granu locytes (promyelocytes, myelocytes and metamyelocytes) > 1% indicates that a LEFT SHIFT is Present. Laboratory - Chemistry and C hemistry - challengeOrdered By: Melissa Gonzales on 05-08-2025 AST [Catalytic activity/Vol] 19 U/L <32 [facility] MCV (mean corpuscular volume ) determinationOrdered By: Melissa Gonzales on 05-08-2025 MCV (RBC) [Entitic vol] 95.1 fL 81-99 [facility] Mean corpuscular hemoglobin (MCH) determinationOrdered By: Melissa Gonzales on 05-08-2025 MCH (RBC) [Entitic mass] 32.1 pg High 27.0-32.0 [facility] Mean corpuscular hemoglobin concentration (MCHC) determinationOrdered By: Melissa Gonzales on 05-08-2025 MCHC (RBC) [Mass/Vol] 33.7 g/dL 32-36 [facility] Mean platelet volume determi nationOrdered By: Melissa Gonzales on 05-08-2025 Platelet mean volume (Bld) [Entitic vol] 9.0 fL 6.2-12.0 [facility] Monocyte percentageOrdered B y: Melissa Gonzales on 05-08-2025 Monocytes/100 WBC (Bld) 5.4 % 0-10 [facility] Neutrophil percentageOrdered By: Melissa Gonzales on 05-08-2025 Neutrophils/100 WBC (Bld) 62.8 % 47-70 [facility] Nucleated red blood cell per centageOrdered By: Melissa Gonzales on 05-08-2025 Nucleated RBC/100 WBC (Bld) [Ratio] 0 % 0-5 [facility] Platelet countOrdered By: Ervin Gonzales on 05-08-2025 Platelets (Bld) [#/Vol] 401 10*3/uL 150-450 [facility] Potassium measurement (mass/ volume)Ordered By: Melissa Gonzales on 05-08-2025 Potassium (Unsp spec) [Mass/Vol] 3.9 mmol/L 3.3-5.1 [facility] RBC Auto (Bld) [#/Vol]Ordere d By: Melissa Gonzales on 05-08-2025 RBC (Bld) [#/Vol] 4.49 10*6/uL 4.2-5.4 [facility] Serum creatinine measurement (mass/volume)Ordered By: Melissa Gonzales on 05-08-2025 Creatinine [Mass/Vol] 0.69 mg/dL Low 0.70-1.20 [facility] Serum globulin measurementOr dered By: Melissa Gonzales on 05-08-2025 Globulin (S) [Mass/Vol] 3.3 g/dL 2.2-4.2 [facility] Serum glucose measurement (m ass/volume)Ordered By: Melissa Gonzales on 05-08-2025 Glucose [Mass/Vol] 96 mg/dL 70-99 [facility] Serum or plasma C reactive p rotein measurement (mass/volume)Ordered By: Melissa Gonzales on 05-08-2025 CRP [Mass/Vol] mg/L 0.0-3.0 [facility] Serum or plasma alanine bro otransferase (ALT) measurementOrdered By: Melissa Gonzales on 05-08-2025 ALT [Catalytic activity/Vol] 20 U/L <35 [facility] Serum or plasma albumin laura urement (mass/volume)Ordered By: Melissa Gonzales on 05-08-2025 Albumin [Mass/Vol] 4.3 g/dL 3.4-4.8 [facility] Serum or plasma albumin/glob ulin mass ratioOrdered By: Melissa Gonzales on 05-08-2025 Albumin/Globulin [Mass ratio] 1.3 {ratio} 0.9-2.4 [facility] Serum or plasma alkaline sabino sphatase measurementOrdered By: Melissa Gonzales on 05-08-2025 ALP [Catalytic activity/Vol] 103 U/L 35-104 [facility] Serum or plasma calcium laura urement (mass/volume)Ordered By: Melissa Gonzales on 05-08-2025 Calcium [Mass/Vol] 9.5 mg/dL 7.6-11.0 [facility] Serum or plasma urea nitroge n measurement (mass/volume)Ordered By: Melissa Gonzales on 05-08-2025 Urea nitrogen [Mass/Vol] 7 mg/dL 4-19 [facility] Sodium levelOrdered By: Denia Gonzales on 05-08-2025 Sodium [Moles/Vol] 140 mmol/L 133-145 [facility] Total proteinOrdered By: Madalyn Gonzales on 05-08-2025 Protein [Mass/Vol] 7.7 g/dL 5.9-8.4 [facility] Venous Duplex US, Unilateral on 05-08-2025 Venous Duplex US, Unilateral [facility] [address] [address] Venous Duplex US, Unilateral 05/08/25 1405 MR#: [id number] Acct: [id number] Name: DARWIN PORTILLO Rep #: [id number] : 1965 60 From: Panda Ricks MD Attending Dr: Status: DEP ER Ordering Dr: Melissa Gonzales DO Date: 05/08/25 Location: ED Sex: F C Admitted: Reason For Study Reason For Study: LLE Pain RIGHT LEFT FV is compressible, spontaneous, phasic, competent GSV is normal. and demonstrates normal augmentation. CFV is compressible, spontaneous, phasic, competent, Procedure and demonstrates normal augmentation. This is a venous duplex using B-mode, color flow and FV is compressible, spontaneous, phasic, competent spectral Doppler. and demonstrates normal augmentation. Exam performed portable in ED. POP V is compressible, spontaneous, phasic, competent The exam was diagnostic. and demonstrates normal augmentation. A preliminary report was called and/or faxed to T/P Trunk is compressible. 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 PTV is compressible. LT PerV is compressible. VL/Venous Duplex US, Unilateral Interpretation Summary Deep veins of the left lower extremity are patent and compressible segmentally. There is no evidence of left lower extremity deep vein thrombosis. The left great saphenous vein appears patent and compressible segmentally. Ordering Physician: Melissa Gonzales Referring Physician: Ginna Kowalski Performed By: Avlaro Urbina, RVT 05/13/25740 Date Panda Ricks MD CC: Dr. Melissa Gonzales DO; Dr. Ginna Kowalski MD Date Dictated: 05/08/251404 Date Transcribed: 05/13/25740 Staff Assistant: Signed Normal [facility] White blood cell (WBC) count Ordered By: Melissa Gonzales on 05-08-2025 WBC (Bld) [#/Vol] 8.9 10*3/uL 4.4-11.0 [facility] Absolute lymphocyte countOrd ered By: Per Marrero on 03-31-2025 Lymphocytes Auto (Unsp spec) [#/Vol] 2.62 10*3/uL 0.83-4.51 [facility] Absolute neutrophil countOrd ered By: Per Marrero on 03-31-2025 Neutrophils (Bld) [#/Vol] 4.1 10*3/uL 2.0-7.7 [facility] Anion gap in Serum or Plasma Ordered By: Per Marrero on 03-31-2025 Anion gap [Moles/Vol] 14 mmol/L 5-15 [facility] Automated lymphocyte count a s percentage of total leukocytesOrdered By: Per Marrero on 03-31-2025 Lymphocytes/100 WBC Auto (Unsp spec) 35.6 % - [facility] BUN/creatinine ratioOrdered By: Per Marrero on 03-31-2025 Urea nitrogen/Creatinine [Mass ratio] 15.4 mg/mg 10- [facility] Basophil percentageOrdered B y: Per Marrero on 03-31-2025 Basophils/100 WBC (Bld) 0.8 % 0-1 [facility] Bilirubin, totalOrdered By: Per Marrero on 03-31-2025 Bilirubin [Mass/Vol] 0.21 mg/dL 0.00-1.30 [facility] CBC W/Diff, Automatedon 03-12 Absolute Lymph 2.62 X10 3/uL Normal 0.83-4.51 [facility] Comment on above: Performed By: #### L 500.4050, L100.0100 #### [facility] [address] [place], [address] Absolute Neut 4.1 X10 3/uL Normal 2.0-7.7 [facility] Comment on above: Performed By: #### L 500.4050, L100.0100 #### [facility] [address] [place], [address] Basophils/100 WBC (Bld) 0.8 % Normal 0-1 [facility] Comment on above: Performed By: #### L 500.4050, L100.0100 #### [facility] [address] [place], [address] Eosinophils/100 WBC (Bld) 1.1 % Normal 0-5 [facility] Comment on above: Performed By: #### L 500.4050, L100.0100 #### [facility] [address] [place], [address] Erythrocyte distribution width (RBC) [Ratio] 13.3 % Normal 11.6-14.6 [facility] Comment on above: Performed By: #### L 500.4050, L100.0100 #### [facility] [address] [place], [address] Hematocrit (Bld) [Volume fraction] 39.7 % Normal 37-47 [facility] Comment on above: Performed By: #### L 500.4050, L100.0100 #### [facility] [address] [place], [address] Hemoglobin (Bld) [Mass/Vol] 13.3 g/dL Normal 12.0-15.0 [facility] Comment on above: Performed By: #### L 500.4050, L100.0100 #### [facility] [address] [place], [address] IG% 0.300 Normal 0.0-0.9 [facility] Comment on above: Result Comment: IG% - Immature Granulocytes (promyelocytes, myelocytes and metamyelocytes) > 1% indicates that a LEFT SHIFT is Present. Performed By: #### L 500.4050, L100.0100 #### [facility] [address] [place], [address] Lymphocytes/100 WBC (Bld) 35.6 % Normal 19-41 [facility] Comment on above: Performed By: #### L 500.4050, L100.0100 #### [facility] [address] [place], [address] MCH (RBC) [Entitic mass] 31.1 pg Normal 27.0-32.0 [facility] Comment on above: Performed By: #### L 500.4050, L100.0100 #### [facility] [address] [place], [address] MCHC (RBC) [Mass/Vol] 33.5 g/dL Normal 32-36 [facility] Comment on above: Performed By: #### L 500.4050, L100.0100 #### [facility] [address] [place], [address] MCV (RBC) [Entitic vol] 93.0 fL Normal 81-99 [facility] Comment on above: Performed By: #### L 500.4050, L100.0100 #### [facility] [address] [place], [address] Monocytes/100 WBC (Bld) 6.9 % Normal 0-10 [facility] Comment on above: Performed By: #### L 500.4050, L100.0100 #### [facility] [address] [place], [address] Neutrophils/100 WBC (Bld) 55.3 % Normal 47-70 [facility] Comment on above: Performed By: #### L 500.4050, L100.0100 #### [facility] [address] [place], [address] Nucleated RBC (Bld) [#/Vol] 0 10*3/uL Normal 0-5 [facility] Comment on above: Performed By: #### L 500.4050, L100.0100 #### [facility] [address] [place], [address] Platelet mean volume (Bld) [Entitic vol] 9.0 fL Normal 6.2-12.0 [facility] Comment on above: Performed By: #### L 500.4050, L100.0100 #### [facility] [address] [place], [address] Platelets (Bld) [#/Vol] 333 10*3/uL Normal 150-450 [facility] Comment on above: Performed By: #### L 500.4050, L100.0100 #### [facility] [address] [place], [address] RBC (Bld) [#/Vol] 4.27 10*6/uL Normal 4.2-5.4 [facility] Comment on above: Performed By: #### L 500.4050, L100.0100 #### [facility] [address] [place], [address] RDW SD 45.1 fl High 35.1-43.9 [facility] Comment on above: Performed By: #### L 500.4050, L100.0100 #### [facility] [address] [place], [address] WBC (Bld) [#/Vol] 7.4 10*3/uL Normal 4.4-11.0 [facility] Comment on above: Performed By: #### L 500.4050, L100.0100 #### [facility] [address] [place], [address] Carbon dioxide, total [Moles /volume] in Central venous bloodOrdered By: Per Marrero on 03-31-2025 CO2 [Moles/Vol] 23.0 mmol/L 21.0-32.0 [facility] Chloride assayOrdered By: Ray Marrero on 03-31-2025 Chloride [Moles/Vol] 105 mmol/L 98-108 [facility] Comprehensive Metabolic Prof ilon 03-31-2025 Albumin [Mass/Vol] 4.3 g/dL Normal 3.4-4.8 [facility] Comment on above: Performed By: #### L 500.4050, L100.0100 #### [facility] [address] [place], [address] Albumin/Globulin [Mass ratio] 1.5 {ratio} Normal 0.9-2.4 [facility] Comment on above: Performed By: #### L 500.4050, L100.0100 #### [facility] [address] [place], [address] ALK PHOS 95 U/L Normal 35-104 [facility] Comment on above: Performed By: #### L 500.4050, L100.0100 #### [facility] [address] [place], [address] ALT [Catalytic activity/Vol] 25 U/L Normal <=34 [facility] Comment on above: Performed By: #### L 500.4050, L100.0100 #### [facility] [address] [place], [address] AST [Catalytic activity/Vol] 18 U/L Normal <=31 [facility] Comment on above: Performed By: #### L 500.4050, L100.0100 #### [facility] [address] [place], [address] Bilirubin [Mass/Vol] 0.21 mg/dL Normal 0.00-1.30 [facility] Comment on above: Performed By: #### L 500.4050, L100.0100 #### [facility] [address] [place], [address] BUN/CRE 15.4 RATIO Normal 10-20 [facility] Comment on above: Performed By: #### L 500.4050, L100.0100 #### [facility] [address] [place], [address] Calcium [Mass/Vol] 9.4 mg/dL Normal 7.6-11.0 [facility] Comment on above: Performed By: #### L 500.4050, L100.0100 #### [facility] [address] [place], [address] Chloride [Moles/Vol] 105 mmol/L Normal 98-108 [facility] Comment on above: Performed By: #### L 500.4050, L100.0100 #### [facility] [address] [place], [address] CO2 [Moles/Vol] 23.0 mmol/L Normal 21.0-32.0 [facility] Comment on above: Performed By: #### L 500.4050, L100.0100 #### [facility] [address] [place], [address] Creatinine [Mass/Vol] 0.63 mg/dL Low 0.70-1.20 [facility] Comment on above: Performed By: #### L 500.4050, L100.0100 #### [facility] [address] [place], [address] ECRCL 109.53 ml/min Normal 50-250 [facility] Comment on above: Performed By: #### L 500.4050, L100.0100 #### [facility] [address] [place], [address] GAP 14 Normal 5-15 [facility] Comment on above: Performed By: #### L 500.4050, L100.0100 #### [facility] [address] [place], [address] GFR/1.73 sq M.predicted among non-blacks MDRD (S/P/Bld) [Vol rate/Area] 102 mL/min/{1.73_m2} Normal >60 [facility] Comment on above: Result Comment: mL/m in/1.73m2 CKD-EPI Creatinine Equation (2020) Performed By: #### L 500.4050, L100.0100 #### [facility] [address] [place], [address] Globulin (S) [Mass/Vol] 2.9 g/dL Normal 2.2-4.2 [facility] Comment on above: Performed By: #### L 500.4050, L100.0100 #### [facility] [address] [place], [address] Glucose [Mass/Vol] 90 mg/dL Normal 70-99 [facility] Comment on above: Performed By: #### L 500.4050, L100.0100 #### [facility] [address] [place], [address] Potassium [Moles/Vol] 3.8 mmol/L Normal 3.3-5.1 [facility] Comment on above: Performed By: #### L 500.4050, L100.0100 #### [facility] [address] [place], [address] Sodium [Moles/Vol] 142 mmol/L Normal 133-145 [facility] Comment on above: Performed By: #### L 500.4050, L100.0100 #### [facility] [address] [place], [address] T PROT 7.1 g/dL Normal 5.9-8.4 [facility] Comment on above: Performed By: #### L 500.4050, L100.0100 #### [facility] [address], [address] Urea nitrogen [Mass/Vol] 10 mg/dL Normal 4-19 [facility] Comment on above: Performed By: #### L 500.4050, L100.0100 #### [facility] [address], [address] Emergency Department Summary on 03-31-2025 Emergency Department Summary [facility] Medical Records Department [address] [place] [address] Emergency Department Summary 03/31/25 MR#: [id number] Acct: [id number] Name: DARWIN PORTILLO Rep #: [id number] : 1965 60 From: Per Marrero MD [...] 1 - 2 puff Inhalation Q4H PRN UT N 05/01/14 02/20/25 History aerosol inhaler Asthma [...] 8 mg PO Q8H PRN PRN Nausea 5 02/20/25 History tablet acetaminophen 500 mg [...] chest pain (more content not included)... Normal [facility] Eosinophil percentageOrdered By: Per Marrero on 03-31-2025 Eosinophils/100 WBC (Bld) 1.1 % 0-5 [facility] Erythrocyte distribution wid th ratioOrdered By: Per Marrero on 03-31-2025 Erythrocyte distribution width (RBC) [Ratio] 13.3 % 11.6-14.6 [facility] Erythrocyte distribution wid th standard deviationOrdered By: Per Marrero on 03-31-2025 Erythrocyte distribution width (RBC) [Ratio] 45.1 fl High 35.1-43.9 [facility] Glomerular filtration rate ( GFR) estimation/1.73 sq m using serum, plasma, or whole bOrdered By: Per Marrero on 03-31-2025 GFR/1.73 sq M.predicted among non-blacks MDRD (S/P/Bld) [Vol rate/Area] 102 mL/min/{1.73_m2} >60 [facility] Comment on above: mL/min/1.73m2 CKD-EP I Creatinine Equation (2020) Hematocrit Auto (Bld) [Volum e fraction]Ordered By: Per Marrero on 03-31-2025 Hematocrit (Bld) [Volume fraction] 39.7 % 37-47 [facility] Hemoglobin measurementOrdere d By: Per Marrero on 03-31-2025 Hemoglobin (Bld) [Mass/Vol] 13.3 g/dL 12.0-15.0 [facility] Immature granulocytes/100 WB C Auto (Bld)Ordered By: Per Marrero on 03-31-2025 Immature granulocytes/100 WBC (Bld) 0.300 % 0.0-0.9 [facility] Comment on above: IG% - Immature Granu locytes (promyelocytes, myelocytes and metamyelocytes) > 1% indicates that a LEFT SHIFT is Present. Laboratory - Chemistry and C hemistry - challengeOrdered By: Per Marrero on 03-31-2025 AST [Catalytic activity/Vol] 18 U/L <32 [facility] MCV (mean corpuscular volume ) determinationOrdered By: Per Marrero on 03-31-2025 MCV (RBC) [Entitic vol] 93.0 fL 81-99 [facility] Mean corpuscular hemoglobin (MCH) determinationOrdered By: Per Marrero on 03-31-2025 MCH (RBC) [Entitic mass] 31.1 pg 27.0-32.0 [facility] Mean corpuscular hemoglobin concentration (MCHC) determinationOrdered By: Per Marrero on 03-31-2025 MCHC (RBC) [Mass/Vol] 33.5 g/dL 32-36 [facility] Mean platelet volume determi nationOrdered By: Per Marrero on 03-31-2025 Platelet mean volume (Bld) [Entitic vol] 9.0 fL 6.2-12.0 [facility] Monocyte percentageOrdered B y: Per Marrero on 03-31-2025 Monocytes/100 WBC (Bld) 6.9 % 0-10 [facility] Neutrophil percentageOrdered By: Per Marrero on 03-31-2025 Neutrophils/100 WBC (Bld) 55.3 % 47-70 [facility] Nucleated red blood cell per centageOrdered By: Per Marrero on 03-31-2025 Nucleated RBC/100 WBC (Bld) [Ratio] 0 % 0-5 [facility] Platelet countOrdered By: Ray Marrero on 03-31-2025 Platelets (Bld) [#/Vol] 333 10*3/uL 150-450 [facility] Potassium measurement (mass/ volume)Ordered By: Per Marrero on 03-31-2025 Potassium (Unsp spec) [Mass/Vol] 3.8 mmol/L 3.3-5.1 [facility] RBC Auto (Bld) [#/Vol]Ordere d By: Per Marreor on 03-31-2025 RBC (Bld) [#/Vol] 4.27 10*6/uL 4.2-5.4 [facility] Serum creatinine measurement (mass/volume)Ordered By: Per Marrero on 03-31-2025 Creatinine [Mass/Vol] 0.63 mg/dL Low 0.70-1.20 [facility] Serum globulin measurementOr dered By: Per Marrero on 03-31-2025 Globulin (S) [Mass/Vol] 2.9 g/dL 2.2-4.2 [facility] Serum glucose measurement (m ass/volume)Ordered By: Per Marrero on 03-31-2025 Glucose [Mass/Vol] 90 mg/dL 70-99 [facility] Serum or plasma alanine bro otransferase (ALT) measurementOrdered By: Per Marrero on 03-31-2025 ALT [Catalytic activity/Vol] 25 U/L <35 [facility] Serum or plasma albumin laura urement (mass/volume)Ordered By: Per Marrero on 03-31-2025 Albumin [Mass/Vol] 4.3 g/dL 3.4-4.8 [facility] Serum or plasma albumin/glob ulin mass ratioOrdered By: Per Marrero on 03-31-2025 Albumin/Globulin [Mass ratio] 1.5 {ratio} 0.9-2.4 [facility] Serum or plasma alkaline sabino sphatase measurementOrdered By: Per Marrero on 03-31-2025 ALP [Catalytic activity/Vol] 95 U/L 35-104 [facility] Serum or plasma calcium laura urement (mass/volume)Ordered By: Per Marrero on 03-31-2025 Calcium [Mass/Vol] 9.4 mg/dL 7.6-11.0 [facility] Serum or plasma urea nitroge n measurement (mass/volume)Ordered By: Per Marrero on 03-31-2025 Urea nitrogen [Mass/Vol] 10 mg/dL 4-19 [facility] Sodium levelOrdered By: Per Marrero on 03-31-2025 Sodium [Moles/Vol] 142 mmol/L 133-145 [facility] Total proteinOrdered By: Jose Marrero on 03-31-2025 Protein [Mass/Vol] 7.1 g/dL 5.9-8.4 [facility] White blood cell (WBC) count Ordered By: Per Marrero on 03-31-2025 WBC (Bld) [#/Vol] 7.4 10*3/uL 4.4-11.0 [facility] Oncology Visit Reporton Oncology Visit Report [facility] [address] [place] [address] OFFICE VISIT Date of Service: 03/13/25 1307 MR#: [id number] Acct: [id number] Name: DARWIN PORTILLO Rep #: [id number] : 1965 From: Emmie Ramirez NP BROACH OPERATOR -C Age/Sex: 60/F [facility] Status: Signed Unable Date 03/13/25 Patient: DARWIN PORTILLO : [address] Kowalski, We recently received a referral from you for Ms. Portillo, as she meets criteria for lung cancer [...] contact the lung cancer screening program at [facility] at with any further questions or concerns. Sincerely, Emmie Ramirez, LIFE SCIENCES TEACHER-CREDIT REPORT CHECKER, AOCNP 03/13/25 1308 Date Emmie Ramirez NP BROACH OPERATOR-C Cosigner Signature: Date (if applicable) CC: Dr. Ginna Kowalski MD Normal [facility] Bedside Glucoseon 02-21-2025 FINGERSTICK GLU 108 mg/dL High 74-106 [facility] Comment on above: Result Comment: JUAN C BAUM OF PATIENT CARE PER NURSING PROTOCOL Performed By: #### L 501.080 ####[facility] [address] [place], [address] Foot min 3 Viewson 5 Foot min 3 Views [facility] Imaging Services [address] [address] Foot min 3 Views MR#: [id number] Acct: [id number] Name: DARWIN PORTILLO Rep #: [id number] : 1965 F 60 From: Ramin Taveras MD PCP: Dr. Ginna Kowalski MD [place] [facility] Study: Foot min 3 Views Date of Exam: 02/21/25 Exam# [id number] Ordering Dr: Markel Leyva DPM EXAM: XR [...] operative note for further details. Reading Location: [facility] CC: DPJudy Leyva; Dr. Ginna Kowalski MD Staff Assistant: Signed Normal [facility] Glucose measurement at [facility] deOrdered By: Markel Leyva on 02-21-2025 Glucose [Mass/Vol] 108 mg/dL High 74-106 [facility] Comment on above: MANAGEMENT OF PATIEN T CARE PER NURSING PROTOCOL MR/POSTOP.ANEon 02-21-2025 [facility] [address] [place] [address] Anesthesia Postop Eval I 02/21/25 1238 MR#: [id number] Acct: [id number] Name: DARWIN PORTILLO Rep #: [id number] : 1965 60 From: Sheree Simpson CRNA PCP: Dr. Ginna Kowalski MD [place] [facility] [place] Race: C Location: [place] [address] Anesthesia: Postop Eval I Current Vital Signs [...] completed: Yes 02/21/25 1238 Date Sheree Simpson DIAGNOSTIC MEDICAL SONOGRAPHER Cosigner Signature: Date CC: Signed Normal [facility] MR/[id number] 02-21-2025 [facility] Medical Records Department [address] [place] [address] Anesthesia Postop Eval II 02/21/25 1255 MR#: [id number] Acct: [id number] Name: DARWIN PORTILLO Rep #: [id number] : 1965 60 From: Edgardo Toth MD PCP: Dr. Ginna Kowalski MD Status:REG [facility] Y Race: C Location: [place] [address] Anesthesia Postop Eval I Sum Postop Eval Completion status Anesthesia document: Postop Eval 1 completed: Yes Anesthesia Postop Eval I Summary Anesthesia Postop Eval I Summary: Anesthesia Postop Eval I: Assessment Summary Airway patent Yes 02/21/25 12:38 DIAGNOSTIC MEDICAL SONOGRAPHER.HENRRYOBY Spontaneous unlabored Yes 02/21/25 12:38 DIAGNOSTIC MEDICAL SONOGRAPHER.HENRRYOBClifton respirations Mental status Awake,Calm 02/21/25 12:38 DIAGNOSTIC MEDICAL SONOGRAPHER.SKOBY nausea No 02/21/25 12:38 DIAGNOSTIC MEDICAL SONOGRAPHER.SKOBY Vomiting No 02/21/25 12:38 DIAGNOSTIC MEDICAL SONOGRAPHER.SKOBY Anesthesia Postop Eval I: Fluid Summary Crystalloid volume administer 1,200 02/21/25 12:38 DIAGNOSTIC MEDICAL SONOGRAPHER.SKOBY (ml) Colloids volume administered ( ml) Blood Product volume administered (ml) Total IV fluid infused 1,200 02/21/25 12:38 DIAGNOSTIC MEDICAL SONOGRAPHER.SKOBY Anesthesia Postop Eval I: Summary Notes Anesthesia Complication No 02/21/25 12:38 DIAGNOSTIC MEDICAL SONOGRAPHER.SKOBY Anesthesia Complication Comment: Post-operative progress note Anesthesia: Postop Eval II Evaluation Mental status: Awake Pain Level: 2 nausea: No Vomiting: No 02/21/25 1255 Date Edgardo Mayes Signature: Date CC: Signed Normal [facility] Operative Reporton 5 Operative Report [facility] Medical Records Department [address] [place] [address] Operative Report 02/21/25 0742 MR#: [id number] Acct: [id number] Name: DARWIN PORTILLO Judy Rep #: [id number] : 1965 60 From: Markel Leyva DPM PCP: Dr. Ginna Kowalski MD Status:[facility] [place] [facility] Problems Associated Problem List Diagnoses (1) Pain [...] deformity, left foot Surgery/Procedure Performed: Procedure #1: [place] of bone marrow aspirate concentrate, left foot [...] Application of posterior splint, left lower extremity paraeducator: Yes Brake Repair Mechanic: Angel Hurst Tasks completed by nurse first aid: Opening, Closing, Harvesting grafts, Dissecting tissue and Implanting device Additional regulatory assistant?: No Type of Anesthesia: General/Regional and [...] all DRAINS/GRAFTS/IMPLANTS that apply: Graft Graft details: Rolly , Tissue Tissue details: 2 cc via flow, 8 cc of bone marrow aspirate concentrate and Implanted device Implanted device details: 500 headless compression screws, plate and 2.7 screws locking and nonlocking Special Medications: Per anesthesia Estimated Blood Loss: 40 cc Fluids Replaced: Per anesthesia Specimen collected: No Description of surgery: Indications For Operation: Ms. Portillo is a 60-year-old female who was admitted to [facility] for elective left foot major surgery due to her cavus deformity. Patient is well-known to my private office and has been treated conservatively for greater than 6 months due to her cavus foot deformity. 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 Normal [facility] Medical Records Department [address] [place] [address] PAT - Anesthesia 02/07/25 1808 MR#: [id number] Acct: [id number] Name: DARWIN PORTILLO Rep #: [id number] : 1965 60 From: Saul Vaca MD PCP: Dr. Ginna Kowalski MD [place] [facility] Race[place] C [place] [facility] [place] Pre-Assessment Diagnosis/Proposed Procedure Planned Operative Procedure(s): HARVEST OF BONE MARROW ASPIRATE CONCENTRATE,BONILLA OSTEOTOMY WITH LATERAL SHIFT OF LEFT CALCANEOUS WITH PERONEOUS LONGIS BREVIS TENDON TRANSFER.ENDOSCOPIC PLANTAR FASCIA RELEASE,DORSIFLEXION OSTEOTOMY OF THE FIRST METATARSAL,OSTEOTOMY OF THE LEFT TARSAL BONE. 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 - clinical data assistant: Anesthesia History - clinical data assistant Hx Hospitalization No 02/07/25 09:20 Any Problems [...] take am of surgery PONV PONV - clinical data assistant: PONV - clinical data assistant Female Yes 02/07/25 09:20 HX of Motion [...] 12/17/23 12:56 Respiratory Assessment Respiratory Assessment - clinical data assistant: Respiratory Tract Infection Hx - clinical data assistant Hx Respiratory Tract Infection No 02/07/25 09:20 STOP Sleep Apnea STOP Sleep Apnea - clinical data assistant: STOP Sleep Apnea - clinical data assistant Hx Hypertension No: HYPOTENSION 02/07/25 09:20 Hx [...] Tobacco Use History Tobacco Use History - clinical data assistant: Tobacco Use History - clinical data assistant Tobacco Use Cigarettes 07/19/21 08:09 Smoking Status Current every day smoker 02/07/25 09:20 Hx Tobacco Use Yes 02/07/25 09:20 Years Smoking Packs Smoked per Day Smoking Cessation Date was within the last 15 years Hx Smoking Cessation Date Hx Smoking Cessation Counseling Hematologic Medial History Hematologic Hx - clinical data assistant: 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 Specify any problems Hx of Preganancy in last 3 No 02/07/25 09:20 Months Nurse Filling Out Transfusion DSCHRIBER 02/07/25 09:20 Questions: Date: 02/07/25 02/07/25 09:20 Time: 09:02/07/25 09:20 Patient unable to answer at this time (ie. confused, unrespo /Reproduction History /Reproductive History - clinical data assistant: /Reproductive Hx- clinical data assistant Hx Now No 02/07/25 09:20 Gestational Age (in weeks): EDC: Hx Hx Para Hx Section SAB No 02/07/25 09:20 PFSH Medical History (Updated 02/07/25 @ 09:28 by [...] Q4H P (more content not included)... Normal [facility] Magnesiumon 02-07-2025 Magnesium [Mass/Vol] 2.2 mg/dL Normal 1.5-2.2 [facility] Comment on above: Performed By: #### L 501.5243 #### [facility] [place] [place], [address] Magnesium measurement (mass/ volume)Ordered By: Saul Vaca on 02-07-2025 Magnesium (Unsp spec) [Mass/Vol] 2.2 mg/dL 1.5-2.2 [facility] Nicotine Screen Bloodon 01-09 COTININE BLOOD 188.7 ng/mL Normal . [facility] Comment on above: Result Comment: This test was developed and its performance characteristics determined by [facility]. It has not been cleared or approved by the Food and Drug Administration. Cotinine levels greater than 20.0 are consistent with the use of tobacco or tobacco cessation products. Performed at: [address] [id number] Sensory Scientist: Natacha Hays MD, Phone: [phone] Performed By: #### L 3600.3400, L501.9985, L3410.9992 ####[facility] [address] [place], [place], [id number] NICOTINE BLOOD 10.3 ng/mL Normal . [facility] Comment on above: Result Comment: This test was developed and its performance characteristics determined by [facility]. It has not been cleared or approved by the Food and Drug Administration. Nicotine levels greater than 2.0 are consistent with the use of tobacco or tobacco cessation products. Performed By: #### L 3600.3400, L501.9985, L3410.9992 ####[facility] [address] [place], [place], [address] L3410.9992on 01-23-2025 [facility] Misc. COMMENT Normal . [facility] Comment on above: Order Comment: [id number] Result Comment: Test Ordered: [id number] 25-Hydroxyvitamin D LCMS D2+D3 25-Hydroxy, Vitamin D 16 [L ] ng/mL ES Reference Range: . Reference Range: All Ages: Target levels 30 - 100 25-Hydroxy, Vitamin D-2 <1.0 ng/mL ES Reference Range: . This test was developed and its performance characteristics determined by [facility]. It has not been cleared or approved by the Food and Drug Administration. 25-Hydroxy, Vitamin D-3 15 ng/mL ES Reference Range: . This test was developed and its performance characteristics determined by [facility]. It has not been cleared or approved by the Food and Drug Administration. Performed at: [facility] [address] [place] [id number] Sensory Scientist: Cristino Singleton MD, Phone: [phone] Performed at: [facility] [address] [id number] Sensory Scientist: Miguel Benton PhD, Phone: [phone] Performed By: #### L 3600.3400, L501.9985, L3410.9992 ####[facility] [address] [place], [place], [id number] Hemoglobin A1con 01-18-2025 HbA1c (Bld) [Mass fraction] 5.5 % Normal <=5.6 [facility] Comment on above: Result Comment: Norm al < 5.7 % Prediabetic 5.7 - 6.4 % Diabetic >or= 6.5 % Please note range changes. Performed By: #### L 3600.3400, L501.9985, L3410.9992 #### [facility] [address] [place], [place], [id number] Hemoglobin A1c percentageon 01-18-2025 HbA1c (Bld) [Mass fraction] 5.5 % <5.7 [facility] Comment on above: Normal < 5.7 % Predi abetic 5.7 - 6.4 % Diabetic >or= 6.5 % Please note range changes. Serum or plasma nicotine barbara surement (mass/volume)on 01-18-2025 Nicotine [Mass/Vol] 10.3 ug/mL . [facility] Comment on above: This test was develo ped and its performance characteristicsdetermined by [facility]. It has not been cleared orapproved by the Food and Drug Administration.Nicotine levels greater than 2.0 are consistent with theuse of tobacco or tobacco cessation products. Echo Completeon 12-23-2024 Echo Complete [facility] Services [address] [place] [place] [address] Echo Complete 12/23/24 1302 MR#: [id number] Acct: [id number] Name: DARWIN PORTILLO Rep #: [id number] : 1965 59 From: Kam Fonseca MD Attending Dr: Dr. Ginna Kowalski MD Status: REG CLI Ordering Dr: Ginna Kowalski MD Date: 12/23/24 Location: [facility] Sex: F C Admitted: Reason For [...] MD Date Dictated: 12/23/24 1302 Date Transcribed: 12/23/24 161 Staff Assistant: Signed Normal [facility] Echocardiogram study reportO rdered By: Kam Fonseca on 12-23-2024 Study report [facility] Cardiovascular Services [address] [place] [address] Echo Complete 12/23/24 1302 MR#: [id number] Acct: [id number] Name: DARWIN PORTILLO Rep #:[id number] : 1965 59 From: Kam Pena Attending Dr: Dr. Ginna Kowalski MD Status: REG I Ordering Dr: Ginna Kowalski MD Date: 0 12/23/24 Location: [facility] Sex: F C Admitted: Reason For [...] Dictated: 12/23/24 1302 Date Transcribed: 12/23/24 1614 Staff Assistant: Signed [facility] Work Phone: Lower Ext Joint Only (Routin e)on 12-19-2024 Lower Ext Joint Only (Routine) [facility] Imaging Services [address] [place], [place] [address], [place] [address] Lower Ext Joint Only (Routine) MR#: [id number] Acct: [id number] Name: DARWIN PORTILLO Rep #: [id number] : 1965 F 59 From: Garcia Issa i DO PCP: Dr. Ginna Kowalski MD Status: REG CLI Study: Lower Ext Joint Only (Routine) Date of Exam: 0 12/19/24 Exam# [id number] Ordering Dr: Markel Leyva DPM EXAM: Noncontrast [...] the sequela of prior trauma. Reading Location: [facility] CC: DPJudy Leyva; Dr. Ginna Kowalski MD Staff Assistant: Signed Normal [facility] Magnetic resonance imaging r eportOrdered By: Garcia Phelan on 12-19-2024 Study report [facility] Imaging Services [address] [place] [address] Lower Ext Joint Only (Routine) MR#: [id number] Acct: [id number] Name: DARWIN PORTILLO Rep #: [id number] : 1965 F 59 From: And torin Phelan DO PCP: Dr. Ginna Kowalski MD Status: REG CLI Study:Lower Ext Joint Only (Routine) Date of Exam: 12/19/24 Exam# [id number] Ordering Dr: Alvarado Leyva DPM EXAM: Noncontrast [...] of prior trauma. Reading Location: [facility] CC: JOSE ALBERTO Leyva; Dr. Ginna Kowalski MD ~ Staff Assistant: Signed [facility] Foot min 3 Viewson 4 Foot min 3 Views [facility] Imaging Services [address] [place] [address] Foot min 3 Views MR#: [id number] Acct: [id number] Name: DARWIN PORTILLO Rep #: [id number] : 1965 F 59 From: Mario Small DO PCP: Dr. Ginna Kowalski MD Status: REG CLI Study: Foot min 3 Views Date of Exam: 07/22/24 Exam# [id number] Ordering Dr: Ginna Kowalski MD [id number] INDICATION: LEFT FOOT SPUR EXAMINATION/TECHNIQUE: X-RAY - [...] EST , CC: Dr. Ginna Kowalski MD Staff Assistant: Signed Normal [facility] HIP, UNI W/ Pelvis 2-3 Views on 07-22-2024 HIP, UNI W/ Pelvis 2-3 Views [facility] Imaging Services [address] [address] HIP, UNI W/ Pelvis 2-3 Views MR#: [id number] Acct: [id number] Name: DARWIN PORTILLO Rep #: [id number] : 1965 F 59 From: Mario Small DO PCP: Dr. Ginna Kowalski MD Status: REG CL Study: HIP, UNI W/ Pelvis 2-3 Views Date of Exam: 08/04 Exam# [id number] Ordering Dr: Ginna Kowalski MD [id number] INDICATION: LEFT HIP PAIN, ABNORMAL GAIT EXAMINATION/TECHNIQUE: [...] Signed: Mario Small DO at 8:47 EST Reading Location ID and State: [facility] / [place] Tel [phone], Service support , CC: Dr. Ginna Kowalski MD Staff Assistant: Signed Normal [facility] CBC, Employeeon 07-01-2024 Absolute Lymph 1.43 X10 3/uL Normal 0.83-4.51 [facility] Comment on above: Performed By: #### L 400.0100, L500.2900, L100.0200 ####[facility] [address] [place], [address] Absolute Neut 4.0 X10 3/uL Normal 2.0-7.7 [facility] Comment on above: Performed By: #### L 400.0100, L500.2900, L100.0200 ####[facility] [address] [place], [address] Basophils/100 WBC (Bld) 1.0 % Normal 0-1 [facility] Comment on above: Performed By: #### L 400.0100, L500.2900, L100.0200 ####[facility] [address] [place], [address] Eosinophils/100 WBC (Bld) 1.3 % Normal 0-5 [facility] Comment on above: Performed By: #### L 400.0100, L500.2900, L100.0200 ####[facility] [address] [place], [address] Erythrocyte distribution width (RBC) [Ratio] 12.9 % Normal 11.6-14.6 [facility] Comment on above: Performed By: #### L 400.0100, L500.2900, L100.0200 ####[facility] [address] [place], [address] Hematocrit (Bld) [Volume fraction] 42.6 % Normal 37-47 [facility] Comment on above: Performed By: #### L 400.0100, L500.2900, L100.0200 ####[facility] [address] [place], [address] Hemoglobin (Bld) [Mass/Vol] 14.1 g/dL Normal 12.0-15.0 [facility] Comment on above: Performed By: #### L 400.0100, L500.2900, L100.0200 ####[facility] [address] [place], [address] Lymphocytes/100 WBC (Bld) 23.8 % Normal 19-41 [facility] Comment on above: Performed By: #### L 400.0100, L500.2900, L100.0200 ####[facility] [address] [place], [address] MCH (RBC) [Entitic mass] 31.3 pg Normal 27.0-32.0 [facility] Comment on above: Performed By: #### L 400.0100, L500.2900, L100.0200 ####[facility] [address] [place], [address] MCHC (RBC) [Mass/Vol] 33.1 g/dL Normal 32-36 [facility] Comment on above: Performed By: #### L 400.0100, L500.2900, L100.0200 ####[facility] [address] [place], [address] MCV (RBC) [Entitic vol] 94.5 fL Normal 81-99 [facility] Comment on above: Performed By: #### L 400.0100, L500.2900, L100.0200 ####[facility] [address] [place], [address] Monocytes/100 WBC (Bld) 7.8 % Normal 0-10 [facility] Comment on above: Performed By: #### L 400.0100, L500.2900, L100.0200 ####[facility] [address] [place], [address] Neutrophils/100 WBC (Bld) 65.9 % Normal 47-70 [facility] Comment on above: Performed By: #### L 400.0100, L500.2900, L100.0200 ####[facility] [address] [place], [address] NRBC # 0.00 10 3/uL Normal 0-5 [facility] Comment on above: Performed By: #### L 400.0100, L500.2900, L100.0200 ####[facility] [address] [place], [address] Nucleated RBC (Bld) [#/Vol] 0 10*3/uL Normal 0-5 [facility] Comment on above: Performed By: #### L 400.0100, L500.2900, L100.0200 ####[facility] [address] [place], [address] Platelet mean volume (Bld) [Entitic vol] 9.1 fL Normal 6.2-12.0 [facility] Comment on above: Performed By: #### L 400.0100, L500.2900, L100.0200 ####[facility] [address] [place], [address] Platelets (Bld) [#/Vol] 333 10*3/uL Normal 150-450 [facility] Comment on above: Performed By: #### L 400.0100, L500.2900, L100.0200 ####[facility] [address] [place], [address] RBC (Bld) [#/Vol] 4.51 10*6/uL Normal 4.2-5.4 [facility] Comment on above: Performed By: #### L 400.0100, L500.2900, L100.0200 ####[facility] [address] [place], [address] RDW SD 45.1 fl High 35.1-43.9 [facility] Comment on above: Performed By: #### L 400.0100, L500.2900, L100.0200 ####[facility] [address] [place], [address] WBC (Bld) [#/Vol] 6.0 10*3/uL Normal 4.4-11.0 [facility] Comment on above: Performed By: #### L 400.0100, L500.2900, L100.0200 ####[facility] [address] [place], [address] Employee Profileon 4 Albumin [Mass/Vol] 3.5 g/dL Normal 3.2-5.0 [facility] Comment on above: Performed By: #### L 400.0100, L500.2900, L100.0200 ####[facility] [address] [place], [address] Albumin/Globulin [Mass ratio] 0.9 {ratio} Normal 0.9-2.4 [facility] Comment on above: Performed By: #### L 400.0100, L500.2900, L100.0200 ####[facility] [address] [place], [address] ALK P 86 U/L Normal 45-117 [facility] Comment on above: Performed By: #### L 400.0100, L500.2900, L100.0200 ####[facility] [address] [place], [address] ALT [Catalytic activity/Vol] 25 U/L Normal 13-56 [facility] Comment on above: Performed By: #### L 400.0100, L500.2900, L100.0200 ####[facility] [address] [place], [address] AST [Catalytic activity/Vol] 13 U/L Low 15-37 [facility] Comment on above: Performed By: #### L 400.0100, L500.2900, L100.0200 ####[facility] [address] [place], [address] Bilirubin [Mass/Vol] 0.30 mg/dL Normal 0.20-1.00 [facility] Comment on above: Result Comment: For patients on eltrombopag therapy, use of Dimension [place] TBIL is not recommended. Performed By: #### L 400.0100, L500.2900, L100.0200 ####[facility] [address] [place], [address] Bilirubin.direct [Mass/Vol] 0.12 mg/dL Normal 0.00-0.30 [facility] Comment on above: Performed By: #### L 400.0100, L500.2900, L100.0200 ####[facility] [address] [place], [address] BUN/CRE 16.6 RATIO Normal 10-20 [facility] Comment on above: Performed By: #### L 400.0100, L500.2900, L100.0200 ####[facility] [address] [place], [address] CA,Total 9.2 mg/dL Normal 8.5-10.1 [facility] Comment on above: Performed By: #### L 400.0100, L500.2900, L100.0200 ####[facility] [address] [place], [address] Chloride [Moles/Vol] 108 mmol/L High 98-107 [facility] Comment on above: Performed By: #### L 400.0100, L500.2900, L100.0200 ####[facility] [address] [place], [address] CHOL:HDL 3.60 Normal [facility] Comment on above: Performed By: #### L 400.0100, L500.2900, L100.0200 ####[facility] [address] [place], [address] Cholesterol [Mass/Vol] 211 mg/dL High 200 [facility] Comment on above: Result Comment: <200 mg/dL Desirable 200-240 mg/dL Borderline >240 mg/dL High Risk Performed By: #### L 400.0100, L500.2900, L100.0200 ####[facility] [address] [place], [address] Cholesterol in HDL [Mass/Vol] 58 mg/dL Normal [facility] Comment on above: Result Comment: The drugs N-Acetylcysteine and Metamizole may falsely depress this assay. Reference Range HDL <40 mg/dL Low HDL Cholesterol HDL >or= 60 mg/dL High HDL Cholesterol Performed By: #### L 400.0100, L500.2900, L100.0200 ####[facility] [address] [place], [address] Cholesterol in LDL [Mass/Vol] 137 mg/dL High 0-130 [facility] Comment on above: Performed By: #### L 400.0100, L500.2900, L100.0200 ####[facility] [address] [place], [address] Cholesterol in VLDL [Mass/Vol] 16 mg/dL Normal 5-40 [facility] Comment on above: Performed By: #### L 400.0100, L500.2900, L100.0200 ####[facility] [address] [place], [address] CO2 [Moles/Vol] 29.0 mmol/L Normal 21.0-32.0 [facility] Comment on above: Performed By: #### L 400.0100, L500.2900, L100.0200 ####[facility] [address] [place], [address] Creatinine [Mass/Vol] 0.60 mg/dL Normal 0.55-1.02 [facility] Comment on above: Result Comment: The validity of the calculated GFR GFRAA in patients over 70 years has not been determined. Clinical correlation is essential. Performed By: #### L 400.0100, L500.2900, L100.0200 ####[facility] [address] [place], [address] EST GFR - AA 131 mL/min Normal >60 [facility] Comment on above: Result Comment: Afri can Tristanian GFR Calc Performed By: #### L 400.0100, L500.2900, L100.0200 ####[facility] [address] [place], [address] GAP 5 Normal 5-15 [facility] Comment on above: Performed By: #### L 400.0100, L500.2900, L100.0200 ####[facility] [address] [place], [address] GFR/1.73 sq M.predicted among non-blacks MDRD (S/P/Bld) [Vol rate/Area] 108 mL/min/{1.73_m2} Normal >60 [facility] Comment on above: Result Comment: Non- GFR Calc Performed By: #### L 400.0100, L500.2900, L100.0200 ####[facility] [address] [place], [address] Globulin (S) [Mass/Vol] 3.9 g/dL Normal 2.2-4.2 [facility] Comment on above: Performed By: #### L 400.0100, L500.2900, L100.0200 ####[facility] [address] [place], [address] Glucose [Mass/Vol] 106 mg/dL Normal 74-106 [facility] Comment on above: Result Comment: Fast ing Glucose result from 100 to 125 mg/dL suggests IMPAIRED HOMEOSTASIS per A.D.A. criteria. Performed By: #### L 400.0100, L500.2900, L100.0200 ####[facility] [address] [place], [address] LDH 204 U/L Normal 84-246 [facility] Comment on above: Performed By: #### L 400.0100, L500.2900, L100.0200 ####[facility] [address] [place], [address] Phosphate [Mass/Vol] 3.3 mg/dL Normal 2.5-4.9 [facility] Comment on above: Performed By: #### L 400.0100, L500.2900, L100.0200 ####[facility] [address] [place], [address] Potassium [Moles/Vol] 3.7 mmol/L Normal 3.5-5.1 [facility] Comment on above: Performed By: #### L 400.0100, L500.2900, L100.0200 ####[facility] [address] [place], [address] Sodium [Moles/Vol] 142 mmol/L Normal 136-145 [facility] Comment on above: Performed By: #### L 400.0100, L500.2900, L100.0200 ####[facility] [address] [place], [address] T PROT 7.4 g/dL Normal 6.4-8.2 [facility] Comment on above: Performed By: #### L 400.0100, L500.2900, L100.0200 ####[facility] [address] [place], [address] Triglyceride [Mass/Vol] 80 mg/dL Normal [facility] Comment on above: Result Comment: The drugs N-Acetylcysteine and Metamizole may falsely depress this assay. Serum Triglycerides Reference Interval Normal <150 mg/dL Borderline high 150 - 199 mg/dL High 200 - 499 mg/dL Very High > or = 500 mg/dL Performed By: #### L 400.0100, L500.2900, L100.0200 ####[facility] [address] [place], [address] Urea nitrogen [Mass/Vol] 10 mg/dL Normal 7-18 [facility] Comment on above: Performed By: #### L 400.0100, L500.2900, L100.0200 ####[facility] [address] [place], [address] URIC 4.3 mg/dL Normal 2.6-6.0 [facility] Comment on above: Result Comment: The drugs N-Acetylcysteine and Metamizole may falsely depress this assay. Performed By: #### L 400.0100, L500.2900, L100.0200 ####[facility] [address] [place], [address] Urinalysis, Employeeon 07-01 BILIRUBIN URINE Normal Negative [facility] Comment on above: Order Comment: CLEAN CATCH Result Comment: NOT WANTED Performed By: #### L 400.0100, L500.2900, L100.0200 ####[facility] [address] [place], [address] Clarity (U) Normal Clear [facility] Comment on above: Order Comment: CLEAN CATCH Result Comment: NOT WANTED Performed By: #### L 400.0100, L500.2900, L100.0200 ####[facility] [id number] [place], [address] Color (U) Normal Yellow [facility] Comment on above: Order Comment: CLEAN CATCH Result Comment: NOT WANTED Performed By: #### L 400.0100, L500.2900, L100.0200 ####[facility] [address] [place], [address] GLUCOSE, UR Normal Normal [facility] Comment on above: Order Comment: CLEAN CATCH Result Comment: NOT WANTED Performed By: #### L 400.0100, L500.2900, L100.0200 ####[facility] [address] [place], [address] KETONE UR Normal Negative [facility] Comment on above: Order Comment: CLEAN CATCH Result Comment: NOT WANTED Performed By: #### L 400.0100, L500.2900, L100.0200 ####[facility] [address] [place], [address] LEUK ESTERASE Normal Negative [facility] Comment on above: Order Comment: CLEAN CATCH Result Comment: NOT WANTED Performed By: #### L 400.0100, L500.2900, L100.0200 ####[facility] [address] [place], [address] Nitrite Ql (U) Normal Negative [facility] Comment on above: Order Comment: CLEAN CATCH Result Comment: NOT WANTED Performed By: #### L 400.0100, L500.2900, L100.0200 ####[facility] [address] [place], [address] OCCULT BLOOD-UR Normal Negative [facility] Comment on above: Order Comment: CLEAN CATCH Result Comment: NOT WANTED Performed By: #### L 400.0100, L500.2900, L100.0200 ####[facility] [address] [place], [address] pH UR Normal 5.0 - 8.0 [facility] Comment on above: Order Comment: CLEAN CATCH Result Comment: NOT WANTED Performed By: #### L 400.0100, L500.2900, L100.0200 ####[facility] [address] [place], [address] PROT DIPSTX Normal Negative [facility] Comment on above: Order Comment: CLEAN CATCH Result Comment: NOT WANTED Performed By: #### L 400.0100, L500.2900, L100.0200 ####[facility] [address] [place], [address] SP.GR. DIPSTX Normal 1.002-1.03 0 [facility] Comment on above: Order Comment: CLEAN CATCH Result Comment: NOT WANTED Performed By: #### L 400.0100, L500.2900, L100.0200 ####[facility] [address] [place], [address] UR Preservative Normal [facility] Comment on above: Order Comment: CLEAN CATCH Result Comment: NOT WANTED Performed By: #### L 400.0100, L500.2900, L100.0200 ####[facility] [address] [place], [address] UROBILI Normal Normal [facility] Comment on above: Order Comment: CLEAN CATCH Result Comment: NOT WANTED Performed By: #### L 400.0100, L500.2900, L100.0200 ####[facility] [address] [place], [address] Absolute lymphocyte countOrd ered By: Panda Young on 12-16-2023 Lymphocytes Auto (Unsp spec) [#/Vol] 1.86 10*3/uL 0.83-4.51 [facility] Automated lymphocyte count a s percentage of total leukocytesOrdered By: Panda Young on 12-16-2023 Lymphocytes/100 WBC Auto (Unsp spec) 35.5 % 19-41 [facility] Basophil percentageOrdered B y: Panda Young on 12-16-2023 Basophils/100 WBC (Bld) 0.6 % 0-1 [facility] Chloride [Moles/Vol] 111 mmol/L 98-107 [facility] Eosinophils/100 WBC (Bld) 1.9 % 0-5 [facility] Glucose [Mass/Vol] 98 mg/dL 74-106 [facility] Hemoglobin (Bld) [Mass/Vol] 13.2 g/dL 12.0-15.0 [facility] Monocytes/100 WBC (Bld) 8.8 % 0-10 [facility] Neutrophils (Bld) [#/Vol] 2.8 10*3/uL 2.0-7.7 [facility] Neutrophils/100 WBC (Bld) 53.0 % 47-70 [facility] Potassium [Moles/Vol] 3.9 mmol/L 3.5-5.1 [facility] Sodium [Moles/Vol] 140 mmol/L 136-145 [facility] WBC (Bld) [#/Vol] 5.2 10*3/uL 4.4-11.0 [facility] Determination of erythrocyte mean corpuscular volume (MCV)Ordered By: Panda Young on 12-16-2023 MCV (RBC) [Entitic vol] 94.1 fL 81-99 [facility] Erythrocyte distribution wid th ratioOrdered By: Panda Young on 12-16-2023 Erythrocyte distribution width (RBC) [Ratio] 12.5 % 11.6-14.6 [facility] Erythrocyte distribution wid th standard deviationOrdered By: Panda Young on 12-16-2023 Erythrocyte distribution width (RBC) [Entitic vol] 43.1 fL 35.1-43.9 [facility] Hematocrit Auto (Bld) [Volum e fraction]Ordered By: Panda Young on 12-16-2023 Hematocrit (Bld) [Volume fraction] 39.6 % 37-47 [facility] Immature granulocytes/100 WB C Auto (Bld)Ordered By: Panda Young on 12-16-2023 Immature granulocytes/100 WBC (Bld) 0.200 % 0.0-0.9 [facility] Comment on above: IG% - Immature Granu locytes (promyelocytes, myelocytes and metamyelocytes) > 1% indicates that a LEFT SHIFT is Present. Laboratory - Chemistry and C hemistry - challengeOrdered By: Panda Young on 12-16-2023 CO2 [Moles/Vol] 25.0 mmol/L 21.0-32.0 [facility] Urea nitrogen/Creatinine [Mass ratio] 20.4 mg/mg 10-20 [facility] Laboratory - Hematology and Cell countsOrdered By: Panda Young on 12-16-2023 MCH (RBC) [Entitic mass] 31.4 pg 27.0-32.0 [facility] MCHC (RBC) [Mass/Vol] 33.3 g/dL 32-36 [facility] Nucleated RBC/100 WBC (Bld) [Ratio] 0 % 0-5 [facility] Platelet mean volume (Bld) [Entitic vol] 9.4 fL 6.2-12.0 [facility] Platelets (Bld) [#/Vol] 266 10*3/uL 150-450 [facility] No Panel InformationOrdered By: Panda Young on 12-16-2023 Estimated Creatinine Clearance Calc 111.96 ml/min [facility] Estimated GFR (MDRD) Amer 123 mL/min >60 [facility] Comment on above: GFR Calc Estimated GFR (MDRD) Non-Af Amer 102 mL/min >60 [facility] Comment on above: Non- GFR Calc RBC Auto (Bld) [#/Vol]Ordere d By: Panda Young on 12-16-2023 RBC (Bld) [#/Vol] 4.21 10*6/uL 4.2-5.4 [facility] Serum or plasma calcium laura urement (mass/volume)Ordered By: Panda Young on 12-16-2023 Calcium [Mass/Vol] 8.7 mg/dL 8.5-10.1 [facility] Serum or plasma creatinine m easurement (mass/volume)Ordered By: Panda Young on 12-16-2023 Creatinine [Mass/Vol] 0.64 mg/dL 0.55-1.02 [facility] Comment on above: The validity of the calculated GFR & GFRAA in patients over 70 years has not been determined. Clinical correlation is essential. Serum or plasma urea nitroge n measurement (mass/volume)Ordered By: Panda Young on 12-16-2023 Urea nitrogen [Mass/Vol] 13 mg/dL 7-18 [facility] Thin prep Papanicolaou smear with manual screeningOrdered By: Panda Young on 04-06-2024 Thin prep Papanicolaou smear with manual screening 4 5-15 [facility] Absolute lymphocyte countOrd ered By: Sol Shirley on 06-21-2023 Lymphocytes Auto (Unsp spec) [#/Vol] 2.71 10*3/uL 0.83-4.51 [facility] Basophil percentageOrdered B y: Sol Shirley on 06-21-2023 Basophil percentage 0 SEEN /hpf 0-5 [facility] Basophils/100 WBC (Bld) 1.2 % 0-1 [facility] Bilirubin [Mass/Vol] 0.20 mg/dL 0.20-1.00 [facility] Comment on above: For patients on eltr ombopag therapy, use of Dimension [place] TBIL is not recommended. Chloride [Moles/Vol] 112 mmol/L 98-107 [facility] Eosinophils/100 WBC (Bld) 1.6 % 0-5 [facility] Glucose [Mass/Vol] 120 mg/dL 74-106 [facility] Comment on above: Fasting Glucose resu lt from 100 to 125 mg/dL suggests IMPAIRED HOMEOSTASIS per A.D.A. criteria. Neutrophils (Bld) [#/Vol] 3.4 10*3/uL 2.0-7.7 [facility] Neutrophils/100 WBC (Bld) 49.7 % 47-70 [facility] Potassium [Moles/Vol] 3.6 mmol/L 3.5-5.1 [facility] Protein [Mass/Vol] 7.4 g/dL 6.4-8.2 [facility] Sodium [Moles/Vol] 141 mmol/L 136-145 [facility] WBC (Bld) [#/Vol] 6.8 10*3/uL 4.4-11.0 [facility] Bilirubin Test strip Ql (U)O rdered By: Sol Shirley on 06-21-2023 Bilirubin Ql (U) Negative Negative [facility] Blood erythrocytes count (nu mber/volume)Ordered By: Sol Shirley on 06-21-2023 RBC (Bld) [#/Vol] 4.75 10*6/uL 4.2-5.4 [facility] Blood hemoglobin measurement (mass/volume)Ordered By: Sol Shirley on 06-21-2023 Hemoglobin (Bld) [Mass/Vol] 14.9 g/dL 12.0-15.0 [facility] Blood lymphocytes/100 leukoc ytesOrdered By: Sol Shirley on 06-21-2023 Lymphocytes/100 WBC (Bld) 39.9 % 19-41 [facility] Blood monocytes/100 leukocyt esOrdered By: Sol Shirley on 06-21-2023 Monocytes/100 WBC (Bld) 7.5 % 0-10 [facility] Blood platelet mean volumeOr dered By: Sol Shirley on 06-21-2023 Platelet mean volume (Bld) [Entitic vol] 9.1 fL 6.2-12.0 [facility] Calcium oxalate crystals det ection in urine sediment by light microscopyOrdered By: Sol Shirley on 06-21-2023 Calcium oxalate crystals LM Ql (Urine sed) 2+ /hpf [facility] Determination of erythrocyte mean corpuscular volume (MCV)Ordered By: Sol Shirley on 06-21-2023 MCV (RBC) [Entitic vol] 95.6 fL 81-99 [facility] Direct bilirubinOrdered By: Sol Shirley on 06-21-2023 Bilirubin.direct [Mass/Vol] 0.07 mg/dL 0.00-0.30 [facility] Hematocrit Auto (Bld) [Volum e fraction]Ordered By: Sol Shirley on 06-21-2023 Hematocrit (Bld) [Volume fraction] 45.4 % 37-47 [facility] Ketones Test strip Ql (U)Ord ered By: Sol Shirley on 06-21-2023 Ketones Ql (U) Negative Negative [facility] Laboratory - Chemistry and C hemistry - challengeOrdered By: Sol Shirley on 06-21-2023 ALP [Catalytic activity/Vol] 85 U/L 45-117 [facility] ALT [Catalytic activity/Vol] 28 U/L 13-56 [facility] CO2 [Moles/Vol] 26.0 mmol/L 21.0-32.0 [facility] Globulin (S) [Mass/Vol] 4.0 g/dL 2.2-4.2 [facility] Urea nitrogen/Creatinine [Mass ratio] 19.7 mg/mg 10-20 [facility] Laboratory - Hematology and Cell countsOrdered By: Sol Shirley on 06-21-2023 Erythrocyte distribution width (RBC) [Entitic vol] 44.2 fL 35.1-43.9 [facility] Erythrocyte distribution width (RBC) [Ratio] 12.6 % 11.6-14.6 [facility] Immature granulocytes/100 WBC (Bld) 0.100 % 0.0-0.9 [facility] Comment on above: IG% - Immature Granu locytes (promyelocytes, myelocytes and metamyelocytes) > 1% indicates that a LEFT SHIFT is Present. MCH (RBC) [Entitic mass] 31.4 pg 27.0-32.0 [facility] Nucleated RBC/100 WBC (Bld) [Ratio] 0 % 0-5 [facility] MCHC Auto (RBC) [Mass/Vol]Or dered By: Sol Shirley on 06-21-2023 MCHC (RBC) [Mass/Vol] 32.8 g/dL 32-36 [facility] Mucus LM Ql (Urine sed)Order ed By: Sol Shirley on 06-21-2023 Mucus Ql (Urine sed) 0 SEEN /hpf [facility] Nitrite Test strip Ql (U)Ord ered By: Sol Shirley on 06-21-2023 Nitrite Ql (U) Negative Negative [facility] No Panel InformationOrdered By: Sol Shirley on 06-21-2023 Estimated Creatinine Clearance Calc 86.98 ml/min [facility] Estimated GFR (MDRD) Amer 118 mL/min >60 [facility] Comment on above: GFR Calc Estimated GFR (MDRD) Non-Af Amer 98 mL/min >60 [facility] Comment on above: Non- GFR Calc Platelets bldOrdered By: Johanna Shirley on 06-21-2023 Platelets (Bld) [#/Vol] 319 10*3/uL 150-450 [facility] Protein Test strip Ql (U)Ord ered By: Sol Shirley on 06-21-2023 Protein Ql (U) 15 mg/dl Negative [facility] Serum or plasma albumin laura urement (mass/volume)Ordered By: Sol Shirley on 06-21-2023 Albumin [Mass/Vol] 3.4 g/dL 3.2-5.0 [facility] Serum or plasma calcium laura urement (mass/volume)Ordered By: Sol Shirley on 06-21-2023 Calcium [Mass/Vol] 9.0 mg/dL 8.5-10.1 [facility] Serum or plasma creatinine m easurement (mass/volume)Ordered By: Sol Shirley on 06-21-2023 Creatinine [Mass/Vol] 0.66 mg/dL 0.55-1.02 [facility] Comment on above: The validity of the calculated GFR & GFRAA in patients over 70 years has not been determined. Clinical correlation is essential. Serum or plasma urea nitroge n measurement (mass/volume)Ordered By: Sol Shirley on 06-21-2023 Urea nitrogen [Mass/Vol] 13 mg/dL 7-18 [facility] Squamous epithelial cells de tection in urine sediment by light microscopyOrdered By: Sol Shirley on 06-21-2023 Epithelial cells.squamous LM Ql (Urine sed) 0-5 SEEN /hpf 5-10 [facility] Thin prep Papanicolaou smear with manual screeningOrdered By: Sol Shirley on 06-21-2023 Thin prep Papanicolaou smear with manual screening 9 U/L 15-37 [facility] Thin prep Papanicolaou smear with manual screening 3 5-15 [facility] Urine blood detectionOrdered By: Sol Shirley on 06-21-2023 RBC Ql (U) 10 /ul Negative [facility] RBC Ql (U) 0 SEEN /hpf 0-5 [facility] Urine clarityOrdered By: Johanna Shirley on 06-21-2023 Clarity (U) Clear Clear [facility] Urine color determinationOrd ered By: Sol Shirley on 06-21-2023 Color (U) Yellow Yellow [facility] Urine glucose detectionOrder ed By: Sol Shirley on 06-21-2023 Glucose Ql (U) Normal mg/dl Normal [facility] Urine leukocyte esterase det ection by dipstickOrdered By: Sol Shirley on 06-21-2023 Leukocyte esterase Test strip Ql (U) 25 /ul Negative [facility] Urine pHOrdered By: Sol Shirley on 06-21-2023 pH (U) 6.0 [pH] 5.0 - 8.0 [facility] Urine sediment bacteria coun t by microscopy (number/high power field)Ordered By: Sol Shirley on 06-21-2023 Bacteria LM.HPF (Urine sed) [#/Area] 0 /[HPF] None Seen [facility] Urine specific gravity measu rementOrdered By: Sol Shirley on 06-21-2023 Specific gravity (U) [Rel density] 1.020 1.002-1.03 0 [facility] Urobilinogen Auto test strip Ql (U)Ordered By: Sol Shirley on 06-21-2023 Urobilinogen Ql (U) Normal mg/dl Normal [facility] Laboratory - Microbiology an d Antimicrobial susceptibilityon 04-21-2022 SARS-CoV-2 (COVID-19) RNA CONSUELO+probe Ql (Unsp spec) Detected [facility] Work Phone: CNOVon 12-21-2018 CNOV Office Visit ([facility]NNY[facility] ) -- DARWIN PORTILLO ([id number]) 1965 F Date Time Provider Department 12/21/18 12:30 PM SHAYY ELIZABETH During your visit today, we recorded the following information about you: Pulse Respiration Blood pressure Weight 62/minute 16/minute 124/70 91.6 kg Height 1.676 m Shayy Elizabeth MD 12/21/2018 1:12 PM Signed NEUROSURGERY CONSULT NOTE Shayy Elizabeth MD Date of visit: December 20, 2018 Patient Name: Ms.Joanne Portillo Date of : 1965 Current Age: [age] year old Sex: female MRN/E# [id number] Chief Complaint: Patient presents with: Back Pain: left knee HISTORY OF PRESENT ILLNESS : The patient is a 53 year old, right handed female who is referred by Dr. Kebede for neurosurgical evaluation. Ms. Portillo presents to the office today as a [...] 124/70 Pulse 62 Resp 16 Ht 5' 6" (1.68m) Wt 202 lb (91.6kg) SpO2 95% [...] upper or lower extremities proximally and distally. 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 No spasticity or tremor Reflexes [...] 4V AP/LAT/ FLEX/EXT; Future MD Ijeoma Orona APRN.CREDIT REPORT CHECKER 12/21/2018 1:19 PM Signed Addended by: IJEOMA AGUSTIN CREDIT REPORT CHECKER on: 12/21/2018 01:19 PM Modules accepted: Orders Referring Provider: CARA PATEL [[id number]] Allergies As of Date: 12/21/2018 Noted Allergy Reaction PERCOCET (OXYCODONE-ACETAMINOPHEN)1 09/16/2007 4 - Hives 9 - Itching VICODIN (HYDROCODONE-ACETAMINOPHE* 06/25/2012 9 - Itching Date Reviewed: 12/21/2018 Reviewed by: Shayy Elizabeth - Fully Assessed Reason for Visit: Back [...] [R63.4] INVALID FOR* Encounter Status:Closed by SHAYY ELIZABETH MD on 12/21/18 [facility] PROGRESSon 12-21-2018 Protein mass conc HNO ID: [id number] Author: Shayy Elizabeth Service: ? Author Type: Physician Type: Progress Notes Filed: 12/21/2018 1:12 PM Note Text: NEUROSURGERY CONSULT NOTE Shayy Elizabeth MD Date of visit: December 20, 2018 Patient Name: Ms.Joanne Portillo Date of : 1965 Current Age: [age] year old Sex: female MRN/E# [id number] Chief Complaint: Patient presents with: Back Pain: left knee HISTORY OF PRESENT ILLNESS : The patient is a 53 year old, right handed female who is referred by Dr. Kebede for neurosurgical evaluation. Ms. Portillo presents to the office today as a [...] 124/70 Pulse 62 Resp 16 Ht 5' 6" (1.68m) Wt 202 lb (91.6kg) SpO2 95% [...] upper or lower extremities proximally and distally. 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 No spasticity or tremor Reflexes [...] LUMBAR MOTION 4V AP/LAT/ FLEX/EXT; Future Shayy Elizabeth MD [facility] Office Visiton 07-20-2017 Alcoholism counseling (procedure) no [...] [facility] Work Phone: [phone] Tobacco use CPHS Current every day smoker Invali d Interpretation Code [facility] Work Phone: [phone] Office Visiton 07-04-2017 Protein mass conc Done Invalid Interpretation Code [facility] Work Phone: [phone] Protein mass conc no Invalid Interpretation Code [facility] Work Phone: [phone] Protein mass conc yes Invalid Interpretation Code [facility] Work Phone: [phone] Tobacco smoking status NHIS Current every day smoker Invalid Interpretation Code [facility] Work Phone: [phone] Office Visiton 06-29-2017 Alcoholism counseling (procedure) no Invalid Interpretation Code [facility] Work Phone: [phone] Documentation of current medications (procedure) Done Invalid Interpretation Code [facility] Work Phone: [phone] Smoking cessation education (procedure) yes Invalid Interpretation Code [facility] Work Phone: [phone] Tobacco use CPHS Current every day smoker Invali d Interpretation Code [facility] Work Phone: [phone] Office Visiton 06-09-2017 Alcoholism counseling (procedure) no Invalid Interpretation Code [facility] Work Phone: [phone] Documentation of current medications (procedure) Done Invalid Interpretation Code [facility] Work Phone: [phone] Smoking cessation education (procedure) yes Invalid Interpretation Code [facility] Work Phone: [phone] Tobacco use CPHS Current every day smoker Invali d Interpretation Code [facility] Work Phone: [phone] Office Visiton 04-27-2017 Alcoholism counseling (procedure) no Invalid Interpretation Code [facility] Work Phone: [phone] Documentation of current medications (procedure) Done Invalid Interpretation Code [facility] Work Phone: [phone] Protein mass conc no [facility] Work Phone: [phone] Protein mass conc Done [facility] Work Phone: [phone] Protein mass conc yes [facility] Work Phone: [phone] Smoking cessation education (procedure) yes Invalid Interpretation Code [facility] Work Phone: [phone] Tobacco smoking status NHIS Current every day smoker [facility] Work Phone: [phone] Tobacco use CPHS Current every day smoker Invali d Interpretation Code [facility] Work Phone: [phone] Office Visiton 04-13-2017 Alcoholism counseling (procedure) no Invalid Interpretation Code [facility] Work Phone: [phone] Documentation of current medications (procedure) Done Invalid Interpretation Code [facility] Work Phone: [phone] Protein mass conc no [facility] Work Phone: [phone] Protein mass conc Done [facility] Work Phone: [phone] Protein mass conc yes [facility] Work Phone: [phone] Smoking cessation education (procedure) yes Invalid Interpretation Code [facility] Work Phone: [phone] Tobacco smoking status NHIS Current every day smoker [facility] Work Phone: [phone] Tobacco use CPHS Current every day smoker Invali d Interpretation Code [facility] Work Phone: [phone] Office Visiton 03-10-2017 Protein mass conc no [facility] Work Phone: [phone] Protein mass conc Done [facility] Work Phone: [phone] Protein mass conc yes [facility] Work Phone: [phone] Tobacco smoking status NHIS [facility] Work Phone: [phone] Office Visiton 02-17-2017 Alcoholism counseling (procedure) no Invalid Interpretation Code [facility] Work Phone: [phone] Documentation of current medications (procedure) Done Invalid Interpretation Code [facility] Work Phone: [phone] Protein mass conc no [facility] Work Phone: [phone] Protein mass conc Done [facility] Work Phone: [phone] Protein mass conc yes [facility] Work Phone: [phone] Smoking cessation education (procedure) yes Invalid Interpretation Code [facility] Work Phone: [phone] Tobacco smoking status NHIS Current every day smoker [facility] Work Phone: [phone] Tobacco use CP Current every day smoker Invali d Interpretation Code [facility] Work Phone: [phone] Microbiology: Culture, Body Fluidon 01-31-2017 body fluid culture . Invalid Interpretation Code [facility] Work Phone: [phone] CUBF . Invalid Interpretation Code [facility] Work Phone: [phone] Microbiology: (P) Culture, B laura Fluidon 01-29-2017 body fluid culture . Invalid Interpretation Code [facility] Work Phone: [phone] Microbiology: (P) Culture, B laura Fluidon 01-25-2017 body fluid culture . Invalid Interpretation Code [facility] Work Phone: [phone] Microbiology: (P) Culture, B laura Fluidon 01-24-2017 body fluid culture . Invalid Interpretation Code [facility] Work Phone: [phone] Lab Report: GLUCOSE, SYNOVIA L FLUIDon 01-20-2017 GE use only - for LinkLogic import when terms are not otherwise specified 97 mg/dL Invalid Interpretation Code . [facility] Work Phone: [phone] GLU, SYN FLD 97 mg/dL Invalid Interpretation Code . [facility] Work Phone: [phone] Microbiology: (P) Culture, B laura Fluidon 01-20-2017 body fluid culture . Invalid Interpretation Code [facility] Work Phone: [phone] body fluid culture Cult, AnaerobicNo gr owth in 48 hours. Invalid Interpretation Code [facility] Work Phone: [phone] Microbiology: (P) Culture, B laura Fluidon 2017 body fluid culture . Invalid Interpretation Code [facility] Work Phone: [phone] Replaced Document: (P) Cultu re, Body Fluidon 01-18-2017 body fluid culture . Invalid Interpretation Code [facility] Work Phone: [phone] Lab Report: (P) Synovial Flu id RBC, WBC AND Diffon 01-17-2017 Cell Count, Synovial Fluid 0.3630 10 3 uL High 0.000-0.00 0 [facility] Work Phone: [phone] mononuclear cells, synovial fluid as percent of leukocytes 70.5 % Invalid Interpretation Code [facility] Work Phone: [phone] neutrophils, polymorphonuclear as percent of synovial fluid leukocytes 29.5 % Invalid Interpretation Code [facility] Work Phone: [phone] SYBF [place] WBC% 70.5 % Invalid Interpretation Code [facility] Work Phone: [phone] SYBF PMN WBC% 29.5 % Invalid Interpretation Code [facility] Work Phone: [phone] 0.3630 10 3 uL High 0.000-0.00 0 [facility] Work Phone: [phone] SYNOVIAL WBC 0.3490 10 3UL High 0.000-0.00 2 [facility] Work Phone: [phone] WBC, Fluid 0.3490 10 3UL High 0.000-0.00 2 [facility] Work Phone: [phone] Lab Report: Crystals, Body F luidon 01-17-2017 PATH REV Will follow Invalid Interpretation Code [facility] Work Phone: [phone] Pathology comment Will follow Invalid Interpretation Code [facility] Work Phone: [phone] Lab Report: Synovial Fluid R BC, WBC AND Diffon 01-17-2017 Erythrocytes (RBC) 0.0001 10*6/uL High 0 [facility] Work Phone: [phone] SYNOVIAL RBC 99 /uL High 0 [facility] Work Phone: [phone] Office Visiton 01-17-2017 Alcoholism counseling (procedure) no Invalid Interpretation Code [facility] Work Phone: [phone] Documentation of current medications (procedure) Done Invalid Interpretation Code [facility] Work Phone: [phone] Smoking cessation education (procedure) yes Invalid Interpretation Code [facility] Work Phone: [phone] Tobacco use CPHS Current every day smoker Invali d Interpretation Code [facility] Work Phone: [phone] Replaced Document: Crystals, Body Fluidon 01-17-2017 crystals, body fluid SYNOVIAL Invalid Interpretation Code [facility] Work Phone: [phone] CRYSTALS/BF SYNOVIAL Invalid Interpretation Code [facility] Work Phone: [phone] Replaced Document: Synovial Fluid RBC, WBC AND Diffon 01-17-2017 Lymphocytes/100 leukocytes 5 % Invalid Interpretation Code [facility] Work Phone: [phone] Lymphocytes/100 WBC (Bld) 5 % [facility] Work Phone: [phone] Monocytes 21 % Invalid Interpretation Code [facility] Work Phone: [phone] Monocytes #/vol (Bld) 21 % [facility] Work Phone: [phone] NEUTROPHIL 5 % Invalid Interpretation Code 0-25 [facility] Work Phone: [phone] neutrophils as percent of body fluid leukocytes 5 % Invalid Interpretation Code 0-25 [facility] Work Phone: [phone] OTHER CELL /SYN 69 % Invalid Interpretation Code [facility] Work Phone: [phone] other Cells 69 % Invalid Interpretation Code [facility] Work Phone: [phone] appearance, body fluid Sl Cl Invalid Interpretation Code CLEAR [facility] Work Phone: [phone] Body Fluid Total Volume 12.0 mL High 0.1-3.5 [facility] Work Phone: [phone] body fluids, viscosity Sl. Viscous Invalid Interpretation Code HIGH [facility] Work Phone: [phone] color, synovial fluid Yellow Invalid Interpretation Code Pale Yellow [facility] Work Phone: [phone] GE use only - for LinkLogic import when terms are not otherwise specified May follow Invalid Interpretation Code [facility] Work Phone: [phone] source of sample KNEE Invalid Interpretation Code [facility] Work Phone: [phone] SYNOVIAL COLOR Yellow Invalid Interpretation Code Pale Yellow [facility] Work Phone: [phone] SYNOVIAL SOURCE KNEE Invalid Interpretation Code [facility] Work Phone: [phone] SYNOVIAL TV 12.0 mL High 0.1-3.5 [facility] Work Phone: [phone] VISCOSITY/SYFL Sl. Viscous Invalid Interpretation Code HIGH [facility] Work Phone: [phone] Lab Report: CBC, Employeeon 04-15-2016 Absolute Neut 2.1 X10 3/UL Invalid Interpretation Code 2.0-7.7 [facility] Work Phone: [phone] Basophils/100 leukocytes 0.5 % Invalid Interpretation Code 0-1 [facility] Work Phone: [phone] Basophils/100 WBC (Bld) 0.5 % 0-1 [facility] Work Phone: [phone] Eosinophils/100 leukocytes 3.2 % Invalid Interpretation Code 0-5 [facility] Work Phone: 1() [phone] Eosinophils/100 WBC (Bld) 3.2 % 0-5 [facility] Work Phone: 1() 0 Erythrocyte distribution width Auto Ratio (RBC) 45.5 fL High 35.1-43.9 [facility] Work Phone: 1() 0 Erythrocyte distribution width Ratio (RBC) 45.5 fL High 35.1-43.9 [facility] Work Phone: [phone] Erythrocyte distribution width Ratio (RBC) 12.9 % 11.6-14.6 [facility] Work Phone: 1() 0 Erythrocytes (RBC) 3.91 10*6/uL Low 4.2-5.4 [facility] Work Phone: 1() 0 Hematocrit (HCT) 38.8 % Invalid Interpretation Code 37-47 [facility] Work Phone: [phone] Hematocrit Volume Fraction (Bld) 38.8 % 37-47 [facility] Work Phone: 1() 0 Hemoglobin (HGB) 12.7 g/dL Invalid Interpretation Code 12.0-15.0 [facility] Work Phone: 1() 0 Lymphocytes 1.75 X10 3/UL Invalid Interpretation Code 0.83-4.51 [facility] Work Phone: 1() 0 Lymphocytes #/vol (Bld) 1.75 X10 3/UL 0.83-4.51 [facility] Work Phone: [phone]) [phone] Lymphocytes/100 leukocytes 39.6 % Invalid Interpretation Code 19-41 [facility] Work Phone: [phone] Lymphocytes/100 WBC (Bld) 39.6 % 19- [facility] Work Phone: [phone] MCH 32.5 pg High 27.0-32.0 [facility] Work Phone: 1() 0 MCH Entitic mass (RBC) 32.5 pg High 27.0-32.0 [facility] Work Phone: [phone] MCHC 32.7 G/GL Invalid Interpretation Code 36 [facility] Work Phone: 1() 0 MCHC mass conc (RBC) 32.7 G/GL 32-36 [facility] Work Phone: 1() 0 MCV 99.2 fL High 81-99 [facility] Work Phone: 1() 0 MCV Entitic volume (RBC) 99.2 fL High 81-99 [facility] Work Phone: [phone] Monocytes/100 leukocytes 9.3 % Invalid Interpretation Code 0-10 [facility] Work Phone: [phone] Monocytes/100 WBC (Bld) 9.3 % 0-10 [facility] Work Phone: 1() 0 neutrophil count, blood 2.1 X10 3/UL Invalid Interpretation Code 2.0-7.7 [facility] Work Phone: [phone] Neutrophils #/vol (Bld) 2.1 X10 3/UL 2.0-7.7 [facility] Work Phone: [phone] Neutrophils Auto #/vol (Bld) 2.1 X10 3/UL Invalid Interpretation Code 2.0-7.7 [facility] Work Phone: 1() 0 Neutrophils/100 leukocytes 47.4 % Invalid Interpretation [...] Medicine and Orthopaedics Work Phone: [phone] Platelets #/vol (Bld) 224 10*3/mm3 150-450 [facility] Work Phone: [phone] PMV by Michelle 9.3 fL Invalid Interpretation Code 6.2-12.0 [facility] Work Phone: [phone] RBC #/vol (Bld) 3.91 10*6/uL Low 4.2-5.4 [facility] Work Phone: [phone] RDW SD 45.5 fL High 35.1-43.9 [facility] Work Phone: [phone] RDW-CA 12.9 % Invalid Interpretation Code 11.6-14.6 [facility] Work Phone: [phone] red blood cell distribution width, size density 45.5 fL High 35.1-43.9 [facility] Work Phone: [phone] WBC #/vol (Bld) 4.4 10*3/uL 4.4-11.0 [facility] Work Phone: [phone] WBC (Leukocytes) 4.4 10*3/uL Invalid Interpretation Code 4.4-11.0 [facility] Work Phone: [phone] Lab Report: Employee Profile on 04-15-2016 Alanine aminotransferase (ALT) 42 U/L Invalid Interpretation Code 12-78 [facility] Work Phone: [phone] Albumin 3.2 g/dL Low 3.4-5.0 [facility] Work Phone: [phone] Albumin/Globulin Ratio 1 {ratio} Invalid Interpretation Code 0.9-2.4 [facility] Work Phone: [phone] Alkaline phosphatase (ALP) 72 U/L Invalid Interpretation Code 50-136 [facility] Work Phone: [phone] ALP enzyme act/vol (Bld) 72 U/L Invalid Interpretation Code 50-136 [facility] Work Phone: [phone] Anion gap 5 mmol/L Invalid Interpretation Code 5-15 [facility] Work Phone: [phone] Anion gap 4 molar conc 5 Invalid Interpretation Code 5-15 [facility] Work Phone: [phone] Anion gap molar conc 5 mmol/L 5-15 [facility] Work Phone: [phone] Aspartate aminotransferase (AST) 21 U/L Invalid Interpretation Code 15-37 [facility] Work Phone: [phone] Bilirubin (direct) 0.07 mg/dL Invalid Interpretation Code 0.00-0.30 [facility] Work Phone: 1() 0 Bilirubin (total) 0.20 mg/dL Invalid Interpretation Code 0.20-1.00 [facility] Work Phone: [phone] BUN/Creatinine Ratio 28.9 RATIO High 10-20 [facility] Work Phone: [phone] Calcium 8.2 mg/dL Low 8.5-10.1 [facility] Work Phone: [phone] Chloride 109 mmol/L High 98-107 [facility] Work Phone: [phone] Cholesterol 164 mg/dL Invalid Interpretation Code 200 [facility] Work Phone: [phone] CO2 30.0 mmol/L Invalid Interpretation Code 21.0-32.0 [facility] Work Phone: CO2 ppres (BldV) 30.0 mmol/L Invalid Interpretation Code 21.0-32.0 [facility] Work Phone: [phone] Creatinine 0.62 mg/dL Invalid Interpretation Code 0.55-1.20 [facility] Work Phone: [phone] eGFR (non-black) 130 mL/min/{1.73_m2} Invalid Interpretation Code >60 [facility] Work Phone: [phone] eGFR (non-black) 107 mL/min/{1.73_m2} Invalid Interpretation Code >60 [facility] Work Phone: [phone] EST GFR - AA 130 mL/min Invalid Interpretation Code >60 [facility] Work Phone: [phone] Globulin 3.1 g/dL Invalid Interpretation Code 2.3-3.5 [facility] Work Phone: [phone] Globulin mass conc (S) 3.1 g/dL 2.3-3.5 [facility] Work Phone: [phone] Glucose 87 mg/dL Invalid Interpretation Code 70-110 [facility] Work Phone: [phone] Glucose mass conc 87 mg/dL Invalid Interpretation Code 70-110 [facility] Work Phone: [phone] HDL Cholesterol 66 mg/dL Invalid Interpretation Code [facility] Work Phone: [phone] lactate dehydrogenase - serum 195 U/L Invalid Interpretation Code 84-246 [facility] Work Phone: LDH 195 U/L Invalid Interpretation Code 84-246 [facility] Work Phone: [phone] LDL Cholesterol 87 mg/dL Invalid Interpretation Code 0-130 [facility] Work Phone: [phone] PHOS 3.4 mg/dL Invalid Interpretation Code 2.5-4.9 [facility] Work Phone: Phosphorus Concentratation-Rando m 3.4 mg/dL Invalid Interpretation Code 2.5-4.9 [facility] Work Phone: [phone] Potassium 4.4 mmol/L Invalid Interpretation Code 3.5-5.1 [facility] Work Phone: [phone] Protein 6.3 g/dL Low 6.4-8.2 [facility] Work Phone: [phone] Sodium 144 mmol/L Invalid Interpretation Code 136-145 [facility] Work Phone: [phone] Triglyceride 53 mg/dL Invalid Interpretation Code [facility] Work Phone: [phone] Urate 3.9 mg/dL Invalid Interpretation Code 2.6-6.0 [facility] Work Phone: [phone] Urea nitrogen 18 mg/dL Invalid Interpretation Code 7-18 [facility] Work Phone: [phone] very low density lipoproteins 11 mg/dL Invalid Interpretation Code 5-40 [facility] Work Phone: [phone] Lab Report: Nicotine Urine D rug Screenon 04-15-2016 GE use only - for LinkLogic import when terms are not otherwise specified Positive High <200 ng/mL [facility] Work Phone: [phone] Lab Report: Urinalysis, Empl oyeeon 04-15-2016 Albumin Ql (U) Negative Invalid Interpretation Code Negative [facility] Work Phone: [phone] Bilirubin Ql (U) Negative Invalid Interpretation Code Negative [facility] Work Phone: [phone] Ketones mass conc (U) Negative Invalid Interpretation Code Negative [facility] Work Phone: [phone] NITRITE UR Negative Invalid Interpretation Code Negative [facility] Work Phone: [phone] Nitrite Urine Negative Invalid Interpretation Code Negative [facility] Work Phone: [phone] Occult Blood, urine Negative Invalid Interpretation Code Negative [facility] Work Phone: [phone] OCCULT BLOOD-UR Negative Invalid Interpretation Code Negative [facility] Work Phone: [phone] pH (U) 7.0 [pH] 5.0 - 8.0 [facility] Work Phone: [phone] specific gravity, urine 1.010 Invalid Interpretation Code 1.002-1.03 0 [facility] Work Phone: [phone] Urine, bilirubin presence Negative Invalid Interpretation Code Negative [facility] Work Phone: [phone] Urine, clarity Clear Invalid Interpretation Code Clear [facility] Work Phone: [phone] Urine, color Yellow Invalid Interpretation Code Yellow [facility] Work Phone: [phone] Urine, glucose presence Normal mg/dl Invalid Interpretation Code Normal [facility] Work Phone: [phone] Urine, ketones presence Negative Invalid Interpretation Code Negative [facility] Work Phone: [phone] Urine, leukocyte esterase presence Negative Invalid Interpretation Code Negative [facility] Work Phone: [phone] Urine, pH 7.0 [pH] Invalid Interpretation Code 5.0 - 8.0 [facility] Work Phone: [phone] Urine, protein Negative Invalid Interpretation Code Negative [facility] Work Phone: [phone] UROBILI Normal mg/dl Invalid Interpretation Code Normal [facility] Work Phone: [phone] urobilinogen, urine, by dipstick Normal mg/dl Invalid Interpretation Code Normal [facility] Work Phone: [phone] 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 Ginna Kowalski MD Work Phone: [facility] 05-08-2025 17:10-0400 Body temperature 97.9 [degF] Dr. Ginna Kowalski MD Work Phone: [facility] 05-08-2025 17:10-0400 Body weight 72.[address] Ginna Kowalski MD Work Phone: [facility] 05-08-2025 17:10-0400 Diastolic blood pressure 77 mm[Hg] Dr. Ginna Kowalski MD Work Phone: [facility] 05-08-2025 17:10-0400 Heart rate 73 /min Dr. Ginna Kowalski MD Work Phone: [facility] 05-08-2025 17:10-0400 Respiratory rate 14 /min Dr. Ginna Kowalski MD Work Phone: [facility] 05-08-2025 17:10-0400 SaO2% (BldA) [Mass fraction] 99 % Dr. Ginna Kowalski MD Work Phone: [facility] 05-08-2025 17:10-0400 Systolic blood pressure 113 mm[Hg] Dr. Ginna Kowalski MD Work Phone: [facility] 05-08-2025 13:25-0400 Body height 167.[address] Ginna Kowalski MD Work Phone: [facility] 03-31-2025 17:09-0400 Body temperature 97.8 [degF] Dr. Ginna Kowalski MD Work Phone: [facility] 03-31-2025 17:09-0400 Diastolic blood pressure 65 mm[Hg] Dr. Ginna Kowalski MD Work Phone: [facility] 03-31-2025 17:09-0400 Heart rate 66 /min Dr. Ginna Kowalski MD Work Phone: [facility] 03-31-2025 17:09-0400 Respiratory rate 12 /min Dr. Ginna Kowalski MD Work Phone: [facility] 03-31-2025 17:09-0400 SaO2% (BldA) [Mass fraction] 98 % Dr. Ginna Kowalski MD Work Phone: [facility] 03-31-2025 17:09-0400 Systolic blood pressure 136 mm[Hg] Dr. Ginna Kowalski MD Work Phone: [facility] 03-31-2025 15:31-0400 Body height 167.[address] Ginna Kowalski MD Work Phone: [facility] 03-31-2025 15:31-0400 Body mass index (BMI) [Ratio] 33.3 kg/m2 Dr. Ginna Kowalski MD Work Phone: [facility] 03-31-2025 15:31-0400 Body weight 93.[address] Ginna Kowalski MD Work Phone: [facility] 02-21-2025 13:00-0400 Body temperature 97.4 [degF] Dr. Ginna Kowalski MD Work Phone: [facility] 02-21-2025 13:00-0400 Diastolic blood pressure 59 mm[Hg] Dr. Ginna Kowalski MD Work Phone: [facility] 02-21-2025 13:00-0400 Heart rate 62 /min Dr. Ginna Kowalski MD Work Phone: [facility] 02-21-2025 13:00-0400 Inhaled oxygen flow rate 4 L/min Dr. Ginna Kowalski MD Work Phone: [facility] 02-21-2025 13:00-0400 Respiratory rate 16 /min Dr. Ginna Kowalski MD Work Phone: [facility] 02-21-2025 13:00-0400 SaO2% (BldA) [Mass fraction] 99 % Dr. Ginna Kowalski MD Work Phone: [facility] 02-21-2025 13:00-0400 Systolic blood pressure 121 mm[Hg] Dr. Ginna Kowalski MD Work Phone: [facility] 02-21-2025 06:53-0400 Body height 167.[address] Ginna Kowalski MD Work Phone: [facility] 02-21-2025 06:53-0400 Body mass index (BMI) [Ratio] 32.7 kg/m2 Dr. Ginna Kowalski MD Work Phone: [facility] 02-21-2025 06:53-0400 Body weight [address] Ginna Kowalski MD Work Phone: [facility] 12-17-2023 20:58-0400 Body temperature 97 [degF] [facility] 12-17-2023 20:58-0400 Diastolic blood pressure 58 mm[Hg] [facility] 12-17-2023 20:58-0400 Heart rate 61 /min [facility] 12-17-2023 20:58-0400 Respiratory rate 16 /min [facility] 12-17-2023 20:58-0400 SaO2% (BldA) [Mass fraction] 94 % [facility] 12-17-2023 20:58-0400 Systolic blood pressure 146 mm[Hg] [facility] 12-17-2023 12:56-0400 Body height 167.64 cm [facility] 12-17-2023 12:56-0400 Body mass index (BMI) [Ratio] 32.4 kg/m2 [facility] 12-17-2023 12:56-0400 Body weight 91.17 kg [facility] 12-16-2023 12:00-0400 Body temperature 97.8 [degF] [facility] 12-16-2023 12:00-0400 Diastolic blood pressure 62 mm[Hg] [facility] 12-16-2023 12:00-0400 Heart rate 55 /min [facility] 12-16-2023 12:00-0400 Respiratory rate 16 /min [facility] 12-16-2023 12:00-0400 SaO2% (BldA) [Mass fraction] 97 % [facility] 12-16-2023 12:00-0400 Systolic blood pressure 154 mm[Hg] [facility] 12-16-2023 11:06-0400 Body mass index (BMI) [Ratio] 34.2 kg/m2 [facility] 12-16-2023 11:06-0400 Body weight 96.1 kg [facility] 12-16-2023 10:28-0400 Body height 167.64 cm [facility] 12-14-2023 12:49-0400 Body height 167.64 cm [facility] 12-14-2023 12:49-0400 Body temperature 98.2 [degF] [facility] 12-14-2023 12:49-0400 Diastolic blood pressure 63 mm[Hg] [facility] 12-14-2023 12:49-0400 Heart rate 69 /min [facility] 12-14-2023 12:49-0400 Respiratory rate 16 /min [facility] 12-14-2023 12:49-0400 SaO2% (BldA) [Mass fraction] 94 % [facility] 12-14-2023 12:49-0400 Systolic blood pressure 122 mm[Hg] [facility] 06-21-2023 19:29-0400 Diastolic blood pressure 70 mm[Hg] [facility] 06-21-2023 19:29-0400 Heart rate 64 /min [facility] 06-21-2023 19:29-0400 Respiratory rate 18 /min [facility] 06-21-2023 19:29-0400 SaO2% (BldA) [Mass fraction] 98 % [facility] 06-21-2023 19:29-0400 Systolic blood pressure 129 mm[Hg] [facility] 06-21-2023 16:10-0400 Body height 167.64 cm [facility] 06-21-2023 16:10-0400 Body mass index (BMI) [Ratio] 31.8 kg/m2 [facility] 06-21-2023 16:10-0400 Body temperature 97.3 [degF] [facility] 06-21-2023 16:10-0400 Body weight 89.4 kg [facility] 01-13-2016 07:51-0400 BMI (Body Mass Index) 25.82 kg/m2 [facility] Work Phone: 01-13-2016 07:51-0400 Body Temperature 98.1 [degF] [facility] Work Phone: 01-13-2016 07:51-0400 BP Diastolic 72 mm[Hg] [facility] Work Phone: 01-13-2016 07:51-0400 BP Systolic 128 mm[Hg] [facility] Work Phone: 01-13-2016 07:51-0400 BSA (Body Surface Area) 1.82 m2 [facility] Work Phone: 01-13-2016 07:51-0400 Pulse (Heart Rate) 65 /min [facility] Work Phone: 01-13-2016 07:51-0400 Pulse Oximetry 98 % [facility] Work Phone: 01-13-2016 07:51-0400 Respiratory Rate 16 /min [facility] Work Phone: 01-13-2016 07:51-0400 Weight 72.58 kg Marysol Juarez [facility] Work Phone: 05-01-2014 14:35-0400 Height 167.64 cm Marysol Juarez [facility] Work Phone: Encounters Encounter Date Encounter Type Care Provider Facility Start: 06-23-2025 ambulatory Markel Leyav Facility: [facility] Start: 05-08-2025 ambulatory Panda Ricks Facility:[facility] Start: 05-08-2025 End: 05-08-2025 Emergency department patient visit Dr. Ginna Kowalski MD Work Phone: -Emergency Department Work Phone: Start: 03-31-2025 End: 03-31-2025 Emergency department patient visit Dr. Ginna Kowalski MD Work Phone: -Emergency Department Work Phone: Start: 03-13-2025 Non-patient / Non-visit Emmie Tobin ch BROACH OPERATOR-C -[facility] Work Phone: Start: 03-13-2025 ambulatory Emmie Ramirez BROACH OPERATOR Facil ity:[facility] Start: 02-21-2025 End: 02-21-2025 Admission to same day surgery center Dr. Markel Leyva DPM -[facility] Start: 02-21-2025 End: 02-21-[address] Ginna Kowalski MD Work Phone: [facility] Work Phone: Start: 02-11-2025 Encounter for genera l adult medical examination without abnormal findings Saul Vaca [facility] Start: 02-10-2025 Encounter for other preprocedural examination Ginna Kowalski [facility] Start: 02-07-2025 End: 02-07-[address] Ginna Kowalski MD Work Phone: [facility] Work Phone: Start: 02-07-2025 End: 02-07-[address] Saul Vaca MD -Laboratory Work Phone: Start: 02-07-2025 End: 02-07-2025 ambulatory [facility] Facility:[facility] Start: 01-18-2025 End: 01-18-[address] Ginna Kowalski MD Work Phone: [facility] Work Phone: Start: 01-18-2025 End: 01-18-[address] Ginna Kowalski MD -Laboratory,[facility] Work Phone: Start: 01-18-2025 End: 01-18-2025 ambulatory [facility] Facility:[facility] Start: 12-23-2024 Non-patient / Non-visit [facility] Start: 12-23-2024 End: 12-23-[address] Ginna Kowalski MD Work Phone: [facility] Work Phone: Start: 12-23-2024 End: 12-23-[address] Ginna Kowalski MD -Cardiovascular Services Work Phone: Start: 12-23-2024 End: 12-23-2024 ambulatory [facility] Facility:[facility] Start: 12-19-2024 End: 12-19-[address] Ginna Kowalski MD Work Phone: [facility] Work Phone: Start: 12-19-2024 End: 12-19-[address] Markel Leyva DPM -[facility] Work Phone: Start: 12-19-2024 End: 12-19-2024 ambulatory Markel Leyva Facility:[facility] Start: 07-22-2024 End: 07-22-2024 [facility] Start: 07-01-2024 ambulatory Leidy Crawford Facility:[facility] Start: 12-17-2023 End: 12-17-2023 Emergency department patient visit [facility]-Emergency Department Work Phone: Start: 12-16-2023 End: 12-16-2023 Emergency department patient visit [facility]-Emergency Department Work Phone: Start: 12-14-2023 End: 12-14-2023 Emergency department patient visit [facility]-Emergency Department Work Phone: Start: 06-21-2023 End: 06-21-2023 Emergency department patient visit [facility]-Emergency Department Work Phone: Start: 04-26-2022 End: 04-26-[address] Leidy Crawford Work Phone: [facility]-Radiology, [facility] Start: 04-21-2022 End: 04-21-[address] Leidy Crawford Work Phone: [facility] Start: 12-21-2018 End: 12-21-2018 Patient encounter procedure SHAYY ELIZABETH Facility:[facility] Procedures Date Procedure Procedure Detail Performing Clinician [...] Work Phone: Comment on above: Test Ordered: [id number] 25-Hydroxyvitamin D LCMS D2+S037-Luezshs, Vitamin D 16 [L ] ng/mL ES Reference Range: .Reference Range:All Ages: Target levels 30 - 26253-Eucswor, Vitamin D-2 <1.0 ng/mL ES Reference Range: .This test was developed and its performance characteristicsdetermined by [employer] It has not been cleared or approvedby the Food and Drug Administration.25-Hydroxy, Vitamin D-3 15 ng/mL ES Reference Range: .This test was developed and its performance characteristicsdetermined by [employer] It has not been cleared or approvedby the Food and Drug Administration.Performed at: - [facility] [address] [place] [address] [id number] Director: Cristino Singleton MD, Phone: [phone] at: [address] [id number] Director: Miguel Benton PhD, Phone: [phone] Start: 01-18-[address] Ginna Kowalski MD Work Phone: Comment on above: This test was developed and its performa nce characteristicsdetermined by [employer] It has not been cleared orapproved by the Food and Drug Administration.Cotinine levels greater than 20.0 are consistent with theuse of tobacco or tobacco cessation products.Performed at: [facility] [employer] [id number] Director: Natacha Hays MD, Phone: [phone] Start: 12-19-2024 MRI of joint of lower [...] Treatment Date Care Activity Detail Author Start: 05-08-2025 End: 05-08-2025 [facility] Start: 05-08-2025 Foot min 3 Views Foot min 3 Views [facility] Start: 05-08-2025 US.doppler Lower extremity vein [facility] Start: 05-08-2025 XR Foot GE 3 Views [facility] Start: 03-31-2025 [facility] Start: 02-21-2025 Anes open proc bones lower leg/ankle/foot nos ANESTH LOWER LEG BONE SURG [facility] Start: 02-21-2025 Diagnostic bone marrow aspirations DX BONE MARROW ASPIRATIONS [facility] Start: 02-21-2025 Endoscopic plantar fasciotomy SCOPE PLANTAR FASCIOTOMY [facility] Start: 02-21-2025 Injection aa&/strd femoral nerve NJX AA&/STRD FEMORAL NRV IMG [facility] Start: 02-21-2025 Injection aa&/strd other peripheral nerve/branch NJX AA&/STRD OTHER PN/BRANCH [facility] Start: 02-21-2025 Ostectomy tarsal coalition REVISION OF FOOT [facility] Start: 02-21-2025 Osteot w/wo lngth shrt/corrj 1st metar INCISION OF METATARSAL [facility] Start: 02-21-2025 Osteotomy calcaneus w/wo internal fixation INCISION OF HEEL BONE [facility] Start: 02-21-2025 Tr/trnspl 1 tdn w/musc redirion/rerouting supfc REVISE LOWER LEG TENDON [facility] Start: 02-21-2025 Patient discharge [facility] Start: 01-18-2025 Procedure [facility] Start: 01-18-2025 Nicotine measurement [facility] Start: 12-17-2023 [facility] Start: 12-16-2023 [facility] Start: 12-14-2023 [facility] Start: 06-21-2023 [facility] Start: 07-20-2017 End: 07-20-2017 Appointment Appointment [...] Medicine and Orthopaedics Work Phone: Cotinine measurement [facility] Nicotine [Mass/volum e] in Serum or Plasma [facility] Patient Education [facility] Work Phone: Patient referral [facility] Work Phone: Immunizations Immunization Date Immunization Notes Care Provider [facility] 07-11-2024 influenza, seasonal, injectable, preservative free Dr. Ginna Kowalski MD Work Phone: [facility] 07-27-2023 influenza, injectabl e, quadrivalent, preservative free [facility] 06-29-2022 influenza, injectabl e, quadrivalent, preservative free [facility] 10-12-2020 Covid (Moderna) Dr. Leidy bland Work Phone: [facility] 09-14-2020 Covid (Moderna) Dr. Leidy bland Work Phone: [facility] 06-29-2020 influenza, injectabl e, quadrivalent, preservative free [facility] 06-29-2020 influenza, seasonal, injectable Dr. Leidy Crawford Work Phone: [facility] Work Phone: 06-20-2019 influenza, injectabl e, quadrivalent, preservative free [facility] 06-20-2019 influenza, seasonal, injectable Dr. Leidy Crawford Work Phone: [facility] Work Phone: 06-08-[address] Leidy Crawford Work Phone: [facility] 06-08-2018 influenza, injectabl e, quadrivalent, preservative free [facility] 06-08-2018 influenza, seasonal, injectable Dr. Leidy Crawford Work Phone: [facility] Work Phone: 06-07-2017 influenza, injectabl e, quadrivalent, preservative free [facility] 06-07-2017 influenza, seasonal, injectable Dr. Leidy Crawford Work Phone: [facility] Work Phone: 06-09-2016 influenza, injectabl e, quadrivalent, preservative free [facility] 06-09-2016 influenza, seasonal, injectable Dr. Leidy Crawford Work Phone: [facility] Work Phone: 06-15-2015 influenza, injectabl e, quadrivalent, preservative free [facility] 06-15-2015 influenza, seasonal, injectable Dr. Leidy Crawford Work Phone: [facility] Work Phone: 06-11-2014 influenza, injectabl e, quadrivalent, preservative free [facility] 06-11-2014 influenza, seasonal, injectable Dr. Leidy Crawford Work Phone: [facility] Work Phone: 10-03-2013 tetanus toxoid, redu artemio diphtheria toxoid, and acellular pertussis vaccine, adsorbed Dr. Leidy Crawford Work Phone: [facility] Payers Date Payer Category Payer Unknown [id number] 2024 Self-pay [id number] 2016 Unknown [id number] 1965 Unknown [id number] 2.16.8 [id number] Self-pay [id number] Unknown [id number] 2.16.8 [id number] Unknown [id number] 2.16.8 [id number] Unknown [id number] 2.16.8 [id number] Unknown [id number] 2.16.8 [id number] Unknown [id number] 2.16.8 [id number] Unknown [id number] 2.16.8 [id number] Unknown [id number] 2.16.8 [id number] Unknown [id number] 2.16.8 [id number] Unknown [id number] 2.16.8 [id number] Unknown [id number] 2.16.8 [id number] Unknown [id number] 2.16.8 [id number] Unknown [id number] 2.16.8 [id number] Unknown [id number] 2.16.8 [id number] Social History Date Type Detail Facility Start: 02-29-2020 End: 12-17-2023 Tobacco smoking status NHIS Unknown if ever smoked [facility] Start: 07-19-[address] [facility] Start: 07-19-[address] [facility] Start: 07-19-[address] [facility] Start: 07-19-[address] [facility] Start: 1965 Sex Assigned At Female [facility] Start: 12-17-2023 End: 05-08-2025 Tobacco smoking status NHIS Smokes tobacco daily (finding) [facility] Start: 12-23-2024 End: 12-26-2024 Sex Female (finding) [facility] Not [facility] NEGATED: Highlighted row Not [facility] Medical Equipment Procedure Code Equipment Code [...] Fusion, talonavicular joint Orthopaedic bone screw (non-sliding) ()[id number] FDA Start: 02-21-2025 Fusion, talonavicular joint Orthopaedic bone screw (non-sliding) ()[id number] FDA Start: 02-21-2025 Fusion, talonavicular joint 2.7mm non-locking screws, T8 FDA Start: 02-21-2025 Fusion, talonavicular joint BB TRAUMA FDA Start: 02-21-2025 Fusion, talonavicular joint HEADLESS COMPRESSION SCREW 5.0mm FDA Start: 02-21-2025 Fusion, talonavicular joint PLATE, SLIM Y FDA Start: 02-21-2025 Fusion, talonavicular joint VIAFLOW, 1CC FDA Start: 02-21-2025 Fusion, talonavicular joint VIAFLOW, 1CC FDA Start: 02-21-2025 Fusion, 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 Work Phone: 02-21-2025 Cognitive function Patient Kvng morocho Person;Place;Time [facility] Work Phone: Clinical Notes 12-17-2023 to 05-08-2025 Note Date & Type Note Facility 05-08-2025 Radiology Diagnostic study note [facility] Imaging Services [address] [address] Foot min 3 Views MR#: [id number] Acct: [id number] Name: DARWIN PORTILLO Rep #: [id number] : 1965 F 60 From: Chris Nobles MD PCP: Dr. Ginna Kowalski MD Status: REG ER Study:Foot min 3 Views Date of Exam: Exam# [id number] Ordering Dr: Karen Gonzales DO PROCEDURE: FOOT MIN 3 VIEWS 05/08/2025 REASON FOR EXAM: INJURY/PAIN TECHNIQUE: FOOT MIN 3 VIEWS Laterality: Left foot COMPARISON: Prior study dated FINDINGS: The patient is status post fusion at the 1st tarsometatarsal joint. Status postscrew fixation of the calcaneus. Degenerative changes of the 1st metatarsophalangeal joint. Generalized osteopenia. Soft tissue swelling. RAD/Foot min 3 Views IMPRESSION: Generalized osteopenia. Status post screw fixation of the calcaneus as well as fusion at the 1st tarsometatarsal joint. Reading Location: [id number] CC: Dr. Melissa Gonzales DO; Dr. Ginna Kowalski MD ~ Staff Assistant: Signed [facility] 03-31-2025 Discharge summary [facility] 03-31-2025 Discharge summary Note Date/Time March 31, 2025 4:32pm [facility] Medical Records Department [address] [place] [address] Emergency Department Summary 03/31/25 MR#: [id number] Acct: [id number] Name: DARWIN PORTILLO Rep #:[id number] : 1965 60 From: Per Marrero MD [...] discharged home with outpatient follow-up with her floor surfacer for her left foot. Continue on her [...] % (Auto) 55.3 Lymph % (Auto) 35.6 [place] % (Auto) 6.9 Eos % (Auto) 1.1 [...] (50,000 unit) capsule 1,250 mcg PO QWEEK gcxwregimv-tisbryidbg-utv-cod [id number] mg capsule 1 cap PO Q4H PRN [...] MD [Primary Care Provider] - Print Language: Portuguese What to do if you have Problems For any increased pain, shortness of breath, bleeding, nausea or vomiting, chestpain, or any unexpected problems, contact your Primary Care Provider. Call [facility] ([phone]) or report to the closest Emergency Room. Call 911 if necessary. 03/31/25 1632 <Electronically signed by Per Marrero MD> Cosigner Signature (if applicable): CC: Dr. Ginna Kowalski MD ~ Signed [facility] Work Phone: 1(595) 614-547606-13-2025 Consult note [facility] Medical Records Department [address] [place] [id number] Anesthesia Postop Eval I 02/21/25 1238 MR#: [id number] Acct: [id number] Name: DARWIN PORTILLO Rep #:[id number] : 1965 60 From: Sheree cheatham CRNA PCP: Dr. Ginna Kowalski MD Status:[place] [facility] [place] C Location: [place] [address] Anesthesia: Postop Eval I Current Vital Signs [...] Postop Eval 1 completed: Yes 02/21/25 1238 nski DIAGNOSTIC MEDICAL SONOGRAPHER> Date _ Sheree Simpson DIAGNOSTIC MEDICAL SONOGRAPHER Cosigner Signature: Date CC: ~ Signed [facility]06-13-2025 Consult note [facility] Medical Records Department [address] [place] [address] Anesthesia Postop Eval II 02/21/25 1255 MR#: [id number] Acct: [id number] Name: DARWIN PORTILLO Rep #:[id number] : 1965 60 From: Edgardo Toth MD PCP: Dr. Ginna Kowalski MD Status:REG [facility] Race: C Location: [place] [address] Anesthesia Postop Eval I Sum Postop Eval Completion status Anesthesia document: Postop Eval 1 completed: Yes Anesthesia Postop Eval I Summary Anesthesia Postop Eval I Summary: Anesthesia Postop Eval I: Assessment Summary Airway patent Yes 02/21/25 12:38 DIAGNOSTIC MEDICAL SONOGRAPHER.SKOBY Spontaneous unlabored Yes 02/21/25 12:38 DIAGNOSTIC MEDICAL SONOGRAPHER.HENRRYOBClifton respirations Mental status Awake,Calm 02/21/25 12:38 DIAGNOSTIC MEDICAL SONOGRAPHER.SKOBY nausea No 02/21/25 12:38 DIAGNOSTIC MEDICAL SONOGRAPHER.SKOBY Vomiting No 02/21/25 12:38 DIAGNOSTIC MEDICAL SONOGRAPHER.SKOBY Anesthesia Postop Eval I: Fluid Summary Crystalloid volume administer 1,200 02/21/25 12:38 DIAGNOSTIC MEDICAL SONOGRAPHER.SKOBY (ml) Colloids volume administered ( ml) Blood Product volume administered (ml) Total IV fluid infused 1,200 02/21/25 12:38 DIAGNOSTIC MEDICAL SONOGRAPHER.SKOBY Anesthesia Postop Eval I: Summary Notes Anesthesia Complication No 02/21/25 12:38 DIAGNOSTIC MEDICAL SONOGRAPHER.SKOBY Anesthesia Complication Comment: Post-operative progress note Anesthesia: Postop Eval II Evaluation Mental status: Awake Pain Level: 2 nausea: No Vomiting: No 02/21/25 1255 > Date _ Edgardo Mcmanusignvivien Signature: Date CC: ~ Signed [facility]06-13-2025 Radiology Diagnostic study note [facility] Imaging Services [address] [place] [address] Foot min 3 Views MR#: [id number] Acct: [id number] Name: DARWIN PORTILLO Rep #: [id number] : 1965 F 60 From: Katarina Taveras MD PCP: Dr. Ginna Kowalski MD Status: [facility] Study:Foot min 3 Views Date of Exam: Exam# [id number] Ordering Dr: Alvarado Leyva DPM EXAM: XR [...] to operative notefor further details. Reading Location: [facility] CC: JOSE ALBERTO Leyva; Dr. Ginna Kowalski MD ~ Staff Assistant: Signed [facility]06-13-2025 Consult note Author Edgardo Toth [facility] Note Date/Time February 21, 2025 6:44 am [facility] Medical Records Department [address] [place] [address] Pre-Anesthesia Evaluation 02/21/25 0643 MR#: [id number] Acct: [id number] Name: DARWIN PORTILLO Rep #:[id number] : 1965 60 From: Edgardo Toth MD PCP: Dr. Ginna Kowalski MD Status:[place] [facility] [place]: C Location: [place] [address] ASA Classification* ASA Classification ASA Classification: 2 [...] LIGAMENT REPAIR Anesthesia History Anesthesia History - clinical data assistant: Anesthesia History - clinical data assistant Hx Hospitalization No 02/07/25 09:20 Any Problems [...] take am of surgery PONV PONV - clinical data assistant: PONV - clinical data assistant Female Yes 02/07/25 09:20 HX of Motion [...] 02/20/25 08:50 Respiratory Assessment Respiratory Assessment - clinical data assistant: Respiratory Tract Infection Hx - clinical data assistant Hx Respiratory Tract Infection No 02/07/25 09:20 STOP Sleep Apnea STOP Sleep Apnea - clinical data assistant: STOP Sleep Apnea - clinical data assistant Hx Hypertension No: HYPOTENSION 02/07/25 09:20 Hx [...] Tobacco Use History Tobacco Use History - clinical data assistant: Tobacco Use History - clinical data assistant Tobacco Use Cigarettes 07/19/21 08:09 Smoking Status Current every day smoker 02/07/25 09:20 Hx Tobacco Use Yes 02/07/25 09:20 Years Smoking Packs Smoked per Day Smoking Cessation Date was within the last 15 years Hx Smoking Cessation Date Hx Smoking Cessation Counseling Hematologic Medial History Hematologic Hx - clinical data assistant: 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 Hx of Blood Transfusion No 02/07/25 09:20 [...] confused, unrespo /Reproduction History /Reproductive History - clinical data assistant: /Reproductive Hx- clinical data assistant Hx Now No 02/07/25 09:20 Gestational Age [...] MD Cosigner Signature: Date CC: ~ Signed [facility] Work Phone: 1(179) 879-915706-13-2025 Evaluation note* Diagnosis Onset Date Resolution Status Admit Date Cavus deformity of left foot acute February 21, 2025 5:46am Other specified congenital deformities of feet acute February 21, 2 025 5:46am Pain in left foot acute February 212024 5:46am Primary osteoarthritis, left ankle and foot acute February 21, 2025 5:46am [facility] Work Phone: 1(539) 132-400906-13-2025 Consult note [facility] Medical Records Department [address] [address] Pre-Anesthesia Evaluation 02/21/25 0643 MR#: [id number] Acct: [id number] Name: DARWIN PORTILLO Rep #:[id number] : 1965 60 From: Edgardo Toth MD PCP: Dr. Ginna Kowalski MD Status:[place] [facility] [place] C Location: [place] [address] ASA Classification* ASA Classification ASA Classification: 2 [...] LIGAMENT REPAIR Anesthesia History Anesthesia History - clinical data assistant: Anesthesia History - clinical data assistant Hx Hospitalization No 02/07/25 09:20 Any Problems [...] take am of surgery PONV PONV - clinical data assistant: PONV - clinical data assistant Female Yes 02/07/25 09:20 HX of Motion [...] 02/20/25 08:50 Respiratory Assessment Respiratory Assessment - clinical data assistant: Respiratory Tract Infection Hx - clinical data assistant Hx Respiratory Tract Infection No 02/07/25 09:20 STOP Sleep Apnea STOP Sleep Apnea - clinical data assistant: STOP Sleep Apnea - clinical data assistant Hx Hypertension No: HYPOTENSION 02/07/25 09:20 Hx [...] Tobacco Use History Tobacco Use History - clinical data assistant: Tobacco Use History - clinical data assistant Tobacco Use Cigarettes 07/19/21 08:09 Smoking Status Current every day smoker 02/07/25 09:20 Hx Tobacco Use Yes 02/07/25 09:20 Years Smoking Packs Smoked per Day Smoking Cessation Date was within the last 15 years Hx Smoking Cessation Date Hx Smoking Cessation Counseling Hematologic Medial History Hematologic Hx - clinical data assistant: 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 Hx of Blood Transfusion No 02/07/25 09:20 [...] confused, unrespo /Reproduction History /Reproductive History - clinical data assistant: /Reproductive Hx- clinical data assistant Hx Now No 02/07/25 09:20 Gestational Age [...] MD Cosigner Signature: Date CC: ~ Signed [facility]04-07-2024 Discharge summary Author Per Marrero [facility] December 17, 2023 8:54pm Note Date/Time December 17, 2023 1:39 pm [facility] Medical Records Department [address] [place] [address] Emergency Department Summary 12/17/23 MR#: [id number] Acct: [id number] Name: DARWIN PORTILLO Rep #:[id number] : 1965 58 From: Per Marrero MD PCP: Dr. Leidy Crawford DO Status:REG ER Location: ED HPI History [...] your Primary Care Provider. Call [facility] ([phone]) or report to the closest Emergency Room. Call 911 if necessary. 12/17/232053 <Electronically signed by Per Marrero MD> Cosigner Signature (if applicable): CC: Dr. Leidy Crawford DO ~ Signed [facility] Work Phone: Consult note Author Sheree Simpson [facility] Note Date/Time February 21, 2025 1:38 pm [facility] Medical Records Department [address] [place] [address] Anesthesia Postop Eval I 02/21/25 1238 MR#: [id number] Acct: [id number] Name: DARWIN PORTILLO Rep #:[id number] : 1965 60 From: Sheree cheatham DIAGNOSTIC MEDICAL SONOGRAPHER PCP: Dr. Ginna Kowalski MD Status:REG SD Y Race: C Location: [place] [address] Anesthesia: Postop Eval I Current Vital Signs [...] CRNA Cosigner Signature: Date CC: ~ Signed [facility] Work Phone: Consult note Author Edgardo Toth [facility] Note Date/Time February 21, 2025 1:38 pm [facility] Medical Records Department [address] [address] Anesthesia Postop Eval II 02/21/25 1255 MR#: [id number] Acct: [id number] Name: DARWIN PORTILLO Rep #:[id number] : 1965 60 From: Edgardo Toth MD PCP: Dr. Gnina Kowalski MD Status:REG SDC Y Race: C Location: [place] [id number] Anesthesia Postop Eval I Sum Postop Eval Completion status Anesthesia document: Postop Eval 1 completed: Yes Anesthesia Postop Eval I Summary Anesthesia Postop Eval I Summary: Anesthesia Postop Eval I: Assessment Summary Airway patent Yes 02/21/25 12:38 DIAGNOSTIC MEDICAL SONOGRAPHER.SKOBY Spontaneous unlabored Yes 02/21/25 12:38 DIAGNOSTIC MEDICAL SONOGRAPHER.SKOBY respirations Mental status Awake,Calm 02/21/25 12:38 DIAGNOSTIC MEDICAL SONOGRAPHER.SKOBY nausea No 02/21/25 12:38 DIAGNOSTIC MEDICAL SONOGRAPHER.SKOBY Vomiting No 02/21/25 12:38 DIAGNOSTIC MEDICAL SONOGRAPHER.SKOBY Anesthesia Postop Eval I: Fluid Summary Crystalloid volume administer 1,200 02/21/25 12:38 DIAGNOSTIC MEDICAL SONOGRAPHER.SKOBY (ml) Colloids volume administered ( ml) Blood Product volume administered (ml) Total IV fluid infused 1,200 02/21/25 12:38 DIAGNOSTIC MEDICAL SONOGRAPHER.SKOBY Anesthesia Postop Eval I: Summary Notes Anesthesia Complication No 02/21/25 12:38 DIAGNOSTIC MEDICAL SONOGRAPHER.SKOBY Anesthesia Complication Comment: Post-operative progress note Anesthesia: Postop Eval II Evaluation Mental status: Awake Pain Level: 2 nausea: No Vomiting: No 02/21/25 1255 <Electronically signed by Edgardo Toth MD > Date _ Edgardo Toth MD Cosigner Signature: Date CC: ~ Signed [facility] Work Phone: Evaluation noteNo assessment information available [facility] Work Phone: Hospital Discharge instructions Additional Instructions Motrin and Tylenol and pain meds as needed for pain. Plenty of fluids and rest. Continue antibiotics orally and/or follow-up for further IV antibiotics. Follow-up with a local dentist to have that tooth pulled.[facility] Work Phone: Hospital Discharge instructions Additional [...] letting me be involved in your surgical care![facility] Work Phone: Hospital Discharge instructionsAdditional Instructions Zofran as needed for nausea. Plenty of fluids and rest. Continue your Protonix. Follow-up with your primary care physician with any further bleeding or return to the emergency department.[facility] Work Phone: Hospital Discharge instructionsAdditional Instructions Please follow-up with Dr. Aguero's office tomorrow for recheck. If you have any issues feel free to call have his personal phone number [phone]. Your workup today was very reassuring with no signs of acute fracture, movement of the hardware or infection in the joint. No signs of a DVT. Rest and elevate the foot for the next few days and go back to using crutches. It might take a couple days of crutch walking or limited weightbearing for discharge and feel better to then advance your walking again.[facility] Work Phone: Reason for referral (narrative)No reason for referral information [facility] Work Phone: Summary Purpose Family History [...] No February 29, 2020 1:05pm Power of Facility Worker No February 28 1:05pm Advance Directive Response Recorded Date/ Time Advance Directives No May 01, 2014 9:39am Living Will No June 21 7:32pm Power of Facility Worker No June 21, 2023 7:32pm Advance Directive Response Recorded Date/ Time Advance Directives No May 01, 2014 9:39am Living Will No December 14, 2023 12:52pm Power of Facility Worker No December 13 12:52pm Advance Directive Response Recorded Date/ Time Advance Directives No May 01, 2014 9:39am Living Will No December 16, 2023 10:43am Power of Facility Worker No December 15 10:43am Advance Directive Response Recorded Date/ Time Advance Directives No May 01, 2014 9:39am Living Will No December 17, 2023 12:59pm Power of Facility Worker No December 16 12:59pm Advance Directive Response Recorded Date/ Time Living Will No December 17, 2023 12:59pm Do you have a Healthcare Power of Facility Worker? No December 17, 2023 12:59pm Advance Directives No May 01, 2014 9:39am Advance Directive Response Recorded Date/ Time Living Will No December 17, 2023 12:59pm Do you have a Healthcare Power of Facility Worker? No December 17, 2023 12:59pm Do you have a Healthcare Power of Facility Worker? No February 07, 2025 9:20am Advance Directives No May 01, 2014 9:39am Advance Directive Response Recorded Date/ Time Living Will No December 17, 2023 12:59pm Do you have a Healthcare Power of Facility Worker? No December 17, 2023 12:59pm Do you have a Healthcare Power of Facility Worker? No February 07, 2025 9:20am Do you have a Healthcare Power of Facility Worker? No March 31, 2025 3:56pm Advance Directives No May 01, 2014 9:39am Advance Directive Response Recorded Date/ Time Do you have a Healthcare Power of Facility Worker? No February 07, 2025 9:20am Do you have a Healthcare Power of Facility Worker? No May 08, 2025 3:37pm Do you have a Healthcare Power of Facility Worker? No March 31, 2025 3:56pm Advance Directives [...] E ORDER February 07, 2025 12:42 pm [place] of bone marrow aspirate Tarah starks February [...] E ORDER February 07, 2025 12:42 pm [place] of bone marrow aspirate [place]ah starks February 21, 2025 5:46am Amb Documentation March 13, 2025 1:07p m NAUSEA/VOMITING March 31, 2025 3:31 pm Chief Complaint Admit Date PRE OP LABS January 18, 2025 2:19p m E ORDER February 07, 2025 12:42 pm [place] of bone marrow aspirate Tarah starks February 21, 2025 5:46am Amb Documentation March 13, 2025 1:07p m NAUSEA/VOMITING March 31, 2025 3:31 pm INCREASED FOOT PAIN May 08, 2025 1: 25pm Additional Source Comments INFORMATION SOURCE (unrecogn ized section and content) DATE CREATED AUTHOR 01/04/2019 [facility] DATE CREATED AUTHOR AUTHOR'S ORGANIZ ATION 01/04/2019 [facility] DATE CREATED AUTHOR AUTHOR'S ORGANIZ ATION 06/24/2025 [facility] Goals (unrecognized section and content) Goals may [...] Active Start: March 13, 2025 Emmie Ramirez BROACH OPERATOR, BROACH OPERATOR-C Attending Provider Active Start: March 13, 2025 Team Status: Inactive Member Role/Relationship Status Dates Dr. Ginna Kowalski MD Primary Care Provider Active Start: March 31, 2025 End: March 31, 2025 Dr. Per Marrero MD Emergency Provider Active S tart: March 31, 2025 End: March 31, 2025 Team Status: Inactive Member Role/Relationship Status [...] Active Start: March 13, 2025 Emmie Ramirez BROACH OPERATOR, BROACH OPERATOR-C Attending Provider Active Start: March 13, 2025 Team Status: Inactive Member Role/Relationship Status Dates Dr. Ginna Kowalski MD Primary Care Provider Active Start: March 31, 2025 End: March 31, 2025 Dr. Per aMrrero MD Attending Provider Active S tart: March 31, 2025 End: March 31, 2025 Dr. Per Marrero MD Emergency Provider Active S tart: March 31, 2025 End: March 31, 2025 Team Status: Inactive Member Role/Relationship Status Dates Dr. Ginna Kowalski MD Primary Care Provider Active Start: May 08, 2025 End: May 08, 2025 Dr. Melissa Gonzales DO Emergency Provider Active Start: May 08, 2025 End: May 08, 2025 FOR RECORDS PERTAINING TO PATIENTS WHO [...] BE BASED ON THE PRIMARY CLINICAL RECORDS. [facility]. provides no warranty or guarantee of the accuracy or completeness of information in this document.
[2025-06-28 09:44] LABS: Vitamin D,25 Hydroxy 30.1 ng/mL (30-100)
== END | disposition home or self-care (01) ==
LOC: LAB.FUTURE 08:02 → EMPH 08:17 → LAB 08:19
PROVIDERS: PCP Family Medicine; Visit Provider Family Medicine
DX: E55.9 Vitamin D deficiency, unspecified (principal)
CPT/HCPCS: 82306

== ENCOUNTER → 2025-08-08 | Outpatient (CLI) | payer OTHER, SELFPAY ==
--- NOTE | 2025-08-08 12:09 | BI_ITS ---
EXAM: SCRN MAMM (CAD)W/JASON BILAT DATE: 08/08/2025 CLINICAL HISTORY: F, Age 60 y/o , SCREENING TECHNIQUE: Procedure Code: BISMWCADBTOM Modality: MG Procedure: SCRN MAMM (CAD)W/JASON BILAT COMPARISON: Prior exam(s) dated 09/16/2014 and 01/12/2012. FINDINGS: TISSUE DENSITY: There are scattered areas of fibroglandular density. Bilateral Breast Mammographic Findings: There are no suspicious masses, suspicious clustered microcalcifications, architectural distortion or secondary signs of malignancy identified in either breast. Benign-appearing round microcalcifications are seen in both breasts. BI/SCRN MAMM (CAD)W/JASON BILAT IMPRESSION: Benign screening mammogram OVERALL FINAL ASSESSMENT BI-RADS 2: BENIGN RECOMMENDATION: Routine annual follow-up in 1 Year Additional Recommendation none A letter with findings and recommendations will be mailed to the patient. Reading Location: [id number]
--- OUTSIDE RECORDS SUMMARY | 2025-08-08 12:19 | XMS RPT_ITS | CCD ---
Author Organization [facility] Care Team Providers Care Equity Manager Name Role Phone Marysol Juarez Unavailable [...] Unavailable Dr. Leidy Crawford Primary Care Provider [phone] Dr. Leidy Crawford Referring Provider [phone] Aviva ZUÑIGA, YOGESH Priest Attending Provider [phone] Dex VAZQUEZ, Dr. Chacko Primary Care Provider Gordon DPM, Dr. Jean Baptiste Attending Provider Gordon DPM, Dr. Jean Baptiste Referring Provider Dex VAZQUEZ, Dr. Chacko Attending Provider Dex VAZQUEZ, Dr. Chacko Referring Provider Marian VAZQUEZ, Dr. Humphrey Attending Provider Nola VAZQUEZ, Dr. Hughes Attending Provider Nola VAZQUEZ, Dr. Hughes Referring Provider James FREIGHT FORWARDER-C, Emmie Attending Provider Janes VAZQUEZ, Dr. Albarado Emergency Provider Dex VAZQUEZ, Dr. Chacko Primary Care Provider Dex VAZQUEZ, Dr. Chacko Attending Provider Gordon DPM, Dr. Jean Baptiste Attending Provider Dr. Per Marrero MD Attending Provider Christian SALAZAR, Dr. Torres Emergency Provider [phone] Markel Leyva Attending Unavailable Markel Leyva Referring Unavailable Miedel, Ginna Primary Care Unavailable Miedel, Ginna Attending Unavailable Miedel, Ginna Primary Care Unavailable Miedel, Ginna Attending Unavailable Miedel, Ginna Primary Care Unavailable Panda Ricks Attending Unavailable Melissa Gonzales Referring Unavailable Miedel, Ginna Primary Care Unavailable Miedel, Ginna Primary Care Unavailable Kam Fonseca Attending Unavailable James FREIGHT FORWARDER, Emmie Attending Unavailable Miedel, Ginna Primary Care Unavailable Miedel, Ginna Primary Care Unavailable Markel Leyva Attending Unavailable Markel Leyva Referring Unavailable Per Marrero Attending Unavailable Miedel, Ginna Primary Care Unavailable Melissa Gonzales Attending Unavailable Miedel, Ginna Primary Care Unavailable Miedel, Ginna Primary Care Unavailable Miedel, Ginna Attending Unavailable Miedel, Ginna Referring Unavailable Miedel, Ginna Primary Care Unavailable Markel Leyva Attending Unavailable Tnserena Ginna Primary Care Unavailable Ginna Kowalski Attending Unavailable Tnserena Ginna Primary Care Unavailable Ginna Kowalski Attending Unavailable Dex Ginna Referring Unavailable Saul Vaca Attending Unavailable Saul Vaca Referring Unavailable Ednafederica, Ginna Primary Care Unavailable Ginna Kowalski Attending Unavailable Dex Ginna Referring Unavailable Ednaed, Ginna Primary Care Unavailable Allergies Allergy Classification Reported Allergen(s) Allergy Type Date of Onset Reaction(s) Facility (20 sources) acetaminophen / oxyCODONE drug allergy 4 [facility] Work Phone: (20 sources) QUEtiapine drug allergy 6 throat and facial swelling [facility] Work Phone: (2 sources) Acetaminophen / HYDROcodone; Translations: [HYDROCODONE-ACET AMINOPHEN] Drug Allergy 2 [facility] Repository (2 sources) Acetaminophen / oxyCODONE; Translations: [OXYCODONE-ACETAM INOPHEN] Drug Allergy 8 [facility] Repository (12 sources) dilTIAZem Drug Allergy 0 Leg swelling [facility] (12 sources) gabapentin Drug Allergy 0 Edema [facility] (6 sources) oxyCODONE; Translations: [oxycodone HCl] Drug Allergy 0 Anaphylaxis [facility] (1 source) dilTIAZem Drug Allergy 5 [facility] Repository (1 source) gabapentin Drug Allergy 5 [facility] Repository Medications Current Medications Medication Drug Class(es) [...] System Stimulant, Methylxanthine Start: 02-07-2025 Butalbital-Acetami nop-Caf-Cod [id number] mg capsule Active 1 NMA PO Q4H as needed for pain February 07, 2025 12:00am Start: 01-13-2016 FIORICET/CODEI NE [id number] MG CAPS 1 tablet by mouth as needed for migraines OGXNIBZFOY-SEBP-ZXFF-COD [id number] Ana Laura SUTTONC Start: 01-13-2016 FIORICET/CODEI NE 27-931-09-30 MG CAPS 1 tablet by mouth as needed for migraines RSYNNNRWNK-OPFC-EBRE-COD [id number] Ana Laura Salamanca PA-C ascorbic acid 1000 mg oral tablet (3 [...] capsule Active 100 mg PO DAILY 15 May 08, 2025 12:00am Take 1 pill daily for 3 days and then increase to twice a day for 3 days and ultimately can increase to 3 times a day as needed for pain. Start: 01-13-2016 take 1 tablet by pipo th once daily HORIZANT 600 MG CR-TABS 1 tablet by mouth daily GABAPENTIN ENACARBIL [id number] Ana Laura Salamanca PA-C Start: 01-13-2016 take 1 tablet by pipo th once daily HORIZANT 600 MG CR-TABS 1 tablet by mouth daily GABAPENTIN ENACARBIL [id number] Ana Laura Salamanca PA-C ibuprofen 200 mg [...] as needed for nausea and vomiting 14 1 March 31, 2025 12:00am Start: 02-07-2025 take 2 tablets by mo [facility] every eight hours as needed for [...] 5 mg PO Q12H 14 7 0 [place] 8[facility], 2025 [place] 28th, 2025 1:40pm Left foot pain Pain in left foot pain Start: 04-10-2025 take 1 tablet by pipo th every eight hours Oxycodone 5 mg tablet [...] 1 tablet by mouth daily PANTOPRAZOLE SODIUM [id number] Ana Laura SUTTON Start: 01-13-2016 take 1 tablet by pipo th once daily PROTONIX 40 MG PACK 1 tablet by mouth daily PANTOPRAZOLE SODIUM [id number] Ana Laura Jean SUTTON Start: 05-01-2014 End: 01-13-2016 PROTONIX 20 MG TBEC twice da manpreet PANTOPRAZOLE SODIUM [id number] Marysol Juarez promethazine hydrochloride 25 mg oral tablet (11 sources) Phenothiazine Start: 06-21-2023 take 1 tablet by mouth every six hours as needed for nausea and vomiting Promethazine 25 mg tablet Active 25 mg PO EVERY 6 HOURS as needed for nausea and vomiting June 21, 2023 12:00am 0.5 ml SUMAtriptan 12 mg/ml auto-injector (20 sources) Serotonin-1b and Serotonin-1d Receptor Agonist Start: 06-21-2023 Sumatriptan Succinate 6 mg/0.5 mL pen injector Active 6 mg SC ONE TIME as needed for migraine headache 1 June 21, 2023 7:36pm Start: 01-13-2016 IMITREX 6 MG/0 .5ML SOLN 1 injection as needed for migraines SUMATRIPTAN SUCCINATE [id number] Ana Laura Salamanca PA-C Start: 01-13-2016 IMITREX 6 MG/0 .5ML SOLN 1 injection as needed for migraines SUMATRIPTAN SUCCINATE [id number] Ana Laura Salamanca PA-C Completed/Discontinued Medications Medication [...] AERS 2 puffs twice daily ALBUTEROL SULFATE [id number] Ana Laura Salamanca PA-C Start: 01-13-2016 PROAIR HFA 108 (90 Base) MCG/ACT AERS 2 puffs twice daily ALBUTEROL SULFATE [id number] Ana Laura Salamanca PA-C Start: 05-01-2014 Albuterol [...] tablet Discontinued 875 mg PO Q12H 20 0 December 16, 2023 12:00am February 07, 2025 [...] mg tablet Discontinued 20 mg PO DAILY 30 June 15, 2018 12:00am February 07, 2025 9:17am BUDESONIDE-FORMOTERO L FUMARATE AERO (20 sources) Corticosteroid, beta2-Adrenergic Agonist Start: 05-01-2014 SYMBICORT AERO 1 puff twice daily BUDESONIDE-FORMOTER OL FUMARATE AERO [id number] Marysol Juarez Start: 05-01-2014 End: 01-13-2016 SYMBICORT AERO 1 puff twice daily BUDESONIDE-FORMOTEROL FUMARATE AERO [id number] Ana Laura Salamanca PA-C Start: 05-01-2014 SYMBICORT AERO 1 puff twice daily BUDESONIDE-FORMOTEROL FUMARATE AERO [id number] Marysol Juarez Start: 05-01-2014 End: 01-13-2016 SYMBICORT AERO 1 puff twice daily BUDESONIDE-FORMOTEROL FUMARATE AERO 54947851585 Ana Laura SUTTONC celecoxib 200 mg oral capsule (20 sources) Nonsteroidal Anti-inflammatory Drug Start: 05-01-2014 End: 01-13-2016 take 1 capsule by mouth once daily CELEBREX 200 MG CAPS 1 capsule by mouth daily CELECOXIB [id number] Ana Laura ZUÑIGA-C citalopram 10 mg oral tablet (20 sources) Serotonin Reuptake Inhibitor Start: 05-01-2014 End: 01-13-2016 CELEXA 10 MG TABS daily CITALOPRAM HYDROBROMIDE [id number] Ana Laura SUTTONC clindamycin 150 mg oral capsule (10 sources) [...] TABS 1 tablet by mouth MAGNESIUM OXIDE [id number] Ana Laura Salamanca PA-C meloxicam 15 mg [...] 1 tablet by mouth daily MULTIPLE VITAMINS-MINERALS [id number] Ana Laura Salaamnca PA-C MULTIPLE VITAMINS-MINERALS (15 sources) Start: 01-13-2016 take 1 tablet by mouth once daily ONE DAILY MULTIVITAMIN WOMEN TABS 1 tablet by mouth daily MULTIPLE VITAMINS-MINERALS [id number] Ana Laura ZUÑIGA-C Start: 01-13-2016 take 1 tablet by pipo th once daily ONE DAILY MULTIVITAMIN WOMEN TABS 1 tablet by mouth daily MULTIPLE VITAMINS-MINERALS 93541492619 Ana Laura ZUÑIGA-C potassium chloride 10 meq extended release oral tablet (20 sources) Start: 07-19-2018 End: 02-07-2025 take 1 tablet by mouth once daily Potassium Chloride 10 mEq tablet extended release Discontinued 10 meq PO DAILY 10 08July 19, 2018 1:00am February 07, 2025 9:17am Start: 01-13-2016 POTASSIUM CHLO RIDE ER 10 MEQ CR-TABS 1 tablet by mouth as need for muscle cramps POTASSIUM CHLORIDE 91490581189 Ana Laura ZUÑIGA-C predniSONE 20 mg oral tablet (20 sources) Corticosteroid Start: 01-13-2016 PREDNISONE 20 MG TABS 1 tablet by mouth as needed for arthritis pain PREDNISONE [id number] Ana Laura ZUÑIGA-C 24 hr propranolol hydrochloride 80 mg extended [...] 1 MG TABS every night ROPINIROLE HCL [id number] Marysol Juarez 24 hr rotigotine 0.125 mg/hr transdermal system (20 sources) Start: 01-13-2016 NEUPRO 3 MG/24HR PT24 1 patch every 24 hours ROTIGOTINE [id number] Ana Laura SUTTONC Start: 01-13-2016 NEUPRO 3 MG/24 HR PT24 1 patch every 24 hours ROTIGOTINE 00176965783 Ana Laura Salamanca PA-C B COMPLEX VITAMINS (20 sources) Start: 01-13-2016 take 1 tablet by mouth once daily VITAMIN B COMPLEX TABS 1 tablet by mouth daily B COMPLEX VITAMINS 48765933057 Ana Laura Pena Jadyn RICHARDS Start: 01-13-2016 take 1 tablet by pipo th once daily VITAMIN B COMPLEX TABS 1 tablet by mouth daily B COMPLEX VITAMINS 30158973096 Ana Laura Salamanca SUSIE Problems Active Problems Problem Classification Problem Date [...] of left knee] Onset: 7 01-17-2017 Chronic Nonspecific chest pain (12 sources) Chest pain; Translations: [Chest pain, unspecified] 06-15-2018 Episodic Nutritional deficiencies (1 source) Vitamin D deficiency, unspecified; Translations: [Vitamin D deficiency, unspecified] Onset: 5 Chronic Open wounds of extremities (7 sources) Needle [...] of musculoskeletal system] Onset: 7 04-14-2017 Chronic Other screening for suspected conditions (not mental disorders or infectious disease) (1 source) Encounter for screening mammogram for malignant neoplasm of breast; Translations: [Encounter for screening mammogram for malignant neoplasm of breast] Onset: 5 Episodic Residual codes; unclassified (12 sources) H/O: Disorder; [...] knee, initial encounter] Onset: 02-17-2017 02-17-2017 Episodic Nausea and vomiting (3 sources) Nausea; Translations: [Nausea] Onset: 04-07-2025 03-31-2025 Episodic Other aftercare (4 sources) Encounter for [...] Test Name Value Interpretation Reference Range Facility CBC, [employer] 06-28-2025 Absolute Lymph 1.68 X10 3/uL Normal 0.83-4.51 [facility] Comment on above: Performed By: #### L 500.2900, L100.0200 #### [facility] Laboratory [address] [place], [address] Absolute Neut 6.2 X10 3/uL Normal 2.0-7.7 [facility] Comment on above: Performed By: #### L 500.2900, L100.0200 #### [facility] Laboratory [address] [place], [address] Basophils/100 WBC (Bld) 0.9 % Normal 0-1 [facility] Comment on above: Performed By: #### L 500.2900, L100.0200 #### [facility] Laboratory [address] [place], [address] Eosinophils/100 WBC (Bld) 1.8 % Normal 0-5 [facility] Comment on above: Performed By: #### L 500.2900, L100.0200 #### [facility] Laboratory [address] [place], [address] Erythrocyte distribution width (RBC) [Ratio] 13.6 % Normal 11.6-14.6 [facility] Comment on above: Performed By: #### L 500.2900, L100.0200 #### [facility] Laboratory [address] [place], [address] Hematocrit (Bld) [Volume fraction] 37.6 % Normal 37-47 [facility] Comment on above: Performed By: #### L 500.2900, L100.0200 #### [facility] Laboratory [address] [place], [address] Hemoglobin (Bld) [Mass/Vol] 12.3 g/dL Normal 12.0-15.0 [facility] Comment on above: Performed By: #### L 500.2900, L100.0200 #### [facility] Laboratory [address] [place], [address] Lymphocytes/100 WBC (Bld) 19.4 % Normal 19-41 [facility] Comment on above: Performed By: #### L 500.2900, L100.0200 #### [facility] Laboratory [address] [place], [address] MCH (RBC) [Entitic mass] 31.9 pg Normal 27.0-32.0 [facility] Comment on above: Performed By: #### L 500.2900, L100.0200 #### [facility] Laboratory [address] [place], [address] MCHC (RBC) [Mass/Vol] 32.7 g/dL Normal 32-36 [facility] Comment on above: Performed By: #### L 500.2900, L100.0200 #### [facility] Laboratory [address] [place], [address] MCV (RBC) [Entitic vol] 97.4 fL Normal 81-99 [facility] Comment on above: Performed By: #### L 500.2900, L100.0200 #### [facility] Laboratory [address] [place], [address] Monocytes/100 WBC (Bld) 6.1 % Normal 0-10 [facility] Comment on above: Performed By: #### L 500.2900, L100.0200 #### [facility] Laboratory [address] [place], [address] Neutrophils/100 WBC (Bld) 71.3 % High 47-70 [facility] Comment on above: Performed By: #### L 500.2900, L100.0200 #### [facility] Laboratory [address] [place] [place], [address] NRBC # 0.00 10 3/uL Normal 0-5 [facility] Comment on above: Performed By: #### L 500.2900, L100.0200 #### [facility] Laboratory [address] [place], [address] Nucleated RBC (Bld) [#/Vol] 0 10*3/uL Normal 0-5 [facility] Comment on above: Performed By: #### L 500.2900, L100.0200 #### [facility] Laboratory [address] [place], [address] Platelet mean volume (Bld) [Entitic vol] 8.4 fL Normal 6.2-12.0 [facility] Comment on above: Performed By: #### L 500.2900, L100.0200 #### [facility] Laboratory [address] [place], [address] Platelets (Bld) [#/Vol] 339 10*3/uL Normal 150-450 [facility] Comment on above: Performed By: #### L 500.2900, L100.0200 #### [facility] Laboratory [address] [place], [address] RBC (Bld) [#/Vol] 3.86 10*6/uL Low 4.2-5.4 [facility] Comment on above: Performed By: #### L 500.2900, L100.0200 #### [facility] Laboratory [address] [place], [address] RDW SD 48.6 fl High 35.1-43.9 [facility] Comment on above: Performed By: #### L 500.2900, L100.0200 #### [facility] Laboratory [address] [place], [address] WBC (Bld) [#/Vol] 8.7 10*3/uL Normal 4.4-11.0 [facility] Comment on above: Performed By: #### L 500.2900, L100.0200 #### [facility] Laboratory [address] [place], [address] Absolute Neut Normal 2.0-7.7 [facility] Comment on above: Result Comment: EMP ON OTHER REQ Performed By: #### L 100.0200, L506.1001 #### [facility] Laboratory [address] [place], [address] HCT Normal 37-47 [facility] Comment on above: Result Comment: EMP ON OTHER REQ Performed By: #### L 100.0200, L506.1001 #### [facility] Laboratory [address] [place], [address] HGB Normal 12.0-15.0 [facility] Comment on above: Result Comment: EMP ON OTHER REQ Performed By: #### L 100.0200, L506.1001 #### [facility] Laboratory [address] [place], [address] MCH Normal 27.0-32.0 [facility] Comment on above: Result Comment: EMP ON OTHER REQ Performed By: #### L 100.0200, L506.1001 #### [facility] Laboratory [address] [place], [address] MCHC Normal 32-36 [facility] Comment on above: Result Comment: EMP ON OTHER REQ Performed By: #### L 100.0200, L506.1001 #### [facility] Laboratory [address] [place], [address] MCV Normal 81-99 [facility] Comment on above: Result Comment: EMP ON OTHER REQ Performed By: #### L 100.0200, L506.1001 #### [facility] Laboratory [address] [place], [address] NEUT% Normal 47-70 [facility] Comment on above: Result Comment: EMP ON OTHER REQ Performed By: #### L 100.0200, L506.1001 #### [facility] Laboratory [address] [place], [address] NRBC # Normal 0-5 [facility] Comment on above: Result Comment: EMP ON OTHER REQ Performed By: #### L 100.0200, L506.1001 #### [facility] Laboratory [address] [place], [address] PLT Normal 150-450 [facility] Comment on above: Result Comment: EMP ON OTHER REQ Performed By: #### L 100.0200, L506.1001 #### [facility] Laboratory [address] [place], [address] RBC Normal 4.2-5.4 [facility] Comment on above: Result Comment: EMP ON OTHER REQ Performed By: #### L 100.0200, L506.1001 #### [facility] Laboratory [address] [place], [address] RDW CV Normal 11.6-14.6 [facility] Comment on above: Result Comment: EMP ON OTHER REQ Performed By: #### L 100.0200, L506.1001 #### [facility] Laboratory [address] [place], [address] RDW SD Normal 35.1-43.9 [facility] Comment on above: Result Comment: EMP ON OTHER REQ Performed By: #### L 100.0200, L506.1001 #### [facility] Laboratory [address] [place], [address] WBC Normal 4.4-11.0 [facility] Comment on above: Result Comment: EMP ON OTHER REQ Performed By: #### L 100.0200, L506.1001 #### [facility] Laboratory [address] [place], [address] [employer] LDH 196 U/L Normal 84-246 [facility] Comment on above: Performed By: #### L 500.2900, L100.0200 #### [facility] Laboratory [address] [place], [address] Phosphate [Mass/Vol] 4.1 mg/dL Normal 2.7-4.5 [facility] Comment on above: Performed By: #### L 500.2900, L100.0200 #### [facility] Laboratory [address] [place], [address] URIC 4.2 mg/dL Normal 2.6-6.0 [facility] Comment on above: Result Comment: The drugs N-Acetylcysteine and Metamizole may falsely depress this assay. Performed By: #### L 500.2900, L100.0200 #### [facility] Laboratory [address] [place], [address] Vitamin D,25 Hydroxyon 06-28 Vitamin D 25-OH 30.1 ng/mL Normal 30-100 [facility] Comment on above: Result Comment: Mel min D Status Deficiency: <20 ng/mL (50nmol/L) Insufficiency: 20-30 ng/mL (50-75 nmol/L) Sufficiency: 30-100 ng/mL (75-250 nmol/L) Toxicity: >100 ng/mL (>250 nmol/L) Performed By: #### L 100.0200, L506.1001 #### [facility] Laboratory [address] [place], [address] Inital Evaluation (1) - PTon 05-14-2025 Inital Evaluation (1) - PT [facility] Physical Therapy [address] [place] [address] / REHABILITATION SERVICES INITIAL EVALUATION MR#: [id number] Acct: [id number] Name: DARWIN PORTILLO Rep #: [id number] : 1965 60 From: Yusra LEE Referring Dr.: Dr. Markel Leyva DPM Status: R EG RCR Insurance: [employer]/[facility] SELF PAY INSURANCE Patient's Visit Information Visit [...] in therapy with Dr at her appt [facility]. 3X/ week for 8 weeks for [...] To improve (more content not included)... Normal [facility] Vitamin D,25 Hydroxyon 05-09 Vitamin D 25-OH 27.9 ng/mL Low 30-100 [facility] Comment on above: Result Comment: Mel min D Status Deficiency: <20 ng/mL (50nmol/L) Insufficiency: 20-30 ng/mL (50-75 nmol/L) Sufficiency: 30-100 ng/mL (75-250 nmol/L) Toxicity: >100 ng/mL (>250 nmol/L) Performed By: #### L 501.6710, L506.1001, L500.4050, L101.9900, L100.0100 ####[facility] [id number] [place], [place], [id number] Absolute lymphocyte countOrd ered By: Melissa Gonzales on 05-08-2025 Lymphocytes Auto (Unsp spec) [#/Vol] 2.65 10*3/uL 0.83-4.51 [facility] Absolute neutrophil countOrd ered By: Melissa Gonzales on 05-08-2025 Neutrophils (Bld) [#/Vol] 5.6 10*3/uL 2.0-7.7 [facility] Anion gap in Serum or Plasma Ordered By: Melissa Gonzales on 05-08-2025 Anion gap [Moles/Vol] 14 mmol/L 5-15 [facility] Automated lymphocyte count a s percentage of total leukocytesOrdered By: Melissa Gonzales on 05-08-2025 Lymphocytes/100 WBC Auto (Unsp spec) 29.9 % 19-41 [facility] BUN/creatinine ratioOrdered By: Melissa Gonzales on 08-28-2025 Urea nitrogen/Creatinine [Mass ratio] 10.5 mg/mg 10-20 [facility] Basophil percentageOrdered B y: Melissa Gonzales on 05-08-2025 Basophils/100 WBC (Bld) 0.8 % 0-1 [facility] Bilirubin, totalOrdered By: Melissa Gonzales on 05-08-2025 Bilirubin [Mass/Vol] 0.22 mg/dL 0.00-1.30 [facility] CBC W/Diff, Automatedon 04-12 Absolute Lymph 2.65 X10 3/uL Normal 0.83-4.51 [facility] Comment on above: Performed By: #### L 501.6710, L506.1001, L500.4050, L101.9900, L100.0100 ####[facility] [address] [place], [address] Absolute Neut 5.6 X10 3/uL Normal 2.0-7.7 [facility] Comment on above: Performed By: #### L 501.6710, L506.1001, L500.4050, L101.9900, L100.0100 ####[facility] [address] [place], [address] Basophils/100 WBC (Bld) 0.8 % Normal 0-1 [facility] Comment on above: Performed By: #### L 501.6710, L506.1001, L500.4050, L101.9900, L100.0100 ####[facility] [address] [place], [address] Eosinophils/100 WBC (Bld) 0.8 % Normal 0-5 [facility] Comment on above: Performed By: #### L 501.6710, L506.1001, L500.4050, L101.9900, L100.0100 ####[facility] [address] [place], [address] Erythrocyte distribution width (RBC) [Ratio] 13.0 % Normal 11.6-14.6 [facility] Comment on above: Performed By: #### L 501.6710, L506.1001, L500.4050, L101.9900, L100.0100 ####[facility] [address] [place], [address] Hematocrit (Bld) [Volume fraction] 42.7 % Normal 37-47 [facility] Comment on above: Performed By: #### L 501.6710, L506.1001, L500.4050, L101.9900, L100.0100 ####[facility] [address] [place], [address] Hemoglobin (Bld) [Mass/Vol] 14.4 g/dL Normal 12.0-15.0 [facility] Comment on above: Performed By: #### L 501.6710, L506.1001, L500.4050, L101.9900, L100.0100 ####[facility] [address] [place], [address] IG% 0.300 Normal 0.0-0.9 [facility] Comment on above: Result Comment: IG% - Immature Granulocytes (promyelocytes, myelocytes and metamyelocytes) > 1% indicates that a LEFT SHIFT is Present. Performed By: #### L 501.6710, L506.1001, L500.4050, L101.9900, L100.0100 ####[facility] [address] [place], [address] Lymphocytes/100 WBC (Bld) 29.9 % Normal 19-41 [facility] Comment on above: Performed By: #### L 501.6710, L506.1001, L500.4050, L101.9900, L100.0100 ####[facility] [address] [place], [address] MCH (RBC) [Entitic mass] 32.1 pg High 27.0-32.0 [facility] Comment on above: Performed By: #### L 501.6710, L506.1001, L500.4050, L101.9900, L100.0100 ####[facility] [address] [place], [address] MCHC (RBC) [Mass/Vol] 33.7 g/dL Normal 32-36 [facility] Comment on above: Performed By: #### L 501.6710, L506.1001, L500.4050, L101.9900, L100.0100 ####[facility] [address] [place], [address] MCV (RBC) [Entitic vol] 95.1 fL Normal 81-99 [facility] Comment on above: Performed By: #### L 501.6710, L506.1001, L500.4050, L101.9900, L100.0100 ####[facility] [address] [place], [address] Monocytes/100 WBC (Bld) 5.4 % Normal 0-10 [facility] Comment on above: Performed By: #### L 501.6710, L506.1001, L500.4050, L101.9900, L100.0100 ####[facility] [address] [place], [address] Neutrophils/100 WBC (Bld) 62.8 % Normal 47-70 [facility] Comment on above: Performed By: #### L 501.6710, L506.1001, L500.4050, L101.9900, L100.0100 ####[facility] [address] [place], [address] Nucleated RBC (Bld) [#/Vol] 0 10*3/uL Normal 0-5 [facility] Comment on above: Performed By: #### L 501.6710, L506.1001, L500.4050, L101.9900, L100.0100 ####[facility] [address] [place], [address] Platelet mean volume (Bld) [Entitic vol] 9.0 fL Normal 6.2-12.0 [facility] Comment on above: Performed By: #### L 501.6710, L506.1001, L500.4050, L101.9900, L100.0100 ####[facility] [address] [place], [address] Platelets (Bld) [#/Vol] 401 10*3/uL Normal 150-450 [facility] Comment on above: Performed By: #### L 501.6710, L506.1001, L500.4050, L101.9900, L100.0100 ####[facility] [address] [place], [address] RBC (Bld) [#/Vol] 4.49 10*6/uL Normal 4.2-5.4 [facility] Comment on above: Performed By: #### L 501.6710, L506.1001, L500.4050, L101.9900, L100.0100 ####[facility] [address] [place], [address] RDW SD 45.6 fl High 35.1-43.9 [facility] Comment on above: Performed By: #### L 501.6710, L506.1001, L500.4050, L101.9900, L100.0100 ####[facility] [address] [place], [address] WBC (Bld) [#/Vol] 8.9 10*3/uL Normal 4.4-11.0 [facility] Comment on above: Performed By: #### L 501.6710, L506.1001, L500.4050, L101.9900, L100.0100 ####[facility] [address] [place], [address] CRPon 05-08-2025 C-REACTIVE PROT < 3.00 Normal 0.0-3.0 [facility] Comment on above: Performed By: #### L 501.6710, L506.1001, L500.4050, L101.9900, L100.0100 ####[facility] [address] [place], [address] Carbon dioxide, total [Moles /volume] in Central venous bloodOrdered By: Melissa Gonzales on 05-08-2025 CO2 [Moles/Vol] 22.7 mmol/L 21.0-32.0 [facility] Chloride assayOrdered By: Ervin Gonzales on 05-08-2025 Chloride [Moles/Vol] 104 mmol/L 98-108 [facility] Comprehensive Metabolic Prof ilon 05-08-2025 Albumin [Mass/Vol] 4.3 g/dL Normal 3.4-4.8 [facility] Comment on above: Performed By: #### L 501.6710, L506.1001, L500.4050, L101.9900, L100.0100 ####[facility] [address] [place], [address] Albumin/Globulin [Mass ratio] 1.3 {ratio} Normal 0.9-2.4 [facility] Comment on above: Performed By: #### L 501.6710, L506.1001, L500.4050, L101.9900, L100.0100 ####[facility] [address] [place], [address] ALK PHOS 103 U/L Normal 35-104 [facility] Comment on above: Performed By: #### L 501.6710, L506.1001, L500.4050, L101.9900, L100.0100 ####[facility] [address] [place], [address] ALT [Catalytic activity/Vol] 20 U/L Normal <=34 [facility] Comment on above: Performed By: #### L 501.6710, L506.1001, L500.4050, L101.9900, L100.0100 ####[facility] [address] [place], [address] AST [Catalytic activity/Vol] 19 U/L Normal <=31 [facility] Comment on above: Performed By: #### L 501.6710, L506.1001, L500.4050, L101.9900, L100.0100 ####[facility] [address] [place], [address] Bilirubin [Mass/Vol] 0.22 mg/dL Normal 0.00-1.30 [facility] Comment on above: Performed By: #### L 501.6710, L506.1001, L500.4050, L101.9900, L100.0100 ####[facility] [address] [place], [address] BUN/CRE 10.5 RATIO Normal 10-20 [facility] Comment on above: Performed By: #### L 501.6710, L506.1001, L500.4050, L101.9900, L100.0100 ####[facility] [address] [place], [address] Calcium [Mass/Vol] 9.5 mg/dL Normal 7.6-11.0 [facility] Comment on above: Performed By: #### L 501.6710, L506.1001, L500.4050, L101.9900, L100.0100 ####[facility] [address] [place], [address] Chloride [Moles/Vol] 104 mmol/L Normal 98-108 [facility] Comment on above: Performed By: #### L 501.6710, L506.1001, L500.4050, L101.9900, L100.0100 ####[facility] [address] [place], [address] CO2 [Moles/Vol] 22.7 mmol/L Normal 21.0-32.0 [facility] Comment on above: Performed By: #### L 501.6710, L506.1001, L500.4050, L101.9900, L100.0100 ####[facility] [address] [place], [address] Creatinine [Mass/Vol] 0.69 mg/dL Low 0.70-1.20 [facility] Comment on above: Performed By: #### L 501.6710, L506.1001, L500.4050, L101.9900, L100.0100 ####[facility] [address] [place], [address] GAP 14 Normal 5-15 [facility] Comment on above: Performed By: #### L 501.6710, L506.1001, L500.4050, L101.9900, L100.0100 ####[facility] [address] [place], [address] GFR/1.73 sq M.predicted among non-blacks MDRD (S/P/Bld) [Vol rate/Area] 99 mL/min/{1.73_m2} Normal >60 [facility] Comment on above: Result Comment: mL/m in/1.73m2 CKD-EPI Creatinine Equation (2020) Performed By: #### L 501.6710, L506.1001, L500.4050, L101.9900, L100.0100 ####[facility] [address] [place], [address] Globulin (S) [Mass/Vol] 3.3 g/dL Normal 2.2-4.2 [facility] Comment on above: Performed By: #### L 501.6710, L506.1001, L500.4050, L101.9900, L100.0100 ####[facility] [address] [place], [address] Glucose [Mass/Vol] 96 mg/dL Normal 70-99 [facility] Comment on above: Performed By: #### L 501.6710, L506.1001, L500.4050, L101.9900, L100.0100 ####[facility] [address] [place], [address] Potassium [Moles/Vol] 3.9 mmol/L Normal 3.3-5.1 [facility] Comment on above: Performed By: #### L 501.6710, L506.1001, L500.4050, L101.9900, L100.0100 ####[facility] [address] [place], [address] Sodium [Moles/Vol] 140 mmol/L Normal 133-145 [facility] Comment on above: Performed By: #### L 501.6710, L506.1001, L500.4050, L101.9900, L100.0100 ####[facility] [address] [place], [address] T PROT 7.7 g/dL Normal 5.9-8.4 [facility] Comment on above: Performed By: #### L 501.6710, L506.1001, L500.4050, L101.9900, L100.0100 ####[facility] [address] [place], [address] Urea nitrogen [Mass/Vol] 7 mg/dL Normal 4-19 [facility] Comment on above: Performed By: #### L 501.6710, L506.1001, L500.4050, L101.9900, L100.0100 ####[facility] [address] [place], [address] Emergency Department Summary on 05-08-2025 Emergency Department Summary [facility] Medical Records Department [address] [place] [address] Emergency Department Summary 05/08/25 MR#: [id number] Acct: [id number] Name: DARIWN PORTILLO Rep #: [id number] : 1965 60 From: Melissa Gonzales DO [...] over the past 2 to 3 days. [facility] Medical History Wears glasses Post-menopausal Rheumatoid arthritis [...] 1 - 2 puff Inhalation Q4H PRN RI N 05/01/14 02/20/25 History aerosol inhaler Asthma [...] ( 06/15 (more content not included)... Normal [facility] Eosinophil percentageOrdered By: Melissa Gonzales on 05-08-2025 Eosinophils/100 WBC (Bld) 0.8 % 0-5 [facility] Erythrocyte Sed Rateon 05-08 SED RATE 21 mm/hr Normal 0-30 [facility] Comment on above: Performed By: #### L 501.6710, L506.1001, L500.4050, L101.9900, L100.0100 ####[facility] [address] [place], [address] Erythrocyte distribution wid th ratioOrdered By: Melissa Gonzales on 05-08-2025 Erythrocyte distribution width (RBC) [Ratio] 13.0 % 11.6-14.6 [facility] Erythrocyte distribution wid th standard deviationOrdered By: Melissa Gonzales on 05-08-2025 Erythrocyte distribution width (RBC) [Ratio] 45.6 fl High 35.1-43.9 [facility] Erythrocyte sedimentation ra teOrdered By: Melissa Gonzales on 05-08-2025 ESR (Bld) [Velocity] 21 mm/h 0-30 [facility] Foot min 3 Viewson Foot min 3 Views [facility] Imaging Services [address] [place], [place] [id number] Foot min 3 Views MR#: [id number] Acct: [id number] Name: DARWIN PORTILLO Rep #: [id number] : 1965 F 60 From: Robin vargas MD PCP: Dr. Ginna Kowalski MD Status: REG ER Study: Foot min 3 Views Date of Exam: 05/08/25 Exam# [id number] Ordering Dr: Melissa Gonzales DO PROCEDURE: FOOT [...] at the 1st tarsometatarsal joint. Reading Location: [id number] CC: Dr. Melissa Gonzales DO; Dr. Ginna Kowalski MD Internal Audit Manager: Signed Normal [facility] Glomerular filtration rate ( GFR) estimation/1.73 sq m using serum, plasma, or whole bOrdered By: Melissa Gonzales on 05-08-2025 GFR/1.73 sq M.predicted among non-blacks MDRD (S/P/Bld) [Vol rate/Area] 99 mL/min/{1.73_m2} >60 [facility] Comment on above: mL/min/1.73m2 CKD-EP I Creatinine Equation (2020) Hematocrit Auto (Bld) [Volum e fraction]Ordered By: Melissa Gonzales on 05-08-2025 Hematocrit (Bld) [Volume fraction] 42.7 % 37-47 [facility] Hemoglobin measurementOrdere d By: Melissa Gonzales on 05-08-2025 Hemoglobin (Bld) [Mass/Vol] 14.4 g/dL 12.0-15.0 [facility] Immature granulocytes/100 WB C Auto (Bld)Ordered By: Melissa Gonzales on 05-08-2025 Immature granulocytes/100 WBC (Bld) 0.300 % 0.0-0.9 [facility] Comment on above: IG% - Immature Granu locytes (promyelocytes, myelocytes and metamyelocytes) > 1% indicates that a LEFT SHIFT is Present. Laboratory - Chemistry and C hemistry - challengeOrdered By: Melissa Gonzales on 05-08-2025 AST [Catalytic activity/Vol] 19 U/L <32 [facility] MCV (mean corpuscular volume ) determinationOrdered By: Melissa Gonzales on 05-08-2025 MCV (RBC) [Entitic vol] 95.1 fL 81-99 [facility] Mean corpuscular hemoglobin (MCH) determinationOrdered By: Melissa Gonzales on 05-08-2025 MCH (RBC) [Entitic mass] 32.1 pg High 27.0-32.0 [facility] Mean corpuscular hemoglobin concentration (MCHC) determinationOrdered By: Melissa Gonzales on 05-08-2025 MCHC (RBC) [Mass/Vol] 33.7 g/dL 32-36 [facility] Mean platelet volume determi nationOrdered By: Melissa Gonzales on 05-08-2025 Platelet mean volume (Bld) [Entitic vol] 9.0 fL 6.2-12.0 [facility] Monocyte percentageOrdered B y: Melissa Gonzales on 05-08-2025 Monocytes/100 WBC (Bld) 5.4 % 0-10 [facility] Neutrophil percentageOrdered By: Melissa Gonzales on 05-08-2025 Neutrophils/100 WBC (Bld) 62.8 % 47-70 [facility] Nucleated red blood cell per centageOrdered By: Melissa Gonzales on 05-08-2025 Nucleated RBC/100 WBC (Bld) [Ratio] 0 % 0-5 [facility] Platelet countOrdered By: Ervin Gonzales on 05-08-2025 Platelets (Bld) [#/Vol] 401 10*3/uL 150-450 [facility] Potassium measurement (mass/ volume)Ordered By: Melissa Gonzales on 05-08-2025 Potassium (Unsp spec) [Mass/Vol] 3.9 mmol/L 3.3-5.1 [facility] RBC Auto (Bld) [#/Vol]Ordere d By: Melissa Gonzales on 05-08-2025 RBC (Bld) [#/Vol] 4.49 10*6/uL 4.2-5.4 [facility] Serum creatinine measurement (mass/volume)Ordered By: Melissa Gonzales on 05-08-2025 Creatinine [Mass/Vol] 0.69 mg/dL Low 0.70-1.20 [facility] Serum globulin measurementOr dered By: Melissa Gonzales on 05-08-2025 Globulin (S) [Mass/Vol] 3.3 g/dL 2.2-4.2 [facility] Serum glucose measurement (m ass/volume)Ordered By: Melissa Gonzales on 05-08-2025 Glucose [Mass/Vol] 96 mg/dL 70-99 [facility] Serum or plasma C reactive p rotein measurement (mass/volume)Ordered By: Melissa Gonzales on 05-08-2025 CRP [Mass/Vol] mg/L 0.0-3.0 [facility] Serum or plasma alanine bro otransferase (ALT) measurementOrdered By: Melissa Gonzales on 05-08-2025 ALT [Catalytic activity/Vol] 20 U/L <35 [facility] Serum or plasma albumin laura urement (mass/volume)Ordered By: Melissa Gonzales on 05-08-2025 Albumin [Mass/Vol] 4.3 g/dL 3.4-4.8 [facility] Serum or plasma albumin/glob ulin mass ratioOrdered By: Melissa Gonzales on 05-08-2025 Albumin/Globulin [Mass ratio] 1.3 {ratio} 0.9-2.4 [facility] Serum or plasma alkaline sabino sphatase measurementOrdered By: Melissa Gonzalse on 05-08-2025 ALP [Catalytic activity/Vol] 103 U/L 35-104 [facility] Serum or plasma calcium laura urement (mass/volume)Ordered By: Melissa Gonzales on 05-08-2025 Calcium [Mass/Vol] 9.5 mg/dL 7.6-11.0 [facility] Serum or plasma urea nitroge n measurement (mass/volume)Ordered By: Melissa Gonzales on 05-08-2025 Urea nitrogen [Mass/Vol] 7 mg/dL 4-19 [facility] Sodium levelOrdered By: Denia Gonzales on 05-08-2025 Sodium [Moles/Vol] 140 mmol/L 133-145 [facility] Total proteinOrdered By: Madalyn Gonzales on 05-08-2025 Protein [Mass/Vol] 7.7 g/dL 5.9-8.4 [facility] Venous Duplex US, Unilateral on 05-08-2025 Venous Duplex US, Unilateral [facility] [address] [place] [place] [address] Venous Duplex US, Unilateral 05/08/25 1405 MR#: [id number] Acct: [id number] Name: DARWIN PORTILLO Rep #: [id number] : 1965 60 From: Panda Ricks MD [...] to T/P Trunk is compressible. 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 PTV is compressible. LT PerV is compressible. [...] Date Panda Ricks MD CC: Dr. Melissa Gonzales, DO; Dr. Ginna Kowalski MD Date Dictated: 05/08/251404 Date Transcribed: 05/13/25740 Internal Audit Manager: Signed Normal [facility] White blood cell (WBC) count Ordered By: Melissa Gonzales on 05-08-2025 WBC (Bld) [#/Vol] 8.9 10*3/uL 4.4-11.0 [facility] Absolute lymphocyte countOrd ered By: Per Marrero on 03-31-2025 Lymphocytes Auto (Unsp spec) [#/Vol] 2.62 10*3/uL 0.83-4.51 [facility] Absolute neutrophil countOrd ered By: Per Marrero on 03-31-2025 Neutrophils (Bld) [#/Vol] 4.1 10*3/uL 2.0-7.7 [facility] Anion gap in Serum or Plasma Ordered By: Per Marrero on 03-31-2025 Anion gap [Moles/Vol] 14 mmol/L 5-15 [facility] Automated lymphocyte count a s percentage of total leukocytesOrdered By: Per Marrero on 03-31-2025 Lymphocytes/100 WBC Auto (Unsp spec) 35.6 % 19-41 [facility] BUN/creatinine ratioOrdered By: Per Marrero on 03-31-2025 Urea nitrogen/Creatinine [Mass ratio] 15.4 mg/mg 10- [facility] Basophil percentageOrdered B y: Per Marrero on 03-31-2025 Basophils/100 WBC (Bld) 0.8 % 0-1 [facility] Bilirubin, totalOrdered By: Per Marrero on 03-31-2025 Bilirubin [Mass/Vol] 0.21 mg/dL 0.00-1.30 [facility] CBC W/Diff, Automatedon 03-12 Absolute Lymph 2.62 X10 3/uL Normal 0.83-4.51 [facility] Comment on above: Performed By: #### L 500.4050, L100.0100 #### [facility] Laboratory [address] [place], [address] Absolute Neut 4.1 X10 3/uL Normal 2.0-7.7 [facility] Comment on above: Performed By: #### L 500.4050, L100.0100 #### [facility] Laboratory [address] [place], [address] Basophils/100 WBC (Bld) 0.8 % Normal 0-1 [facility] Comment on above: Performed By: #### L 500.4050, L100.0100 #### [facility] Laboratory [address] [place], [address] Eosinophils/100 WBC (Bld) 1.1 % Normal 0-5 [facility] Comment on above: Performed By: #### L 500.4050, L100.0100 #### [facility] Laboratory [address] [place], [address] Erythrocyte distribution width (RBC) [Ratio] 13.3 % Normal 11.6-14.6 [facility] Comment on above: Performed By: #### L 500.4050, L100.0100 #### [facility] Laboratory [address] [place], [address] Hematocrit (Bld) [Volume fraction] 39.7 % Normal 37-47 [facility] Comment on above: Performed By: #### L 500.4050, L100.0100 #### [facility] Laboratory [address] [place], [address] Hemoglobin (Bld) [Mass/Vol] 13.3 g/dL Normal 12.0-15.0 [facility] Comment on above: Performed By: #### L 500.4050, L100.0100 #### [facility] Laboratory [address] [place], [address] IG% 0.300 Normal 0.0-0.9 [facility] Comment on above: Result Comment: IG% - Immature Granulocytes (promyelocytes, myelocytes and metamyelocytes) > 1% indicates that a LEFT SHIFT is Present. Performed By: #### L 500.4050, L100.0100 #### [facility] Laboratory [address] [place], [address] Lymphocytes/100 WBC (Bld) 35.6 % Normal 19-41 [facility] Comment on above: Performed By: #### L 500.4050, L100.0100 #### [facility] Laboratory [address] [place], [address] MCH (RBC) [Entitic mass] 31.1 pg Normal 27.0-32.0 [facility] Comment on above: Performed By: #### L 500.4050, L100.0100 #### [facility] Laboratory [address] [place], [address] MCHC (RBC) [Mass/Vol] 33.5 g/dL Normal 32-36 [facility] Comment on above: Performed By: #### L 500.4050, L100.0100 #### [facility] Laboratory [address] [place], [address] MCV (RBC) [Entitic vol] 93.0 fL Normal 81-99 [facility] Comment on above: Performed By: #### L 500.4050, L100.0100 #### [facility] Laboratory [address] [place], [address] Monocytes/100 WBC (Bld) 6.9 % Normal 0-10 [facility] Comment on above: Performed By: #### L 500.4050, L100.0100 #### [facility] Laboratory [address] [place], [address] Neutrophils/100 WBC (Bld) 55.3 % Normal 47-70 [facility] Comment on above: Performed By: #### L 500.4050, L100.0100 #### [facility] Laboratory [address] [place], [address] Nucleated RBC (Bld) [#/Vol] 0 10*3/uL Normal 0-5 [facility] Comment on above: Performed By: #### L 500.4050, L100.0100 #### [facility] Laboratory [address] [place], [address] Platelet mean volume (Bld) [Entitic vol] 9.0 fL Normal 6.2-12.0 [facility] Comment on above: Performed By: #### L 500.4050, L100.0100 #### [facility] Laboratory [address] [place], [address] Platelets (Bld) [#/Vol] 333 10*3/uL Normal 150-450 [facility] Comment on above: Performed By: #### L 500.4050, L100.0100 #### [facility] Laboratory [address] [place], [address] RBC (Bld) [#/Vol] 4.27 10*6/uL Normal 4.2-5.4 [facility] Comment on above: Performed By: #### L 500.4050, L100.0100 #### [facility] Laboratory [address] [place], [address] RDW SD 45.1 fl High 35.1-43.9 [facility] Comment on above: Performed By: #### L 500.4050, L100.0100 #### [facility] Laboratory [address] [place], [address] WBC (Bld) [#/Vol] 7.4 10*3/uL Normal 4.4-11.0 [facility] Comment on above: Performed By: #### L 500.4050, L100.0100 #### [facility] Laboratory [address] [place], [address] Carbon dioxide, total [Moles /volume] in Central venous bloodOrdered By: Per Marrero on 03-31-2025 CO2 [Moles/Vol] 23.0 mmol/L 21.0-32.0 [facility] Chloride assayOrdered By: Ray Marrero on 03-31-2025 Chloride [Moles/Vol] 105 mmol/L 98-108 [facility] Comprehensive Metabolic Prof ilon 03-31-2025 Albumin [Mass/Vol] 4.3 g/dL Normal 3.4-4.8 [facility] Comment on above: Performed By: #### L 500.4050, L100.0100 ####[facility] [address] [place], [address] Albumin/Globulin [Mass ratio] 1.5 {ratio} Normal 0.9-2.4 [facility] Comment on above: Performed By: #### L 500.4050, L100.0100 ####[facility] [address] [place], [address] ALK PHOS 95 U/L Normal 35-104 [facility] Comment on above: Performed By: #### L 500.4050, L100.0100 ####[facility] [address] [place], [address] ALT [Catalytic activity/Vol] 25 U/L Normal <=34 [facility] Comment on above: Performed By: #### L 500.4050, L100.0100 ####[facility] [address] [place], [address] AST [Catalytic activity/Vol] 18 U/L Normal <=31 [facility] Comment on above: Performed By: #### L 500.4050, L100.0100 ####[facility] [address] [place], [address] Bilirubin [Mass/Vol] 0.21 mg/dL Normal 0.00-1.30 [facility] Comment on above: Performed By: #### L 500.4050, L100.0100 ####[facility] [address] [place], [address] BUN/CRE 15.4 RATIO Normal 10-20 [facility] Comment on above: Performed By: #### L 500.4050, L100.0100 ####[facility] [address] [place], [address] Calcium [Mass/Vol] 9.4 mg/dL Normal 7.6-11.0 [facility] Comment on above: Performed By: #### L 500.4050, L100.0100 ####[facility] [address] [place], [address] Chloride [Moles/Vol] 105 mmol/L Normal 98-108 [facility] Comment on above: Performed By: #### L 500.4050, L100.0100 ####[facility] [address] [place], [address] CO2 [Moles/Vol] 23.0 mmol/L Normal 21.0-32.0 [facility] Comment on above: Performed By: #### L 500.4050, L100.0100 ####[facility] [address] [place], [address] Creatinine [Mass/Vol] 0.63 mg/dL Low 0.70-1.20 [facility] Comment on above: Performed By: #### L 500.4050, L100.0100 ####[facility] [address] [place], [address] ECRCL 109.53 ml/min Normal 50-250 [facility] Comment on above: Performed By: #### L 500.4050, L100.0100 ####[facility] [address] [place], [address] GAP 14 Normal 5-15 [facility] Comment on above: Performed By: #### L 500.4050, L100.0100 ####[facility] [address] [place], [address] GFR/1.73 sq M.predicted among non-blacks MDRD (S/P/Bld) [Vol rate/Area] 102 mL/min/{1.73_m2} Normal >60 [facility] Comment on above: Result Comment: mL/m in/1.73m2 CKD-EPI Creatinine Equation (2020) Performed By: #### L 500.4050, L100.0100 ####[facility] [address] [place], [address] Globulin (S) [Mass/Vol] 2.9 g/dL Normal 2.2-4.2 [facility] Comment on above: Performed By: #### L 500.4050, L100.0100 ####[facility] [address] [place], [address] Glucose [Mass/Vol] 90 mg/dL Normal 70-99 [facility] Comment on above: Performed By: #### L 500.4050, L100.0100 ####[facility] [address] [place], [address] Potassium [Moles/Vol] 3.8 mmol/L Normal 3.3-5.1 [facility] Comment on above: Performed By: #### L 500.4050, L100.0100 ####[facility] [address] [place], [address] Sodium [Moles/Vol] 142 mmol/L Normal 133-145 [facility] Comment on above: Performed By: #### L 500.4050, L100.0100 ####[facility] [address] [place], [address] T PROT 7.1 g/dL Normal 5.9-8.4 [facility] Comment on above: Performed By: #### L 500.4050, L100.0100 ####[facility] [address] [place], [address] Urea nitrogen [Mass/Vol] 10 mg/dL Normal 4-19 [facility] Comment on above: Performed By: #### L 500.4050, L100.0100 ####[facility] [address] [place], [address] Emergency Department Summary on 03-31-2025 Emergency Department Summary [facility] Medical Records Department [address] [place] [address] Emergency Department Summary 03/31/25 MR#: [id number] Acct: [id number] Name: DARWIN PORTILLO Rep #: [id number] : 1965 60 From: Per Marrero MD [...] 1 - 2 puff Inhalation Q4H PRN RI N 05/01/14 02/20/25 History aerosol inhaler Asthma [...] chest pain (more content not included)... Normal [facility] Eosinophil percentageOrdered By: Per Marrero on 03-31-2025 Eosinophils/100 WBC (Bld) 1.1 % 0-5 [facility] Erythrocyte distribution wid th ratioOrdered By: Per Marrero on 03-31-2025 Erythrocyte distribution width (RBC) [Ratio] 13.3 % 11.6-14.6 [facility] Erythrocyte distribution wid th standard deviationOrdered By: Per Marrero on 03-31-2025 Erythrocyte distribution width (RBC) [Ratio] 45.1 fl High 35.1-43.9 [facility] Glomerular filtration rate ( GFR) estimation/1.73 sq m using serum, plasma, or whole bOrdered By: Per Marrero on 03-31-2025 GFR/1.73 sq M.predicted among non-blacks MDRD (S/P/Bld) [Vol rate/Area] 102 mL/min/{1.73_m2} >60 [facility] Comment on above: mL/min/1.73m2 CKD-EP I Creatinine Equation (2020) Hematocrit Auto (Bld) [Volum e fraction]Ordered By: Per Marrero on 03-31-2025 Hematocrit (Bld) [Volume fraction] 39.7 % 37-47 [facility] Hemoglobin measurementOrdere d By: Per Marrero on 03-31-2025 Hemoglobin (Bld) [Mass/Vol] 13.3 g/dL 12.0-15.0 [facility] Immature granulocytes/100 WB C Auto (Bld)Ordered By: Per Marrero on 03-31-2025 Immature granulocytes/100 WBC (Bld) 0.300 % 0.0-0.9 [facility] Comment on above: IG% - Immature Granu locytes (promyelocytes, myelocytes and metamyelocytes) > 1% indicates that a LEFT SHIFT is Present. Laboratory - Chemistry and C hemistry - challengeOrdered By: Per Marrero on 03-31-2025 AST [Catalytic activity/Vol] 18 U/L <32 [facility] MCV (mean corpuscular volume ) determinationOrdered By: Per Marrero on 03-31-2025 MCV (RBC) [Entitic vol] 93.0 fL 81-99 [facility] Mean corpuscular hemoglobin (MCH) determinationOrdered By: Per Marrero on 03-31-2025 MCH (RBC) [Entitic mass] 31.1 pg 27.0-32.0 [facility] Mean corpuscular hemoglobin concentration (MCHC) determinationOrdered By: Per Marrero on 03-31-2025 MCHC (RBC) [Mass/Vol] 33.5 g/dL 32-36 [facility] Mean platelet volume determi nationOrdered By: Per Marrero on 03-31-2025 Platelet mean volume (Bld) [Entitic vol] 9.0 fL 6.2-12.0 [facility] Monocyte percentageOrdered B y: Per Marrero on 03-31-2025 Monocytes/100 WBC (Bld) 6.9 % 0-10 [facility] Neutrophil percentageOrdered By: Per Marrero on 03-31-2025 Neutrophils/100 WBC (Bld) 55.3 % 47-70 [facility] Nucleated red blood cell per centageOrdered By: Per Marrero on 03-31-2025 Nucleated RBC/100 WBC (Bld) [Ratio] 0 % 0-5 [facility] Platelet countOrdered By: Ray Marrero on 03-31-2025 Platelets (Bld) [#/Vol] 333 10*3/uL 150-450 [facility] Potassium measurement (mass/ volume)Ordered By: Per Marrero on 03-31-2025 Potassium (Unsp spec) [Mass/Vol] 3.8 mmol/L 3.3-5.1 [facility] RBC Auto (Bld) [#/Vol]Ordere d By: Per Marrero on 03-31-2025 RBC (Bld) [#/Vol] 4.27 10*6/uL 4.2-5.4 [facility] Serum creatinine measurement (mass/volume)Ordered By: Per Marrero on 03-31-2025 Creatinine [Mass/Vol] 0.63 mg/dL Low 0.70-1.20 [facility] Serum globulin measurementOr dered By: Per Marrero on 03-31-2025 Globulin (S) [Mass/Vol] 2.9 g/dL 2.2-4.2 [facility] Serum glucose measurement (m ass/volume)Ordered By: Per Marrero on 03-31-2025 Glucose [Mass/Vol] 90 mg/dL 70-99 [facility] Serum or plasma alanine bro otransferase (ALT) measurementOrdered By: Per Marrero on 03-31-2025 ALT [Catalytic activity/Vol] 25 U/L <35 [facility] Serum or plasma albumin laura urement (mass/volume)Ordered By: Per Marrero on 03-31-2025 Albumin [Mass/Vol] 4.3 g/dL 3.4-4.8 [facility] Serum or plasma albumin/glob ulin mass ratioOrdered By: Per Marrero on 03-31-2025 Albumin/Globulin [Mass ratio] 1.5 {ratio} 0.9-2.4 [facility] Serum or plasma alkaline sabino sphatase measurementOrdered By: Per Marrero on 03-31-2025 ALP [Catalytic activity/Vol] 95 U/L 35-104 [facility] Serum or plasma calcium laura urement (mass/volume)Ordered By: Per Marrero on 03-31-2025 Calcium [Mass/Vol] 9.4 mg/dL 7.6-11.0 [facility] Serum or plasma urea nitroge n measurement (mass/volume)Ordered By: Per Marrero on 03-31-2025 Urea nitrogen [Mass/Vol] 10 mg/dL 4-19 [facility] Sodium levelOrdered By: Per Marrero on 03-31-2025 Sodium [Moles/Vol] 142 mmol/L 133-145 [facility] Total proteinOrdered By: Jose Marrero on 03-31-2025 Protein [Mass/Vol] 7.1 g/dL 5.9-8.4 [facility] White blood cell (WBC) count Ordered By: Per Marrero on 03-31-2025 WBC (Bld) [#/Vol] 7.4 10*3/uL 4.4-11.0 [facility] Oncology Visit Reporton Oncology Visit Report [facility] [address] [place] [address] OFFICE VISIT Date of Service: 03/13/25 1307 MR#: [id number] Acct: [id number] Name: DARWIN PORTILLO Rep #: [id number] : 1965 From: Emmie PandyaC Age/Sex: 60/F Location[facility] Status: Signed Unable Date 03/13/25 Patient: DARWIN [...] contact the lung cancer screening program at [facility] at with any further questions or concerns. Sincerely, Emmie Ramirez, MILITARY ANALYST-CRYPTOLOGIC SUPPORT SPECIALIST, AOCNP 03/13/25 1308 Date Emmie Ramirez NP, NP-Karen Cosigner Signature: Date (if applicable) CC: Dr. Ginna Kowalski MD Normal [facility] Bedside Glucoseon 02-21-2025 FINGERSTICK GLU 108 mg/dL High 74-106 [facility] Comment on above: Result Comment: JUAN C BAUM OF PATIENT CARE PER NURSING PROTOCOL Performed By: #### L 501.080 ####[facility] [address] [place], [address] Foot min 3 Viewson 5 Foot min 3 Views [facility] Imaging Services [address] [address] Foot min 3 Views MR#: [id number] Acct: [id number] Name: DARWIN PORTILLO Rep #: [id number] : 1965 F 60 From: Ramin Taveras MD PCP: Dr. Ginna Kowalski MD Status: REG [facility] Study: Foot min 3 Views Date of Exam: 02/21/25 Exam# [id number] Ordering Dr: Markel Leyva DPM EXAM: XR [...] operative note for further details. Reading Location: [facility] CC: DPM Dr. Markel Leyva; Dr. Ginna Kowalski MD Internal Audit Manager: Signed Normal [facility] Glucose measurement at health system deOrdered By: Markel Leyva on 02-21-2025 Glucose [Mass/Vol] 108 mg/dL High 74-106 [facility] Comment on above: MANAGEMENT OF PATIEN T CARE PER NURSING PROTOCOL MR/POSTOP.ANEon 02-21-2025 MR/POSTOP.[facility] Medical Records Department [address] [address] Anesthesia Postop Eval I 02/21/25 1238 MR#: [id number] Acct: [id number] Name: DARWIN PORTILLO Rep #: [id number] : 1965 60 From: Sheree Simpson CRNA PCP: Dr. Ginna Kowalski MD Status:REG [facility] Y Race: C Location: [place] [address] Anesthesia: Postop Eval I Current Vital Signs [...] completed: Yes 02/21/25 1238 Date Sheree Simpson TDP DISPLAYS ANALYST Cosigner Signature: Date CC: Signed Normal [facility] MR/TVFGRMCZ1yc 02-21-2025 MR/POSTOPAN2 [facility] Medical Records Department [address] [place] [address] Anesthesia Postop Eval II 02/21/25 1255 MR#: [id number] Acct: [id number] Name: DARWIN PORTILLO Rep #: [id number] : 1965 60 From: Edgardo Toth MD PCP: Dr. Ginna Kowalski MD Status:REG [facility] Y Race: C Location: [place] [address] Anesthesia Postop Eval I Sum Postop Eval Completion status Anesthesia document: Postop Eval 1 completed: Yes Anesthesia Postop Eval I Summary Anesthesia Postop Eval I Summary: Anesthesia Postop Eval I: Assessment Summary Airway patent Yes 02/21/25 12:38 TDP DISPLAYS ANALYST.HENRRYOBClifton Spontaneous unlabored Yes 02/21/25 12:38 TDP DISPLAYS ANALYST.HENRRYOBClifton respirations Mental status Awake,Calm 02/21/25 12:38 TDP DISPLAYS ANALYST.SKOBY nausea No 02/21/25 12:38 TDP DISPLAYS ANALYST.SKOBY Vomiting No 02/21/25 12:38 TDP DISPLAYS ANALYST.SKOBY Anesthesia Postop Eval I: Fluid Summary Crystalloid volume administer 1,200 02/21/25 12:38 TDP DISPLAYS ANALYST.BETH (ml) Colloids volume administered ( ml) Blood Product volume administered (ml) Total IV fluid infused 1,200 02/21/25 12:38 TDP DISPLAYS ANALYST.HENRRYOBClifton Anesthesia Postop Eval I: Summary Notes Anesthesia Complication No 02/21/25 12:38 TDP DISPLAYS ANALYST.SKOBClifton Anesthesia Complication Comment: Post-operative progress note Anesthesia: Postop Eval II Evaluation Mental status: Awake Pain Level: 2 nausea: No Vomiting: No 02/21/25 1255 Date Edgardo Mayes Signature: Date CC: Signed Normal [facility] Operative Reporton 5 Operative Report [facility] Medical Records Department [address] [place] [address] Operative Report 02/21/25 0742 MR#: [id number] Acct: [id number] Name: DARWIN PORTILLO Rep #: [id number] : 1965 60 From: Markel Leyva DPM PCP: Dr. Ginna Kowalski MD Status:[facility] Location: [facility] Problems Associated Problem List Diagnoses (1) Pain [...] deformity, left foot Surgery/Procedure Performed: Procedure #1: [place] of bone marrow aspirate concentrate, left foot [...] Application of posterior splint, left lower extremity plant production manager: Yes Wholesale Account Manager: Angel Hurst Tasks completed by first assistant manager: Opening, Closing, Harvesting grafts, Dissecting tissue and Implanting device Additional under water assistant?: No Type of Anesthesia: General/Regional and [...] a 60-year-old female who was admitted to [facility] for elective left foot major surgery due to her cavus deformity. Patient is well-known to my private office and has been treated conservatively for greater than 6 months due to her cavus foot deformity. 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 Normal [facility] Medical Records Department [address] [place] [address] PAT - Anesthesia 02/07/25 1808 MR#: [id number] Acct: [id number] Name: DARWIN PORTILLO Rep #: [id number] : 1965 60 From: Saul Vaca MD PCP: Dr. Ginna Kowalski MD Status:PRE [facility] Y Race: C Location: [facility] Pre-Assessment Diagnosis/Proposed Procedure Planned Operative Procedure(s): HARVEST OF BONE MARROW ASPIRATE CONCENTRATE,BONILLA OSTEOTOMY WITH LATERAL SHIFT OF LEFT CALCANEOUS WITH PERONEOUS LONGIS BREVIS TENDON TRANSFER.ENDOSCOPIC PLANTAR FASCIA RELEASE,DORSIFLEXION OSTEOTOMY OF THE FIRST METATARSAL,OSTEOTOMY OF THE LEFT TARSAL BONE. 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 - relationship advisor: Anesthesia History - relationship advisor Hx Hospitalization No 02/07/25 09:20 Any Problems [...] take am of surgery PONV PONV - relationship advisor: PONV - relationship advisor Female Yes 02/07/25 09:20 HX of Motion [...] 12/17/23 12:56 Respiratory Assessment Respiratory Assessment - relationship advisor: Respiratory Tract Infection Hx - relationship advisor Hx Respiratory Tract Infection No 02/07/25 09:20 STOP Sleep Apnea STOP Sleep Apnea - relationship advisor: STOP Sleep Apnea - relationship advisor Hx Hypertension No: HYPOTENSION 02/07/25 09:20 Hx [...] Tobacco Use History Tobacco Use History - relationship advisor: Tobacco Use History - relationship advisor Tobacco Use Cigarettes 07/19/21 08:09 Smoking Status Current every day smoker 02/07/25 09:20 Hx Tobacco Use Yes 02/07/25 09:20 Years Smoking Packs Smoked per Day Smoking Cessation Date was within the last 15 years Hx Smoking Cessation Date Hx Smoking Cessation Counseling Hematologic Medial History Hematologic Hx - relationship advisor: Hematologic Medical Hx - pipe buffer Hx of Blood Transfusion No 02/07/25 09:20 [...] confused, unrespo /Reproduction History /Reproductive History - relationship advisor: /Reproductive Hx- relationship advisor Hx Now No 02/07/25 09:20 Gestational Age [...] Q4H P (more content not included)... Normal [facility] Magnesiumon 02-07-2025 Magnesium [Mass/Vol] 2.2 mg/dL Normal 1.5-2.2 [facility] Comment on above: Performed By: #### L 501.5207 ####[facility] [address] [place], [address] Magnesium measurement (mass/ volume)Ordered By: Saul Vaca on 02-07-2025 Magnesium (Unsp spec) [Mass/Vol] 2.2 mg/dL 1.5-2.2 [facility] Nicotine Screen Bloodon 01-09 COTININE BLOOD 188.7 ng/mL Normal . [facility] Comment on above: Result Comment: This test was developed and its performance characteristics determined by [facility] [place]. It has not been cleared or approved by the Food and Drug Administration. Cotinine levels greater than 20.0 are consistent with the use of tobacco or tobacco cessation products. Performed at: [address] [id number] [employer]: Natacha Hays MD, Phone: [phone] Performed By: #### L 3600.3400, L501.9985, L3410.9992 ####[facility] [address] [place], [address] NICOTINE BLOOD 10.3 ng/mL Normal . [facility] Comment on above: Result Comment: This test was developed and its performance characteristics determined by [employer]. It has not been cleared or approved by the Food and Drug Administration. Nicotine levels greater than 2.0 are consistent with the use of tobacco or tobacco cessation products. Performed By: #### L 3600.3400, L501.9985, L3410.9992 ####[facility] [address] [place], [address] L3410.9992on 01-23-[address] Normal . [facility] Comment on above: Order Comment: [id number] Result Comment: Test Ordered: [id number] 25-Hydroxyvitamin D LCMS D2+D3 25-Hydroxy, Vitamin D 16 [L ] ng/mL ES Reference Range: . Reference Range: All Ages: Target levels 30 - 100 25-Hydroxy, Vitamin D-2 <1.0 ng/mL ES Reference Range: . This test was developed and its performance characteristics determined by [employer]. It has not been cleared or approved by the Food and Drug Administration. 25-Hydroxy, Vitamin D-3 15 ng/mL ES Reference Range: . This test was developed and its performance characteristics determined by [facility]. It has not been cleared or approved by the Food and Drug Administration. Performed at: [employer] [facility] [employer] [address] [place] [id number] [employer]: Cristino Singleton MD, Phone: [phone] Performed at: [facility] [address] [id number] [employer]: Miguel Benton PhD, Phone: [phone] Performed By: #### L 3600.3400, L501.9985, L3410.9992 ####[facility] [address] [place], [place], [id number] Hemoglobin A1con 01-18-2025 HbA1c (Bld) [Mass fraction] 5.5 % Normal <=5.6 [facility] Comment on above: Result Comment: Norm al < 5.7 % Prediabetic 5.7 - 6.4 % Diabetic >or= 6.5 % Please note range changes. Performed By: #### L 3600.3400, L501.9985, L3410.9992 ####[facility] [address] [place], [place], [address] Hemoglobin A1c percentageon 01-18-2025 HbA1c (Bld) [Mass fraction] 5.5 % <5.7 [facility] Comment on above: Normal < 5.7 % Predi abetic 5.7 - 6.4 % Diabetic >or= 6.5 % Please note range changes. Serum or plasma nicotine barbara surement (mass/volume)on 01-18-2025 Nicotine [Mass/Vol] 10.3 ug/mL . [facility] Comment on above: This test was develo ped and its performance characteristicsdetermined by [facility]. It has not been cleared orapproved by the Food and Drug Administration.Nicotine levels greater than 2.0 are consistent with theuse of tobacco or tobacco cessation products. Echo Completeon 12-23-2024 Echo Complete [facility] [address] [place] [address] Echo Complete 12/23/24 1302 MR#: [id number] Acct: [id number] Name: DARWIN PORTILLO Rep #: [id number] : 1965 59 From: Kam Fonseca MD Attending Dr: Dr. Ginna Kowalski MD Status: REG CLI Ordering Dr: Ginna Kowalski MD Date: 12/23/24 Location: [facility] Sex: F C Admitted: Reason For Study [...] Ginna Kowalski Performed By: Hui Aguirre RDCS 12/23/241613 Date Kam Fonseca MD CC: Dr. Ginna Kowalski MD Date Dictated: 12/23/24 130 Date Transcribed: 12/23/241613 Internal Audit Manager: Signed Normal [facility] Echocardiogram study reportO rdered By: Kam Fonseca on 12-23-2024 Study report [facility] [address] [place] [place] [address] Echo Complete 12/23/24 1302 MR#: [id number] Acct: [id number] Name: DARWIN PORTILLO Rep #:[id number] : 1965 59 From: Kam Pena Attending Dr: Dr. Ginna Kowalski MD Status: REG [facility] Ordering Dr: Ginna Kowalski MD Date: 0 12/23/24 Location: [facility] Sex: F C Admitted: Reason For Study [...] Kowalski Performed By: Hui Aguirre RDCS 12/23/24 1619 Date _ Kam Fonseca MD CC: Dr. Ginna Kowalski MD ~ Date Dictated: 12/23/24 1302 Date Transcribed: 12/23/24 161 Internal Audit Manager: Signed [facility] Work Phone: Lower Ext Joint Only (Routin e)on 12-19-2024 Lower Ext Joint Only (Routine) [facility] Imaging Services [address] [place], [place] [address] [place] [address] Lower Ext Joint Only (Routine) MR#: [id number] Acct: [id number] Name: DARWIN PORTILLO Rep #: [id number] : 1965 F 59 From: Garcia Issa i DO PCP: Dr. Ginna Kowalski MD Status: REG CLI Study: Lower Ext Joint Only (Routine) Date of Exam: 0 12/19/24 Exam# [id number] Ordering Dr: Markel Leyva DPM EXAM: Noncontrast [...] the sequela of prior trauma. [facility] CC: DPM Dr. Markel Leyva; Dr. Ginna Kowalski MD Internal Audit Manager: Signed Normal [facility] Magnetic resonance imaging r eportOrdered By: Garcia Tapan on 12-19-2024 Study report [facility] Imaging Services [address] [address] Lower Ext Joint Only (Routine) MR#: [id number] Acct: [id number] Name: DARWIN PORTILLO Rep #: [id number] : 1965 F 59 From: Aamir Phelan DO PCP: Dr. iGnna Kowalski MD Status: REG CLI Study:Lower Ext Joint Only (Routine) Date of Exam: 12/19/24 Exam# [id number] Ordering Dr: Alvarado Leyva DPJudy EXAM: Noncontrast MRI of the left ankle. [...] ALBERTO Leyva; Dr. Ginna Kowalski MD ~ Internal Audit Manager: Signed [facility] Foot min 3 Viewson 4 Foot min 3 Views [facility] Imaging Services [address] [place] [id number] Foot min 3 Views MR#: [id number] Acct: [id number] Name: DARWIN PORTILLO Rep #: [id number] : 1965 F 59 From: Mario Small DO PCP: Dr. Ginna Kowalski MD Status: REG CLI Study: Foot min 3 Views Date of Exam: 07/22/24 Exam# [id number] Ordering Dr: Ginna Kowalski MD [id number] INDICATION: LEFT FOOT SPUR EXAMINATION/TECHNIQUE: X-RAY - [...] EST , CC: Dr. Ginna Kowalski MD Internal Audit Manager: Signed Normal [facility] HIP, UNI W/ Pelvis 2-3 Views on 07-22-2024 HIP, UNI W/ Pelvis 2-3 Views [facility] Imaging Services [address] [place], [place] [address] HIP, UNI W/ Pelvis 2-3 Views MR#: [id number] Acct: [id number] Name: DARWIN PORTILLO Rep #: [id number] : 1965 F 59 From: Mario Small DO PCP: Dr. Ginna Kowalski MD Status: REG CL Study: HIP, UNI W/ Pelvis 2-3 Views Date of Exam: 08/04 Exam# [id number] Ordering Dr: Ginna Kowalski MD [id number] INDICATION: LEFT HIP PAIN, ABNORMAL GAIT EXAMINATION/TECHNIQUE: [...] EST , CC: Dr. Ginna Kowalski MD Internal Audit Manager: Signed Normal [facility] Absolute lymphocyte countOrd ered By: Panda Young on 12-16-2023 Lymphocytes Auto (Unsp spec) [#/Vol] 1.86 10*3/uL 0.83-4.51 [facility] Automated lymphocyte count a s percentage of total leukocytesOrdered By: Panda Young on 12-16-2023 Lymphocytes/100 WBC Auto (Unsp spec) 35.5 % 19-41 [facility] Basophil percentageOrdered B y: Panda Young on 12-16-2023 Basophils/100 WBC (Bld) 0.6 % 0-1 [facility] Chloride [Moles/Vol] 111 mmol/L 98-107 [facility] Eosinophils/100 WBC (Bld) 1.9 % 0-5 [facility] Glucose [Mass/Vol] 98 mg/dL 74-106 [facility] Hemoglobin (Bld) [Mass/Vol] 13.2 g/dL 12.0-15.0 [facility] Monocytes/100 WBC (Bld) 8.8 % 0-10 [facility] Neutrophils (Bld) [#/Vol] 2.8 10*3/uL 2.0-7.7 [facility] Neutrophils/100 WBC (Bld) 53.0 % 47-70 [facility] Potassium [Moles/Vol] 3.9 mmol/L 3.5-5.1 [facility] Sodium [Moles/Vol] 140 mmol/L 136-145 [facility] WBC (Bld) [#/Vol] 5.2 10*3/uL 4.4-11.0 [facility] Determination of erythrocyte mean corpuscular volume (MCV)Ordered By: Panda Young on 12-16-2023 MCV (RBC) [Entitic vol] 94.1 fL 81-99 [facility] Erythrocyte distribution wid th ratioOrdered By: Panda Young on 12-16-2023 Erythrocyte distribution width (RBC) [Ratio] 12.5 % 11.6-14.6 [facility] Erythrocyte distribution wid th standard deviationOrdered By: Panda Young on 12-16-2023 Erythrocyte distribution width (RBC) [Entitic vol] 43.1 fL 35.1-43.9 [facility] Hematocrit Auto (Bld) [Volum e fraction]Ordered By: Panda Young on 12-16-2023 Hematocrit (Bld) [Volume fraction] 39.6 % 37-47 [facility] Immature granulocytes/100 WB C Auto (Bld)Ordered By: Panda Young on 12-16-2023 Immature granulocytes/100 WBC (Bld) 0.200 % 0.0-0.9 [facility] Comment on above: IG% - Immature Granu locytes (promyelocytes, myelocytes and metamyelocytes) > 1% indicates that a LEFT SHIFT is Present. Laboratory - Chemistry and C hemistry - challengeOrdered By: Panda Young on 12-16-2023 CO2 [Moles/Vol] 25.0 mmol/L 21.0-32.0 [facility] Urea nitrogen/Creatinine [Mass ratio] 20.4 mg/mg 10-20 [facility] Laboratory - Hematology and Cell countsOrdered By: Panda Young on 12-16-2023 MCH (RBC) [Entitic mass] 31.4 pg 27.0-32.0 [facility] MCHC (RBC) [Mass/Vol] 33.3 g/dL 32-36 [facility] Nucleated RBC/100 WBC (Bld) [Ratio] 0 % 0-5 [facility] Platelet mean volume (Bld) [Entitic vol] 9.4 fL 6.2-12.0 [facility] Platelets (Bld) [#/Vol] 266 10*3/uL 150-450 [facility] No Panel InformationOrdered By: Panda Young on 12-16-2023 Estimated Creatinine Clearance Calc 111.96 ml/min [facility] Estimated GFR (MDRD) Amer 123 mL/min >60 [facility] Comment on above: GFR Calc Estimated GFR (MDRD) Non-Af Amer 102 mL/min >60 [facility] Comment on above: Non- GFR Calc RBC Auto (Bld) [#/Vol]Ordere d By: Panda Young on 12-16-2023 RBC (Bld) [#/Vol] 4.21 10*6/uL 4.2-5.4 [facility] Serum or plasma calcium laura urement (mass/volume)Ordered By: Panda Young on 12-16-2023 Calcium [Mass/Vol] 8.7 mg/dL 8.5-10.1 [facility] Serum or plasma creatinine m easurement (mass/volume)Ordered By: Panda Young on 12-16-2023 Creatinine [Mass/Vol] 0.64 mg/dL 0.55-1.02 [facility] Comment on above: The validity of the calculated GFR & GFRAA in patients over 70 years has not been determined. Clinical correlation is essential. Serum or plasma urea nitroge n measurement (mass/volume)Ordered By: Panda Young on 12-16-2023 Urea nitrogen [Mass/Vol] 13 mg/dL 7-18 [facility] Thin prep Papanicolaou smear with manual screeningOrdered By: Panda Young on 12-16-2023 Thin prep Papanicolaou smear with manual screening 4 5-15 [facility] Absolute lymphocyte countOrd ered By: Sol Shirley on 06-21-2023 Lymphocytes Auto (Unsp spec) [#/Vol] 2.71 10*3/uL 0.83-4.51 [facility] Basophil percentageOrdered B y: Sol Shirley on 06-21-2023 Basophil percentage 0 SEEN /hpf 0-5 [facility] Basophils/100 WBC (Bld) 1.2 % 0-1 [facility] Bilirubin [Mass/Vol] 0.20 mg/dL 0.20-1.00 [facility] Comment on above: For patients on eltr ombopag therapy, use of [employer] TBIL is not recommended. Chloride [Moles/Vol] 112 mmol/L 98-107 [facility] Eosinophils/100 WBC (Bld) 1.6 % 0-5 [facility] Glucose [Mass/Vol] 120 mg/dL 74-106 [facility] Comment on above: Fasting Glucose resu lt from 100 to 125 mg/dL suggests IMPAIRED HOMEOSTASIS per A.D.A. criteria. Neutrophils (Bld) [#/Vol] 3.4 10*3/uL 2.0-7.7 [facility] Neutrophils/100 WBC (Bld) 49.7 % 47-70 [facility] Potassium [Moles/Vol] 3.6 mmol/L 3.5-5.1 [facility] Protein [Mass/Vol] 7.4 g/dL 6.4-8.2 [facility] Sodium [Moles/Vol] 141 mmol/L 136-145 [facility] WBC (Bld) [#/Vol] 6.8 10*3/uL 4.4-11.0 [facility] Bilirubin Test strip Ql (U)O rdered By: Sol Shirley on 06-21-2023 Bilirubin Ql (U) Negative Negative [facility] Blood erythrocytes count (nu mber/volume)Ordered By: Sol Shirley on 06-21-2023 RBC (Bld) [#/Vol] 4.75 10*6/uL 4.2-5.4 [facility] Blood hemoglobin measurement (mass/volume)Ordered By: Sol Shirley on 06-21-2023 Hemoglobin (Bld) [Mass/Vol] 14.9 g/dL 12.0-15.0 [facility] Blood lymphocytes/100 leukoc ytesOrdered By: Sol Shirley on 06-21-2023 Lymphocytes/100 WBC (Bld) 39.9 % 19-41 [facility] Blood monocytes/100 leukocyt esOrdered By: Sol Shirley on 06-21-2023 Monocytes/100 WBC (Bld) 7.5 % 0-10 [facility] Blood platelet mean volumeOr dered By: Sol Shirley on 06-21-2023 Platelet mean volume (Bld) [Entitic vol] 9.1 fL 6.2-12.0 [facility] Calcium oxalate crystals det ection in urine sediment by light microscopyOrdered By: Sol Shirley on 06-21-2023 Calcium oxalate crystals LM Ql (Urine sed) 2+ /hpf [facility] Determination of erythrocyte mean corpuscular volume (MCV)Ordered By: Sol Shirley on 06-21-2023 MCV (RBC) [Entitic vol] 95.6 fL 81-99 [facility] Direct bilirubinOrdered By: Sol Shirley on 06-21-2023 Bilirubin.direct [Mass/Vol] 0.07 mg/dL 0.00-0.30 [facility] Hematocrit Auto (Bld) [Volum e fraction]Ordered By: Sol Shirley on 06-21-2023 Hematocrit (Bld) [Volume fraction] 45.4 % 37-47 [facility] Ketones Test strip Ql (U)Ord ered By: Sol Shirley on 06-21-2023 Ketones Ql (U) Negative Negative [facility] Laboratory - Chemistry and C hemistry - challengeOrdered By: Sol Shirley on 06-21-2023 ALP [Catalytic activity/Vol] 85 U/L 45-117 [facility] ALT [Catalytic activity/Vol] 28 U/L 13-56 [facility] CO2 [Moles/Vol] 26.0 mmol/L 21.0-32.0 [facility] Globulin (S) [Mass/Vol] 4.0 g/dL 2.2-4.2 [facility] Urea nitrogen/Creatinine [Mass ratio] 19.7 mg/mg 10-20 [facility] Laboratory - Hematology and Cell countsOrdered By: Sol Shirley on 06-21-2023 Erythrocyte distribution width (RBC) [Entitic vol] 44.2 fL 35.1-43.9 [facility] Erythrocyte distribution width (RBC) [Ratio] 12.6 % 11.6-14.6 [facility] Immature granulocytes/100 WBC (Bld) 0.100 % 0.0-0.9 [facility] Comment on above: IG% - Immature Granu locytes (promyelocytes, myelocytes and metamyelocytes) > 1% indicates that a LEFT SHIFT is Present. MCH (RBC) [Entitic mass] 31.4 pg 27.0-32.0 [facility] Nucleated RBC/100 WBC (Bld) [Ratio] 0 % 0-5 [facility] MCHC Auto (RBC) [Mass/Vol]Or dered By: Sol Shirley on 06-21-2023 MCHC (RBC) [Mass/Vol] 32.8 g/dL 32-36 [facility] Mucus LM Ql (Urine sed)Order ed By: Sol Shirley on 06-21-2023 Mucus Ql (Urine sed) 0 SEEN /hpf [facility] Nitrite Test strip Ql (U)Ord ered By: Sol Shirley on 06-21-2023 Nitrite Ql (U) Negative Negative [facility] No Panel InformationOrdered By: Sol Shirley on 06-21-2023 Estimated Creatinine Clearance Calc 86.98 ml/min [facility] Estimated GFR (MDRD) Amer 118 mL/min >60 [facility] Comment on above: GFR Calc Estimated GFR (MDRD) Non-Af Amer 98 mL/min >60 [facility] Comment on above: Non- GFR Calc Platelets bldOrdered By: Johanna Shirley on 06-21-2023 Platelets (Bld) [#/Vol] 319 10*3/uL 150-450 [facility] Protein Test strip Ql (U)Ord ered By: Sol Shirley on 06-21-2023 Protein Ql (U) 15 mg/dl Negative [facility] Serum or plasma albumin laura urement (mass/volume)Ordered By: Sol Shirley on 06-21-2023 Albumin [Mass/Vol] 3.4 g/dL 3.2-5.0 [facility] Serum or plasma calcium laura urement (mass/volume)Ordered By: Sol Shirley on 06-21-2023 Calcium [Mass/Vol] 9.0 mg/dL 8.5-10.1 [facility] Serum or plasma creatinine m easurement (mass/volume)Ordered By: Sol Shirley on 06-21-2023 Creatinine [Mass/Vol] 0.66 mg/dL 0.55-1.02 [facility] Comment on above: The validity of the calculated GFR & GFRAA in patients over 70 years has not been determined. Clinical correlation is essential. Serum or plasma urea nitroge n measurement (mass/volume)Ordered By: Sol Shirley on 06-21-2023 Urea nitrogen [Mass/Vol] 13 mg/dL 7-18 [facility] Squamous epithelial cells de tection in urine sediment by light microscopyOrdered By: Sol Shirley on 06-21-2023 Epithelial cells.squamous LM Ql (Urine sed) 0-5 SEEN /hpf 5-10 [facility] Thin prep Papanicolaou smear with manual screeningOrdered By: Sol Shirley on 06-21-2023 Thin prep Papanicolaou smear with manual screening 9 U/L 15-37 [facility] Thin prep Papanicolaou smear with manual screening 3 5-15 [facility] Urine blood detectionOrdered By: Sol Shirley on 06-21-2023 RBC Ql (U) 10 /ul Negative [facility] RBC Ql (U) 0 SEEN /hpf 0-5 [facility] Urine clarityOrdered By: Johanna Shirley on 06-21-2023 Clarity (U) Clear Clear [facility] Urine color determinationOrd ered By: Sol Shirley on 06-21-2023 Color (U) Yellow Yellow [facility] Urine glucose detectionOrder ed By: Sol Shirley on 06-21-2023 Glucose Ql (U) Normal mg/dl Normal [facility] Urine leukocyte esterase det ection by dipstickOrdered By: Sol Shirley on 06-21-2023 Leukocyte esterase Test strip Ql (U) 25 /ul Negative [facility] Urine pHOrdered By: Sol Shirley on 06-21-2023 pH (U) 6.0 [pH] 5.0 - 8.0 [facility] Urine sediment bacteria coun t by microscopy (number/high power field)Ordered By: Sol Shirley on 06-21-2023 Bacteria LM.HPF (Urine sed) [#/Area] 0 /[HPF] None Seen [facility] Urine specific gravity measu rementOrdered By: Sol Shirley on 06-21-2023 Specific gravity (U) [Rel density] 1.020 1.002-1.03 0 [facility] Urobilinogen Auto test strip Ql (U)Ordered By: Sol Shirley on 06-21-2023 Urobilinogen Ql (U) Normal mg/dl Normal [facility] Laboratory - Microbiology an d Antimicrobial susceptibilityon 04-21-2022 SARS-CoV-2 (COVID-19) RNA CONSUELO+probe Ql (Unsp spec) Detected [facility] Work Phone: CNOVon 12-21-2018 CNOV Office Visit (WENDI ) -- DARWIN PORTILLO ([id number]) 1965 F Date Time Provider Department 12/21/18 [...] Age: [age] year old Sex: female MRN/E# [id number] Chief Complaint: Patient presents with: Back Pain: [...] upper or lower extremities proximally and distally. 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 No spasticity or tremor Reflexes [...] 4V AP/LAT/ FLEX/EXT; Future MD Ijeoma Orona APRN.CRYPTOLOGIC SUPPORT SPECIALIST 12/21/2018 1:19 PM Signed Addended by: IJEOMA [facility] on: 12/21/2018 01:19 PM Modules accepted: Orders Referring Provider: CARA PATEL [[id number]] Allergies As of Date: 12/21/2018 Noted Allergy [...] Status:Closed by SHAYY ELIZABETH MD on 12/21/18 [facility] PROGRESSon 12-21-2018 Protein mass conc HNO ID: [id number] Author: Shayy Elizabeth Service: ? Author Type: Physician Type: Progress Notes Filed: 12/21/2018 1:12 PM Note Text: NEUROSURGERY CONSULT NOTE Shayy Elizabeth MD Date of visit: December 20, 2018 Patient Name: Ms.Joanne Portillo Date of : 1965 Current Age: [age] year old Sex: female MRN/E# [id number] Chief Complaint: Patient presents with: Back Pain: [...] upper or lower extremities proximally and distally. 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 No spasticity or tremor Reflexes [...] 4V AP/LAT/ FLEX/EXT; Future Shayy Elizabeth MD Normal [facility] Office Visiton 07-20-2017 Alcoholism counseling (procedure) no Invalid Interpretation Code [facility] Work Phone: Documentation of current medications (procedure) Done Invalid Interpretation Code [facility] Work Phone: [phone] Smoking cessation education (procedure) yes Invalid Interpretation Code [facility] Work Phone: [phone] Tobacco use [facility] Current every day smoker Invali d Interpretation Code [facility] Work Phone: [phone] Office Visiton 07-14-2017 Alcoholism counseling (procedure) no Invalid Interpretation Code [facility] Work Phone: [phone] Documentation of current medications (procedure) Done Invalid Interpretation Code [facility] Work Phone: [phone] Smoking cessation education (procedure) yes Invalid Interpretation Code [facility] Work Phone: [phone] Tobacco use [facility] Current every day smoker Invali d Interpretation Code [facility] Work Phone: [phone] Office Visiton 07-04-2017 Protein mass conc Done Invalid Interpretation Code [facility] Work Phone: [phone] Protein mass conc no Invalid Interpretation Code [facility] Work Phone: [phone] Protein mass conc yes Invalid Interpretation Code [facility] Work Phone: [phone] Tobacco smoking status NHIS Current every day smoker Invalid Interpretation Code [facility] Work Phone: [phone] Office Visiton 06-29-2017 Alcoholism counseling (procedure) no Invalid Interpretation Code [facility] Work Phone: [phone] Documentation of current medications (procedure) Done Invalid Interpretation Code [facility] Work Phone: [phone] Smoking cessation education (procedure) yes Invalid Interpretation Code [facility] Work Phone: [phone] Tobacco use CPHS Current every day smoker Invali d Interpretation Code [facility] Work Phone: [phone] Office Visiton 06-09-2017 Alcoholism counseling (procedure) no Invalid Interpretation Code [facility] Work Phone: [phone] Documentation of current medications (procedure) Done Invalid Interpretation Code [facility] Work Phone: [phone] Smoking cessation education (procedure) yes Invalid Interpretation Code [facility] Work Phone: [phone] Tobacco use CPHS Current every day smoker Invali d Interpretation Code [facility] Work Phone: [phone] Office Visiton 04-27-2017 Alcoholism counseling (procedure) no Invalid Interpretation Code [facility] Work Phone: [phone] Documentation of current medications (procedure) Done Invalid Interpretation Code [facility] Work Phone: [phone] Protein mass conc [facility] Work Phone: [phone] Protein mass conc Done [facility] Work Phone: [phone] Protein mass conc yes [facility] Work Phone: [phone] Smoking cessation education (procedure) yes Invalid Interpretation Code [facility] Work Phone: [phone] Tobacco smoking status NHIS Current every day smoker [facility] Work Phone: [phone] Tobacco use CPHS Current every day smoker Invali d Interpretation Code [facility] Work Phone: [phone] Office Visiton 04-13-2017 Alcoholism counseling (procedure) no Invalid Interpretation Code [facility] Work Phone: [phone] Documentation of current medications (procedure) Done Invalid Interpretation Code [facility] Work Phone: [phone] Protein mass conc no [facility] Work Phone: [phone] Protein mass conc Done [facility] Work Phone: [phone] Protein mass conc yes [facility] Work Phone: [phone] Smoking cessation education (procedure) yes Invalid Interpretation Code [facility] Work Phone: [phone] Tobacco smoking status NHIS Current every day smoker [facility] Work Phone: [phone] Tobacco use CPHS Current every day smoker Invali d Interpretation Code [facility] Work Phone: [phone] Office Visiton 03-10-2017 Protein mass conc no [facility] Work Phone: [phone] Protein mass conc Done [facility] Work Phone: [phone] Protein mass conc yes [facility] Work Phone: [phone] Tobacco smoking status NHIS Current every day smoker [facility] Work Phone: [phone] Office Visiton 02-17-2017 Alcoholism counseling (procedure) no Invalid Interpretation Code [facility] Work Phone: [phone] Documentation of current medications (procedure) Done Invalid Interpretation Code [facility] Work Phone: [phone] Protein mass conc no [facility] Work Phone: [phone] Protein mass conc Done [facility] Work Phone: [phone] Protein mass conc yes [facility] Work Phone: [phone] Smoking cessation education (procedure) yes Invalid Interpretation Code [facility] Work Phone: [phone] Tobacco smoking status NHIS Current every day smoker [facility] Work Phone: [phone] Tobacco use CPHS Current every day smoker Invali d Interpretation Code [facility] Work Phone: [phone] Microbiology: Culture, Body Fluidon 01-31-2017 body fluid culture . Invalid Interpretation Code [facility] Work Phone: [phone] CUBF . Invalid Interpretation Code [facility] Work Phone: [phone] Microbiology: (P) Culture, B laura Fluidon 01-29-2017 body fluid culture . Invalid Interpretation Code [facility] Work Phone: [phone] Microbiology: (P) Culture, B laura Fluidon 01-25-2017 body fluid culture . Invalid Interpretation Code [facility] Work Phone: [phone] Microbiology: (P) Culture, B laura Fluidon 01-24-2017 body fluid culture . Invalid Interpretation Code [facility] Work Phone: [phone] Lab Report: GLUCOSE, SYNOVIA L FLUIDon 01-20-2017 GE use only - for [employer] import when terms are not otherwise specified 97 mg/dL Invalid Interpretation Code . [facility] Work Phone: [phone] GLU, SYN FLD 97 mg/dL Invalid Interpretation Code . [facility] Work Phone: [phone] Microbiology: (P) Culture, B laura Fluidon 01-20-2017 body fluid culture . Invalid Interpretation Code [facility] Work Phone: [phone] body fluid culture Cult, AnaerobicNo gr owth in 48 hours. Invalid Interpretation Code [facility] Work Phone: [phone] Microbiology: (P) Culture, B laura Fluidon 2017 body fluid culture . Invalid Interpretation Code [facility] Work Phone: [phone] Replaced Document: (P) Cultu re, Body Fluidon 01-18-2017 body fluid culture . Invalid Interpretation Code [facility] Work Phone: [phone] Lab Report: (P) Synovial Flu id RBC, WBC AND Diffon 01-17-2017 Cell Count, Synovial Fluid 0.3630 10 3 uL High 0.000-0.00 0 [facility] Work Phone: [phone] mononuclear cells, synovial fluid as percent of leukocytes 70.5 % Invalid Interpretation Code [facility] Work Phone: [phone] neutrophils, polymorphonuclear as percent of synovial fluid leukocytes 29.5 % Invalid Interpretation Code [facility] Work Phone: [phone] SYBF MN WBC% 70.5 % Invalid Interpretation Code [facility] Work Phone: [phone] SYBF PMN WBC% 29.5 % Invalid Interpretation Code [facility] Work Phone: [phone] 0.3630 10 3 uL High 0.000-0.00 0 [facility] Work Phone: [phone] SYNOVIAL WBC 0.3490 10 3UL High 0.000-0.00 2 [facility] Work Phone: [phone] WBC, Fluid 0.3490 10 3UL High 0.000-0.00 2 [facility] Work Phone: [phone] Lab Report: Crystals, Body F luidon 01-17-2017 PATH REV Will follow Invalid Interpretation Code [facility] Work Phone: [phone] Pathology comment Will follow Invalid Interpretation Code [facility] Work Phone: [phone] Lab Report: Synovial Fluid R BC, WBC AND Diffon 01-17-2017 Erythrocytes (RBC) 0.0001 10*6/uL High 0 [facility] Work Phone: [phone] SYNOVIAL RBC 99 /uL High 0 [facility] Work Phone: [phone] Office Visiton 01-17-2017 Alcoholism counseling (procedure) no Invalid Interpretation Code [facility] Work Phone: [phone] Documentation of current medications (procedure) Done Invalid Interpretation Code [facility] Work Phone: [phone] Smoking cessation education (procedure) yes Invalid Interpretation Code [facility] Work Phone: [phone] Tobacco use CPHS Current every day smoker Invali d Interpretation Code [facility] Work Phone: [phone] Replaced Document: Crystals, Body Fluidon 01-17-2017 crystals, body fluid SYNOVIAL Invalid Interpretation Code [facility] Work Phone: [phone] CRYSTALS/BF SYNOVIAL Invalid Interpretation Code [facility] Work Phone: [phone] Replaced Document: Synovial Fluid RBC, WBC AND Diffon 01-17-2017 Lymphocytes/100 leukocytes 5 % Invalid Interpretation Code [facility] Work Phone: [phone] Lymphocytes/100 WBC (Bld) 5 % [facility] Work Phone: [phone] Monocytes 21 % Invalid Interpretation Code [facility] Work Phone: [phone] Monocytes #/vol (Bld) 21 % [facility] Work Phone: [phone] NEUTROPHIL 5 % Invalid Interpretation Code 0 [facility] Work Phone: [phone] neutrophils as percent of body fluid leukocytes 5 % Invalid Interpretation Code 025 [facility] Work Phone: [phone] OTHER CELL /SYN 69 % Invalid Interpretation Code [facility] Work Phone: [phone] other Cells 69 % Invalid Interpretation Code [facility] Work Phone: [phone] appearance, body fluid Sl Cl Invalid Interpretation Code CLEAR [facility] Work Phone: [phone] Body Fluid Total Volume 12.0 mL High 0.1-3.5 [facility] Work Phone: [phone] body fluids, viscosity Sl. Viscous Invalid Interpretation Code HIGH [facility] Work Phone: [phone] color, synovial fluid Yellow Invalid Interpretation Code Pale Yellow [facility] Work Phone: [phone] GE use only - for [employer] import when terms are not otherwise specified May follow Invalid Interpretation Code [facility] Work Phone: [phone] source of sample KNEE Invalid Interpretation Code [facility] Work Phone: [phone] SYNOVIAL COLOR Yellow Invalid Interpretation Code Pale Yellow [facility] Work Phone: [phone] SYNOVIAL SOURCE KNEE Invalid Interpretation Code [facility] Work Phone: [phone] SYNOVIAL TV 12.0 mL High 0.1-3.5 [facility] Work Phone: [phone] VISCOSITY/SYFL Sl. Viscous Invalid Interpretation Code HIGH [facility] Work Phone: [phone] Lab Report: CBC, Employeeon 04-15-2016 Absolute Neut 2.1 X10 3/UL Invalid Interpretation Code 2.0-7.7 [facility] Work Phone: [phone] Basophils/100 leukocytes 0.5 % Invalid Interpretation Code 0-1 [facility] Work Phone: [phone] Basophils/100 WBC (Bld) 0.5 % 0-1 [facility] Work Phone: [phone] Eosinophils/100 leukocytes 3.2 % Invalid Interpretation Code 0-5 [facility] Work Phone: [phone] Eosinophils/100 WBC (Bld) 3.2 % 0-5 [facility] Work Phone: [phone] Erythrocyte distribution width Auto Ratio (RBC) 45.5 fL High 35.1-43.9 [facility] Work Phone: [phone] Erythrocyte distribution width Ratio (RBC) 45.5 fL High 35.1-43.9 [facility] Work Phone: [phone] Erythrocyte distribution width Ratio (RBC) 12.9 % 11.6-14.6 [facility] Work Phone: [phone] Erythrocytes (RBC) 3.91 10*6/uL Low 4.2-5.4 [facility] Work Phone: [phone] Hematocrit (HCT) 38.8 % Invalid Interpretation Code 37-47 [facility] Work Phone: [phone] Hematocrit Volume Fraction (Bld) 38.8 % 37-47 [facility] Work Phone: [phone] Hemoglobin (HGB) 12.7 g/dL Invalid Interpretation Code 12.0-15.0 [facility] Work Phone: [phone] Lymphocytes 1.75 X10 3/UL Invalid Interpretation Code 0.83-4.51 [facility] Work Phone: [phone] Lymphocytes #/vol (Bld) 1.75 X10 3/UL 0.83-4.51 [facility] Work Phone: [phone] Lymphocytes/100 leukocytes 39.6 % Invalid Interpretation Code 1941 [facility] Work Phone: [phone] Lymphocytes/100 WBC (Bld) 39.6 % [facility] Work Phone: [phone] MCH 32.5 pg High 27.0-32.0 [facility] Work Phone: [phone] MCH Entitic mass (RBC) 32.5 pg High 27.0-32.0 [facility] Work Phone: [phone] MCHC 32.7 G/GL Invalid Interpretation Code 3236 [facility] Work Phone: [phone] MCHC mass conc (RBC) 32.7 G/GL 32-36 [facility] Work Phone: [phone] MCV 99.2 fL High 81-99 [facility] Work Phone: [phone] MCV Entitic volume (RBC) 99.2 fL High 81-99 [facility] Work Phone: [phone] Monocytes/100 leukocytes 9.3 % Invalid Interpretation Code 0-10 [facility] Work Phone: [phone] Monocytes/100 WBC (Bld) 9.3 % 0-10 [facility] Work Phone: [phone] 0 neutrophil count, blood 2.1 X10 3/UL Invalid Interpretation Code 2.0-7.7 [facility] Work Phone: [phone] Neutrophils #/vol (Bld) 2.1 X10 3/UL 2.0-7.7 [facility] Work Phone: [phone] Neutrophils Auto #/vol (Bld) 2.1 X10 3/UL Invalid Interpretation Code 2.0-7.7 [facility] Work Phone: [phone] Neutrophils/100 leukocytes 47.4 % Invalid Interpretation Code 47-70 [facility] Work Phone: [phone] Neutrophils/100 WBC (Bld) 47.4 % 47-70 [facility] Work Phone: [phone] Platelet mean volume Entitic volume (Bld) 9.3 fL 6.2-12.0 [facility] Work Phone: [phone] Platelets 224 10*3/mm3 Invalid Interpretation Code 150-450 [facility] Work Phone: [phone] Platelets #/vol (Bld) 224 10*3/mm3 150-450 [facility] Work Phone: [phone] PMV by Michelle 9.3 fL Invalid Interpretation Code 6.2-12.0 [facility] Work Phone: [phone] RBC #/vol (Bld) 3.91 10*6/uL Low 4.2-5.4 [facility] Work Phone: [phone] RDW SD 45.5 fL High 35.1-43.9 [facility] Work Phone: [phone] RDW-CA 12.9 % Invalid Interpretation Code 11.6-14.6 [facility] Work Phone: [phone] red blood cell distribution width, size density 45.5 fL High 35.1-43.9 [facility] Work Phone: [phone] WBC #/vol (Bld) 4.4 10*3/uL 4.4-11.0 [facility] Work Phone: [phone] WBC (Leukocytes) 4.4 10*3/uL Invalid Interpretation Code 4.4-11.0 [facility] Work Phone: [phone] Lab Report: Employee Profile on 04-15-2016 Alanine aminotransferase (ALT) 42 U/L Invalid Interpretation Code 12-78 [facility] Work Phone: [phone] Albumin 3.2 g/dL Low 3.4-5.0 [facility] Work Phone: [phone] Albumin/Globulin Ratio 1 {ratio} Invalid Interpretation Code 0.9-2.4 [facility] Work Phone: [phone] Alkaline phosphatase (ALP) 72 U/L Invalid Interpretation Code 50-136 [facility] Work Phone: [phone] ALP enzyme act/vol (Bld) 72 U/L Invalid Interpretation Code 50-136 [facility] Work Phone: [phone] Anion gap 5 mmol/L Invalid Interpretation Code 5-15 [facility] Work Phone: [phone] Anion gap 4 molar conc 5 Invalid Interpretation Code 5-15 [facility] Work Phone: [phone] Anion gap molar conc 5 mmol/L 5-15 [facility] Work Phone: [phone] Aspartate aminotransferase (AST) 21 U/L Invalid Interpretation Code 15-37 [facility] Work Phone: [phone] Bilirubin (direct) 0.07 mg/dL Invalid Interpretation Code 0.00-0.30 [facility] Work Phone: [phone] Bilirubin (total) 0.20 mg/dL Invalid Interpretation Code 0.20-1.00 [facility] Work Phone: [phone] BUN/Creatinine Ratio 28.9 RATIO High 10-20 [facility] Work Phone: [phone] Calcium 8.2 mg/dL Low 8.5-10.1 [facility] Work Phone: [phone] Chloride 109 mmol/L High 98-107 [facility] Work Phone: [phone] Cholesterol 164 mg/dL Invalid Interpretation Code 200 [facility] Work Phone: [phone] CO2 30.0 mmol/L Invalid Interpretation Code 21.0-32.0 [facility] Work Phone: [phone] CO2 ppres (BldV) 30.0 mmol/L Invalid Interpretation Code 21.0-32.0 [facility] Work Phone: [phone] Creatinine 0.62 mg/dL Invalid Interpretation Code 0.55-1.20 [facility] Work Phone: [phone] eGFR (non-black) 130 mL/min/{1.73_m2} Invalid Interpretation Code >60 [facility] Work Phone: [phone] eGFR (non-black) 107 mL/min/{1.73_m2} Invalid Interpretation Code >60 [facility] Work Phone: [phone] EST GFR - AA 130 mL/min Invalid Interpretation Code >60 [facility] Work Phone: [phone] Globulin 3.1 g/dL Invalid Interpretation Code 2.3-3.5 [facility] Work Phone: [phone] Globulin mass conc (S) 3.1 g/dL 2.3-3.5 [facility] Work Phone: [phone] Glucose 87 mg/dL Invalid Interpretation Code 70-110 [facility] Work Phone: [phone] Glucose mass conc 87 mg/dL Invalid Interpretation Code 70-110 [facility] Work Phone: [phone] HDL Cholesterol 66 mg/dL Invalid Interpretation Code [facility] Work Phone: [phone] lactate dehydrogenase - serum 195 U/L Invalid Interpretation Code 84-246 [facility] Work Phone: [phone] LDH 195 U/L Invalid Interpretation Code 84-246 [facility] Work Phone: [phone] LDL Cholesterol 87 mg/dL Invalid Interpretation Code 0-130 [facility] Work Phone: [phone] PHOS 3.4 mg/dL Invalid Interpretation Code 2.5-4.9 [facility] Work Phone: [phone] Phosphorus Concentratation-Rando m 3.4 mg/dL Invalid Interpretation Code 2.5-4.9 [facility] Work Phone: [phone] Potassium 4.4 mmol/L Invalid Interpretation Code 3.5-5.1 [facility] Work Phone: [phone] Protein 6.3 g/dL Low 6.4-8.2 [facility] Work Phone: [phone] Sodium 144 mmol/L Invalid Interpretation Code 136-145 [facility] Work Phone: [phone] Triglyceride 53 mg/dL Invalid Interpretation Code [facility] Work Phone: [phone] Urate 3.9 mg/dL Invalid Interpretation Code 2.6-6.0 [facility] Work Phone: [phone] Urea nitrogen 18 mg/dL Invalid Interpretation Code 7-18 [facility] Work Phone: [phone] very low density lipoproteins 11 mg/dL Invalid Interpretation Code 5-40 [facility] Work Phone: [phone] Lab Report: Nicotine Urine D rug Screenon 04-15-2016 GE use only - for [employer] import when terms are not otherwise specified Positive High <200 ng/mL [facility] Work Phone: [phone] Lab Report: UrinalysisLoco 04-15-2016 Albumin Ql (U) Negative Invalid Interpretation Code Negative [facility] Work Phone: [phone] Bilirubin Ql (U) Negative Invalid Interpretation Code Negative [facility] Work Phone: [phone] Ketones mass conc (U) Negative Invalid Interpretation Code Negative [facility] Work Phone: [phone] NITRITE UR Negative Invalid Interpretation Code Negative [facility] Work Phone: [phone] Nitrite Urine Negative Invalid Interpretation Code Negative [facility] Work Phone: [phone] Occult Blood, urine Negative Invalid Interpretation Code Negative [facility] Work Phone: [phone] OCCULT BLOOD-UR Negative Invalid Interpretation Code Negative [facility] Work Phone: [phone] pH (U) 7.0 [pH] 5.0 - 8.0 [facility] Work Phone: [phone] specific gravity, urine 1.010 Invalid Interpretation Code 1.002-1.03 0 [facility] Work Phone: [phone] Urine, bilirubin presence Negative Invalid Interpretation Code Negative [facility] Work Phone: [phone] Urine, clarity Clear Invalid Interpretation Code Clear [facility] Work Phone: [phone] Urine, color Yellow Invalid Interpretation Code Yellow [facility] Work Phone: [phone] Urine, glucose presence Normal mg/dl Invalid Interpretation Code Normal [facility] Work Phone: [phone] Urine, ketones presence Negative Invalid Interpretation Code Negative [facility] Work Phone: [phone] Urine, leukocyte esterase presence Negative Invalid Interpretation Code Negative [facility] Work Phone: [phone] Urine, pH 7.0 [pH] Invalid Interpretation Code 5.0 - 8.0 [facility] Work Phone: [phone] Urine, protein Negative Invalid Interpretation Code Negative [facility] Work Phone: [phone] UROBILI Normal mg/dl Invalid Interpretation Code Normal [facility] Work Phone: [phone] urobilinogen, urine, by dipstick Normal mg/dl Invalid Interpretation Code Normal [facility] Work Phone: [phone] Clinical Lists Update: Prelo ward maid 09-16-2014 Breast Mammogram screening Normal Invalid Interpretation Code [facility] Work Phone: [phone] bone density, dual energy x-ray absorptiometry Normal bone Invalid Interpretation Code [facility] Work Phone: [phone] Vital Signs Date Time Vital Sign Value Performing Clinician Facility 05-08-2025 17:10-0400 Body mass index (BMI) [Ratio] 25.8 kg/m2 Dr. Ginna Kowalski MD Work Phone: [facility] 05-08-2025 17:10-0400 Body temperature 97.9 [degF] Dr. Ginna Kowalski MD Work Phone: [facility] 05-08-2025 17:10-0400 Body weight 72.[address] Ginna Kowalski MD Work Phone: [facility] 05-08-2025 17:10-0400 Diastolic blood pressure 77 mm[Hg] Dr. Ginna Kowalski MD Work Phone: [facility] 05-08-2025 17:10-0400 Heart rate 73 /min Dr. Ginna Kowalski MD Work Phone: [facility] 05-08-2025 17:10-0400 Respiratory rate 14 /min Dr. Ginna Kowalski MD Work Phone: [facility] 05-08-2025 17:10-0400 SaO2% (BldA) [Mass fraction] 99 % Dr. Ginna Kowalski MD Work Phone: [facility] 05-08-2025 17:10-0400 Systolic blood pressure 113 mm[Hg] Dr. Ginna Kowalski MD Work Phone: [facility] 05-08-2025 13:25-0400 Body height 167.[address] Ginna Kowalski MD Work Phone: [facility] 03-31-2025 17:09-0400 Body temperature 97.8 [degF] Dr. Ginna Kowalski MD Work Phone: [facility] 03-31-2025 17:09-0400 Diastolic blood pressure 65 mm[Hg] Dr. Ginna Kowalski MD Work Phone: [facility] 03-31-2025 17:09-0400 Heart rate 66 /min Dr. Ginna Kowalski MD Work Phone: [facility] 03-31-2025 17:09-0400 Respiratory rate 12 /min Dr. Ginna Kowalski MD Work Phone: [facility] 03-31-2025 17:09-0400 SaO2% (BldA) [Mass fraction] 98 % Dr. Ginna Kowalski MD Work Phone: [facility] 03-31-2025 17:09-0400 Systolic blood pressure 136 mm[Hg] Dr. Ginna Kowalski MD Work Phone: [facility] 03-31-2025 15:31-0400 Body height 167.[address] Ginna Kowalski MD Work Phone: [facility] 03-31-2025 15:31-0400 Body mass index (BMI) [Ratio] 33.3 kg/m2 Dr. Ginna Kowalski MD Work Phone: [facility] 03-31-2025 15:31-0400 Body weight 93.[address] Ginna Kowalski MD Work Phone: [facility] 02-21-2025 13:00-0400 Body temperature 97.4 [degF] Dr. Ginna Kowalski MD Work Phone: [facility] 02-21-2025 13:00-0400 Diastolic blood pressure 59 mm[Hg] Dr. Ginna Kowalski MD Work Phone: [facility] 02-21-2025 13:00-0400 Heart rate 62 /min Dr. Ginna Kowalski MD Work Phone: [facility] 02-21-2025 13:00-0400 Inhaled oxygen flow rate 4 L/min Dr. Ginna Kowalski MD Work Phone: [facility] 02-21-2025 13:00-0400 Respiratory rate 16 /min Dr. Ginna Kowalski MD Work Phone: [facility] 02-21-2025 13:00-0400 SaO2% (BldA) [Mass fraction] 99 % Dr. Ginna Kowalski MD Work Phone: [facility] 02-21-2025 13:00-0400 Systolic blood pressure 121 mm[Hg] Dr. Ginna Kowalski MD Work Phone: [facility] 02-21-2025 06:53-0400 Body height 167.[address] Ginna Kowalski MD Work Phone: [facility] 02-21-2025 06:53-0400 Body mass index (BMI) [Ratio] 32.7 kg/m2 Dr. Ginna Kowalski MD Work Phone: [facility] 02-21-2025 06:53-0400 Body weight [address] Ginna Kowalski MD Work Phone: [facility] 12-17-2023 20:58-0400 Body temperature 97 [degF] [facility] 12-17-2023 20:58-0400 Diastolic blood pressure 58 mm[Hg] [facility] 12-17-2023 20:58-0400 Heart rate 61 /min [facility] 12-17-2023 20:58-0400 Respiratory rate 16 /min [facility] 12-17-2023 20:58-0400 SaO2% (BldA) [Mass fraction] 94 % [facility] 12-17-2023 20:58-0400 Systolic blood pressure 146 mm[Hg] [facility] 12-17-2023 12:56-0400 Body height 167.64 cm [facility] 12-17-2023 12:56-0400 Body mass index (BMI) [Ratio] 32.4 kg/m2 [facility] 12-17-2023 12:56-0400 Body weight 91.17 kg [facility] 12-16-2023 12:00-0400 Body temperature 97.8 [degF] [facility] 12-16-2023 12:00-0400 Diastolic blood pressure 62 mm[Hg] [facility] 12-16-2023 12:00-0400 Heart rate 55 /min [facility] 12-16-2023 12:00-0400 Respiratory rate 16 /min [facility] 12-16-2023 12:00-0400 SaO2% (BldA) [Mass fraction] 97 % [facility] 12-16-2023 12:00-0400 Systolic blood pressure 154 mm[Hg] [facility] 12-16-2023 11:06-0400 Body mass index (BMI) [Ratio] 34.2 kg/m2 [facility] 12-16-2023 11:06-0400 Body weight 96.1 kg [facility] 12-16-2023 10:28-0400 Body height 167.64 cm [facility] 12-14-2023 12:49-0400 Body height 167.64 cm [facility] 12-14-2023 12:49-0400 Body temperature 98.2 [degF] [facility] 12-14-2023 12:49-0400 Diastolic blood pressure 63 mm[Hg] [facility] 12-14-2023 12:49-0400 Heart rate 69 /min [facility] 12-14-2023 12:49-0400 Respiratory rate 16 /min [facility] 12-14-2023 12:49-0400 SaO2% (BldA) [Mass fraction] 94 % [facility] 12-14-2023 12:49-0400 Systolic blood pressure 122 mm[Hg] [facility] 06-21-2023 19:29-0400 Diastolic blood pressure 70 mm[Hg] [facility] 06-21-2023 19:29-0400 Heart rate 64 /min [facility] 06-21-2023 19:29-0400 Respiratory rate 18 /min [facility] 06-21-2023 19:29-0400 SaO2% (BldA) [Mass fraction] 98 % [facility] 06-21-2023 19:29-0400 Systolic blood pressure 129 mm[Hg] [facility] 06-21-2023 16:10-0400 Body height 167.64 cm [facility] 06-21-2023 16:10-0400 Body mass index (BMI) [Ratio] 31.8 kg/m2 [facility] 06-21-2023 16:10-0400 Body temperature 97.3 [degF] [facility] 06-21-2023 16:10-0400 Body weight 89.4 kg [facility] 01-13-2016 07:51-0400 BMI (Body Mass Index) 25.82 kg/m2 [facility] Work Phone: 01-13-2016 07:51-0400 Body Temperature 98.1 [degF] [facility] Work Phone: 01-13-2016 07:51-0400 BP Diastolic 72 mm[Hg] [facility] Work Phone: 01-13-2016 07:51-0400 BP Systolic 128 mm[Hg] [facility] Work Phone: 01-13-2016 07:51-0400 BSA (Body Surface Area) 1.82 m2 [facility] Work Phone: 01-13-2016 07:51-0400 Pulse (Heart Rate) 65 /min [facility] Work Phone: 01-13-2016 07:51-0400 Pulse Oximetry 98 % [facility] Work Phone: 01-13-2016 07:51-0400 Respiratory Rate 16 /min [facility] Work Phone: 01-13-2016 07:51-0400 Weight 72.58 kg [facility] Work Phone: 05-01-2014 14:35-0400 Height 167.64 cm [facility] Work Phone: Encounters Encounter Date Encounter Type Care Provider Facility Start: 08-08-2025 ambulatory Ginna Miserena Facility: [facility] Start: 07-18-2025 ambulatory Markel Leyva Facility: [facility] Start: 07-07-2025 Encounter for genera l adult medical examination without abnormal findings [facility] Start: 06-28-2025 End: 06-28-2025 ambulatory [facility] Facility:[facility] Start: 05-08-2025 ambulatory Panda Ricks Facility:[facility] Start: 05-08-2025 End: 05-08-2025 Emergency department patient visit Dr. Ginna Kowalski MD Work Phone: -Emergency Department Work Phone: Start: 03-31-2025 End: 03-31-2025 Emergency department patient visit Dr. Ginna Kowalski MD Work Phone: -Emergency Department Work Phone: Start: 03-13-2025 Non-patient / Non-visit Emmie Tobin ch [facility] -[facility] Work Phone: Start: 03-13-2025 ambulatory Emmie Ramirez [employer] [employer] Facil ity:[facility] Start: 02-21-2025 End: 02-21-2025 Admission to same day surgery center Dr. Markel Leyva DPM -[facility] Start: 02-21-2025 End: 02-21-[address] Ginna Kowalski MD Work Phone: [facility] Work Phone: Start: 02-10-2025 Encounter for other preprocedural examination Ginna Kowalski [facility] Start: 02-07-2025 End: 02-07-[address] Ginna Kowalski MD Work Phone: [facility] Work Phone: Start: 02-07-2025 End: 02-07-[address] Saul Vaca MD -Laboratory Work Phone: Start: 02-07-2025 End: 02-07-2025 ambulatory Saul Vaca Facility:[facility] Start: 01-18-2025 End: 01-18-[address] Ginna Kowalski MD Work Phone: [facility] Work Phone: Start: 01-18-2025 End: 01-18-[address] Ginna Kowalski MD -Laboratory,Future Work Phone: Start: 01-18-2025 End: 01-18-2025 ambulatory Ginna Kowalski Facility:[facility] Start: 12-23-2024 Non-patient / Non-visit [facility]. Nicole VAZQUEZ [facility] Start: 12-23-2024 End: 12-23-[address] Ginna Kowalski MD Work Phone: [facility] Work Phone: Start: 12-23-2024 End: 12-23-[address] Ginna Kowalski MD -Cardiovascular Services Work Phone: Start: 12-23-2024 End: 12-23-20[facility] Start: 12-19-2024 End: 12-19-[address] Ginna Kowalski MD Work Phone: [facility] Work Phone: Start: 12-19-2024 End: 12-19-[address] Markel Leyva [facility] Work Phone: Start: 12-19-2024 End: 12-19-2024 ambulatory Ginna Mifederica Facility:[facility] Start: 07-22-2024 End: 07-22-2024 ambulatory [facility] Facility:[facility] Start: 12-17-2023 End: 12-17-2023 Emergency department patient visit [facility]-Emergency Department Work Phone: Start: 12-16-2023 End: 12-16-2023 Emergency department patient visit [facility]-Emergency Department Work Phone: Start: 12-14-2023 End: 12-14-2023 Emergency department patient visit [facility]-Emergency Department Work Phone: Start: 06-21-2023 End: 06-21-2023 Emergency department patient visit [facility]-Emergency Department Work Phone: Start: 04-26-2022 End: 04-26-[address] Leidy Crawford Work Phone: [facility] Start: 04-21-2022 End: 04-21-[address] Leidy Crawford Work Phone: [facility] Start: 12-21-2018 End: 12-21-2018 Patient encounter procedure SHAYY Ruth RODRIGO Facility:[facility] Procedures Date Procedure [...] Work Phone: Comment on above: Test Ordered: [id number] 25-Hydroxyvitamin D LCMS D2+[id number], Vitamin D 16 [L ] ng/mL ES Reference Range: .Reference Range:All Ages: Target levels 30 - [id number], Vitamin D-2 <1.0 ng/mL ES Reference Range: .This test was developed and its performance characteristicsdetermined by [employer]. It has not been cleared or approvedby the Food and Drug Administration.25-Hydroxy, Vitamin D-3 15 ng/mL ES Reference Range: .This test was developed and its performance characteristicsdetermined by [employer]. It has not been cleared or approvedby the Food and Drug Administration.Performed at: - [facility] [address] [id number] Director: Cristino Singleton MD, Phone: [phone] at: [address] [id number] Director: Miguel Benton PhD, Phone: [phone] Start: 01-18-[address] Ginna Kowalski MD Work Phone: Comment on above: This test was developed and its performa nce characteristicsdetermined by [facility]. It has not been cleared orapproved by the Food and Drug Administration.Cotinine levels greater than 20.0 are consistent with theuse of tobacco or tobacco cessation products.Performed at: - [facility], [place], [place] [id number] Director: Natacha Hays MD, Phone: [phone] Start: 12-19-2024 MRI of joint of lower [...] Activity Detail Author Start: 05-08-2025 End: 05-08-2025 [facility] Start: 05-08-2025 Foot min 3 Views Foot min 3 Views [facility] Start: 05-08-2025 US.doppler Lower extremity vein [facility] Start: 05-08-2025 XR Foot GE 3 Views [facility] Start: 03-31-2025 [facility] Start: 02-21-2025 Anes open proc bones lower leg/ankle/foot nos ANESTH LOWER LEG BONE SURG [facility] Start: 02-21-2025 Diagnostic bone marrow aspirations DX BONE MARROW ASPIRATIONS [facility] Start: 02-21-2025 Endoscopic plantar fasciotomy SCOPE PLANTAR FASCIOTOMY [facility] Start: 02-21-2025 Injection aa&/strd femoral nerve NJX AA&/STRD FEMORAL NRV IMG [facility] Start: 02-21-2025 Injection aa&/strd other peripheral nerve/branch NJX AA&/STRD OTHER PN/BRANCH [facility] Start: 02-21-2025 Ostectomy tarsal coalition REVISION OF FOOT [facility] Start: 02-21-2025 Osteot w/wo lngth shrt/corrj 1st metar INCISION OF METATARSAL [facility] Start: 06-13-2025 Osteotomy calcaneus w/wo internal fixation INCISION OF HEEL BONE [facility] Start: 02-21-2025 Tr/trnspl 1 tdn w/musc redirion/rerouting supfc REVISE LOWER LEG TENDON [facility] Start: 02-21-2025 Patient discharge [facility] Start: 01-18-2025 Procedure [facility] Start: 01-18-2025 Nicotine measurement [facility] Start: 12-17-2023 [facility] Start: 12-16-2023 [facility] Start: 12-14-2023 [facility] Start: 06-21-2023 [facility] Start: 07-20-2017 End: 07-20-2017 Appointment Appointment [facility] Work Phone: Start: 07-14-2017 End: 07-14-2017 Appointment Appointment [facility] Work Phone: Start: 07-04-2017 End: 07-04-2017 Appointment Appointment [facility] Work Phone: Start: 06-29-2017 End: 06-29-2017 Appointment Appointment [facility] Work Phone: Start: 06-09-2017 End: 06-09-2017 Radiologic exam knee complete 4/more views X-Ray, Knee [facility] Work Phone: Start: 06-01-2017 End: 06-01-2017 Appointment Appointment [facility] Work Phone: Start: 04-27-2017 End: 04-27-2017 Appointment Appointment [facility] Work Phone: Start: 04-13-2017 End: 04-13-2017 Appointment Appointment [facility] Work Phone: Start: 03-29-2017 End: 03-29-2017 Appointment Appointment [facility] Work Phone: Start: 03-10-2017 End: 03-10-2017 Appointment Appointment [facility] Work Phone: Start: 02-17-2017 End: 02-17-2017 Appointment Appointment [facility] Work Phone: Start: 01-23-2017 End: 01-23-2017 Mri any jt lower extrem w/o contrast matrl MRI Joint Lower Extremity [facility] Work Phone: Start: 01-23-2017 End: 01-23-2017 Mri jnt of lwr extre w/o dye MRI Joint Lower Extremity [facility] Work Phone: Start: 01-17-2017 End: 01-17-2017 *BFRW - Body Fluid RBC, WBC & DIFF *BFRW - Body Fluid RBC, WBC & DIFF [facility] Work Phone: Start: 01-17-2017 End: 01-17-2017 Bacteria identified in Body fluid by Culture *CUBF- Culture, Body Fluid [facility] Work Phone: Start: 01-17-2017 End: 01-17-2017 Crystals [type] in Body fluid by Light microscopy *PAO - Crystals, Body Fluid [facility] Work Phone: Start: 01-17-2017 End: 01-17-2017 Glucose [Mass/volume] in Body fluid *GLUBF - Glucose, Body Fluid [facility] Work Phone: Start: 01-17-2017 End: 01-17-2017 Protein in fluid *PROBF - Protein, Body Fluid [facility] Work Phone: Start: 01-17-2017 End: 01-17-2017 Appointment Appointment [facility] Work Phone: Start: 01-17-2017 End: 01-17-2017 *BFRW - Body Fluid RBC, WBC & DIFF *BFRW - Body Fluid RBC, WBC & DIFF [facility] Work Phone: Start: 01-17-2017 End: 01-17-2017 Bacteria identified in Body fluid by Culture *CUBF- Culture, Body Fluid [facility] Work Phone: Start: 01-17-2017 End: 01-17-2017 Crystals [type] in Body fluid by Light microscopy *PAO - Crystals, Body Fluid [facility] Work Phone: Start: 01-17-2017 End: 01-17-2017 Glucose *GLUBF - Glucose, Body Fluid [facility] Work Phone: Start: 01-17-2017 End: 01-17-2017 Glucose mass conc (Body fld) *GLUBF - Glucose, Body Fluid [facility] Work Phone: Start: 01-17-2017 End: 01-17-2017 Protein in fluid *PROBF - Protein, Body Fluid [facility] Work Phone: Start: 01-16-2017 End: 2017 Radiologic exam knee complete 4/more views X-Ray, Knee [facility] Work Phone: Start: 01-16-2017 End: 2017 X-ray exam, knee, 4 or more X-Ray, Knee [facility] Work Phone: Cotinine measurement [facility] Nicotine [Mass/volum e] in Serum or Plasma [facility] Patient Education [facility] Work Phone: Patient referral [facility] Work Phone: Immunizations Immunization Date Immunization Notes [facility] influenza, seasonal, injectable, preservative free Dr. Ginna Kowalski MD Work Phone: [facility] 07-27-2023 influenza, injectabl e, quadrivalent, preservative free [facility] 06-29-2022 influenza, injectabl e, quadrivalent, preservative free [facility] 10-12-2020 Covid (Moderna) Dr. Leidy bland Work Phone: [facility] 09-14-2020 Covid (Moderna) Dr. Leidy bland Work Phone: [facility] 06-29-2020 influenza, injectabl e, quadrivalent, preservative free [facility] 06-29-2020 influenza, seasonal, injectable Dr. Leidy Crawford Work Phone: [facility] Work Phone: 06-20-2019 influenza, injectabl e, quadrivalent, preservative free [facility] 06-20-2019 influenza, seasonal, injectable Dr. Leidy Crawford Work Phone: [facility] Work Phone: 06-08-[address] Leidy Crawford Work Phone: [facility] 06-08-2018 influenza, injectabl e, quadrivalent, preservative free [facility] 06-08-2018 influenza, seasonal, injectable Dr. Leidy Crawford Work Phone: [facility] Work Phone: 06-07-2017 influenza, injectabl e, quadrivalent, preservative free [facility] 06-07-2017 influenza, seasonal, injectable Dr. Leidy Crawford Work Phone: [facility] Work Phone: 06-09-2016 influenza, injectabl e, quadrivalent, preservative free [facility] 06-09-2016 influenza, seasonal, injectable Dr. Leidy Crawford Work Phone: [facility] Work Phone: 06-15-2015 influenza, injectabl e, quadrivalent, preservative free [facility] 06-15-2015 influenza, seasonal, injectable Dr. Leidy Crawford Work Phone: [facility] Work Phone: 06-11-2014 influenza, injectabl e, quadrivalent, preservative free [facility] 06-11-2014 influenza, seasonal, injectable Dr. eLidy Crawford Work Phone: [facility] Work Phone: 10-03-2013 tetanus toxoid, redu artemio diphtheria toxoid, and acellular pertussis vaccine, adsorbed Dr. Leidy Crawford Work Phone: [facility] Payers Date Payer Category Payer Self-pay [id number] 2024 Unknown [id number] 2016 Unknown [id number] 1965 Unknown [id number] 2.16.8 [id number] Self-pay [id number] Unknown [id number] 2.16.8 [id number] Unknown [id number] 2.16.8 [id number] Unknown [id number] 2.16.8 [id number] Unknown [id number] 2.16.8 [id number] Unknown [id number] 2.16.8 40.1.421316.3.579.2.462 Unknown [id number] 2.16.8 [id number] Unknown [id number] 2.16.8 40.1.277339.3.579.2.462 Unknown [id number] 2.16.8 [id number] Unknown [id number] 2.16.8 40.1.891996.3.579.2.462 Unknown [id number] 2.16.8 40.1.624865.3.579.2.462 Unknown [id number] 2.16.8 40.1.064829.3.579.2.462 Unknown [id number] 2.16.8 40.1.862480.3.579.2.462 Unknown [id number] 2.16.8 [id number] Unknown [id number] 2.16.8 [id number] Unknown [id number] 2.16.8 [id number] Social History Date Type Detail Facility Start: 02-29-2020 End: 12-17-2023 Tobacco smoking status NHIS Unknown if ever smoked [facility] Start: 07-19-2021 Occasional [facility] Start: 07-19-2021 None [facility] Start: 07-19-2021 Alone [facility] Start: 07-19-2021 Cigarettes [facility] Start: 1965 Sex Assigned At Female [facility] Start: 12-17-2023 End: 05-08-2025 Tobacco smoking status NHIS Smokes tobacco daily (finding) [facility] Start: 12-23-2024 End: 12-26-2024 Sex Female (finding) [facility] Not [facility] NEGATED: Highlighted row Not [facility] Medical Equipment Procedure Code Equipment Code Equipment [...] Fusion, talonavicular joint Orthopaedic bone screw (non-sliding) ()[id number] FDA Start: 02-21-2025 Fusion, talonavicular joint Orthopaedic bone screw (non-sliding) ()[id number] FDA Start: 02-21-2025 Fusion, talonavicular joint 2.7mm [...] Result Facility 02-21-2025 Cognitive function Light Pain [facility] Work Phone: 02-21-2025 Cognitive function Patient Orien tation Person;Place;Time [facility] Work Phone: Clinical Notes 12-17-2023 to 05-08-2025 Note Date & Type Note Facility 05-08-2025 Radiology Diagnostic study note [facility] Imaging Services [address] [place], [place] [address] Foot min 3 Views MR#: [id number] Acct: [id number] Name: DARWIN PORTILLO Rep #: [id number] : 1965 F 60 From: Chris Nobles MD PCP: Dr. Ginna Kowalski MD Status: REG ER Study:Foot min 3 Views Date of Exam: Exam# [id number] Ordering Dr: Karen Gonzales DO PROCEDURE: FOOT [...] at the 1st tarsometatarsal joint. Reading Location: [facility] CC: Dr. Melissa Gonzales DO; Dr. Ginna Kowalski MD ~ Internal Audit Manager: Signed [facility] 03-31-2025 Discharge summary [facility] 03-31-2025 Discharge summary Note Date/Time March 31, 2025 4:32pm [facility] Medical Records Department [address] [place] [address] Emergency Department Summary 03/31/25 MR#: [id number] Acct: [id number] Name: DARWIN PORTILLO Rep #:[id number] : 1965 60 From: Per Marrero MD [...] discharged home with outpatient follow-up with her clinical trials assistant for her left foot. Continue on her [...] % (Auto) 55.3 Lymph % (Auto) 35.6 Emanuel % (Auto) 6.9 Eos % (Auto) 1.1 [...] (50,000 unit) capsule 1,250 mcg PO QWEEK zafvvmshlc-ccvjofgkqx-irv-cod [id number] mg capsule 1 cap PO Q4H PRN [...] MD [Primary Care Provider] - Print Language: Divehi What to do if you have Problems For any increased pain, shortness of breath, bleeding, nausea or vomiting, chestpain, or any unexpected problems, contact your Primary Care Provider. Call [facility] ([phone]) or report to the closest Emergency Room. Call 911 if necessary. 03/31/25 4385 <Electronically signed by Per Marrero MD> Cosigner Signature (if applicable): CC: Dr. Ginna Kowalski MD ~ Signed [facility] Work Phone: 1(940) 421-969506-13-2025 Consult note [facility] Medical Records Department [address] [place] [address] Anesthesia Postop Eval I 02/21/25 1238 MR#: [id number] Acct: [id number] Name: DARWIN PORTILLO Rep #:[id number] : 1965 60 From: Sheree cheatham TDP DISPLAYS ANALYST PCP: Dr. Ginna Kowalski MD Status:REG SDC Y Race: C Location: [place] [address] Anesthesia: Postop Eval I Current Vital Signs [...] Postop Eval 1 completed: Yes 02/21/25 1238 kaliaki TDP DISPLAYS ANALYST> Date _ Sheree Simpson TDP DISPLAYS ANALYST Cosigner Signature: Date CC: ~ Signed [facility]06-13-2025 Consult note [facility] Medical Records Department [address] [place] [address] Anesthesia Postop Eval II 02/21/25 1255 MR#: [id number] Acct: [id number] Name: DARWIN PORTILLO Rep #:[id number] : 1965 60 From: Edgardo Toth MD PCP: Dr. Ginna Kowalski MD Status:REG SDC Y Race: C Location: [place] [address] Anesthesia Postop Eval I Sum Postop Eval Completion status Anesthesia document: Postop Eval 1 completed: Yes Anesthesia Postop Eval I Summary Anesthesia Postop Eval I Summary: Anesthesia Postop Eval I: Assessment Summary Airway patent Yes 02/21/25 12:38 TDP DISPLAYS ANALYST.SKOBY Spontaneous unlabored Yes 02/21/25 12:38 TDP DISPLAYS ANALYST.HENRRYOBY respirations Mental status Awake,Calm 02/21/25 12:38 TDP DISPLAYS ANALYST.SKOBY nausea No 02/21/25 12:38 TDP DISPLAYS ANALYST.SKOBY Vomiting No 02/21/25 12:38 TDP DISPLAYS ANALYST.SKOBY Anesthesia Postop Eval I: Fluid Summary Crystalloid volume administer 1,200 02/21/25 12:38 TDP DISPLAYS ANALYST.SKOBY (ml) Colloids volume administered ( ml) Blood Product volume administered (ml) Total IV fluid infused 1,200 02/21/25 12:38 TDP DISPLAYS ANALYST.HENRRYOBClifton Anesthesia Postop Eval I: Summary Notes Anesthesia Complication No 02/21/25 12:38 TDP DISPLAYS ANALYST.HENRRYOBClifton Anesthesia Complication Comment: Post-operative progress note Anesthesia: Postop Eval II Evaluation Mental status: Awake Pain Level: 2 nausea: No Vomiting: No 02/21/25 1255 > Date _ Edgardo Mayes Signature: Date CC: ~ Signed [facility]06-13-2025 Radiology Diagnostic study note [facility] Imaging Services [address] [place] [address] Foot min 3 Views MR#: [id number] Acct: [id number] Name: DARWIN PORTILLO Rep #: [id number] : 1965 F 60 From: Katarina Taveras MD PCP: Dr. Ginna Kowalski MD Status: REG SD Study:Foot min 3 Views Date of Exam: Exam# [id number] Ordering Dr: Alvarado Leyva DPJudy EXAM: XR Left Foot Complete, 3 or [...] to operative notefor further details. Reading Location: [facility] CC: DPJudy Leyva; Dr. Ginna Kowalski MD ~ Internal Audit Manager: Signed [facility]06-13-2025 Consult note Author Edgardo ronel [facility] Note Date/Time February 21, 2025 6:44 am [facility] Medical Records Department [address] [place] [address] Pre-Anesthesia Evaluation 02/21/25 0643 MR#: [id number] Acct: [id number] Name: DARWIN PORTILLO Rep #:[id number] : 1965 60 From: Edgardo Toth MD PCP: Dr. Ginna Kowalski MD Status:REG SD Y Race: C Location: [place] [address] ASA Classification* ASA Classification ASA Classification: 2 [...] LIGAMENT REPAIR Anesthesia History Anesthesia History - relationship advisor: Anesthesia History - relationship advisor Hx Hospitalization No 02/07/25 09:20 Any Problems [...] take am of surgery PONV PONV - relationship advisor: PONV - relationship advisor Female Yes 02/07/25 09:20 HX of Motion [...] 02/20/25 08:50 Respiratory Assessment Respiratory Assessment - relationship advisor: Respiratory Tract Infection Hx - relationship advisor Hx Respiratory Tract Infection No 02/07/25 09:20 STOP Sleep Apnea STOP Sleep Apnea - relationship advisor: STOP Sleep Apnea - relationship advisor Hx Hypertension No: HYPOTENSION 02/07/25 09:20 Hx [...] Tobacco Use History Tobacco Use History - relationship advisor: Tobacco Use History - relationship advisor Tobacco Use Cigarettes 07/19/21 08:09 Smoking Status Current every day smoker 02/07/25 09:20 Hx Tobacco Use Yes 02/07/25 09:20 Years Smoking Packs Smoked per Day Smoking Cessation Date was within the last 15 years Hx Smoking Cessation Date Hx Smoking Cessation Counseling Hematologic Medial History Hematologic Hx - relationship advisor: Hematologic Medical Hx - pipe buffer Hx of Blood Transfusion No 02/07/25 09:20 Hx of Transfusion in last 3 No 02/07/25 09:20 Months Date of Last Transfusion (if within last 3 months) Ever experience any problems No 02/07/25 09:20 with transfusion(s)? Specify any problems Hx of Preganancy in last 3 No 02/07/25 09:20 Months Nurse Filling Out Transfusion DSCHRIBER 02/07/25 09:20 & Questions: Date: 02/07/25 02/07/25 09:20 Time: 09:02/07/25 09:20 Patient unable to answer at this time (ie. confused, unrespo /Reproduction History /Reproductive History - relationship advisor: /Reproductive Hx- relationship advisor Hx Now No 02/07/25 09:20 Gestational Age [...] additional complaints, except as documented. 02/21/25 0644 <Electronically signed by Edgardo Toth MD > Date _ Edgardo Toth MD Cosigner Signature: Date CC: ~ Signed [facility] Work Phone: 1(833) 209-241906-13-2025 Evaluation note* Diagnosis Onset Date Resolution Status Admit Date Cavus deformity of left foot acute February 21, 2025 5:46am Other specified congenital deformities of feet acute February 21, 025 5:46am Pain in left foot acute February 212024 5:46am Primary osteoarthritis, left ankle and foot acute February 21, 2025 5:46am [facility] Work Phone: 1(649) 384-177106-13-2025 Consult note [facility] Medical Records Department [address] [place] [address] Pre-Anesthesia Evaluation 02/21/25 0643 MR#: [id number] Acct: [id number] Name: DARWIN PORTILLO Rep #:[id number] : 1965 60 From: Edgardo Toth MD PCP: Dr. Ginna Kowalski MD Status:REG SD Y Race: C Location: [place] [address] ASA Classification* ASA Classification ASA Classification: 2 [...] LIGAMENT REPAIR Anesthesia History Anesthesia History - relationship advisor: Anesthesia History - relationship advisor Hx Hospitalization No 02/07/25 09:20 Any Problems [...] take am of surgery PONV PONV - relationship advisor: PONV - relationship advisor Female Yes 02/07/25 09:20 HX of Motion [...] 02/20/25 08:50 Respiratory Assessment Respiratory Assessment - relationship advisor: Respiratory Tract Infection Hx - relationship advisor Hx Respiratory Tract Infection No 02/07/25 09:20 STOP Sleep Apnea STOP Sleep Apnea - relationship advisor: STOP Sleep Apnea - relationship advisor Hx Hypertension No: HYPOTENSION 02/07/25 09:20 Hx [...] Tobacco Use History Tobacco Use History - relationship advisor: Tobacco Use History - relationship advisor Tobacco Use Cigarettes 07/19/21 08:09 Smoking Status Current every day smoker 02/07/25 09:20 Hx Tobacco Use Yes 02/07/25 09:20 Years Smoking Packs Smoked per Day Smoking Cessation Date was within the last 15 years Hx Smoking Cessation Date Hx Smoking Cessation Counseling Hematologic Medial History Hematologic Hx - relationship advisor: Hematologic Medical Hx - pipe buffer Hx of Blood Transfusion No 02/07/25 09:20 [...] confused, unrespo /Reproduction History /Reproductive History - relationship advisor: /Reproductive Hx- relationship advisor Hx Now No 02/07/25 09:20 Gestational Age [...] MD Cosigner Signature: Date CC: ~ Signed [facility]04-07-2024 Discharge summary Author Per Marrero [facility] December 17, 2023 8:54pm Note Date/Time December 17, 2023 1:39 pm [facility] Medical Records Department [address] [place] [address] Emergency Department Summary 12/17/23 MR#: [id number] Acct: [id number] Name: BANDARDARWIN Rep #:[id number] : 1965 58 From: Per Marrero MD [...] similar symptoms: Yes Recent Illness/Hospitalization: No PFSH PFS Medical History Chest pain Family history of [...] your Primary Care Provider. Call [facility] ([phone]) or report to the closest Emergency Room. Call 911 if necessary. 12/17/232053 <Electronically signed by Per Marrero MD> Cosigner Signature (if applicable): CC: Dr. Leidy Crawford DO ~ Signed [facility] Work Phone: Consult note Author Sheree Simpson [facility] Note Date/Time February 21, 2025 1:38 pm [facility] Medical Records Department [address] [place] [address] Anesthesia Postop Eval I 02/21/25 1238 MR#: [id number] Acct: [id number] Name: DARWIN PORTILLO Rep #:[id number] : 1965 60 From: Sheree cheatham TDP DISPLAYS ANALYST PCP: Dr. Ginna Kowalski MD Status:REG SDC Y Race: C Location: [place] [address] Anesthesia: Postop Eval I Current Vital Signs [...] 02/21/25 1238 <Electronically signed by Sheree garcia TDP DISPLAYS ANALYST> Date _ Sheree Simpson TDP DISPLAYS ANALYST Cosigner Signature: Date CC: ~ Signed [facility] Work Phone: Consult note Author Edgardo Toth [facility] Note Date/Time February 21, 2025 1:38 pm [facility] Medical Records Department [address] [place] [address] Anesthesia Postop Eval II 02/21/25 1255 MR#: [id number] Acct: [id number] Name: DARWIN PORTILLO Rep #:[id number] : 1965 60 From: Edgardo Toth MD PCP: Dr. Ginna Kowalski MD Status:REG [facility] Y Race: C Location: [place] [address] Anesthesia Postop Eval I Sum Postop Eval Completion status Anesthesia document: Postop Eval 1 completed: Yes Anesthesia Postop Eval I Summary Anesthesia Postop Eval I Summary: Anesthesia Postop Eval I: Assessment Summary Airway patent Yes 02/21/25 12:38 TDP DISPLAYS ANALYST.HENRRYOBClifton Spontaneous unlabored Yes 02/21/25 12:38 TDP DISPLAYS ANALYST.HENRRYOBClifton respirations Mental status Awake,Calm 02/21/25 12:38 TDP DISPLAYS ANALYST.SKOBY nausea No 02/21/25 12:38 TDP DISPLAYS ANALYST.SKOBY Vomiting No 02/21/25 12:38 TDP DISPLAYS ANALYST.SKOBY Anesthesia Postop Eval I: Fluid Summary Crystalloid volume administer 1,200 02/21/25 12:38 TDP DISPLAYS ANALYST.SKOBY (ml) Colloids volume administered ( ml) Blood Product volume administered (ml) Total IV fluid infused 1,200 02/21/25 12:38 TDP DISPLAYS ANALYST.SKOBY Anesthesia Postop Eval I: Summary Notes Anesthesia Complication No 02/21/25 12:38 JANNET Anesthesia Complication Comment: Post-operative progress note Anesthesia: Postop Eval II Evaluation Mental status: Awake Pain Level: 2 nausea: No Vomiting: No 02/21/25 1815 <Electronically signed by Edgardo Toth MD > Date _ Edgardo Toth MD Cosigner Signature: Date CC: ~ Signed [facility] Work Phone: Evaluation noteNo assessment information available [facility] Work Phone: Hospital Discharge instructions Additional Instructions Motrin and Tylenol and pain meds as needed for pain. Plenty of fluids and rest. Continue antibiotics orally and/or follow-up for further IV antibiotics. Follow-up with a local dentist to have that tooth pulled.[facility] Work Phone: Hospital Discharge instructions Additional Instructions [...] letting me be involved in your surgical care![facility] Work Phone: Hospital Discharge instructionsAdditional Instructions Zofran as needed for nausea. Plenty of fluids and rest. Continue your Protonix. Follow-up with your primary care physician with any further bleeding or return to the emergency department.[facility] Work Phone: Hospital Discharge instructionsAdditional Instructions Please follow-up with Dr. Aguero's office tomorrow for recheck. If you have any issues feel free to call have his personal phone number [phone]. Your workup today was very reassuring with [...] feel better to then advance your walking again.[facility] Work Phone: Reason for referral (narrative)No reason for referral information availableWCenterville Work Phone: Summary Purpose Family History No [...] No February 29, 2020 1:05pm Power of Shoe Repairer Helper No February 28 1:05pm Advance Directive Response Recorded Date/ Time Advance Directives No May 01, 2014 9:39am Living Will No June 21 7:32pm Power of Shoe Repairer Helper No June 21, 2023 7:32pm Advance Directive Response Recorded Date/ Time Advance Directives No May 01, 2014 9:39am Living Will No December 14, 2023 12:52pm Power of Shoe Repairer Helper No December 13 12:52pm Advance Directive Response Recorded Date/ Time Advance Directives No May 01, 2014 9:39am Living Will No December 16, 2023 10:43am Power of Shoe Repairer Helper No December 15 10:43am Advance Directive Response Recorded Date/ Time Advance Directives No May 01, 2014 9:39am Living Will No December 17, 2023 12:59pm Power of Shoe Repairer Helper No December 16 12:59pm Advance Directive Response Recorded Date/ Time Living Will No December 17, 2023 12:59pm Do you have a Healthcare Power of Shoe Repairer Helper? No December 17, 2023 12:59pm Advance Directives No May 01, 2014 9:39am Advance Directive Response Recorded Date/ Time Living Will No December 17, 2023 12:59pm Do you have a Healthcare Power of Shoe Repairer Helper? No December 17, 2023 12:59pm Do you have a Healthcare Power of Shoe Repairer Helper? No February 07, 2025 9:20am Advance Directives No May 01, 2014 9:39am Advance Directive Response Recorded Date/ Time Living Will No December 17, 2023 12:59pm Do you have a Healthcare Power of Shoe Repairer Helper? No December 17, 2023 12:59pm Do you have a Healthcare Power of Shoe Repairer Helper? No February 07, 2025 9:20am Do you have a Healthcare Power of Shoe Repairer Helper? No March 31, 2025 3:56pm Advance Directives No May 01, 2014 9:39am Advance Directive Response Recorded Date/ Time Do you have a Healthcare Power of Shoe Repairer Helper? No February 07, 2025 9:20am Do you have a Healthcare Power of Shoe Repairer Helper? No May 08, 2025 3:37pm Do you have a Healthcare Power of Shoe Repairer Helper? No March 31, 2025 3:56pm Advance Directives [...] E ORDER February 07, 2025 12:42 pm [facility] bone marrow aspirate Tarah starks February [...] E ORDER February 07, 2025 12:42 pm [facility] of bone marrow aspirate Tarah starks February 21, 2025 5:46am Amb Documentation March 13, 2025 1:07p m NAUSEA/VOMITING March 31, 2025 3:31 pm Chief Complaint Admit Date PRE OP LABS January 18, 2025 2:19p m E ORDER February 07, 2025 12:42 pm [facility] of bone marrow aspirate concentr Tarah oleary February 21, 2025 5:46am Amb Documentation March 13, 2025 1:07p m NAUSEA/VOMITING March 31, 2025 3:31 pm INCREASED FOOT PAIN May 08, 2025 1: 25pm Additional Source Comments INFORMATION SOURCE (unrecogn ized section and content) DATE CREATED AUTHOR 01/04/2019 [facility] DATE CREATED AUTHOR AUTHOR'S ORGANIZ ATION 01/04/2019 [facility] DATE CREATED AUTHOR AUTHOR'S ORGANIZ ATION 07/19/2025 [facility] Goals (unrecognized section and content) Goals may [...] Active Start: December 23, 2024 Dr. Ginna Koawlski MD Attending Provider Active Start: December 23, [...] Status: Active Member Role/Relationship Status Dates Dr. iGnna Kowalski MD Primary Care Provider Active Team Status: Inactive Member Role/Relationship Status Dates Dr. Ginna Kowalski MD Primary Care Provider Active Start: December 19, 2024 End: December 19, 2024 Dr. Markel Leyva DPM Attending Provider Active Start: December 19, 2024 End: December 19, 2024 Dr. Markel eLyva DPM Referring Provider Active Start: December 19, [...] Active Start: March 13, 2025 Emmie Ramirez FREIGHT FORWARDER, FREIGHT FORWARDER-C Attending Provider Active Start: March 13, 2025 [...] Active Start: March 13, 2025 Emmie Ramirez FREIGHT FORWARDER, FREIGHT FORWARDER-C Attending Provider Active Start: March 13, 2025 [...] BE BASED ON THE PRIMARY CLINICAL RECORDS. [facility] [employer] provides no warranty or guarantee of the accuracy or completeness of information in this document.
== END | disposition home or self-care (01) ==
LOC: OPBI 12:07
PROVIDERS: PCP Family Medicine; Referring Provider Family Medicine; Visit Provider Family Medicine
DX: Z12.31 Encounter for screening mammogram for malignant neoplasm of breast (principal)
CPT/HCPCS: 77063; 77067